=== PATIENT | female | born 1950 | race Caucasian/White ===

== ENCOUNTER → 2017-08-26 | Outpatient (CLI) | payer OTHER ==
[~2017-08-26] MED LIST: ASP81CT PO; ASP81TEC PO; ATOR80TA PO; CARV12.53 PO; CLOP75TA PO; DULO60CA6 PO; GLIP10TA13 PO; LIRA0.6P SQ; METF-380 PO; NIA500ERT PO; OMG1KC PO; UBID30CA13 PO
--- NOTE | 2017-08-26 12:24 | Diagnostic Imaging Report ---
PROCEDURE: US abdomen complete. TECHNIQUE: Multiple real-time grayscale images were obtained over the abdomen in various projections. INDICATION: Abdominal pain Units: The visualized portions of the pancreas appear markable. The liver is fairly homogeneous. It is the slightly enlarged measuring the 21.6 CM in craniocaudal extent dimension. There is hepatopedal flow the portal vein. There is some no gallstone or from progressive fluid. The there is slight wall thickening with ringdown artifact in the gallbladder fundus area suggestive of adenomyomatosis. Sonographic Hernadez sign is reportedly negative. The CBD is the 4 mm in caliber. The spleen is 10.7 CM in length. The abdominal aorta demonstrate the focal ectasia measuring up to 2.6 CM in caliber in its mid segment without a large aneurysm. The IVC visualized portions appear grossly unremarkable. The right kidney is 10.8 and the left kidney is also 10.8 CM in length. No hydronephrosis or focal lesion. No fluid collection or ascites in the abdomen seen. Impression: 1. No gallstones. 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 2. Hepatomegaly. Dictated by: Dictated on workstation # [id number]
== END ==
LOC: RAD 06:43
PROVIDERS: ATTEND Family Medicine
DX: R16.0 Hepatomegaly, not elsewhere classified (principal); D13.5 Benign neoplasm of extrahepatic bile ducts
CPT/HCPCS: 76700

== ENCOUNTER → 2017-08-29 | Outpatient (CLI) | payer OTHER ==
--- NOTE | 2017-08-29 15:57 | Diagnostic Imaging Report ---
EXAMINATION: Transabdominal and transvaginal pelvic ultrasound. INDICATION: Left upper quadrant pain. FINDINGS: The uterus is 6.8 x 4.4 x 3.1 cm. The endometrial stripe is 0.9 cm in caliber. The myometrium is slightly heterogenous with no discrete focal mass. The endometrial stripe is thickened at 0.9 cm. This could relate to endometrial hyperplasia, polyp or cancer. The ovaries are obscured by bowel gas and are probably atrophic. No definite adnexal mass or fluid collection is seen. IMPRESSION: There is a thickening of the endometrial stripe up to 0.9 cm. Differential considerations include endometrial hyperplasia, polyp or carcinoma. The findings were discussed with Ms. Ave Arora, the nurse practitioner working with Dr. Barnes at time of dictation, by phone. Dictated by: Dictated on workstation # [id number]
== END ==
LOC: RAD 14:52
PROVIDERS: ATTEND Family Medicine
DX: R93.8 Abnormal findings on diagnostic imaging of other specified body structures (principal); R10.12 Left upper quadrant pain
CPT/HCPCS: 76830; 76856

== ENCOUNTER 2017-09-12 14:30 | Outpatient (CLI) | payer OTHER ==
[~2017-09-12] VITALS: Ht 170.2 cm; Wt 78.5 kg
[2017-09-12] MEDS ORDERED: CLOP75TA28 PO (14:53)
[2017-09-12] MEDS ORDERED: LISI-556 PO (14:53)
[2017-09-12] MEDS ORDERED: ASPI-999 PO (14:53)
[2017-09-12] MEDS ORDERED: CARV12.53 PO (14:53)
[2017-09-12] MEDS ORDERED: METF500T4 PO ×2 (14:53)
[2017-09-12] MEDS ORDERED: ROSU40TA20 PO (14:53)
[2017-09-12] MEDS ORDERED: GLIP10TA13 PO (14:53)
[2017-09-12] MEDS ORDERED: DULA1.5P2 SQ (14:53)
[2017-09-12] MEDS ORDERED: DULO60CA58 PO (14:53)
== END 2017-09-12 14:54 ==
LOC: PREOP 14:30
PROVIDERS: ATTEND Surgery
DX: Z01.818 Encounter for other preprocedural examination (principal); Z86.010 Personal history of colon polyps; Z80.0 Family history of malignant neoplasm of digestive organs

== ENCOUNTER 2017-09-18 09:25 | Day surgery (SDC) | payer OTHER ==
[~2017-09-18] VITALS: Ht 170.2 cm; Wt 78.5 kg
[~2017-09-18 09:25] MED LIST changes: +ASPI-999 PO; +CLOP75TA28 PO; +DULA1.5P2 SQ; +DULO60CA58 PO; +LISI-556 PO; +METF500T4 PO; +ROSU40TA20 PO
[2017-09-18] MEDS ORDERED: NS IV 500 ML 500 ML IV PRN (09:37)
[2017-09-18] MEDS ORDERED: NS IV 500 ML 500 ML ONE (09:39)
[2017-09-18] MEDS ORDERED: LIDOCAINE JELLY 2% (XYLOCAINE) 5 ML TUBE MM PRN (09:45)
[2017-09-18] MEDS ORDERED: LIDOCAINE JELLY 2% (XYLOCAINE) 5 ML TUBE ONE (09:47)
[2017-09-18] MEDS ORDERED: fentaNYL INJECTION 100 MCG/2 ML AMP ONE ×2 (09:47)
[2017-09-18 09:48] VITALS: BP 128/71
[2017-09-18] MEDS ORDERED: MIDAZOLAM 2 MG/2 ML (VERSED) VIAL ONE ×4 (09:48)
--- NOTE | 2017-09-18 10:02 | Conscious Sedation/ASA ---
Conscious Sedation Pre-Proced Time Reviewed: 09:30 ASA Class: 2 Airway Mallampati Classification: ([place] appropriate class) I. II. III, IV Lungs Heart ASA score ASA 1: a normal healthy patient ASA 2: a patient with a mild systemic disease (mid diabetes, controlled hypertension, obesity ASA 3: a patient with a severe systemic disease that limits activity (angina , COPD, prior Myocardial infarction) ASA 4: a patient with an incapacitating disease that is a constant threat to life (CHF, renal failure) ASA 5: a moribund patient not expected to survive 24 hrs. (ruptured aneurysm) ASA 6: a declared brain patient whose organs are being harvested. For emergent operations, add the letter E after the classification Grade 2 Sedation Plan: Analgesia, Amnesia, Plan communicated to team members, Discussed options with patient/fam, Discussed risks with patient/fam Note The patient is an appropriate candidate to undergo the planned procedure, sedation, and anesthesia. The patient immediately re-assessed prior to indication. OLIVIA SORENSON MD Sep 18, 2017 10:02 am
[2017-09-18] MEDS: fentaNYL INJECTION 100 MCG/2 ML AMP IVP PRN ×4 (10:03→10:30)
--- NOTE | 2017-09-18 10:03 | Progress Note-Pre Operative ---
Pre-Operative Progress Note H&P Reviewed The H&P was reviewed, patient examined and no changes noted. Date Seen by Provider: Sep 18, 2017 Time Seen by Provider: 09:30 Date H&P Reviewed: Sep 18, 2017 Time H&P Reviewed: 09:30 Pre-Operative Diagnosis: family hx colon ca OLIVIA SORENSON MD Sep 18, 2017 10:03 am
[2017-09-18] MEDS: MIDAZOLAM 2 MG/2 ML (VERSED) VIAL IVP PRN ×4 (10:04→10:18)
--- NOTE | 2017-09-18 10:05 | Discharge Inst-Surgical ---
D/C Lap Instructions-YAS Follow Up 5 yrs Activity as tolerated High Fiber Diet 25g or more per day Avoid Alcohol, Caffeine, Spicy [place] and Acid foods. Drink 64 fluid oz or more of fluids per day. Symptoms to Report: Fever over 101 degree F, Nausea/Vomiting If any problems/questions: Contact your physician or go to Emergency Room OLIVIA SORENSON MD Sep 18, 2017 10:05 am
--- OUTSIDE RECORDS SUMMARY | 2017-09-18 10:13 | XMS REPORT | Continuity of Care Document ---
Author Author [facility] Organization [facility] Address Unknown Phone Unavailable Allergies Active Description Code Type Severity Reaction Onset Reported/Identified Relationship to Patient Clinical Status Yes No Allergy Information Available [id number] Drug Allergy Unknown N/A 02/14/2016 Medications Problems Date Dx Coded Attending Type Code Diagnosis Diagnosed By 02/14/2016 Ot 397.0 02/14/2016 Ot 401.9 02/14/2016 Ot 414.00 02/14/2016 Ot 424.0 02/14/2016 Ot 401.9 02/14/2016 Ot 414.00 02/14/2016 Ot 397.0 02/14/2016 Ot 414.00 02/14/2016 Ot 424.0 02/14/2016 Ot 428.0 02/14/2016 Ot 786.50 02/14/2016 Ot 793.2 02/14/2016 GERSON BARKER, PHYLLIS Morales Ot I65.23 02/21/2016 Ot 397.0 02/21/2016 Ot 401.9 02/21/2016 Ot 414.00 02/21/2016 Ot 424.0 02/21/2016 Ot 401.9 02/21/2016 Ot 414.00 02/21/2016 Ot 397.0 02/21/2016 Ot 414.00 02/21/2016 Ot 424.0 02/21/2016 Ot 428.0 02/21/2016 Ot 786.50 02/21/2016 Ot 793.2 02/22/2016 PRAVEEN VILLAVICENCIO Ot E11.9 02/22/2016 PRAVEEN VILLAVICENCIO Ot E78.2 02/22/2016 PRAVEEN VILLAVICENCIO Ot I10 02/22/2016 PRAVEEN VILLAVICENCIO Ot I25.10 02/23/2016 PRAVEEN VILLAVICENCIO Ot E11.9 02/23/2016 PRAVEEN VILLAVICENCIO Ot E78.2 02/23/2016 RENETTA VILLAVICENCIOTH K Ot I10 02/23/2016 BERNABE PA, PRAVEEN K Ot I25.10 02/27/2016 BERNABE PA, PRAVEEN K Ot E11.9 02/27/2016 BERNABE PA, PRAVEEN K Ot E78.2 02/27/2016 BERNABE PA, PRAVEEN K Ot I10 02/27/2016 BERNABE PA, PRAVEEN K Ot I25.10 02/28/2016 BERNABE PA, PRAVEEN K Ot E11.9 02/28/2016 BERNABE PA, PRAVEEN K Ot E78.2 02/28/2016 BERNABE PA, PRAVEEN K Ot I10 02/28/2016 BERNABE PA, PRAVEEN K Ot I25.10 02/29/2016 GERSON BARKER, PHYLLIS Morales Ot I65.23 03/04/2016 BRENABE ROLDAN, PRAVEEN K Ot E11.9 TYPE 2 DIABETES MELLITUS WITHOUT COMPLIC 03/04/2016 BERNABE PA, PRAVEEN K Ot E78.2 MIXED HYPERLIPIDEMIA 03/04/2016 BERNABE PA, PRAVEEN K Ot I10 ESSENTIAL (PRIMARY) HYPERTENSION 03/04/2016 BERNABE ROLDAN, PRAVEEN Dolores Ot I25.10 ATHSCL HEART DISEASE OF [place] CORONARY 03/07/2016 BERNABE ROLDAN, PRAVEEN K Ot E11.9 TYPE 2 DIABETES MELLITUS WITHOUT COMPLIC 03/07/2016 BERNABE ROLDAN, PRAVEEN K Ot E78.2 MIXED HYPERLIPIDEMIA 03/07/2016 BERNABE PA, PRAVEEN K Ot I10 ESSENTIAL (PRIMARY) HYPERTENSION 03/07/2016 BERNABE PA, PRAVEEN K Ot I25.10 ATHSCL HEART DISEASE OF [place] CORONARY 03/15/2016 BERNABE ROLDAN, PRAVEEN K Ot E11.9 TYPE 2 DIABETES MELLITUS WITHOUT COMPLIC 03/15/2016 BERNABE PA, PRAVEEN K Ot E78.2 MIXED HYPERLIPIDEMIA 03/15/2016 BERNABE PA, PRAVEEN K Ot I10 ESSENTIAL (PRIMARY) HYPERTENSION 03/15/2016 BERNABE ROLDAN, PRAVEEN K Ot I25.10 ATHSCL HEART DISEASE OF [place] CORONARY 08/06/2017 Ot 397.0 TRICUSPID VALVE DISEASE 08/06/2017 Ot 414.00 CORON ATHEROSCLER NOS TYPE VESSEL, NATIV 08/06/2017 Ot 424.0 MITRAL VALVE DISORDER 08/06/2017 Ot 428.0 CONGESTIVE HEART FAILURE NOS 08/06/2017 Ot 786.50 CHEST PAIN NOS 08/06/2017 Ot 793.2 NOSP (ABN) FINDINGS ON RADIOLOGICAL OT 08/06/2017 PRAVEEN VILLAVICENCIO Ot E11.9 TYPE 2 DIABETES MELLITUS WITHOUT COMPLIC 08/06/2017 PRAVEEN VILLAVICENCIO Ot E78.2 MIXED HYPERLIPIDEMIA 08/06/2017 PRAVEEN VILLAVICENCIO Ot I10 ESSENTIAL (PRIMARY) HYPERTENSION 08/06/2017 PRAVEEN VILLAVICENCIO Ot I25.10 ATHSCL HEART DISEASE OF [place] CORONARY 09/04/2017 UDAY SALAZAR MD Ot R10.12 LEFT UPPER QUADRANT PAIN 09/04/2017 UDAY SALAZAR MD Ot R93.8 ABNORMAL FINDINGS ON DIAGNOSTIC IMAGING 09/06/2017 UDAY SALAZAR MD Ot 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 Visit Date/Time Discharge Status Pt. Type Provider Facility Loc./Unit Complaint [id number] 09/11/2017 05:30:00 2016 23:59:59 CLS Outpatient OLIVIA SORENSON MD [facility] PREOP COLO [id number] 08/29/2017 14:52:00 2016 23:59:59 CLS Outpatient UDAY SALAZAR MD [facility] RAD ABDOMINAL PAIN LUQ R10.12 [id number] 08/26/2017 06:43:00 2016 23:59:59 CLS Outpatient UDAY SALAZAR MD [facility] RAD ABDOMINAL PAIN LEFT UPPER QUADRANT [id number] 08/08/2017 15:15:00 2016 23:59:59 CLS Preadmit MARTIN BARKER, UDAY R [facility] RAD LUQ ABD PAIN [id number] 02/27/2016 07:08:00 2015 23:59:59 CLS Outpatient PRAVEEN VILLAVICENCIO [facility] CARD [id number] 02/21/2016 14:51:00 2015 23:59:59 CLS Outpatient PRAVEEN VILLAVICENCIO [facility] CARD CAD,HTN,HLP, NIDDM [id number] 02/14/2016 13:02:00 2015 23:59:59 CLS Outpatient GERSON BARKER, PHYLLIS Morales [facility] RAD [id number] 09/18/2017 09:30:00 PEN Preadmit OLIVIA SORENSON MD [facility] ENDO FAM HX COLON CA, HX POLYPS [id number] 02/21/2016 14:51:00 Document Registration [id number] 02/25/2013 10:45:00 Document Registration [id number] 08/13/2011 07:02:00 Document Registration [id number] 08/10/2011 08:28:00 Document Registration
[2017-09-18] MEDS ORDERED: ONDANSETRON 4 MG/2 ML (SDV) Z0FRAN IV PRN (10:15)
[2017-09-18] MEDS ORDERED: HYDROcodone/APAP 5 MG/325 MG (LORTAB) TAB PO PRN (10:15)
[2017-09-18] MEDS ORDERED: morphine INJ 10 MG/ML 1ML (SYR OR VIAL) IV PRN (10:15)
[2017-09-18] MEDS ORDERED: ACETAMINOPHEN 325 MG TABLET/CAPLET (TYLENOL) PO PRN (10:15)
--- NOTE | 2017-09-18 10:58 | Progress Note-Post Operative ---
Post-Operative Progess Note Surgeon (s)/Switch Technician (s) Surgeon OLIVIA SORENSON MD Switch Technician: none Pre-Operative Diagnosis family hx colon ca Post-Operative Diagnosis chronic stage 2 ext and int hemorrhoids, moderate sigmoid diverticulosis, polyp tranverse colon(2mm), polyp ascending(3mm). Procedure & Operative Findings Date of Procedure 09/18/17 Procedure Performed/Findings Colonoscopy with bx. Anesthesia Type CS Estimated Blood Loss Estimated blood loss (mL): minimal Specimens/Packing Specimens Removed transverse and ascending colon polyp OLIVIA SORENSON MD Sep 18, 2017 10:58 am
[2017-09-18 11:00] VITALS: BP 132/76
[2017-09-18 11:30] VITALS: BP 122/61
[2017-09-18 12:10] VITALS: BP 122/61
--- NOTE | 2017-09-19 04:11 | OPERATIVE REPORT ---
DATE OF SERVICE: 09/18/2017 ATTENDING PHYSICIAN: Dr. Barnes. PREOPERATIVE DIAGNOSES: History of polyps, family history of colon cancer. POSTOPERATIVE DIAGNOSES: Chronic stage II external and internal hemorrhoids, moderate sigmoid diverticulosis, small polyp of the transverse colon and ascending colon. PROCEDURE: Colonoscopy with biopsy. SURGEON: Dr. Sorenson. ANESTHESIA: Conscious sedation. ESTIMATED BLOOD LOSS: Minimal. FINDINGS: Chronic stage II external and internal hemorrhoids, moderate sigmoid diverticulosis, small polyp of the transverse as well as ascending colon. The transverse colon polyp was approximately 2 mm in size and flat. The ascending colon polyp was approximately 3 mm in size and slightly more raised. DISPOSITION: The patient tolerated the procedure well. The patient is a 66-year-old female in need of a followup colonoscopy. Her last colonoscopy was approximately 8 years ago and on that one she did have polyps identified. She also does have a family history of colon cancer with her father having the disease around 36 years of age as well as her daughter having a disease around 34 years of age. She also has had some abdominal pain in the right upper quadrant region. An ultrasound did show gallbladder adenomyomatosis The patient was brought to the endoscopy suite, laid in the left lateral decubitus position. After adequate IV pain and sedative medications and conscious sedation anesthesia, a digital rectal examination was performed. Chronic stage II external and internal hemorrhoids were identified, which are not actively edematous or inflamed and no bleeding. Normal sphincter tone was felt and there were no palpable masses. The endoscope was then intubated to the anus and rectum and gently insufflated. The endoscope was then advanced to the valves of [place] of the rectum with no polyps or any neoplasms identified. We then proceeded through the sigmoid colon where a moderate sigmoid diverticulosis identified. There were no mucosal inflammatory change to indicate any acute diverticulitis. The endoscope was then advanced to the descending colon and into the transverse colon. At approximately the distal transverse colon, flat, hyperplastic appearing polyp was identified approximately 2 mm in size. This was biopsied and destroyed using forceps and electrocautery with visualization of good hemostasis. The endoscope was then advanced through the remainder of the transverse and ascending colon. At the ascending colon, a slightly larger and more raised polyp was identified approximately 3 mm in size. This was again biopsied and destroyed with forceps and cautery with visualization of good hemostasis. The endoscope was then advanced to the cecum, which appeared normal. The endoscope was then slowly withdrawn when taking a second look and suctioning of residual air with no additional findings. The patient tolerated the procedure well. We will recommend a high fiber diet with at least 30 grams of fiber per day as well as at least 64 fluid ounces of water daily to promote soft stools on a daily basis. Due to her history of recurrent colon polyps as well as strong family history of colon cancer, we will recommend continued close follow up with colonoscopy every 5 years. Job ID: [id number] DocumentID: [id number] Dictated Date: 09/18/2017 10:49:28 Automobile Drivers Date: 09/18/2017 16:19:41 Dictated By: OLIVIA SORENSON MD
== END 2017-09-18 12:10 | disposition home or self-care (01) ==
LOC: ENDO 09:25
PROVIDERS: ATTEND Surgery
DX: Z12.11 Encounter for screening for malignant neoplasm of colon (principal); D12.2 Benign neoplasm of ascending colon; D12.3 Benign neoplasm of transverse colon; K57.30 Diverticulosis of large intestine without perforation or abscess without bleeding; K64.1 Second degree hemorrhoids; Z86.010 Personal history of colon polyps; Z80.0 Family history of malignant neoplasm of digestive organs; E11.42 Type 2 diabetes mellitus with diabetic polyneuropathy; I25.10 Atherosclerotic heart disease of native coronary artery without angina pectoris; Z86.73 Personal history of transient ischemic attack (TIA), and cerebral infarction without residual deficits; Z79.84 Long term (current) use of oral hypoglycemic drugs; Z79.899 Other long term (current) drug therapy

== ENCOUNTER 2017-10-04 09:10 | Outpatient (CLI) | payer OTHER ==
[~2017-10-04] VITALS: Ht 170.2 cm; Wt 77.1 kg
[2017-10-04 09:24] VITALS: BP 100/65
[2017-10-04] MEDS ORDERED: SPIR25TA3 PO (09:32)
[2017-10-04 09:53] LABS: BASOPHILS % (AUTO) 0 % (0-10); EOSINOPHILS # (AUTO) 0.1 10^3/uL (0.0-0.3); EOSINOPHILS % (AUTO) 1 % (0-10); LYMPHOCYTES # (AUTO) 2.8 X 10^3 (1.0-4.0); LYMPHOCYTES % (AUTO) 28 % (12-44); MEAN CORPUSCULAR HEMOGLOBIN 31 PG (25-34); MEAN CORPUSCULAR HGB CONC 33 G/DL (32-36); MEAN CORPUSCULAR VOLUME 92 FL (80-99); MEAN PLATELET VOLUME 11.5 FL (7.4-10.4); MONOCYTES # (AUTO) 0.8 X 10^3 (0.0-1.0); MONOCYTES % (AUTO) 9 % (0-12); NEUTROPHILS # (AUTO) 6.1 X 10^3 (1.8-7.8); NEUTROPHILS % (AUTO) 62 % (42-75); PLATELET COUNT 175 10^3/uL (130-400); RED BLOOD COUNT 4.79 10^6/uL (4.35-5.85); RED CELL DISTRIBUTION WIDTH 13.4 % (10.0-14.5); WHITE BLOOD COUNT 9.9 10^3/uL (4.3-11.0)
== END 2017-10-04 10:03 | disposition home or self-care (01) ==
LOC: PREOP 09:10
PROVIDERS: ATTEND Obstetrics & Gynecology
DX: Z01.818 Encounter for other preprocedural examination (principal); R93.8 Abnormal findings on diagnostic imaging of other specified body structures
CPT/HCPCS: 36415; 85025; 86850; 86900; 86901; 87081

== ENCOUNTER 2017-10-11 06:09 | Day surgery (SDC) | payer OTHER ==
[~2017-10-11] VITALS: Ht 170.2 cm; Wt 77.1 kg
[~2017-10-11 06:09] MED LIST changes: +SPIR25TA3 PO
[2017-10-11 06:20] VITALS: BP 106/65
[2017-10-11] MEDS ORDERED: LACTATED RINGERS 1,000 ML IV PRN (06:28)
[2017-10-11] MEDS ORDERED: LIDOCAINE PF 2% 5 ML (XYLOCAINE) VIAL ONE (07:00)
[2017-10-11] MEDS ORDERED: proPOfol 200 MG/20 ML (DIPRIVAN) VIAL IV ONE (07:00)
[2017-10-11] MEDS ORDERED: SEVOFLURANE (ULTANE) 15 ML INHAL SOLN ONE (07:00)
[2017-10-11] MEDS ORDERED: MIDAZOLAM 2 MG/2 ML (VERSED) VIAL ONE (07:01)
[2017-10-11] MEDS ORDERED: fentaNYL INJECTION 100 MCG/2 ML AMP ONE (07:01)
[2017-10-11] MEDS ORDERED: BUPIVACAINE 0.25% 30 ML (SENSORCAINE) VIAL ONE (07:02)
[2017-10-11] MEDS ORDERED: D5 LR IV SOLUTION 1,000 ML IV SCH (07:05)
--- NOTE | 2017-10-11 07:05 | Progress Note-Pre Operative ---
Pre-Operative Progress Note H&P Reviewed The H&P was reviewed, patient examined and no changes noted. Date Seen by Provider: Oct 11, 2017 Time Seen by Provider: 07:00 Date H&P Reviewed: Oct 11, 2017 Time H&P Reviewed: 06:55 Pre-Operative Diagnosis: Thickened endometrium on US, Postmenopausal JOHN CRUZ DO Oct 11, 2017 7:05 am
[2017-10-11] MEDS ORDERED: ACET-789 PO (07:11)
[2017-10-11] MEDS ORDERED: IBUP-1773 PO (07:11)
--- NOTE | 2017-10-11 07:12 | Discharge Inst-Women's Service ---
Discharge Inst-Women's Serv Depart Medication/Instructions New, Converted or Re-Newed RX: RX on Chart Consults/Follow Up Additional Follow Up: Yes Orders/Referrals Dr. Cruz in 3 weeks. Activity Activity: Activity as Tolerated Driving Instructions: You May Drive (do not drive today) NO SMOKING: NO SMOKING Nothing Inside Vagina: No Douching, No [place], No Tampons Other Activity Wait to restart plavix until Saturday10/14/2017 Diet Discharge Diet: No Restrictions Symptoms to Report to : Bleeding Excessive, Pain Increased, Fever Over 101 Degrees F, Vaginal Bleeding Increase, Questions/Concerns For Any Problems or Questions: Contact Your Physician Skin/Wound Care Bathing Instructions: Shower (x 1 week) JOHN CRUZ DO Oct 11, 2017 07:12
[2017-10-11] MEDS ORDERED: APAP 300 MG/CODEINE 30 MG (TYLENOL #3) TAB PO PRN (07:15)
[2017-10-11] MEDS ORDERED: KETOROLAC 30 MG/ML VIAL IVP ONE (07:15)
[2017-10-11] MEDS ORDERED: ONDANSETRON 4 MG/2 ML (SDV) Z0FRAN IVP PRN ×2 (07:15→08:00)
[2017-10-11] MEDS ORDERED: morphine INJ 10 MG/ML 1ML (SYR OR VIAL) IVP PRN (08:00)
[2017-10-11] MEDS ORDERED: MEPERIDINE (DEMEROL) INJ 50 MG/ML IVP PRN (08:00)
[2017-10-11 08:35] VITALS: BP 127/68
--- NOTE | 2017-10-11 08:56 | OPERATIVE REPORT ---
DATE OF SERVICE: PREOPERATIVE DIAGNOSIS: A 66-year-old female who is postmenopausal with thickened endometrium. POSTOPERATIVE DIAGNOSIS: A 66-year-old female who is postmenopausal with thickened endometrium. PROCEDURE: D and C with hysteroscopy. SURGEON: Dr. John Cruz. ANESTHESIA: General endotracheal. EBL: Minimal. URINE OUTPUT: 30 mL clear drained at the beginning of the procedure. FLUIDS: 200 mL Lactated Ringer's solution. FINDINGS: An age appropriate atrophied appearing endometrial cavity with normal appearing cervix, age appropriate vaginal atrophy with a grade 2 rectocele and a grade 2 cystocele. SPECIMEN SENT: Endometrial curettings. INDICATION FOR PROCEDURE: This is a 66-year-old female as a consultation to me from Dr. Barnes for finding of thickened endometrium incidentally on CT followed by ultrasound. The patient did not have any episodes of postmenopausal bleeding; however, had concerns about this due to family history of gynecologic cancers. She wished to rule out the possibility of endometrial carcinoma due to the thickness on ultrasound, I told her that a followup would be appropriate on ultrasound; however, I could not give her a definitive answer, therefore she opted to proceed with endometrial sampling. Risk of in office versus operative endometrial sample collection was discussed with the patient in detail and she wished to proceed with hysteroscopy as well to hopefully identify any other intrauterine abnormalities. After all the patient's questions were answered including everything covered about risks, anesthesia, pre and postoperative expectations as well as holding her Plavix. The patient was scheduled at her next earliest convenience. The procedure reviewed in preoperative area and the patient was taken to the operating room after consent was obtained. Once in the operating room, general anesthesia was found to be adequate, placed in dorsal lithotomy position, prepped and draped in normal sterile fashion. She was first examined under anesthesia. The uterus is not enlarged, freely mobile. There are no adnexal masses or fullness appreciated on bimanual examination. The bladder was then drained using straight catheterization. Weighted speculum inserted into the patient's vagina. A right angle retractor was used to visualize the cervix. Cervix is grasped at 12 o'clock position using long Allis clamp. I placed paracervical block at 3 and 9 o'clock positions using 0.25% Marcaine. Care was taken to aspirate before injecting. A total of 10 mL was used at a total of 5 at each site. I then gently sound the uterine cavity depth, which was found to be 6 cm. I then gently dilated the cervix using Hegar dilators to a maximum dilatation of approximately 7 mm at which point, I advanced a TRUCLEAR hysteroscope using normal saline as my visual medium and able to visualize endometrial cavity, which appears to be free of any defect. There is a small amount of fluffy endometrial tissue on the anterior uterine wall that could be suspicious for an endometrial polyp. Otherwise, the cavity itself appears normal. I then removed the hysteroscope, clear the vaginal vault of excess normal saline and perform a curetting using a small endometrial curet. A scant amount of endometrial tissue is collected and sent as endometrial curettings, after which procedure was deemed complete. There is no active bleeding noted from any of my injection sites or from the cervix. All instruments removed from the patient's vagina. The patient tolerated the procedure well sent to recovery in stable condition. Lap and sponge counts correct at the end procedure. Instrument counts were correct as well. Job ID: [id number] DocumentID: [id number] Dictated Date: 10/11/2017 08:14:09 Sharepoint Designer Developer Date: 10/11/2017 08:55:37 Dictated By: JOHN CRUZ DO MTDKatlyn
[2017-10-11 09:05] VITALS: BP 126/66
[2017-10-11 09:35] VITALS: BP 126/66
[2017-10-11] MEDS ORDERED: IBUPROFEN 600 MG (MOTRIN) TAB PO PRN (13:00)
== END 2017-10-11 09:40 | disposition home or self-care (01) ==
LOC: SDC 06:09
PROVIDERS: ATTEND Obstetrics & Gynecology
DX: R93.8 Abnormal findings on diagnostic imaging of other specified body structures (principal); Z78.0 Asymptomatic menopausal state; N81.10 Cystocele, unspecified; N81.6 Rectocele; E11.9 Type 2 diabetes mellitus without complications; E78.5 Hyperlipidemia, unspecified; I10 Essential (primary) hypertension; I25.10 Atherosclerotic heart disease of native coronary artery without angina pectoris; G47.33 Obstructive sleep apnea (adult) (pediatric); F17.210 Nicotine dependence, cigarettes, uncomplicated; G57.93 Unspecified mononeuropathy of bilateral lower limbs; Z79.02 Long term (current) use of antithrombotics/antiplatelets; Z79.4 Long term (current) use of insulin; Z79.899 Other long term (current) drug therapy; Z86.73 Personal history of transient ischemic attack (TIA), and cerebral infarction without residual deficits
CPT/HCPCS: 82962; 94664

== ENCOUNTER → 2018-02-19 | Outpatient (CLI) | payer OTHER ==
[~2018-02-19] MED LIST changes: +ACET-789 PO; +CATHETER FLUSH 10 ML SYR IV PRN; +IBUP-1773 PO; +REGADENOSON 0.4 MG/5 ML SYR (LEXISCAN) IV ONE; -ROSU40TA20 PO; +ROSU40TA21 PO
--- NOTE | 2018-02-19 15:02 | STRESS TEST ---
DATE OF SERVICE: 02/19/2018 LEXISCAN MYOVIEW STRESS TEST REPORT REFERRING PHYSICIAN: Dr. Jimenes. Baseline heart rate is 86. Baseline blood pressure is 136/63. Baseline EKG is sinus rhythm with no ischemic changes. In summary, the patient was injected with 10.06 mCi of technetium-99 Myoview and the resting images were obtained. Then, the patient received 0.4 mg of Lexiscan followed by 29.7 mCi of technetium-99 Myoview. Throughout the test, there were no EKG changes. The resting and stress images were reviewed and compared in the short axis, horizontal long axis, and vertical long axis views. Review of the images showed breast attenuation with reversible ischemia involving the mid to apical anterior wall and mid to apical inferior wall. SSS is 8, SDS 8, TID value 1.02. On the gated images, the left ventricle appeared to be normal size with normal contractility. Calculated ejection fraction 63%. CONCLUSION: 1. The patient tolerated Lexiscan well. 2. Breast attenuation with reversible ischemia involving the mid to apical anterior wall, mid to apical inferior wall. 3. Normal left ventricular size with normal contractility. Calculated ejection fraction 63%. Job ID: [id number] DocumentID: [id number] Dictated Date: 02/19/2018 14:24:08 Street Light Lamp Cleaner Date: 02/19/2018 14:49:22 Dictated By: PHYLLIS NIETO MD
== END ==
LOC: CARD 07:43
PROVIDERS: ATTEND Internal Medicine Cardiovascular Disease
DX: I25.10 Atherosclerotic heart disease of native coronary artery without angina pectoris (principal); I10 Essential (primary) hypertension; E78.5 Hyperlipidemia, unspecified; E11.9 Type 2 diabetes mellitus without complications; Z72.0 Tobacco use
CPT/HCPCS: 78452; 93017

== ENCOUNTER 2018-03-05 06:49 | Day surgery (SDC) | payer OTHER ==
[2018-03-05] VITALS (10 sets, daily range): BP systolic 96–122; BP diastolic 60–77
[~2018-03-05] VITALS: Ht 170.2 cm; Wt 77.1 kg
[~2018-03-05 06:49] MED LIST changes: -CATHETER FLUSH 10 ML SYR IV PRN; -METF500T4 PO; +METF500T5 PO; -REGADENOSON 0.4 MG/5 ML SYR (LEXISCAN) IV ONE; -ROSU40TA21 PO; +ROSU40TA22 PO; -SPIR25TA3 PO; +SPIR25TA5 PO
[2018-03-05] MEDS ORDERED: HEParin (CATH LAB) 2,000 ML IV ONE (06:55)
[2018-03-05] MEDS ORDERED: NS IV 1000 ML 1,000 ML IV SCH ×2 (07:00→09:22)
[2018-03-05 07:20] LABS: HEMOGLOBIN 14.9 G/DL (11.5-16.0); MEAN PLATELET VOLUME 11.3 FL (7.4-10.4); RED BLOOD COUNT 4.86 10^6/uL (4.35-5.85); RED CELL DISTRIBUTION WIDTH 13.5 % (10.0-14.5); WHITE BLOOD COUNT 7.7 10^3/uL (4.3-11.0)
--- NOTE | 2018-03-05 07:30 | Cardiac Procedure Note-CS/ASA ---
Pre-Procedure Note Pre-Op Procedure Note H&P Reviewed The H&P was reviewed, patient examined and no changes noted. Date H&P Reviewed: Mar 05, 2018 Time H&P Reviewed: 07:30 Conscious Sedation Pre-Proced Time Reviewed: 07:30 ASA Class: 3 Airway Mallampati Classification: ([place] appropriate class) I. II. III, IV Lungs Heart ASA score ASA 1: a normal healthy patient ASA 2: a patient with a mild systemic disease (mid diabetes, controlled hypertension, obesity x ASA 3: a patient with a severe systemic disease that limits activity (angina , COPD, prior Myocardial infarction) ASA 4: a patient with an incapacitating disease that is a constant threat to life (CHF, renal failure) ASA 5: a moribund patient not expected to survive 24 hrs. (ruptured aneurysm) ASA 6: a declared brain patient whose organs are being harvested. For emergent operations, add the letter E after the classification Grade 3 Sedation Plan: Analgesia, Amnesia, Plan communicated to team members, Discussed options with patient/fam, Discussed risks with patient/fam Note The patient is an appropriate candidate to undergo the planned procedure, sedation, and anesthesia. The patient immediately re-assessed prior to indication. PHYLLIS NIETO MD Mar 05, 2018 07:30
[2018-03-05] MEDS ORDERED: fentaNYL INJECTION 100 MCG/2 ML AMP ONE (07:32)
[2018-03-05] MEDS ORDERED: LIDOCAINE 1% INJ 50 ML (XYLOCAINE) VIAL ONE (07:32)
[2018-03-05] MEDS ORDERED: MIDAZOLAM 5 MG/5 ML (VERSED) VIAL ONE (07:32)
[2018-03-05] MEDS ORDERED: CHOL200012 PO (07:33)
[2018-03-05] MEDS ORDERED: OMEG1CAP24 PO (07:33)
[2018-03-05 07:36] LABS: INR 1.1 (0.8-1.4); PROTHROMBIN TIME PATIENT 14.4 SEC (12.2-14.7)
[2018-03-05 07:38] LABS: ALANINE AMINOTRANSFERASE 29 U/L (0-55); ALBUMIN 4.2 GM/DL (3.2-4.5); ALKALINE PHOSPHATASE 88 U/L (40-136); BILIRUBIN,TOTAL 0.4 MG/DL (0.1-1.0); BUN/CREATININE RATIO 21; CALCIUM 9.5 MG/DL (8.5-10.1); CARBON DIOXIDE 23 MMOL/L (21-32); CHLORIDE 105 MMOL/L (98-107); CHOLESTEROL 132 MG/DL (< 200); CREATININE SERUM 0.77 MG/DL (0.60-1.30); GFR ESTIMATED > 60; GLUCOSE 194 MG/DL (70-105); HDL CHOLESTEROL 36 MG/DL (40-60); POTASSIUM 4.2 MMOL/L (3.6-5.0); SODIUM 139 MMOL/L (135-145); TOTAL PROTEIN 7.6 GM/DL (6.4-8.2); TRIGLYCERIDES 134 MG/DL (<150); VLDL CHOLESTEROL 27 MG/DL (5-40)
--- NOTE | 2018-03-05 08:07 | Diagnostic Imaging Report ---
INDICATION: Pre-heart catheterization. Time of exam: 7:13 AM Correlation is made with prior study of 06/12/2007. The heart size is normal. The pulmonary vascularity is unremarkable. The lungs are clear. No infiltrate, effusion or pneumothorax is detected. IMPRESSION: No acute cardiopulmonary process is detected. Dictated by: Dictated on workstation # [id number]
--- NOTE | 2018-03-05 09:25 | Discharge Inst-Post CATH ---
Discharge Inst-CATH Post Cardiac Cath D/C Inst Follow Up/Plan Appointment with Dr. Hoover's office next week Appointment with Dr. Nieto's office in 2-4 weeks Hold metformin for 48 hours CARDIAC CATH DISCHARGE INSTRUCTIONS *Hold Metformin for 48 hours post heart cath. ACTIVITY * Go Home directly and rest. * Limit activity of the leg (or wrist if it was used) for 7 days including aerobics, swimming, jogging, bicycling, etc. * Restrict stair-climbing for 7 days if possible, if not, climb up with your non -cath leg, then bring together on the same step. * Avoid lifting, pushing, pulling or excessive movement of the affected extremity for 7 days. * Customary sexual activity may be resumed after 2 days-use caution not to use a position that strains or causes pain to the affected extremity. * No driving for 24 hours. * NO SMOKING. * Avoid straining for bowel movements for 7 days. * Gentle walking on level ground is allowed. * Returning to work will depend on the type of procedure and the results. Your doctor will discuss this with you. CALL YOUR DOCTOR FOR ANY OF THE FOLLOWING: *If bleeding from the puncture site occurs- Apply gentle pressure to site with clean cloth and call your doctor or EMS. * If a knot or lump forms under the skin, increases in size, or causes pain. * If bruising appears to be worsening or moving further down your leg instead of disappearing. * Temperature above 101 F. CARE OF YOUR GROIN INCISION; * Bruising or purple discoloration of the skin near the puncture site is common. * You may shower only, no bathtub bathing for 5 days. Be careful to avoid slipping as your leg may feel stiff. * If a closure device was used on your femoral artery, please see the attached guide regarding care of the device and your leg. * REMOVE the dressing from your groin the next day after your procedure in the shower. CARE OF YOUR WRIST INCISION; * Bruising or purple discoloration of the skin near the puncture site is common. * You may shower. * DO NOT submerge wrist. * Remove dressing in 24 hours. PHYLLIS NIETO MD Mar 05, 2018 09:25
[2018-03-05] MEDS ORDERED: PATIENT MAY USE OWN MEDS, ALL PO SCH (09:30)
--- NOTE | 2018-03-05 09:32 | Cardiac Cath Report ---
Cardiac Cath Report Physician (s)/Regional Economic Liaison (s) Physician PHYLLIS NIETO MD Pre-Procedure Diagnosis Pre-Procedure Diagnosis: Coronary artery disease Post-Procedure Note Procedure Start Date: Mar 05, 2018 Name of Procedure: Left heart catheterization, left ventriculogram Abdominal aortogram with bilateral lower Extremities runoff Findings/Procedure Note PROCEDURE NOTE: After explaining the procedure to the patient, all pros and cons were explained , all questions were answered. The patient signed the consent and then she was placed on the cardiac catheterization laboratory. Groin was prepped SL fashion local anesthesia was used. I had significant difficulties accessing the right femoral artery, pulse was extremely weak, I tried on the left without success also then I went back to the right and I was able to get minimal flow through the needle, difficulty advancing a stork wire then I placed a sheath angiogram showed total occlusion at the right common iliac artery. I tried with a stork wire and Glidewire initially without success then I used command wire and was able to advance it to the thoracic aorta advanced over the wire a mini catheter and did the small injections through the mini catheter which showed a true lumen. At that point I try exchange over the command wire the mini catheter into a straight catheter without success subsequently I removed the wire and then tried again with a glide wire and I was successful in advancing a straight catheter to the abdominal aorta, did abdominal aortogram and the catheter was within the lumen no dissection was noted then I exchanged it over long wire into Krystina right catheter that was advanced to the left ventricular cavity and left ventricular gram was done pressure was measured, pullback LV to aorta was done. Patient is known to have occluded right coronary artery I did right coronary angiogram then exchanged over long J-wire into Krystina left catheter, left coronary angiogram was done then I exchanged it again into a pigtail catheter that was placed in the abdominal aorta and I did abdominal aortogram then I did abdominal aortogram with bilateral lower extremities runoff then the catheter was removed over a stork wire and sheath was removed and manual pressure applied FINDINGS: Hemodynamics LV 108/23 and diastolic pressure of 23 Aorta 107/62 mean of 80 ANATOMY: Left Main has mild disease nonobstructive disease Left Anterior Descending is heavily calcified proximally with 60-70 percent stenosis proximally, moderate disease distally Left Circumflex is moderate in size, the high up to his marginal/ramus intermedius branch has moderate disease, the proper circumflex artery has mild to moderate disease Right Coronory Artery is totally occluded proximally getting filled by collaterals from the left LV Gram was done in the right anterior oblique position, the left ventricle is normal in size with normal contractility estimated ejection fraction 60 percent Aorta evaluation done with abdominal aortogram and bilateral runoff, there is small aneurysmal dilatation infrarenally, the left renal artery appeared to have moderate to severe stenosis, the right common iliac artery is totally occluded with heavily calcified artery and minimal flow on the right lower extremity the left lower extremity has calcified artery with mild disease at the left common iliac artery and mild disease distally diffusely CONCLUSION: 1. Total occlusion of the right coronary artery, 60-70 percent calcified proximal LAD stenosis involving the diagonal and septal branches with moderate disease at the distal LAD 2. Moderate disease at the proximal high obtuse marginal/ramus intermedius branch with mild disease in the proper circumflex artery 3. Normal left ventricular size and systolic function, inferior wall is efrain normally estimated ejection fraction 60 percent 4. Moderate to severe stenosis at the mid left renal artery 5. 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 Regarding the peripheral tail disease patient has total occlusion of the right iliac artery that need to be intervened on, I discussed it with the and he requested to wait and discuss it with his , she will benefit from a sitting iliac stents and evaluating her lower extremity after establishment of better flow. Regarding the left renal artery need to be evaluated and possible angioplasty and stent Meanwhile we will continue maximizing medical therapy Anesthesia Type: Conscious Sedation Estimated blood loss (mL): 15 ml Contrast Amount: 125 ml Total Radiation Dose: 753 mGy Post-Procedure Diagnosis Post-operative diagnosis: Coronary artery disease Peripheral arterial disease Hypertension Hyperlipidemia Diabetes mellitus PHYLLIS NIETO MD Mar 05, 2018 09:32
== END 2018-03-05 13:00 | disposition home or self-care (01) ==
LOC: CATH 06:49 → SURG 09:47 → CATH 13:00
PROVIDERS: ATTEND Internal Medicine Cardiovascular Disease
DX: I25.10 Atherosclerotic heart disease of native coronary artery without angina pectoris (principal); I73.9 Peripheral vascular disease, unspecified; I10 Essential (primary) hypertension; E78.5 Hyperlipidemia, unspecified; E11.9 Type 2 diabetes mellitus without complications; Z86.73 Personal history of transient ischemic attack (TIA), and cerebral infarction without residual deficits; F17.210 Nicotine dependence, cigarettes, uncomplicated; I65.23 Occlusion and stenosis of bilateral carotid arteries
CPT/HCPCS: 36415; 71045; 75630; 80053; 80061; 85027; 85610; 85730; 87081; 93458

== ENCOUNTER → 2018-04-09 | Outpatient (CLI) | payer OTHER ==
[~2018-04-09] MED LIST changes: +CHOL200012 PO; +OMEG1CAP24 PO; +ROSU40TA21 PO; -ROSU40TA22 PO; +SPIR25TA3 PO; -SPIR25TA5 PO
--- NOTE | 2018-04-09 16:18 | Diagnostic Imaging Report ---
Indication: Status post CABG 2 weeks ago with increasing dizziness. Time of exam: 1:23 PM Correlation is made with prior study from 03/05/2018. Postop changes of median sternotomy and CABG are noted. Maybe some minimal pleural fluid in the right base. Mild basilar interstitial changes are noted. Mid and upper lung cowart are clear. No pneumothorax is seen. Impression: Status post CABG with mild basilar interstitial changes and small right pleural effusion. Dictated by: Dictated on workstation # [id number]
== END ==
LOC: RAD 12:51
PROVIDERS: ATTEND Thoracic Surgery (Cardiothoracic Vascular Surgery)
DX: J90 Pleural effusion, not elsewhere classified (principal); I25.810 Atherosclerosis of coronary artery bypass graft(s) without angina pectoris
CPT/HCPCS: 71046

== ENCOUNTER 2018-05-01 17:02 | Emergency (ER) | payer OTHER | END 2018-05-01 18:04 | disposition left against medical advice (07) | LOC: EDUNIT# 17:02 → ER 17:04 | DX: R42 Dizziness and giddiness (principal); W19.XXXA Unspecified fall, initial encounter; Y92.009 Unspecified place in unspecified non-institutional (private) residence as the place of occurrence of the external cause ==

== ENCOUNTER → 2018-06-24 | Outpatient (CLI) | payer MEDICARE, OTHER ==
[~2018-06-24] MED LIST changes: -ROSU40TA21 PO; +ROSU40TA22 PO; -SPIR25TA3 PO; +SPIR25TA5 PO
[2018-06-24 12:00] LABS: BASOPHILS % (AUTO) 0 % (0-10); EOSINOPHILS # (AUTO) 0.1 10^3/uL (0.0-0.3); EOSINOPHILS % (AUTO) 1 % (0-10); HEMATOCRIT 35 % (35-52); HEMOGLOBIN 10.3 G/DL (11.5-16.0); LYMPHOCYTES # (AUTO) 1.3 X 10^3 (1.0-4.0); LYMPHOCYTES % (AUTO) 20 % (12-44); MEAN CORPUSCULAR HEMOGLOBIN 27 PG (25-34); MEAN CORPUSCULAR HGB CONC 30 G/DL (32-36); MEAN CORPUSCULAR VOLUME 90 FL (80-99); MEAN PLATELET VOLUME 10.3 FL (7.4-10.4); MONOCYTES # (AUTO) 0.6 X 10^3 (0.0-1.0); MONOCYTES % (AUTO) 9 % (0-12); NEUTROPHILS # (AUTO) 4.5 X 10^3 (1.8-7.8); NEUTROPHILS % (AUTO) 70 % (42-75); PLATELET COUNT 195 10^3/uL (130-400); RED BLOOD COUNT 3.85 10^6/uL (4.35-5.85); WHITE BLOOD COUNT 6.5 10^3/uL (4.3-11.0)
== END ==
LOC: LAB 11:37
PROVIDERS: ATTEND Physician Assistant
DX: I25.10 Atherosclerotic heart disease of native coronary artery without angina pectoris (principal); I10 Essential (primary) hypertension; E78.5 Hyperlipidemia, unspecified; E11.9 Type 2 diabetes mellitus without complications
CPT/HCPCS: 36415; 85025

== ENCOUNTER → 2018-06-24 | Outpatient (CLI) | payer MEDICARE, OTHER ==
[2018-06-24 12:23] LABS: RED BLOOD COUNT 3.85 10^6/uL (4.35-5.85); RETICULOCYTE % 4.74 % (0.50-2.40)
[2018-06-24 12:34] LABS: BILIRUBIN,TOTAL 0.3 MG/DL (0.1-1.0); BUN/CREATININE RATIO 22; CARBON DIOXIDE 25 MMOL/L (21-32); CHLORIDE 101 MMOL/L (98-107); GFR ESTIMATED > 60; GLUCOSE 306 MG/DL (70-105); POTASSIUM 3.5 MMOL/L (3.6-5.0); SODIUM 138 MMOL/L (135-145)
[2018-06-24 12:35] LABS: ALANINE AMINOTRANSFERASE 32 U/L (0-55); ALBUMIN 4.2 GM/DL (3.2-4.5); ALKALINE PHOSPHATASE 113 U/L (40-136); TOTAL PROTEIN 7.3 GM/DL (6.4-8.2)
== END ==
LOC: LAB 11:32
PROVIDERS: ATTEND Internal Medicine Hematology & Oncology
DX: D50.0 Iron deficiency anemia secondary to blood loss (chronic) (principal)
CPT/HCPCS: 36415; 80053; 82728; 85045

== ENCOUNTER 2018-07-17 13:58 | Outpatient (RCR) | payer MEDICARE, OTHER ==
[~2018-07-17 13:58] MED LIST changes: +METF-397 PO; -METF500T5 PO
== END 2018-07-18 | disposition home or self-care (01) ==
LOC: ONC 13:58
PROVIDERS: ATTEND Internal Medicine Hematology & Oncology
DX: D64.9 Anemia, unspecified (principal); R42 Dizziness and giddiness; I25.10 Atherosclerotic heart disease of native coronary artery without angina pectoris; I10 Essential (primary) hypertension; E78.5 Hyperlipidemia, unspecified; E11.43 Type 2 diabetes mellitus with diabetic autonomic (poly)neuropathy; I73.9 Peripheral vascular disease, unspecified; F17.210 Nicotine dependence, cigarettes, uncomplicated; Z95.820 Peripheral vascular angioplasty status with implants and grafts; Z95.1 Presence of aortocoronary bypass graft; Z79.4 Long term (current) use of insulin; Z79.899 Other long term (current) drug therapy
CPT/HCPCS: 99213

== ENCOUNTER 2018-10-13 12:30 | Outpatient (RCR) | payer MEDICARE, OTHER ==
[2018-10-19] MEDS ORDERED: INSU100I32 SQ (11:33)
[2018-10-27] MEDS ORDERED: METF-399 PO (13:19)
[2018-10-27] MEDS ORDERED: INSU100I32 SQ (13:19)
[2018-10-27] MEDS ORDERED: PANT40TA3 PO (13:19)
[2018-10-27] MEDS ORDERED: ASPI-586 PO (13:19)
[2018-10-27] MEDS ORDERED: INSU100I14 SQ (13:21)
[2018-10-31] MEDS ORDERED: SUCR1TAB36 PO (13:25)
== END 2018-12-28 | disposition home or self-care (01) ==
LOC: CR 12:30
PROVIDERS: ATTEND Internal Medicine Cardiovascular Disease
DX: Z48.812 Encounter for surgical aftercare following surgery on the circulatory system (principal); Z95.1 Presence of aortocoronary bypass graft
CPT/HCPCS: 93798

== ENCOUNTER 2018-10-18 18:09 | Inpatient (IN) | payer MEDICARE, OTHER ==
[~2018-10-18] VITALS: Ht 170.2 cm; Wt 74.8 kg
[2018-10-18] MEDS ORDERED: NS IV 1000 ML 1,000 ML IV ONE ×2 (18:42→20:22)
[2018-10-18] MEDS ORDERED: NS IV 1000 ML 1,000 ML ONE ×2 (18:43→22:58)
--- OUTSIDE RECORDS SUMMARY | 2018-10-18 18:43 | XMS REPORT | Continuity of Care Document ---
Author Author [facility] Organization [facility] Address Unknown Phone Unavailable Allergies Active Description Code Type Severity Reaction Onset Reported/Identified Relationship to Patient Clinical Status Yes No Allergy Information Available [id number] Drug Allergy Unknown N/A 2015 Yes latex [id number] Drug Allergy Unknown HIVES 10/04/2017 Yes nickel [id number] Drug Allergy Unknown HIVES 10/04/2017 Medications There is no data. 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 10/17/1355 VIJAY ATKINS Ot I73.9 PERIPHERAL VASCULAR DISEASE, UNSPECIFIED 10/17/1355 VIJAY ATKINS Ot R42 DIZZINESS AND GIDDINESS 10/17/1355 VIJAY ATKINS Ot Z79.4 WIRE WORKER (CURRENT) USE OF INSULIN 10/17/1355 VIJAY ATKINS Ot Z79.899 OTHER NURSING HOME (CURRENT) DRUG THERAPY 10/17/1355 VIJAY ATKINS Ot Z95.1 PRESENCE OF AORTOCORONARY BYPASS GRAFT 10/17/1355 VIJAY ATKINS Ot Z95.820 PERIPHERAL VASCULAR ANGIOPLASTY STATUS W 02/14/2016 Ot 397.0 02/14/2016 Ot 401.9 02/14/2016 Ot 414.00 02/14/2016 Ot 424.0 02/14/2016 Ot 401.9 02/14/2016 Ot 414.00 02/14/2016 Ot 397.0 02/14/2016 Ot 414.00 02/14/2016 Ot 424.0 02/14/2016 Ot 428.0 02/14/2016 Ot 786.50 02/14/2016 Ot 793.2 02/14/2016 GERSON BARKER, PHYLLIS J Ot I65.23 02/21/2016 Ot 397.0 02/21/2016 Ot 401.9 02/21/2016 Ot 414.00 02/21/2016 Ot 424.0 02/21/2016 Ot 401.9 02/21/2016 Ot 414.00 02/21/2016 Ot 397.0 02/21/2016 Ot 414.00 02/21/2016 Ot 424.0 02/21/2016 Ot 428.0 02/21/2016 Ot 786.50 02/21/2016 Ot 793.2 02/22/2016 ESTHER-VANDANA PA, PRAVEEN K Ot E11.9 02/22/2016 SANTANA-VANDANA PA, PRAVEEN K Ot E78.2 02/22/2016 SANTANA-VANDANA PA, PRAVEEN K Ot I10 02/22/2016 SANTANA-VANDANA PA, PRAVEEN K Ot I25.10 02/23/2016 SANTANA-VANDANA PA, PRAVEEN K Ot E11.9 02/23/2016 SANTANA-VANDANA PA, PRAVEEN K Ot E78.2 02/23/2016 SANTANA-VANDANA PA, PRAVEEN K Ot I10 02/23/2016 SANTANA-VANDANA PA, PRAVEEN K Ot I25.10 02/27/2016 SANTANA-VANDANA PA, PRAVEEN K Ot E11.9 02/27/2016 SANTANA-VANDANA PA, PRAVEEN K Ot E78.2 02/27/2016 SANTANA-VANDANA PA, PRAVEEN K Ot I10 02/27/2016 SANTANA-VANDANA PA, PRAVEEN K Ot I25.10 02/28/2016 SANTANA-VANDANA PA, PRAVEEN K Ot E11.9 02/28/2016 SANTANA-VANDANA PA, PRAVEEN K Ot E78.2 02/28/2016 SANTANA-VANDANA PA, PRAVEEN K Ot I10 02/28/2016 SANTANA-VANDANA PA, PRAVEEN K Ot I25.10 02/29/2016 GERSON BARKER, PHYLLIS Morales Ot I65.23 03/04/2016 PRAVEEN VILLAVICENCIO Ot E11.9 TYPE 2 DIABETES MELLITUS WITHOUT COMPLIC 03/04/2016 PRAVEEN VILLAVICENCIO Ot E78.2 MIXED HYPERLIPIDEMIA 03/04/2016 PRAVEEN VILLAVICENCIO Ot I10 ESSENTIAL (PRIMARY) HYPERTENSION 03/04/2016 PRAVEEN VILLAVICENCIO Ot 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 03/07/2016 PRAVEEN VILLAVICENCIO Ot E11.9 TYPE 2 DIABETES MELLITUS WITHOUT COMPLIC 03/07/2016 PRAVEEN VILLAVICENCIO Ot E78.2 MIXED HYPERLIPIDEMIA 03/07/2016 PRAVEEN VILLAVICENCIO Ot I10 ESSENTIAL (PRIMARY) HYPERTENSION 03/07/2016 PRAVEEN VILLAVICENCIO Ot 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 03/15/2016 PRAVEEN VILLAVICENCIO Ot E11.9 TYPE 2 DIABETES MELLITUS WITHOUT COMPLIC 03/15/2016 PRAVEEN VILLAVICENCIO Ot E78.2 MIXED HYPERLIPIDEMIA 03/15/2016 PRAVEEN VILLAVICENCIO Ot I10 ESSENTIAL (PRIMARY) HYPERTENSION 03/15/2016 PRAVEEN VILLAVICENCIO Ot 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 08/06/2017 Ot 397.0 TRICUSPID VALVE DISEASE [...] VILLAVICENCIO Ot 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 09/04/2017 UDAY SALAZAR MD R Ot R10.12 LEFT UPPER QUADRANT PAIN 09/04/2017 UDAY SALAZAR MD R Ot R93.8 ABNORMAL FINDINGS ON DIAGNOSTIC IMAGING 09/06/2017 UDAY SALAZAR MD R Ot 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 09/06/2017 UDAY SALAZAR MD R Ot R16.0 HEPATOMEGALY, NOT ELSEWHERE CLASSIFIED 09/11/2017 UDAY SALAZAR MD R Ot R10.12 LEFT UPPER QUADRANT PAIN 09/11/2017 UDAY SALAZAR MD R Ot R93.8 ABNORMAL FINDINGS ON DIAGNOSTIC IMAGING 09/12/2017 OLIVIA SORENSON MD, Ot Z01.818 ENCOUNTER FOR OTHER PREPROCEDURAL EXAMIN 09/12/2017 OLIVIA SORENSON MD, Ot Z80.0 FAMILY HISTORY OF MALIGNANT NEOPLASM OF 09/12/2017 OLIVIA SORENSON MD, Ot Z86.010 PERSONAL HISTORY OF COLONIC POLYPS 09/12/2017 OLIVIA SORENSON MD, Ot Z01.818 ENCOUNTER FOR OTHER PREPROCEDURAL EXAMIN 09/12/2017 OLIVIA SORENSON MD, Ot Z80.0 FAMILY HISTORY OF MALIGNANT NEOPLASM OF 09/12/2017 OLIVIA SORENSON MD, Ot Z86.010 PERSONAL HISTORY OF COLONIC POLYPS 09/18/2017 OLIVIA SORENSON MD, Ot D12.2 BENIGN NEOPLASM OF ASCENDING COLON 09/18/2017 OLIVIA SORENSON MD, Ot D12.3 BENIGN NEOPLASM OF TRANSVERSE COLON 09/18/2017 OLIVIA SORENSON MD Ot E11.42 TYPE 2 DIABETES MELLITUS WITH DIABETIC P 09/18/2017 OLIVIA SORENSON MD, Ot 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 09/18/2017 OLIVIA SORENSON MD, Ot K57.30 DVRTCLOS OF LG INT W/O PERFORATION OR AB 09/18/2017 OLIVIA SORENSON MD, Ot K64.1 SECOND DEGREE HEMORRHOIDS 09/18/2017 OLIVIA SORENSON MD, Ot Z12.11 ENCOUNTER FOR SCREENING FOR MALIGNANT NE 09/18/2017 OLIVIA SORENSON MD, Ot Z79.84 NURSING HOME (CURRENT) USE OF ORAL HYPOGLYC 09/18/2017 OLIVIA SORENSON MD, Ot Z79.899 OTHER NURSING HOME (CURRENT) DRUG THERAPY 09/18/2017 OLIVIA SORENSON MD, Ot Z80.0 FAMILY HISTORY OF MALIGNANT NEOPLASM OF 09/18/2017 OLIVIA SORENSON MD, Ot Z86.010 PERSONAL HISTORY OF COLONIC POLYPS 09/18/2017 OLIVIA SORENSON MD, Ot Z86.73 PRSNL HX OF TIA (TIA), AND CEREB INFRC W 09/20/2017 OLIVIA SORENSON MD, Ot D12.2 BENIGN NEOPLASM OF ASCENDING COLON 09/20/2017 OLIVIA SORENSON MD, Ot D12.3 BENIGN NEOPLASM OF TRANSVERSE COLON 09/20/2017 OLIVIA SORENSON MD, Ot E11.42 TYPE 2 DIABETES MELLITUS WITH DIABETIC P 09/20/2017 OLIVIA SORENSON MD, Ot 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 09/20/2017 OLIVIA SORENSON MD, Ot K57.30 DVRTCLOS OF LG INT W/O PERFORATION OR AB 09/20/2017 OLIVIA SORENSON MD, Ot K64.1 SECOND DEGREE HEMORRHOIDS 09/20/2017 OLIVIA SORENSON MD, Ot Z12.11 ENCOUNTER FOR SCREENING FOR MALIGNANT NE 09/20/2017 OLIVIA SORENSON MD, Ot Z79.84 NURSING HOME (CURRENT) USE OF ORAL HYPOGLYC 09/20/2017 OLIVIA SORENSON MD, Ot Z79.899 OTHER WIRE WORKER (CURRENT) DRUG THERAPY 09/20/2017 OLIVIA SORENSON MD, Ot Z80.0 FAMILY HISTORY OF MALIGNANT NEOPLASM OF 09/20/2017 OLIVIA SORENSON MD, Ot Z86.010 PERSONAL HISTORY OF COLONIC POLYPS 09/20/2017 OLIVIA SORENSON MD, Ot Z86.73 PRSNL HX OF TIA (TIA), AND CEREB INFRC W 10/04/2017 JOHN CRUZ DO S Ot R93.8 ABNORMAL FINDINGS ON DIAGNOSTIC IMAGING 10/04/2017 JOHN CRUZ DO S Ot Z01.818 ENCOUNTER FOR OTHER PREPROCEDURAL EXAMIN 10/07/2017 JOHN CRUZ DO S Ot R93.8 ABNORMAL FINDINGS ON DIAGNOSTIC IMAGING 10/07/2017 JOHN CRUZ DO S Ot Z01.818 ENCOUNTER FOR OTHER PREPROCEDURAL EXAMIN 10/11/2017 UDAY SALAZAR MD Ot 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 10/11/2017 UDAY SALAZAR MD Ot R16.0 HEPATOMEGALY, NOT ELSEWHERE CLASSIFIED 10/11/2017 JOHN CRUZ DO Ot E11.9 TYPE 2 DIABETES MELLITUS WITHOUT COMPLIC 10/11/2017 JOHN CRUZ DO Ot E78.5 HYPERLIPIDEMIA, UNSPECIFIED 10/11/2017 JOHN CRUZ DO Ot F17.210 NICOTINE DEPENDENCE, CIGARETTES, UNCOMPL 10/11/2017 JOHN CRUZ DO Ot G47.33 OBSTRUCTIVE SLEEP APNEA (ADULT) (PEDIATR 10/11/2017 JOHN CRUZ DO Ot 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 10/11/2017 JOHN CRUZ DO S Ot I10 ESSENTIAL (PRIMARY) HYPERTENSION 10/11/2017 JOHN CRUZ DO Ot 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 10/11/2017 JOHN CRUZ DO Ot N81.10 CYSTOCELE, UNSPECIFIED 10/11/2017 JOHN CRUZ DO Ot N81.6 RECTOCELE 10/11/2017 JOHN CRUZ DO Ot R93.8 ABNORMAL FINDINGS ON DIAGNOSTIC IMAGING 10/11/2017 JOHN CRUZ DO Ot Z78.0 ASYMPTOMATIC MENOPAUSAL STATE 10/11/2017 JOHN CRUZ DO Ot Z79.02 NURSING HOME (CURRENT) USE OF ANTITHROMBOTI 10/11/2017 JOHN CRUZ DO Ot Z79.4 WIRE WORKER (CURRENT) USE OF INSULIN 10/11/2017 JOHN CRUZ DO Ot Z79.899 OTHER NURSING HOME (CURRENT) DRUG THERAPY 10/11/2017 JOHN CRUZ DO Ot Z86.73 PRSNL HX OF TIA (TIA), AND CEREB INFRC W 10/30/2017 JOHN CRUZ DO Ot E11.9 TYPE 2 DIABETES MELLITUS WITHOUT COMPLIC 10/30/2017 JOHN CRUZ DO Ot E78.5 HYPERLIPIDEMIA, UNSPECIFIED 10/30/2017 JOHN CRUZ DO Ot F17.210 NICOTINE DEPENDENCE, CIGARETTES, UNCOMPL 10/30/2017 JOHN CRUZ DO Ot G47.33 OBSTRUCTIVE SLEEP APNEA (ADULT) (PEDIATR 10/30/2017 JOHN CRUZ DO S Ot 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 10/30/2017 JOHN CRUZ DO S Ot I10 ESSENTIAL (PRIMARY) HYPERTENSION 10/30/2017 JOHN CRUZ DO S Ot 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 10/30/2017 NANCY RODRIGUEZ JOHN Carpenter Ot N81.10 CYSTOCELE, UNSPECIFIED 10/30/2017 NANCY RODRIGUEZ JOHN Pauline Ot N81.6 RECTOCELE 10/30/2017 NANCY RODRIGUEZ JOHN Carpenter Ot R93.8 ABNORMAL FINDINGS ON DIAGNOSTIC IMAGING 10/30/2017 NANCY RODRIGUEZ JOHN Carpenter Ot Z78.0 ASYMPTOMATIC MENOPAUSAL STATE 10/30/2017 NANCY RODRIGUEZ JOHN Carpenter Ot Z79.02 NURSING HOME (CURRENT) USE OF ANTITHROMBOTI 10/30/2017 NANCY RODRIGUEZ JOHN Pauline Ot Z79.4 WIRE WORKER (CURRENT) USE OF INSULIN 10/30/2017 NANCY RODRIGUEZ JOHN Carpenter Ot Z79.899 OTHER NURSING HOME (CURRENT) DRUG THERAPY 10/30/2017 NANCY RODRIGUEZ JOHN Carpenter Ot Z86.73 PRSNL HX OF TIA (TIA), AND CEREB INFRC W 02/13/2018 UDAY SALAZAR MD Ot 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 02/13/2018 UDAY SALAZAR MD Ot R16.0 HEPATOMEGALY, NOT ELSEWHERE CLASSIFIED 02/21/2018 PHYLLIS NIETO MD Ot E11.9 TYPE 2 DIABETES MELLITUS WITHOUT COMPLIC 02/21/2018 PHYLLIS NIETO MD Ot E78.5 HYPERLIPIDEMIA, UNSPECIFIED 02/21/2018 PHYLLIS NIETO MD Ot I10 ESSENTIAL (PRIMARY) HYPERTENSION 02/21/2018 PHYLLIS NIETO MD Ot 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 02/21/2018 PHYLLIS NIETO MD Ot Z72.0 TOBACCO USE 02/25/2018 PHYLLIS NIETO MD Ot E11.9 TYPE 2 DIABETES MELLITUS WITHOUT COMPLIC 02/25/2018 PHYLLIS NIETO MD Ot E78.5 HYPERLIPIDEMIA, UNSPECIFIED 02/25/2018 PHYLLIS NIETO MD Ot I10 ESSENTIAL (PRIMARY) HYPERTENSION 02/25/2018 PHYLLIS NIETO MD Ot 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 02/25/2018 PHYLLIS NIETO MD Ot Z72.0 TOBACCO USE 03/04/2018 PHYLLIS NIETO MD Ot E11.9 TYPE 2 DIABETES MELLITUS WITHOUT COMPLIC 03/04/2018 PHYLILS NIETO MD Ot E78.5 HYPERLIPIDEMIA, UNSPECIFIED 03/04/2018 PHYLLIS NIETO MD Ot I10 ESSENTIAL (PRIMARY) HYPERTENSION 03/04/2018 PHYLLIS NIETO MD Ot 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 03/04/2018 PHYLLIS NIETO MD Ot Z72.0 TOBACCO USE 03/05/2018 PHYLLIS NIETO MD Ot E11.9 TYPE 2 DIABETES MELLITUS WITHOUT COMPLIC 03/05/2018 PHYLLIS NIETO MD Ot E78.5 HYPERLIPIDEMIA, UNSPECIFIED 03/05/2018 PHYLLIS NIETO MD Ot F17.210 NICOTINE DEPENDENCE, CIGARETTES, UNCOMPL 03/05/2018 PHYLLIS NIETO MD Ot I10 ESSENTIAL (PRIMARY) HYPERTENSION 03/05/2018 PHYLLIS NIETO MD Ot 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 03/05/2018 PHYLLIS NIETO MD Ot I65.23 OCCLUSION AND STENOSIS OF BILATERAL PAINTER 03/05/2018 PHYLLIS NIETO MD Ot I73.9 PERIPHERAL VASCULAR DISEASE, UNSPECIFIED 03/05/2018 PHYLLIS NIETO MD Ot Z86.73 PRSNL HX OF TIA (TIA), AND CEREB INFRC W 03/06/2018 PHYLLIS NIETO MD Ot E11.9 TYPE 2 DIABETES MELLITUS WITHOUT COMPLIC 03/06/2018 PHYLLIS NIETO MD Ot E78.5 HYPERLIPIDEMIA, UNSPECIFIED 03/06/2018 PHYLLIS NIETO MD Ot F17.210 NICOTINE DEPENDENCE, CIGARETTES, UNCOMPL 03/06/2018 PHYLLIS NIETO MD Ot I10 ESSENTIAL (PRIMARY) HYPERTENSION 03/06/2018 PHYLLIS NIETO MD Ot 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 03/06/2018 PHYLLIS NIETO MD Ot I65.23 OCCLUSION AND STENOSIS OF BILATERAL PAINTER 03/06/2018 PHYLLIS NIETO MD Ot I73.9 PERIPHERAL VASCULAR DISEASE, UNSPECIFIED 03/06/2018 PHYLLIS NIETO MD Ot Z86.73 PRSNL HX OF TIA (TIA), AND CEREB INFRC W 04/10/2018 ALAN ROD MD Ot I25.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 04/10/2018 ALAN ROD MD Ot J90 PLEURAL EFFUSION, NOT ELSEWHERE CLASSIFI 04/21/2018 VIOLA BARKER, ALAN Obando I25.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 04/21/2018 VIOLA BARKER, ALAN Obando J90 PLEURAL EFFUSION, NOT ELSEWHERE CLASSIFI 05/01/2018 CRISTELA DO, MIKEY K Ot R42 DIZZINESS AND GIDDINESS 05/01/2018 CRISTELA DO, MIKEY K Ot W19.XXXA UNSPECIFIED FALL, INITIAL ENCOUNTER 05/01/2018 CRISTELA DO, MIKEY K Ot Y92.[address] IN [facility] NON[facility] (PRIVATE 05/05/2018 CRISTELA DO, MIKEY K Ot R42 DIZZINESS AND GIDDINESS 05/05/2018 CRISTELA DO, MIKEY K Ot W19.XXXA UNSPECIFIED FALL, INITIAL ENCOUNTER 05/05/2018 CRISTELA DO, MIKEY K Ot Y92.[address] IN [facility] (PRIVATE 05/13/2018 PHYLLIS NIETO MD Ot E78.5 HYPERLIPIDEMIA, UNSPECIFIED 05/13/2018 PHYLLIS NIETO MD Ot 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AL AND T 05/13/2018 PHYLLIS NIETO MD Ot I10 ESSENTIAL (PRIMARY) HYPERTENSION 05/13/2018 PHYLLIS NIETO MD Ot 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 05/13/2018 PHYLLIS NIETO MD Ot R07.9 CHEST PAIN, UNSPECIFIED 05/13/2018 PHYLLIS NIETO MD Ot Z72.0 TOBACCO USE 05/13/2018 PHYLLIS NITEO MD Ot E78.5 HYPERLIPIDEMIA, UNSPECIFIED 05/13/2018 PHYLLIS NIETO MD Ot 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AL AND T 05/13/2018 PHYLLIS NIETO MD Ot I10 ESSENTIAL (PRIMARY) HYPERTENSION 05/13/2018 PHYLLIS NIETO MD Ot 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 05/13/2018 PHYLLIS NIETO MD Ot R07.9 CHEST PAIN, UNSPECIFIED 05/13/2018 PHYLLIS NIETO MD Ot Z72.0 TOBACCO USE 05/16/2018 PHYLLIS NIETO MD Ot D64.9 ANEMIA, UNSPECIFIED 05/19/2018 PHYLLIS NIETO MD Ot D64.9 ANEMIA, UNSPECIFIED 05/21/2018 PHYLLIS NIETO MD Ot D64.9 ANEMIA, UNSPECIFIED 05/22/2018 PHYLLIS NIETO MD Ot E78.5 HYPERLIPIDEMIA, UNSPECIFIED 05/22/2018 PHYLLIS NIETO MD Ot 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AL AND T 05/22/2018 PHYLLIS NIETO MD Ot I10 ESSENTIAL (PRIMARY) HYPERTENSION 05/22/2018 PHYLLIS NIETO MD Ot 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 05/22/2018 PHYLLIS NIETO MD Ot R07.9 CHEST PAIN, UNSPECIFIED 05/22/2018 PHYLLIS NIETO MD Ot Z72.0 TOBACCO USE 05/28/2018 PHYLLIS NIETO MD Ot D64.9 ANEMIA, UNSPECIFIED 06/02/2018 WILBERTVIJAY PLASCENCIA Ot D64.9 ANEMIA, UNSPECIFIED 06/02/2018 VIJAY ATKINS N Ot 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 AUTONOMIC (PO 06/02/2018 VIJAY ATKINS Ot E78.5 HYPERLIPIDEMIA, UNSPECIFIED 06/02/2018 VIJAY ATKINS Ot F17.210 NICOTINE DEPENDENCE, CIGARETTES, UNCOMPL 06/02/2018 VIJAY ATKINS N Ot I10 ESSENTIAL (PRIMARY) HYPERTENSION 06/02/2018 VIJAY ATKINS Ot 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 06/02/2018 VIJAY ATKINS Ot I73.9 PERIPHERAL VASCULAR DISEASE, UNSPECIFIED 06/02/2018 VIJAY ATKINS N Ot R42 DIZZINESS AND GIDDINESS 06/02/2018 VIJAY ATKINS Ot Z79.4 WIRE WORKER (CURRENT) USE OF INSULIN 06/02/2018 VIJAY ATKINS Ot Z79.899 OTHER NURSING HOME (CURRENT) DRUG THERAPY 06/02/2018 VIJAY ATKINS N Ot Z95.1 PRESENCE OF AORTOCORONARY BYPASS GRAFT 06/02/2018 VIJAY ATKINS Ot Z95.820 PERIPHERAL VASCULAR ANGIOPLASTY STATUS W 06/09/2018 VIJAY ATKINS Ot D64.9 ANEMIA, UNSPECIFIED 06/09/2018 VIJAY ATKINS N Ot 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 AUTONOMIC (PO 06/09/2018 VIJAY ATKINS N Ot E78.5 HYPERLIPIDEMIA, UNSPECIFIED 06/09/2018 VIJAY ATKINS N Ot F17.210 NICOTINE DEPENDENCE, CIGARETTES, UNCOMPL 06/09/2018 VIJAY ATKINS N Ot I10 ESSENTIAL (PRIMARY) HYPERTENSION 06/09/2018 VIJAY ATKINS N Ot 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 06/09/2018 VIJAY ATKINS N Ot I73.9 PERIPHERAL VASCULAR DISEASE, UNSPECIFIED 06/09/2018 WILBERT VIJAY N Ot R42 DIZZINESS AND GIDDINESS 06/09/2018 WILBERTROHINISHREYA N Ot Z79.4 NURSING HOME (CURRENT) USE OF INSULIN 06/09/2018 WILBERT ROHINIAN N Ot Z79.899 OTHER NURSING HOME (CURRENT) DRUG THERAPY 06/09/2018 WILBERT, BOBAN N Ot Z95.1 PRESENCE OF AORTOCORONARY BYPASS GRAFT 06/09/2018 WILBERTVIJAY N Ot Z95.820 PERIPHERAL VASCULAR ANGIOPLASTY STATUS W 07/04/2018 Ot E11.9 TYPE 2 DIABETES MELLITUS WITHOUT COMPLIC 07/04/2018 Ot E78.5 HYPERLIPIDEMIA, UNSPECIFIED 07/04/2018 Ot I10 ESSENTIAL ( PRIMARY) HYPERTENSION 07/04/2018 Ot 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 07/17/2018 VIJAY ATKINS N Ot D64.9 ANEMIA, UNSPECIFIED 07/17/2018 WILBERTVIJAY PLASCENCIA N Ot 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 AUTONOMIC (PO 07/17/2018 VIJAY ATKINS N Ot E78.5 HYPERLIPIDEMIA, UNSPECIFIED 07/17/2018 VIJAY ATKINS N Ot F17.210 NICOTINE DEPENDENCE, CIGARETTES, UNCOMPL 07/17/2018 VIJAY ATKINS N Ot I10 ESSENTIAL (PRIMARY) HYPERTENSION 07/17/2018 VIJAY ATKINS N Ot 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 07/17/2018 VIJAY ATKINS N Ot I73.9 PERIPHERAL VASCULAR DISEASE, UNSPECIFIED 07/17/2018 WILBERTVIJAY N Ot R42 DIZZINESS AND GIDDINESS 07/17/2018 WILBERT BOBAN N Ot Z79.4 WIRE WORKER (CURRENT) USE OF INSULIN 07/17/2018 WILBERTROHINIAN N Ot Z79.899 OTHER WIRE WORKER (CURRENT) DRUG THERAPY 07/17/2018 WILBERT BOBAN N Ot Z95.1 PRESENCE OF AORTOCORONARY BYPASS GRAFT 07/17/2018 WILBERTROHINIAN N Ot Z95.820 PERIPHERAL VASCULAR ANGIOPLASTY STATUS W 07/18/2018 WILBERTROHINIAN N Ot D64.9 ANEMIA, UNSPECIFIED 07/18/2018 WILBERT, BOBAN N Ot 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 AUTONOMIC (PO 07/18/2018 WILBERT, BOBAN N Ot E78.5 HYPERLIPIDEMIA, UNSPECIFIED 07/18/2018 WILBERT, BOBAN N Ot F17.210 NICOTINE DEPENDENCE, CIGARETTES, UNCOMPL 07/18/2018 WILBERT, BOBAN N Ot I10 ESSENTIAL (PRIMARY) HYPERTENSION 07/18/2018 WILBERT, BOBAN N Ot 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 07/18/2018 WILBERT, BOBAN N Ot I73.9 PERIPHERAL VASCULAR DISEASE, UNSPECIFIED 07/18/2018 WILBERT, BOBAN N Ot R42 DIZZINESS AND GIDDINESS 07/18/2018 WILBERT, BOBAN N Ot Z79.4 NURSING HOME (CURRENT) USE OF INSULIN 07/18/2018 WILBERT, BOBAN N Ot Z79.899 OTHER NURSING HOME (CURRENT) DRUG THERAPY 07/18/2018 WILBERT, BOBAN N Ot Z95.1 PRESENCE OF AORTOCORONARY BYPASS GRAFT 07/18/2018 WILBERT, BOBAN N Ot Z95.820 PERIPHERAL VASCULAR ANGIOPLASTY STATUS W 07/18/2018 WILBERT, BOBAN N Ot D64.9 ANEMIA, UNSPECIFIED 07/18/2018 WILBERT, BOBAN N Ot 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 AUTONOMIC (PO 07/18/2018 WILBERT, BOBAN N Ot E78.5 HYPERLIPIDEMIA, UNSPECIFIED 07/18/2018 WILBERT, BOBAN N Ot F17.210 NICOTINE DEPENDENCE, CIGARETTES, UNCOMPL 07/18/2018 WILBERT, BOBAN N Ot I10 ESSENTIAL (PRIMARY) HYPERTENSION 07/18/2018 WILBERT, BOBAN N Ot 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 07/18/2018 WILBERT, BOBAN N Ot I73.9 PERIPHERAL VASCULAR DISEASE, UNSPECIFIED 07/18/2018 WILBERT, BOBAN N Ot R42 DIZZINESS AND GIDDINESS 07/18/2018 WILBERT, BOBAN N Ot Z79.4 NURSING HOME (CURRENT) USE OF INSULIN 07/18/2018 WILBERT, BOBAN N Ot Z79.899 OTHER WIRE WORKER (CURRENT) DRUG THERAPY 07/18/2018 VIJAY ATKINS Derrick Ot Z95.1 PRESENCE OF AORTOCORONARY BYPASS GRAFT 07/18/2018 VIJAY ATKINS Derrick Ot Z95.820 PERIPHERAL VASCULAR ANGIOPLASTY STATUS W 08/14/2018 Ot D50.0 IRON 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 08/14/2018 Ot E11.9 TYPE 2 DIABETES MELLITUS WITHOUT COMPLIC 08/14/2018 Ot E78.5 HYPERLIPIDEMIA, UNSPECIFIED 08/14/2018 Ot I10 ESSENTIAL ( PRIMARY) HYPERTENSION 08/14/2018 Ot 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 08/19/2018 VIJAY ATKINS Derrick Ot D64.9 ANEMIA, UNSPECIFIED 08/19/2018 VIJAY ATKINS Derrick Ot 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 AUTONOMIC (PO 08/19/2018 VIJAY ATKINS Derrick Ot E78.5 HYPERLIPIDEMIA, UNSPECIFIED 08/19/2018 VIJAY ATKINS Derrick Ot F17.210 NICOTINE DEPENDENCE, CIGARETTES, UNCOMPL 08/19/2018 VIJAY ATKINS Derrick Ot I10 ESSENTIAL (PRIMARY) HYPERTENSION 08/19/2018 VIJAY ATKINS Derrick Ot 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 08/19/2018 VIJAY ATKINS Derrick Ot I73.9 PERIPHERAL VASCULAR DISEASE, UNSPECIFIED 08/19/2018 VIJAY ATKINS Derrick Ot R42 DIZZINESS AND GIDDINESS 08/19/2018 VIJAY ATKINS Derrick Ot Z79.4 WIRE WORKER (CURRENT) USE OF INSULIN 08/19/2018 VIJAY ATKINS Derrick Ot Z79.899 OTHER NURSING HOME (CURRENT) DRUG THERAPY 08/19/2018 VIJAY ATKINS Derrick Ot Z95.1 PRESENCE OF AORTOCORONARY BYPASS GRAFT 08/19/2018 VIJAY ATKINS Derrick Ot Z95.820 PERIPHERAL VASCULAR ANGIOPLASTY STATUS W 08/20/2018 Ot D50.0 IRON 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 08/20/2018 Ot D50.0 IRON 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 08/20/2018 Ot E11.9 TYPE 2 DIABETES MELLITUS WITHOUT COMPLIC 08/20/2018 Ot E78.5 HYPERLIPIDEMIA, UNSPECIFIED 08/20/2018 Ot I10 ESSENTIAL ( PRIMARY) HYPERTENSION 08/20/2018 Ot 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 08/28/2018 Ot D50.0 IRON 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 09/29/2018 MARTIN BARKER, UDAY Brown Ot 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 09/29/2018 UDAY SALAZAR MD Ot R16.0 HEPATOMEGALY, NOT ELSEWHERE CLASSIFIED 09/29/2018 PHYLLIS NIETO MD Ot E11.9 TYPE 2 DIABETES MELLITUS WITHOUT COMPLIC 09/29/2018 PHYLLIS NIETO MD Ot E78.5 HYPERLIPIDEMIA, UNSPECIFIED 09/29/2018 PHYLLIS NIETO MD Ot I10 ESSENTIAL (PRIMARY) HYPERTENSION 09/29/2018 PHYLLIS NIETO MD Ot 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 09/29/2018 PHYLLIS NIETO MD Ot Z72.0 TOBACCO USE 09/29/2018 ALAN ROD MD, Ot I25.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 09/29/2018 ALAN ROD MD, Ot J90 PLEURAL EFFUSION, NOT ELSEWHERE CLASSIFI 09/29/2018 PHYLLIS NIETO MD, Ot E78.5 HYPERLIPIDEMIA, UNSPECIFIED 09/29/2018 PHYLLIS NIETO MD Ot 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AL AND T 09/29/2018 PHYLLIS NIETO MD Ot I10 ESSENTIAL (PRIMARY) HYPERTENSION 09/29/2018 PHYLLIS NIETO MD Ot 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 09/29/2018 PHYLLIS NIETO MD Ot R07.9 CHEST PAIN, UNSPECIFIED 09/29/2018 PHYLLIS NIETO MD Ot Z72.0 TOBACCO USE 09/29/2018 PHYLLIS NIETO MD Ot D64.9 ANEMIA, UNSPECIFIED 09/29/2018 Ot D50.0 IRON 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 09/29/2018 Ot E11.9 TYPE 2 DIABETES MELLITUS WITHOUT COMPLIC 09/29/2018 Ot E78.5 HYPERLIPIDEMIA, UNSPECIFIED 09/29/2018 Ot I10 ESSENTIAL ( PRIMARY) HYPERTENSION 09/29/2018 Ot 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 09/29/2018 VIJAY ATKINS Ot D64.9 ANEMIA, UNSPECIFIED 09/29/2018 VIJAY ATKINS Ot 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 AUTONOMIC (PO 09/29/2018 VIJAY ATKINS Ot E78.5 HYPERLIPIDEMIA, UNSPECIFIED 09/29/2018 VIJAY ATKINS Ot F17.210 NICOTINE DEPENDENCE, CIGARETTES, UNCOMPL 09/29/2018 VIJAY ATKINS Ot I10 ESSENTIAL (PRIMARY) HYPERTENSION 09/29/2018 VIJAY ATKINS Ot 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 Results Test Result Range Complete blood count (CBC) with automated white blood cell (WBC) differential - 10/04/17 09:35 Blood leukocytes automated count (number/volume) 9.9 10*3/uL 4.3-11.0 Blood erythrocytes automated count (number/volume) 4.79 10*6/uL 4.35-5.85 Venous blood hemoglobin measurement (mass/volume) 14.7 g/dL 11.5-16.0 Blood hematocrit (volume fraction) 44 % 35-52 Automated erythrocyte mean corpuscular volume 92 [foz_us] 80-99 Automated erythrocyte mean corpuscular hemoglobin (mass per erythrocyte) 31 pg 25-34 Automated erythrocyte mean corpuscular hemoglobin concentration measurement ( mass/volume) 33 g/dL 32-36 Automated erythrocyte distribution width ratio 13.4 % 10.0-14.5 Automated blood platelet count (count/volume) 175 10*3/uL 130-400 Automated blood platelet mean volume measurement 11.5 [foz_us] 7.4-10.4 Automated blood neutrophils/100 leukocytes 62 % 42-75 Automated blood lymphocytes/100 leukocytes 28 % 12-44 Blood monocytes/100 leukocytes 9 % 0-12 Automated blood eosinophils/100 leukocytes 1 % 0-10 Automated blood basophils/100 leukocytes 0 % 0-10 Blood neutrophils automated count (number/volume) 6.1 10*3 1.8-7.8 Blood lymphocytes automated count (number/volume) 2.8 10*3 1.0-4.0 Blood monocytes automated count (number/volume) 0.8 10*3 0.0-1.0 Automated eosinophil count 0.1 10*3/uL 0.0-0.3 Automated blood basophil count (count/volume) 0.0 10*3/uL 0.0-0.1 Blood type T Indirect antibody screen panel - 10/04/17 09:35 ABO+Rh group ABP NRG Blood group antibody screen NEGATIVE NRG Methicillin resistant Staphylococcus aureus (MRSA) screening culture - 09:35 Methicillin resistant Staphylococcus aureus (MRSA) screening culture NEG NRG Blood type T Indirect antibody screen panel - 10/11/17 06:26 ABO+Rh group ABP NRG Transfusion band number [id number] NRG Blood group antibody screen NEGATIVE NRG Capillary blood glucose measurement by glucometer (mass/volume) - 10/11/17 06: 39 Capillary blood glucose measurement by glucometer (mass/volume) 238 mg/dL 70-110 Automated blood complete blood count (hemogram) panel - 03/05/18 07:11 Blood leukocytes automated count (number/volume) 7.7 10*3/uL 4.3-11.0 Blood erythrocytes automated count (number/volume) 4.86 10*6/uL 4.35-5.85 Venous blood hemoglobin measurement (mass/volume) 14.9 g/dL 11.5-16.0 Blood hematocrit (volume fraction) 44 % 35-52 Automated erythrocyte mean corpuscular volume 91 [foz_us] 80-99 Automated erythrocyte mean corpuscular hemoglobin (mass per erythrocyte) 31 pg 25-34 Automated erythrocyte mean corpuscular hemoglobin concentration measurement ( mass/volume) 34 g/dL 32-36 Automated erythrocyte distribution width ratio 13.5 % 10.0-14.5 Automated blood platelet count (count/volume) 162 10*3/uL 130-400 Automated blood platelet mean volume measurement 11.3 [foz_us] 7.4-10.4 PT panel in platelet poor plasma by coagulation assay - 03/05/18 07:11 Prothrombin time (PT) in platelet poor plasma by coagulation assay 14.4 s 12.2-14.7 INR in platelet poor plasma or blood by coagulation assay 1.1 0.8-1.4 Activated partial thromboplastin time (aPTT) in platelet poor plasma bycoagulation assay - 03/05/18 07:11 Activated partial thromboplastin time (aPTT) in platelet poor plasma bycoagulation assay 30 s 24-35 Comprehensive metabolic panel - 03/05/18 07:11 Serum or plasma sodium measurement (moles/volume) 139 mmol/L 135-145 Serum or plasma potassium measurement (moles/volume) 4.2 mmol/L 3.6-5.0 Serum or plasma chloride measurement (moles/volume) 105 mmol/L 98-107 Carbon dioxide 23 mmol/L 21-32 Serum or plasma anion gap determination (moles/volume) 11 mmol/L 5-14 Serum or plasma urea nitrogen measurement (mass/volume) 16 mg/dL 7-18 Serum or plasma creatinine measurement (mass/volume) 0.77 mg/dL 0.60-1.30 Serum or plasma urea nitrogen/creatinine mass ratio 21 NRG Serum or plasma creatinine measurement with calculation of estimated glomerular filtration rate > NRG Serum or plasma glucose measurement (mass/volume) 194 mg/dL 70-105 Serum or plasma calcium measurement (mass/volume) 9.5 mg/dL 8.5-10.1 Serum or plasma total bilirubin measurement (mass/volume) 0.4 mg/dL 0.1-1.0 Serum or plasma alkaline phosphatase measurement (enzymatic activity/volume) 88 U/L 40-136 Serum or plasma aspartate aminotransferase measurement (enzymatic activity/ volume) 44 U/L 5-34 Serum or plasma alanine aminotransferase measurement (enzymatic activity/volume ) 29 U/L 0-55 Serum or plasma protein measurement (mass/volume) 7.6 g/dL 6.4-8.2 Serum or plasma albumin measurement (mass/volume) 4.2 g/dL 3.2-4.5 Lipid 1996 panel - 03/05/18 07:11 Serum or plasma triglyceride measurement (mass/volume) 134 mg/dL <150 Serum or plasma cholesterol measurement (mass/volume) 132 mg/dL < 200 Serum or plasma cholesterol in HDL measurement (mass/volume) 36 mg/ dL 40-60 Cholesterol in LDL [mass/volume] in serum or plasma by direct assay 70 mg/dL 1-129 Serum or plasma cholesterol in VLDL measurement (mass/volume) 27 mg/ dL 5-40 Methicillin resistant Staphylococcus aureus (MRSA) screening culture - 07:11 Methicillin resistant Staphylococcus aureus (MRSA) screening culture NEG NRG Complete blood count (CBC) with automated white blood cell (WBC) differential - 05/08/18 15:57 Blood leukocytes automated count (number/volume) 6.9 10*3/uL 4.3-11.0 Blood erythrocytes automated count (number/volume) 3.04 10*6/uL 4.35-5.85 Venous blood hemoglobin measurement (mass/volume) 7.8 g/dL 11.5-16.0 Blood hematocrit (volume fraction) 27 % 35-52 Automated erythrocyte mean corpuscular volume 87 [foz_us] 80-99 Automated erythrocyte mean corpuscular hemoglobin (mass per erythrocyte) 26 pg 25-34 Automated erythrocyte mean corpuscular hemoglobin concentration measurement ( mass/volume) 29 g/dL 32-36 Automated erythrocyte distribution width ratio 15.0 % 10.0-14.5 Automated blood platelet count (count/volume) 247 10*3/uL 130-400 Automated blood platelet mean volume measurement 9.9 [foz_us] 7.4-10.4 Automated blood neutrophils/100 leukocytes 59 % 42-75 Automated blood lymphocytes/100 leukocytes 29 % 12-44 Blood monocytes/100 leukocytes 10 % 0-12 Automated blood eosinophils/100 leukocytes 2 % 0-10 Automated blood basophils/100 leukocytes 0 % 0-10 Blood neutrophils automated count (number/volume) 4.1 10*3 1.8-7.8 Blood lymphocytes automated count (number/volume) 2.0 10*3 1.0-4.0 Blood monocytes automated count (number/volume) 0.7 10*3 0.0-1.0 Automated eosinophil count 0.1 10*3/uL 0.0-0.3 Automated blood basophil count (count/volume) 0.0 10*3/uL 0.0-0.1 Comprehensive metabolic panel - 05/08/18 15:57 Serum or plasma sodium measurement (moles/volume) 140 mmol/L 135-145 Serum or plasma potassium measurement (moles/volume) 3.8 mmol/L 3.6-5.0 Serum or plasma chloride measurement (moles/volume) 106 mmol/L 98-107 Carbon dioxide 22 mmol/L 21-32 Serum or plasma anion gap determination (moles/volume) 12 mmol/L 5-14 Serum or plasma urea nitrogen measurement (mass/volume) 15 mg/dL 7-18 Serum or plasma creatinine measurement (mass/volume) 0.71 mg/dL 0.60-1.30 Serum or plasma urea nitrogen/creatinine mass ratio 21 NRG Serum or plasma creatinine measurement with calculation of estimated glomerular filtration rate > NRG Serum or plasma glucose measurement (mass/volume) 123 mg/dL 70-105 Serum or plasma calcium measurement (mass/volume) 9.5 mg/dL 8.5-10.1 Serum or plasma total bilirubin measurement (mass/volume) 0.3 mg/dL 0.1-1.0 Serum or plasma alkaline phosphatase measurement (enzymatic activity/volume) 90 U/L 40-136 Serum or plasma aspartate aminotransferase measurement (enzymatic activity/ volume) 36 U/L 5-34 Serum or plasma alanine aminotransferase measurement (enzymatic activity/volume ) 29 U/L 0-55 Serum or plasma protein measurement (mass/volume) 7.3 g/dL 6.4-8.2 Serum or plasma albumin measurement (mass/volume) 4.1 g/dL 3.2-4.5 Complete blood count (CBC) with automated white blood cell (WBC) differential - 05/15/18 17:15 Blood leukocytes automated count (number/volume) 8.2 10*3/uL 4.3-11.0 Blood erythrocytes automated count (number/volume) 3.94 10*6/uL 4.35-5.85 Venous blood hemoglobin measurement (mass/volume) 10.2 g/dL 11.5-16.0 Blood hematocrit (volume fraction) 34 % 35-52 Automated erythrocyte mean corpuscular volume 86 [foz_us] 80-99 Automated erythrocyte mean corpuscular hemoglobin (mass per erythrocyte) 26 pg 25-34 Automated erythrocyte mean corpuscular hemoglobin concentration measurement ( mass/volume) 30 g/dL 32-36 Automated erythrocyte distribution width ratio 16.5 % 10.0-14.5 Automated blood platelet count (count/volume) 229 10*3/uL 130-400 Automated blood platelet mean volume measurement 10.1 [foz_us] 7.4-10.4 Automated blood neutrophils/100 leukocytes 58 % 42-75 Automated blood lymphocytes/100 leukocytes 31 % 12-44 Blood monocytes/100 leukocytes 9 % 0-12 Automated blood eosinophils/100 leukocytes 2 % 0-10 Automated blood basophils/100 leukocytes 0 % 0-10 Blood neutrophils automated count (number/volume) 4.7 10*3 1.8-7.8 Blood lymphocytes automated count (number/volume) 2.6 10*3 1.0-4.0 Blood monocytes automated count (number/volume) 0.8 10*3 0.0-1.0 Automated eosinophil count 0.1 10*3/uL 0.0-0.3 Automated blood basophil count (count/volume) 0.0 10*3/uL 0.0-0.1 Encounters ACCT No. Visit Date/Time Discharge Status Pt. Type Provider Facility Loc./Unit Complaint [id number] 10/06/2018 09:42:00 10/06/2018 23:59:59 CLS Outpatient PHYLLIS NIETO MD [facility] CR STATUS POST ACB [id number] 08/18/2018 00:58:00 08/18/2018 23:59:59 CLS Preadmit VIJAY ATKINS [facility] ONC [id number] 07/17/2018 13:58:00 07/18/2018 00:01:00 DIS Outpatient VIJAY ATKINS [facility] ONC [id number] 06/17/2018 14:41:00 07/17/2018 13:56:00 DIS Outpatient VIJAY ATKINS [facility] ONC [id number] 05/15/2018 17:05:00 05/15/2018 23:59:59 CLS Outpatient PHYLLIS NIETO MD [facility] LAB ANEMIA [id number] 05/08/2018 15:17:00 05/08/2018 23:59:59 CLS Outpatient PHYLLIS NIETO MD [facility] CARD CAD,CHEST PAIN,HTN, DIZZINESS [id number] 05/01/2018 17:04:00 05/01/2018 18:04:00 DIS Emergency MIKEY ARCHIBALD DO [facility] ER DIZZINESS;FALL AT HOME [id number] 04/09/2018 12:51:00 04/09/2018 23:59:59 CLS Outpatient ALAN ROD MD [facility] RAD I25.810 [id number] 03/05/2018 06:49:00 03/05/2018 13:00:00 DIS Outpatient PHYLLIS NIETO MD [facility] CATH ABN STRESS TEST,CAD,HTN [id number] 02/19/2018 07:43:00 02/19/2018 23:59:59 CLS Outpatient PHYLLIS NIETO MD [facility] CARD CAD [id number] 10/11/2017 06:09:00 10/11/2017 09:40:00 DIS Outpatient JOHN CRUZ DO [facility] SDC THICKENED ENDOMETRIUM [id number] 10/04/2017 09:10:00 10/04/2017 10:03:00 DIS Outpatient JOHN CRUZ DO [facility] PREOP THICKENED ENDOMETRIUM [id number] 09/18/2017 09:25:00 09/18/2017 12:10:00 DIS Outpatient OLIVIA SORENSON MD [facility] ENDO FAM HX COLON CA, HX POLYPS [id number] 09/12/2017 14:30:00 09/12/2017 14:54:00 DIS Outpatient OLIVIA SORENSON MD [facility] PREOP COLO [id number] 08/29/2017 14:52:00 08/29/2017 23:59:59 CLS Outpatient UDAY SALAZAR MD [facility] RAD ABDOMINAL PAIN LUQ R10.12 [id number] 08/26/2017 06:43:00 08/26/2017 23:59:59 CLS Outpatient UDAY SALAZAR MD [facility] RAD ABDOMINAL PAIN LEFT UPPER QUADRANT [id number] 08/08/2017 15:15:00 08/08/2017 23:59:59 CLS Preadmit UDAY SALAZAR MD [facility] RAD LUQ ABD PAIN [id number] 02/27/2016 07:08:00 02/27/2016 23:59:59 CLS Outpatient PRAVEEN VILLAVICENCIO [facility] CARD [id number] 02/21/2016 14:51:00 02/21/2016 23:59:59 CLS Outpatient BERNABE ROLDAN, PRAVEEN Bernal [facility] CARD CAD,HTN,HLP , NIDDM [id number] 02/14/2016 13:02:00 02/14/2016 23:59:59 CLS Outpatient GERSON BARKER, PHYLLIS Morales [facility] RAD [id number] 06/24/2018 11:37:00 Document Registration [id number] 06/24/2018 11:32:00 Document Registration [id number] 02/21/2016 14:51:00 Document Registration [id number] 02/25/2013 10:45:00 Document Registration [id number] 08/13/2011 07:02:00 Document Registration [id number] 08/10/2011 08:28:00 Document Registration
--- NOTE | 2018-10-18 18:48 | ED General ---
General Stated Complaint: POSS GI BLEED/PASSED OUT/WEAKNESS Source of Information: Patient, Family (DAUGHTER) History of Present Illness Date Seen by Provider: Oct 18, 2018 Time Seen by Provider: 18:45 Initial Comments PT ARRIVES VIA POV FROM HOME MULTIPLE COMPLAINTS PT HAS HISTORY OF ANEMIA AND HAS SUSPECTED CHRONIC GI BLEEDING, IS FOLLOWED BY DR. ATKINS AND HAS BEEN GETTING IRON INFUSIONS, B12 SHOTS, AND HAS HAD 2 TRANSFUSIONS IN THE LAST FEW MONTHS. STATES SHE LAST HAD AN IRON INFUSION AND B12 SHOT 2 DAYS AGO STATES SHE FEELS BETTER AFTER TRANSFUSIONS, BUT THEN SYMPTOMS GRADUALLY RETURN STATES SHE FEELS VERY TIRED, WORN OUT AND NO ENERGY AT ALL. BASICALLY LAYS IN BED OR ON COUCH ALL DAY PT HAD CABG IN MARCH, WITH BILATERAL LEG STENTS. REPORTEDLY 'HAD A HARD TIME GETTING HER HEART IN RHYTHM" AFTERWARD ANEMIA WAS NOTED POST OP HAS BEEN OFF ANTICOAGULANTS FOR 3 MONTHS DUE TO ANEMIA AND SUSPECTED GI BLEEDING. CURRENTLY IS STILL TAKING ASPIRIN. YESTERDAY, PT HAD SYNCOPAL EPISODE AND HIT HER HEAD, THEN SLEPT FOR 18-20 HOURS AFTERWARD--DID NOT SEEK CARE AT THAT TIME PT STATES SHE GETS DIZZY WHEN SHE STANDS UP AND FREQUENTLY SHE WILL START GO GET DIZZY, AND THEN SHE WILL LAY HER HEAD DOWN ON THE TABLE AND THEN SHE WILL FEEL BETTER AFTER AWHILE CAN ONLY WALK 3-4 STEPS WITHOUT GETTING SHORT OF BREATH, AND VERY DIZZY. HAS TO STOP AND LAY HER HEAD DOWN BEFORE SHE PASSES OUT. HAS TO STOP MULTIPLE TIMES WHILE GETTING DRESSED BECAUSE OF THESE SYMPTOMS WELL HAS PASSED OUT A FEW TIMES, BUT HAD NOT INJURED HERSELF UNTIL YESTERDAY. CHECKED BP PRIOR TO ARRIVAL AND WAS IN 60'S SYSTOLIC. STATES "MY BLOOD PRESSURE BOTTOMS OUT ANY TIME I GET UP" DENIES ANY CHANGES IN HER MEDICATIONS C/O SLIGHT HEADACHE TO RIGHT FOREHEAD AFTER HITTING HER HEAD YESTERDAY NO VISION CHANGES C/O NECK PAIN --HAS CHRONIC NECK PAIN AND IS NO DIFFERENT THAN NORMAL. NO CHEST PAIN NO NAUSEA/VOMITING NO ABDOMINAL PAIN NO SWEATS HAS HAD SOME BLACK/TARRY STOOLS, BUT HAS BEEN ON IRON PILLS AND IRON INFUSIONS. QUIT TAKING IRON PILLS 3 MONTHS AGO, AND STOOLS STARTING TO APPEAR MORE NORMAL LATELY.. HAS AN APPOINTMENT NEXT WEEK WITH DR. SORENSON--SUPPOSED TO DISCUSS GETTING EGD/ COLONOSCOPY OR OTHER OUTPATIENT TESTS. PCP: DR. SALAZAR HEMATOLOGY: DR. ATKINS HOGSHEAD HAND : DR NIETO CV SURGEON: DR. RDO. Allergies and Home Medications Allergies Coded Allergies: latex (Verified Allergy, Unknown, HIVES, 10/04/17) nickel (Verified Allergy, Unknown, HIVES, 10/04/17) Home Medications Carvedilol 12.5 Mg Tablet, 12.5 MG PO BID, (Reported) Cholecalciferol (Vitamin D3) 2,000 Unit Capsule, 2,000 UNIT PO DAILY, (Reported) Clopidogrel Bisulfate 75 Mg Tablet, 75 MG PO DAILY, (Reported) Dulaglutide 1.5 Mg/0.5 Ml Pen.injctr, 1.5 MG SQ WEEK, (Reported) Duloxetine HCl 60 Mg Capsule.dr, 60 MG PO DAILY, (Reported) Glipizide 10 Mg Tablet, 10 MG PO DAILY, (Reported) Lisinopril 5 Mg Tablet, 5 MG PO DAILY, (Reported) [place]-3 Fatty Acids/Fish Oil 1 Each Capsule.dr, 1 EACH PO DAILY, (Reported) Rosuvastatin Calcium 40 Mg Tablet, 40 MG PO DAILY, (Reported) Spironolactone 25 Mg Tablet, 25 MG PO BID, (Reported) Patient Home Medication List Home Medication List Reviewed: Yes Review of Systems Review of Systems Constitutional: see HPI, dizziness, malaise, weakness EENTM: no symptoms reported Respiratory: see HPI, dyspnea on exertion; No orthopnea Cardiovascular: see HPI; No chest pain, No edema; Hx of Intervention; No palpitations; syncope, vascular heart diseas Gastrointestinal: no symptoms reported; No abdominal pain, No constipation, No diarrhea, No nausea, No vomiting Genitourinary: no symptoms reported Musculoskeletal: see HPI, neck pain Skin: no symptoms reported Psychiatric/Neurological: See HPI, Headache; Denies Numbness, Denies Paresthesia, Denies Seizure, Denies Tingling, Denies Tremors Hematologic/Lymphatic: See HPI, Anemia Immunological/Allergic: no symptoms reported Past Ftyaigp-Javfyd-Axfshk Hx Patient Social History Alcohol Use: Occasionally Uses Recreational Drug Use: No Smoking Status: Current Everyday Smoker (1 PPD) Type Used: Cigarettes (1 PPD) Recent Foreign Travel: No Contact w/Someone Who Travel: No Recent Hopitalizations: No Immunizations Up To Date Tetanus Booster (TDap): Unknown Date of Pneumonia Vaccine: Jul 27, 2015 Date of Influenza Vaccine: Aug 27, 2017 Seasonal Allergies Seasonal Allergies: No Past Medical History Surgeries: Yes (CARDIAC CATHS; CABG AND BILATERAL LEG STENTS 03/2018; COLONOSCOPIES/POLYPECTOMIES--LAST ONE IN 2016. 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 Sexually Transmitted Disease: No HIV/AIDS: No Gastrointestinal: Yes Diverticulosis, Polyps Musculoskeletal: Yes (CHRONIC NECK PAIN ) Degenerate Disk Disease, Arthritis, Chronic Back Pain Endocrine: Yes Diabetes, Non-Insulin dep HEENT: No Loss of Vision: Bilateral Hearing Impairment: Denies Cancer: No Skin Did You Recieve Any Treatments: No Psychosocial: No Integumentary: No Blood Disorders: Yes (ANEMIA) Adverse Reaction/Blood Tranf: No (N/A) Physical Exam Vital Signs Vital Signs - First Documented 10/18/18 10/18/18 18:26 22:03 Temp 96.9 Pulse 108 Resp 20 B/P (MAP) 99/53 (68) Pulse Ox 95 O2 Delivery Nasal Cannula O2 Flow Rate 2.00 Capillary Refill : Height, Weight, BMI Height: 5'7.00" Weight: 170lbs. 1.0oz. 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 Norm as Tested Skin: Warm/Dry, Pallor Progress/Results/Core Measures Suspected Sepsis SIRS Temperature: Pulse: Respiratory Rate: Laboratory Tests 10/18/18 18:35: White Blood Count 9.3 10/19/18 05:21: White Blood Count 8.5 Blood Pressure / Mean: Laboratory Tests 10/18/18 18:35: Creatinine 1.33H, INR Comment 1.2, Platelet Count 216, Total Bilirubin 0.5 10/19/18 05:21: Creatinine 0.82, Platelet Count 187, Total Bilirubin 0.5 Results/Orders Lab Results Laboratory Tests Test 10/18/18 18:35 10/18/18 20:17 10/19/18 05:21 10/19/18 05:29 Range/Units White Blood Count 9.3 8.5 4.3-11.0 10^3/uL Red Blood Count 3.95 L 4.27 L 4.35-5.85 10^6/uL Hemoglobin 8.8 L 9.9 L 11.5-16.0 G/DL Hematocrit 30 L 33 L 35-52 % Mean Corpuscular Volume 76 L 77 L 80-99 FL Mean Corpuscular Hemoglobin 22 L 23 L 25-34 PG Mean Corpuscular Hemoglobin Concent 29 L 30 L 32-36 G/DL Red Cell Distribution Width 18.3 H 18.3 H 10.0-14.5 % Platelet Count 216 187 130-400 10^3/uL Mean Platelet Volume 11.1 H 11.5 H 7.4-10.4 FL Neutrophils (%) (Auto) 66 63 42-75 % Lymphocytes (%) (Auto) 23 27 12-44 % Monocytes (%) (Auto) 9 8 0-12 % Eosinophils (%) (Auto) 1 1 0-10 % Basophils (%) (Auto) 1 0 0-10 % Neutrophils # (Auto) 6.1 5.3 1.8-7.8 X 10^3 Lymphocytes # (Auto) 2.2 2.3 1.0-4.0 X 10^3 Monocytes # (Auto) 0.9 0.7 0.0-1.0 X 10^3 Eosinophils # (Auto) 0.1 0.1 0.0-0.3 10^3/uL Basophils # (Auto) 0.1 0.0 0.0-0.1 10^3/uL Prothrombin Time 15.5 H 12.2-14.7 SEC INR Comment 1.2 0.8-1.4 Activated Partial Thromboplast Time 35 24-35 SEC Sodium Level 139 138 135-145 MMOL/L Potassium Level 4.2 3.7 3.6-5.0 MMOL/L Chloride Level 102 106 98-107 MMOL/L Carbon Dioxide Level 20 L 20 L 21-32 MMOL/L Anion Gap 17 H 12 5-14 MMOL/L Blood Urea Nitrogen 16 14 7-18 MG/DL Creatinine 1.33 H 0.82 0.60-1.30 MG/DL Estimat Glomerular Filtration Rate 40 > 60 BUN/Creatinine Ratio 12 17 Glucose Level 367 H 178 H 70-105 MG/DL Calcium Level 9.7 9.2 8.5-10.1 MG/DL Corrected Calcium 9.7 9.5 8.5-10.1 MG/DL Magnesium Level 1.4 L 1.4 L 1.8-2.4 MG/DL Total Bilirubin 0.5 0.5 0.1-1.0 MG/DL Aspartate Amino Transf (AST/SGOT) 43 H 40 H 5-34 U/L Alanine Aminotransferase (ALT/SGPT) 27 25 0-55 U/L Alkaline Phosphatase 134 128 40-136 U/L Troponin I < 0.30 <0.30 NG/ML B-Type Natriuretic Peptide 99.0 <100.0 PG/ML Total Protein 7.8 7.3 6.4-8.2 GM/DL Albumin 4.0 3.6 3.2-4.5 GM/DL Lipase 144 H 8-78 U/L Urine Color YELLOW Urine Clarity CLEAR Urine pH 6 5-9 Urine Specific [place] 1.015 L 1.016-1.022 Urine Protein 3+ H NEGATIVE Urine Glucose (UA) 1+ H NEGATIVE Urine Ketones NEGATIVE NEGATIVE Urine Nitrite NEGATIVE NEGATIVE Urine Bilirubin NEGATIVE NEGATIVE Urine Urobilinogen 1 NORMAL MG/DL Urine Leukocyte Esterase 1+ H NEGATIVE Urine RBC (Auto) 2+ H NEGATIVE Urine RBC 0-2 /HPF Urine WBC 2-5 /HPF Urine Crystals NONE /LPF Urine Bacteria TRACE /HPF Urine Casts PRESENT /LPF Urine Hyaline Casts 10-25 H /LPF Urine Coarse Granular Casts 0-2 H /LPF Urine White Blood Cell Casts RARE H /LPF Urine Mucus SMALL H /LPF Urine Culture Indicated NO Neutrophils % (Manual) 77 % Lymphocytes % (Manual) 17 % Monocytes % (Manual) 3 % Band Neutrophils 3 % Hypochromasia MARKED Anisocytosis MARKED Microcytosis MODERATE Glucometer 187 H 70-110 MG/DL My Orders Orders - CRISTELA,MIKEY K DO Saline Lock/Iv-Start (10/18/18 18:42) Ekg Tracing (10/18/18 18:42) Monitor-Rhythm Ecg Trace Only (10/18/18 18:42) BNP (10/18/18 18:42) Cbc With Automated Diff (10/18/18 18:42) Comprehensive Metabolic Panel (10/18/18 18:42) Lipase (10/18/18 18:42) Magnesium (10/18/18 18:42) Protime With Inr (10/18/18 18:42) Partial Thromboplastin Time (10/18/18 18:42) Troponin I (10/18/18 18:42) Ua Culture If Indicated (10/18/18 18:42) Type And Screen (10/18/18 18:42) Ct Head/Cervical Spine Wo (10/18/18 18:42) Chest 1 View, Ap/Pa Only (10/18/18 18:42) Saline Lock/Iv-Start (10/18/18 18:42) Ns Iv 1000 Ml (Sodium Chloride 0.9%) (10/18/18 18:42) O2 (10/18/18 18:42) Ns Iv 1000 Ml (Sodium Chloride 0.9%) (10/18/18 18:43) Red Cells Leukocytes Reduced (10/18/18 19:05) Ct Abdomen/Pelvis Wo (10/18/18 19:23) Magnesium 1 Gm/100 Ml Ivpb (Magnesium Luo (10/18/18 20:30) Saline Lock/Iv-Start (10/18/18 20:22) Ns Iv 1000 Ml (Sodium Chloride 0.9%) (10/18/18 20:22) Insulin (Regular) Human (Humulin R (Per (10/18/18 20:30) Pantoprazole Injection (Protonix Injecti (10/18/18 20:45) Medications Given in ED Current Medications Medications Dose Ordered Sig/Giancarlo Route Start Time Stop Time Status Last Admin Dose Admin Insulin Human Regular 20 unit ONCE ONCE IV 10/18/18 20:30 10/18/18 20:32 DC 10/18/18 21:07 20 UNIT Sodium Chloride 1,000 ml @ 0 mls/hr Q0M ONCE IV 10/18/18 20:22 10/18/18 20:32 DC 10/18/18 21:04 0 MLS/HR Vital Signs/I&O 10/18/18 10/18/18 10/18/18 10/18/18 22:03 22:10 22:15 22:40 Temp 96.9 99.3 Pulse 93 97 94 Resp 18 20 B/P (MAP) 101/64 (76) 129/64 (85) Pulse Ox 98 95 O2 Delivery Room Air Room Air Room Air O2 Flow Rate 2.00 10/18/18 10/18/18 10/19/18 10/19/18 23:20 23:43 00:00 01:00 Temp 98.4 98.4 100.0 Pulse 100 91 105 110 Resp 20 18 20 B/P (MAP) 110/65 100/64 99/63 (75) Pulse Ox 91 92 94 O2 Delivery Room Air Room Air Room Air 10/19/18 10/19/18 10/19/18 10/19/18 01:25 01:44 02:00 02:04 Temp 99.5 99.8 99.6 99.8 Pulse 101 99 103 95 Resp 18 20 22 20 B/P (MAP) 111/67 115/74 103/62 (76) 121/70 Pulse Ox 94 93 93 94 O2 Delivery Room Air Room Air Room Air Room Air 10/19/18 10/19/18 04:00 04:31 Temp 99.1 99.6 Pulse 96 92 Resp 20 18 B/P (MAP) 118/70 (86) 135/66 Pulse Ox 90 92 O2 Delivery Room Air 10/19/18 00:00 Intake Total 1000 ml Balance 1000 ml Capillary Refill : Progress Note : Progress Note INITIAL BP 80'S SYSTOLIC, WITH DROP TO 60'S ON LAY TO SIT. NO FURTHER ORTHOSTATICS DONE PT IS VERY SYMPTOMATIC WITH DROP IN BP NO DETERIORATION IN PT'S CONDITION DURING ER STAY BP UP WITH FLUIDS. ECG Initial ECG Impression Date: Oct 18, 2018 Initial ECG Impression Time: 18:57 Initial ECG Rate: 97 Initial ECG Rhythm: Normal Sinus (WITH PVC) Diagnostic Imaging Comments CT HEAD/CERVICAL SPINE--NO ACUTE PROCESS, CHRONIC MICROVASCULAR CHANGES OF BRAIN , DEGENERATIVE CHANGES OF SPINE CT ABDOMEN/PELVIS--MILD SPLENOMEGALY, MILD DIFFUSE DIVERTICULAR DISEASE WITHOUT ACUTE DIVERTICULITIS, NO ACUTE PROCESS PER RADIOLOGIST REPORTS @ 2010 CXR--NO ACUTE PROCESS, CHRONIC BIBASILAR CHANGES, POSTOP CHANGES, PER RADIOLOGIST REPORT @ 2020 Reviewed: Reviewed by Me Departure Communication (Admissions) 2029--SPOKE WITH DR. GAFFNEY, H[facility]. ACCEPTS PT FOR ADMIT. ORDERS NOTED. Impression Primary Impression: SEVERE ANEMIA WITH HYPOTENSION AND SYNCOPE Additional Impressions: Closed head injury NIDDM-UNCONTROLLED Hypomagnesemia Dehydration Disposition: ADMITTED INPATIENT Condition: Stable Admissions Decision to Admit Reason: Admit from ER (General) Decision to Admit/Date: Oct 18, 2018 Time/Decision to Admit Time: 20:30 Departure-Patient Inst. Referrals: UDAY SALAZAR MD (PCP/Family) Primary Care Physician MIKEY ARCHIBALD DO Oct 18, 2018 18:48
[2018-10-18 18:51] LABS: BASOPHILS # (AUTO) 0.1 10^3/uL (0.0-0.1); BASOPHILS % (AUTO) 1 % (0-10); EOSINOPHILS # (AUTO) 0.1 10^3/uL (0.0-0.3); EOSINOPHILS % (AUTO) 1 % (0-10); HEMATOCRIT 30 % (35-52); HEMOGLOBIN 8.8 G/DL (11.5-16.0); LYMPHOCYTES # (AUTO) 2.2 X 10^3 (1.0-4.0); LYMPHOCYTES % (AUTO) 23 % (12-44); MEAN CORPUSCULAR HEMOGLOBIN 22 PG (25-34); MEAN CORPUSCULAR HGB CONC 29 G/DL (32-36); MEAN CORPUSCULAR VOLUME 76 FL (80-99); MEAN PLATELET VOLUME 11.1 FL (7.4-10.4); MONOCYTES # (AUTO) 0.9 X 10^3 (0.0-1.0); MONOCYTES % (AUTO) 9 % (0-12); NEUTROPHILS # (AUTO) 6.1 X 10^3 (1.8-7.8); NEUTROPHILS % (AUTO) 66 % (42-75); PLATELET COUNT 216 10^3/uL (130-400); RED BLOOD COUNT 3.95 10^6/uL (4.35-5.85); RED CELL DISTRIBUTION WIDTH 18.3 % (10.0-14.5); WHITE BLOOD COUNT 9.3 10^3/uL (4.3-11.0)
[2018-10-18 18:58] VITALS: BP_SYST 104; BP_SYST 65; BP_SYST 96; BP_DIAS 43; BP_DIAS 59; BP_DIAS 61
[2018-10-18 18:58] LABS: INR 1.2 (0.8-1.4); PROTHROMBIN TIME PATIENT 15.5 SEC (12.2-14.7)
[2018-10-18 19:07] LABS: ALANINE AMINOTRANSFERASE 27 U/L (0-55); ALKALINE PHOSPHATASE 134 U/L (40-136); BILIRUBIN,TOTAL 0.5 MG/DL (0.1-1.0); BUN/CREATININE RATIO 12; CALCIUM 9.7 MG/DL (8.5-10.1); CARBON DIOXIDE 20 MMOL/L (21-32); CHLORIDE 102 MMOL/L (98-107); CREATININE SERUM 1.33 MG/DL (0.60-1.30); GFR ESTIMATED 40; GLUCOSE 367 MG/DL (70-105); LIPASE 144 U/L (8-78); MAGNESIUM 1.4 MG/DL (1.8-2.4); POTASSIUM 4.2 MMOL/L (3.6-5.0); SODIUM 139 MMOL/L (135-145); TOTAL PROTEIN 7.8 GM/DL (6.4-8.2)
--- NOTE | 2018-10-18 20:08 | Diagnostic Imaging Report ---
INDICATION: Anemia CT abdomen and pelvis obtained without IV contrast. No previous study for comparison. The visualized portions of the lung bases are clear. There were no pleural fluid collections. There is no free intraperitoneal air. The liver shows diffuse mild enlargement with no focal lesion without contrast. Gallbladder appears unremarkable. Spleen is mildly enlarged measuring 13.7 cm. The adrenals and pancreas appear unremarkable. Kidneys appear unremarkable without contrast bilaterally. There is no retroperitoneal hematoma. There is no ascites or hemoperitoneum. Visualized bowel loops show no overt obstruction or focal bowel wall thickening. There is diffuse uncomplicated colonic diverticulosis. There is diffuse calcification of the aorta and iliac vessels. IMPRESSION: Mild hepatosplenomegaly. No focal mass lesion is seen. There is no free fluid or abscess. There is diffuse uncomplicated colonic diverticulosis. Dictated by: Dictated on workstation # [id number]
--- NOTE | 2018-10-18 20:08 | Diagnostic Imaging Report ---
INDICATION: Syncope and fall. CT BRAIN FINDINGS: Noncontrast brain CT was performed. FINDINGS: There are mild diffuse atrophic changes. There are no extra-axial fluid collections. No intracranial hemorrhage. No intracranial mass or mass effect. No midline shift. The ventricles are normal in size and position. There are mild chronic changes in the deep white matter. Calvarial windows are unremarkable. CT CERVICAL SPINE FINDINGS: Axial sinuses were obtained with sagittal and coronal reconstructions without contrast. There was no evidence of cervical spine fracture. Incidental atherosclerotic calcifications noted at the carotid bifurcations on both sides. There is diffuse facet degenerative change throughout the cervical spine at all levels. There is disc space narrowing at all levels. The most prominent is at C5-6 and C6-7. IMPRESSION: 1. CT brain demonstrates no acute intracranial abnormality. There is mild atrophic change and chronic change in the deep white matter. 2. The cervical spine demonstrates diffuse degenerative changes with no acute fracture or subluxation. Dictated by: Dictated on workstation # [id number]
--- NOTE | 2018-10-18 20:16 | Diagnostic Imaging Report ---
INDICATION: History of bypass. EXAMINATION: Frontal chest was obtained at 7:13 p.m. COMPARISON: 04/09/2018. FINDINGS: There is poststernotomy change and borderline cardiomegaly. There are chronic appearing increased basilar markings. There is no acute infiltrate, pneumothorax or pleural fluid. IMPRESSION: Postoperative changes with borderline heart size and mild chronic appearing increased basilar markings. No acute infiltrate, pleural fluid or pneumothorax. Dictated by: Dictated on workstation # [id number]
[2018-10-18 20:25] LABS: BILIRUBIN,URINE NEGATIVE (NEGATIVE); CLARITY,URINE CLEAR; COLOR,URINE YELLOW; GLUCOSE, URINE (UA) 1+ (NEGATIVE); KETONES,URINE NEGATIVE (NEGATIVE); LEUKOCYTE ESTERASE ,URINE 1+ (NEGATIVE); NITRITE,URINE NEGATIVE (NEGATIVE); PH,URINE 6 (5-9); PROTEIN,URINE 3+ (NEGATIVE); UROBILINOGEN,URINE 1 MG/DL (NORMAL)
[2018-10-18] MEDS ORDERED: MAGNESIUM 1 GM/100 ML IVPB 100 ML IV SCH (20:30)
[2018-10-18] MEDS ORDERED: inSUlin (REGULAR) HUMAN 1 UNIT/0.01 ML (CHARGE PER UNIT) IV ONE (20:30)
[2018-10-18 20:33] LABS: BACTERIA,URINE TRACE /HPF; RBC,URINE 0-2 /HPF
[2018-10-18 20:34] LABS: WHITE BLOOD CELL CASTS, URINE RARE /LPF
[2018-10-18] MEDS ORDERED: PANTOPRAZOLE 40 MG (PROTONIX) VIAL IV ONE (20:45)
--- OUTSIDE RECORDS SUMMARY | 2018-10-18 21:06 | XMS REPORT | Continuity of Care Document ---
Author Author [facility] Organization [facility] Address Unknown Phone Unavailable Allergies Active Description Code Type Severity Reaction Onset Reported/Identified Relationship to Patient Clinical Status Yes No Allergy Information Available [id number] Drug Allergy Unknown N/A 2015 Yes latex [id number] Drug Allergy Unknown HIVES 10/04/2017 Yes nickel [id number] Drug Allergy Unknown HIVES 10/04/2017 Medications There [...] ATKINS Ot I25.10 ATHSCL HEART DISEASE OF [place] CORONARY 10/17/1355 VIJAY ATKINS Ot I73.9 PERIPHERAL VASCULAR DISEASE, UNSPECIFIED 10/17/1355 VIJAY ATKINS Ot R42 DIZZINESS AND GIDDINESS 10/17/1355 VIJAY ATKINS Ot 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 10/17/1355 VIJAY ATKINS Ot Z79.899 OTHER [facility] (CURRENT) DRUG THERAPY 10/17/1355 VIJAY ATKINS Ot [...] PRAVEEN K Ot I10 02/23/2016 SANTANA-VANDANA PA, PARVEEN K Ot I25.10 02/27/2016 SANTANA-VANDANA PA, PRAVEEN [...] VILLAVICENCIO Ot I25.10 ATHSCL HEART DISEASE OF [place] CORONARY 03/07/2016 PRAVEEN VILLAVICENCIO Ot E11.9 TYPE 2 DIABETES MELLITUS WITHOUT COMPLIC 03/07/2016 PRAVEEN VILLAVICENCIO Ot E78.2 MIXED HYPERLIPIDEMIA 03/07/2016 PRAVEEN VILLAVICENCIO Ot I10 ESSENTIAL (PRIMARY) HYPERTENSION 03/07/2016 PRAVEEN VILLAVICENCIO Ot I25.10 ATHSCL HEART DISEASE OF [place] CORONARY 03/15/2016 PRAVEEN VILLAVICENCIO Ot E11.9 TYPE 2 DIABETES MELLITUS WITHOUT COMPLIC 03/15/2016 PRAVEEN VILLAVICENCIO Ot E78.2 MIXED HYPERLIPIDEMIA 03/15/2016 PRAVEEN VILLAVICENCIO Ot I10 ESSENTIAL (PRIMARY) HYPERTENSION 03/15/2016 PRAVEEN VILLAVICENCIO Ot I25.10 ATHSCL HEART DISEASE OF [place] CORONARY 08/06/2017 Ot 397.0 TRICUSPID VALVE DISEASE [...] VILLAVICENCIO Ot I25.10 ATHSCL HEART DISEASE OF [place] CORONARY 09/04/2017 UDAY SALAZAR MD R Ot [...] MD, Ot I25.10 ATHSCL HEART DISEASE OF [place] CORONARY 09/18/2017 OLIVIA SORENSON MD, Ot K57.30 DVRTCLOS OF LG INT W/O PERFORATION OR AB 09/18/2017 OLIVIA SORENSON MD, Ot K64.1 SECOND DEGREE HEMORRHOIDS 09/18/2017 OLIVIA SORENSON MD, Ot Z12.11 ENCOUNTER FOR SCREENING FOR MALIGNANT NE 09/18/2017 OLIVIA SORENSON MD, Ot Z79.84 [facility] (CURRENT) USE OF ORAL HYPOGLYC 09/18/2017 OLIVIA SORENSON MD, Ot Z79.899 OTHER [facility] (CURRENT) DRUG THERAPY 09/18/2017 OLIVIA SORENSON MD, [...] MD, Ot I25.10 ATHSCL HEART DISEASE OF [place] CORONARY 09/20/2017 OLIVIA SORENSON MD, Ot K57.30 DVRTCLOS OF LG INT W/O PERFORATION OR AB 09/20/2017 OLIVIA SORENSON MD, Ot K64.1 SECOND DEGREE HEMORRHOIDS 09/20/2017 OLIVIA SORENSON MD, Ot Z12.11 ENCOUNTER FOR SCREENING FOR MALIGNANT NE 09/20/2017 OLIVIA SORENSON MD, Ot Z79.84 [facility] (CURRENT) USE OF ORAL HYPOGLYC 09/20/2017 OLIVIA SORENSON MD, Ot Z79.899 OTHER [employer] (CURRENT) DRUG THERAPY 09/20/2017 OLIVIA SORENSON [...] DO Ot I25.10 ATHSCL HEART DISEASE OF [place] CORONARY 10/11/2017 JOHN CRUZ DO Ot N81.10 CYSTOCELE, UNSPECIFIED 10/11/2017 JOHN CRUZ DO Ot N81.6 RECTOCELE 10/11/2017 JOHN CRUZ DO Ot R93.8 ABNORMAL FINDINGS ON DIAGNOSTIC IMAGING 10/11/2017 JOHN CRUZ DO Ot Z78.0 ASYMPTOMATIC MENOPAUSAL STATE 10/11/2017 JOHN CRUZ DO Ot Z79.02 [facility] (CURRENT) USE OF ANTITHROMBOTI 10/11/2017 JOHN CRUZ DO Ot 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 10/11/2017 JOHN CRUZ DO Ot Z79.899 OTHER [facility] (CURRENT) DRUG THERAPY 10/11/2017 JOHN CRUZ DO [...] S Ot I25.10 ATHSCL HEART DISEASE OF [place] CORONARY 10/30/2017 NANCY RODRIGUEZ JOHN Carpenter Ot N81.10 CYSTOCELE, UNSPECIFIED 10/30/2017 NANCY RODRIGUEZ JOHN Pauline Ot N81.6 RECTOCELE 10/30/2017 NANCY RODRIGUEZ JOHN Carpenter Ot R93.8 ABNORMAL FINDINGS ON DIAGNOSTIC IMAGING 10/30/2017 NANCY RODRIGUEZ JOHN Carpenter Ot Z78.0 ASYMPTOMATIC MENOPAUSAL STATE 10/30/2017 NANCY RODRIGUEZ JOHN Carpenter Ot Z79.02 [facility] (CURRENT) USE OF ANTITHROMBOTI 10/30/2017 NANCY RODRIGUEZ JOHN Pauline Ot 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 10/30/2017 NANCY RODRIGUEZ JOHN Carpenter Ot Z79.899 OTHER [facility] (CURRENT) DRUG THERAPY 10/30/2017 NANCY RODRIGUEZ JOHN [...] MD Ot I25.10 ATHSCL HEART DISEASE OF [place] CORONARY 02/21/2018 PHYLLIS NIETO MD Ot Z72.0 TOBACCO USE 02/25/2018 PHYLLIS NIETO MD Ot E11.9 TYPE 2 DIABETES MELLITUS WITHOUT COMPLIC 02/25/2018 PHYLLIS NIETO MD Ot E78.5 HYPERLIPIDEMIA, UNSPECIFIED 02/25/2018 PHYLLIS NIETO MD Ot I10 ESSENTIAL (PRIMARY) HYPERTENSION 02/25/2018 PHYLLIS NIETO MD Ot I25.10 ATHSCL HEART DISEASE OF [place] CORONARY 02/25/2018 PHYLLIS NIETO MD Ot Z72.0 TOBACCO USE 03/04/2018 PHYLLIS NIETO MD Ot E11.9 TYPE 2 DIABETES MELLITUS WITHOUT COMPLIC 03/04/2018 PHYLLIS NIETO MD Ot E78.5 HYPERLIPIDEMIA, UNSPECIFIED 03/04/2018 PHYLLIS NIETO MD Ot I10 ESSENTIAL (PRIMARY) HYPERTENSION 03/04/2018 PHYLLIS NIETO MD Ot I25.10 ATHSCL HEART DISEASE OF [place] CORONARY 03/04/2018 PHYLLIS NIETO MD Ot Z72.0 TOBACCO USE 03/05/2018 PHYLLIS NIETO MD Ot E11.9 TYPE 2 DIABETES MELLITUS WITHOUT COMPLIC 03/05/2018 PHYLLIS NIETO MD Ot E78.5 HYPERLIPIDEMIA, UNSPECIFIED 03/05/2018 PHYLLIS NIETO MD Ot F17.210 NICOTINE DEPENDENCE, CIGARETTES, UNCOMPL 03/05/2018 PHYLLIS NIETO MD Ot I10 ESSENTIAL (PRIMARY) HYPERTENSION 03/05/2018 PHYLLIS NIETO MD Ot I25.10 ATHSCL HEART DISEASE OF [place] CORONARY 03/05/2018 PHYLLIS NIETO MD Ot I65.23 [...] MD Ot I25.10 ATHSCL HEART DISEASE OF [place] CORONARY 03/06/2018 PHYLLIS NIETO MD Ot I65.23 [...] MIKEY K Ot Y92.[address] IN [facility] NON-INSTITUT (PRIVATE 05/05/2018 CRISTELA DO, MIKEY K Ot R42 DIZZINESS AND GIDDINESS 05/05/2018 CRISTELA DO, MIKEY K Ot W19.XXXA UNSPECIFIED FALL, INITIAL ENCOUNTER 05/05/2018 CRISTELA DO, MIKEY K Ot Y92.[address] IN [facility] NON-INSTITUT (PRIVATE 05/13/2018 PHYLLIS NIETO MD Ot E78.5 HYPERLIPIDEMIA, UNSPECIFIED 05/13/2018 PHYLLIS NIETO MD Ot 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AL AND T 05/13/2018 PHYLLIS NIETO MD Ot I10 ESSENTIAL (PRIMARY) HYPERTENSION 05/13/2018 PHYLLIS NIETO MD Ot I25.10 ATHSCL HEART DISEASE OF [place] CORONARY 05/13/2018 PHYLLIS NIETO MD Ot R07.9 CHEST PAIN, UNSPECIFIED 05/13/2018 PHYLLIS NIETO MD Ot Z72.0 TOBACCO USE 05/13/2018 PHYLLIS NIETO MD Ot E78.5 HYPERLIPIDEMIA, UNSPECIFIED 05/13/2018 PHYLLIS NIETO MD Ot 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AL AND T 05/13/2018 PHYLLIS NIETO MD Ot I10 ESSENTIAL (PRIMARY) HYPERTENSION 05/13/2018 PHYLLIS NIETO MD Ot I25.10 ATHSCL HEART DISEASE OF [place] CORONARY 05/13/2018 PHYLLIS NIETO MD Ot R07.9 [...] MD Ot I25.10 ATHSCL HEART DISEASE OF [place] CORONARY 05/22/2018 PHYLLIS NIETO MD Ot R07.9 [...] ATKINS Ot I25.10 ATHSCL HEART DISEASE OF [place] CORONARY 06/02/2018 VIJAY ATKINS Ot I73.9 PERIPHERAL VASCULAR DISEASE, UNSPECIFIED 06/02/2018 VIJAY ATKINS N Ot R42 DIZZINESS AND GIDDINESS 06/02/2018 VIJAY ATKINS Ot 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 06/02/2018 VIJAY ATKINS Ot Z79.899 OTHER [facility] (CURRENT) DRUG THERAPY 06/02/2018 VIJAY ATKINS N [...] N Ot I25.10 ATHSCL HEART DISEASE OF [place] CORONARY 06/09/2018 VIJAY ATKINS N Ot I73.9 PERIPHERAL VASCULAR DISEASE, UNSPECIFIED 06/09/2018 WILBERT VIJAY N Ot R42 DIZZINESS AND GIDDINESS 06/09/2018 WILBERTROHINISHREYA N Ot Z79.4 [facility] (CURRENT) USE OF INSULIN 06/09/2018 WILBERT ROHINIAN N Ot Z79.899 OTHER [facility] (CURRENT) DRUG THERAPY 06/09/2018 WILBERT, BOBAN N Ot Z95.1 PRESENCE OF AORTOCORONARY BYPASS GRAFT 06/09/2018 WILBERTVIJAY N Ot Z95.820 PERIPHERAL VASCULAR ANGIOPLASTY STATUS W 07/04/2018 Ot E11.9 TYPE 2 DIABETES MELLITUS WITHOUT COMPLIC 07/04/2018 Ot E78.5 HYPERLIPIDEMIA, UNSPECIFIED 07/04/2018 Ot I10 ESSENTIAL ( PRIMARY) HYPERTENSION 07/04/2018 Ot I25.10 ATHSCL HEART DISEASE OF [place] CORONARY 07/17/2018 VIJAY ATKINS N Ot D64.9 ANEMIA, UNSPECIFIED 07/17/2018 WILBERTVIJAY PLASCENCIA N Ot 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 AUTONOMIC (PO 07/17/2018 VIJAY ATKINS N Ot E78.5 HYPERLIPIDEMIA, UNSPECIFIED 07/17/2018 VIJAY ATKINS N Ot F17.210 NICOTINE DEPENDENCE, CIGARETTES, UNCOMPL 07/17/2018 VIJAY ATKINS N Ot I10 ESSENTIAL (PRIMARY) HYPERTENSION 07/17/2018 VIJAY ATKINS N Ot I25.10 ATHSCL HEART DISEASE OF [place] CORONARY 07/17/2018 VIJAY ATKINS N Ot I73.9 PERIPHERAL VASCULAR DISEASE, UNSPECIFIED 07/17/2018 WILBERTVIJAY N Ot R42 DIZZINESS AND GIDDINESS 07/17/2018 WILBERT BOBAN N Ot 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 07/17/2018 WILBERTROHINIAN N Ot Z79.899 OTHER [employer] RO[employer] WORK[employer] (CURRENT) DRUG THERAPY 07/17/2018 WILBERT BOBAN [...] N Ot I25.10 ATHSCL HEART DISEASE OF [place] CORONARY 07/18/2018 WILBERT, BOBAN N Ot I73.9 PERIPHERAL VASCULAR DISEASE, UNSPECIFIED 07/18/2018 WILBERT, BOBAN N Ot R42 DIZZINESS AND GIDDINESS 07/18/2018 WILBERT, BOBAN N Ot Z79.4 [facility] (CURRENT) USE OF INSULIN 07/18/2018 WILBERT, BOBAN N Ot Z79.899 [facility] (CURRENT) DRUG THERAPY 07/18/2018 WILBERT, BOBAN N [...] N Ot I25.10 ATHSCL HEART DISEASE OF [place] CORONARY 07/18/2018 WILBERT, BOBAN N Ot I73.9 PERIPHERAL VASCULAR DISEASE, UNSPECIFIED 07/18/2018 WILBERT, BOBAN N Ot R42 DIZZINESS AND GIDDINESS 07/18/2018 WILBERT, BOBAN N Ot Z79.4 [facility] (CURRENT) USE OF INSULIN 07/18/2018 WILBERT, BOBAN N Ot Z79.899 OTHER [employer]KE RO[employer] WORK[employer] (CURRENT) DRUG THERAPY 07/18/2018 VIJAY ATKINS Derrick Ot Z95.1 PRESENCE OF AORTOCORONARY BYPASS GRAFT 07/18/2018 VIJAY ATKINS Derrick Ot Z95.820 PERIPHERAL VASCULAR ANGIOPLASTY STATUS W 08/14/2018 Ot D50.0 IRON 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 08/14/2018 Ot E11.9 TYPE 2 DIABETES MELLITUS WITHOUT COMPLIC 08/14/2018 Ot E78.5 HYPERLIPIDEMIA, UNSPECIFIED 08/14/2018 Ot I10 ESSENTIAL ( PRIMARY) HYPERTENSION 08/14/2018 Ot I25.10 ATHSCL HEART DISEASE OF [place] CORONARY 08/19/2018 VIJAY ATKINS Derrick Ot D64.9 ANEMIA, UNSPECIFIED 08/19/2018 VIJAY ATKINS Derrick Ot 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 AUTONOMIC (PO 08/19/2018 VIJAY ATKINS Derrick Ot E78.5 HYPERLIPIDEMIA, UNSPECIFIED 08/19/2018 VIJAY ATKINS Derrick Ot F17.210 NICOTINE DEPENDENCE, CIGARETTES, UNCOMPL 08/19/2018 VIJAY ATKINS Derrick Ot I10 ESSENTIAL (PRIMARY) HYPERTENSION 08/19/2018 VIJAY ATKINS Derrick Ot I25.10 ATHSCL HEART DISEASE OF [place] CORONARY 08/19/2018 VIJAY ATKINS Derrick Ot I73.9 PERIPHERAL VASCULAR DISEASE, UNSPECIFIED 08/19/2018 VIJAY ATKINS Derrick Ot R42 DIZZINESS AND GIDDINESS 08/19/2018 VIJAY ATKINS Derrick Ot 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 08/19/2018 VIJAY ATKINS Derrick Ot Z79.899 [facility] (CURRENT) DRUG THERAPY 08/19/2018 VIJAY ATKINS Derrick [...] 08/20/2018 Ot I25.10 ATHSCL HEART DISEASE OF [place] CORONARY 08/28/2018 Ot D50.0 IRON DEFICIENCY ANEMIA [...] MD Ot I25.10 ATHSCL HEART DISEASE OF [place] CORONARY 09/29/2018 PHYLLIS NIETO MD Ot Z72.0 [...] MD Ot I25.10 ATHSCL HEART DISEASE OF [place] CORONARY 09/29/2018 PHYLLIS NIETO MD Ot R07.9 CHEST PAIN, UNSPECIFIED 09/29/2018 PHYLLIS NIETO MD Ot Z72.0 TOBACCO USE 09/29/2018 PHYLLIS NIETO MD Ot D64.9 ANEMIA, UNSPECIFIED 09/29/2018 Ot D50.0 IRON 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 09/29/2018 Ot E11.9 TYPE 2 DIABETES MELLITUS WITHOUT COMPLIC 09/29/2018 Ot E78.5 HYPERLIPIDEMIA, UNSPECIFIED 09/29/2018 Ot I10 ESSENTIAL ( PRIMARY) HYPERTENSION 09/29/2018 Ot I25.10 ATHSCL HEART DISEASE OF [place] CORONARY 09/29/2018 VIJAY ATKINS Ot D64.9 ANEMIA, UNSPECIFIED 09/29/2018 VIJAY ATKINS Ot 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 AUTONOMIC (PO 09/29/2018 VIJAY ATKINS Ot E78.5 HYPERLIPIDEMIA, UNSPECIFIED 09/29/2018 VIJAY ATKINS Ot F17.210 NICOTINE DEPENDENCE, CIGARETTES, UNCOMPL 09/29/2018 VIJAY ATKINS Ot I10 ESSENTIAL (PRIMARY) HYPERTENSION 09/29/2018 VIJAY ATKINS Ot I25.10 ATHSCL HEART DISEASE OF [place] CORONARY 09/29/2018 VIJAY ATKINS Ot I73.9 PERIPHERAL VASCULAR DISEASE, UNSPECIFIED 09/29/2018 VIJAY ATKINS Ot R42 DIZZINESS AND GIDDINESS 09/29/2018 VIJAY ATKINS Ot 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 Type Provider Facility Loc./Unit Complaint [id number] 10/06/2018 09:42:00 10/06/2018 23:59:59 CLS Outpatient PHYLLIS NIETO MD [facility] CR STATUS POST ACB [id number] 08/18/2018 00:58:00 08/18/2018 23:59:59 CLS Preadmit VIJAY ATKINS [facility] ONC [id number] 07/17/2018 13:58:00 07/18/2018 00:01:00 DIS Outpatient VIJAY ATKINS [facility] ONC [id number] 06/17/2018 14:41:00 07/17/2018 13:56:00 DIS Outpatient VIJAY ATKINS [facility] ONC [id number] 05/15/2018 17:05:00 05/15/2018 23:59:59 CLS Outpatient PHYLLIS NIETO MD [facility] LAB ANEMIA [id number] 05/08/2018 15:17:00 05/08/2018 23:59:59 CLS Outpatient PHYLLIS NIETO MD [facility] CARD CAD,CHEST PAIN,HTN, DIZZINESS [id number] 05/01/2018 17:04:00 05/01/2018 18:04:00 DIS Emergency MIKEY ARCHIBALD DO [facility] ER DIZZINESS;FALL AT HOME [id number] 04/09/2018 12:51:00 04/09/2018 23:59:59 CLS Outpatient ALAN ROD MD [facility] RAD I25.810 [id number] 03/05/2018 06:49:00 03/05/2018 13:00:00 DIS Outpatient PHYLLIS NIETO MD [facility] CATH ABN STRESS TEST,CAD,HTN [id number] 02/19/2018 07:43:00 02/19/2018 23:59:59 CLS Outpatient PHYLLIS NIETO MD [facility] CARD CAD [id number] 10/11/2017 06:09:00 10/11/2017 09:40:00 DIS Outpatient JOHN CRUZ DO [facility] SDC THICKENED ENDOMETRIUM [id number] 10/04/2017 09:10:00 10/04/2017 10:03:00 DIS Outpatient JOHN RCUZ DO [facility] PREOP THICKENED ENDOMETRIUM [id number] 09/18/2017 09:25:00 09/18/2017 12:10:00 DIS Outpatient OLIVIA SORENSON MD [facility] ENDO FAM HX COLON CA, HX POLYPS [id number] 09/12/2017 14:30:00 09/12/2017 14:54:00 DIS Outpatient OLIVIA SORENSON MD [facility] PREOP COLO [id number] 08/29/2017 14:52:00 08/29/2017 23:59:59 CLS Outpatient UDAY SALAZAR MD [facility] RAD ABDOMINAL PAIN LUQ R10.12 [id number] 08/26/2017 06:43:00 08/26/2017 23:59:59 CLS Outpatient UDAY SALAZAR MD [facility] RAD ABDOMINAL PAIN LEFT UPPER QUADRANT [id number] 08/08/2017 15:15:00 08/08/2017 23:59:59 CLS Preadmit UDAY SALAZAR MD [facility] RAD LUQ ABD PAIN [id number] 02/27/2016 07:08:00 02/27/2016 23:59:59 CLS Outpatient PRAVEEN VILLAVICENCIO [facility] CARD [id number] 02/21/2016 14:51:00 02/21/2016 23:59:59 CLS Outpatient BERNABE ROLDAN, PRAVEEN Bernal [facility] CARD CAD,HTN,HLP , NIDDM [id number] 02/14/2016 13:02:00 02/14/2016 23:59:59 CLS Outpatient GERSON BARKER, PHYLLIS Morales [facility] RAD [id number] 06/24/2018 11:37:00 Document Registration [id number] 06/24/2018 11:32:00 Document Registration [id number] 02/21/2016 14:51:00 Document Registration [id number] 02/25/2013 10:45:00 Document Registration [id number] 08/13/2011 07:02:00 Document Registration [id number] 08/10/2011 08:28:00 Document Registration
[2018-10-18 22:15] VITALS: BP 129/64
[2018-10-18 23:20] VITALS: BP 110/65
[2018-10-18 23:43] VITALS: BP 100/64
[2018-10-19] VITALS (10 sets, daily range): BP systolic 99–135; BP diastolic 62–77
[2018-10-19] MEDS: NS IV 1000 ML 1,000 ML IV SCH ×2 (00:23→10:59)
[2018-10-19] MEDS: inSUlin ASPART (NovoLOG) 1 UNIT/0.01 ML (CHARGE PER UNIT) SC SCH ×2 (05:44→11:09)
[2018-10-19 05:52] LABS: BASOPHILS % (AUTO) 0 % (0-10); EOSINOPHILS # (AUTO) 0.1 10^3/uL (0.0-0.3); EOSINOPHILS % (AUTO) 1 % (0-10); HEMATOCRIT 33 % (35-52); HEMOGLOBIN 9.9 G/DL (11.5-16.0); LYMPHOCYTES # (AUTO) 2.3 X 10^3 (1.0-4.0); LYMPHOCYTES % (AUTO) 27 % (12-44); MEAN CORPUSCULAR HEMOGLOBIN 23 PG (25-34); MEAN CORPUSCULAR HGB CONC 30 G/DL (32-36); MEAN CORPUSCULAR VOLUME 77 FL (80-99); MEAN PLATELET VOLUME 11.5 FL (7.4-10.4); MONOCYTES # (AUTO) 0.7 X 10^3 (0.0-1.0); MONOCYTES % (AUTO) 8 % (0-12); NEUTROPHILS # (AUTO) 5.3 X 10^3 (1.8-7.8); NEUTROPHILS % (AUTO) 63 % (42-75); PLATELET COUNT 187 10^3/uL (130-400); RED BLOOD COUNT 4.27 10^6/uL (4.35-5.85); RED CELL DISTRIBUTION WIDTH 18.3 % (10.0-14.5); WHITE BLOOD COUNT 8.5 10^3/uL (4.3-11.0)
[2018-10-19 06:11] LABS: ALANINE AMINOTRANSFERASE 25 U/L (0-55); ALBUMIN 3.6 GM/DL (3.2-4.5); ALKALINE PHOSPHATASE 128 U/L (40-136); BILIRUBIN,TOTAL 0.5 MG/DL (0.1-1.0); BUN/CREATININE RATIO 17; CALCIUM 9.2 MG/DL (8.5-10.1); CARBON DIOXIDE 20 MMOL/L (21-32); CHLORIDE 106 MMOL/L (98-107); CREATININE SERUM 0.82 MG/DL (0.60-1.30); GFR ESTIMATED > 60; GLUCOSE 178 MG/DL (70-105); MAGNESIUM 1.4 MG/DL (1.8-2.4); POTASSIUM 3.7 MMOL/L (3.6-5.0); SODIUM 138 MMOL/L (135-145); TOTAL PROTEIN 7.3 GM/DL (6.4-8.2)
[2018-10-19 06:15] LABS: BAND NEUTROPHILS 3 %; LYMPHOCYTES % (MANUAL) 17 %; MONOCYTES % (MANUAL) 3 %; NEUTROPHILS % (MANUAL) 77 %
[2018-10-19 06:16] LABS: ANISOCYTOSIS MARKED; HYPOCHROMASIA MARKED; MICROCYTOSIS MODERATE
[2018-10-19] MEDS ORDERED: glipiZIDE XL 10 MG (GLUCOTROL XL) TAB PO SCH (06:30)
[2018-10-19] MEDS ORDERED: PANTOPRAZOLE 40 MG (PROTONIX) VIAL IV SCH (09:00)
[2018-10-19] MEDS ORDERED: FLUDROCORTISONE 0.1 MG (FLORINEF) TAB PO NR (09:14)
--- NOTE | 2018-10-19 11:15 | History & Physical-Hospitalist ---
History of Present Illness HPI/Chief Complaint The patient is a 67-year-old white female who the day before admission mall standing at the kitchen table became lightheaded and then passed out striking the left side of her for head. She reported no confusion and was likely only out for a matter of seconds according to her . There was no loss of bowel or bladder control. She noticed some pain and then reportedly slept for the next 18-20 hours. She's had 5 or 6 other syncopal episodes all while standing still over the past 6 months. Symptoms were aggravated after bypass surgery in March at which time she also went apparent bilateral iliac stent placement. Since that time she has had iron deficiency anemia felt to be due to GI bleed and is seen Dr. Bañuelos and has received IV iron last dose was last week in addition to B12 and is scheduled to see Dr. SORENSON on Saturday for endoscopy evaluation. She's had some intermittent melena denying bright red blood per rectum. Plavix was discontinued but she was still taking a baby aspirin daily. She has no reported known past history of peptic ulcer disease or GI bleeding. There is a family history for colon cancer in her father reportedly in his 30s. Her last colonoscopy was reportedly a year and a half ago revealing no evidence for neoplasia. She reports long-standing type II diabetes mellitus which is now insulin-requiring that dates back to her 30s or 40s she's not sure. She has multiple episodes of lightheadedness which are postural in etiology with associated fatigue to the point that she has been nearly housebound for at least the past month. Apparently other than recommendations increased salt in the distant continuation of hypertensive medication several months ago she has been on no other therapy for orthostatic hypotension which has been documented per her report on numerous occasions. As she reports no recent melena. She is adamant about discharge later today so as to make an appointment with Dr. Napier her cardiothoracic surgeon scheduled for tomorrow morning. Date Seen 10/19/18 Time Seen by a Provider: 07:30 Attending Physician Kirsten Cabral MD PCP Jas Barnes MD Referring Physician Date of Admission Oct 18, 2018 at 20:30 Home Medications & Allergies Home Medications Reviewed patient Home Medication Reconciliation performed by pharmacy medication reconciliations relay technician and/or nursing. Patients Allergies have been reviewed. Allergies Allergies Coded Allergies latex (Verified Allergy, Unknown, HIVES, 10/04/17) nickel (Verified Allergy, Unknown, HIVES, 10/04/17) Past Bncuorn-Jgcimj-Jxveyw Hx Past Med/Social Hx: Reviewed and Corrections made Patient Social History Alcohol Use: Occasionally Uses Recreational Drug Use: No Smoking Status: Current Everyday Smoker (1 PPD) Former Smoker, Quit: March 26, 2018 Type Used: Cigarettes (1 PPD) Physical Abuse Screen: No Sexual Abuse: No Recent Foreign Travel: No Contact w/other who traveled: No Recent Hopitalizations: No Recent Infectious Disease Expo: No Immunizations Up To Date Tetanus Booster (TDap): Unknown Date of Pneumonia Vaccine: Jul 27, 2015 Date of Influenza Vaccine: Aug 19, 2018 Seasonal Allergies Seasonal Allergies: No Past Medical History Surgeries: Cardiac, CABG Currently Using CPAP: No Currently Using BIPAP: No Cardiac: Coronary Artery Disease, Heart Attack, High Cholesterol, Hypertension Neurological: Neuropathy, Stroke : No Reproductive: Yes (THICKENED ENDOMETRIUM) Sexually Transmitted Disease: No HIV/AIDS: No Female Reproductive Disorders: Denies Menopausal Gastrointestinal: Diverticulosis, Polyps Musculoskeletal: Degenerate Disk Disease, Arthritis, Chronic Back Pain Endocrine: Diabetes, Non-Insulin dep Loss of Vision: Bilateral Hearing Impairment: Denies Cancer: Skin Did You Recieve Any Treatments: No History of Blood Disorders: Yes (ANEMIA) Adverse Reaction to Blood [place]: No (N/A) Review of Systems Constitutional: no symptoms reported Physical Exam Physical Exam Vital Signs Capillary Refill : Less Than 3 Seconds Height, Weight, BMI Height: 5'7.00" Weight: 165lbs. 0.0oz. 74.110146ei; 25.8 BMI Method:Stated General Appearance: No Apparent Distress Results Results/Procedures Labs Patient resulted labs reviewed. Assessment/Plan Admission Diagnosis See short stay summary Admission Status: Observation Assessment and Plan See short stay summary Clinical Quality Measures DVT/VTE Risk/Contraindication: Risk Factor Score Per Nursin RFS Level Per Nursing on Admit: 2=Moderate KIRSTEN CABRAL MD Oct 19, 2018 11:15
--- NOTE | 2018-10-19 11:25 | Short Stay Summary-Hospitalist ---
History of Present Illness HPI/Chief Complaint The patient is a 67-year-old white female who the day before admission mall standing at the kitchen table became lightheaded and then passed out striking the left side of her for head. She reported no confusion and was likely only out for a matter of seconds according to her . There was no loss of bowel or bladder control. She noticed some pain and then reportedly slept for the next 18-20 hours. She's had 5 or 6 other syncopal episodes all while standing still over the past 6 months. Symptoms were aggravated after bypass surgery in March at which time she also went apparent bilateral iliac stent placement. Since that time she has had iron deficiency anemia felt to be due to GI bleed and is seen Dr. Bañuelos and has received IV iron last dose was last week in addition to B12 and is scheduled to see Dr. SORENSON on Saturday for endoscopy evaluation. She's had some intermittent melena denying bright red blood per rectum. Plavix was discontinued but she was still taking a baby aspirin daily. She has no reported known past history of peptic ulcer disease or GI bleeding. There is a family history for colon cancer in her father reportedly in his 30s. Her last colonoscopy was reportedly a year and a half ago revealing no evidence for neoplasia. She reports long-standing type II diabetes mellitus which is now insulin-requiring that dates back to her 30s or 40s she's not sure. She has multiple episodes of lightheadedness which are postural in etiology with associated fatigue to the point that she has been nearly housebound for at least the past month. Apparently other than recommendations increased salt in the distant continuation of hypertensive medication several months ago she has been on no other therapy for orthostatic hypotension which has been documented per her report on numerous occasions. As she reports no recent melena. She is adamant about discharge later today so as to make an appointment with Dr. Napier her cardiothoracic surgeon scheduled for tomorrow morning. Date Seen 10/19/18 Time Seen by a Provider: 07:30 Attending Physician Ketan Cabral MD PCP Jas Barnes MD Referring Physician Date of Admission Oct 18, 2018 at 20:30 Home Medications & Allergies Home Medications Reviewed patient Home Medication Reconciliation performed by pharmacy medication reconciliations claims technician and/or nursing. Patients Allergies have been reviewed. Allergies Allergies Coded Allergies latex (Verified Allergy, Unknown, HIVES, 10/04/17) nickel (Verified Allergy, Unknown, HIVES, 10/04/17) Past Ggnyets-Pirwyg-Wrgzml Hx Past Med/Social Hx: Reviewed and Corrections made Patient Social History Alcohol Use: Occasionally Uses Recreational Drug Use: No Smoking Status: Current Everyday Smoker (1 PPD) Former Smoker, Quit: March 26, 2018 Type Used: Cigarettes (1 PPD) Physical Abuse Screen: No Sexual Abuse: No Recent Foreign Travel: No Contact w/other who traveled: No Recent Hopitalizations: No Recent Infectious Disease Expo: No Immunizations Up To Date Tetanus Booster (TDap): Unknown Date of Pneumonia Vaccine: Jul 27, 2015 Date of Influenza Vaccine: Aug 19, 2018 Seasonal Allergies Seasonal Allergies: No Past Medical History Surgeries: Cardiac, CABG Currently Using CPAP: No Currently Using BIPAP: No Cardiac: Coronary Artery Disease, Heart Attack, High Cholesterol, Hypertension Neurological: Neuropathy, Stroke : No Reproductive: Yes (THICKENED ENDOMETRIUM) Sexually Transmitted Disease: No HIV/AIDS: No Female Reproductive Disorders: Denies Menopausal Gastrointestinal: Diverticulosis, Polyps Musculoskeletal: Degenerate Disk Disease, Arthritis, Chronic Back Pain Endocrine: Diabetes, Non-Insulin dep Loss of Vision: Bilateral Hearing Impairment: Denies Cancer: Skin Did You Recieve Any Treatments: No History of Blood Disorders: Yes (ANEMIA) Adverse Reaction to Blood [place]: No (N/A) Review of Systems Constitutional: see HPI Cardiovascular: see HPI; No chest pain, No edema; Hx of Intervention; No palpitations; syncope, vascular heart diseas; No other Physical Exam Physical Exam Vital Signs Vital Signs - First Documented 10/18/18 10/18/18 18:26 22:03 Temp 96.9 Pulse 108 Resp 20 B/P (MAP) 99/53 (68) Pulse Ox 95 O2 Delivery Nasal Cannula O2 Flow Rate 2.00 Capillary Refill : Less Than 3 Seconds Height, Weight, BMI Height: 5'7.00" Weight: 165lbs. 0.0oz. [id number]; 25.8 BMI Method:Stated General Appearance: No Apparent Distress, WD/WN HEENT: PERRL/EOMI Neck: Full Range of Motion, Normal Inspection, Non Tender, Supple; No Carotid Bruit, No JVD, No Limited Range of Motion, No Lymphadenopathy (L), No Lymphadenopathy (R), No Tender Lateral, No Tender Midline, No Thyromegaly, No Other Respiratory: Chest Non Tender, Lungs Clear, Normal Breath Sounds, No Accessory Muscle Use, No Respiratory Distress Cardiovascular: Regular Rate, Rhythm, No Edema, No Gallop, No JVD, No Murmur Gastrointestinal: Normal Bowel Sounds, No Organomegaly, No Pulsatile Mass, Non Tender, Soft Extremity: Normal Capillary Refill, Normal Inspection, Normal Range of Motion, Non Tender, No Calf Tenderness, No Pedal Edema Neurologic/Psychiatric: Alert, Oriented x3 Results Results/Procedures Labs Laboratory Tests 10/18/18 18:35 10/19/18 05:21 Patient resulted labs reviewed. Short Stay Diagnosis Discharge Diagnosis-Short Stay Admission Diagnosis 1. Syncope secondary to orthostatic hypotension suspect autonomic neuropathy from long-standing diabetes type II. Florinef has been initiated and the patient will be discharged on 0.1 mg every morning daily. She did was advised to continue liberalize salt intake and to obtain thigh-high PLACIDO hose. Discussed the importance of not standing motionless and to be cautious around getting up especially after meals. Advised she avoid large meals as this is likely to aggravate orthostasis. Also discussed that measured compression garments may do better than [id number] thigh-high compression garments and this can be discussed with Dr. Barnes. 2. Likely GI bleed hold aspirin as it is been little over 6 months since her stent placement and bypass surgery follow-up with Dr. SORENSON on Saturday for endoscopy to follow. I advised that she talk with Dr. SORENSON about only undergoing upper endoscopy first its higher yield considering she had colonoscopy a year and a half ago that was reportedly unremarkable. I'm also concerned that putting her through prep for colonoscopy will ultimately lead to syncope especially and tell Florinef has a chance to become maximally effective for her which may take a week or 2. 3. Anemia likely due to number 2. 4. Coronary artery disease post bypass surgery in March clinically stable. 5. Type II diabetes mellitus patient reports blood sugars have not been under good control. She is still drinking a can of soda a day and having well more than a portion of ice cream nightly she was advised to cut back on both of these issues and increase her Tresiba from 20 to 30 units at at bedtime. She can further discuss this with her manager grant for which she also has an appointment in the next week or 2. Final Discharge Diagnosis See admission diagnosis Conclusion Plan The patient was started on IV fluids and received a dose of Florinef initially 0.2 mg. She is being discharged on 0.1 mg daily with instructions to wear PLACIDO hose. She had improvement in orthostatic blood pressures upon her discharge but again we also discussed the importance of not standing motionless for any length of time and being careful about not getting up quickly sitting on the edge of the bed or chair with legs down for a minute etc. The cortisol level was checked random a.m. although Shinglehouse's disease is favored to be less likely than autonomic neuropathy from long-standing likely poorly controlled diabetes. Clinical Quality Measures DVT/VTE Risk/Contraindication: Risk Factor Score Per Nursin RFS Level Per Nursing on Admit: 2=Moderate Copy Copies To 1: OLIVIA SORENSON MD Copies To 2: VIJAY ATKINS MARK D MD Oct 19, 2018 11:25
[2018-10-19] MEDS ORDERED: INSU100I32 SQ (11:33)
[2018-10-19] MEDS ORDERED: ROSUVASTATIN 20 MG (CRESTOR) TABLET PO SCH (21:00)
== END 2018-10-19 15:15 | disposition home or self-care (01) | DRG 74 ==
LOC: EDUNIT# 18:09 → ER 18:11 → 4TH 20:30
PROVIDERS: ADMIT Internal Medicine; ATTEND Internal Medicine
DX: E11.43 Type 2 diabetes mellitus with diabetic autonomic (poly)neuropathy (principal); I95.1 Orthostatic hypotension; D50.0 Iron deficiency anemia secondary to blood loss (chronic); K92.2 Gastrointestinal hemorrhage, unspecified; E86.0 Dehydration; E83.42 Hypomagnesemia; E11.65 Type 2 diabetes mellitus with hyperglycemia; I73.9 Peripheral vascular disease, unspecified; I25.10 Atherosclerotic heart disease of native coronary artery without angina pectoris; I10 Essential (primary) hypertension; E78.00 Pure hypercholesterolemia, unspecified; S09.8XXA Other specified injuries of head, initial encounter; W18.00XA Striking against unspecified object with subsequent fall, initial encounter; Y92.010 Kitchen of single-family (private) house as the place of occurrence of the external cause; I25.2 Old myocardial infarction; Z95.820 Peripheral vascular angioplasty status with implants and grafts; Z79.82 Long term (current) use of aspirin; Z79.4 Long term (current) use of insulin; Z87.891 Personal history of nicotine dependence; Z95.1 Presence of aortocoronary bypass graft; Z80.0 Family history of malignant neoplasm of digestive organs
CPT/HCPCS: 36415; 70450; 71045; 72125; 74176; 80053; 81000; 82274; 82533; 82962; 83690; 83735; 83880; 84484; 85007; 85025; 85027; 85610; 85730; 86850; 86900; 86901; 86920; 93005; 93041; 96361; 96365; 96375

== ENCOUNTER 2018-10-27 05:50 | Outpatient (CLI) | payer MEDICARE, OTHER ==
[~2018-10-27] VITALS: Ht 170.2 cm; Wt 74.8 kg
[~2018-10-27 05:50] MED LIST changes: +INSU100I32 SQ
[2018-10-27] MEDS ORDERED: ASPI-586 PO (13:19)
[2018-10-27] MEDS ORDERED: METF-399 PO (13:19)
[2018-10-27] MEDS ORDERED: PANT40TA3 PO (13:19)
[2018-10-27] MEDS ORDERED: INSU100I32 SQ (13:19)
[2018-10-27] MEDS ORDERED: INSU100I14 SQ (13:21)
== END 2018-10-27 13:34 | disposition home or self-care (01) ==
LOC: PREOP 05:50
PROVIDERS: ATTEND Surgery
DX: Z01.818 Encounter for other preprocedural examination (principal)

== ENCOUNTER 2018-10-31 11:24 | Day surgery (SDC) | payer MEDICARE, OTHER ==
[~2018-10-31] VITALS: Ht 170.2 cm; Wt 74.8 kg
[~2018-10-31 11:24] MED LIST changes: +ASPI-586 PO; +INSU100I14 SQ; +METF-399 PO; +PANT40TA3 PO
--- OUTSIDE RECORDS SUMMARY | 2018-10-31 11:29 | XMS REPORT | Continuity of Care Document ---
Author Author [facility] Organization [facility] Address Unknown Phone Unavailable Allergies Active Description Code Type Severity Reaction Onset Reported/Identified Relationship to Patient Clinical Status Yes No Allergy Information Available [id number] Drug Allergy Unknown N/A 2015 Yes latex [id number] Drug Allergy Unknown HIVES 10/04/2017 Yes nickel [id number] Drug Allergy Unknown HIVES 10/04/2017 Medications There [...] ATKINS Ot I25.10 ATHSCL HEART DISEASE OF [place] CORONARY 10/17/1355 VIJAY ATKINS Ot I73.9 PERIPHERAL VASCULAR DISEASE, UNSPECIFIED 10/17/1355 VIJAY ATKINS Ot R42 DIZZINESS AND GIDDINESS 10/17/1355 VIJAY ATKINS Ot Z79.4 CONTOUR STITCHER (CURRENT) USE OF INSULIN 10/17/1355 VIJAY ATKINS Ot Z79.899 OTHER USP (CURRENT) DRUG THERAPY 10/17/1355 VIJAY ATKINS Ot Z95.1 PRESENCE OF AORTOCORONARY BYPASS GRAFT 10/17/1355 VIJAY ATKINS Ot Z95.820 PERIPHERAL VASCULAR ANGIOPLASTY STATUS W 07/24/2008 Ot 250.00 07/24/2008 Ot 311 07/24/2008 Ot 327.23 07/24/2008 Ot 401.9 07/24/2008 Ot 414.00 07/24/2008 Ot V12.59 02/14/2016 Ot 397.0 02/14/2016 Ot 401.9 02/14/2016 [...] 02/21/2016 Ot 786.50 02/21/2016 Ot 793.2 02/22/2016 SANTANA-VANDANA PA, PRAVEEN K Ot E11.9 02/22/2016 SANTANA-VANDANA [...] SANTANA-VANDANA PA, PRAVEEN K Ot E11.9 02/28/2016 PRAVEEN VILLAVICENCIO Ot E78.2 02/28/2016 PRAVEEN VILLAVICENCIO Ot I10 02/28/2016 PRAVEEN VILLAVICENCIO Ot I25.10 02/29/2016 GERSON BARKER, PHYLLIS Morales Ot I65.23 03/04/2016 PRAVEEN VILLAVICENCIO Ot E11.9 TYPE 2 DIABETES MELLITUS WITHOUT COMPLIC 03/04/2016 PRAVEEN VILLAVICENCIO Ot E78.2 MIXED HYPERLIPIDEMIA 03/04/2016 PRAVEEN VILLAVICENCIO Ot I10 ESSENTIAL (PRIMARY) HYPERTENSION 03/04/2016 PRAVEEN VILLAVICENCIO Ot I25.10 ATHSCL HEART DISEASE OF [place] CORONARY 03/07/2016 PRAVEEN VILLAVICENCIO Ot E11.9 TYPE 2 DIABETES MELLITUS WITHOUT COMPLIC 03/07/2016 PRAVEEN VILLAVICENCIO Ot E78.2 MIXED HYPERLIPIDEMIA 03/07/2016 PRAVEEN VILLAVICENCIO Ot I10 ESSENTIAL (PRIMARY) HYPERTENSION 03/07/2016 PRAVEEN VILLAVICENCIO Ot I25.10 ATHSCL HEART DISEASE OF [place] CORONARY 03/15/2016 PRAVEEN VILLAVICENCIO Ot E11.9 TYPE 2 DIABETES MELLITUS WITHOUT COMPLIC 03/15/2016 PRAVEEN VILLAVICENCIO Ot E78.2 MIXED HYPERLIPIDEMIA 03/15/2016 PRAVEEN VILLAVICENCIO Ot I10 ESSENTIAL (PRIMARY) HYPERTENSION 03/15/2016 PRAVEEN VILLAVICENCIO Ot I25.10 ATHSCL HEART DISEASE OF [place] CORONARY 08/06/2017 Ot 397.0 TRICUSPID VALVE DISEASE [...] VILLAVICENCIO Ot I25.10 ATHSCL HEART DISEASE OF [place] CORONARY 09/04/2017 UDAY SALAZAR MD R Ot [...] HISTORY OF COLONIC POLYPS 09/18/2017 OLIVIA SORENSON MD Ot D12.2 BENIGN NEOPLASM OF ASCENDING COLON 09/18/2017 OLIVIA SORENSON MD, Ot D12.3 BENIGN NEOPLASM OF TRANSVERSE COLON 09/18/2017 OLIVIA SORENSON MD Ot E11.42 TYPE 2 DIABETES MELLITUS WITH DIABETIC P 09/18/2017 OLIVIA SORENSON MD, Ot I25.10 ATHSCL HEART DISEASE OF [place] CORONARY 09/18/2017 OLIVIA SORENSON MD, Ot K57.30 DVRTCLOS OF LG INT W/O PERFORATION OR AB 09/18/2017 OLIVIA SORENSON MD, Ot K64.1 SECOND DEGREE HEMORRHOIDS 09/18/2017 OLIVIA SORENSON MD, Ot Z12.11 ENCOUNTER FOR SCREENING FOR MALIGNANT NE 09/18/2017 OLIVIA SORENSON MD, Ot Z79.84 USP (CURRENT) USE OF ORAL HYPOGLYC 09/18/2017 OLIVIA SORENSON MD, Ot Z79.899 OTHER USP (CURRENT) DRUG THERAPY 09/18/2017 OLIVIA SORENSON MD, [...] MD, Ot I25.10 ATHSCL HEART DISEASE OF [place] CORONARY 09/20/2017 OLIVIA SORENSON MD, Ot K57.30 DVRTCLOS OF LG INT W/O PERFORATION OR AB 09/20/2017 OLIVIA SORENSON MD, Ot K64.1 SECOND DEGREE HEMORRHOIDS 09/20/2017 OLIVIA SORENSON MD, Ot Z12.11 ENCOUNTER FOR SCREENING FOR MALIGNANT NE 09/20/2017 OLIVIA SORENSON MD, Ot Z79.84 CONTOUR STITCHER (CURRENT) USE OF ORAL HYPOGLYC 09/20/2017 OLIVIA SORENSON MD, Ot Z79.899 OTHER USP (CURRENT) DRUG THERAPY 09/20/2017 OLIVIA SORENSON MD, Ot Z80.0 FAMILY HISTORY OF MALIGNANT NEOPLASM OF 09/20/2017 OLIVIA SORENSON MD, Ot Z86.010 PERSONAL HISTORY OF COLONIC POLYPS 09/20/2017 OLIVIA SORENSON MD, Ot Z86.73 PRSNL HX OF TIA (TIA), AND CEREB INFRC W 10/04/2017 JOHN CRUZ DO Ot R93.8 ABNORMAL FINDINGS ON DIAGNOSTIC IMAGING 10/04/2017 JOHN CRUZ DO Ot Z01.818 ENCOUNTER FOR OTHER PREPROCEDURAL EXAMIN 10/07/2017 JOHN CRUZ DO Ot R93.8 ABNORMAL FINDINGS ON DIAGNOSTIC IMAGING 10/07/2017 JOHN CRUZ DO Ot Z01.818 ENCOUNTER FOR OTHER PREPROCEDURAL EXAMIN 10/11/2017 MARTIN BARKER, UDAY Brown Ot D13.5 BENIGN [...] MONONEUROPATHY OF BILATERAL 10/11/2017 JOHN CRUZ DO Ot I10 ESSENTIAL (PRIMARY) HYPERTENSION 10/11/2017 JOHN CRUZ DO Ot I25.10 ATHSCL HEART DISEASE OF [place] CORONARY 10/11/2017 JOHN CRUZ DO Ot N81.10 CYSTOCELE, UNSPECIFIED 10/11/2017 JOHN CRUZ DO Ot N81.6 RECTOCELE 10/11/2017 JOHN CRUZ DO Ot R93.8 ABNORMAL FINDINGS ON DIAGNOSTIC IMAGING 10/11/2017 JOHN CRUZ DO Ot Z78.0 ASYMPTOMATIC MENOPAUSAL STATE 10/11/2017 JOHN CRUZ DO Ot Z79.02 USP (CURRENT) USE OF ANTITHROMBOTI 10/11/2017 JOHN CRUZ DO Ot Z79.4 CONTOUR STITCHER (CURRENT) USE OF INSULIN 10/11/2017 JOHN CRUZ DO Ot Z79.899 OTHER USP (CURRENT) DRUG THERAPY 10/11/2017 JOHN CRUZ DO [...] Ot 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 10/30/2017 NANCY RODRIGUEZ JOHN Pauline Ot I10 ESSENTIAL (PRIMARY) HYPERTENSION 10/30/2017 NANCY RODRIGUEZ JOHN Carpenter Ot I25.10 ATHSCL HEART DISEASE OF [place] CORONARY 10/30/2017 NANCY RODRIGUEZ JOHN Carpenter Ot N81.10 CYSTOCELE, UNSPECIFIED 10/30/2017 NANCY RODRIGUEZJOHN Ot N81.6 RECTOCELE 10/30/2017 NANCY RODRIGUEZ JOHN Carpenter Ot R93.8 ABNORMAL FINDINGS ON DIAGNOSTIC IMAGING 10/30/2017 NANCY RODRIGUEZ JOHN Carpenter Ot Z78.0 ASYMPTOMATIC MENOPAUSAL STATE 10/30/2017 NANCY RODRIGUEZ JOHN Carpenter Ot Z79.02 CONTOUR STITCHER (CURRENT) USE OF ANTITHROMBOTI 10/30/2017 NANCY RODRIGUEZJOHN Ot Z79.4 USP (CURRENT) USE OF INSULIN 10/30/2017 NANCY RODRIGUEZ JOHN Carpenter Ot Z79.899 OTHER CONTOUR STITCHER (CURRENT) DRUG THERAPY 10/30/2017 NANCY RODRIGUEZ JOHN Carpenter Ot Z86.73 PRSNL HX OF TIA (TIA), AND CEREB INFRC W 02/13/2018 MARTIN BARKER, UDAY Brown Ot 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 02/13/2018 UDAY SALAZAR MD Ot R16.0 HEPATOMEGALY, NOT ELSEWHERE CLASSIFIED 02/21/2018 PHYLLIS NIETO MD Ot E11.9 TYPE 2 DIABETES MELLITUS WITHOUT COMPLIC 02/21/2018 PHYLLIS NIETO MD Ot E78.5 HYPERLIPIDEMIA, UNSPECIFIED 02/21/2018 PHYLLIS NIETO MD Ot I10 ESSENTIAL (PRIMARY) HYPERTENSION 02/21/2018 PHYLLIS NIETO MD Ot I25.10 ATHSCL HEART DISEASE OF [place] CORONARY 02/21/2018 PHYLLIS NIETO MD Ot Z72.0 TOBACCO USE 02/25/2018 PHYLLIS NIETO MD Ot E11.9 TYPE 2 DIABETES MELLITUS WITHOUT COMPLIC 02/25/2018 PHYLLIS NIETO MD Ot E78.5 HYPERLIPIDEMIA, UNSPECIFIED 02/25/2018 PHYLLIS NIETO MD Ot I10 ESSENTIAL (PRIMARY) HYPERTENSION 02/25/2018 PHYLLIS NIETO MD Ot I25.10 ATHSCL HEART DISEASE OF [place] CORONARY 02/25/2018 PHYLLIS NIETO MD Ot Z72.0 TOBACCO USE 03/04/2018 PHYLLIS NIETO MD Ot E11.9 TYPE 2 DIABETES MELLITUS WITHOUT COMPLIC 03/04/2018 PHYLLIS NIETO MD Ot E78.5 HYPERLIPIDEMIA, UNSPECIFIED 03/04/2018 PHYLLIS NIETO MD Ot I10 ESSENTIAL (PRIMARY) HYPERTENSION 03/04/2018 PHYLLIS NIETO MD Ot I25.10 ATHSCL HEART DISEASE OF [place] CORONARY 03/04/2018 PHYLLIS NIETO MD Ot Z72.0 TOBACCO USE 03/05/2018 PHYLLIS NIETO MD Ot E11.9 TYPE 2 DIABETES MELLITUS WITHOUT COMPLIC 03/05/2018 PHYLLIS NIETO MD Ot E78.5 HYPERLIPIDEMIA, UNSPECIFIED 03/05/2018 PHYLLIS NIETO MD Ot F17.210 NICOTINE DEPENDENCE, CIGARETTES, UNCOMPL 03/05/2018 PHYLLIS NIETO MD Ot I10 ESSENTIAL (PRIMARY) HYPERTENSION 03/05/2018 PHYLLIS NIETO MD Ot I25.10 ATHSCL HEART DISEASE OF [place] CORONARY 03/05/2018 PHYLLIS NIETO MD Ot I65.23 [...] MD Ot I25.10 ATHSCL HEART DISEASE OF [place] CORONARY 03/06/2018 PHYLLIS NIETO MD Ot I65.23 OCCLUSION AND STENOSIS OF BILATERAL PAINTER 03/06/2018 PHYLLIS NIETO MD Ot I73.9 PERIPHERAL VASCULAR DISEASE, UNSPECIFIED 03/06/2018 PHYLLIS NIETO MD Ot Z86.73 PRSNL HX OF TIA (TIA), AND CEREB INFRC W 04/10/2018 VIOLA BARKER, AALN Ot I25.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 04/10/2018 ALAN ROD MD Ot J90 PLEURAL EFFUSION, NOT ELSEWHERE CLASSIFI 04/21/2018 ALAN ROD MD Ot I25.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 04/21/2018 ALAN ROD MD, Ot J90 PLEURAL EFFUSION, NOT ELSEWHERE CLASSIFI 05/01/2018 CRISTELA DO, MIKEY K Ot R42 DIZZINESS AND GIDDINESS 05/01/2018 CRISTELA DO, MIKEY K Ot W19.XXXA UNSPECIFIED FALL, INITIAL ENCOUNTER 05/01/2018 CRISTELA DO, MIKEY K Ot Y92.[address] IN [facility] NON[facility] (PRIVATE 05/05/2018 CRISTELA DO, MIKEY K Ot R42 DIZZINESS AND GIDDINESS 05/05/2018 CRISTELA DO, MIKEY K Ot W19.XXXA UNSPECIFIED FALL, INITIAL ENCOUNTER 05/05/2018 CRISTELA DO, MIKEY K Ot Y92.[address] IN [facility] NON[facility] (PRIVATE 05/13/2018 PHYLLIS NIETO MD Ot E78.5 HYPERLIPIDEMIA, UNSPECIFIED 05/13/2018 PHYLLIS NIETO MD Ot 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AL AND T 05/13/2018 PHYLLIS NIETO MD Ot I10 ESSENTIAL (PRIMARY) HYPERTENSION 05/13/2018 PHYLLIS NIETO MD Ot I25.10 ATHSCL HEART DISEASE OF [place] CORONARY 05/13/2018 PHYLLIS NIETO MD Ot R07.9 CHEST PAIN, UNSPECIFIED 05/13/2018 PHYLLIS NIETO MD Ot Z72.0 TOBACCO USE 05/13/2018 PHYLLIS NIETO MD Ot E78.5 HYPERLIPIDEMIA, UNSPECIFIED 05/13/2018 PHYLLIS NIETO MD Ot 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 AND T 05/13/2018 PHYLLIS NIETO MD Ot I10 ESSENTIAL (PRIMARY) HYPERTENSION 05/13/2018 PHYLLIS NIETO MD Ot I25.10 ATHSCL HEART DISEASE OF [place] CORONARY 05/13/2018 PHYLLIS NIETO MD Ot R07.9 CHEST PAIN, UNSPECIFIED 05/13/2018 PHYLLIS NIETO MD Ot Z72.0 TOBACCO USE 05/16/2018 PHYLLIS NIETO MD Ot D64.9 ANEMIA, UNSPECIFIED 05/19/2018 PHYLLIS NITEO MD Ot D64.9 ANEMIA, UNSPECIFIED 05/21/2018 PHYLLIS NIETO MD Ot D64.9 ANEMIA, UNSPECIFIED 05/22/2018 PHYLLIS NIETO MD Ot E78.5 HYPERLIPIDEMIA, UNSPECIFIED 05/22/2018 PHYLLIS NIETO MD Ot 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[place] AND T 05/22/2018 PHYLLIS NIETO MD Ot I10 ESSENTIAL (PRIMARY) HYPERTENSION 05/22/2018 PHYLLIS NIETO MD Ot I25.10 ATHSCL HEART DISEASE OF [place] CORONARY 05/22/2018 PHYLLIS NIETO MD Ot R07.9 CHEST PAIN, UNSPECIFIED 05/22/2018 PHYLLIS NIETO MD Ot Z72.0 TOBACCO USE 05/28/2018 PHYLLIS NIETO MD Ot D64.9 ANEMIA, UNSPECIFIED 06/02/2018 VIJAY ATKINS Ot D64.9 ANEMIA, UNSPECIFIED 06/02/2018 VIJAY ATKINS Ot 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 AUTONOMIC (PO 06/02/2018 VIJAY ATKINS Ot E78.5 HYPERLIPIDEMIA, UNSPECIFIED 06/02/2018 VIJAY ATKINS Ot F17.210 NICOTINE DEPENDENCE, CIGARETTES, UNCOMPL 06/02/2018 VIJAY ATKINS Ot I10 ESSENTIAL (PRIMARY) HYPERTENSION 06/02/2018 VIJAY ATKINS Ot I25.10 ATHSCL HEART DISEASE OF [place] CORONARY 06/02/2018 VIJAY ATKINS Ot I73.9 PERIPHERAL VASCULAR DISEASE, UNSPECIFIED 06/02/2018 VIJAY ATKINS Ot R42 DIZZINESS AND GIDDINESS 06/02/2018 VIJAY ATKINS Ot Z79.4 CONTOUR STITCHER (CURRENT) USE OF INSULIN 06/02/2018 VIJAY ATKINS Ot Z79.899 OTHER USP (CURRENT) DRUG THERAPY 06/02/2018 VIJAY ATKINS Ot Z95.1 PRESENCE OF AORTOCORONARY BYPASS GRAFT 06/02/2018 VIJAY ATKINS Ot Z95.820 PERIPHERAL VASCULAR ANGIOPLASTY STATUS W 06/09/2018 WILBERT, BOBAN N Ot D64.9 ANEMIA, UNSPECIFIED 06/09/2018 WILBERT, ROHINIAN N Ot 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 AUTONOMIC (PO 06/09/2018 WILBERT, ROHINIAN N Ot E78.5 HYPERLIPIDEMIA, UNSPECIFIED 06/09/2018 WILBERT, BOBAN N Ot F17.210 NICOTINE DEPENDENCE, CIGARETTES, UNCOMPL 06/09/2018 WILBERT, BOBAN N Ot I10 ESSENTIAL (PRIMARY) HYPERTENSION 06/09/2018 WILBERT, ROHINIAN N Ot I25.10 ATHSCL HEART DISEASE OF [place] CORONARY 06/09/2018 WILBERT BOBSHREYA N Ot I73.9 PERIPHERAL VASCULAR DISEASE, UNSPECIFIED 06/09/2018 WILBERTVIJAY N Ot R42 DIZZINESS AND GIDDINESS 06/09/2018 WILBERT BOBSHREYA N Ot Z79.4 USP (CURRENT) USE OF INSULIN 06/09/2018 VIJAY ATKINS N Ot Z79.899 OTHER CONTOUR STITCHER (CURRENT) DRUG THERAPY 06/09/2018 VIJAY ATKINS N Ot Z95.1 PRESENCE OF AORTOCORONARY BYPASS GRAFT 06/09/2018 VIJAY ATKINS N Ot Z95.820 PERIPHERAL VASCULAR ANGIOPLASTY STATUS W 07/04/2018 Ot E11.9 TYPE 2 DIABETES MELLITUS WITHOUT COMPLIC 07/04/2018 Ot E78.5 HYPERLIPIDEMIA, UNSPECIFIED 07/04/2018 Ot I10 ESSENTIAL ( PRIMARY) HYPERTENSION 07/04/2018 Ot I25.10 ATHSCL HEART DISEASE OF [place] CORONARY 07/17/2018 WILBERT VIJAY N Ot D64.9 ANEMIA, UNSPECIFIED 07/17/2018 WILBERT, VIJAY N Ot 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 AUTONOMIC (PO 07/17/2018 WILBERT, ROHINIAN N Ot E78.5 HYPERLIPIDEMIA, UNSPECIFIED 07/17/2018 WILBERT, ROHINIAN N Ot F17.210 NICOTINE DEPENDENCE, CIGARETTES, UNCOMPL 07/17/2018 WILBERT, BOBAN N Ot I10 ESSENTIAL (PRIMARY) HYPERTENSION 07/17/2018 WILBERT BOBAN N Ot I25.10 ATHSCL HEART DISEASE OF [place] CORONARY 07/17/2018 WILBERTVIJAY N Ot I73.9 PERIPHERAL VASCULAR DISEASE, UNSPECIFIED 07/17/2018 WILBERTVIJAY N Ot R42 DIZZINESS AND GIDDINESS 07/17/2018 VIJAY ATKINS N Ot Z79.4 CONTOUR STITCHER (CURRENT) USE OF INSULIN 07/17/2018 WILBERT, ROHINIAN N Ot Z79.899 OTHER USP (CURRENT) DRUG THERAPY 07/17/2018 WILBERT, BOBAN N Ot Z95.1 PRESENCE OF AORTOCORONARY BYPASS GRAFT 07/17/2018 WILBERT, BOBAN N Ot Z95.820 PERIPHERAL VASCULAR ANGIOPLASTY STATUS W 07/18/2018 WILBERT BOBAN N Ot D64.9 ANEMIA, UNSPECIFIED 07/18/2018 WILBERT, BOBAN N Ot 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 AUTONOMIC (PO 07/18/2018 WILBERT, BOBAN N Ot E78.5 HYPERLIPIDEMIA, UNSPECIFIED 07/18/2018 WILBERT, BOBAN N Ot F17.210 NICOTINE DEPENDENCE, CIGARETTES, UNCOMPL 07/18/2018 WILBERT, BOBAN N Ot I10 ESSENTIAL (PRIMARY) HYPERTENSION 07/18/2018 WILBERT, BOBAN N Ot I25.10 ATHSCL HEART DISEASE OF [place] CORONARY 07/18/2018 WILBERT, BOBAN N Ot I73.9 PERIPHERAL VASCULAR DISEASE, UNSPECIFIED 07/18/2018 WILBERT, BOBAN N Ot R42 DIZZINESS AND GIDDINESS 07/18/2018 WILBERT, BOBSHREYA N Ot Z79.4 CONTOUR STITCHER (CURRENT) USE OF INSULIN 07/18/2018 WILBERT, ROHINIAN N Ot Z79.899 OTHER CONTOUR STITCHER (CURRENT) DRUG THERAPY 07/18/2018 WILBERT, BOBAN N Ot Z95.1 PRESENCE OF AORTOCORONARY BYPASS GRAFT 07/18/2018 WILBERT, BOBSHREYA N Ot Z95.820 PERIPHERAL VASCULAR ANGIOPLASTY STATUS W 07/18/2018 WILBERT BOBAN N Ot D64.9 ANEMIA, UNSPECIFIED 07/18/2018 WILBERT, BOBAN N Ot 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 AUTONOMIC (PO 07/18/2018 WILBERT, BOBAN N Ot E78.5 HYPERLIPIDEMIA, UNSPECIFIED 07/18/2018 WILBERT, BOBAN N Ot F17.210 NICOTINE DEPENDENCE, CIGARETTES, UNCOMPL 07/18/2018 WILBERT, BOBAN N Ot I10 ESSENTIAL (PRIMARY) HYPERTENSION 07/18/2018 WILBERT, BOBAN N Ot I25.10 ATHSCL HEART DISEASE OF [place] CORONARY 07/18/2018 WILBERT, BOBAN N Ot I73.9 PERIPHERAL VASCULAR DISEASE, UNSPECIFIED 07/18/2018 WILBERT, BOBAN N Ot R42 DIZZINESS AND GIDDINESS 07/18/2018 VIJAY ATKINS N Ot Z79.4 CONTOUR STITCHER (CURRENT) USE OF INSULIN 07/18/2018 VIJAY ATKINS N Ot Z79.899 OTHER CONTOUR STITCHER (CURRENT) DRUG THERAPY 07/18/2018 VIJAY ATKINS N Ot Z95.1 PRESENCE OF AORTOCORONARY BYPASS GRAFT 07/18/2018 WILBERT ROHINISHREYA Derrick Ot Z95.820 PERIPHERAL VASCULAR ANGIOPLASTY STATUS W 08/14/2018 Ot D50.0 IRON 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 08/14/2018 Ot E11.9 TYPE 2 DIABETES MELLITUS WITHOUT COMPLIC 08/14/2018 Ot E78.5 HYPERLIPIDEMIA, UNSPECIFIED 08/14/2018 Ot I10 ESSENTIAL ( PRIMARY) HYPERTENSION 08/14/2018 Ot I25.10 ATHSCL HEART DISEASE OF [place] CORONARY 08/19/2018 VIJAY ATKINS Derrick Ot D64.9 ANEMIA, UNSPECIFIED 08/19/2018 WILBERT, ROHINISHREYA Derrick Ot 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 AUTONOMIC (PO 08/19/2018 VIJAY ATKINS Derrick Ot E78.5 HYPERLIPIDEMIA, UNSPECIFIED 08/19/2018 VIJAY ATKINS N Ot F17.210 NICOTINE DEPENDENCE, CIGARETTES, UNCOMPL 08/19/2018 VIJAY ATKINS N Ot I10 ESSENTIAL (PRIMARY) HYPERTENSION 08/19/2018 VIJAY ATKINS Derrick Ot I25.10 ATHSCL HEART DISEASE OF [place] CORONARY 08/19/2018 VIJAY ATKINS Derrick Ot I73.9 PERIPHERAL VASCULAR DISEASE, UNSPECIFIED 08/19/2018 WILBERTROHINISHREYA Derrick Ot R42 DIZZINESS AND GIDDINESS 08/19/2018 WILBERT VIJAY Derrick Ot Z79.4 CONTOUR STITCHER (CURRENT) USE OF INSULIN 08/19/2018 VIJAY ATKINS N Ot Z79.899 OTHER CONTOUR STITCHER (CURRENT) DRUG THERAPY 08/19/2018 WILBERT VIJAY N Ot Z95.1 PRESENCE OF AORTOCORONARY BYPASS GRAFT 08/19/2018 WILBERTROHINISHREYA N Ot Z95.820 PERIPHERAL VASCULAR ANGIOPLASTY STATUS W 08/20/2018 Ot D50.0 IRON 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 08/20/2018 Ot D50.0 IRON 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 08/20/2018 Ot E11.9 TYPE 2 DIABETES MELLITUS WITHOUT COMPLIC 08/20/2018 Ot E78.5 HYPERLIPIDEMIA, UNSPECIFIED 08/20/2018 Ot I10 ESSENTIAL ( PRIMARY) HYPERTENSION 08/20/2018 Ot I25.10 ATHSCL HEART DISEASE OF [place] CORONARY 08/28/2018 Ot D50.0 IRON 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 09/29/2018 UDAY SALAZAR MD Ot 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 09/29/2018 UDAY SALAZAR MD Ot R16.0 HEPATOMEGALY, NOT ELSEWHERE CLASSIFIED 09/29/2018 PHYLLIS NIETO MD Ot E11.9 TYPE 2 DIABETES MELLITUS WITHOUT COMPLIC 09/29/2018 PHYLLIS NIETO MD Ot E78.5 HYPERLIPIDEMIA, UNSPECIFIED 09/29/2018 PHYLLIS NIETO MD Ot I10 ESSENTIAL (PRIMARY) HYPERTENSION 09/29/2018 PHYLLIS NIETO MD Ot I25.10 ATHSCL HEART DISEASE OF [place] CORONARY 09/29/2018 PHYLLIS NIETO MD Ot Z72.0 TOBACCO USE 09/29/2018 ALAN ROD MD Ot I25.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 09/29/2018 ALAN ROD MD, Ot J90 PLEURAL EFFUSION, NOT ELSEWHERE CLASSIFI 09/29/2018 PHYLLIS NIETO MD Ot E78.5 HYPERLIPIDEMIA, UNSPECIFIED 09/29/2018 PHYLLIS NIETO MD Ot 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AL AND T 09/29/2018 PHYLLIS NIETO MD Ot I10 ESSENTIAL (PRIMARY) HYPERTENSION 09/29/2018 PHYLLIS NIETO MD Ot I25.10 ATHSCL HEART DISEASE OF [place] CORONARY 09/29/2018 PHYLLIS NIETO MD Ot R07.9 CHEST PAIN, UNSPECIFIED 09/29/2018 PHYLLIS NIETO MD Ot Z72.0 TOBACCO USE 09/29/2018 PHYLLIS NIETO MD Ot D64.9 ANEMIA, UNSPECIFIED 09/29/2018 Ot D50.0 IRON 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 09/29/2018 Ot E11.9 TYPE 2 DIABETES MELLITUS WITHOUT COMPLIC 09/29/2018 Ot E78.5 HYPERLIPIDEMIA, UNSPECIFIED 09/29/2018 Ot I10 ESSENTIAL ( PRIMARY) HYPERTENSION 09/29/2018 Ot I25.10 ATHSCL HEART DISEASE OF [place] CORONARY 09/29/2018 VIJAY ATKINS N Ot D64.9 ANEMIA, UNSPECIFIED 09/29/2018 VIJAY ATKINS N Ot 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 AUTONOMIC (PO 09/29/2018 VIJAY ATKINS N Ot E78.5 HYPERLIPIDEMIA, UNSPECIFIED 09/29/2018 VIJAY ATKINS N Ot F17.210 NICOTINE DEPENDENCE, CIGARETTES, UNCOMPL 09/29/2018 VIJAY ATKINS N Ot I10 ESSENTIAL (PRIMARY) HYPERTENSION 09/29/2018 VIJAY ATKINS N Ot I25.10 ATHSCL HEART DISEASE OF [place] CORONARY 09/29/2018 VIJAY ATKINS N Ot I73.9 PERIPHERAL VASCULAR DISEASE, UNSPECIFIED 09/29/2018 VIJAY ATKINS N Ot R42 DIZZINESS AND GIDDINESS 09/29/2018 VIJAY ATKINS N Ot Z79.4 USP (CURRENT) USE OF INSULIN 09/29/2018 VIJAY ATKINS N Ot Z79.899 OTHER CONTOUR STITCHER (CURRENT) DRUG THERAPY 09/29/2018 VIJAY ATKINS N Ot Z95.1 PRESENCE OF AORTOCORONARY BYPASS GRAFT 09/29/2018 VIJAY ATKINS N Ot Z95.820 PERIPHERAL VASCULAR ANGIOPLASTY STATUS W 10/19/2018 YEIMY BARKER, KIRSTEN Potts Ot D50.0 IRON 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 10/19/2018 YEIMY BARKER, KIRSTEN Potts Ot 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 AUTONOMIC (PO 10/19/2018 YEIMY BARKER, KIRSTEN Potts Ot E11.65 TYPE 2 DIABETES MELLITUS WITH HYPERGLYCE 10/19/2018 YEIMY BARKER, KIRSTEN Potts Ot E78.00 PURE HYPERCHOLESTEROLEMIA, UNSPECIFIED 10/19/2018 YEIMY BARKER, KIRSTEN Potts Ot E83.42 HYPOMAGNESEMIA 10/19/2018 KIRSTEN GAFFNEY MD Ot E86.0 DEHYDRATION 10/19/2018 KIRSTEN GAFFNEY MD Ot I10 ESSENTIAL (PRIMARY) HYPERTENSION 10/19/2018 YEIMY BARKER, KIRSTEN Potts Ot I25.10 ATHSCL HEART DISEASE OF [place] CORONARY 10/19/2018 KIRSTEN GAFFNEY MD Ot I25.2 OLD MYOCARDIAL INFARCTION 10/19/2018 YEIMY BARKER, KIRSTEN Potts Ot I73.9 PERIPHERAL VASCULAR DISEASE, UNSPECIFIED 10/19/2018 YEIMY BARKER, KIRSTEN Potts Ot I95.1 ORTHOSTATIC HYPOTENSION 10/19/2018 KIRSTEN GAFFNEY MD Ot K92.2 GASTROINTESTINAL HEMORRHAGE, UNSPECIFIED 10/19/2018 KIRSTEN GAFFNEY MD Ot S09.8XXA OTHER SPECIFIED INJURIES OF HEAD, INITIA 10/19/2018 KIRSTEN GAFFNEY MD Ot W18.00XA STRIKING AGAINST UNSP OBJECT W SUBSEQUEN 10/19/2018 KIRSTEN GAFFNEY MD Ot Y92.010 KITCHEN OF SINGLE-FAMILY (PRIVATE) HOUSE 10/19/2018 KIRSTEN GAFFNEY MD Ot Z79.4 CONTOUR STITCHER (CURRENT) USE OF INSULIN 10/19/2018 KIRSTEN GAFFNEY MD Ot Z79.82 USP (CURRENT) USE OF ASPIRIN 10/19/2018 KIRSTEN GAFFNEY MD Ot Z80.0 FAMILY HISTORY OF MALIGNANT NEOPLASM OF 10/19/2018 KIRSTEN GAFFNEY MD Ot Z87.891 PERSONAL HISTORY OF NICOTINE DEPENDENCE 10/19/2018 KIRSTEN GAFFNEY MD Ot Z95.1 PRESENCE OF AORTOCORONARY BYPASS GRAFT 10/19/2018 KIRSTEN GAFFNEY MD Ot Z95.820 PERIPHERAL VASCULAR ANGIOPLASTY STATUS W 10/27/2018 Ot V76.12 10/27/2018 Ot 787.02 10/27/2018 Ot 789.00 10/27/2018 Ot 250.00 10/27/2018 Ot 397.0 10/27/2018 Ot 401.9 10/27/2018 Ot 414.00 10/27/2018 Ot 424.0 10/27/2018 Ot 429.3 10/27/2018 Ot 433.10 10/27/2018 Ot V76.12 10/27/2018 Ot V76.12 OTH SCREEN MAMMO-MALIGN NEOPLASM OF [place] 10/27/2018 UDAY SALAZAR MD Ot 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 Results Test [...] ABO+Rh group ABP NRG Transfusion band number [id number] NRG Blood group antibody screen NEGATIVE NRG [...] resistant Staphylococcus aureus (MRSA) screening culture NEG [facility] Complete blood count (CBC) with automated white [...] blood basophil count (count/volume) 0.0 10*3/uL 0.0-0.1 Complete blood count (CBC) with automated white blood cell (WBC) differential - 10/18/18 18:35 Blood leukocytes automated count (number/volume) 9.3 10*3/uL 4.3-11.0 Blood erythrocytes automated count (number/volume) 3.95 10*6/uL 4.35-5.85 Venous blood hemoglobin measurement (mass/volume) 8.8 g/dL 11.5-16.0 Blood hematocrit (volume fraction) 30 % 35-52 Automated erythrocyte mean corpuscular volume 76 [foz_us] 80-99 Automated erythrocyte mean corpuscular hemoglobin (mass per erythrocyte) 22 pg 25-34 Automated erythrocyte mean corpuscular hemoglobin concentration measurement ( mass/volume) 29 g/dL 32-36 Automated erythrocyte distribution width ratio 18.3 % 10.0-14.5 Automated blood platelet count (count/volume) 216 10*3/uL 130-400 Automated blood platelet mean volume measurement 11.1 [foz_us] 7.4-10.4 Automated blood neutrophils/100 leukocytes 66 % 42-75 Automated blood lymphocytes/100 leukocytes 23 % 12-44 Blood monocytes/100 leukocytes 9 % 0-12 Automated blood eosinophils/100 leukocytes 1 % 0-10 Automated blood basophils/100 leukocytes 1 % 0-10 Blood neutrophils automated count (number/volume) 6.1 10*3 1.8-7.8 Blood lymphocytes automated count (number/volume) 2.2 10*3 1.0-4.0 Blood monocytes automated count (number/volume) 0.9 10*3 0.0-1.0 Automated eosinophil count 0.1 10*3/uL 0.0-0.3 Automated blood basophil count (count/volume) 0.1 10*3/uL 0.0-0.1 PT panel in platelet poor plasma by coagulation assay - 10/18/18 18:35 Prothrombin time (PT) in platelet poor plasma by coagulation assay 15.5 s 12.2-14.7 INR in platelet poor plasma or blood by coagulation assay 1.2 0.8-1.4 Activated partial thromboplastin time (aPTT) in platelet poor plasma bycoagulation assay - 10/18/18 18:35 Activated partial thromboplastin time (aPTT) in platelet poor plasma bycoagulation assay 35 s 24-35 Comprehensive metabolic panel - 10/18/18 18:35 Serum or plasma sodium measurement (moles/volume) 139 mmol/L 135-145 Serum or plasma potassium measurement (moles/volume) 4.2 mmol/L 3.6-5.0 Serum or plasma chloride measurement (moles/volume) 102 mmol/L 98-107 Carbon dioxide 20 mmol/L 21-32 Serum or plasma anion gap determination (moles/volume) 17 mmol/L 5-14 Serum or plasma urea nitrogen measurement (mass/volume) 16 mg/dL 7-18 Serum or plasma creatinine measurement (mass/volume) 1.33 mg/dL 0.60-1.30 Serum or plasma urea nitrogen/creatinine mass ratio 12 NRG Serum or plasma creatinine measurement with calculation of estimated glomerular filtration rate 40 NRG Serum or plasma glucose measurement (mass/volume) 367 mg/dL 70-105 Serum or plasma calcium measurement (mass/volume) 9.7 mg/dL 8.5-10.1 Serum or plasma total bilirubin measurement (mass/volume) 0.5 mg/dL 0.1-1.0 Serum or plasma alkaline phosphatase measurement (enzymatic activity/volume) 134 U/L 40-136 Serum or plasma aspartate aminotransferase measurement (enzymatic activity/ volume) 43 U/L 5-34 Serum or plasma alanine aminotransferase measurement (enzymatic activity/volume ) 27 U/L 0-55 Serum or plasma protein measurement (mass/volume) 7.8 g/dL 6.4-8.2 Serum or plasma albumin measurement (mass/volume) 4.0 g/dL 3.2-4.5 CALCIUM CORRECTED 9.7 mg/dL 8.5-10.1 Magnesium - 10/18/18 18:35 Magnesium 1.4 mg/dL 1.8-2.4 Serum or plasma troponin i.cardiac measurement (mass/volume) - 10/18/18 18:35 Serum or plasma troponin i.cardiac measurement (mass/volume) < ng/ mL <0.30 Lipase - 10/18/18 18:35 Lipase 144 U/L 8-78 Serum or plasma lithium measurement (moles/volume) - 10/18/18 18:35 BNP level 99.0 pg/mL <100.0 RED CELLS LEUKO REDUCED AS1 - 10/18/18 18:35 RED CELLS LEUKO REDUCED AS1 TRANSFUSED 10/18/18 [id number] [facility] Blood type T Indirect antibody screen panel - 10/18/18 18:35 ABO+Rh group ABP [facility] Transfusion band number [id number] [facility] Blood group antibody screen NEGATIVE [facility] Complete urinalysis with reflex to culture - 10/18/18 20:17 Urine color determination YELLOW NRG Urine clarity determination CLEAR NRG Urine pH measurement by test strip 6 5-9 Specific gravity of urine by test strip 1.015 1.016- 1.022 Urine protein assay by test strip, semi-quantitative 3+ NEGATIVE Urine glucose detection by automated test strip 1+ NEGATIVE Erythrocytes detection in urine sediment by light microscopy 2+ NEGATIVE Urine ketones detection by automated test strip NEGATIVE NEGATIVE Urine nitrite detection by test strip NEGATIVE NEGATIVE Urine total bilirubin detection by test strip NEGATIVE NEGATIVE Urine urobilinogen measurement by automated test strip (mass/volume) 1 mg/dL NORMAL Urine leukocyte esterase detection by dipstick 1+ NEGATIVE Automated urine sediment erythrocyte count by microscopy (number/high power field) [HPF] NRG Automated urine sediment leukocyte count by microscopy (number/high power field ) [HPF] NRG Bacteria detection in urine sediment by light microscopy TRACE NRG Crystals detection in urine sediment by light microscopy NONE NRG Casts detection in urine sediment by light microscopy PRESENT NRG Mucus detection in urine sediment by light microscopy SMALL NRG Complete urinalysis with reflex to culture NO NRG Hyaline casts detection in urine sediment by light microscopy 10-25 NRG WBC casts detection in urine sediment by light microscopy RARE NRG Coarse granular casts detection in urine sediment by light microscopy 0-2 NRG Blood CBC with ordered manual differential panel - 10/19/18 05:21 Blood leukocytes automated count (number/volume) 8.5 10*3/uL 4.3-11.0 Blood erythrocytes automated count (number/volume) 4.27 10*6/uL 4.35-5.85 Venous blood hemoglobin measurement (mass/volume) 9.9 g/dL 11.5-16.0 Blood hematocrit (volume fraction) 33 % 35-52 Automated erythrocyte mean corpuscular volume 77 [foz_us] 80-99 Automated erythrocyte mean corpuscular hemoglobin (mass per erythrocyte) 23 pg 25-34 Automated erythrocyte mean corpuscular hemoglobin concentration measurement ( mass/volume) 30 g/dL 32-36 Automated erythrocyte distribution width ratio 18.3 % 10.0-14.5 Automated blood platelet count (count/volume) 187 10*3/uL 130-400 Automated blood platelet mean volume measurement 11.5 [foz_us] 7.4-10.4 Automated blood neutrophils/100 leukocytes 63 % 42-75 Automated blood lymphocytes/100 leukocytes 27 % 12-44 Blood monocytes/100 leukocytes 3 % NRG Automated blood eosinophils/100 leukocytes 1 % 0-10 Automated blood basophils/100 leukocytes 0 % 0-10 Blood neutrophils automated count (number/volume) 5.3 10*3 1.8-7.8 Blood lymphocytes automated count (number/volume) 2.3 10*3 1.0-4.0 Blood monocytes automated count (number/volume) 0.7 10*3 0.0-1.0 Automated eosinophil count 0.1 10*3/uL 0.0-0.3 Automated blood basophil count (count/volume) 0.0 10*3/uL 0.0-0.1 Manual blood segmented neutrophils/100 leukocytes 77 % NRG Blood band neutrophils/100 leukocytes 3 % NRG Manual blood lymphocytes/100 leukocytes 17 % NRG Blood anisocytosis detection by light microscopy MARKED NRG Blood hypochromia detection by light microscopy MARKED NRG Blood microcytes detection by light microscopy MODERATE NRG Comprehensive metabolic panel - 10/19/18 05:21 Serum or plasma sodium measurement (moles/volume) 138 mmol/L 135-145 Serum or plasma potassium measurement (moles/volume) 3.7 mmol/L 3.6-5.0 Serum or plasma chloride measurement (moles/volume) 106 mmol/L 98-107 Carbon dioxide 20 mmol/L 21-32 Serum or plasma anion gap determination (moles/volume) 12 mmol/L 5-14 Serum or plasma urea nitrogen measurement (mass/volume) 14 mg/dL 7-18 Serum or plasma creatinine measurement (mass/volume) 0.82 mg/dL 0.60-1.30 Serum or plasma urea nitrogen/creatinine mass ratio 17 NRG Serum or plasma creatinine measurement with calculation of estimated glomerular filtration rate > NRG Serum or plasma glucose measurement (mass/volume) 178 mg/dL 70-105 Serum or plasma calcium measurement (mass/volume) 9.2 mg/dL 8.5-10.1 Serum or plasma total bilirubin measurement (mass/volume) 0.5 mg/dL 0.1-1.0 Serum or plasma alkaline phosphatase measurement (enzymatic activity/volume) 128 U/L 40-136 Serum or plasma aspartate aminotransferase measurement (enzymatic activity/ volume) 40 U/L 5-34 Serum or plasma alanine aminotransferase measurement (enzymatic activity/volume ) 25 U/L 0-55 Serum or plasma protein measurement (mass/volume) 7.3 g/dL 6.4-8.2 Serum or plasma albumin measurement (mass/volume) 3.6 g/dL 3.2-4.5 CALCIUM CORRECTED 9.5 mg/dL 8.5-10.1 Magnesium - 10/19/18 05:21 Magnesium 1.4 mg/dL 1.8-2.4 Morning cortisol measurement - 10/19/18 05:21 Cortisol AM 12.9 % 3.7-19.4 Capillary blood glucose measurement by glucometer (mass/volume) - 10/19/18 05: 29 Capillary blood glucose measurement by glucometer (mass/volume) 187 mg/dL 70-110 Stool occult blood screen - 10/19/18 07:30 Stool gastrointestinal hemoglobin detection POSITIVE NEGATIVE Capillary blood glucose measurement by glucometer (mass/volume) - 10/19/18 11: 04 Capillary blood glucose measurement by glucometer (mass/volume) 212 mg/dL 70-110 Encounters ACCT No. Visit Date/Time Discharge Status Pt. Type Provider Facility Loc./Unit Complaint [id number] 10/27/2018 05:50:00 10/27/2018 13:34:00 DIS Outpatient OLIVIA SORENSON MD [facility] PREOP EGD [id number] 10/23/2018 14:52:00 10/23/2018 23:59:59 CLS Outpatient VIJAY ATKINS [facility] ONC [id number] 10/18/2018 20:30:00 10/19/2018 15:15:00 DIS Outpatient YEIMY BARKER, KIRSTEN Potts [facility] 4TH SEVERE ANEMIA HYPOTENSION ,HPOMAGNESSEMA,DEHYDRATIO [id number] 10/13/2018 12:30:00 10/13/2018 23:59:59 CLS Outpatient PHYLLIS NIETO MD [facility] CR STATUS POST ACB [id number] 07/17/2018 13:58:00 07/18/2018 00:01:00 DIS Outpatient VIJAY ATKINS [facility] ONC [id number] 06/17/2018 14:41:00 07/17/2018 13:56:00 DIS Outpatient VIJAY ATKINS [facility] ONC [id number] 05/15/2018 17:05:00 05/15/2018 23:59:59 CLS Outpatient PHYLLIS NIETO MD [facility] LAB ANEMIA [id number] 05/08/2018 15:17:00 05/08/2018 23:59:59 CLS Outpatient PHYLLIS NIETO MD [facility] CARD CAD,CHEST PAIN,HTN, DIZZINESS [id number] 05/01/2018 17:04:00 05/01/2018 18:04:00 DIS Emergency MIKEY ARCHIBALD DO [facility] ER DIZZINESS;FALL AT HOME [id number] 04/09/2018 12:51:00 04/09/2018 23:59:59 CLS Outpatient ALAN ROD MD [facility] RAD [id number] 03/05/2018 06:49:00 03/05/2018 13:00:00 DIS Outpatient PHYLLIS NIETO MD [facility] CATH ABN STRESS TEST,CAD,HTN [id number] 02/19/2018 07:43:00 02/19/2018 23:59:59 CLS Outpatient PHYLLIS NIETO MD [facility] CARD CAD [id number] 10/11/2017 06:09:00 10/11/2017 09:40:00 DIS Outpatient JOHN CRUZ DO [facility] SDC THICKENED ENDOMETRIUM [id number] 10/04/2017 09:10:00 10/04/2017 10:03:00 DIS Outpatient JOHN CRUZ DO [facility] PREOP THICKENED ENDOMETRIUM [id number] 09/18/2017 09:25:00 09/18/2017 12:10:00 DIS Outpatient OLIVIA SORENSON MD [facility] ENDO FAM HX COLON CA, HX POLYPS [id number] 09/12/2017 14:30:00 09/12/2017 14:54:00 DIS Outpatient OLIVIA SORENSON MD [facility] PREOP COLO [id number] 08/29/2017 14:52:00 08/29/2017 23:59:59 CLS Outpatient UDAY SALAZAR MD [facility] RAD ABDOMINAL PAIN LUQ R10.12 [id number] 08/26/2017 06:43:00 08/26/2017 23:59:59 CLS Outpatient UDAY SALAZAR MD [facility] RAD ABDOMINAL PAIN LEFT UPPER QUADRANT [id number] 08/08/2017 15:15:00 08/08/2017 23:59:59 CLS Preadmit MARTIN BARKER, UDAY Brown [facility] RAD LUQ ABD PAIN [id number] 02/27/2016 07:08:00 02/27/2016 23:59:59 CLS Outpatient PRAVEEN VILLAVICENCIO [facility] CARD [id number] 02/21/2016 14:51:00 02/21/2016 23:59:59 CLS Outpatient PRAVEEN VILLAVICENCIO [facility] CARD CAD,HTN,HLP , NIDDM [id number] 02/14/2016 13:02:00 02/14/2016 23:59:59 CLS Outpatient GERSON BARKER, PHYLLIS Morales [facility] RAD [id number] 10/31/2018 12:45:00 PEN Preadmit OLIVIA SORENSON MD [facility] ENDO ANEMIA [id number] 10/27/2018 13:19:00 Document Registration [id number] 06/24/2018 11:37:00 Document Registration [id number] 06/24/2018 11:32:00 Document Registration [id number] 02/21/2016 14:51:00 Document Registration [id number] 02/25/2013 10:45:00 Document Registration [id number] 08/13/2011 07:02:00 Document Registration [id number] 08/10/2011 08:28:00 Document Registration [id number] 07/13/2010 09:21:00 Document Registration [id number] 07/11/2009 10:05:00 Document Registration [id number] 10/27/2008 14:58:00 Document Registration [id number] 07/23/2008 19:29:00 Document Registration [id number] 06/16/2007 16:49:00 Document Registration [id number] 05/01/2006 09:14:00 Document Registration
[2018-10-31] MEDS ORDERED: NS IV 500 ML 500 ML IV PRN (11:31)
[2018-10-31] MEDS ORDERED: MIDAZOLAM 2 MG/2 ML (VERSED) VIAL IVP ONE (11:45)
[2018-10-31] MEDS ORDERED: HURRICAINE EXT TUBE (BENZOCAINE) XX PRN (11:45)
[2018-10-31] MEDS ORDERED: fentaNYL INJECTION 100 MCG/2 ML AMP IVP ONE (11:45)
[2018-10-31] MEDS ORDERED: NS IV 500 ML 500 ML ONE (11:45)
[2018-10-31] MEDS ORDERED: LIDOCAINE JELLY 2% 6 ML SYRINGE MM PRN (11:45)
[2018-10-31 12:00] VITALS: BP 114/76
--- NOTE | 2018-10-31 12:14 | Conscious Sedation/ASA ---
Conscious Sedation Pre-Proced Time 12:00 ASA Score 2 For ASA 3 and 4: Consider anesthesia and medical clearance. Also, for patients with a history of failed moderate sedation consider anesthesia. Airway Lungs Heart ASA score ASA 1: a normal healthy patient ASA 2: a patient with a mild systemic disease (mid diabetes, controlled hypertension, obesity ASA 3: a patient with a severe systemic disease that limits activity (angina , COPD, prior Myocardial infarction) ASA 4: a patient with an incapacitating disease that is a constant threat to life (CHF, renal failure) ASA 5: a moribund patient not expected to survive 24 hrs. (ruptured aneurysm) ASA 6: a declared brain patient whose organs are being harvested. For emergent operations, add the letter E after the classification Mallampati Classification Grade 2 Sedation Plan Analgesia, Amnesia, Plan communicated to team members, Discussed options with patient/fam, Discussed risks with patient/fam The patient is an appropriate candidate to undergo the planned procedure, sedation, and anesthesia. The patient immediately re-assessed prior to indication. OLIVIA SORENSON MD Oct 31, 2018 12:14
--- NOTE | 2018-10-31 12:14 | Progress Note-Pre Operative ---
Pre-Operative Progress Note H&P Reviewed The H&P was reviewed, patient examined and no changes noted. Date Seen by Provider: Oct 31, 2018 Time Seen by Provider: 12:00 Date H&P Reviewed: Oct 31, 2018 Time H&P Reviewed: 12:00 Pre-Operative Diagnosis: anemia OLIVIA SORENSON MD Oct 31, 2018 12:14
[2018-10-31] MEDS ORDERED: morphine INJ 10 MG/ML 1ML (SYR OR VIAL) IV PRN (12:15)
[2018-10-31] MEDS ORDERED: ACETAMINOPHEN 325 MG TABLET PO PRN (12:15)
[2018-10-31] MEDS ORDERED: ONDANSETRON 4 MG/2 ML (SDV) Z0FRAN IV PRN (12:15)
[2018-10-31] MEDS ORDERED: HYDROcodone/APAP 5 MG/325 MG (LORTAB) TAB PO PRN (12:15)
[2018-10-31] MEDS ORDERED: MIDAZOLAM 2 MG/2 ML (VERSED) VIAL ONE ×3 (12:22)
[2018-10-31] MEDS ORDERED: fentaNYL INJECTION 100 MCG/2 ML AMP ONE (12:22)
[2018-10-31] MEDS ORDERED: HURRICAINE EXT TUBE (BENZOCAINE) ONE (12:22)
[2018-10-31] MEDS ORDERED: LIDOCAINE JELLY 2% 6 ML SYRINGE ONE (12:23)
--- NOTE | 2018-10-31 13:24 | Progress Note-Post Operative ---
Post-Operative Progess Note Surgeon (s)/Sausage Grinder (s) Surgeon OLIVIA SORENSON MD Sausage Grinder: none Pre-Operative Diagnosis anemia Post-Operative Diagnosis reflux esophagitis(stage 2-3), moderate gastritis, no active bleed. Procedure & Operative Findings Date of Procedure 10/31/18 Procedure Performed/Findings EGD with bx. Anesthesia Type CS Estimated Blood Loss Estimated blood loss (mL): minimal Specimens/Packing Specimens Removed GE jxn, antrum. OLIVIA SORENSON MD Oct 31, 2018 13:24
[2018-10-31 13:25] VITALS: BP 103/66
[2018-10-31] MEDS ORDERED: SUCR1TAB36 PO (13:25)
--- NOTE | 2018-10-31 13:26 | Discharge Inst-Surgical ---
D/C Lap Instructions-KIDO New, Converted, or Re-Newed RX: RX on Chart Follow Up PRN Activity as tolerated No smoking High Fiber Diet 25g or more per day Avoid Alcohol, Caffeine, Spicy [place] and Acid foods. Drink 64 fluid oz or more of fluids per day. Symptoms to Report: Fever over 101 degree F, Nausea/Vomiting If any problems/questions: Contact your physician or go to Emergency Room OLIVIA SORENSON MD Oct 31, 2018 13:26
[2018-10-31 13:55] VITALS: BP 120/76
[2018-10-31 14:15] VITALS: BP 120/76
--- NOTE | 2018-10-31 21:08 | OPERATIVE REPORT ---
DATE OF SERVICE: 10/31/2018 ATTENDING PRIMARY CARE PHYSICIAN: Dr. Jas Barnes. PREOPERATIVE DIAGNOSES: Anemia, history of gastroesophageal reflux disease. POSTOPERATIVE DIAGNOSES: Reflux esophagitis between stage II and III, small to moderate size hiatal hernia, 2.5 cm in size. Moderate to severity gastritis with a slightly pronounced rugal folds, which may indicate a hypergastrinemia. No formal ulcerations or active bleeding. PROCEDURE: EGD with biopsy. SURGEON: Olivia Sorenson M.D. ANESTHESIA: Conscious sedation. ESTIMATED BLOOD LOSS: Minimal. FINDINGS: Reflux esophagitis between stage II and III, moderate size hiatal hernia approximately 2.5 cm in size. Moderate severity gastritis, which was diffuse with increased rugal folds which may indicate some level of the hypergastrinemia. Pylorus and duodenum appeared normal with no distal obstructions. DISPOSITION: The patient tolerated the procedure well. INDICATIONS: The patient is a 68-year-old female known to us. She was seen in 2017 for screening colonoscopy and history of polyps as well as a strong family history of colon cancer with her father being diagnosed as well as her daughter. She was found to have chronic stage II external and internal hemorrhoids as well as a moderate sigmoid diverticulosis, small polyp of the transverse and ascending colon; however, benign tubular adenomas. She was referred to us for ongoing anemia. In January 2018 she underwent a 3-vessel cardiac bypass and then underwent bilateral stents to the lower extremities. She has had issues with weakness, fatigue, shortness of breath and was found to be anemic and was given two units of packed red blood cells as well as iron infusions. Despite this, she was again anemic with hemoglobin of 8. She does not report any hematemesis, no coffee ground emesis. She also does not report any red blood per rectum nor any dark tarry stools. DESCRIPTION OF PROCEDURE: The patient was brought to the endoscopy suite, laid in left lateral decubitus position. After adequate IV pain and sedating medications and conscious sedation anesthesia, the mouthpiece was applied. Endoscope was placed in the mouth, visualizing the pharynx and hypopharyngeal region. Vocal cords, epiglottis, vallecula identified and appeared to be normal. The endoscope was then gently intubated at the esophageal opening and esophagus insufflated. The endoscope was then advanced to the first, second and third portion of the esophagus at the level of the GE junction, a reflux esophagitis between stage II and III identified. There were no ulcers or strictures or bleeding identified in this region. A biopsy was taken using forceps with visualization of good hemostasis. The endoscope was then easily advanced in the stomach and endoscope retroflexed, visualizing a small to moderate size hiatal hernia approximately 2.5 cm in size. There was a moderate diffuse gastritis with increased rugal folds throughout the fundus and body of the stomach, which may indicate some level of hypergastrinemia; however, there were no ulcerations identified. A biopsy was taken of the stomach antrum to rule out H. pylori with visualization of good hemostasis. The endoscope was then advanced to the pylorus into the first and second portion of duodenum, which appeared normal. No distal obstructions. The endoscope was then slowly withdrawn while taking a second look and suctioning of residual air with no additional findings. The patient tolerated the procedure well. We will recommend continued medical management with cessation of smoking, as well as caffeinated beverages and to take in small and more frequent meals and avoidance of eating at night. She also needs to avoid spicy, greasy and acidic foods. She is currently on Protonix. However, we will add Carafate 1 gram q.i.d. for the next 2 weeks then on a p.r.n. basis. If this is ineffective, trial of Dexilant would be next. Job ID: [id number] DocumentID: [id number] Dictated Date: 10/31/2018 13:14:52 Cabinet Installer Date: 10/31/2018 21:07:28 Dictated By: OLIVIA SORENSON MD
== END 2018-10-31 14:15 | disposition home or self-care (01) ==
LOC: ENDO 11:24
PROVIDERS: ATTEND Surgery
DX: K21.0 Gastro-esophageal reflux disease with esophagitis (principal); K44.9 Diaphragmatic hernia without obstruction or gangrene; K29.70 Gastritis, unspecified, without bleeding; D64.9 Anemia, unspecified; E11.9 Type 2 diabetes mellitus without complications; I25.10 Atherosclerotic heart disease of native coronary artery without angina pectoris; E78.00 Pure hypercholesterolemia, unspecified; F41.9 Anxiety disorder, unspecified; F32.9 Major depressive disorder, single episode, unspecified; Z80.0 Family history of malignant neoplasm of digestive organs; Z86.010 Personal history of colon polyps; Z95.1 Presence of aortocoronary bypass graft; Z79.82 Long term (current) use of aspirin; Z79.4 Long term (current) use of insulin; Z79.899 Other long term (current) drug therapy; Z87.891 Personal history of nicotine dependence
CPT/HCPCS: 82962

== ENCOUNTER 2019-02-12 13:07 | Outpatient (RCR) | payer MEDICARE, OTHER ==
[2019-01-12 13:07] LABS: ABSOLUTE RETIC # 104 10e9/L (24-90); BASOPHILS % (AUTO) 1 % (0-10); EOSINOPHILS # (AUTO) 0.1 10^3/uL (0.0-0.3); EOSINOPHILS % (AUTO) 2 % (0-10); HEMATOCRIT 29 % (35-52); HEMOGLOBIN 8.5 G/DL (11.5-16.0); LYMPHOCYTES # (AUTO) 1.5 X 10^3 (1.0-4.0); LYMPHOCYTES % (AUTO) 22 % (12-44); MEAN CORPUSCULAR HEMOGLOBIN 25 PG (25-34); MEAN CORPUSCULAR HGB CONC 30 G/DL (32-36); MEAN CORPUSCULAR VOLUME 85 FL (80-99); MEAN PLATELET VOLUME 10.7 FL (7.4-10.4); MONOCYTES # (AUTO) 0.5 X 10^3 (0.0-1.0); MONOCYTES % (AUTO) 8 % (0-12); NEUTROPHILS # (AUTO) 4.5 X 10^3 (1.8-7.8); NEUTROPHILS % (AUTO) 68 % (42-75); PLATELET COUNT 204 10^3/uL (130-400); RETICULOCYTE % 3.08 % (0.50-2.40); WHITE BLOOD COUNT 6.6 10^3/uL (4.3-11.0)
[2019-01-12 13:30] LABS: ALBUMIN 3.8 GM/DL (3.2-4.5); BILIRUBIN,TOTAL 0.4 MG/DL (0.1-1.0); CALCIUM 9.8 MG/DL (8.5-10.1); CREATININE SERUM 1.01 MG/DL (0.60-1.30); POTASSIUM 3.9 MMOL/L (3.6-5.0); TOTAL PROTEIN 7.8 GM/DL (6.4-8.2)
[~2019-02-12 13:07] MED LIST changes: +FERRIC CARBOXYMALTOSE (CANCER) 750 MG in NS (IVPB) CANCER CENTER 250 ML IV SCH; +SUCR1TAB36 PO
[2019-02-12 13:23] LABS: BASOPHILS % (AUTO) 0 % (0-10); EOSINOPHILS # (AUTO) 0.1 10^3/uL (0.0-0.3); EOSINOPHILS % (AUTO) 2 % (0-10); HEMATOCRIT 37 % (35-52); HEMOGLOBIN 11.7 G/DL (11.5-16.0); LYMPHOCYTES # (AUTO) 1.4 X 10^3 (1.0-4.0); LYMPHOCYTES % (AUTO) 22 % (12-44); MEAN CORPUSCULAR HEMOGLOBIN 29 PG (25-34); MEAN CORPUSCULAR HGB CONC 31 G/DL (32-36); MEAN CORPUSCULAR VOLUME 92 FL (80-99); MEAN PLATELET VOLUME 11.5 FL (7.4-10.4); MONOCYTES # (AUTO) 0.6 X 10^3 (0.0-1.0); MONOCYTES % (AUTO) 10 % (0-12); NEUTROPHILS # (AUTO) 4.1 X 10^3 (1.8-7.8); NEUTROPHILS % (AUTO) 66 % (42-75); PLATELET COUNT 167 10^3/uL (130-400); RED CELL DISTRIBUTION WIDTH 20.5 % (10.0-14.5); WHITE BLOOD COUNT 6.3 10^3/uL (4.3-11.0)
== END 2019-02-18 | disposition home or self-care (01) ==
LOC: ONC 13:07
PROVIDERS: ATTEND Internal Medicine Hematology & Oncology
DX: D64.9 Anemia, unspecified (principal); R42 Dizziness and giddiness; I25.10 Atherosclerotic heart disease of native coronary artery without angina pectoris; I10 Essential (primary) hypertension; E78.5 Hyperlipidemia, unspecified; E11.43 Type 2 diabetes mellitus with diabetic autonomic (poly)neuropathy; I73.9 Peripheral vascular disease, unspecified; F17.210 Nicotine dependence, cigarettes, uncomplicated; Z95.820 Peripheral vascular angioplasty status with implants and grafts; Z95.1 Presence of aortocoronary bypass graft; Z79.4 Long term (current) use of insulin; Z79.899 Other long term (current) drug therapy
CPT/HCPCS: 36415; 80053; 82728; 82941; 85025; 85045; 96365

== ENCOUNTER → 2019-02-18 | Outpatient (CLI) | payer MEDICARE, OTHER ==
[~2019-02-18] MED LIST changes: -FERRIC CARBOXYMALTOSE (CANCER) 750 MG in NS (IVPB) CANCER CENTER 250 ML IV SCH
== END ==
LOC: CARD 08:42
PROVIDERS: ATTEND Physician Assistant
DX: R07.9 Chest pain, unspecified (principal); I25.10 Atherosclerotic heart disease of native coronary artery without angina pectoris; I10 Essential (primary) hypertension; E78.5 Hyperlipidemia, unspecified; I07.1 Rheumatic tricuspid insufficiency
CPT/HCPCS: 93306

== ENCOUNTER → 2019-02-25 | Outpatient (CLI) | payer MEDICARE, OTHER ==
[~2019-02-25] VITALS: Ht 170.2 cm; Wt 79.8 kg
[~2019-02-25] MED LIST changes: +CATHETER FLUSH 10 ML SYR IV PRN; +FERR-84 PO; +FOLI1TAB24 PO; +LIRA0.6P3 SQ; +MULT-351 PO; +REGADENOSON 0.4 MG/5 ML SYR (LEXISCAN) IV ONE
[2019-02-25 08:51] VITALS: BP 121/70
[2019-02-25 08:56] VITALS: BP 122/76
[2019-02-25 08:57] VITALS: BP 98/60
--- NOTE | 2019-02-25 11:50 | STRESS TEST ---
DATE OF SERVICE: 02/25/2019 LEXISCAN MYOVIEW STRESS TEST REPORT REFERRING PHYSICIAN: Dr. Barnes. INDICATIONS: Chest pain. Baseline heart rate is 86. Baseline blood pressure is 121/70. Baseline EKG is sinus rhythm with no ischemic changes. In summary, the patient was injected with 10.4 mCi of technetium-99 Myoview and the resting images were obtained. Then, the patient received 0.4 mg of Lexiscan followed by 30.4 mCi of technetium-99 Myoview. Throughout the test, there were no EKG changes. The resting and stress images were reviewed and compared in the short axis, horizontal long axis and vertical long axis views. Review of the images showed breast attenuation affecting the quality of the images with mild reversible ischemia involving the mid to apical anterior wall and anterolateral wall and inferolateral wall. SSS is 8. SDS is 8. TID value is 1.1. On the gated images, the left ventricle appeared to be normal size with normal contractility. Calculated ejection fraction is 67%. CONCLUSION: 1. The patient tolerated the Lexiscan well. 2. Breast attenuation affecting the quality of the images with reversible ischemia involving the basal to mid anterior wall, anterolateral wall and inferolateral wall. 3. Normal left ventricular size with normal contractility. Calculated ejection fraction is 67%. Job ID: [id number] DocumentID: [id number] Dictated Date: 02/25/2019 11:21:46 Hotel Assistant General Manager Date: 02/25/2019 11:49:42 Dictated By: PHYLLIS NIETO MD
== END ==
LOC: CARD 07:00
PROVIDERS: ATTEND Physician Assistant
DX: R07.9 Chest pain, unspecified (principal); I25.10 Atherosclerotic heart disease of native coronary artery without angina pectoris; I10 Essential (primary) hypertension; E78.5 Hyperlipidemia, unspecified
CPT/HCPCS: 78452; 93017

== ENCOUNTER 2019-02-27 06:51 | Day surgery (SDC) | payer MEDICARE, OTHER ==
[2019-02-27] VITALS (12 sets, daily range): BP systolic 88–135; BP diastolic 55–82
[~2019-02-27] VITALS: Ht 170.2 cm; Wt 79.8 kg
[~2019-02-27 06:51] MED LIST changes: -CATHETER FLUSH 10 ML SYR IV PRN; -FERR-84 PO; -FOLI1TAB24 PO; -LIRA0.6P3 SQ; -MULT-351 PO; -REGADENOSON 0.4 MG/5 ML SYR (LEXISCAN) IV ONE
[2019-02-27] MEDS ORDERED: NS IV 1000 ML 3,000 ML ONE (07:07)
[2019-02-27] MEDS ORDERED: HEParin 1000 UNIT/ML (10ML VIAL) FOR BOLUS ONE (07:07)
[2019-02-27] MEDS ORDERED: LIDOCAINE 1% INJ 20 ML 20 ML VIAL ONE (07:07)
[2019-02-27] MEDS ORDERED: NS IV 1000 ML 1,000 ML IV SCH ×2 (07:15→09:19)
[2019-02-27 07:34] LABS: HEMOGLOBIN 12.8 G/DL (11.5-16.0); MEAN PLATELET VOLUME 11.3 FL (7.4-10.4); RED CELL DISTRIBUTION WIDTH 19.2 % (10.0-14.5)
[2019-02-27 07:35] LABS: CLARITY,URINE CLEAR; COLOR,URINE YELLOW; GLUCOSE, URINE (UA) NEGATIVE (NEGATIVE); KETONES,URINE 1+ (NEGATIVE); LEUKOCYTE ESTERASE ,URINE 2+ (NEGATIVE); NITRITE,URINE NEGATIVE (NEGATIVE); PH,URINE 6 (5-9); PROTEIN,URINE 4+ (NEGATIVE); UROBILINOGEN,URINE 1 MG/DL (NORMAL)
--- NOTE | 2019-02-27 07:43 | Diagnostic Imaging Report ---
INDICATION: Coronary artery disease. Portable chest 7:29 AM FINDINGS: There are postop changes from CABG surgery. Heart size and pulmonary vascularity are normal. Lungs are clear. There are no effusions or pneumothoraces. IMPRESSION: No acute abnormalities in the chest. Dictated by: Dictated on workstation # [id number]
[2019-02-27] MEDS ORDERED: FERR-84 PO (07:44)
[2019-02-27] MEDS ORDERED: FOLI1TAB24 PO (07:44)
[2019-02-27] MEDS ORDERED: MULT-351 PO (07:44)
[2019-02-27] MEDS ORDERED: LIRA0.6P3 SQ (07:44)
[2019-02-27 07:51] LABS: BACTERIA,URINE MODERATE /HPF; BILIRUBIN,URINE 1+ (NEGATIVE); RBC,URINE 0-2 /HPF; WBC,URINE 25-50 /HPF
[2019-02-27] MEDS ORDERED: MIDAZOLAM 5 MG/5 ML (VERSED) VIAL ONE (07:58)
[2019-02-27] MEDS ORDERED: fentaNYL INJECTION 100 MCG/2 ML AMP ONE (07:59)
[2019-02-27 08:01] LABS: ALBUMIN 4.2 GM/DL (3.2-4.5); CALCIUM 10.5 MG/DL (8.5-10.1); CREATININE SERUM 1.31 MG/DL (0.60-1.30); POTASSIUM 3.6 MMOL/L (3.6-5.0); TOTAL PROTEIN 8.9 GM/DL (6.4-8.2)
[2019-02-27 08:25] LABS: BILIRUBIN,TOTAL 0.4 MG/DL (0.1-1.0)
--- NOTE | 2019-02-27 08:32 | Cardiac Procedure Note-CS/ASA ---
Pre-Procedure Note Pre-Op Procedure Note H&P Reviewed The H&P was reviewed, patient examined and no changes noted. Date H&P Reviewed: Feb 27, 2019 Time H&P Reviewed: 08:32 Conscious Sedation Pre-Proced Time 08:32 ASA Score 3 For ASA 3 and 4: Consider anesthesia and medical clearance. Also, for patients with a history of failed moderate sedation consider anesthesia. Airway Lungs Heart ASA score ASA 1: a normal healthy patient ASA 2: a patient with a mild systemic disease (mid diabetes, controlled hypertension, obesity x ASA 3: a patient with a severe systemic disease that limits activity (angina , COPD, prior Myocardial infarction) ASA 4: a patient with an incapacitating disease that is a constant threat to life (CHF, renal failure) ASA 5: a moribund patient not expected to survive 24 hrs. (ruptured aneurysm) ASA 6: a declared brain- patient whose organs are being harvested. For emergent operations, add the letter E after the classification Mallampati Classification Grade 3 Sedation Plan Analgesia, Amnesia, Plan communicated to team members, Discussed options with patient/fam, Discussed risks with patient/fam The patient is an appropriate candidate to undergo the planned procedure, sedation, and anesthesia. The patient immediately re-assessed prior to indication. PHYLLIS NIETO MD Feb 27, 2019 08:32
[2019-02-27 08:43] LABS: INR 1.1 (0.8-1.4); PROTHROMBIN TIME PATIENT 14.9 SEC (12.2-14.7)
--- NOTE | 2019-02-27 09:23 | Discharge Inst-Post CATH ---
Discharge Inst-CATH/EP Post Cardiac Cath/EP D/C Inst Follow Up/Plan Hold Metformin for [address] Rodriguez's office in 2-4 weeks CARDIAC CATH DISCHARGE INSTRUCTIONS *Hold Metformin for 48 hours post heart cath. ACTIVITY * Go Home directly and rest. * Limit activity of the leg (or wrist if it was used) for 7 days including aerobics, swimming, jogging, bicycling, etc. * Restrict stair-climbing for 7 days if possible, if not, climb up with your non -cath leg, then bring together on the same step. * Avoid lifting, pushing, pulling or excessive movement of the affected extremity for 7 days. * Customary sexual activity may be resumed after 2 days-use caution not to use a position that strains or causes pain to the affected extremity. * No driving for 24 hours. * NO SMOKING. * Avoid straining for bowel movements for 7 days. * Gentle walking on level ground is allowed. * Returning to work will depend on the type of procedure and the results. Your doctor will discuss this with you. CALL YOUR DOCTOR FOR ANY OF THE FOLLOWING: *If bleeding from the puncture site occurs- Apply gentle pressure to site with clean cloth and call your doctor or EMS. * If a knot or lump forms under the skin, increases in size, or causes pain. * If bruising appears to be worsening or moving further down your leg instead of disappearing. * Temperature above 101 F. CARE OF YOUR GROIN INCISION; * Bruising or purple discoloration of the skin near the puncture site is common. * You may shower only, no bathtub bathing for 5 days. Be careful to avoid slipping as your leg may feel stiff. * If a closure device was used on your femoral artery, please see the attached guide regarding care of the device and your leg. * Leave the dressing on, until removed by office staff. CARE OF YOUR WRIST INCISION; * Bruising or purple discoloration of the skin near the puncture site is common. * You may shower. * DO NOT submerge wrist. * Leave dressing on, until removed by office staff.. PHYLLIS RODRIGUEZ MD Feb 27, 2019 09:23
--- NOTE | 2019-02-27 09:29 | Cardiac Cath Report ---
Cardiac Cath Report Physician (s)/Escrow Processor (s) Physician PHYLLIS NIETO MD Pre-Procedure Diagnosis Pre-Procedure Diagnosis: Coronary artery disease Post-Procedure Note Procedure Start Date: Feb 27, 2019 Name of Procedure: Left heart catheterization Vein graft angiogram COLLINS angiogram Aortic arch angiogram Findings/Procedure Note PROCEDURE NOTE: 68 years old lady with history of coronary artery disease, had CABG done in February 2018, had abnormal stress test, scheduled for cardiac catheterization possible PTCA After explaining the procedure to the patient, all pros and cons were explained , all questions were answered. The patient signed the consent and then she was placed on the cardiac catheterization laboratory. Groin was prepped SL fashion local anesthesia was used. Sheath placed in the Right femoral artery. Krystina right and left catheter were used to access the coronary system.Vein Graft evaluated. COLLINS evaluated. Pigtail was used to access the left ventricular cavity. Left ventriculogram was not done to limit the contrast exposure Aortic arch angiogram was done At the end of the procedure the sheath was removed. Closure device was used FINDINGS: Hemodynamics LV 106/7, end-diastolic pressure of 7 Aorta 114/59 mean of 82 ANATOMY: Left Main has moderate disease distally nonobstructive disease Left Anterior Descending as moderate severe disease at the midportion, COLLINS to the LAD is patent Left Circumflex is nondominant artery with moderate disease of the obtuse marginal branch, the vein graft to the obtuse marginal branch is occluded Right Coronory Artery is dominant artery, occluded proximally and occluded vein graft to the right coronary artery, the distal right PDA and PLV are getting collaterals from the left system COLLINS to LAD is patent with small vessel disease distally Vein Graft evaluation showed 2 occluded vein graft presumably to the obtuse marginal and right coronary artery LV Gram was not done, pressure was measured Aorta evaluation done with aortic arch angiogram which showed mild hypertensive changes, no dissection or aneurysm, tortuous innominate artery, nonobstructive disease, the left subclavian artery has mild disease, the left carotid artery has mild disease CONCLUSION: 1. Occluded [place] and vein graft to the right coronary artery that is a dominant artery, the right coronary artery is getting collaterals from the left system 2. Occluded vein graft to the obtuse marginal branch, there is mild to moderate disease in the mid obtuse marginal branch, medical therapy is recommended 3. Patent COLLINS to LAD was small vessel disease distally 4. Hypertensive changes in the aortic arch. No dissection or aneurysm DISCUSSION AND RECOMMENDATION: continue to maximize medical therapy. No intervention is recommended at this point Anesthesia Type: Conscious Sedation Estimated blood loss (mL): 15 ml Contrast Amount: 52 ml Total Radiation Dose: 573 mGy Post-Procedure Diagnosis Post-operative diagnosis: Coronary artery disease Peripheral arterial disease Hypertension Hyperlipidemia PHYLLIS NIETO MD Feb 27, 2019 09:28
[2019-02-27] MEDS ORDERED: PATIENT MAY USE OWN MEDS, ALL PO SCH (09:30)
--- OUTSIDE RECORDS SUMMARY | 2019-02-27 11:25 | XMS REPORT | Continuity of Care Document ---
Author Organization Unknown Address Unknown Allergies Active Description Code Type Severity Reaction Onset Reported/Identified Relationship to Patient Clinical Status Yes No Allergy Information Available [id number] Drug Allergy Unknown N/A 2015 Yes latex [id number] Drug Allergy Unknown HIVES 10/04/2017 Yes nickel [id number] Drug Allergy Unknown HIVES 10/04/2017 Medications There is no data. Problems Date Dx Coded Attending Type Code Diagnosis Diagnosed By 10/17/1332 VIJAY ATKINS Ot D64.9 ANEMIA, UNSPECIFIED 10/17/1332 VIJAY ATKINS Ot 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 AUTONOMIC (PO 10/17/1332 VIJAY ATKINS Ot E78.5 HYPERLIPIDEMIA, UNSPECIFIED 10/17/1332 VIJAY ATKINS Ot F17.210 NICOTINE DEPENDENCE, CIGARETTES, UNCOMPL 10/17/1332 VIJAY ATKINS Ot I10 ESSENTIAL (PRIMARY) HYPERTENSION 10/17/1332 VIJAY ATKINS Ot I25.10 ATHSCL HEART DISEASE OF [place] CORONARY 10/17/1332 VIJAY ATKINS Ot I73.9 PERIPHERAL VASCULAR DISEASE, UNSPECIFIED 10/17/1332 VIJAY ATKINS Ot R42 DIZZINESS AND GIDDINESS 10/17/1332 VIJAY ATKINS Ot Z79.4 CORRECTIVE THERAPIST (CURRENT) USE OF INSULIN 10/17/1332 VIJAY ATKINS Ot Z79.899 OTHER USP (CURRENT) DRUG THERAPY 10/17/1332 VIJAY ATKINS Ot Z95.1 PRESENCE OF AORTOCORONARY BYPASS GRAFT 10/17/1332 VIJAY ATKINS Ot Z95.820 PERIPHERAL VASCULAR ANGIOPLASTY STATUS W 10/17/1355 VIJAY ATKINS Ot D64.9 ANEMIA, UNSPECIFIED 10/17/1355 VIJAY ATKINS Ot 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 AUTONOMIC (PO 10/17/1355 VIJAY ATKINS Ot E78.5 HYPERLIPIDEMIA, UNSPECIFIED 10/17/1355 VIJAY ATKINS Derrick Ot F17.210 NICOTINE DEPENDENCE, CIGARETTES, UNCOMPL 10/17/1355 VIJAY ATKINS Derrick Ot I10 ESSENTIAL (PRIMARY) HYPERTENSION 10/17/1355 VIJAY ATKINS Derrick Ot I25.10 ATHSCL HEART DISEASE OF [place] CORONARY 10/17/1355 VIJAY ATKINS Derrick Ot I73.9 PERIPHERAL VASCULAR DISEASE, UNSPECIFIED 10/17/1355 VIJAY ATKINS Derrick Ot R42 DIZZINESS AND GIDDINESS 10/17/1355 VIJAY ATKINS Derrick Ot Z79.4 CORRECTIVE THERAPIST (CURRENT) USE OF INSULIN 10/17/1355 VIJAY ATKINS Derrick Ot Z79.899 OTHER USP (CURRENT) DRUG THERAPY 10/17/1355 VIJAY ATKINS Derrick Ot Z95.1 PRESENCE OF AORTOCORONARY BYPASS GRAFT 10/17/1355 VIJAY ATKINS Derrick Ot Z95.820 PERIPHERAL VASCULAR [...] 02/14/2016 Ot 786.50 02/14/2016 Ot 793.2 02/14/2016 PHYLLIS NIETO MD Ot I65.23 02/21/2016 Ot 397.0 02/21/2016 Ot 401.9 02/21/2016 Ot 414.00 02/21/2016 Ot 424.0 02/21/2016 Ot 401.9 02/21/2016 Ot 414.00 02/21/2016 Ot 397.0 02/21/2016 Ot 414.00 02/21/2016 Ot 424.0 02/21/2016 Ot 428.0 02/21/2016 Ot 786.50 02/21/2016 Ot 793.2 02/22/2016 SANTANAVANDANA PA, PRAVEEN K Ot E11.9 02/22/2016 SANTANA-VANDANA PA, PRAVEEN K Ot E78.2 02/22/2016 SANTANA-VANDANA PA, PRAVEEN K Ot I10 02/22/2016 SANTANA-VANDANA PA, PRAVEEN K Ot I25.10 02/23/2016 [facility] Ot E11.9 02/23/2016 [facility] K Ot E78.2 02/23/2016 [facility] K Ot I10 02/23/2016 [facility] K Ot I25.10 02/27/2016 [facility] K Ot E11.9 02/27/2016 [facility] K Ot E78.2 02/27/2016 [facility] K Ot I10 02/27/2016 SANTANA-VANDANA PA, PRAVEEN K Ot I25.10 02/28/2016 SANTANA-VANDANA PA, PRAVEEN K Ot E11.9 02/28/2016 [facility] K Ot E78.2 02/28/2016 [facility], PRAVEEN K Ot I10 02/28/2016 SANTANA-VANDANA PA, PRAVEEN K Ot I25.10 02/29/2016 GERSON BARKER, PHYLLIS Morales Ot I65.23 03/04/2016 SANTANABLANKA PA, PRAVEEN K Ot E11.9 TYPE 2 DIABETES MELLITUS WITHOUT COMPLIC 03/04/2016 BERNABE PA, PRAVEEN K Ot E78.2 MIXED HYPERLIPIDEMIA 03/04/2016 SANTANABLANKA PA, PRAVEEN K Ot I10 ESSENTIAL (PRIMARY) HYPERTENSION 03/04/2016 BERNABE PA, PRAVEEN K Ot I25.10 ATHSCL HEART DISEASE OF [place] CORONARY 03/07/2016 BERNABE PA, PRAVEEN K Ot E11.9 TYPE 2 DIABETES MELLITUS WITHOUT COMPLIC 03/07/2016 BERNABE PA, PRAVEEN K Ot E78.2 MIXED HYPERLIPIDEMIA 03/07/2016 BERNABE PA, PRAVEEN K Ot I10 ESSENTIAL (PRIMARY) HYPERTENSION 03/07/2016 PRAVEEN VILLAVICENCIO Ot I25.10 ATHSCL HEART DISEASE OF [place] CORONARY 03/15/2016 PRAVEEN VILLAVICENCIO Ot E11.9 TYPE 2 DIABETES MELLITUS WITHOUT COMPLIC 03/15/2016 PRAVEEN VILLAVICENCIO Ot E78.2 MIXED HYPERLIPIDEMIA 03/15/2016 PRAVEEN VILLAVICENCIO Ot I10 ESSENTIAL (PRIMARY) HYPERTENSION 03/15/2016 PRAVEEN VILLAVICENCIO Ot I25.10 ATHSCL HEART DISEASE OF [place] CORONARY 08/06/2017 Ot 397.0 TRICUSPID VALVE DISEASE [...] VILLAVICENCIO Ot I25.10 ATHSCL HEART DISEASE OF [place] CORONARY 09/04/2017 UDAY SALAZAR MD R Ot [...] FINDINGS ON DIAGNOSTIC IMAGING 09/12/2017 OLIVIA SORENSON MD Ot Z01.818 ENCOUNTER FOR OTHER PREPROCEDURAL EXAMIN 09/12/2017 OLIVIA SORENSON MD Ot Z80.0 FAMILY HISTORY OF MALIGNANT [...] NEOPLASM OF TRANSVERSE COLON 09/18/2017 OLIVIA SORENSON MD, Ot E11.42 TYPE 2 DIABETES MELLITUS WITH DIABETIC P 09/18/2017 OLIVIA SORENSON MD, Ot I25.10 ATHSCL HEART DISEASE OF [place] CORONARY 09/18/2017 OLIVIA SORENSON MD, Ot K57.30 DVRTCLOS OF LG INT W/O PERFORATION OR AB 09/18/2017 OLIVIA SORENSON MD, Ot K64.1 SECOND DEGREE HEMORRHOIDS 09/18/2017 OLIVIA SORENSON MD, Ot Z12.11 ENCOUNTER FOR SCREENING FOR MALIGNANT NE 09/18/2017 OLIVIA SORENSON MD, Ot Z79.84 USP (CURRENT) USE OF ORAL HYPOGLYC 09/18/2017 OLIVIA SORENSON MD, Ot Z79.899 OTHER CORRECTIVE THERAPIST (CURRENT) DRUG THERAPY 09/18/2017 OLIVIA SORENSON MD, [...] MD, Ot I25.10 ATHSCL HEART DISEASE OF [place] CORONARY 09/20/2017 OLIVIA SORENSON MD, Ot K57.30 DVRTCLOS OF LG INT W/O PERFORATION OR AB 09/20/2017 OLIVIA SORENSON MD, Ot K64.1 SECOND DEGREE HEMORRHOIDS 09/20/2017 OLIVIA SORENSON MD, Ot Z12.11 ENCOUNTER FOR SCREENING FOR MALIGNANT NE 09/20/2017 OLIVIA SORENOSN MD, Ot Z79.84 USP (CURRENT) USE OF ORAL HYPOGLYC 09/20/2017 OLIVIA SORENSON MD, Ot Z79.899 OTHER CORRECTIVE THERAPIST (CURRENT) DRUG THERAPY 09/20/2017 OLIVIA SORENSON MD, Ot Z80.0 FAMILY HISTORY OF MALIGNANT NEOPLASM OF 09/20/2017 OLIVIA SORENSON MD, Ot Z86.010 PERSONAL HISTORY OF COLONIC POLYPS 09/20/2017 OLIVIA SORENSON MD, Ot Z86.73 PRSNL HX OF TIA (TIA), AND CEREB INFRC W 10/04/2017 JOHN CRUZ DO Ot R93.8 ABNORMAL FINDINGS ON DIAGNOSTIC IMAGING 10/04/2017 JOHN CRUZ DO, Ot Z01.818 ENCOUNTER FOR OTHER PREPROCEDURAL EXAMIN 10/07/2017 JOHN CRUZ DO, Ot R93.8 ABNORMAL FINDINGS ON DIAGNOSTIC IMAGING 10/07/2017 JOHN CRUZ DO, Ot Z01.818 ENCOUNTER FOR OTHER PREPROCEDURAL EXAMIN [...] SLEEP APNEA (ADULT) (PEDIATR 10/11/2017 JOHN CRUZ DO, Ot 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 10/11/2017 JOHN CRUZ DO Ot I10 ESSENTIAL (PRIMARY) HYPERTENSION 10/11/2017 JOHN CRUZ DO, Ot I25.10 ATHSCL HEART DISEASE OF [place] CORONARY 10/11/2017 JOHN CRUZ DO Ot N81.10 CYSTOCELE, UNSPECIFIED 10/11/2017 NANCY JOHN RODRIGUEZ Ot N81.6 RECTOCELE 10/11/2017 NANCY JOHN RODRIGUEZ Ot R93.8 ABNORMAL FINDINGS ON DIAGNOSTIC IMAGING 10/11/2017 NANCY RODRIGUEZJOHN Ot Z78.0 ASYMPTOMATIC MENOPAUSAL STATE 10/11/2017 NANCY JOHN RODRIGEUZ Ot Z79.02 CORRECTIVE THERAPIST (CURRENT) USE OF ANTITHROMBOTI 10/11/2017 ENZOJOHN GUEVARA DO Ot Z79.4 USP (CURRENT) USE OF INSULIN 10/11/2017 NANCY JOHN RODRIGUEZ Ot Z79.899 OTHER USP (CURRENT) DRUG THERAPY 10/11/2017 JOHN CRUZ DO Ot Z86.73 PRSNL HX OF TIA (TIA), AND CEREB INFRC W 10/30/2017 ENZOISMAEL JOHN RODRIGUEZ Ot E11.9 TYPE 2 DIABETES MELLITUS WITHOUT COMPLIC 10/30/2017 ENZOJOHN GUEVARA DO Ot E78.5 HYPERLIPIDEMIA, UNSPECIFIED 10/30/2017 ENZOJOHN GUEVARA DO Ot F17.210 NICOTINE DEPENDENCE, CIGARETTES, UNCOMPL 10/30/2017 NANCY JOHN RODRIGUEZ Ot G47.33 OBSTRUCTIVE SLEEP APNEA (ADULT) (PEDIATR 10/30/2017 ENZOISMAEL JOHN RODRIGUEZ S Ot 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 10/30/2017 JOHN CRUZ DO Ot I10 ESSENTIAL (PRIMARY) HYPERTENSION 10/30/2017 ENZOISMAEL JOHN RODRIGUEZ Ot I25.10 ATHSCL HEART DISEASE OF [place] CORONARY 10/30/2017 ENZOISMAEL JOHN RODRIGUEZ Ot N81.10 CYSTOCELE, UNSPECIFIED 10/30/2017 ENZOJOHN GUEVARA DO Ot N81.6 RECTOCELE 10/30/2017 ENZOISMAEL JOHN RODRIGUEZ Ot R93.8 ABNORMAL FINDINGS ON DIAGNOSTIC IMAGING 10/30/2017 NANCY JOHN RODRIGUEZ Ot Z78.0 ASYMPTOMATIC MENOPAUSAL STATE 10/30/2017 JOHN CRUZ DO Ot Z79.02 CORRECTIVE THERAPIST (CURRENT) USE OF ANTITHROMBOTI 10/30/2017 JOHN CRUZ DO Ot Z79.4 USP (CURRENT) USE OF INSULIN 10/30/2017 JOHN CRUZ DO Ot Z79.899 OTHER CORRECTIVE THERAPIST (CURRENT) DRUG THERAPY 10/30/2017 FENECH DO, JOHN S Ot Z86.73 PRSNL HX OF TIA (TIA), [...] MD Ot I25.10 ATHSCL HEART DISEASE OF [place] CORONARY 02/21/2018 PHYLLIS NIETO MD Ot Z72.0 TOBACCO USE 02/25/2018 PHYLLIS NIETO MD Ot E11.9 TYPE 2 DIABETES MELLITUS WITHOUT COMPLIC 02/25/2018 PHYLLIS NIETO MD Ot E78.5 HYPERLIPIDEMIA, UNSPECIFIED 02/25/2018 PHYLLIS NIETO MD Ot I10 ESSENTIAL (PRIMARY) HYPERTENSION 02/25/2018 PHYLLIS NIETO MD Ot I25.10 ATHSCL HEART DISEASE OF [place] CORONARY 02/25/2018 PHYLLIS NIETO MD Ot Z72.0 TOBACCO USE 03/04/2018 PHYLLIS NIETO MD Ot E11.9 TYPE 2 DIABETES MELLITUS WITHOUT COMPLIC 03/04/2018 PHYLLIS NIETO MD Ot E78.5 HYPERLIPIDEMIA, UNSPECIFIED 03/04/2018 PHYLLIS NIETO MD Ot I10 ESSENTIAL (PRIMARY) HYPERTENSION 03/04/2018 PHYLLIS NIETO MD Ot I25.10 ATHSCL HEART DISEASE OF [place] CORONARY 03/04/2018 PHYLLIS NIETO MD Ot Z72.0 TOBACCO USE 03/05/2018 PHYLLIS NIETO MD Ot E11.9 TYPE 2 DIABETES MELLITUS WITHOUT COMPLIC 03/05/2018 PHYLLIS NIETO MD Ot E78.5 HYPERLIPIDEMIA, UNSPECIFIED 03/05/2018 PHYLLIS NIETO MD Ot F17.210 NICOTINE DEPENDENCE, CIGARETTES, UNCOMPL 03/05/2018 PHYLLIS NIETO MD Ot I10 ESSENTIAL (PRIMARY) HYPERTENSION 03/05/2018 PHYLLIS NIETO MD Ot I25.10 ATHSCL HEART DISEASE OF [place] CORONARY 03/05/2018 PHYLLIS NIETO MD Ot I65.23 [...] MD Ot I25.10 ATHSCL HEART DISEASE OF [place] CORONARY 03/06/2018 PHYLLIS NIETO MD Ot I65.23 [...] CABG W/O ANGINA PECTO 04/21/2018 ALAN ROD MD Ot J90 PLEURAL EFFUSION, NOT ELSEWHERE CLASSIFI 05/01/2018 CRISTELA DO MIKEY K Ot R42 DIZZINESS AND GIDDINESS 05/01/2018 CRISTELA DO MIKEY K Ot W19.XXXA UNSPECIFIED FALL, INITIAL ENCOUNTER 05/01/2018 AILYN ARCHIBALD DOA K Ot Y92.[address] IN [facility] NON-[facility]IT[facility] (PRIVATE 05/05/2018 CRISTELA DOAILYNA K Ot R42 DIZZINESS AND GIDDINESS 05/05/2018 CRISTELA AILYN RODRIGUEZA K Ot W19.XXXA UNSPECIFIED FALL, INITIAL ENCOUNTER 05/05/2018 MIKEY ARCHIBALD DO K Ot Y92.[address] IN [facility] NON-INSTIT[facility] (PRIVATE 05/13/2018 PHYLLIS NIETO MD Ot E78.5 HYPERLIPIDEMIA, UNSPECIFIED 05/13/2018 PHYLLIS NIETO MD Ot 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AL AND T 05/13/2018 PHYLLIS NIETO MD Ot I10 ESSENTIAL (PRIMARY) HYPERTENSION 05/13/2018 PHYLLIS NIETO MD Ot I25.10 ATHSCL HEART DISEASE OF [place] CORONARY 05/13/2018 PHYLLIS NIETO MD Ot R07.9 CHEST PAIN, UNSPECIFIED 05/13/2018 PHYLLIS NIETO MD Ot Z72.0 TOBACCO USE 05/13/2018 PHYLLIS NIETO MD Ot E78.5 HYPERLIPIDEMIA, UNSPECIFIED 05/13/2018 PHYLLIS NIETO MD Ot 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AL AND T 05/13/2018 PHYLLIS NIETO MD Ot I10 ESSENTIAL (PRIMARY) HYPERTENSION 05/13/2018 PHYLLIS NIETO MD Ot I25.10 ATHSCL HEART DISEASE OF [place] CORONARY 05/13/2018 PHYLLIS NIETO MD Ot R07.9 [...] MD Ot I25.10 ATHSCL HEART DISEASE OF [place] CORONARY 05/22/2018 PHYLLIS NIETO MD Ot R07.9 CHEST PAIN, UNSPECIFIED 05/22/2018 PHYLLIS NIETO MD Ot Z72.0 TOBACCO USE 05/28/2018 PHYLLIS NIETO MD Ot D64.9 ANEMIA, UNSPECIFIED 06/02/2018 WILBERT, BOBAN N Ot D64.9 ANEMIA, UNSPECIFIED 06/02/2018 WILBERT, ROHINIAN N Ot 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 AUTONOMIC (PO 06/02/2018 WILBERT, ROHINIAN N Ot E78.5 HYPERLIPIDEMIA, UNSPECIFIED 06/02/2018 WILBERT, BOBAN N Ot F17.210 NICOTINE DEPENDENCE, CIGARETTES, UNCOMPL 06/02/2018 WILBERT, BOBAN N Ot I10 ESSENTIAL (PRIMARY) HYPERTENSION 06/02/2018 WILBERTROHINIAN N Ot I25.10 ATHSCL HEART DISEASE OF [place] CORONARY 06/02/2018 WILBERT BOBSHREYA N Ot I73.9 PERIPHERAL VASCULAR DISEASE, UNSPECIFIED 06/02/2018 WILBERTVIJAY N Ot R42 DIZZINESS AND GIDDINESS 06/02/2018 VIJAY ATKINS N Ot Z79.4 USP (CURRENT) USE OF INSULIN 06/02/2018 VIJAY ATKINS N Ot Z79.899 OTHER USP (CURRENT) DRUG THERAPY 06/02/2018 VIJAY ATKINS N Ot Z95.1 PRESENCE OF AORTOCORONARY BYPASS GRAFT 06/02/2018 VIJAY ATKINS N Ot Z95.820 PERIPHERAL VASCULAR ANGIOPLASTY STATUS W 06/09/2018 WILBERT VIJAY N Ot D64.9 ANEMIA, UNSPECIFIED 06/09/2018 WILBERT, BOBAN N Ot 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 AUTONOMIC (PO 06/09/2018 WILBERT, VIJAY N Ot E78.5 HYPERLIPIDEMIA, UNSPECIFIED 06/09/2018 WILBERT VIJAY N Ot F17.210 NICOTINE DEPENDENCE, CIGARETTES, UNCOMPL 06/09/2018 WILBERTVIJAY N Ot I10 ESSENTIAL (PRIMARY) HYPERTENSION 06/09/2018 WILBERTVIJAY N Ot I25.10 ATHSCL HEART DISEASE OF [place] CORONARY 06/09/2018 WILBERTVIJAY N Ot I73.9 PERIPHERAL VASCULAR DISEASE, UNSPECIFIED 06/09/2018 VIJAY ATKINS N Ot R42 DIZZINESS AND GIDDINESS 06/09/2018 WILBERTVIJAY N Ot Z79.4 USP (CURRENT) USE OF INSULIN 06/09/2018 VIJAY ATKINS N Ot Z79.899 OTHER CORRECTIVE THERAPIST (CURRENT) DRUG THERAPY 06/09/2018 VIJAY ATKINS N Ot Z95.1 PRESENCE OF AORTOCORONARY BYPASS GRAFT 06/09/2018 VIJAY ATKINS N Ot Z95.820 PERIPHERAL VASCULAR ANGIOPLASTY STATUS W 07/04/2018 Ot E11.9 TYPE 2 DIABETES MELLITUS WITHOUT COMPLIC 07/04/2018 Ot E78.5 HYPERLIPIDEMIA, UNSPECIFIED 07/04/2018 Ot I10 ESSENTIAL ( PRIMARY) HYPERTENSION 07/04/2018 Ot I25.10 ATHSCL HEART DISEASE OF [place] CORONARY 07/17/2018 WILBERTVIJAY PLASCENCIA N Ot D64.9 ANEMIA, UNSPECIFIED 07/17/2018 WILBERT, BOBSHREYA N Ot 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 AUTONOMIC (PO 07/17/2018 WILBERTVIJAY N Ot E78.5 HYPERLIPIDEMIA, UNSPECIFIED 07/17/2018 WILBERT, BOBAN N Ot F17.210 NICOTINE DEPENDENCE, CIGARETTES, UNCOMPL 07/17/2018 WILBERT, BOBAN N Ot I10 ESSENTIAL (PRIMARY) HYPERTENSION 07/17/2018 WILBERTROHINISHREYA N Ot I25.10 ATHSCL HEART DISEASE OF [place] CORONARY 07/17/2018 WILBERTVIJAY N Ot I73.9 PERIPHERAL VASCULAR DISEASE, UNSPECIFIED 07/17/2018 WILBERTVIJAY N Ot R42 DIZZINESS AND GIDDINESS 07/17/2018 WILBERT VIJAY N Ot Z79.4 USP (CURRENT) USE OF INSULIN 07/17/2018 WILBERT VIJAY N Ot Z79.899 OTHER CORRECTIVE THERAPIST (CURRENT) DRUG THERAPY 07/17/2018 WILBERT VIJAY N Ot Z95.1 PRESENCE OF AORTOCORONARY BYPASS GRAFT 07/17/2018 WILBERT VIJAY N Ot Z95.820 PERIPHERAL VASCULAR ANGIOPLASTY STATUS W 07/18/2018 WILBERT VIJAY N Ot D64.9 ANEMIA, UNSPECIFIED 07/18/2018 WILBERT VIJAY N Ot 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 AUTONOMIC (PO 07/18/2018 WILBERTVIJAY N Ot E78.5 HYPERLIPIDEMIA, UNSPECIFIED 07/18/2018 WILBERT BOBAN N Ot F17.210 NICOTINE DEPENDENCE, CIGARETTES, UNCOMPL 07/18/2018 WILBERT, BOBAN N Ot I10 ESSENTIAL (PRIMARY) HYPERTENSION 07/18/2018 WILBERT, VIJAY N Ot I25.10 ATHSCL HEART DISEASE OF [place] CORONARY 07/18/2018 WILBERTVIJAY N Ot I73.9 PERIPHERAL VASCULAR DISEASE, UNSPECIFIED 07/18/2018 VIJAY ATKINS N Ot R42 DIZZINESS AND GIDDINESS 07/18/2018 VIJAY ATKINS N Ot Z79.4 USP (CURRENT) USE OF INSULIN 07/18/2018 VIJAY ATKINS N Ot Z79.899 OTHER CORRECTIVE THERAPIST (CURRENT) DRUG THERAPY 07/18/2018 VIJAY ATKINS N Ot Z95.1 PRESENCE OF AORTOCORONARY BYPASS GRAFT 07/18/2018 VIJAY ATKINS N Ot Z95.820 PERIPHERAL VASCULAR ANGIOPLASTY STATUS W 07/18/2018 VIJAY ATKINS N Ot D64.9 ANEMIA, UNSPECIFIED 07/18/2018 WLIBERTVIJAY PLASCENCIA N Ot 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 AUTONOMIC (PO 07/18/2018 WILBERT VIJAY N Ot E78.5 HYPERLIPIDEMIA, UNSPECIFIED 07/18/2018 VIJAY ATKINS N Ot F17.210 NICOTINE DEPENDENCE, CIGARETTES, UNCOMPL 07/18/2018 WILBERT BOBSHREYA N Ot I10 ESSENTIAL (PRIMARY) HYPERTENSION 07/18/2018 WILBERT VIJAY N Ot I25.10 ATHSCL HEART DISEASE OF [place] CORONARY 07/18/2018 VIJAY ATKINS N Ot I73.9 PERIPHERAL VASCULAR DISEASE, UNSPECIFIED 07/18/2018 VIJAY ATKINS N Ot R42 DIZZINESS AND GIDDINESS 07/18/2018 WILBERT VIJAY N Ot Z79.4 USP (CURRENT) USE OF INSULIN 07/18/2018 VIJAY ATKINS N Ot Z79.899 OTHER CORRECTIVE THERAPIST (CURRENT) DRUG THERAPY 07/18/2018 VIJAY ATKINS N Ot Z95.1 PRESENCE OF AORTOCORONARY BYPASS GRAFT 07/18/2018 WILBERT VIJAY N Ot Z95.820 PERIPHERAL VASCULAR ANGIOPLASTY STATUS W 08/14/2018 Ot D50.0 IRON 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 08/14/2018 Ot E11.9 TYPE 2 DIABETES MELLITUS WITHOUT COMPLIC 08/14/2018 Ot E78.5 HYPERLIPIDEMIA, UNSPECIFIED 08/14/2018 Ot I10 ESSENTIAL ( PRIMARY) HYPERTENSION 08/14/2018 Ot I25.10 ATHSCL HEART DISEASE OF [place] CORONARY 08/19/2018 WILBERT VIJAY N Ot D64.9 ANEMIA, UNSPECIFIED 08/19/2018 WILBERT ROHINISHREYA N Ot 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 AUTONOMIC (PO 08/19/2018 VIJAY ATKINS Ot E78.5 HYPERLIPIDEMIA, UNSPECIFIED 08/19/2018 VIJAY ATKINS Ot F17.210 NICOTINE DEPENDENCE, CIGARETTES, UNCOMPL 08/19/2018 VIJAY ATKINS Ot I10 ESSENTIAL (PRIMARY) HYPERTENSION 08/19/2018 VIJAY ATKINS Ot I25.10 ATHSCL HEART DISEASE OF [place] CORONARY 08/19/2018 VIJAY ATKINS Ot I73.9 PERIPHERAL VASCULAR DISEASE, UNSPECIFIED 08/19/2018 VIJAY ATKINS Ot R42 DIZZINESS AND GIDDINESS 08/19/2018 VIJAY ATKINS Ot Z79.4 CORRECTIVE THERAPIST (CURRENT) USE OF INSULIN 08/19/2018 VIJAY ATKINS Ot Z79.899 OTHER CORRECTIVE THERAPIST (CURRENT) DRUG THERAPY 08/19/2018 VIJAY ATKINS Ot Z95.1 PRESENCE OF AORTOCORONARY BYPASS GRAFT 08/19/2018 VIJAY ATKINS Ot Z95.820 PERIPHERAL VASCULAR ANGIOPLASTY STATUS W 08/20/2018 Ot D50.0 IRON 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 08/20/2018 Ot D50.0 IRON 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 08/20/2018 Ot E11.9 TYPE 2 DIABETES MELLITUS WITHOUT COMPLIC 08/20/2018 Ot E78.5 HYPERLIPIDEMIA, UNSPECIFIED 08/20/2018 Ot I10 ESSENTIAL ( PRIMARY) HYPERTENSION 08/20/2018 Ot I25.10 ATHSCL HEART DISEASE OF [place] CORONARY 08/28/2018 Ot D50.0 IRON DEFICIENCY ANEMIA [...] MD Ot I25.10 ATHSCL HEART DISEASE OF [place] CORONARY 09/29/2018 PHYLLIS NIETO MD Ot Z72.0 TOBACCO USE 09/29/2018 ALAN ROD MD Ot I25.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 09/29/2018 VIOLA BARKER, ALAN Ot J90 PLEURAL EFFUSION, NOT ELSEWHERE CLASSIFI 09/29/2018 PHYLLIS NIETO MD Ot E78.5 HYPERLIPIDEMIA, UNSPECIFIED 09/29/2018 PHYLLIS NIETO MD Ot 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AL AND T 09/29/2018 PHYLLIS NIETO MD Ot I10 ESSENTIAL (PRIMARY) HYPERTENSION 09/29/2018 PHYLLIS NIETO MD Ot I25.10 ATHSCL HEART DISEASE OF [place] CORONARY 09/29/2018 PHYLLIS NIETO MD Ot R07.9 CHEST PAIN, UNSPECIFIED 09/29/2018 PHYLLIS NIETO MD Ot Z72.0 TOBACCO USE 09/29/2018 PHYLLIS NIETO MD Ot D64.9 ANEMIA, UNSPECIFIED 09/29/2018 Ot D50.0 IRON 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 09/29/2018 Ot E11.9 TYPE 2 DIABETES MELLITUS WITHOUT COMPLIC 09/29/2018 Ot E78.5 HYPERLIPIDEMIA, UNSPECIFIED 09/29/2018 Ot I10 ESSENTIAL ( PRIMARY) HYPERTENSION 09/29/2018 Ot I25.10 ATHSCL HEART DISEASE OF [place] CORONARY 09/29/2018 VIJAY ATKINS Ot D64.9 ANEMIA, UNSPECIFIED 09/29/2018 VIJAY ATKINS Ot 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 AUTONOMIC (PO 09/29/2018 VIJAY ATKINS Ot E78.5 HYPERLIPIDEMIA, UNSPECIFIED 09/29/2018 IVJAY ATKINS Ot F17.210 NICOTINE DEPENDENCE, CIGARETTES, UNCOMPL 09/29/2018 VIJAY ATKINS Ot I10 ESSENTIAL (PRIMARY) HYPERTENSION 09/29/2018 VIJAY ATKINS Ot I25.10 ATHSCL HEART DISEASE OF [place] CORONARY 09/29/2018 VIJAY ATKINS Ot I73.9 PERIPHERAL VASCULAR DISEASE, UNSPECIFIED 09/29/2018 VIJAY ATKINS Ot R42 DIZZINESS AND GIDDINESS 09/29/2018 VIJAY ATKINS Ot Z79.4 CORRECTIVE THERAPIST (CURRENT) USE OF INSULIN 09/29/2018 VIJAY ATKINS Ot Z79.899 OTHER USP (CURRENT) DRUG THERAPY 09/29/2018 WILBERT, BOBAN N Ot Z95.1 PRESENCE OF AORTOCORONARY BYPASS GRAFT 09/29/2018 VIJAY ATKINS N Ot Z95.820 PERIPHERAL VASCULAR ANGIOPLASTY STATUS W 10/19/2018 KIRSTEN GAFFNEY MD Ot D50.0 IRON 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 10/19/2018 KIRSTEN GAFFNEY MD Ot 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 AUTONOMIC (PO 10/19/2018 KIRSTEN GAFFNEY MD Ot E11.65 TYPE 2 DIABETES MELLITUS WITH HYPERGLYCE 10/19/2018 KIRSTEN GAFFNEY MD Ot E78.00 PURE HYPERCHOLESTEROLEMIA, UNSPECIFIED 10/19/2018 KIRSTEN GAFFNEY MD Ot E83.42 HYPOMAGNESEMIA 10/19/2018 KIRSTEN GAFFNEY MD Ot E86.0 DEHYDRATION 10/19/2018 KIRSTEN GAFFNEY MD Ot I10 ESSENTIAL (PRIMARY) HYPERTENSION 10/19/2018 KIRSTEN GAFFNEY MD Ot I25.10 ATHSCL HEART DISEASE OF [place] CORONARY 10/19/2018 KIRSTEN GAFFNEY MD Ot I25.2 OLD MYOCARDIAL INFARCTION 10/19/2018 KIRSTEN GAFFNEY MD Ot I73.9 PERIPHERAL VASCULAR DISEASE, UNSPECIFIED 10/19/2018 KIRSTEN GAFFNEY MD Ot I95.1 ORTHOSTATIC HYPOTENSION 10/19/2018 KIRSTEN GAFFNEY MD Ot K92.2 GASTROINTESTINAL HEMORRHAGE, UNSPECIFIED 10/19/2018 KIRSTEN GAFFNEY MD Ot S09.8XXA OTHER SPECIFIED INJURIES OF HEAD, INITIA 10/19/2018 KIRSTEN GAFFNEY MD Ot W18.00XA STRIKING AGAINST UNSP OBJECT W SUBSEQUEN 10/19/2018 KIRSTEN GAFFNEY MD Ot Y92.010 KITCHEN OF SINGLE-FAMILY (PRIVATE) HOUSE 10/19/2018 KIRSTEN GAFFNEY MD Ot Z79.4 USP (CURRENT) USE OF INSULIN 10/19/2018 KIRSTEN GAFFNEY [...] NEOPLASM OF [place] 10/27/2018 UDAY SALAZAR MD R Ot 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 10/27/2018 UDAY SALAZAR MD R Ot R16.0 HEPATOMEGALY, NOT ELSEWHERE CLASSIFIED 10/27/2018 Ot D50.0 IRON 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 10/27/2018 OLIVIA SORENSON MD, Ot Z01.818 ENCOUNTER FOR OTHER PREPROCEDURAL EXAMIN 10/28/2018 OLIVIA SORENSON MD, Ot Z01.818 ENCOUNTER FOR OTHER PREPROCEDURAL EXAMIN 10/31/2018 OLIVIA SORENSON MD, Ot D64.9 ANEMIA, UNSPECIFIED 10/31/2018 OLIVIA SORENSON MD Ot E11.9 TYPE 2 DIABETES MELLITUS WITHOUT COMPLIC 10/31/2018 OLIVIA SORENSON MD, Ot E78.00 PURE HYPERCHOLESTEROLEMIA, UNSPECIFIED 10/31/2018 OLIVIA SORENSON MD, Ot F32.9 MAJOR DEPRESSIVE DISORDER, SINGLE EPISOD 10/31/2018 OLIVIA SORENSON MD, Ot F41.9 ANXIETY DISORDER, UNSPECIFIED 10/31/2018 OLIVIA SORENSON MD, Ot I25.10 ATHSCL HEART DISEASE OF [place] CORONARY 10/31/2018 OLIVIA SORENSON MD, Ot K21.0 GASTRO-ESOPHAGEAL REFLUX DISEASE WITH ES 10/31/2018 OLIVIA SORENSON MD, Ot K29.70 GASTRITIS, UNSPECIFIED, WITHOUT BLEEDING 10/31/2018 OLIVIA SORENSON MD, Ot K44.9 DIAPHRAGMATIC HERNIA WITHOUT OBSTRUCTION 10/31/2018 OLIVIA SORENSON MD, Ot Z79.4 CORRECTIVE THERAPIST (CURRENT) USE OF INSULIN 10/31/2018 OLIVIA SORENSON MD, Ot Z79.82 USP (CURRENT) USE OF ASPIRIN 10/31/2018 OLIVIA SORENSON MD, Ot Z79.899 OTHER CORRECTIVE THERAPIST (CURRENT) DRUG THERAPY 10/31/2018 OLIVIA SORENSON MD, Ot Z80.0 FAMILY HISTORY OF MALIGNANT NEOPLASM OF 10/31/2018 OLIVIA SORENSON MD, Ot Z86.010 PERSONAL HISTORY OF COLONIC POLYPS 10/31/2018 OLIVIA SORENSON MD, Ot Z87.891 PERSONAL HISTORY OF NICOTINE DEPENDENCE 10/31/2018 OLIVIA SORENSON MD, Ot Z95.1 PRESENCE OF AORTOCORONARY BYPASS GRAFT 10/31/2018 VIJAY ATKINS Ot D64.9 ANEMIA, UNSPECIFIED 10/31/2018 VIJAY ATKINS Ot 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 AUTONOMIC (PO 10/31/2018 VIJAY ATKINS Ot E78.5 HYPERLIPIDEMIA, UNSPECIFIED 10/31/2018 VIJAY ATKINS Ot F17.210 NICOTINE DEPENDENCE, CIGARETTES, UNCOMPL 10/31/2018 VIJAY ATKINS Ot I10 ESSENTIAL (PRIMARY) HYPERTENSION 10/31/2018 VIJAY ATKINS Ot I25.10 ATHSCL HEART DISEASE OF [place] CORONARY 10/31/2018 VIJAY ATKINS Ot I73.9 PERIPHERAL VASCULAR DISEASE, UNSPECIFIED 10/31/2018 VIJAY ATKINS Ot R42 DIZZINESS AND GIDDINESS 10/31/2018 VIJAY ATKINS Ot Z79.4 CORRECTIVE THERAPIST (CURRENT) USE OF INSULIN 10/31/2018 VIJAY ATKINS Ot Z79.899 OTHER CORRECTIVE THERAPIST (CURRENT) DRUG THERAPY 10/31/2018 VIJAY ATKINS Ot Z95.1 PRESENCE OF AORTOCORONARY BYPASS GRAFT 10/31/2018 VIJAY ATKINS Ot Z95.820 PERIPHERAL VASCULAR ANGIOPLASTY STATUS W 11/04/2018 OLIVIA SORENSON MD, Ot D64.9 ANEMIA, UNSPECIFIED 11/04/2018 OLIVIA SORENSON MD, Ot E11.9 TYPE 2 DIABETES MELLITUS WITHOUT COMPLIC 11/04/2018 OLIVIA SORENSON MD, Ot E78.00 PURE HYPERCHOLESTEROLEMIA, UNSPECIFIED 11/04/2018 OLIVIA SORENSON MD, Ot F32.9 MAJOR DEPRESSIVE DISORDER, SINGLE EPISOD 11/04/2018 OLIVIA SORENSON MD, Ot F41.9 ANXIETY DISORDER, UNSPECIFIED 11/04/2018 OLIVIA SORENSON MD, Ot I25.10 ATHSCL HEART DISEASE OF [place] CORONARY 11/04/2018 OLIVIA SORENSON MD, Ot K21.0 GASTRO-ESOPHAGEAL REFLUX DISEASE WITH ES 11/04/2018 OLIVIA SORENSON MD, Ot K29.70 GASTRITIS, UNSPECIFIED, WITHOUT BLEEDING 11/04/2018 OLIVIA SORENSON MD, Ot K44.9 DIAPHRAGMATIC HERNIA WITHOUT OBSTRUCTION 11/04/2018 OLIVIA SORENSON MD, Ot Z79.4 CORRECTIVE THERAPIST (CURRENT) USE OF INSULIN 11/04/2018 OLIVIA SORENSON MD, Ot Z79.82 USP (CURRENT) USE OF ASPIRIN 11/04/2018 OLIVIA SORENSON MD, Ot Z79.899 OTHER CORRECTIVE THERAPIST (CURRENT) DRUG THERAPY 11/04/2018 OLIVIA SORENSON MD, Ot Z80.0 FAMILY HISTORY OF MALIGNANT NEOPLASM OF 11/04/2018 OLIVIA SORENSON MD, Ot Z86.010 PERSONAL HISTORY OF COLONIC POLYPS 11/04/2018 OLIVIA SORENSON MD, Ot Z87.891 PERSONAL HISTORY OF NICOTINE DEPENDENCE 11/04/2018 OLIVIA SORENSON MD, Ot Z95.1 PRESENCE OF AORTOCORONARY BYPASS GRAFT 11/04/2018 OLIVIA SORENSON MD, Ot D64.9 ANEMIA, UNSPECIFIED 11/04/2018 OLIVIA SORENSON MD Ot E11.9 TYPE 2 DIABETES MELLITUS WITHOUT COMPLIC 11/04/2018 OLIVIA SORENSON MD Ot E78.00 PURE HYPERCHOLESTEROLEMIA, UNSPECIFIED 11/04/2018 OLIVIA SORENSON MD Ot F32.9 MAJOR DEPRESSIVE DISORDER, SINGLE EPISOD 11/04/2018 OLIVIA SORENSON MD, Ot F41.9 ANXIETY DISORDER, UNSPECIFIED 11/04/2018 OLIVIA SORENSON MD, Ot I25.10 ATHSCL HEART DISEASE OF [place] CORONARY 11/04/2018 OLIVIA SORENSON MD, Ot K21.0 GASTRO-ESOPHAGEAL REFLUX DISEASE WITH ES 11/04/2018 OLIVIA SORENSON MD, Ot K29.70 GASTRITIS, UNSPECIFIED, WITHOUT BLEEDING 11/04/2018 OLIVIA SORENSON MD, Ot K44.9 DIAPHRAGMATIC HERNIA WITHOUT OBSTRUCTION 11/04/2018 OLIVIA SORENSON MD, Ot Z79.4 USP (CURRENT) USE OF INSULIN 11/04/2018 KIDO MD, TAKAAKI Ot Z79.82 USP (CURRENT) USE OF ASPIRIN 11/04/2018 OLIVIA SORENSON MD Ot Z79.899 OTHER CORRECTIVE THERAPIST (CURRENT) DRUG THERAPY 11/04/2018 OLIVIA SORENSON MD, Ot Z80.0 FAMILY HISTORY OF MALIGNANT NEOPLASM OF 11/04/2018 OLIVIA SORENSON MD, Ot Z86.010 PERSONAL HISTORY OF COLONIC POLYPS 11/04/2018 OLIVIA SORENSON MD, Ot Z87.891 PERSONAL HISTORY OF NICOTINE DEPENDENCE 11/04/2018 OLIVIA SORENSON MD Ot Z95.1 PRESENCE OF AORTOCORONARY BYPASS GRAFT 11/05/2018 OLIVIA SORENSON MD, Ot D64.9 ANEMIA, UNSPECIFIED 11/05/2018 OLIVIA SORENSON MD Ot E11.9 TYPE 2 DIABETES MELLITUS WITHOUT COMPLIC 11/05/2018 OLIVIA SORENSON MD Ot E78.00 PURE HYPERCHOLESTEROLEMIA, UNSPECIFIED 11/05/2018 OLIVIA SORENSON MD Ot F32.9 MAJOR DEPRESSIVE DISORDER, SINGLE EPISOD 11/05/2018 OLIVIA SORENSON MD, Ot F41.9 ANXIETY DISORDER, UNSPECIFIED 11/05/2018 OLIVIA SORENSON MD, Ot I25.10 ATHSCL HEART DISEASE OF [place] CORONARY 11/05/2018 OLIVIA SORENSON MD Ot K21.0 GASTRO-ESOPHAGEAL REFLUX DISEASE WITH ES 11/05/2018 OLIVIA SORENSON MD Ot K29.70 GASTRITIS, UNSPECIFIED, WITHOUT BLEEDING 11/05/2018 OLIVIA SORENSON MD Ot K44.9 DIAPHRAGMATIC HERNIA WITHOUT OBSTRUCTION 11/05/2018 OLIVIA SORENSON MD, Ot Z79.4 USP (CURRENT) USE OF INSULIN 11/05/2018 OLIVIA SORENSON MD, Ot Z79.82 USP (CURRENT) USE OF ASPIRIN 11/05/2018 OLIVIA SORENSON MD, Ot Z79.899 OTHER CORRECTIVE THERAPIST (CURRENT) DRUG THERAPY 11/05/2018 OLIVIA SORENSON MD, Ot Z80.0 FAMILY HISTORY OF MALIGNANT NEOPLASM OF 11/05/2018 OLIVIA SORENSON MD, Ot Z86.010 PERSONAL HISTORY OF COLONIC POLYPS 11/05/2018 OLIVIA SORENSON MD, Ot Z87.891 PERSONAL HISTORY OF NICOTINE DEPENDENCE 11/05/2018 OLIVIA SORENSON MD Ot Z95.1 PRESENCE OF AORTOCORONARY BYPASS GRAFT 11/12/2018 PRAVEEN VILLAVICENCIO Ot E11.9 TYPE 2 DIABETES MELLITUS WITHOUT COMPLIC 11/12/2018 PRAVEEN VILLAVICENCIO Ot E78.2 MIXED HYPERLIPIDEMIA 11/12/2018 PRAVEEN VILLAVICENCIO Ot I10 ESSENTIAL (PRIMARY) HYPERTENSION 11/12/2018 PRAVEEN VILLAVICENCIO Ot I25.10 ATHSCL HEART DISEASE OF [place] CORONARY 11/12/2018 MARTIN BARKER, UDAY R Ot R10.12 LEFT UPPER QUADRANT PAIN 11/12/2018 MARTIN BARKER, UDAY R Ot R93.8 ABNORMAL FINDINGS ON DIAGNOSTIC IMAGING 11/12/2018 Ot 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4 CORRECTIVE THERAPIST (CURRENT) USE OF INSULIN 11/12/2018 VIJAY ATKINS Ot Z79.899 OTHER USP (CURRENT) DRUG THERAPY 11/12/2018 VIJAY ATKINS Ot Z95.1 PRESENCE OF AORTOCORONARY BYPASS GRAFT 11/12/2018 VIJAY ATKINS Ot Z95.820 PERIPHERAL VASCULAR ANGIOPLASTY STATUS W 11/12/2018 PHYLLIS NIETO MD Ot Z48.812 ENCNTR FOR SURGICAL AFTCR FOLLOWING SURG 11/12/2018 PHYLLIS NIETO MD Ot Z95.1 PRESENCE OF AORTOCORONARY BYPASS GRAFT 11/12/2018 VIJAY ATKINS Ot D64.9 ANEMIA, UNSPECIFIED 11/12/2018 WILBERTROHINIAN N Ot 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 AUTONOMIC (PO 11/12/2018 WILBERTROHINIAN N Ot E78.5 HYPERLIPIDEMIA, UNSPECIFIED 11/12/2018 WILBERT, BOBAN N Ot F17.210 NICOTINE DEPENDENCE, CIGARETTES, UNCOMPL 11/12/2018 WILBERT, BOBAN N Ot I10 ESSENTIAL (PRIMARY) HYPERTENSION 11/12/2018 WILBERTROHINIAN N Ot I25.10 ATHSCL HEART DISEASE OF [place] CORONARY 11/12/2018 WILBERT BOBSHREYA N Ot I73.9 PERIPHERAL VASCULAR DISEASE, UNSPECIFIED 11/12/2018 WILBERT BOBAN N Ot R42 DIZZINESS AND GIDDINESS 11/12/2018 WILBERTVIJAY N Ot Z79.4 USP (CURRENT) USE OF INSULIN 11/12/2018 WILBERT, BOBAN N Ot Z79.899 OTHER CORRECTIVE THERAPIST (CURRENT) DRUG THERAPY 11/12/2018 WILBERT, BOBAN N Ot Z95.1 PRESENCE OF AORTOCORONARY BYPASS GRAFT 11/12/2018 VIJAY ATKINS N Ot Z95.820 PERIPHERAL VASCULAR ANGIOPLASTY STATUS W 11/20/2018 WILBERTVIJAY N Ot D64.9 ANEMIA, UNSPECIFIED 11/20/2018 WILBERT, BOBAN N Ot 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 AUTONOMIC (PO 11/20/2018 WILBERT VIJAY N Ot E78.5 HYPERLIPIDEMIA, UNSPECIFIED 11/20/2018 WILBERTROHINIAN N Ot F17.210 NICOTINE DEPENDENCE, CIGARETTES, UNCOMPL 11/20/2018 WILBERTVIJAY N Ot I10 ESSENTIAL (PRIMARY) HYPERTENSION 11/20/2018 WILBERTVIJAY N Ot I25.10 ATHSCL HEART DISEASE OF [place] CORONARY 11/20/2018 WILBERTVIJAY N Ot I73.9 PERIPHERAL VASCULAR DISEASE, UNSPECIFIED 11/20/2018 WILBERTVIJAY N Ot R42 DIZZINESS AND GIDDINESS 11/20/2018 WILBERTVIJAY N Ot Z79.4 CORRECTIVE THERAPIST (CURRENT) USE OF INSULIN 11/20/2018 WILBERTVIJAY N Ot Z79.899 OTHER CORRECTIVE THERAPIST (CURRENT) DRUG THERAPY 11/20/2018 WILBERTVIJAY N Ot Z95.1 PRESENCE OF AORTOCORONARY BYPASS GRAFT 11/20/2018 VIJAY ATKINS Ot Z95.820 PERIPHERAL VASCULAR ANGIOPLASTY STATUS W 12/28/2018 GERSON BARKER, PHYLLIS Morales Ot Z48.812 ENCNTR FOR SURGICAL AFTCR FOLLOWING SURG 12/28/2018 PHYLLIS NIETO MD Ot Z95.1 PRESENCE OF AORTOCORONARY BYPASS GRAFT 12/29/2018 PHYLLIS NIETO MD Ot Z48.812 ENCNTR FOR SURGICAL AFTCR FOLLOWING SURG 12/29/2018 PHYLLIS NIETO MD Ot Z95.1 PRESENCE OF AORTOCORONARY BYPASS GRAFT 02/06/2019 VIJAY ATKINS Ot D64.9 ANEMIA, UNSPECIFIED 02/06/2019 VIJAY ATKINS N Ot 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 AUTONOMIC (PO 02/06/2019 VIJAY ATKINS Ot E78.5 HYPERLIPIDEMIA, UNSPECIFIED 02/06/2019 VIJAY ATKINS N Ot F17.210 NICOTINE DEPENDENCE, CIGARETTES, UNCOMPL 02/06/2019 VIJAY ATKINS N Ot I10 ESSENTIAL (PRIMARY) HYPERTENSION 02/06/2019 VIJAY ATKINS N Ot I25.10 ATHSCL HEART DISEASE OF [place] CORONARY 02/06/2019 VIJAY ATKINS Ot I73.9 PERIPHERAL VASCULAR DISEASE, UNSPECIFIED 02/06/2019 VIJAY ATKINS Ot R42 DIZZINESS AND GIDDINESS 02/06/2019 VIJAY ATKINS Ot Z79.4 USP (CURRENT) USE OF INSULIN 02/06/2019 VIJAY ATKINS Ot Z79.899 OTHER CORRECTIVE THERAPIST (CURRENT) DRUG THERAPY 02/06/2019 VIJAY ATKINS Ot Z95.1 PRESENCE OF AORTOCORONARY BYPASS GRAFT 02/06/2019 VIJAY ATKINS Ot Z95.820 PERIPHERAL VASCULAR ANGIOPLASTY STATUS W 02/18/2019 VIJAY ATKINS Ot D64.9 ANEMIA, UNSPECIFIED 02/18/2019 VIJAY ATKINS N Ot 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 AUTONOMIC (PO 02/18/2019 VIJAY ATKINS N Ot E78.5 HYPERLIPIDEMIA, UNSPECIFIED 02/18/2019 VIJAY ATKINS N Ot F17.210 NICOTINE DEPENDENCE, CIGARETTES, UNCOMPL 02/18/2019 VIJAY ATKINS N Ot I10 ESSENTIAL (PRIMARY) HYPERTENSION 02/18/2019 VIJAY ATKINS N Ot I25.10 ATHSCL HEART DISEASE OF [place] CORONARY 02/18/2019 VIJAY ATKINS Ot I73.9 PERIPHERAL VASCULAR DISEASE, UNSPECIFIED 02/18/2019 VIJAY ATKINS Ot R42 DIZZINESS AND GIDDINESS 02/18/2019 VIJAY ATKINS Ot Z79.4 USP (CURRENT) USE OF INSULIN 02/18/2019 VIJAY ATKINS Ot Z79.899 OTHER USP (CURRENT) DRUG THERAPY 02/18/2019 VIJAY ATKINS Ot Z95.1 PRESENCE OF AORTOCORONARY BYPASS GRAFT 02/18/2019 VIJAY ATKINS Ot Z95.820 PERIPHERAL VASCULAR ANGIOPLASTY STATUS W 02/19/2019 PRAVEEN VILLAVICENCIO Ot E78.5 HYPERLIPIDEMIA, UNSPECIFIED 02/19/2019 PRAVEEN VILLAVICENCIO Ot I07.1 RHEUMATIC TRICUSPID INSUFFICIENCY 02/19/2019 PRAVEEN VILLAVICENCIO Ot I10 ESSENTIAL (PRIMARY) HYPERTENSION 02/19/2019 PRAVEEN VILLAVICENCIO Ot I25.10 ATHSCL HEART DISEASE OF [place] CORONARY 02/19/2019 PRAVEEN VILLAVICENCIO Ot R07.9 CHEST PAIN, UNSPECIFIED 02/19/2019 VIJAY ATKINS Ot D64.9 ANEMIA, UNSPECIFIED 02/19/2019 VIJAY ATKINS Ot 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 AUTONOMIC (PO 02/19/2019 VIJAY ATKINS Ot E78.5 HYPERLIPIDEMIA, UNSPECIFIED 02/19/2019 VIJAY ATKINS Ot F17.210 NICOTINE DEPENDENCE, CIGARETTES, UNCOMPL 02/19/2019 VIJAY ATKINS Ot I10 ESSENTIAL (PRIMARY) HYPERTENSION 02/19/2019 VIJAY ATKINS Ot I25.10 ATHSCL HEART DISEASE OF [place] CORONARY 02/19/2019 VIJAY ATKINS Ot I73.9 PERIPHERAL VASCULAR DISEASE, UNSPECIFIED 02/19/2019 VIJAY ATKINS Ot R42 DIZZINESS AND GIDDINESS 02/19/2019 VIJAY ATKINS Ot Z79.4 CORRECTIVE THERAPIST (CURRENT) USE OF INSULIN 02/19/2019 VIJAY ATKINS Ot Z79.899 OTHER USP (CURRENT) DRUG THERAPY 02/19/2019 VIJAY ATKINS Ot Z95.1 PRESENCE OF AORTOCORONARY BYPASS GRAFT 02/19/2019 VIJAY ATKINS Ot Z95.820 PERIPHERAL VASCULAR ANGIOPLASTY STATUS W 02/24/2019 PRAVEEN VILLAVICENCIO Ot E78.5 HYPERLIPIDEMIA, UNSPECIFIED 02/24/2019 PRAVEEN VILLAVICENCIO Ot I07.1 RHEUMATIC TRICUSPID INSUFFICIENCY 02/24/2019 PRAVEEN VILLAVICENCIO Ot I10 ESSENTIAL (PRIMARY) HYPERTENSION 02/24/2019 PRAVEEN VILLAVICENCIO Ot I25.10 ATHSCL HEART DISEASE OF [place] CORONARY 02/24/2019 PRAVEEN VILLAVICENCIO Ot R07.9 CHEST PAIN, UNSPECIFIED 02/26/2019 PRAVEEN VILLAVICENCIO Ot E78.5 HYPERLIPIDEMIA, UNSPECIFIED 02/26/2019 PRAVEEN VILLAVICENCIO Ot I10 ESSENTIAL (PRIMARY) HYPERTENSION 02/26/2019 PRAVEEN VILLAVICENCIO Ot I25.10 ATHSCL HEART DISEASE OF [place] CORONARY 02/26/2019 PRAVEEN VILLAVICENCIO Ot R07.9 CHEST PAIN, UNSPECIFIED Procedures There is no data. Results Test [...] ABO+Rh group ABP NRG Transfusion band number [id number] NRG Blood group antibody screen NEGATIVE NRG [...] RED CELLS LEUKO REDUCED AS1 TRANSFUSED 10/18/18 2314 NRG Blood type T Indirect antibody screen panel - 10/18/18 18:35 ABO+Rh group ABP NRG Transfusion band number [id number] NRG Blood group antibody screen NEGATIVE NRG Complete urinalysis with reflex to culture - [...] CBC with ordered manual differential panel - 12/02/18 05:21 Blood leukocytes automated count (number/volume) 8.5 [...] measurement by glucometer (mass/volume) 212 mg/dL 70-110 Capillary blood glucose measurement by glucometer (mass/volume) - 10/31/18 12: 16 Capillary blood glucose measurement by glucometer (mass/volume) 185 mg/dL 70-110 Complete urinalysis with reflex to culture - 02/27/19 07:20 Urine color determination YELLOW NRG Urine clarity determination CLEAR NRG Urine pH measurement by test strip 6 5-9 Specific gravity of urine by test strip 1.020 1.016- 1.022 Urine protein assay by test strip, semi-quantitative 4+ NEGATIVE Urine glucose detection by automated test strip NEGATIVE NEGATIVE Erythrocytes detection in urine sediment by light microscopy 2+ NEGATIVE Urine ketones detection by automated test strip 1+ NEGATIVE Urine nitrite detection by test strip NEGATIVE NEGATIVE Urine total bilirubin detection by test strip 1+ NEGATIVE Urine urobilinogen measurement by automated test strip (mass/volume) 1 mg/dL NORMAL Urine leukocyte esterase detection by dipstick 2+ NEGATIVE Automated urine sediment erythrocyte count by microscopy (number/high power field) [HPF] NRG Automated urine sediment leukocyte count by microscopy (number/high power field ) [HPF] NRG Bacteria detection in urine sediment by light microscopy MODERATE NRG Squamous epithelial cells detection in urine sediment by light microscopy 5-10 NRG Crystals detection in urine sediment by light microscopy NONE NRG Casts detection in urine sediment by light microscopy PRESENT NRG Mucus detection in urine sediment by light microscopy MODERATE NRG Complete urinalysis with reflex to culture YES NRG Granular casts detection in urine sediment by light microscopy 5-10 NRG Automated blood complete blood count (hemogram) panel - 02/27/19 07:28 Blood leukocytes automated count (number/volume) 8.0 10*3/uL 4.3-11.0 Blood erythrocytes automated count (number/volume) 4.56 10*6/uL 4.35-5.85 Venous blood hemoglobin measurement (mass/volume) 12.8 g/dL 11.5-16.0 Blood hematocrit (volume fraction) 41 % 35-52 Automated erythrocyte mean corpuscular volume 89 [foz_us] 80-99 Automated erythrocyte mean corpuscular hemoglobin (mass per erythrocyte) 28 pg 25-34 Automated erythrocyte mean corpuscular hemoglobin concentration measurement ( mass/volume) 31 g/dL 32-36 Automated erythrocyte distribution width ratio 19.2 % 10.0-14.5 Automated blood platelet count (count/volume) 179 10*3/uL 130-400 Automated blood platelet mean volume measurement 11.3 [foz_us] 7.4-10.4 Comprehensive metabolic panel - 02/27/19 07:28 Serum or plasma sodium measurement (moles/volume) 139 mmol/L 135-145 Serum or plasma potassium measurement (moles/volume) 3.6 mmol/L 3.6-5.0 Serum or plasma chloride measurement (moles/volume) 100 mmol/L 98-107 Carbon dioxide 21 mmol/L 21-32 Serum or plasma anion gap determination (moles/volume) 18 mmol/L 5-14 Serum or plasma urea nitrogen measurement (mass/volume) 22 mg/dL 7-18 Serum or plasma creatinine measurement (mass/volume) 1.31 mg/dL 0.60-1.30 Serum or plasma urea nitrogen/creatinine mass ratio 17 NRG Serum or plasma creatinine measurement with calculation of estimated glomerular filtration rate 40 NRG Serum or plasma glucose measurement (mass/volume) 255 mg/dL 70-105 Serum or plasma calcium measurement (mass/volume) 10.5 mg/dL 8.5-10.1 Serum or plasma alkaline phosphatase measurement (enzymatic activity/volume) 154 U/L 40-136 Serum or plasma aspartate aminotransferase measurement (enzymatic activity/ volume) 63 U/L 5-34 Serum or plasma alanine aminotransferase measurement (enzymatic activity/volume ) 54 U/L 0-55 Serum or plasma protein measurement (mass/volume) 8.9 g/dL 6.4-8.2 Serum or plasma albumin measurement (mass/volume) 4.2 g/dL 3.2-4.5 CALCIUM CORRECTED 10.3 mg/dL 8.5-10.1 Lipid 1996 panel - 02/27/19 07:28 Serum or plasma triglyceride measurement (mass/volume) 177 mg/dL <150 Serum or plasma cholesterol measurement (mass/volume) 129 mg/dL < 200 Serum or plasma cholesterol in HDL measurement (mass/volume) 39 mg/ dL 40-60 Cholesterol in LDL [mass/volume] in serum or plasma by direct assay 69 mg/dL 1-129 Serum or plasma cholesterol in VLDL measurement (mass/volume) 35 mg/ dL 5-40 Encounters ACCT No. Visit Date/Time Discharge Status Pt. Type Provider Facility Loc./Unit Complaint [id number] 02/19/2019 00:16:00 02/19/2019 23:59:59 CLS Preadmit VIJAY ATKINS [facility] ONC [id number] 02/18/2019 08:42:00 02/18/2019 23:59:59 CLS Outpatient PRAVEEN VILLAVICENCIO [facility] CARD HTN,CAD, CHEST PAIN [id number] 02/12/2019 13:07:00 02/18/2019 00:01:00 DIS Outpatient VIJAY ATKINS [facility] ONC [id number] 12/29/2018 09:00:00 12/29/2018 23:59:59 CLS Preadmit PHYLLIS NIETO MD [facility] CR STATUS POST ACB [id number] 10/13/2018 12:30:00 12/28/2018 00:01:00 DIS Outpatient PHYLLIS NIETO MD [facility] CR STATUS POST ACB [id number] 10/23/2018 14:52:00 11/20/2018 13:33:00 DIS Outpatient VIJAY ATKINS [facility] ONC [id number] 10/31/2018 11:24:00 10/31/2018 14:15:00 DIS Outpatient OLIVIA SORENSON MD [facility] ENDO ANEMIA [id number] 10/27/2018 05:50:00 10/27/2018 13:34:00 DIS Outpatient OLIVIA SORENSON MD [facility] PREOP EGD [id number] 10/18/2018 20:30:00 10/19/2018 15:15:00 DIS Inpatient YEIMY BARKER, KIRSTEN Potts [facility] 4TH SEVERE ANEMIA HYPOTENSION ,HPOMAGNESSEMA,DEHYDRATIO [id number] 07/17/2018 13:58:00 07/18/2018 00:01:00 DIS Outpatient VIJAY ATKINS [facility] ONC [id number] 06/17/2018 14:41:00 07/17/2018 13:56:00 DIS Outpatient VIJAY ATKINS [facility] ONC [id number] 05/15/2018 17:05:00 05/15/2018 23:59:59 CLS Outpatient PHYLLIS NIETO MD [facility] LAB ANEMIA [id number] 05/08/2018 15:17:00 05/08/2018 23:59:59 CLS Outpatient PHYLLIS NIETO MD [facility] CARD CAD,CHEST PAIN,HTN, DIZZINESS [id number] 05/01/2018 17:04:00 05/01/2018 18:04:00 DIS Emergency MIKEY ARCHIBALD DO [facility] ER DIZZINESS;FALL AT HOME [id number] 04/09/2018 12:51:00 04/09/2018 23:59:59 CLS Outpatient ALAN ROD MD [facility] RAD I25.810 [id number] 03/05/2018 06:49:00 03/05/2018 13:00:00 DIS Outpatient PHYLLIS NIETO MD [facility] CATH ABN STRESS TEST,CAD,HTN [id number] 02/19/2018 07:43:00 02/19/2018 23:59:59 CLS Outpatient PHYLLIS NIETO MD [facility] CARD CAD [id number] 10/11/2017 06:09:00 10/11/2017 09:40:00 DIS Outpatient JOHN CRUZ DO [facility] SDC THICKENED ENDOMETRIUM [id number] 10/04/2017 09:10:00 10/04/2017 10:03:00 DIS Outpatient JOHN CRUZ DO [facility] PREOP THICKENED ENDOMETRIUM [id number] 09/18/2017 09:25:00 09/18/2017 12:10:00 DIS Outpatient OLIVIA SORENSON MD [facility] ENDO FAM HX COLON CA, HX POLYPS [id number] 09/12/2017 14:30:00 09/12/2017 14:54:00 DIS Outpatient OLIVIA SORENSON MD [facility] PREOP COLO [id number] 08/29/2017 14:52:00 08/29/2017 23:59:59 CLS Outpatient UDAY SALAZAR MD [facility] RAD ABDOMINAL PAIN LUQ R10.12 [id number] 08/26/2017 06:43:00 08/26/2017 23:59:59 CLS Outpatient UDAY SALAZAR MD [facility] RAD ABDOMINAL PAIN LEFT UPPER QUADRANT [id number] 08/08/2017 15:15:00 08/08/2017 23:59:59 CLS Preadmit MARTIN BARKER, UDAY Brown [facility] RAD LUQ ABD PAIN [id number] 02/27/2016 07:08:00 02/27/2016 23:59:59 CLS Outpatient PRAVEEN VILLAVICENCIO [facility] CARD [id number] 02/21/2016 14:51:00 02/21/2016 23:59:59 CLS Outpatient PRAVEEN VILLAVICENCIO [facility] CARD CAD,HTN,HLP , NIDDM [id number] 02/14/2016 13:02:00 02/14/2016 23:59:59 CLS Outpatient PHYLLIS NIETO MD [facility] RAD [id number] 02/27/2019 06:51:00 ACT Outpatient PHYLLIS NIETO MD [facility] CATH ABN STRESS [id number] 02/25/2019 07:00:00 ACT Outpatient PRAVEEN VILLAVICENCIO [facility] CARD CHEST PAIN,HTN,CAD [id number] 10/27/2018 13:19:00 Document Registration [id number] 06/24/2018 11:37:00 Document Registration [id number] 06/24/2018 11:32:00 Document Registration [id number] 02/21/2016 14:51:00 Document Registration [id number] 02/25/2013 10:45:00 Document Registration [id number] 08/13/2011 07:02:00 Document Registration [id number] 08/10/2011 08:28:00 Document Registration [id number] 07/13/2010 09:21:00 Document Registration [id number] 07/11/2009 10:05:00 Document Registration [id number] 10/27/2008 14:58:00 Document Registration [id number] 07/23/2008 19:29:00 Document Registration [id number] 06/16/2007 16:49:00 Document Registration [id number] 05/01/2006 09:14:00 Document Registration
== END 2019-02-27 14:00 | disposition home or self-care (01) ==
LOC: CATH 06:51 → SDC 09:38 → CATH 14:00
PROVIDERS: ATTEND Internal Medicine Cardiovascular Disease
DX: I25.10 Atherosclerotic heart disease of native coronary artery without angina pectoris (principal); I25.810 Atherosclerosis of coronary artery bypass graft(s) without angina pectoris; I10 Essential (primary) hypertension; E78.5 Hyperlipidemia, unspecified; E11.51 Type 2 diabetes mellitus with diabetic peripheral angiopathy without gangrene; I70.1 Atherosclerosis of renal artery; I65.23 Occlusion and stenosis of bilateral carotid arteries; I34.0 Nonrheumatic mitral (valve) insufficiency; R82.90 Unspecified abnormal findings in urine; D50.9 Iron deficiency anemia, unspecified; Z87.891 Personal history of nicotine dependence; Z95.1 Presence of aortocoronary bypass graft; Z95.820 Peripheral vascular angioplasty status with implants and grafts; Z79.4 Long term (current) use of insulin; Z79.899 Other long term (current) drug therapy
CPT/HCPCS: 36221; 36415; 71045; 80053; 80061; 81000; 85027; 85610; 85730; 87081; 87088; 93459

== ENCOUNTER → 2019-04-17 | Outpatient (CLI) | payer MEDICARE, OTHER ==
[~2019-04-17] MED LIST changes: +FERR-84 PO; +FOLI1TAB24 PO; +LIRA0.6P3 SQ; +MULT-351 PO
--- NOTE | 2019-04-17 15:20 | Diagnostic Imaging Report ---
PROCEDURE: CT abdomen with and without contrast. TECHNIQUE: Multiple contiguous axial CT images of the abdomen were obtained prior to and after intravenous administration of iodinated contrast. Auto Exposure Controls were utilized during the CT exam to meet ALARA standards for radiation dose reduction. INDICATION: Left-sided abdominal pain. COMPARISON: Comparison is made with prior CT from 10/18/2018. FINDINGS: Liver and spleen remain enlarged. There is a low density in the anterior aspect of the spleen measuring 17 mm. This was present on prior study. Gallbladder is unremarkable. No biliary ductal dilatation is seen. The pancreas is unremarkable. No adrenal mass is detected. Kidneys contain small cortical low densities, suggestive of cysts. Aorta and iliac vessels are heavily calcified but not aneurysmal. No central retroperitoneal or mesenteric lymphadenopathy is seen. The visualized bowel loops are normal caliber. There is no ascites. No hemoretroperitoneum is seen. IMPRESSION: Hepatosplenomegaly. No other significant abnormality is detected. Dictated by: Dictated on workstation # [id number]
== END ==
LOC: RAD 14:01
PROVIDERS: ATTEND Internal Medicine Hematology & Oncology
DX: K29.70 Gastritis, unspecified, without bleeding (principal); K92.2 Gastrointestinal hemorrhage, unspecified; R16.2 Hepatomegaly with splenomegaly, not elsewhere classified
CPT/HCPCS: 74170

== ENCOUNTER 2019-04-28 05:57 | Outpatient (CLI) | payer MEDICARE, OTHER ==
[~2019-04-28] VITALS: Ht 170.2 cm; Wt 78.0 kg
== END 2019-04-28 11:15 | disposition home or self-care (01) ==
LOC: PREOP 05:57
PROVIDERS: ATTEND Surgery
DX: Z01.818 Encounter for other preprocedural examination (principal)

== ENCOUNTER 2019-04-29 11:13 | Day surgery (SDC) | payer MEDICARE, OTHER ==
[~2019-04-29] VITALS: Ht 170.2 cm; Wt 78.0 kg
[2019-04-29] MEDS ORDERED: NS IV 500 ML 500 ML ONE (11:15)
--- OUTSIDE RECORDS SUMMARY | 2019-04-29 11:20 | XMS REPORT | Continuity of Care Document ---
Author Organization Unknown Address Unknown Allergies Active Description Code Type Severity Reaction Onset Reported/Identified Relationship to Patient Clinical Status Yes No Allergy Information Available [id number] Drug Allergy Unknown N/A 02/14/2016 Yes latex [id number] Drug Allergy Unknown HIVES 10/04/2017 Yes nickel [id number] Drug Allergy Unknown HIVES 10/04/2017 Medications There [...] ATKINS Ot I25.10 ATHSCL HEART DISEASE OF [place] CORONARY 10/17/1332 VIJAY ATKINS Ot I73.9 PERIPHERAL VASCULAR DISEASE, UNSPECIFIED 10/17/1332 VIJAY ATKINS Ot R42 DIZZINESS AND GIDDINESS 10/17/1332 VIJAY ATKINS Ot 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 10/17/1332 VIJAY ATKINS Ot Z79.899 OTHER ASSISTED (CURRENT) DRUG THERAPY 10/17/1332 VIJAY ATKINS Ot [...] Derrick Ot I25.10 ATHSCL HEART DISEASE OF [place] CORONARY 10/17/1355 VIJAY ATKINS Derrick Ot I73.9 PERIPHERAL VASCULAR DISEASE, UNSPECIFIED 10/17/1355 VIJAY ATKINS Derrick Ot R42 DIZZINESS AND GIDDINESS 10/17/1355 VIJAY ATKINS Derrick Ot 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 10/17/1355 VIJAY ATKINS Derrick Ot 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 10/17/1355 VIJAY ATKINS Derrick [...] SANTANA-VANDANA PA, PRAVEEN K Ot I25.10 02/23/2016 [facility] K Ot E11.9 02/23/2016 [facility], [facility] K Ot E78.2 02/23/2016 [facility], PRAVEEN K Ot I10 02/23/2016 [facility], PRAVEEN K Ot I25.10 02/27/2016 [facility], PRAVEEN K Ot E11.9 02/27/2016 [facility], PRAVEEN K Ot E78.2 02/27/2016 [facility], PRAVEEN K Ot I10 02/27/2016 SANTANA-VANDANA PA, PRAVEEN K Ot I25.10 02/28/2016 SANTANA-VANDANA PA, PRAVEEN K Ot E11.9 02/28/2016 [facility], PRAVEEN K Ot E78.2 02/28/2016 [facility], PRAVEEN K Ot I10 02/28/2016 SANTANA-VANDANA PA, PRAVEEN K Ot I25.10 02/29/2016 GERSON BARKER, PHYLLIS Morales Ot I65.23 03/04/2016 SANTANABLANKA PA, PRAVEEN K Ot E11.9 TYPE 2 DIABETES MELLITUS WITHOUT COMPLIC 03/04/2016 BERNABE PA, PRAVEEN K Ot E78.2 MIXED HYPERLIPIDEMIA 03/04/2016 SANTANABLANKA PA, PRAVEEN K Ot I10 ESSENTIAL (PRIMARY) HYPERTENSION 03/04/2016 BERNABE PA, PRAVEEN K Ot I25.10 ATHSCL HEART DISEASE OF [place] CORONARY 03/07/2016 BERNABE PA, PRAVEEN K Ot E11.9 TYPE 2 DIABETES MELLITUS WITHOUT COMPLIC 03/07/2016 BERNABE PA, PRAVEEN K Ot E78.2 MIXED HYPERLIPIDEMIA 03/07/2016 BERNABE PA, PRAVEEN K Ot I10 ESSENTIAL (PRIMARY) HYPERTENSION 03/07/2016 PRAVEEN VILLAVICENCIO Ot I25.10 ATHSCL HEART DISEASE OF [place] CORONARY 03/15/2016 PRAVEEN VILLAVICENCIO Ot E11.9 TYPE 2 DIABETES MELLITUS WITHOUT COMPLIC 03/15/2016 PRAVEEN VILLAVICENCIO Ot E78.2 MIXED HYPERLIPIDEMIA 03/15/2016 PRAVEEN VILLAVICENCIO Ot I10 ESSENTIAL (PRIMARY) HYPERTENSION 03/15/2016 PRAVEEN VILLAVICENCIO Ot I25.10 ATHSCL HEART DISEASE OF [place] CORONARY 08/06/2017 Ot 397.0 TRICUSPID VALVE DISEASE [...] VILLAVICENCIO Ot I25.10 ATHSCL HEART DISEASE OF [place] CORONARY 09/04/2017 UDAY SALAZAR MD R Ot [...] MD, Ot I25.10 ATHSCL HEART DISEASE OF [place] CORONARY 09/18/2017 OLIVIA SORENSON MD, Ot K57.30 DVRTCLOS OF LG INT W/O PERFORATION OR AB 09/18/2017 OLIVIA SORENSON MD, Ot K64.1 SECOND DEGREE HEMORRHOIDS 09/18/2017 OLIVIA SORENSON MD, Ot Z12.11 ENCOUNTER FOR SCREENING FOR MALIGNANT NE 09/18/2017 OLIVIA SORENSON MD, Ot Z79.84 DIESEL TRAILER MECHANIC (CURRENT) USE OF ORAL HYPOGLYC 09/18/2017 OLIVIA SORENSON MD, Ot 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 09/18/2017 OLIVIA SORENSON MD, [...] MD, Ot I25.10 ATHSCL HEART DISEASE OF [place] CORONARY 09/20/2017 OLIVIA SORENSON MD, Ot K57.30 DVRTCLOS OF LG INT W/O PERFORATION OR AB 09/20/2017 OLIVIA SORENSON MD, Ot K64.1 SECOND DEGREE HEMORRHOIDS 09/20/2017 OLIVIA SORENSON MD, Ot Z12.11 ENCOUNTER FOR SCREENING FOR MALIGNANT NE 09/20/2017 OLIVIA SORENSON MD, Ot Z79.84 DIESEL TRAILER MECHANIC (CURRENT) USE OF ORAL HYPOGLYC 09/20/2017 OLIVIA SORENSON MD, Ot Z79.899 OTHER ASSISTED (CURRENT) DRUG THERAPY 09/20/2017 OLIVIA SORENSON MD, [...] DO, Ot I25.10 ATHSCL HEART DISEASE OF [place] CORONARY 10/11/2017 JOHN CRUZ DO Ot N81.10 CYSTOCELE, UNSPECIFIED 10/11/2017 NANCY JOHN RODRIGUEZ Ot N81.6 RECTOCELE 10/11/2017 NANCY JOHN RODRIGUEZ Ot R93.8 ABNORMAL FINDINGS ON DIAGNOSTIC IMAGING 10/11/2017 NANCY RODRIGUEZJOHN Ot Z78.0 ASYMPTOMATIC MENOPAUSAL STATE 10/11/2017 NANCY JOHN RODRIGUEZ Ot Z79.02 DIESEL TRAILER MECHANIC (CURRENT) USE OF ANTITHROMBOTI 10/11/2017 ENZOJOHN GUEVARA DO Ot 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 10/11/2017 NANCY JOHN RODRIGUEZ Ot Z79.899 OTHER ASSISTED (CURRENT) DRUG THERAPY 10/11/2017 JOHN CRUZ DO [...] RODRIGUEZ Ot I25.10 ATHSCL HEART DISEASE OF [place] CORONARY 10/30/2017 ENZOISMAEL JOHN RODRIGUEZ Ot N81.10 CYSTOCELE, UNSPECIFIED 10/30/2017 ENZOJOHN GUEVARA DO Ot N81.6 RECTOCELE 10/30/2017 ENZOISMAEL JOHN RODRIGUEZ Ot R93.8 ABNORMAL FINDINGS ON DIAGNOSTIC IMAGING 10/30/2017 NANCY JOHN RODRIGUEZ Ot Z78.0 ASYMPTOMATIC MENOPAUSAL STATE 10/30/2017 JOHN CRUZ DO Ot Z79.02 DIESEL TRAILER MECHANIC (CURRENT) USE OF ANTITHROMBOTI 10/30/2017 JOHN CRUZ DO Ot 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 10/30/2017 JOHN CRUZ DO Ot Z79.899 OTHER ASSISTED (CURRENT) DRUG THERAPY 10/30/2017 FENECH DO, JOHN [...] MD Ot I25.10 ATHSCL HEART DISEASE OF [place] CORONARY 02/21/2018 PHYLLIS NIETO MD Ot Z72.0 TOBACCO USE 02/25/2018 PHYLLIS NIETO MD Ot E11.9 TYPE 2 DIABETES MELLITUS WITHOUT COMPLIC 02/25/2018 PHYLLIS NIETO MD Ot E78.5 HYPERLIPIDEMIA, UNSPECIFIED 02/25/2018 PHYLLIS NIETO MD Ot I10 ESSENTIAL (PRIMARY) HYPERTENSION 02/25/2018 PHYLLIS NIETO MD Ot I25.10 ATHSCL HEART DISEASE OF [place] CORONARY 02/25/2018 PHYLLIS NIETO MD Ot Z72.0 TOBACCO USE 03/04/2018 PHYLLIS NIETO MD Ot E11.9 TYPE 2 DIABETES MELLITUS WITHOUT COMPLIC 03/04/2018 PHYLLIS NIETO MD Ot E78.5 HYPERLIPIDEMIA, UNSPECIFIED 03/04/2018 PHYLLIS NIETO MD Ot I10 ESSENTIAL (PRIMARY) HYPERTENSION 03/04/2018 PHYLLIS NIETO MD Ot I25.10 ATHSCL HEART DISEASE OF [place] CORONARY 03/04/2018 PHYLLIS NIETO MD Ot Z72.0 TOBACCO USE 03/05/2018 PHYLLIS NIETO MD Ot E11.9 TYPE 2 DIABETES MELLITUS WITHOUT COMPLIC 03/05/2018 PHYLLIS NIETO MD Ot E78.5 HYPERLIPIDEMIA, UNSPECIFIED 03/05/2018 PHYLLIS NIETO MD Ot F17.210 NICOTINE DEPENDENCE, CIGARETTES, UNCOMPL 03/05/2018 PHYLLIS NIETO MD Ot I10 ESSENTIAL (PRIMARY) HYPERTENSION 03/05/2018 PHYLLIS NIETO MD Ot I25.10 ATHSCL HEART DISEASE OF [place] CORONARY 03/05/2018 PHYLLIS NIETO MD Ot I65.23 [...] MD Ot I25.10 ATHSCL HEART DISEASE OF [place] CORONARY 03/06/2018 PHYLLIS NIETO MD Ot I65.23 [...] DO K Ot Y92.[address] [facility] NON-INSTITUT (PRIVATE 05/13/2018 PHYLLIS NIETO MD Ot E78.5 HYPERLIPIDEMIA, UNSPECIFIED 05/13/2018 PHYLLIS NIETO MD Ot 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AL AND T 05/13/2018 PHYLLIS NIETO MD Ot I10 ESSENTIAL (PRIMARY) HYPERTENSION 05/13/2018 PHYLLIS NIETO MD Ot I25.10 ATHSCL HEART DISEASE OF [place] CORONARY 05/13/2018 PHYLLIS NIETO MD Ot R07.9 CHEST PAIN, UNSPECIFIED 05/13/2018 PHYLLIS NIETO MD Ot Z72.0 TOBACCO USE 05/13/2018 PHYLLIS NIETO MD Ot E78.5 HYPERLIPIDEMIA, UNSPECIFIED 05/13/2018 PHYLLIS NIETO MD Ot 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AL AND T 05/13/2018 PHYLLIS NIETO MD Ot I10 ESSENTIAL (PRIMARY) HYPERTENSION 05/13/2018 HPYLLIS NIETO MD Ot I25.10 ATHSCL HEART DISEASE OF [place] CORONARY 05/13/2018 PHYLLIS NIETO MD Ot R07.9 [...] MD Ot I25.10 ATHSCL HEART DISEASE OF [place] CORONARY 05/22/2018 PHYLLIS NIETO MD Ot R07.9 [...] N Ot I25.10 ATHSCL HEART DISEASE OF [place] CORONARY 06/02/2018 WILBERT BOBSHREYA N Ot I73.9 PERIPHERAL VASCULAR DISEASE, UNSPECIFIED 06/02/2018 WILBERTVIJAY N Ot R42 DIZZINESS AND GIDDINESS 06/02/2018 VIJAY ATKINS N Ot Z79.4 ASSISTED (CURRENT) USE OF INSULIN 06/02/2018 VIJAY ATKINS N Ot 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 06/02/2018 VIJAY ATKINS N [...] N Ot I25.10 ATHSCL HEART DISEASE OF [place] CORONARY 06/09/2018 WILBERTVIJAY N Ot I73.9 PERIPHERAL VASCULAR DISEASE, UNSPECIFIED 06/09/2018 VIJAY ATKINS N Ot R42 DIZZINESS AND GIDDINESS 06/09/2018 WILBERTVIJAY N Ot Z79.4 ASSISTED (CURRENT) USE OF INSULIN 06/09/2018 VIJAY ATKINS N Ot 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 06/09/2018 VIJAY ATKINS N Ot Z95.1 PRESENCE OF AORTOCORONARY BYPASS GRAFT 06/09/2018 VIJAY ATKINS N Ot Z95.820 PERIPHERAL VASCULAR ANGIOPLASTY STATUS W 07/04/2018 Ot E11.9 TYPE 2 DIABETES MELLITUS WITHOUT COMPLIC 07/04/2018 Ot E78.5 HYPERLIPIDEMIA, UNSPECIFIED 07/04/2018 Ot I10 ESSENTIAL (PRIMARY) HYPERTENSION 07/04/2018 Ot I25.10 ATHSCL HEART DISEASE OF [place] CORONARY 07/17/2018 WILBERTVIJAY PLASCENCIA N Ot D64.9 ANEMIA, UNSPECIFIED 07/17/2018 WILBERT, BOBSHREYA N Ot 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 AUTONOMIC (PO 07/17/2018 WILBERTVIJAY N Ot E78.5 HYPERLIPIDEMIA, UNSPECIFIED 07/17/2018 WILBERT, BOBAN N Ot F17.210 NICOTINE DEPENDENCE, CIGARETTES, UNCOMPL 07/17/2018 WILBERT, BOBAN N Ot I10 ESSENTIAL (PRIMARY) HYPERTENSION 07/17/2018 WILBERTROHINISHREYA N Ot I25.10 ATHSCL HEART DISEASE OF [place] CORONARY 07/17/2018 WILBERTVIJAY N Ot I73.9 PERIPHERAL VASCULAR DISEASE, UNSPECIFIED 07/17/2018 WILBERTVIJAY N Ot R42 DIZZINESS AND GIDDINESS 07/17/2018 WILBERT VIJAY N Ot 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 07/17/2018 WILBERT VIJAY N Ot 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 07/17/2018 WILBERT VIJAY N [...] N Ot I10 ESSENTIAL (PRIMARY) HYPERTENSION 07/18/2018 WLIBERT, VIJAY N Ot I25.10 ATHSCL HEART DISEASE OF [place] CORONARY 07/18/2018 WILBERTVIJAY N Ot I73.9 PERIPHERAL VASCULAR DISEASE, UNSPECIFIED 07/18/2018 VIJAY ATKINS N Ot R42 DIZZINESS AND GIDDINESS 07/18/2018 VIJAY ATKINS N Ot 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 07/18/2018 VIJAY ATKINS N Ot Z79.899 OTHER ASSISTED (CURRENT) DRUG THERAPY 07/18/2018 VIJAY ATKINS N Ot Z95.1 PRESENCE OF AORTOCORONARY BYPASS GRAFT 07/18/2018 VIJAY ATKINS N Ot Z95.820 PERIPHERAL VASCULAR ANGIOPLASTY STATUS W 07/18/2018 VIJAY ATKINS N Ot D64.9 ANEMIA, UNSPECIFIED 07/18/2018 WILBERTVIJAY PLASCENCIA N Ot 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 AUTONOMIC (PO 07/18/2018 WILBERT VIJAY N Ot E78.5 HYPERLIPIDEMIA, UNSPECIFIED 07/18/2018 VIJAY ATKINS N Ot F17.210 NICOTINE DEPENDENCE, CIGARETTES, UNCOMPL 07/18/2018 WILBERT BOBSHREYA N Ot I10 ESSENTIAL (PRIMARY) HYPERTENSION 07/18/2018 WILBERT VIJAY N Ot I25.10 ATHSCL HEART DISEASE OF [place] CORONARY 07/18/2018 VIJAY ATKINS N Ot I73.9 PERIPHERAL VASCULAR DISEASE, UNSPECIFIED 07/18/2018 VIJAY ATKINS N Ot R42 DIZZINESS AND GIDDINESS 07/18/2018 WILBERT VIJAY N Ot 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 07/18/2018 VIJAY ATKINS N Ot Z79.899 OTHER ASSISTED (CURRENT) DRUG THERAPY 07/18/2018 VIJAY ATKINS N Ot Z95.1 PRESENCE OF AORTOCORONARY BYPASS GRAFT 07/18/2018 WILBERT VIJAY N Ot Z95.820 PERIPHERAL VASCULAR ANGIOPLASTY STATUS W 08/14/2018 Ot D50.0 IRON 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 08/14/2018 Ot E11.9 TYPE 2 DIABETES MELLITUS WITHOUT COMPLIC 08/14/2018 Ot E78.5 HYPERLIPIDEMIA, UNSPECIFIED 08/14/2018 Ot I10 ESSENTIAL (PRIMARY) HYPERTENSION 08/14/2018 Ot I25.10 ATHSCL HEART DISEASE OF [place] CORONARY 08/19/2018 WILBERT VIJAY N Ot D64.9 ANEMIA, UNSPECIFIED 08/19/2018 WILBERT ROHINISHREYA N Ot 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 AUTONOMIC (PO 08/19/2018 VIJAY ATKINS Ot E78.5 HYPERLIPIDEMIA, UNSPECIFIED 08/19/2018 VIJAY ATKINS Ot F17.210 NICOTINE DEPENDENCE, CIGARETTES, UNCOMPL 08/19/2018 VIJAY ATKINS Ot I10 ESSENTIAL (PRIMARY) HYPERTENSION 08/19/2018 VIJAY ATKINS Ot I25.10 ATHSCL HEART DISEASE OF [place] CORONARY 08/19/2018 VIJAY ATKINS Ot I73.9 PERIPHERAL VASCULAR DISEASE, UNSPECIFIED 08/19/2018 VIJAY ATKINS Ot R42 DIZZINESS AND GIDDINESS 08/19/2018 VIJAY ATKINS Ot Z79.4 ASSISTED (CURRENT) USE OF INSULIN 08/19/2018 VIJAY ATKINS Ot Z79.899 OTHER ASSISTED (CURRENT) DRUG THERAPY 08/19/2018 VIJAY ATKINS Ot Z95.1 PRESENCE OF AORTOCORONARY BYPASS GRAFT 08/19/2018 VIJAY ATKINS Ot Z95.820 PERIPHERAL VASCULAR ANGIOPLASTY STATUS W 08/20/2018 Ot D50.0 IRON 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 08/20/2018 Ot D50.0 IRON 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 08/20/2018 Ot E11.9 TYPE 2 DIABETES MELLITUS WITHOUT COMPLIC 08/20/2018 Ot E78.5 HYPERLIPIDEMIA, UNSPECIFIED 08/20/2018 Ot I10 ESSENTIAL (PRIMARY) HYPERTENSION 08/20/2018 Ot I25.10 ATHSCL HEART DISEASE OF [place] CORONARY 08/28/2018 Ot D50.0 IRON DEFICIENCY ANEMIA [...] MD Ot I25.10 ATHSCL HEART DISEASE OF [place] CORONARY 09/29/2018 PHYLLIS NIETO MD Ot Z72.0 [...] MD Ot I25.10 ATHSCL HEART DISEASE OF [place] CORONARY 09/29/2018 PHYLLIS NIETO MD Ot R07.9 CHEST PAIN, UNSPECIFIED 09/29/2018 PHYLLIS NIETO MD Ot Z72.0 TOBACCO USE 09/29/2018 PHYLLIS NIETO MD Ot D64.9 ANEMIA, UNSPECIFIED 09/29/2018 Ot D50.0 IRON 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 09/29/2018 Ot E11.9 TYPE 2 DIABETES MELLITUS WITHOUT COMPLIC 09/29/2018 Ot E78.5 HYPERLIPIDEMIA, UNSPECIFIED 09/29/2018 Ot I10 ESSENTIAL (PRIMARY) HYPERTENSION 09/29/2018 Ot I25.10 ATHSCL HEART DISEASE OF [place] CORONARY 09/29/2018 VIJAY ATKINS Ot D64.9 ANEMIA, UNSPECIFIED 09/29/2018 VIJAY ATKINS Ot 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 AUTONOMIC (PO 09/29/2018 VIJAY ATKINS Ot E78.5 HYPERLIPIDEMIA, UNSPECIFIED 09/29/2018 VIJAY ATKINS Ot F17.210 NICOTINE DEPENDENCE, CIGARETTES, UNCOMPL 09/29/2018 VIJAY ATKINS Ot I10 ESSENTIAL (PRIMARY) HYPERTENSION 09/29/2018 VIJAY ATKINS Ot I25.10 ATHSCL HEART DISEASE OF [place] CORONARY 09/29/2018 VIJAY ATKINS Ot I73.9 PERIPHERAL VASCULAR DISEASE, UNSPECIFIED 09/29/2018 VIJAY ATKINS Ot R42 DIZZINESS AND GIDDINESS 09/29/2018 VIJAY ATKINS Ot Z79.4 ASSISTED (CURRENT) USE OF INSULIN 09/29/2018 VIJAY ATKINS Ot 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 09/29/2018 WILBERT, BOBAN N [...] MD Ot I25.10 ATHSCL HEART DISEASE OF [place] CORONARY 10/19/2018 KIRSTEN GAFFNEY MD Ot I25.2 [...] HOUSE 10/19/2018 KIRSTEN GAFFNEY MD Ot Z79.4 ASSISTED (CURRENT) USE OF INSULIN 10/19/2018 KIRSTEN GAFFNEY MD Ot Z79.82 DIESEL TRAILER MECHANIC (CURRENT) USE OF ASPIRIN 10/19/2018 KIRSTEN GAFFNEY [...] Ot V76.12 10/27/2018 Ot V76.12 OTH SCREEN MAMMO- MALIGN NEOPLASM OF [place] 10/27/2018 UDAY SALAZAR MD [...] MD, Ot I25.10 ATHSCL HEART DISEASE OF [place] CORONARY 10/31/2018 OLIVIA SORENSON MD, Ot K21.0 GASTRO-ESOPHAGEAL REFLUX DISEASE WITH ES 10/31/2018 OLIVIA SORENSON MD, Ot K29.70 GASTRITIS, UNSPECIFIED, WITHOUT BLEEDING 10/31/2018 OLIVIA SORENSON MD, Ot K44.9 DIAPHRAGMATIC HERNIA WITHOUT OBSTRUCTION 10/31/2018 OLIVIA SORENSON MD, Ot Z79.4 ASSISTED (CURRENT) USE OF INSULIN 10/31/2018 OLIVIA SORENSON MD, Ot Z79.82 ASSISTED (CURRENT) USE OF ASPIRIN 10/31/2018 OLIVIA SORENSON MD, Ot 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 10/31/2018 OLIVIA SORENSON MD, [...] Ot I10 ESSENTIAL (PRIMARY) HYPERTENSION 10/31/2018 VIJAY AKTINS Ot I25.10 ATHSCL HEART DISEASE OF [place] CORONARY 10/31/2018 VIJAY ATKINS Ot I73.9 PERIPHERAL VASCULAR DISEASE, UNSPECIFIED 10/31/2018 VIJAY ATKINS Ot R42 DIZZINESS AND GIDDINESS 10/31/2018 VIJAY ATKINS Ot Z79.4 ASSISTED (CURRENT) USE OF INSULIN 10/31/2018 VIJAY ATKINS Ot 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 10/31/2018 VIJAY ATKINS Ot [...] MD, Ot I25.10 ATHSCL HEART DISEASE OF [place] CORONARY 11/04/2018 OLIVIA SORENSON MD, Ot K21.0 GASTRO-ESOPHAGEAL REFLUX DISEASE WITH ES 11/04/2018 OLIVIA SORENSON MD, Ot K29.70 GASTRITIS, UNSPECIFIED, WITHOUT BLEEDING 11/04/2018 OLIVIA SORENSON MD, Ot K44.9 DIAPHRAGMATIC HERNIA WITHOUT OBSTRUCTION 11/04/2018 OLIVIA SORENSON MD, Ot 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 11/04/2018 OLIVIA SORENSON MD, Ot Z79.82 ASSISTED (CURRENT) USE OF ASPIRIN 11/04/2018 OLIVIA SORENSON MD, Ot 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 11/04/2018 OLIVIA SORENSON MD, [...] MD, Ot I25.10 ATHSCL HEART DISEASE OF [place] CORONARY 11/04/2018 OLIVIA SORENSON MD, Ot K21.0 GASTRO-ESOPHAGEAL REFLUX DISEASE WITH ES 11/04/2018 OLIVIA SORENSON MD, Ot K29.70 GASTRITIS, UNSPECIFIED, WITHOUT BLEEDING 11/04/2018 OLIVIA SORENSON MD, Ot K44.9 DIAPHRAGMATIC HERNIA WITHOUT OBSTRUCTION 11/04/2018 OLIVIA SORENSON MD, Ot 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 11/04/2018 KIDO MD, TAKAAKI Ot Z79.82 DIESEL TRAILER MECHANIC (CURRENT) USE OF ASPIRIN 11/04/2018 OLIVIA SORENSON MD Ot Z79.899 OTHER ASSISTED (CURRENT) DRUG THERAPY 11/04/2018 OLIVIA SORENSON MD, [...] MD, Ot I25.10 ATHSCL HEART DISEASE OF [place] CORONARY 11/05/2018 OLIVIA SORENSON MD Ot K21.0 GASTRO-ESOPHAGEAL REFLUX DISEASE WITH ES 11/05/2018 OLIVIA SORENSON MD Ot K29.70 GASTRITIS, UNSPECIFIED, WITHOUT BLEEDING 11/05/2018 OLIVIA SORENSON MD Ot K44.9 DIAPHRAGMATIC HERNIA WITHOUT OBSTRUCTION 11/05/2018 OLIVIA SORENSON MD, Ot 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 11/05/2018 OLIVIA SORENSON MD, Ot Z79.82 ASSISTED (CURRENT) USE OF ASPIRIN 11/05/2018 OLIVIA SORENSON MD, Ot 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 11/05/2018 OLIVIA SORENSON MD, [...] VILLAVICENCIO Ot I25.10 ATHSCL HEART DISEASE OF [place] CORONARY 11/12/2018 MARTIN BARKER, UDAY R Ot [...] ATKINS Ot I25.10 ATHSCL HEART DISEASE OF [place] CORONARY 11/12/2018 VIJAY ATKINS Ot I73.9 PERIPHERAL VASCULAR DISEASE, UNSPECIFIED 11/12/2018 VIJAY ATKINS Ot R42 DIZZINESS AND GIDDINESS 11/12/2018 VIJAY ATKINS Ot Z79.4 ASSISTED (CURRENT) USE OF INSULIN 11/12/2018 VIJAY ATKINS Ot 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 11/12/2018 VIJAY ATKINS Ot [...] N Ot I25.10 ATHSCL HEART DISEASE OF [place] CORONARY 11/12/2018 WILBERT BOBSRHEYA N Ot I73.9 PERIPHERAL VASCULAR DISEASE, UNSPECIFIED 11/12/2018 WILBERT BOBAN N Ot R42 DIZZINESS AND GIDDINESS 11/12/2018 WILBERTVIJAY N Ot Z79.4 ASSISTED (CURRENT) USE OF INSULIN 11/12/2018 WILBERT, BOBAN N Ot Z79.899 OTHER ASSISTED (CURRENT) DRUG THERAPY 11/12/2018 WILBERT, BOBAN N [...] N Ot I25.10 ATHSCL HEART DISEASE OF [place] CORONARY 11/20/2018 WILBERTVIJAY N Ot I73.9 PERIPHERAL VASCULAR DISEASE, UNSPECIFIED 11/20/2018 WILBERTVIJAY N Ot R42 DIZZINESS AND GIDDINESS 11/20/2018 WILBERTVIJAY N Ot 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 11/20/2018 WILBERTVIJAY N Ot Z79.899 OTHER ASSISTED (CURRENT) DRUG THERAPY 11/20/2018 WILBERTVIJAY N Ot [...] N Ot I25.10 ATHSCL HEART DISEASE OF [place] CORONARY 02/06/2019 VIJAY ATKINS Ot I73.9 PERIPHERAL VASCULAR DISEASE, UNSPECIFIED 02/06/2019 VIJAY ATKINS Ot R42 DIZZINESS AND GIDDINESS 02/06/2019 VIJAY ATKINS Ot 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 02/06/2019 VIJAY ATKINS Ot 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 02/06/2019 VIJAY ATKINS Ot [...] N Ot I25.10 ATHSCL HEART DISEASE OF [place] CORONARY 02/18/2019 VIJAY ATKINS Ot I73.9 PERIPHERAL VASCULAR DISEASE, UNSPECIFIED 02/18/2019 VIJAY ATKINS Ot R42 DIZZINESS AND GIDDINESS 02/18/2019 VIJAY ATKINS Ot Z79.4 ASSISTED (CURRENT) USE OF INSULIN 02/18/2019 VIJAY ATKINS Ot 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 02/18/2019 VIJAY ATKINS Ot Z95.1 PRESENCE OF AORTOCORONARY BYPASS GRAFT 02/18/2019 VIJAY ATKINS Ot Z95.820 PERIPHERAL VASCULAR ANGIOPLASTY STATUS W 02/19/2019 PRAVEEN VILLAVICENCIO Ot E78.5 HYPERLIPIDEMIA, UNSPECIFIED 02/19/2019 PRAVEEN VILLAVICENCIO Ot I07.1 RHEUMATIC TRICUSPID INSUFFICIENCY 02/19/2019 PRAVEEN VILLAVICENCIO Ot I10 ESSENTIAL (PRIMARY) HYPERTENSION 02/19/2019 PRAVEEN VILLAVICENCIO Ot I25.10 ATHSCL HEART DISEASE OF [place] CORONARY 02/19/2019 PRAVEEN VILLAVICENCIO Ot R07.9 CHEST PAIN, UNSPECIFIED 02/19/2019 VIJAY ATKINS Ot D64.9 ANEMIA, UNSPECIFIED 02/19/2019 VIJAY ATKINS Ot 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 AUTONOMIC (PO 02/19/2019 VIJAY ATKINS Ot E78.5 HYPERLIPIDEMIA, UNSPECIFIED 02/19/2019 VIJAY ATKINS Ot F17.210 NICOTINE DEPENDENCE, CIGARETTES, UNCOMPL 02/19/2019 VIJAY ATKINS Ot I10 ESSENTIAL (PRIMARY) HYPERTENSION 02/19/2019 VIJAY ATKINS Ot I25.10 ATHSCL HEART DISEASE OF [place] CORONARY 02/19/2019 VIJAY ATKINS Ot I73.9 PERIPHERAL VASCULAR DISEASE, UNSPECIFIED 02/19/2019 VIJAY ATKINS Ot R42 DIZZINESS AND GIDDINESS 02/19/2019 VIJAY ATKINS Ot Z79.4 ASSISTED (CURRENT) USE OF INSULIN 02/19/2019 VIJAY ATKINS Ot 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 02/19/2019 VIJAY ATKINS Ot Z95.1 PRESENCE OF AORTOCORONARY BYPASS GRAFT 02/19/2019 VIJAY ATKINS Derrick Ot Z95.820 PERIPHERAL VASCULAR ANGIOPLASTY STATUS W 02/24/2019 PRAVEEN VILLAVICENCIO Ot E78.5 HYPERLIPIDEMIA, UNSPECIFIED 02/24/2019 PRAVEEN VILLAVICENCIO Ot I07.1 RHEUMATIC TRICUSPID INSUFFICIENCY 02/24/2019 PRAVEEN VILLAVICENCIO Ot I10 ESSENTIAL (PRIMARY) HYPERTENSION 02/24/2019 PRAVEEN VILLAVICENCIO Ot I25.10 ATHSCL HEART DISEASE OF [place] CORONARY 02/24/2019 PRAVEEN VILLAVICENCIO Ot R07.9 CHEST PAIN, UNSPECIFIED 02/26/2019 PRAVEEN VILLAVICENCIO Ot E78.5 HYPERLIPIDEMIA, UNSPECIFIED 02/26/2019 PRAVEEN VILLAVICENCIO Ot I10 ESSENTIAL (PRIMARY) HYPERTENSION 02/26/2019 PRAVEEN VILLAVICENCIO Ot I25.10 ATHSCL HEART DISEASE OF [place] CORONARY 02/26/2019 PRAVEEN VILLAVICENCIO Ot R07.9 CHEST PAIN, UNSPECIFIED 02/27/2019 PHYLLIS NIETO MD Ot D50.9 IRON DEFICIENCY ANEMIA, UNSPECIFIED 02/27/2019 PHYLLIS NIETO MD Ot E11.51 TYPE 2 DIABETES W DIABETIC PERIPHERAL AN 02/27/2019 PHYLLIS NIETO MD Ot E78.5 HYPERLIPIDEMIA, UNSPECIFIED 02/27/2019 PHYLLIS NIETO MD Ot I10 ESSENTIAL (PRIMARY) HYPERTENSION 02/27/2019 PHYLLIS NIETO MD Ot I25.10 ATHSCL HEART DISEASE OF [place] CORONARY 02/27/2019 PHYLLIS NIETO MD Ot I25.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 02/27/2019 PHYLLIS NIETO MD Ot 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 MITRAL (VALVE) INSUFFICIENC 02/27/2019 PHYLLIS NIETO MD Ot I65.23 OCCLUSION AND STENOSIS OF BILATERAL PAINTER 02/27/2019 PHYLLIS NIETO MD Ot I70.1 ATHEROSCLEROSIS OF RENAL ARTERY 02/27/2019 PHYLLIS NIETO MD Ot R82.90 UNSPECIFIED ABNORMAL FINDINGS IN URINE 02/27/2019 PHYLLIS NIETO MD Ot Z79.4 ASSISTED (CURRENT) USE OF INSULIN 02/27/2019 PHYLLIS NIETO MD Ot 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 02/27/2019 PHYLLIS NIETO MD, Ot Z87.891 PERSONAL HISTORY OF NICOTINE DEPENDENCE 02/27/2019 PHYLLIS NIETO MD Ot Z95.1 PRESENCE OF AORTOCORONARY BYPASS GRAFT 02/27/2019 PHYLLIS NIETO MD Ot Z95.820 PERIPHERAL VASCULAR ANGIOPLASTY STATUS W 03/03/2019 PHYLLIS NIETO MD Ot D50.9 IRON DEFICIENCY ANEMIA, UNSPECIFIED 03/03/2019 PHYLLIS NIETO MD Ot E11.51 TYPE 2 DIABETES W DIABETIC PERIPHERAL AN 03/03/2019 PHYLLIS NIETO MD Ot E78.5 HYPERLIPIDEMIA, UNSPECIFIED 03/03/2019 PHYLLIS NIETO MD Ot I10 ESSENTIAL (PRIMARY) HYPERTENSION 03/03/2019 PHYLLIS NIETO MD Ot I25.10 ATHSCL HEART DISEASE OF [place] CORONARY 03/03/2019 PHYLLIS NIETO MD Ot I25.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 03/03/2019 PHYLLIS NIETO MD Ot 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 MITRAL (VALVE) INSUFFICIENC 03/03/2019 PHYLLIS NIETO MD Ot I65.23 OCCLUSION AND STENOSIS OF BILATERAL PAINTER 03/03/2019 PHYLLIS NIETO MD Ot I70.1 ATHEROSCLEROSIS OF RENAL ARTERY 03/03/2019 PHYLLIS NIETO MD Ot R82.90 UNSPECIFIED ABNORMAL FINDINGS IN URINE 03/03/2019 PHYLLIS NIETO MD Ot 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 03/03/2019 PHYLLIS NIETO MD, Ot 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 03/03/2019 PHYLLIS NIETO MD Ot Z87.891 PERSONAL HISTORY OF NICOTINE DEPENDENCE 03/03/2019 PHYLLIS NIETO MD Ot Z95.1 PRESENCE OF AORTOCORONARY BYPASS GRAFT 03/03/2019 PHYLLIS NIETO MD Ot Z95.820 PERIPHERAL VASCULAR ANGIOPLASTY STATUS W 03/10/2019 VIJAY ATKINS Ot D64.9 ANEMIA, UNSPECIFIED 03/10/2019 VIJAY ATKINS Ot 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 AUTONOMIC (PO 03/10/2019 WILBERT VIJAY Meza Ot E78.5 HYPERLIPIDEMIA, UNSPECIFIED 03/10/2019 WILBERTVIJAY Ot F17.210 NICOTINE DEPENDENCE, CIGARETTES, UNCOMPL 03/10/2019 WILBERTVIJAY Ot I10 ESSENTIAL (PRIMARY) HYPERTENSION 03/10/2019 WILBERTVIJAY Ot I25.10 ATHSCL HEART DISEASE OF [place] CORONARY 03/10/2019 VIJAY ATKINS Ot I73.9 PERIPHERAL VASCULAR DISEASE, UNSPECIFIED 03/10/2019 WILBERTVIJAY Ot R42 DIZZINESS AND GIDDINESS 03/10/2019 VIJAY ATKINS Ot 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 03/10/2019 VIJAY ATKINS Ot Z79.899 OTHER ASSISTED (CURRENT) DRUG THERAPY 03/10/2019 VIJAY ATKINS Ot Z95.1 PRESENCE OF AORTOCORONARY BYPASS GRAFT 03/10/2019 VIJAY ATKINS Ot Z95.820 PERIPHERAL VASCULAR ANGIOPLASTY STATUS W 03/16/2019 PRAVEEN VILLAVICENCIO Ot E78.5 HYPERLIPIDEMIA, UNSPECIFIED 03/16/2019 PRAVEEN VILLAVICENCIO Ot I07.1 RHEUMATIC TRICUSPID INSUFFICIENCY 03/16/2019 PRAVEEN VILLAVICENCIO Ot I10 ESSENTIAL (PRIMARY) HYPERTENSION 03/16/2019 PRAVEEN VILLAVICENCIO Ot I25.10 ATHSCL HEART DISEASE OF [place] CORONARY 03/16/2019 PARVEEN VILLAVICENCIO Ot R07.9 CHEST PAIN, UNSPECIFIED 03/17/2019 PRAVEEN VILLAVICENCIO Ot E78.5 HYPERLIPIDEMIA, UNSPECIFIED 03/17/2019 PRAVEEN VILLAVICENCIO Ot I10 ESSENTIAL (PRIMARY) HYPERTENSION 03/17/2019 PRAVEEN VILLAVICENCIO Ot I25.10 ATHSCL HEART DISEASE OF [place] CORONARY 03/17/2019 PRAVEEN VILLAVICENCIO Ot R07.9 CHEST PAIN, UNSPECIFIED 04/09/2019 VIJAY ATKINS Ot D64.9 ANEMIA, UNSPECIFIED 04/09/2019 VIJAY ATKINS Ot 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 AUTONOMIC (PO 04/09/2019 VIJAY ATKINS Ot E78.5 HYPERLIPIDEMIA, UNSPECIFIED 04/09/2019 VIJAY ATKINS Derrick Ot F17.210 NICOTINE DEPENDENCE, CIGARETTES, UNCOMPL 04/09/2019 VIJAY ATKINS Derrick Ot I10 ESSENTIAL (PRIMARY) HYPERTENSION 04/09/2019 VIJAY ATKINS Derrick Ot I25.10 ATHSCL HEART DISEASE OF [place] CORONARY 04/09/2019 VIJAY ATKINS Derrick Ot I73.9 PERIPHERAL VASCULAR DISEASE, UNSPECIFIED 04/09/2019 VIJAY ATKINS Derrick Ot R42 DIZZINESS AND GIDDINESS 04/09/2019 VIJAY ATKINS Derrick Ot 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 Results Test [...] Automated erythrocyte mean corpuscular hemoglobin concentration measurement (mass/volume) 33 g/dL 32-36 Automated erythrocyte distribution width ratio 13.4 % 10.0- 14.5 Automated blood platelet count (count/volume) 175 10*3/uL [...] Blood monocytes automated count (number/volume) 0.8 10*3 0.0- 1.0 Automated eosinophil count 0.1 10*3/uL 0.0-0.3 Automated blood basophil count (count/volume) 0.0 10*3/uL 0.0-0.1 Blood type T Indirect antibody screen panel - 10/04/17 09:35 ABO+Rh group ABP NRG Blood group antibody screen NEGATIVE NRG Methicillin resistant Staphylococcus aureus (MRSA) screening culture - 10/04/17 09:35 Methicillin resistant Staphylococcus aureus (MRSA) screening culture NEG NRG Blood type T Indirect antibody screen panel - 10/11/17 06:26 ABO+Rh group ABP NRG Transfusion band number [id number] NRG Blood group antibody screen NEGATIVE NRG Capillary blood glucose measurement by glucometer (mass/volume) - 10/11/17 06:39 Capillary blood glucose measurement by glucometer (mass/volume) [...] Automated erythrocyte mean corpuscular hemoglobin concentration measurement (mass/volume) 34 g/dL 32-36 Automated erythrocyte distribution width ratio 13.5 % 10.0- 14.5 Automated blood platelet count (count/volume) 162 10*3/uL [...] Serum or plasma aspartate aminotransferase measurement (enzymatic activity/volume) 44 U/L 5-34 Serum or plasma alanine aminotransferase measurement (enzymatic activity/volume) 29 U/L 0-55 Serum or plasma protein measurement (mass/volume) 7.6 g/dL 6.4-8.2 Serum or plasma albumin measurement (mass/volume) 4.2 g/dL 3.2-4.5 Lipid 1996 panel - 03/05/18 07:11 Serum or plasma triglyceride measurement (mass/volume) 134 mg/dL <150 Serum or plasma cholesterol measurement (mass/volume) 132 mg/dL < 200 Serum or plasma cholesterol in HDL measurement (mass/volume) 36 mg/dL 40-60 Cholesterol in LDL [mass/volume] in serum or plasma by direct assay 70 mg/dL 1-129 Serum or plasma cholesterol in VLDL measurement (mass/volume) 27 mg/dL 5-40 Methicillin resistant Staphylococcus aureus (MRSA) screening culture - 03/05/18 07:11 Methicillin resistant Staphylococcus aureus (MRSA) screening [...] Automated erythrocyte mean corpuscular hemoglobin concentration measurement (mass/volume) 29 g/dL 32-36 Automated erythrocyte distribution width ratio 15.0 % 10.0- 14.5 Automated blood platelet count (count/volume) 247 10*3/uL [...] Blood monocytes automated count (number/volume) 0.7 10*3 0.0- 1.0 Automated eosinophil count 0.1 10*3/uL 0.0-0.3 Automated [...] Serum or plasma aspartate aminotransferase measurement (enzymatic activity/volume) 36 U/L 5-34 Serum or plasma alanine aminotransferase measurement (enzymatic activity/volume) 29 U/L 0-55 Serum or plasma protein [...] Automated erythrocyte mean corpuscular hemoglobin concentration measurement (mass/volume) 30 g/dL 32-36 Automated erythrocyte distribution width ratio 16.5 % 10.0- 14.5 Automated blood platelet count (count/volume) 229 10*3/uL [...] Blood monocytes automated count (number/volume) 0.8 10*3 0.0- 1.0 Automated eosinophil count 0.1 10*3/uL 0.0-0.3 Automated [...] Automated erythrocyte mean corpuscular hemoglobin concentration measurement (mass/volume) 29 g/dL 32-36 Automated erythrocyte distribution width ratio 18.3 % 10.0- 14.5 Automated blood platelet count (count/volume) 216 10*3/uL [...] Blood monocytes automated count (number/volume) 0.9 10*3 0.0- 1.0 Automated eosinophil count 0.1 10*3/uL 0.0-0.3 Automated [...] Serum or plasma aspartate aminotransferase measurement (enzymatic activity/volume) 43 U/L 5-34 Serum or plasma alanine aminotransferase measurement (enzymatic activity/volume) 27 U/L 0-55 Serum or plasma protein measurement (mass/volume) 7.8 g/dL 6.4-8.2 Serum or plasma albumin measurement (mass/volume) 4.0 g/dL 3.2-4.5 CALCIUM CORRECTED 9.7 mg/dL 8.5-10.1 Magnesium - 10/18/18 18:35 Magnesium 1.4 mg/dL 1.8-2.4 Serum or plasma troponin i.cardiac measurement (mass/volume) - 10/18/18 18:35 Serum or plasma troponin i.cardiac measurement (mass/volume) < ng/mL <0.30 Lipase - 10/18/18 18:35 Lipase 144 U/L 8-78 Serum or plasma lithium measurement (moles/volume) - 10/18/18 18:35 BNP level 99.0 pg/mL <100.0 RED CELLS LEUKO REDUCED AS1 - 10/18/18 18:35 RED CELLS LEUKO REDUCED AS1 TRANSFUSED 10/18/18 2314 NRG Blood type T Indirect antibody screen panel - 10/18/18 18:35 ABO+Rh group ABP NRG Transfusion band number [id number] NRG Blood group antibody screen NEGATIVE NRG Complete urinalysis with reflex to culture - 10/18/18 20:17 Urine color determination YELLOW NRG Urine clarity determination CLEAR NRG Urine pH measurement by test strip 6 5-9 Specific gravity of urine by test strip 1.015 1.016-1.022 Urine protein assay by test strip, semi-quantitative [...] sediment leukocyte count by microscopy (number/high power field) [HPF] NRG Bacteria detection in urine sediment [...] Automated erythrocyte mean corpuscular hemoglobin concentration measurement (mass/volume) 30 g/dL 32-36 Automated erythrocyte distribution width ratio 18.3 % 10.0- 14.5 Automated blood platelet count (count/volume) 187 10*3/uL [...] Blood monocytes automated count (number/volume) 0.7 10*3 0.0- 1.0 Automated eosinophil count 0.1 10*3/uL 0.0-0.3 Automated [...] Serum or plasma aspartate aminotransferase measurement (enzymatic activity/volume) 40 U/L 5-34 Serum or plasma alanine aminotransferase measurement (enzymatic activity/volume) 25 U/L 0-55 Serum or plasma protein measurement (mass/volume) 7.3 g/dL 6.4-8.2 Serum or plasma albumin measurement (mass/volume) 3.6 g/dL 3.2-4.5 CALCIUM CORRECTED 9.5 mg/dL 8.5-10.1 Magnesium - 10/19/18 05:21 Magnesium 1.4 mg/dL 1.8-2.4 Morning cortisol measurement - 10/19/18 05:21 Cortisol AM 12.9 % 3.7-19.4 Capillary blood glucose measurement by glucometer (mass/volume) - 10/19/18 05:29 Capillary blood glucose measurement by glucometer (mass/volume) 187 mg/dL 70-110 Stool occult blood screen - 10/19/18 07:30 Stool gastrointestinal hemoglobin detection POSITIVE NEGATIVE Capillary blood glucose measurement by glucometer (mass/volume) - 10/19/18 11:04 Capillary blood glucose measurement by glucometer (mass/volume) 212 mg/dL 70-110 Capillary blood glucose measurement by glucometer (mass/volume) - 10/31/18 12:16 Capillary blood glucose measurement by glucometer (mass/volume) 185 mg/dL 70-110 Complete urinalysis with reflex to culture - 02/27/19 07:20 Urine color determination YELLOW NRG Urine clarity determination CLEAR NRG Urine pH measurement by test strip 6 5-9 Specific gravity of urine by test strip 1.020 1.016-1.022 Urine protein assay by test strip, semi-quantitative [...] sediment leukocyte count by microscopy (number/high power field) [HPF] NRG Bacteria detection in urine sediment [...] urine sediment by light microscopy 5-10 NRG Bacterial urine culture - 02/27/19 07:20 Bacterial urine culture NG NRG Automated blood complete blood count (hemogram) [...] Automated erythrocyte mean corpuscular hemoglobin concentration measurement (mass/volume) 31 g/dL 32-36 Automated erythrocyte distribution width ratio 19.2 % 10.0- 14.5 Automated blood platelet count (count/volume) 179 10*3/uL [...] (mass/volume) 10.5 mg/dL 8.5-10.1 Serum or plasma total bilirubin measurement (mass/volume) 0.4 mg/dL 0.1-1.0 Serum or plasma alkaline phosphatase measurement (enzymatic activity/volume) 154 U/L 40-136 Serum or plasma aspartate aminotransferase measurement (enzymatic activity/volume) 63 U/L 5-34 Serum or plasma alanine aminotransferase measurement (enzymatic activity/volume) 54 U/L 0-55 Serum or plasma protein measurement (mass/volume) 8.9 g/dL 6.4-8.2 Serum or plasma albumin measurement (mass/volume) 4.2 g/dL 3.2-4.5 CALCIUM CORRECTED 10.3 mg/dL 8.5-10.1 Lipid 1996 panel - 02/27/19 07:28 Serum or plasma triglyceride measurement (mass/volume) 177 mg/dL <150 Serum or plasma cholesterol measurement (mass/volume) 129 mg/dL < 200 Serum or plasma cholesterol in HDL measurement (mass/volume) 39 mg/dL 40-60 Cholesterol in LDL [mass/volume] in serum or plasma by direct assay 69 mg/dL 1-129 Serum or plasma cholesterol in VLDL measurement (mass/volume) 35 mg/dL 5-40 PT panel in platelet poor plasma by coagulation assay - 02/27/19 07:28 Prothrombin time (PT) in platelet poor plasma by coagulation assay 14.9 s 12.2-14.7 INR in platelet poor plasma or blood by coagulation assay 1.1 0.8-1.4 Activated partial thromboplastin time (aPTT) in platelet poor plasma bycoagulation assay - 02/27/19 07:28 Activated partial thromboplastin time (aPTT) in platelet poor plasma bycoagulation assay 35 s 24-35 Methicillin resistant Staphylococcus aureus (MRSA) screening culture - 02/27/19 07:28 Methicillin resistant Staphylococcus aureus (MRSA) screening culture NEG NRG Encounters ACCT No. Visit Date/Time Discharge Status Pt. Type Provider Facility Loc./Unit Complaint [id number] 04/23/2019 14:25:00 04/23/2019 23:59:59 CLS Outpatient VIJAY ATKINS [facility] ONC [id number] 04/17/2019 14:01:00 04/17/2019 23:59:59 CLS Outpatient VIJAY ATKINS [facility] RAD ELEVATED GASTRIN LEVEL,GASTRITIS,GI BLEED [id number] 02/27/2019 06:51:00 02/27/2019 14:00:00 DIS Outpatient PHYLLIS NIETO MD [facility] CATH ABN STRESS [id number] 02/25/2019 07:00:00 02/25/2019 23:59:59 CLS Outpatient PRAVEEN VILLAVICENCIO [facility] CARD CHEST PAIN,HTN,CAD [id number] 02/18/2019 08:42:00 02/18/2019 23:59:59 CLS Outpatient PRAVEEN VILLAVICENCIO [facility] CARD HTN,CAD,CHEST PAIN [id number] 02/12/2019 13:07:00 02/18/2019 00:01:00 DIS Outpatient VIJAY ATKINS [facility] ONC [id number] 12/29/2018 09:00:00 12/29/2018 23:59:59 CLS Preadmit PHYLLIS NIETO MD [facility] CR STATUS POST ACB [id number] 10/13/2018 12:30:00 12/28/2018 00:01:00 DIS Outpatient PHYLLIS NIETO MD [facility] CR STATUS POST ACB [id number] 10/23/2018 14:52:00 11/20/2018 13:33:00 DIS Outpatient VIJAY ATKINS [facility] ONC [id number] 10/31/2018 11:24:00 10/31/2018 14:15:00 DIS Outpatient OLIVIA SORENSON MD [facility] ENDO ANEMIA [id number] 10/27/2018 05:50:00 10/27/2018 13:34:00 DIS Outpatient OLIVIA SORENSON MD [facility] PREOP EGD [id number] 10/18/2018 20:30:00 10/19/2018 15:15:00 DIS Inpatient YEIMY BARKER, KRISTEN Potts [facility] 4TH SEVERE ANEMIA HYPOTENSION,HPOMAGNESSEMA,DEHYDRATIO [id number] 07/17/2018 13:58:00 07/18/2018 00:01:00 DIS Outpatient VIJAY ATKINS [facility] ONC [id number] 06/17/2018 14:41:00 07/17/2018 13:56:00 DIS Outpatient VIJAY ATKINS [facility] ONC [id number] 05/15/2018 17:05:00 05/15/2018 23:59:59 CLS Outpatient PHYLLIS NIETO MD [facility] LAB ANEMIA [id number] 05/08/2018 15:17:00 05/08/2018 23:59:59 CLS Outpatient PHYLLIS NIETO MD [facility] CARD CAD,CHEST PAIN,HTN,DIZZINESS [id number] 05/01/2018 17:04:00 05/01/2018 18:04:00 DIS Emergency CRISTELA DO, MIKEY K [facility] ER DIZZINESS;FALL AT HOME [id number] 04/09/2018 12:51:00 04/09/2018 23:59:59 CLS Outpatient ALAN ROD MD [facility] RAD I25.810 [id number] 03/05/2018 06:49:00 03/05/2018 13:00:00 DIS Outpatient PHYLLIS NIETO MD [facility] CATH ABN STRESS TEST,CAD,HTN [id number] 02/19/2018 07:43:00 02/19/2018 23:59:59 CLS Outpatient PHYLLIS NIETO MD [facility] CARD CAD [id number] 10/11/2017 06:09:00 10/11/2017 09:40:00 DIS Outpatient NANCY JOHN RODRIGUEZ [facility] SDC THICKENED ENDOMETRIUM [id number] 10/04/2017 09:10:00 10/04/2017 10:03:00 DIS Outpatient JOHN CRUZ DO [facility] PREOP THICKENED ENDOMETRIUM [id number] 09/18/2017 09:25:00 09/18/2017 12:10:00 DIS Outpatient OLIVIA SORENSON MD [facility] ENDO FAM HX COLON CA, HX POLYPS [id number] 09/12/2017 14:30:00 09/12/2017 14:54:00 DIS Outpatient OLIVIA SORENSON MD [facility] PREOP COLO [id number] 08/29/2017 14:52:00 08/29/2017 23:59:59 CLS Outpatient UDAY SALAZAR MD [facility] RAD ABDOMINAL PAIN LUQ R10.12 [id number] 08/26/2017 06:43:00 08/26/2017 23:59:59 CLS Outpatient UDAY SALAZAR MD [facility] RAD ABDOMINAL PAIN LEFT UPPER QUADRANT [id number] 08/08/2017 15:15:00 08/08/2017 23:59:59 CLS Preadmit UDAY SALAZAR MD [facility] RAD LUQ ABD PAIN [id number] 02/27/2016 07:08:00 02/27/2016 23:59:59 CLS Outpatient PRAVEEN VILLAVICENCIO [facility] CARD [id number] 02/21/2016 14:51:00 02/21/2016 23:59:59 CLS Outpatient PRAVEEN VILLAVICENCIO [facility] CARD CAD,HTN,HLP, NIDDM [id number] 02/14/2016 13:02:00 02/14/2016 23:59:59 CLS Outpatient GERSON BARKER, PHYLLIS Morales [facility] RAD [id number] 04/29/2019 11:00:00 PEN Preadmit OLIVIA SORENSON MD [facility] ENDO ANEMIA/INCREASED GASTRIC LEVELS [id number] 04/28/2019 05:57:00 ACT Outpatient OLIVIA SORENSON MD [facility] PREOP EGD [id number] 10/27/2018 13:19:00 Document Registration [id number] 06/24/2018 11:37:00 Document Registration [id number] 06/24/2018 11:32:00 Document Registration [id number] 02/21/2016 14:51:00 Document Registration [id number] 02/25/2013 10:45:00 Document Registration [id number] 08/13/2011 07:02:00 Document Registration [id number] 08/10/2011 08:28:00 Document Registration [id number] 07/13/2010 09:21:00 Document Registration [id number] 07/11/2009 10:05:00 Document Registration [id number] 10/27/2008 14:58:00 Document Registration [id number] 07/23/2008 19:29:00 Document Registration [id number] 06/16/2007 16:49:00 Document Registration [id number] 05/01/2006 09:14:00 Document Registration
[2019-04-29 11:35] VITALS: BP 115/87
[2019-04-29] MEDS ORDERED: fentaNYL INJECTION 100 MCG/2 ML AMP ONE (11:35)
[2019-04-29] MEDS ORDERED: MIDAZOLAM 2 MG/2 ML (VERSED) VIAL ONE ×5 (11:35→11:57)
[2019-04-29] MEDS ORDERED: LIDOCAINE JELLY 2% 6 ML SYRINGE ONE (11:35)
[2019-04-29] MEDS ORDERED: HURRICAINE EXT TUBE (BENZOCAINE) ONE (11:36)
[2019-04-29] MEDS ORDERED: NS IV 500 ML 500 ML IV PRN (11:47)
[2019-04-29] MEDS ORDERED: proPOfol 200 MG/20 ML (DIPRIVAN) VIAL IV ONE (11:57)
--- NOTE | 2019-04-29 11:58 | Conscious Sedation/ASA ---
Conscious Sedation Pre-Proced Time 11:30 ASA Score 3 For ASA 3 and 4: Consider anesthesia and medical clearance. Also, for patients with a history of failed moderate sedation consider anesthesia. Airway Lungs Heart ASA score ASA 1: a normal healthy patient ASA 2: a patient with a mild systemic disease (mid diabetes, controlled hypertension, obesity ASA 3: a patient with a severe systemic disease that limits activity (angina, COPD, prior Myocardial infarction) ASA 4: a patient with an incapacitating disease that is a constant threat to life (CHF, renal failure) ASA 5: a moribund patient not expected to survive 24 hrs. (ruptured aneurysm) ASA 6: a declared brain- patient whose organs are being harvested. For emergent operations, add the letter E after the classification Mallampati Classification Grade 2 Sedation Plan Analgesia, Amnesia, Plan communicated to team members, Discussed options with patient/fam, Discussed risks with patient/fam The patient is an appropriate candidate to undergo the planned procedure, sedation, and anesthesia. The patient immediately re-assessed prior to indication. OLIVIA SORENSON MD Apr 29, 2019 11:58
--- NOTE | 2019-04-29 11:59 | Progress Note-Pre Operative ---
Pre-Operative Progress Note H&P Reviewed The H&P was reviewed, patient examined and no changes noted. Date Seen by Provider: Apr 29, 2019 Time Seen by Provider: 11:30 Date H&P Reviewed: Apr 29, 2019 Time H&P Reviewed: 11:30 Pre-Operative Diagnosis: anemia, hx severe gastritis. OLIVIA SORENSON MD Apr 29, 2019 11:59
[2019-04-29] MEDS ORDERED: ONDANSETRON 4 MG/2 ML (SDV) Z0FRAN IVP PRN (12:00)
[2019-04-29] MEDS ORDERED: HYDROcodone/APAP 5 MG/325 MG (LORTAB) TAB PO PRN (12:00)
[2019-04-29] MEDS ORDERED: HURRICAINE EXT TUBE (BENZOCAINE) XX PRN (12:00)
[2019-04-29] MEDS ORDERED: MIDAZOLAM 2 MG/2 ML (VERSED) VIAL IVP ONE (12:00)
[2019-04-29] MEDS ORDERED: ACETAMINOPHEN 325 MG TABLET PO PRN (12:00)
[2019-04-29] MEDS ORDERED: fentaNYL INJECTION 100 MCG/2 ML AMP IVP ONE (12:00)
[2019-04-29] MEDS ORDERED: LIDOCAINE JELLY 2% 6 ML SYRINGE MM PRN (12:00)
[2019-04-29] MEDS ORDERED: morphine INJ 10 MG/ML 1ML (SYR OR VIAL) IVP PRN ×2 (12:00)
--- NOTE | 2019-04-29 12:01 | Discharge Inst-Surgical ---
D/C Lap Instructions-YAS Follow Up Appt in 6 weeks Activity as tolerated High Fiber Diet 25g or more per day Avoid Alcohol, Caffeine, Spicy [place] and Acid foods. Drink 64 fluid oz or more of fluids per day. Symptoms to Report: Fever over 101 degree F, Nausea/Vomiting If any problems/questions: Contact your physician or go to Emergency Room OLIVIA SORENSON MD Apr 29, 2019 12:01
[2019-04-29] MEDS ORDERED: PROPOFOL INJECTION 50 ML IV ONE (12:05)
--- NOTE | 2019-04-29 12:41 | Progress Note-Post Operative ---
Post-Operative Progess Note Surgeon (s)/Neurodiagnostic Tech (s) Surgeon OLIVIA SORENSON MD Neurodiagnostic Tech: none Pre-Operative Diagnosis anemia, hx severe gastritis. Post-Operative Diagnosis reflux esophagitis(stage 2), small HH(2cm), prominent fundal gastric folds, mod-severe gastritis, duodenal lesion. Procedure & Operative Findings Date of Procedure 04/29/19 Procedure Performed/Findings EGD with bx. Anesthesia Type MAC Estimated Blood Loss Estimated blood loss (mL): minimal Specimens/Packing Specimens Removed duodenal lesion, antrum, ge jxn OLIVIA SORENSON MD Apr 29, 2019 12:41
[2019-04-29 12:45] VITALS: BP 96/59
[2019-04-29 13:15] VITALS: BP_SYST 110; BP_SYST 96; BP_DIAS 59; BP_DIAS 72
--- NOTE | 2019-04-29 20:06 | OPERATIVE REPORT ---
DATE OF SERVICE: 04/29/2019 ATTENDING PHYSICIAN: Dr. Barnes. PREOPERATIVE DIAGNOSES: Anemia, hypergastrinemia, history of gastritis and peptic ulcer disease. POSTOPERATIVE DIAGNOSES: Reflux esophagitis stage II, small hiatal hernia 2 cm in size, prominent rugal folds of the stomach, antrum and body were identified. There was also moderate to severe gastritis of the antrum. There was some superficial erosions; however, no formal ulcerations. This inflammation also did continue through the pylorus into the duodenum. There was a lesion identified in the first part of the duodenum; however, this may have been a prominent fold; however, this was biopsied. PROCEDURE: EGD with biopsy. SURGEON: Karen Gomes MD ANESTHESIA: Monitored anesthesia care. ESTIMATED BLOOD LOSS: Minimal. FINDINGS: Same as postoperative. DISPOSITION: The patient tolerated the procedure well. INDICATIONS: The patient is a 68-year-old female known to us. We had initially seen in 08/2017 for a screening colonoscopy for history of polyps as well as a family history of colon cancer. She was found to have moderate sigmoid diverticulosis as well as small polyp of the transverse colon and ascending colon, which were both benign tubular adenomas. In 01/2018, she underwent a coronary artery bypass grafting as well as a lower extremity arterial stent placement. Since that time, she has been having issues with anemia requiring blood and iron transfusions. She did undergo an EGD with biopsies and found to have a reflux esophagitis, small hiatal hernia as well as moderate severity gastritis with diffuse increased rugal folds. Biopsies were negative for H. pylori as well as negative for Medina's esophagus. She again has had some issues with anemia as well as increased heartburn and belching. She states that she did have recent work laboratory work done which did show an elevated gastrin. She does not report any hematemesis, no coffee ground emesis. DESCRIPTION OF PROCEDURE: The patient was brought to the endoscopy suite, laid in the left lateral decubitus position with head slightly elevated. After adequate IV pain and sedating medications and monitored anesthesia care, the mouthpiece was applied. The endoscope was then placed in the mouth, visualizing the pharynx and hypopharyngeal region. Vocal cords, epiglottis and vallecula identified and appeared to be normal. The endoscope was then gently intubated at the esophageal opening and esophagus insufflated. The endoscope was then advanced to the first, second and third portions of the esophagus at the level of the GE junction, a reflux esophagitis, stage II identified. There were no ulcers or strictures identified in this region. A biopsy was taken of the GE junction with forceps with visualization of good hemostasis. The endoscope was then advanced in the stomach and endoscope retroflexed, visualizing a small hiatal hernia approximately 2 cm in size. There were again increased rugal folds identified at the fundus and body of the stomach. There was also moderate to severe gastritis of the antrum with some superficial erosions; however, no formal ulcerations. Biopsy was taken of the antrum to rule out H. pylori with forceps with visualization of good hemostasis. The endoscope was then advanced to the pylorus into the first and second portion of the duodenum. The inflammation also did extend through these regions as well. At the first part of the duodenum a submucosal lesion was identified, which was biopsied. This lesion was approximately 6 to 8 mm in size. Biopsies were taken with visualization of good hemostasis. The endoscope was then slowly withdrawn while taking a second look and suctioning residual air with no additional findings. The patient tolerated the procedure well. We will await the biopsy results. We will further investigate the levels of her gastrin levels and if indicated the next step would be to do pentagastrin stimulation test to see if she has continued elevated gastrin. If this is the case she will need further evaluation for possible Sameer-Murrell syndrome and a gastrinoma. If this were the case, we would then refer her to gastroenterology for an endoscopic ultrasound as well as a high resolution CT scan as well as possible octreotide scan for identification and possible further evaluation for surgery. Job ID: [id number] DocumentID: [id number] Dictated Date: 04/29/2019 12:48:44 Grey Inspector Date: 04/29/2019 20:06:25 Dictated By: MD BESSIE CHAUDHARI
== END 2019-04-29 13:35 | disposition home or self-care (01) ==
LOC: ENDO 11:13
PROVIDERS: ATTEND Surgery
DX: K21.0 Gastro-esophageal reflux disease with esophagitis (principal); K44.9 Diaphragmatic hernia without obstruction or gangrene; K29.70 Gastritis, unspecified, without bleeding; K25.9 Gastric ulcer, unspecified as acute or chronic, without hemorrhage or perforation; K31.89 Other diseases of stomach and duodenum; Z86.010 Personal history of colon polyps; Z95.5 Presence of coronary angioplasty implant and graft; Z95.1 Presence of aortocoronary bypass graft; E11.40 Type 2 diabetes mellitus with diabetic neuropathy, unspecified; I25.10 Atherosclerotic heart disease of native coronary artery without angina pectoris; E78.00 Pure hypercholesterolemia, unspecified; F41.9 Anxiety disorder, unspecified; F32.9 Major depressive disorder, single episode, unspecified; Z79.4 Long term (current) use of insulin; Z79.899 Other long term (current) drug therapy; Z87.891 Personal history of nicotine dependence; Z91.040 Latex allergy status; Z80.0 Family history of malignant neoplasm of digestive organs; Z80.3 Family history of malignant neoplasm of breast; Z80.41 Family history of malignant neoplasm of ovary; Z80.49 Family history of malignant neoplasm of other genital organs; Z87.11 Personal history of peptic ulcer disease

== ENCOUNTER 2019-05-12 10:22 | Outpatient (RCR) | payer MEDICARE, OTHER ==
[2019-03-09 14:56] LABS: BASOPHILS % (AUTO) 0 % (0-10); EOSINOPHILS # (AUTO) 0.1 10^3/uL (0.0-0.3); EOSINOPHILS % (AUTO) 2 % (0-10); HEMATOCRIT 39 % (35-52); HEMOGLOBIN 11.9 G/DL (11.5-16.0); LYMPHOCYTES # (AUTO) 1.6 X 10^3 (1.0-4.0); LYMPHOCYTES % (AUTO) 23 % (12-44); MEAN CORPUSCULAR HEMOGLOBIN 27 PG (25-34); MEAN CORPUSCULAR HGB CONC 30 G/DL (32-36); MEAN CORPUSCULAR VOLUME 89 FL (80-99); MEAN PLATELET VOLUME 11.5 FL (7.4-10.4); MONOCYTES # (AUTO) 0.6 X 10^3 (0.0-1.0); MONOCYTES % (AUTO) 8 % (0-12); NEUTROPHILS # (AUTO) 4.7 X 10^3 (1.8-7.8); NEUTROPHILS % (AUTO) 67 % (42-75); PLATELET COUNT 187 10^3/uL (130-400); RED CELL DISTRIBUTION WIDTH 18.4 % (10.0-14.5)
[2019-04-06 12:27] LABS: BASOPHILS % (AUTO) 0 % (0-10); EOSINOPHILS # (AUTO) 0.1 10^3/uL (0.0-0.3); EOSINOPHILS % (AUTO) 2 % (0-10); HEMATOCRIT 32 % (35-52); HEMOGLOBIN 9.8 G/DL (11.5-16.0); LYMPHOCYTES # (AUTO) 1.4 X 10^3 (1.0-4.0); LYMPHOCYTES % (AUTO) 23 % (12-44); MEAN CORPUSCULAR HEMOGLOBIN 26 PG (25-34); MEAN CORPUSCULAR HGB CONC 31 G/DL (32-36); MEAN CORPUSCULAR VOLUME 84 FL (80-99); MEAN PLATELET VOLUME 11.5 FL (7.4-10.4); MONOCYTES # (AUTO) 0.5 X 10^3 (0.0-1.0); MONOCYTES % (AUTO) 8 % (0-12); NEUTROPHILS # (AUTO) 4.1 X 10^3 (1.8-7.8); NEUTROPHILS % (AUTO) 67 % (42-75); PLATELET COUNT 162 10^3/uL (130-400); RED CELL DISTRIBUTION WIDTH 17.3 % (10.0-14.5); WHITE BLOOD COUNT 6.2 10^3/uL (4.3-11.0)
[2019-04-06 12:57] LABS: ALBUMIN 3.7 GM/DL (3.2-4.5); BILIRUBIN,TOTAL 0.3 MG/DL (0.1-1.0); CALCIUM 9.8 MG/DL (8.5-10.1); CREATININE SERUM 1.01 MG/DL (0.60-1.30); POTASSIUM 3.5 MMOL/L (3.6-5.0); TOTAL PROTEIN 7.7 GM/DL (6.4-8.2)
[~2019-05-12 10:22] MED LIST changes: +FERRIC CARBOXYMALTOSE (CANCER) 750 MG in NS (IVPB) CANCER CENTER 250 ML IV SCH
[2019-05-12 10:33] LABS: BASOPHILS % (AUTO) 0 % (0-10); EOSINOPHILS # (AUTO) 0.2 10^3/uL (0.0-0.3); EOSINOPHILS % (AUTO) 2 % (0-10); HEMATOCRIT 39 % (35-52); HEMOGLOBIN 11.9 G/DL (11.5-16.0); LYMPHOCYTES # (AUTO) 1.8 X 10^3 (1.0-4.0); LYMPHOCYTES % (AUTO) 24 % (12-44); MEAN CORPUSCULAR HEMOGLOBIN 28 PG (25-34); MEAN CORPUSCULAR HGB CONC 31 G/DL (32-36); MEAN CORPUSCULAR VOLUME 91 FL (80-99); MEAN PLATELET VOLUME 11.4 FL (7.4-10.4); MONOCYTES # (AUTO) 0.7 X 10^3 (0.0-1.0); MONOCYTES % (AUTO) 9 % (0-12); NEUTROPHILS # (AUTO) 4.8 X 10^3 (1.8-7.8); NEUTROPHILS % (AUTO) 65 % (42-75); PLATELET COUNT 158 10^3/uL (130-400); RED CELL DISTRIBUTION WIDTH 21.5 % (10.0-14.5); WHITE BLOOD COUNT 7.5 10^3/uL (4.3-11.0)
[2019-05-12 10:56] LABS: ALANINE AMINOTRANSFERASE 46 U/L (0-55); ALBUMIN 3.9 GM/DL (3.2-4.5); ALKALINE PHOSPHATASE 143 U/L (40-136); BILIRUBIN,TOTAL 0.4 MG/DL (0.1-1.0); BUN/CREATININE RATIO 21; CALCIUM 9.9 MG/DL (8.5-10.1); CARBON DIOXIDE 23 MMOL/L (21-32); CHLORIDE 102 MMOL/L (98-107); CREATININE SERUM 0.87 MG/DL (0.60-1.30); GFR ESTIMATED > 60; GLUCOSE 181 MG/DL (70-105); POTASSIUM 3.5 MMOL/L (3.6-5.0); SODIUM 140 MMOL/L (135-145); TOTAL PROTEIN 8.3 GM/DL (6.4-8.2)
[2019-05-22] MEDS ORDERED: SUCR1TAB PO (12:25)
== END 2019-06-07 | disposition home or self-care (01) ==
LOC: ONC 10:22
PROVIDERS: ATTEND Internal Medicine Hematology & Oncology
DX: D64.9 Anemia, unspecified (principal); R42 Dizziness and giddiness; I25.10 Atherosclerotic heart disease of native coronary artery without angina pectoris; I10 Essential (primary) hypertension; E78.5 Hyperlipidemia, unspecified; E11.43 Type 2 diabetes mellitus with diabetic autonomic (poly)neuropathy; I73.9 Peripheral vascular disease, unspecified; F17.210 Nicotine dependence, cigarettes, uncomplicated; Z95.820 Peripheral vascular angioplasty status with implants and grafts; Z95.1 Presence of aortocoronary bypass graft; Z79.4 Long term (current) use of insulin; Z79.899 Other long term (current) drug therapy
CPT/HCPCS: 36415; 80053; 82728; 85025; 96365; 99213

== ENCOUNTER → 2019-05-15 | Outpatient (CLI) | payer MEDICARE, OTHER ==
[~2019-05-15] MED LIST changes: -FERRIC CARBOXYMALTOSE (CANCER) 750 MG in NS (IVPB) CANCER CENTER 250 ML IV SCH
--- NOTE | 2019-05-15 12:32 | Diagnostic Imaging Report ---
PROCEDURE: US Gallbladder. TECHNIQUE: Multiple real-time grayscale images were obtained over the right upper quadrant in various projections. INDICATION: Right upper quadrant pain, nausea, and vomiting. FINDINGS: Hepatomegaly. There is no obvious intrahepatic biliary ductal dilatation. Common bile duct is not well-seen. There is no gallbladder wall thickening. There does appear to be some adenomyomatosis. There is no cholelithiasis. The pancreas is obscured by bowel gas. Right kidney is unremarkable apart from a 1.7 cm cyst. No ascites. IMPRESSION: Sonographic findings suggestive of adenomyomatosis of the gallbladder. Small right renal cyst. Hepatomegaly. Dictated by: Dictated on workstation # [id number]
== END ==
LOC: RAD 08:29
PROVIDERS: ATTEND Surgery
DX: N28.1 Cyst of kidney, acquired (principal); R16.0 Hepatomegaly, not elsewhere classified
CPT/HCPCS: 76705

== ENCOUNTER → 2019-05-15 | Outpatient (CLI) | payer MEDICARE, OTHER ==
[2019-05-15 09:16] LABS: ALANINE AMINOTRANSFERASE 52 U/L (0-55); ALBUMIN 3.9 GM/DL (3.2-4.5); ALKALINE PHOSPHATASE 158 U/L (40-136); BILIRUBIN,TOTAL 0.3 MG/DL (0.1-1.0); BUN/CREATININE RATIO 25; CALCIUM 10.1 MG/DL (8.5-10.1); CARBON DIOXIDE 23 MMOL/L (21-32); CHLORIDE 102 MMOL/L (98-107); CHOLESTEROL 130 MG/DL (< 200); CREATININE SERUM 0.83 MG/DL (0.60-1.30); GFR ESTIMATED > 60; GLUCOSE 158 MG/DL (70-105); HDL CHOLESTEROL 35 MG/DL (40-60); POTASSIUM 3.8 MMOL/L (3.6-5.0); SODIUM 137 MMOL/L (135-145); TOTAL PROTEIN 8.2 GM/DL (6.4-8.2); TRIGLYCERIDES 173 MG/DL (<150); VLDL CHOLESTEROL 35 MG/DL (5-40)
== END ==
LOC: LAB 08:37
PROVIDERS: ATTEND Nurse Practitioner Family
DX: E11.9 Type 2 diabetes mellitus without complications (principal)
CPT/HCPCS: 36415; 80053; 80061; 82043

== ENCOUNTER 2019-05-22 12:10 | Outpatient (CLI) | payer MEDICARE, OTHER ==
[~2019-05-22] VITALS: Ht 170.2 cm; Wt 78.0 kg
[2019-05-22 12:20] VITALS: BP 83/48
[2019-05-22] MEDS ORDERED: SUCR1TAB PO (12:25)
== END 2019-05-22 12:35 | disposition home or self-care (01) ==
LOC: PREOP 12:10
PROVIDERS: ATTEND Surgery
DX: Z01.818 Encounter for other preprocedural examination (principal)
CPT/HCPCS: 87081

== ENCOUNTER 2019-06-08 05:52 | Outpatient (CLI) | payer MEDICARE, OTHER ==
[~2019-06-08] VITALS: Ht 170.2 cm; Wt 78.0 kg
[~2019-06-08 05:52] MED LIST changes: +SUCR1TAB PO
== END 2019-06-08 15:41 | disposition home or self-care (01) ==
LOC: PREOP 05:52
PROVIDERS: ATTEND Surgery
DX: Z01.818 Encounter for other preprocedural examination (principal)

== ENCOUNTER 2019-06-12 13:10 | Day surgery (SDC) | payer MEDICARE, OTHER ==
[~2019-06-12] VITALS: Ht 170.2 cm; Wt 78.0 kg
[~2019-06-12 13:10] MED LIST changes: -DULO60CA58 PO; +DULO60CA59 PO; -ROSU40TA22 PO; +ROSU40TA23 PO
--- OUTSIDE RECORDS SUMMARY | 2019-06-12 13:18 | XMS REPORT | Continuity of Care Document ---
Author Organization Unknown Address Unknown Allergies Active Description Code Type Severity Reaction Onset Reported/Identified Relationship to Patient Clinical Status Yes No Allergy Information Available [id number] Drug Allergy Unknown N/A 02/14/2016 Yes latex [id number] Drug Allergy Unknown HIVES 06/08/2019 Yes nickel [id number] Drug Allergy Unknown HIVES 06/08/2019 Medications There is no data. Problems Date [...] ATKINS Ot I25.10 ATHSCL HEART DISEASE OF [place] CORONARY 10/17/1332 VIJAY ATKINS Ot I73.9 PERIPHERAL VASCULAR DISEASE, UNSPECIFIED 10/17/1332 VIJAY ATKINS Ot R42 DIZZINESS AND GIDDINESS 10/17/1332 VIJAY ATKINS Ot Z79.4 FIELD INVESTIGATOR (CURRENT) USE OF INSULIN 10/17/1332 VIJAY ATKINS Ot Z79.899 OTHER FDC (CURRENT) DRUG THERAPY 10/17/1332 VIJAY ATKINS Ot [...] Derrick Ot I25.10 ATHSCL HEART DISEASE OF [place] CORONARY 10/17/1355 VIJAY ATKINS Derrick Ot I73.9 PERIPHERAL VASCULAR DISEASE, UNSPECIFIED 10/17/1355 VIJAY ATKINS Derrick Ot R42 DIZZINESS AND GIDDINESS 10/17/1355 VIJAY ATKINS Derrick Ot Z79.4 FIELD INVESTIGATOR (CURRENT) USE OF INSULIN 10/17/1355 VIJAY ATKINS Derrick Ot Z79.899 OTHER FIELD INVESTIGATOR (CURRENT) DRUG THERAPY 10/17/1355 VIJAY ATKINS Derrick [...] SANTANA-VANDANA PA, PRAVEEN K Ot I25.10 [facility] Ot E11.9 02/23[facility]2016 [facility] K Ot E78.2 02/23/2016 [facility] K Ot I10 02/23/2016 [facility] K Ot I25.10 02/27/2016 [facility] K Ot E11.9 02/27/2016 [facility] K Ot E78.2 02/27/2016 [facility] K Ot I10 02/27/2016 SANTANA-VANDANA PA, PRAVEEN K Ot I25.10 02/28/2016 SANTANA-VANDANA PA, PRAVEEN K Ot E11.9 02/28/2016 [facility] K Ot E78.2 02/28/2016 [facility] K Ot I10 02/28/2016 SANTANA-VANDANA PA, PRAVEEN K Ot I25.10 02/29/2016 GERSON BARKER, PHYLLIS Morales Ot I65.23 03/04/2016 SANTANABLANKA PA, PRAVEEN K Ot E11.9 TYPE 2 DIABETES MELLITUS WITHOUT COMPLIC 03/04/2016 BERNABE PA, PRAVEEN K Ot E78.2 MIXED HYPERLIPIDEMIA 03/04/2016 SANTANABLANKA PA, PRAVEEN K Ot I10 ESSENTIAL (PRIMARY) HYPERTENSION 03/04/2016 BERNABE PA, PRAVEEN K Ot I25.10 ATHSCL HEART DISEASE OF [place] CORONARY 03/07/2016 BERNABE PA, PRAVEEN K Ot E11.9 TYPE 2 DIABETES MELLITUS WITHOUT COMPLIC 03/07/2016 BERNABE PA, PRAVEEN K Ot E78.2 MIXED HYPERLIPIDEMIA 03/07/2016 BERNABE PA, PRAVEEN K Ot I10 ESSENTIAL (PRIMARY) HYPERTENSION 03/07/2016 PRAVEEN VILLAVICENCIO Ot I25.10 ATHSCL HEART DISEASE OF [place] CORONARY 03/15/2016 PRAVEEN VILLAVICENCIO Ot E11.9 TYPE 2 DIABETES MELLITUS WITHOUT COMPLIC 03/15/2016 PRAVEEN VILLAVICENCIO Ot E78.2 MIXED HYPERLIPIDEMIA 03/15/2016 PRAVEEN VILLAVICENCIO Ot I10 ESSENTIAL (PRIMARY) HYPERTENSION 03/15/2016 PRAVEEN VILLAVICENCIO Ot I25.10 ATHSCL HEART DISEASE OF [place] CORONARY 08/06/2017 Ot 397.0 TRICUSPID VALVE DISEASE [...] VILLAVICENCIO Ot I25.10 ATHSCL HEART DISEASE OF [place] CORONARY 09/04/2017 UDAY SALAZAR MD R Ot [...] MD, Ot I25.10 ATHSCL HEART DISEASE OF [place] CORONARY 09/18/2017 OLIVIA SORENSON MD, Ot K57.30 DVRTCLOS OF LG INT W/O PERFORATION OR AB 09/18/2017 OLIVIA SORENSON MD, Ot K64.1 SECOND DEGREE HEMORRHOIDS 09/18/2017 OLIVIA SORENSON MD, Ot Z12.11 ENCOUNTER FOR SCREENING FOR MALIGNANT NE 09/18/2017 OLIVIA SORENSON MD, Ot Z79.84 FIELD INVESTIGATOR (CURRENT) USE OF ORAL HYPOGLYC 09/18/2017 OLIVIA SORENSON MD, Ot Z79.899 OTHER FIELD INVESTIGATOR (CURRENT) DRUG THERAPY 09/18/2017 OLIVIA SORENSON MD, [...] MD, Ot I25.10 ATHSCL HEART DISEASE OF [place] CORONARY 09/20/2017 OLIVIA SORENSON MD, Ot K57.30 DVRTCLOS OF LG INT W/O PERFORATION OR AB 09/20/2017 OLIVIA SORENSON MD, Ot K64.1 SECOND DEGREE HEMORRHOIDS 09/20/2017 OLIVIA SORENSON MD, Ot Z12.11 ENCOUNTER FOR SCREENING FOR MALIGNANT NE 09/20/2017 OLIVIA SORENSON MD, Ot Z79.84 FIELD INVESTIGATOR (CURRENT) USE OF ORAL HYPOGLYC 09/20/2017 OLIVIA SORENSON MD, Ot Z79.899 OTHER FDC (CURRENT) DRUG THERAPY 09/20/2017 OLIVIA SORENSON MD, [...] DO, Ot I25.10 ATHSCL HEART DISEASE OF [place] CORONARY 10/11/2017 JOHN CRUZ DO Ot N81.10 CYSTOCELE, UNSPECIFIED 10/11/2017 NANCY JOHN RODRIGUEZ Ot N81.6 RECTOCELE 10/11/2017 NANCY JOHN RODRIGUEZ Ot R93.8 ABNORMAL FINDINGS ON DIAGNOSTIC IMAGING 10/11/2017 NANCY RODRIGUEZJOHN Ot Z78.0 ASYMPTOMATIC MENOPAUSAL STATE 10/11/2017 NANCY JOHN RODRIGUEZ Ot Z79.02 FIELD INVESTIGATOR (CURRENT) USE OF ANTITHROMBOTI 10/11/2017 ENZOJOHN GUEVARA DO Ot Z79.4 FIELD INVESTIGATOR (CURRENT) USE OF INSULIN 10/11/2017 NANCY JOHN RODRIGUEZ Ot Z79.899 OTHER FDC (CURRENT) DRUG THERAPY 10/11/2017 JOHN CRUZ DO [...] RODRIGUEZ Ot I25.10 ATHSCL HEART DISEASE OF [place] CORONARY 10/30/2017 ENZOISMAEL JOHN RODRIGUEZ Ot N81.10 CYSTOCELE, UNSPECIFIED 10/30/2017 ENZOJOHN GUEVARA DO Ot N81.6 RECTOCELE 10/30/2017 ENZOISMAEL JOHN RODRIGUEZ Ot R93.8 ABNORMAL FINDINGS ON DIAGNOSTIC IMAGING 10/30/2017 NANCY JOHN RODRIGUEZ Ot Z78.0 ASYMPTOMATIC MENOPAUSAL STATE 10/30/2017 JOHN CRUZ DO Ot Z79.02 FIELD INVESTIGATOR (CURRENT) USE OF ANTITHROMBOTI 10/30/2017 JOHN CRUZ DO Ot Z79.4 FIELD INVESTIGATOR (CURRENT) USE OF INSULIN 10/30/2017 JOHN CRUZ DO Ot Z79.899 OTHER FDC (CURRENT) DRUG THERAPY 10/30/2017 FENECH DO, JOHN [...] MD Ot I25.10 ATHSCL HEART DISEASE OF [place] CORONARY 02/21/2018 PHYLLIS NIETO MD Ot Z72.0 TOBACCO USE 02/25/2018 PHYLLIS NIETO MD Ot E11.9 TYPE 2 DIABETES MELLITUS WITHOUT COMPLIC 02/25/2018 PHYLLIS NIETO MD Ot E78.5 HYPERLIPIDEMIA, UNSPECIFIED 02/25/2018 PHYLLIS NIETO MD Ot I10 ESSENTIAL (PRIMARY) HYPERTENSION 02/25/2018 PHYLLIS NIETO MD Ot I25.10 ATHSCL HEART DISEASE OF [place] CORONARY 02/25/2018 PHYLLIS NIETO MD Ot Z72.0 TOBACCO USE 03/04/2018 PHYLLIS NIETO MD Ot E11.9 TYPE 2 DIABETES MELLITUS WITHOUT COMPLIC 03/04/2018 PHYLLIS NIETO MD Ot E78.5 HYPERLIPIDEMIA, UNSPECIFIED 03/04/2018 PHYLLIS NIETO MD Ot I10 ESSENTIAL (PRIMARY) HYPERTENSION 03/04/2018 PHYLLIS NIETO MD Ot I25.10 ATHSCL HEART DISEASE OF [place] CORONARY 03/04/2018 PHYLLIS NIETO MD Ot Z72.0 TOBACCO USE 03/05/2018 PHYLLIS NIETO MD Ot E11.9 TYPE 2 DIABETES MELLITUS WITHOUT COMPLIC 03/05/2018 PHYLLIS NIETO MD Ot E78.5 HYPERLIPIDEMIA, UNSPECIFIED 03/05/2018 PHYLLIS NIETO MD Ot F17.210 NICOTINE DEPENDENCE, CIGARETTES, UNCOMPL 03/05/2018 PHYLLIS NIETO MD Ot I10 ESSENTIAL (PRIMARY) HYPERTENSION 03/05/2018 PHYLLIS NIETO MD Ot I25.10 ATHSCL HEART DISEASE OF [place] CORONARY 03/05/2018 PHYLLIS NIETO MD Ot I65.23 [...] MD Ot I25.10 ATHSCL HEART DISEASE OF [place] CORONARY 03/06/2018 PHYLLIS NIETO MD Ot I65.23 [...] DO K Ot Y92.[address] IN [facility] NON-INSTITUT (PRIVATE 05/13/2018 PHYLLIS NIETO MD Ot E78.5 HYPERLIPIDEMIA, UNSPECIFIED 05/13/2018 PHYLLIS NIETO MD Ot 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AL AND T 05/13/2018 PHYLLIS NIETO MD Ot I10 ESSENTIAL (PRIMARY) HYPERTENSION 05/13/2018 PHYLLIS NIETO MD Ot I25.10 ATHSCL HEART DISEASE OF [place] CORONARY 05/13/2018 PHYLLIS NIETO MD Ot R07.9 CHEST PAIN, UNSPECIFIED 05/13/2018 PHYLLIS NIETO MD Ot Z72.0 TOBACCO USE 05/13/2018 PHYLLIS NIETO MD Ot E78.5 HYPERLIPIDEMIA, UNSPECIFIED 05/13/2018 PHYLLIS NIETO MD Ot 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[place]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 05/13/2018 PHYLLIS NIETO MD Ot I10 ESSENTIAL (PRIMARY) HYPERTENSION 05/13/2018 PHYLLIS NIETO MD Ot I25.10 ATHSCL HEART DISEASE OF [place] CORONARY 05/13/2018 PHYLLIS NIETO MD Ot R07.9 [...] MD Ot I25.10 ATHSCL HEART DISEASE OF [place] CORONARY 05/22/2018 PHYLLIS NIETO MD Ot R07.9 [...] N Ot I25.10 ATHSCL HEART DISEASE OF [place] CORONARY 06/02/2018 WILBERT BOBSHREYA N Ot I73.9 PERIPHERAL VASCULAR DISEASE, UNSPECIFIED 06/02/2018 WILBERTVIJAY N Ot R42 DIZZINESS AND GIDDINESS 06/02/2018 VIJAY ATKINS N Ot Z79.4 FDC (CURRENT) USE OF INSULIN 06/02/2018 VIJAY ATKINS N Ot Z79.899 OTHER FIELD INVESTIGATOR (CURRENT) DRUG THERAPY 06/02/2018 VIJAY ATKINS N [...] N Ot I25.10 ATHSCL HEART DISEASE OF [place] CORONARY 06/09/2018 WILBERTVIJAY N Ot I73.9 PERIPHERAL VASCULAR DISEASE, UNSPECIFIED 06/09/2018 VIJAY ATKINS N Ot R42 DIZZINESS AND GIDDINESS 06/09/2018 WILBERTVIJAY N Ot Z79.4 FDC (CURRENT) USE OF INSULIN 06/09/2018 VIJAY ATKINS N Ot Z79.899 OTHER FIELD INVESTIGATOR (CURRENT) DRUG THERAPY 06/09/2018 VIJAY ATKINS N Ot Z95.1 PRESENCE OF AORTOCORONARY BYPASS GRAFT 06/09/2018 VIJAY ATKINS N Ot Z95.820 PERIPHERAL VASCULAR ANGIOPLASTY STATUS W 07/04/2018 Ot E11.9 TYPE 2 DIABETES MELLITUS WITHOUT COMPLIC 07/04/2018 Ot E78.5 HYPERLIPIDEMIA, UNSPECIFIED 07/04/2018 Ot I10 ESSENTIAL (PRIMARY) HYPERTENSION 07/04/2018 Ot I25.10 ATHSCL HEART DISEASE OF [place] CORONARY 07/17/2018 WILBERTVIJAY PLASCENCIA N Ot D64.9 ANEMIA, UNSPECIFIED 07/17/2018 WILBERT, BOBSHREYA N Ot 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 AUTONOMIC (PO 07/17/2018 WILBERTVIJAY N Ot E78.5 HYPERLIPIDEMIA, UNSPECIFIED 07/17/2018 WILBERT, BOBAN N Ot F17.210 NICOTINE DEPENDENCE, CIGARETTES, UNCOMPL 07/17/2018 WILBERT, BOBAN N Ot I10 ESSENTIAL (PRIMARY) HYPERTENSION 07/17/2018 WILBERTROHINISHREYA N Ot I25.10 ATHSCL HEART DISEASE OF [place] CORONARY 07/17/2018 WILBERTVIJAY N Ot I73.9 PERIPHERAL VASCULAR DISEASE, UNSPECIFIED 07/17/2018 WILBERTVIJAY N Ot R42 DIZZINESS AND GIDDINESS 07/17/2018 WILBERT VIJAY N Ot Z79.4 FIELD INVESTIGATOR (CURRENT) USE OF INSULIN 07/17/2018 WILBERT VIJAY N Ot Z79.899 OTHER FIELD INVESTIGATOR (CURRENT) DRUG THERAPY 07/17/2018 WILBERT VIJAY N [...] N Ot I25.10 ATHSCL HEART DISEASE OF [place] CORONARY 07/18/2018 WILBERTVIJAY N Ot I73.9 PERIPHERAL VASCULAR DISEASE, UNSPECIFIED 07/18/2018 VIJAY ATKINS N Ot R42 DIZZINESS AND GIDDINESS 07/18/2018 VIJAY ATKINS N Ot Z79.4 FIELD INVESTIGATOR (CURRENT) USE OF INSULIN 07/18/2018 VIJAY ATKINS N Ot Z79.899 OTHER FDC (CURRENT) DRUG THERAPY 07/18/2018 VIJAY ATKINS N [...] N Ot I25.10 ATHSCL HEART DISEASE OF [place] CORONARY 07/18/2018 VIJAY ATKINS N Ot I73.9 PERIPHERAL VASCULAR DISEASE, UNSPECIFIED 07/18/2018 VIJAY ATKINS N Ot R42 DIZZINESS AND GIDDINESS 07/18/2018 WILBERT VIJAY N Ot Z79.4 FIELD INVESTIGATOR (CURRENT) USE OF INSULIN 07/18/2018 VIJAY ATKINS N Ot Z79.899 OTHER FDC (CURRENT) DRUG THERAPY 07/18/2018 VIJAY ATKINS N Ot Z95.1 PRESENCE OF AORTOCORONARY BYPASS GRAFT 07/18/2018 WILBERT VIJAY N Ot Z95.820 PERIPHERAL VASCULAR ANGIOPLASTY STATUS W 08/14/2018 Ot D50.0 IRON 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 08/14/2018 Ot E11.9 TYPE 2 DIABETES MELLITUS WITHOUT COMPLIC 08/14/2018 Ot E78.5 HYPERLIPIDEMIA, UNSPECIFIED 08/14/2018 Ot I10 ESSENTIAL (PRIMARY) HYPERTENSION 08/14/2018 Ot I25.10 ATHSCL HEART DISEASE OF [place] CORONARY 08/19/2018 WILBERT VIJAY N Ot D64.9 ANEMIA, UNSPECIFIED 08/19/2018 WILBERT ROHINISHREYA N Ot 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 AUTONOMIC (PO 08/19/2018 VIJAY ATKINS Ot E78.5 HYPERLIPIDEMIA, UNSPECIFIED 08/19/2018 VIJAY ATKINS Ot F17.210 NICOTINE DEPENDENCE, CIGARETTES, UNCOMPL 08/19/2018 VIJAY ATKINS Ot I10 ESSENTIAL (PRIMARY) HYPERTENSION 08/19/2018 VIJAY ATKINS Ot I25.10 ATHSCL HEART DISEASE OF [place] CORONARY 08/19/2018 VIJAY ATKINS Ot I73.9 PERIPHERAL VASCULAR DISEASE, UNSPECIFIED 08/19/2018 VIJAY ATKINS Ot R42 DIZZINESS AND GIDDINESS 08/19/2018 VIJAY ATKINS Ot Z79.4 FDC (CURRENT) USE OF INSULIN 08/19/2018 VIJAY ATKINS Ot Z79.899 OTHER FDC (CURRENT) DRUG THERAPY 08/19/2018 VIJAY ATKINS Ot [...] 08/20/2018 Ot I25.10 ATHSCL HEART DISEASE OF [place] CORONARY 08/28/2018 Ot D50.0 IRON DEFICIENCY ANEMIA [...] MD Ot I25.10 ATHSCL HEART DISEASE OF [place] CORONARY 09/29/2018 PHYLLIS NIETO MD Ot Z72.0 TOBACCO USE 09/29/2018 ALAN ROD MD Ot I25.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 09/29/2018 VIOLA BARKER, ALAN Ot J90 PLEURAL EFFUSION, NOT ELSEWHERE CLASSIFI 09/29/2018 PHYLLIS NIETO MD Ot E78.5 HYPERLIPIDEMIA, UNSPECIFIED 09/29/2018 PHYLLIS NIETO MD Ot 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AL AND T 09/29/2018 PHYLLIS NIETO MD Ot I10 ESSENTIAL (PRIMARY) HYPERTENSION 09/29/2018 PHYLILS NIETO MD Ot I25.10 ATHSCL HEART DISEASE OF [place] CORONARY 09/29/2018 PHYLLIS NIETO MD Ot R07.9 CHEST PAIN, UNSPECIFIED 09/29/2018 PHYLLIS NIETO MD Ot Z72.0 TOBACCO USE 09/29/2018 PHYLLIS NIETO MD Ot D64.9 ANEMIA, UNSPECIFIED 09/29/2018 Ot D50.0 IRON 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 09/29/2018 Ot E11.9 TYPE 2 DIABETES MELLITUS WITHOUT COMPLIC 09/29/2018 Ot E78.5 HYPERLIPIDEMIA, UNSPECIFIED 09/29/2018 Ot I10 ESSENTIAL (PRIMARY) HYPERTENSION 09/29/2018 Ot I25.10 ATHSCL HEART DISEASE OF [place] CORONARY 09/29/2018 VIJAY ATKINS Ot D64.9 ANEMIA, UNSPECIFIED 09/29/2018 VIJAY ATKINS Ot 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 AUTONOMIC (PO 09/29/2018 VIJAY ATKINS Ot E78.5 HYPERLIPIDEMIA, UNSPECIFIED 09/29/2018 VIJAY ATKINS Ot F17.210 NICOTINE DEPENDENCE, CIGARETTES, UNCOMPL 09/29/2018 VIJAY ATKINS Ot I10 ESSENTIAL (PRIMARY) HYPERTENSION 09/29/2018 VIJAY ATKINS Ot I25.10 ATHSCL HEART DISEASE OF [place] CORONARY 09/29/2018 VIJAY ATKINS Ot I73.9 PERIPHERAL VASCULAR DISEASE, UNSPECIFIED 09/29/2018 VIJAY ATKINS Ot R42 DIZZINESS AND GIDDINESS 09/29/2018 VIJAY ATKINS Ot Z79.4 FDC (CURRENT) USE OF INSULIN 09/29/2018 VIJAY ATKINS Ot Z79.899 OTHER FIELD INVESTIGATOR (CURRENT) DRUG THERAPY 09/29/2018 WILBERT, BOBAN N [...] MD Ot I25.10 ATHSCL HEART DISEASE OF [place] CORONARY 10/19/2018 KIRSTEN GAFFNEY MD Ot I25.2 [...] HOUSE 10/19/2018 KIRSTEN GAFFNEY MD Ot Z79.4 FDC (CURRENT) USE OF INSULIN 10/19/2018 KIRSTEN GAFFNEY MD Ot Z79.82 FIELD INVESTIGATOR (CURRENT) USE OF ASPIRIN 10/19/2018 KIRSTEN GAFFNEY [...] MD, Ot I25.10 ATHSCL HEART DISEASE OF [place] CORONARY 10/31/2018 OLIVIA SORENSON MD, Ot K21.0 GASTRO-ESOPHAGEAL REFLUX DISEASE WITH ES 10/31/2018 OLIVIA SORENSON MD, Ot K29.70 GASTRITIS, UNSPECIFIED, WITHOUT BLEEDING 10/31/2018 OLIVIA SORENSON MD, Ot K44.9 DIAPHRAGMATIC HERNIA WITHOUT OBSTRUCTION 10/31/2018 OLIVIA SORENSON MD, Ot Z79.4 FDC (CURRENT) USE OF INSULIN 10/31/2018 OLIVIA SORENSON MD, Ot Z79.82 FDC (CURRENT) USE OF ASPIRIN 10/31/2018 OLIVIA SORENSON MD, Ot Z79.899 OTHER FIELD INVESTIGATOR (CURRENT) DRUG THERAPY 10/31/2018 OLIVIA SORENSON MD, [...] ATKINS Ot I25.10 ATHSCL HEART DISEASE OF [place] CORONARY 10/31/2018 VIJAY ATKINS Ot I73.9 PERIPHERAL VASCULAR DISEASE, UNSPECIFIED 10/31/2018 VIJAY ATKINS Ot R42 DIZZINESS AND GIDDINESS 10/31/2018 VIJAY ATKINS Ot Z79.4 FDC (CURRENT) USE OF INSULIN 10/31/2018 VIJAY ATKINS Ot Z79.899 OTHER FIELD INVESTIGATOR (CURRENT) DRUG THERAPY 10/31/2018 VIJAY ATKINS Ot [...] MD, Ot I25.10 ATHSCL HEART DISEASE OF [place] CORONARY 11/04/2018 OLIVIA SORENSON MD, Ot K21.0 GASTRO-ESOPHAGEAL REFLUX DISEASE WITH ES 11/04/2018 OLIVIA SORENSON MD, Ot K29.70 GASTRITIS, UNSPECIFIED, WITHOUT BLEEDING 11/04/2018 OLIVIA SORENSON MD, Ot K44.9 DIAPHRAGMATIC HERNIA WITHOUT OBSTRUCTION 11/04/2018 OLIVIA SORENSON MD, Ot Z79.4 FIELD INVESTIGATOR (CURRENT) USE OF INSULIN 11/04/2018 OLIVIA SORENSON MD, Ot Z79.82 FDC (CURRENT) USE OF ASPIRIN 11/04/2018 OLIVIA SORENSON MD, Ot Z79.899 OTHER FIELD INVESTIGATOR (CURRENT) DRUG THERAPY 11/04/2018 OLIVIA SORENSON MD, [...] MD, Ot I25.10 ATHSCL HEART DISEASE OF [place] CORONARY 11/04/2018 OLIVIA SORENSON MD, Ot K21.0 GASTRO-ESOPHAGEAL REFLUX DISEASE WITH ES 11/04/2018 OLIVIA SORENSON MD, Ot K29.70 GASTRITIS, UNSPECIFIED, WITHOUT BLEEDING 11/04/2018 OLIVIA SORENSON MD, Ot K44.9 DIAPHRAGMATIC HERNIA WITHOUT OBSTRUCTION 11/04/2018 OLIVIA SORENSON MD, Ot Z79.4 FIELD INVESTIGATOR (CURRENT) USE OF INSULIN 11/04/2018 KIDO MD, TAKAAKI Ot Z79.82 FIELD INVESTIGATOR (CURRENT) USE OF ASPIRIN 11/04/2018 OLIVIA SORENSON MD Ot Z79.899 OTHER FDC (CURRENT) DRUG THERAPY 11/04/2018 OLIVIA SORENSON MD, [...] MD, Ot I25.10 ATHSCL HEART DISEASE OF [place] CORONARY 11/05/2018 OLIVIA SORENSON MD Ot K21.0 GASTRO-ESOPHAGEAL REFLUX DISEASE WITH ES 11/05/2018 OLIVIA SORENSON MD Ot K29.70 GASTRITIS, UNSPECIFIED, WITHOUT BLEEDING 11/05/2018 OLIVIA SORENSON MD Ot K44.9 DIAPHRAGMATIC HERNIA WITHOUT OBSTRUCTION 11/05/2018 OLIVIA SORENSON MD, Ot Z79.4 FIELD INVESTIGATOR (CURRENT) USE OF INSULIN 11/05/2018 OLIVIA SORENSON MD, Ot Z79.82 FDC (CURRENT) USE OF ASPIRIN 11/05/2018 OLIVIA SORENSON MD, Ot Z79.899 OTHER FIELD INVESTIGATOR (CURRENT) DRUG THERAPY 11/05/2018 OLIVIA SORENSON MD, [...] VILLAVICENCIO Ot I25.10 ATHSCL HEART DISEASE OF [place] CORONARY 11/12/2018 MARTIN BARKER, UDAY R Ot [...] ATKINS Ot I25.10 ATHSCL HEART DISEASE OF [place] CORONARY 11/12/2018 VIJAY ATKINS Ot I73.9 PERIPHERAL VASCULAR DISEASE, UNSPECIFIED 11/12/2018 VIJAY ATKINS Ot R42 DIZZINESS AND GIDDINESS 11/12/2018 VIJAY ATKINS Ot Z79.4 FDC (CURRENT) USE OF INSULIN 11/12/2018 VIJAY ATKINS Ot Z79.899 OTHER FIELD INVESTIGATOR (CURRENT) DRUG THERAPY 11/12/2018 VIJAY ATKINS Ot [...] N Ot I25.10 ATHSCL HEART DISEASE OF [place] CORONARY 11/12/2018 WILBERT BOBSHREYA N Ot I73.9 PERIPHERAL VASCULAR DISEASE, UNSPECIFIED 11/12/2018 WILBERT BOBAN N Ot R42 DIZZINESS AND GIDDINESS 11/12/2018 WILBERTVIJAY N Ot Z79.4 FDC (CURRENT) USE OF INSULIN 11/12/2018 WILBERT, BOBAN N Ot Z79.899 OTHER FDC (CURRENT) DRUG THERAPY 11/12/2018 WILBERT, BOBAN N [...] N Ot I25.10 ATHSCL HEART DISEASE OF [place] CORONARY 11/20/2018 WILBERTVIJAY N Ot I73.9 PERIPHERAL VASCULAR DISEASE, UNSPECIFIED 11/20/2018 WILBERTVIJAY N Ot R42 DIZZINESS AND GIDDINESS 11/20/2018 WILBERTVIJAY N Ot Z79.4 FIELD INVESTIGATOR (CURRENT) USE OF INSULIN 11/20/2018 WILBERTVIJAY N Ot Z79.899 OTHER FDC (CURRENT) DRUG THERAPY 11/20/2018 WILBERTVIJAY N Ot [...] N Ot I25.10 ATHSCL HEART DISEASE OF [place] CORONARY 02/06/2019 VIJAY ATKINS Ot I73.9 PERIPHERAL VASCULAR DISEASE, UNSPECIFIED 02/06/2019 VIJAY ATKINS Ot R42 DIZZINESS AND GIDDINESS 02/06/2019 VIJAY ATKINS Ot Z79.4 FIELD INVESTIGATOR (CURRENT) USE OF INSULIN 02/06/2019 VIJAY ATKINS Ot Z79.899 OTHER FIELD INVESTIGATOR (CURRENT) DRUG THERAPY 02/06/2019 VIJAY ATKINS Ot [...] N Ot I25.10 ATHSCL HEART DISEASE OF [place] CORONARY 02/18/2019 VIJAY ATKINS Ot I73.9 PERIPHERAL VASCULAR DISEASE, UNSPECIFIED 02/18/2019 VIJAY ATKINS Ot R42 DIZZINESS AND GIDDINESS 02/18/2019 VIJAY ATKINS Ot Z79.4 FDC (CURRENT) USE OF INSULIN 02/18/2019 VIJAY ATKINS Ot Z79.899 OTHER FIELD INVESTIGATOR (CURRENT) DRUG THERAPY 02/18/2019 VIJAY ATKINS Ot Z95.1 PRESENCE OF AORTOCORONARY BYPASS GRAFT 02/18/2019 VIJAY ATKINS Ot Z95.820 PERIPHERAL VASCULAR ANGIOPLASTY STATUS W 02/19/2019 PRAVEEN VILLAVICENCIO Ot E78.5 HYPERLIPIDEMIA, UNSPECIFIED 02/19/2019 PRAVEEN VILLAVICENCIO Ot I07.1 RHEUMATIC TRICUSPID INSUFFICIENCY 02/19/2019 PRAVEEN VILLAVICENCIO Ot I10 ESSENTIAL (PRIMARY) HYPERTENSION 02/19/2019 PRAVEEN VILLAVICENCIO Ot I25.10 ATHSCL HEART DISEASE OF [place] CORONARY 02/19/2019 PRAVEEN VILLAVICENCIO Ot R07.9 CHEST PAIN, UNSPECIFIED 02/19/2019 VIJAY ATKINS Ot D64.9 ANEMIA, UNSPECIFIED 02/19/2019 VIJAY ATKINS Ot 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 AUTONOMIC (PO 02/19/2019 VIJAY ATKINS Ot E78.5 HYPERLIPIDEMIA, UNSPECIFIED 02/19/2019 VIJAY ATKINS Ot F17.210 NICOTINE DEPENDENCE, CIGARETTES, UNCOMPL 02/19/2019 VIJAY ATKINS Ot I10 ESSENTIAL (PRIMARY) HYPERTENSION 02/19/2019 VIJAY ATKINS Ot I25.10 ATHSCL HEART DISEASE OF [place] CORONARY 02/19/2019 VIJAY ATKINS Ot I73.9 PERIPHERAL VASCULAR DISEASE, UNSPECIFIED 02/19/2019 VIJAY ATKINS Ot R42 DIZZINESS AND GIDDINESS 02/19/2019 VIJAY ATKINS Ot Z79.4 FDC (CURRENT) USE OF INSULIN 02/19/2019 VIJAY ATKINS Ot Z79.899 OTHER FIELD INVESTIGATOR (CURRENT) DRUG THERAPY 02/19/2019 VIJAY ATKINS Ot Z95.1 PRESENCE OF AORTOCORONARY BYPASS GRAFT 02/19/2019 VIJAY ATKINS Derrick Ot Z95.820 PERIPHERAL VASCULAR ANGIOPLASTY STATUS W 02/24/2019 PRAVEEN VILLAVICENCIO Ot E78.5 HYPERLIPIDEMIA, UNSPECIFIED 02/24/2019 PRAVEEN VILLAVICENCIO Ot I07.1 RHEUMATIC TRICUSPID INSUFFICIENCY 02/24/2019 PRAVEEN VILLAVICENCIO Ot I10 ESSENTIAL (PRIMARY) HYPERTENSION 02/24/2019 PRAVEEN VILLAVICENCIO Ot I25.10 ATHSCL HEART DISEASE OF [place] CORONARY 02/24/2019 PRAVEEN VILLAVICENCIO Ot R07.9 CHEST PAIN, UNSPECIFIED 02/26/2019 PRAVEEN VILLAVICENCIO Ot E78.5 HYPERLIPIDEMIA, UNSPECIFIED 02/26/2019 PRAVEEN VILLAVICENCIO Ot I10 ESSENTIAL (PRIMARY) HYPERTENSION 02/26/2019 PRAVEEN VILLAVICENCIO Ot I25.10 ATHSCL HEART DISEASE OF [place] CORONARY 02/26/2019 PRAVEEN VILLAVICENCIO Ot R07.9 CHEST PAIN, UNSPECIFIED 02/27/2019 PHYLLIS NIETO MD Ot D50.9 IRON DEFICIENCY ANEMIA, UNSPECIFIED 02/27/2019 PHYLLIS NIETO MD Ot E11.51 TYPE 2 DIABETES W DIABETIC PERIPHERAL AN 02/27/2019 PHYLLIS NIETO MD Ot E78.5 HYPERLIPIDEMIA, UNSPECIFIED 02/27/2019 PHYLLIS NIETO MD Ot I10 ESSENTIAL (PRIMARY) HYPERTENSION 02/27/2019 PHYLLIS NIETO MD Ot I25.10 ATHSCL HEART DISEASE OF [place] CORONARY 02/27/2019 PHYLLIS NIETO MD Ot I25.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 02/27/2019 PHYLLIS NIETO MD Ot 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 MITRAL (VALVE) INSUFFICIENC 02/27/2019 PHYLLIS NIETO MD Ot I65.23 OCCLUSION AND STENOSIS OF BILATERAL PAINTER 02/27/2019 PHYLLIS NIETO MD Ot I70.1 ATHEROSCLEROSIS OF RENAL ARTERY 02/27/2019 PHYLLIS NIETO MD Ot R82.90 UNSPECIFIED ABNORMAL FINDINGS IN URINE 02/27/2019 PHYLLIS NIETO MD Ot Z79.4 FDC (CURRENT) USE OF INSULIN 02/27/2019 PHYLLIS NIETO MD Ot Z79.899 OTHER FIELD INVESTIGATOR (CURRENT) DRUG THERAPY 02/27/2019 PHYLLIS NIETO MD, [...] MD Ot I25.10 ATHSCL HEART DISEASE OF [place] CORONARY 03/03/2019 PHYLLIS NIETO MD Ot I25.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 03/03/2019 PHYLLIS NIETO MD Ot 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 MITRAL (VALVE) INSUFFICIENC 03/03/2019 PHYLLIS NIETO MD Ot I65.23 OCCLUSION AND STENOSIS OF BILATERAL PA[place] 03/03/2019 PHYLLIS NIETO MD Ot I70.1 ATHEROSCLEROSIS OF RENAL ARTERY 03/03/2019 PHYLLIS NIETO MD Ot R82.90 UNSPECIFIED ABNORMAL FINDINGS IN URINE 03/03/2019 PHYLLIS NIETO MD Ot Z79.4 FIELD INVESTIGATOR (CURRENT) USE OF INSULIN 03/03/2019 PHYLLIS NIETO MD, Ot Z79.899 OTHER FIELD INVESTIGATOR (CURRENT) DRUG THERAPY 03/03/2019 PHYLLIS NIETO MD [...] WILBERTVIJAY Ot I25.10 ATHSCL HEART DISEASE OF [place] CORONARY 03/10/2019 VIJAY ATKINS Ot I73.9 PERIPHERAL VASCULAR DISEASE, UNSPECIFIED 03/10/2019 WILBERTVIJAY Ot R42 DIZZINESS AND GIDDINESS 03/10/2019 VIJAY ATKINS Ot Z79.4 FIELD INVESTIGATOR (CURRENT) USE OF INSULIN 03/10/2019 VIJAY ATKINS Ot Z79.899 OTHER FDC (CURRENT) DRUG THERAPY 03/10/2019 VIJAY ATKINS Ot Z95.1 PRESENCE OF AORTOCORONARY BYPASS GRAFT 03/10/2019 VIJAY ATKNIS Ot Z95.820 PERIPHERAL VASCULAR ANGIOPLASTY STATUS W 03/16/2019 PRAVEEN VILLAVICENCIO Ot E78.5 HYPERLIPIDEMIA, UNSPECIFIED 03/16/2019 PRAVEEN VILLAVICENCIO Ot I07.1 RHEUMATIC TRICUSPID INSUFFICIENCY 03/16/2019 PRAVEEN VILLAVICENCIO Ot I10 ESSENTIAL (PRIMARY) HYPERTENSION 03/16/2019 PRAVEEN VILLAVICENCIO Ot I25.10 ATHSCL HEART DISEASE OF [place] CORONARY 03/16/2019 PRAVEEN VILLAVICENCIO Ot R07.9 CHEST PAIN, UNSPECIFIED 03/17/2019 PRAVEEN VILLAVICENCIO Ot E78.5 HYPERLIPIDEMIA, UNSPECIFIED 03/17/2019 PRAVEEN VILLAVICENCIO Ot I10 ESSENTIAL (PRIMARY) HYPERTENSION 03/17/2019 PRAVEEN VILLAVICENCIO Ot I25.10 ATHSCL HEART DISEASE OF [place] CORONARY 03/17/2019 PRAVEEN VILLAVICENCIO Ot R07.9 CHEST PAIN, UNSPECIFIED 04/09/2019 VIJAY ATKINS Ot D64.9 ANEMIA, UNSPECIFIED 04/09/2019 VIJAY ATKINS Ot 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 AUTONOMIC (PO 04/09/2019 VIJAY ATKINS Derrick Ot E78.5 HYPERLIPIDEMIA, UNSPECIFIED 04/09/2019 VIJAY ATKINS Derrick Ot F17.210 NICOTINE DEPENDENCE, CIGARETTES, UNCOMPL 04/09/2019 WILBERT ROHINISHREYA Derrick Ot I10 ESSENTIAL (PRIMARY) HYPERTENSION 04/09/2019 VIJAY ATKINS Derrick Ot I25.10 ATHSCL HEART DISEASE OF [place] CORONARY 04/09/2019 VIJAY ATKINS Derrick Ot I73.9 PERIPHERAL VASCULAR DISEASE, UNSPECIFIED 04/09/2019 WILBERT ROHINISHREYA Derrick Ot R42 DIZZINESS AND GIDDINESS 04/09/2019 VIJAY ATKINS Derrick Ot Z79.4 FIELD INVESTIGATOR (CURRENT) USE OF INSULIN 04/09/2019 WILBERT VIJAY Meza Ot Z79.899 OTHER FDC (CURRENT) DRUG THERAPY 04/09/2019 WILBERT VIJAY Meza Ot Z95.1 PRESENCE OF AORTOCORONARY BYPASS GRAFT 04/09/2019 WILBERT ROHINISHREYA Derrick Ot Z95.820 PERIPHERAL VASCULAR ANGIOPLASTY STATUS W 04/19/2019 VIJAY ATKINS Derrick Ot K29.70 GASTRITIS, UNSPECIFIED, WITHOUT BLEEDING 04/19/2019 VIJAY ATKINS Derrick Ot K92.2 GASTROINTESTINAL HEMORRHAGE, UNSPECIFIED 04/19/2019 VIJAY ATKINS Derrick Ot R16.2 HEPATOMEGALY WITH SPLENOMEGALY, NOT ELSE 04/29/2019 OLIVIA SORENSON MD Ot E11.40 TYPE 2 DIABETES MELLITUS WITH DIABETIC N 04/29/2019 OLIVIA SORENSON MD, Ot E78.00 PURE HYPERCHOLESTEROLEMIA, UNSPECIFIED 04/29/2019 OLIVIA SORENSON MD Ot F32.9 MAJOR DEPRESSIVE DISORDER, SINGLE EPISOD 04/29/2019 OLIVIA SORENSON MD, Ot F41.9 ANXIETY DISORDER, UNSPECIFIED 04/29/2019 OLIVIA SORENSON MD Ot I25.10 ATHSCL HEART DISEASE OF [place] CORONARY 04/29/2019 OLIVIA SORENSON MD Ot K21.0 GASTRO-ESOPHAGEAL REFLUX DISEASE WITH ES 04/29/2019 OLIVIA SORENSON MD Ot K25.9 GASTRIC ULCER, UNSP ACUTE OR CHRONIC, 04/29/2019 OLIVIA SORENSON MD, Ot K29.70 GASTRITIS, UNSPECIFIED, WITHOUT BLEEDING 04/29/2019 OLIVIA SORENSON MD, Ot K31.89 OTHER DISEASES OF STOMACH AND DUODENUM 04/29/2019 OLIVIA SORENSON MD, Ot K44.9 DIAPHRAGMATIC HERNIA WITHOUT OBSTRUCTION 04/29/2019 OLIVIA SORENSON MD, Ot Z79.4 FDC (CURRENT) USE OF INSULIN 04/29/2019 OLIVIA SORENSON MD, Ot Z79.899 OTHER FDC (CURRENT) DRUG THERAPY 04/29/2019 OLIVIA SORENSON MD, Ot Z80.0 FAMILY HISTORY OF MALIGNANT NEOPLASM OF 04/29/2019 OLIVIA SORENSON MD, Ot Z80.3 FAMILY HISTORY OF MALIGNANT NEOPLASM OF 04/29/2019 OLIVIA SORENSON MD, Ot Z80.41 FAMILY HISTORY OF MALIGNANT NEOPLASM OF 04/29/2019 OLIVIA SORENSON MD, Ot Z80.49 FAMILY HISTORY OF MALIGNANT NEOPLASM OF 04/29/2019 OLIVIA SORENSON MD, Ot Z86.010 PERSONAL HISTORY OF COLONIC POLYPS 04/29/2019 OLIVIA SORENSON MD, Ot Z87.11 PERSONAL HISTORY OF PEPTIC ULCER DISEASE 04/29/2019 OLIVIA SORENSON MD, Ot Z87.891 PERSONAL HISTORY OF NICOTINE DEPENDENCE 04/29/2019 OLIVIA SORENSON MD, Ot Z91.040 LATEX ALLERGY STATUS 04/29/2019 OLIVIA SORENSON MD, Ot Z95.1 PRESENCE OF AORTOCORONARY BYPASS GRAFT 04/29/2019 OLIVIA SORENSON MD, Ot Z95.5 PRESENCE OF CORONARY ANGIOPLASTY IMPLANT 04/29/2019 OLIVIA SORENSON MD, Ot Z01.818 ENCOUNTER FOR OTHER PREPROCEDURAL EXAMIN 05/06/2019 OLIVIA SORENSON MD Ot E11.40 TYPE 2 DIABETES MELLITUS WITH DIABETIC N 05/06/2019 OLIVIA SORENSON MD Ot E78.00 PURE HYPERCHOLESTEROLEMIA, UNSPECIFIED 05/06/2019 OLIVIA SORENSON MD, Ot F32.9 MAJOR DEPRESSIVE DISORDER, SINGLE EPISOD 05/06/2019 OLIVIA SORENSON MD, Ot F41.9 ANXIETY DISORDER, UNSPECIFIED 05/06/2019 OLIVIA SORENSON MD, Ot I25.10 ATHSCL HEART DISEASE OF [place] CORONARY 05/06/2019 OLIVIA SORENSON MD Ot K21.0 GASTRO-ESOPHAGEAL REFLUX DISEASE WITH ES 05/06/2019 OLIVIA SORENSON MD, Ot K25.9 GASTRIC ULCER, UNSP ACUTE OR CHRONIC, 05/06/2019 OLIVIA SORENSON MD, Ot K29.70 GASTRITIS, UNSPECIFIED, WITHOUT BLEEDING 05/06/2019 OLIVIA SORENSON MD, Ot K31.89 OTHER DISEASES OF STOMACH AND DUODENUM 05/06/2019 OLIVIA SORENSON MD, Ot K44.9 DIAPHRAGMATIC HERNIA WITHOUT OBSTRUCTION 05/06/2019 OLIVIA SORENSON MD, Ot Z79.4 FDC (CURRENT) USE OF INSULIN 05/06/2019 OLIVIA SORENSON MD, Ot Z79.899 OTHER FDC (CURRENT) DRUG THERAPY 05/06/2019 OLIVIA SORENSON MD, Ot Z80.0 FAMILY HISTORY OF MALIGNANT NEOPLASM OF 05/06/2019 OLIVIA SORENSON MD, Ot Z80.3 FAMILY HISTORY OF MALIGNANT NEOPLASM OF 05/06/2019 OLIVIA SORENSON MD, Ot Z80.41 FAMILY HISTORY OF MALIGNANT NEOPLASM OF 05/06/2019 OLIVIA SORENSON MD, Ot Z80.49 FAMILY HISTORY OF MALIGNANT NEOPLASM OF 05/06/2019 OLIVIA SORENSON MD, Ot Z86.010 PERSONAL HISTORY OF COLONIC POLYPS 05/06/2019 OLIVIA SORENSON MD, Ot Z87.11 PERSONAL HISTORY OF PEPTIC ULCER DISEASE 05/06/2019 OLIVIA SORENSON MD, Ot Z87.891 PERSONAL HISTORY OF NICOTINE DEPENDENCE 05/06/2019 OLIVIA SORENSON MD, Ot Z91.040 LATEX ALLERGY STATUS 05/06/2019 OLIVIA SORENSON MD, Ot Z95.1 PRESENCE OF AORTOCORONARY BYPASS GRAFT 05/06/2019 OLIVIA SORENSON MD Ot Z95.5 PRESENCE OF CORONARY ANGIOPLASTY IMPLANT 05/07/2019 VIJAY ATKINS Ot K29.70 GASTRITIS, UNSPECIFIED, WITHOUT BLEEDING 05/07/2019 VIJAY ATKINS Ot K92.2 GASTROINTESTINAL HEMORRHAGE, UNSPECIFIED 05/07/2019 VIJAY ATKINS Ot R16.2 HEPATOMEGALY WITH SPLENOMEGALY, NOT ELSE 05/16/2019 OLIVIA SORENSON MD, Ot N28.1 CYST OF KIDNEY, ACQUIRED 05/16/2019 OLIVIA SORENSON MD Ot R16.0 HEPATOMEGALY, NOT ELSEWHERE CLASSIFIED 05/19/2019 GUADALUPE KELLER COOK HELPER PRESERVES Ot E11.9 TYPE 2 DIABETES MELLITUS WITHOUT COMPLIC 05/21/2019 GUADALUPE KELLER COOK HELPER PRESERVES Ot E11.9 TYPE 2 DIABETES MELLITUS WITHOUT COMPLIC 05/22/2019 YAS BARKER, OLIVIA Ot N28.1 CYST OF KIDNEY, ACQUIRED 05/22/2019 YAS BARKER, OLIVIA Ot R16.0 HEPATOMEGALY, NOT ELSEWHERE CLASSIFIED 05/26/2019 WILBERTVIJAY Ot K29.70 GASTRITIS, UNSPECIFIED, WITHOUT BLEEDING 05/26/2019 WILBERTVIJAY Ot K92.2 GASTROINTESTINAL HEMORRHAGE, UNSPECIFIED 05/26/2019 WILBERTVIJAY Ot R16.2 HEPATOMEGALY WITH SPLENOMEGALY, NOT ELSE 06/05/2019 GUADALUPE KELLER COOK HELPER PRESERVES Ot E11.9 TYPE 2 DIABETES MELLITUS WITHOUT COMPLIC 06/07/2019 VIJAY ATKINS Ot D64.9 ANEMIA, UNSPECIFIED 06/07/2019 VIJAY ATKINS N Ot 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 AUTONOMIC (PO 06/07/2019 VIJAY ATKINS Ot E78.5 HYPERLIPIDEMIA, UNSPECIFIED 06/07/2019 VIJAY ATKINS N Ot F17.210 NICOTINE DEPENDENCE, CIGARETTES, UNCOMPL 06/07/2019 VIJAY ATKINS N Ot I10 ESSENTIAL (PRIMARY) HYPERTENSION 06/07/2019 VIJAY ATKINS N Ot I25.10 ATHSCL HEART DISEASE OF [place] CORONARY 06/07/2019 VIJAY ATKINS Ot I73.9 PERIPHERAL VASCULAR DISEASE, UNSPECIFIED 06/07/2019 VIJAY ATKINS N Ot R42 DIZZINESS AND GIDDINESS 06/07/2019 VIJAY ATKINS N Ot Z79.4 FIELD INVESTIGATOR (CURRENT) USE OF INSULIN 06/07/2019 VIJAY ATKINS Ot Z79.899 OTHER FIELD INVESTIGATOR (CURRENT) DRUG THERAPY 06/07/2019 VIJAY ATKINS N Ot Z95.1 PRESENCE OF AORTOCORONARY BYPASS GRAFT 06/07/2019 VIJAY ATKINS N Ot Z95.820 PERIPHERAL VASCULAR ANGIOPLASTY STATUS W 06/08/2019 PHYLLIS NIETO MD Ot Z48.812 ENCNTR FOR SURGICAL AFTCR FOLLOWING SURG 06/08/2019 PHYLLIS NIETO MD Ot Z95.1 PRESENCE OF AORTOCORONARY BYPASS GRAFT 06/08/2019 VIJAY ATKINS N Ot D64.9 ANEMIA, UNSPECIFIED 06/08/2019 VIJAY ATKINS N Ot 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 AUTONOMIC (PO 06/08/2019 WILBERT, VIJAY N Ot E78.5 HYPERLIPIDEMIA, UNSPECIFIED 06/08/2019 WILBERTVIJAY N Ot F17.210 NICOTINE DEPENDENCE, CIGARETTES, UNCOMPL 06/08/2019 WILBERTVIJAY N Ot I10 ESSENTIAL (PRIMARY) HYPERTENSION 06/08/2019 VIJAY ATKINS N Ot I25.10 ATHSCL HEART DISEASE OF [place] CORONARY 06/08/2019 WILBERTVIJAY PLASCENCIA Ot I73.9 PERIPHERAL VASCULAR DISEASE, UNSPECIFIED 06/08/2019 WILBERTVIJAY N Ot R42 DIZZINESS AND GIDDINESS 06/08/2019 VIJAY ATKINS N Ot Z79.4 FDC (CURRENT) USE OF INSULIN 06/08/2019 VIJAY ATKINS N Ot Z79.899 OTHER FDC (CURRENT) DRUG THERAPY 06/08/2019 VIJAY ATKINS N Ot Z95.1 PRESENCE OF AORTOCORONARY BYPASS GRAFT 06/08/2019 VIJAY ATKINS N Ot Z95.820 PERIPHERAL VASCULAR ANGIOPLASTY STATUS W 06/08/2019 YAS BARKER, OLIVIA Ot Z01.818 ENCOUNTER FOR OTHER PREPROCEDURAL EXAMIN 06/08/2019 VIJAY ATKINS Ot D64.9 ANEMIA, UNSPECIFIED 06/08/2019 WILBERTVIJAY PLASCENCIA N Ot 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 AUTONOMIC (PO 06/08/2019 WILBERTVIJAY PLASCENCIA N Ot E78.5 HYPERLIPIDEMIA, UNSPECIFIED 06/08/2019 WILBERTVIJAY PLASCENCIA N Ot F17.210 NICOTINE DEPENDENCE, CIGARETTES, UNCOMPL 06/08/2019 VIJAY ATKINS N Ot I10 ESSENTIAL (PRIMARY) HYPERTENSION 06/08/2019 VIJAY ATKINS N Ot I25.10 ATHSCL HEART DISEASE OF [place] CORONARY 06/08/2019 VIJAY ATKINS N Ot I73.9 PERIPHERAL VASCULAR DISEASE, UNSPECIFIED 06/08/2019 VIJAY ATKINS N Ot R42 DIZZINESS AND GIDDINESS 06/08/2019 VIJAY ATKINS N Ot Z79.4 FDC (CURRENT) USE OF INSULIN 06/08/2019 VIJAY ATKINS N Ot Z79.899 OTHER FDC (CURRENT) DRUG THERAPY 06/08/2019 VIJAY ATKINS N Ot Z95.1 PRESENCE OF AORTOCORONARY BYPASS GRAFT 06/08/2019 WILBERTVIJAY PLASCENCIA Derrick Ot Z95.820 PERIPHERAL VASCULAR ANGIOPLASTY STATUS W 06/09/2019 OLIVIA SORENSON MD Ot Z01.818 ENCOUNTER FOR [...] ABO+Rh group ABP NRG Transfusion band number [id number] NR Blood group antibody screen NEGATIVE NR Capillary blood glucose measurement by glucometer (mass/volume) [...] RED CELLS LEUKO REDUCED AS1 TRANSFUSED 10/18/18 3633 [facility] Blood type T Indirect antibody screen panel - 10/18/18 18:35 ABO+Rh group ABP NR Transfusion band number [id number] [facility] Blood group antibody screen NEGATIVE NRG Complete [...] - 02/27/19 07:20 Bacterial urine culture NG NR Automated blood complete blood count (hemogram) panel [...] Staphylococcus aureus (MRSA) screening culture NEG NRG Capillary blood glucose measurement by glucometer (mass/volume) - 04/29/19 11:37 Capillary blood glucose measurement by glucometer (mass/volume) 118 mg/dL 70-110 Comprehensive metabolic panel - 05/15/19 08:49 Serum or plasma sodium measurement (moles/volume) 137 mmol/L 135-145 Serum or plasma potassium measurement (moles/volume) 3.8 mmol/L 3.6-5.0 Serum or plasma chloride measurement (moles/volume) 102 mmol/L 98-107 Carbon dioxide 23 mmol/L 21-32 Serum or plasma anion gap determination (moles/volume) 12 mmol/L 5-14 Serum or plasma urea nitrogen measurement (mass/volume) 21 mg/dL 7-18 Serum or plasma creatinine measurement (mass/volume) 0.83 mg/dL 0.60-1.30 Serum or plasma urea nitrogen/creatinine mass ratio 25 NRG Serum or plasma creatinine measurement with calculation of estimated glomerular filtration rate > NRG Serum or plasma glucose measurement (mass/volume) 158 mg/dL 70-105 Serum or plasma calcium measurement (mass/volume) 10.1 mg/dL 8.5-10.1 Serum or plasma total bilirubin measurement (mass/volume) 0.3 mg/dL 0.1-1.0 Serum or plasma alkaline phosphatase measurement (enzymatic activity/volume) 158 U/L 40-136 Serum or plasma aspartate aminotransferase measurement (enzymatic activity/volume) 71 U/L 5-34 Serum or plasma alanine aminotransferase measurement (enzymatic activity/volume) 52 U/L 0-55 Serum or plasma protein measurement (mass/volume) 8.2 g/dL 6.4-8.2 Serum or plasma albumin measurement (mass/volume) 3.9 g/dL 3.2-4.5 CALCIUM CORRECTED 10.2 mg/dL 8.5-10.1 Lipid 1996 panel - 05/15/19 08:49 Serum or plasma triglyceride measurement (mass/volume) 173 mg/dL <150 Serum or plasma cholesterol measurement (mass/volume) 130 mg/dL < 200 Serum or plasma cholesterol in HDL measurement (mass/volume) 35 mg/dL 40-60 Cholesterol in LDL [mass/volume] in serum or plasma by direct assay 70 mg/dL 1-129 Serum or plasma cholesterol in VLDL measurement (mass/volume) 35 mg/dL 5-40 Urine microalbumin measurement by test strip (mass/volume) - 05/15/19 08:50 MICROALBUMIN/CREATININE RATIO 36.7 mg/g{Cre} 0.0-30.0 Urine creatinine measurement (mass/volume) 82 % NRG Albumin/creatinine ratio panel in random urine for detection of microalbuminuria 30.1 % 0.0-20.0 Methicillin resistant Staphylococcus aureus (MRSA) screening culture - 05/22/19 12:28 Methicillin resistant Staphylococcus aureus (MRSA) screening culture NEG NRG Complete blood count (CBC) with automated white blood cell (WBC) differential - 06/09/19 13:49 Blood leukocytes automated count (number/volume) 6.9 10*3/uL 4.3-11.0 Blood erythrocytes automated count (number/volume) 4.00 10*6/uL 4.35-5.85 Venous blood hemoglobin measurement (mass/volume) 10.5 g/dL 11.5-16.0 Blood hematocrit (volume fraction) 35 % 35-52 Automated erythrocyte mean corpuscular volume 88 [foz_us] 80-99 Automated erythrocyte mean corpuscular hemoglobin (mass per erythrocyte) 26 pg 25-34 Automated erythrocyte mean corpuscular hemoglobin concentration measurement (mass/volume) 30 g/dL 32-36 Automated erythrocyte distribution width ratio 18.9 % 10.0- 14.5 Automated blood platelet count (count/volume) 203 10*3/uL 130-400 Automated blood platelet mean volume measurement 11.4 [foz_us] 7.4-10.4 Automated blood neutrophils/100 leukocytes 66 % 42-75 Automated blood lymphocytes/100 leukocytes 23 % 12-44 Blood monocytes/100 leukocytes 8 % 0-12 Automated blood eosinophils/100 leukocytes 2 % 0-10 Automated blood basophils/100 leukocytes 0 % 0-10 Blood neutrophils automated count (number/volume) 4.5 10*3 1.8-7.8 Blood lymphocytes automated count (number/volume) 1.6 10*3 1.0-4.0 Blood monocytes automated count (number/volume) 0.6 10*3 0.0- 1.0 Automated eosinophil count 0.2 10*3/uL 0.0-0.3 Automated blood basophil count (count/volume) 0.0 10*3/uL 0.0-0.1 Serum or plasma ferritin measurement (mass/volume) - 06/09/19 13:49 Serum or plasma ferritin measurement (mass/volume) 25.9 % 20.0-177.0 Encounters ACCT No. Visit Date/Time Discharge Status Pt. Type Provider Facility Loc./Unit Complaint [id number] 06/08/2019 05:52:00 06/08/2019 15:41:00 DIS Outpatient OLIVIA SORENSON MD [facility] PREOP COLONOSCOPY [id number] 05/12/2019 10:22:00 06/07/2019 00:01:00 DIS Outpatient VIJAY ATKINS [facility] ONC [id number] 05/28/2019 09:15:00 05/28/2019 23:59:59 CLS Preadmit OLIVIA SORENSON MD [facility] SDC SYMPTOMATIC ADENOMYOMATOSIS OF THE GALLBLADDER [id number] 05/22/2019 12:10:00 05/22/2019 12:35:00 DIS Outpatient OLIVIA SORENSON MD [facility] PREOP SYMPTOMATIC ADENOMYOMATOSIS OF THE GALLBLADDER [id number] 05/15/2019 08:37:00 05/15/2019 23:59:59 CLS Outpatient SHAYYVELASQUEZ GUADALUPE Phong WYLIE [facility] LAB DIABETS [id number] 05/15/2019 08:29:00 05/15/2019 23:59:59 CLS Outpatient OLIVIA SORENSON MD [facility] RAD RUQ PAIN,N/V [id number] 05/12/2019 16:52:00 05/12/2019 23:59:59 CLS Preadmit OLIVIA SORENSON MD [facility] CARD RUQ PAIN,N/V [id number] 04/29/2019 11:13:00 04/29/2019 13:35:00 DIS Outpatient OLIVIA SORESNON MD [facility] ENDO ANEMIA/INCREASED GASTRIC LEVELS [id number] 04/28/2019 05:57:00 04/28/2019 11:15:00 DIS Outpatient OLIVIA SORENSON MD [facility] PREOP EGD [id number] 04/17/2019 14:01:00 04/17/2019 23:59:59 CLS Outpatient VIJAY ATKINS [facility] RAD ELEVATED GASTRIN LEVEL,GASTRITIS,GI BLEED [id number] 02/27/2019 06:51:00 02/27/2019 14:00:00 DIS Outpatient PHYLLIS NIETO MD [facility] CATH ABN STRESS [id number] 02/25/2019 07:00:00 02/25/2019 23:59:59 CLS Outpatient PRAVEEN VILLAVICENCIO [facility] CARD CHEST PAIN,HTN,CAD [id number] 02/18/2019 08:42:00 02/18/2019 23:59:59 CLS Outpatient PRAVEEN VILLAVICENCIO [facility] CARD HTN,CAD,CHEST PAIN [id number] 02/12/2019 13:07:00 02/18/2019 00:01:00 DIS Outpatient VIJAY ATKINS [facility] ONC [id number] 12/29/2018 09:00:00 12/29/2018 23:59:59 CLS Preadmit PHYLLIS NIEOT MD [facility] CR STATUS POST ACB [id number] 10/13/2018 12:30:00 12/28/2018 00:01:00 DIS Outpatient PHYLLIS NIETO MD [facility] CR STATUS POST ACB [id number] 10/23/2018 14:52:00 11/20/2018 13:33:00 DIS Outpatient VIJYA ATKINS [facility] ONC [id number] 10/31/2018 11:24:00 10/31/2018 14:15:00 DIS Outpatient OLIVIA SORENSON MD [facility] ENDO ANEMIA [id number] 10/27/2018 05:50:00 10/27/2018 13:34:00 DIS Outpatient OLIVIA SORENSON MD [facility] PREOP EGD [id number] 10/18/2018 20:30:00 10/19/2018 15:15:00 DIS Inpatient YEIMY BARKER, KIRSTEN Potts [facility] 4TH SEVERE ANEMIA HYPOTENSION,HPOMAGNESSEMA,DEHYDRATIO [id number] 07/17/2018 13:58:00 07/18/2018 00:01:00 DIS Outpatient VIJAY ATKINS [facility] ONC [id number] 06/17/2018 14:41:00 07/17/2018 13:56:00 DIS Outpatient VIJAY ATKINS [facility] ONC [id number] 05/15/2018 17:05:00 05/15/2018 23:59:59 CLS Outpatient PHYLLIS NIETO MD [facility] LAB ANEMIA [id number] 05/08/2018 15:17:00 05/08/2018 23:59:59 CLS Outpatient PHYLLIS NIETO MD [facility] CARD CAD,CHEST PAIN,HTN,DIZZINESS [id number] 05/01/2018 17:04:00 05/01/2018 18:04:00 DIS Emergency MIKEY ARCHIBALD DO [facility] ER DIZZINESS;FALL AT HOME [id number] 04/09/2018 12:51:00 04/09/2018 23:59:59 CLS Outpatient ALAN ROD MD [facility] RAD I25.810 [id number] 03/05/2018 06:49:00 03/05/2018 13:00:00 DIS Outpatient PHYLLIS NIETO MD [facility] CATH ABN STRESS TEST,CAD,HTN [id number] 02/19/2018 07:43:00 02/19/2018 23:59:59 CLS Outpatient PHYLLIS NIEOT MD [facility] CARD CAD [id number] 10/11/2017 06:09:00 10/11/2017 09:40:00 DIS Outpatient JOHN CRUZ DO [facility] SDC THICKENED ENDOMETRIUM [id number] 10/04/2017 09:10:00 10/04/2017 10:03:00 DIS Outpatient JOHN CRUZ DO [facility] PREOP THICKENED ENDOMETRIUM [id number] 09/18/2017 09:25:00 09/18/2017 12:10:00 DIS Outpatient OLIVIA SORENSON MD [facility] ENDO FAM HX COLON CA, HX POLYPS [id number] 09/12/2017 14:30:00 09/12/2017 14:54:00 DIS Outpatient OLIVIA SORENSON MD [facility] PREOP COLO [id number] 08/29/2017 14:52:00 08/29/2017 23:59:59 CLS Outpatient UDAY SALAZAR MD [facility] RAD ABDOMINAL PAIN LUQ R10.12 [id number] 08/26/2017 06:43:00 08/26/2017 23:59:59 CLS Outpatient UDAY SALAZAR MD [facility] RAD ABDOMINAL PAIN LEFT UPPER QUADRANT [id number] 08/08/2017 15:15:00 08/08/2017 23:59:59 CLS Preadmit MARTIN BARKER, UDAY Brown [facility] RAD LUQ ABD PAIN [id number] 02/27/2016 07:08:00 02/27/2016 23:59:59 CLS Outpatient SANTANA-PRAVEEN MAGDALENO [facility] CARD [id number] 02/21/2016 14:51:00 02/21/2016 23:59:59 CLS Outpatient SANTANA-PRAVEEN MAGDALENO [facility] CARD CAD,HTN,HLP, NIDDM [id number] 02/14/2016 13:02:00 02/14/2016 23:59:59 CLS Outpatient GERSON BARKER, PHYLLIS Morales [facility] RAD [id number] 06/12/2019 14:15:00 PEN Preadmit OLIVIA SORENSON MD [facility] ENDO ANEMIA [id number] 06/09/2019 13:44:00 ACT Outpatient VIJAY ATKINS N [facility] ONC [id number] 10/27/2018 13:19:00 Document Registration [id number] 06/24/2018 11:37:00 Document Registration [id number] 06/24/2018 11:32:00 Document Registration [id number] 02/21/2016 14:51:00 Document Registration [id number] 02/25/2013 10:45:00 Document Registration [id number] 08/13/2011 07:02:00 Document Registration [id number] 08/10/2011 08:28:00 Document Registration [id number] 07/13/2010 09:21:00 Document Registration [id number] 07/11/2009 10:05:00 Document Registration [id number] 10/27/2008 14:58:00 Document Registration [id number] 07/23/2008 19:29:00 Document Registration [id number] 06/16/2007 16:49:00 Document Registration [id number] 05/01/2006 09:14:00 Document Registration
[2019-06-12 13:25] VITALS: BP 82/57
[2019-06-12] MEDS ORDERED: NS IV 500 ML 500 ML IV PRN (13:31)
[2019-06-12] MEDS ORDERED: NS IV 500 ML 500 ML ONE (13:39)
--- NOTE | 2019-06-12 13:43 | Conscious Sedation/ASA ---
Conscious Sedation Pre-Proced Time 13:00 ASA Score 2 For ASA 3 and 4: Consider anesthesia and medical clearance. Also, for patients with a history of failed moderate sedation consider anesthesia. Airway Lungs Heart ASA score ASA 1: a normal healthy patient ASA 2: a patient with a mild systemic disease (mid diabetes, controlled hypertension, obesity ASA 3: a patient with a severe systemic disease that limits activity (angina, COPD, prior Myocardial infarction) ASA 4: a patient with an incapacitating disease that is a constant threat to life (CHF, renal failure) ASA 5: a moribund patient not expected to survive 24 hrs. (ruptured aneurysm) ASA 6: a declared brain- patient whose organs are being harvested. For emergent operations, add the letter E after the classification Mallampati Classification Grade 2 Sedation Plan Analgesia, Amnesia, Plan communicated to team members, Discussed options with patient/fam, Discussed risks with patient/fam The patient is an appropriate candidate to undergo the planned procedure, sedation, and anesthesia. The patient immediately re-assessed prior to indication. OLIVIA SORENSON MD Jun 12, 2019 13:43
--- NOTE | 2019-06-12 13:44 | Progress Note-Pre Operative ---
Pre-Operative Progress Note H&P Reviewed The H&P was reviewed, patient examined and no changes noted. Date Seen by Provider: Jun 12, 2019 Time Seen by Provider: 13:00 Date H&P Reviewed: Jun 12, 2019 Time H&P Reviewed: 13:00 Pre-Operative Diagnosis: persistent anemia OLIVIA SORENSON MD Jun 12, 2019 13:43
[2019-06-12] MEDS ORDERED: MIDAZOLAM 2 MG/2 ML (VERSED) VIAL IVP ONE (13:45)
[2019-06-12] MEDS ORDERED: HYDROcodone/APAP 5 MG/325 MG (LORTAB) TAB PO PRN (13:45)
[2019-06-12] MEDS ORDERED: morphine INJ 10 MG/ML 1ML (SYR OR VIAL) IVP PRN ×2 (13:45)
[2019-06-12] MEDS ORDERED: fentaNYL INJECTION 100 MCG/2 ML AMP IVP ONE (13:45)
[2019-06-12] MEDS ORDERED: LIDOCAINE JELLY 2% 6 ML SYRINGE MM PRN (13:45)
[2019-06-12] MEDS ORDERED: ONDANSETRON 4 MG/2 ML (SDV) Z0FRAN IVP PRN (13:45)
[2019-06-12] MEDS ORDERED: ACETAMINOPHEN 325 MG TABLET PO PRN (13:45)
--- NOTE | 2019-06-12 13:48 | Discharge Inst-Surgical ---
D/C Lap Instructions-YAS Follow Up Activity as tolerated High Fiber Diet 25g or more per day Avoid Alcohol, Caffeine, Spicy [place] and Acid foods. Drink 64 fluid oz or more of fluids per day. Symptoms to Report: Fever over 101 degree F, Nausea/Vomiting If any problems/questions: Contact your physician or go to Emergency Room OLIVIA SORENSON MD Jun 12, 2019 13:48
[2019-06-12] MEDS ORDERED: fentaNYL INJECTION 100 MCG/2 ML AMP ONE ×2 (13:56)
[2019-06-12] MEDS ORDERED: MIDAZOLAM 2 MG/2 ML (VERSED) VIAL ONE ×4 (13:56→13:57)
[2019-06-12] MEDS ORDERED: LIDOCAINE JELLY 2% 6 ML SYRINGE ONE (13:56)
[2019-06-12 15:00] VITALS: BP 110/65
[2019-06-12 15:30] VITALS: BP 109/55
[2019-06-12 15:45] VITALS: BP 109/55
--- NOTE | 2019-06-12 16:07 | Progress Note-Post Operative ---
Post-Operative Progess Note Surgeon (s)/Billing Control Clerk (s) Surgeon OLIVIA SORENSON MD Billing Control Clerk: none Pre-Operative Diagnosis persistent anemia Post-Operative Diagnosis mild chronic stage 2 ext and int hemorrhoids, moderate sigmoid diverticulosis, polyp transevers colon(2mm), 2 polyps ascending colon(4mm). Procedure & Operative Findings Date of Procedure 06/12/19 Procedure Performed/Findings colonoscopy with bx and submucosal injection. Anesthesia Type cs Estimated Blood Loss Estimated blood loss (mL): minimal Specimens/Packing Specimens Removed transverse colon, ascending colon x2 OLIVIA SORENSON MD Jun 12, 2019 16:07
--- NOTE | 2019-06-13 00:22 | OPERATIVE REPORT ---
DATE OF SERVICE: 06/12/2019 PREOPERATIVE DIAGNOSIS: Persistent anemia. POSTOPERATIVE DIAGNOSES: Chronic stage II external and internal hemorrhoids, moderate sigmoid diverticulosis, small polyp of the transverse colon, 2 mm in size. Two sessile polyps of the ascending colon approximately 3 to 4 mm in size. PROCEDURE: Colonoscopy with biopsy and submucosal injection. SURGEON: Olivia Sorenson MD ANESTHESIA: Conscious sedation. ESTIMATED BLOOD LOSS: Minimal. FINDINGS: Same as postoperative diagnosis. DISPOSITION: The patient tolerated the procedure well. INDICATIONS: The patient is a 68-year-old female known to us. She has had a long-standing history of iron deficiency anemia with no known source of blood loss. She has undergone EGD in the past and she did have increased rugal folds; however, she did not have any ulcerations or any active bleeding sources. She also did have a colonoscopy a few years ago where diverticulosis identified. She does not report any red blood per rectum nor any dark tarry stools. She continues to be anemic, which is symptomatic. We will proceed with a colonoscopy; however, she is also scheduled for capsule endoscopy. DESCRIPTION OF PROCEDURE: The patient was brought to the endoscopy suite, laid in left lateral decubitus position. After adequate IV pain and sedating medications and conscious sedation anesthesia, a digital rectal examination was performed. Chronic stage II external and internal hemorrhoids were identified, which were not actively edematous nor inflamed and no bleeding. Normal sphincter tone was felt and there were no palpable masses. The endoscope was then intubated to the anus and rectum gently insufflated. The endoscope was then advanced to the valves of [place]tt of the rectal with no polyps or neoplasms identified. There was a slight poor prep due to most likely constipation and oral iron supplementation. There was a moderate severity diverticulosis; however, no signs of diverticulitis as well as no acute or chronic forms of bleeding. A small polyp of the transverse colon was identified, which was biopsied and destroyed using forceps. The endoscope was then advanced to the remainder of the transverse colon to the ascending colon where 2 polyps, which were sessile; however, small approximately 3 to 4 mm in size identified. These were both biopsied and destroyed using forceps and electrocautery. The endoscope was then advanced to the cecum, which appeared normal. The endoscope was then slowly withdrawn while taking a second look and suctioning residual air with no additional findings. The patient tolerated the procedure well. We will await the biopsy results; however, we also did do a submucosal injection of the area of the right side of the colon, if there is any potential malignancy is identified. It is hard to decide if this is the cause of iron deficiency anemia. We will recommend that she continue a capsule endoscopy. Job ID: [id number] DocumentID: [id number] Dictated Date: 06/12/2019 15:16:28 Marketing Mgr Date: 06/13/2019 00:21:29 Dictated By: OLIVIA SORENSON MD MTDD
== END 2019-06-12 15:50 | disposition home or self-care (01) ==
LOC: ENDO 13:10
PROVIDERS: ATTEND Surgery
DX: D12.2 Benign neoplasm of ascending colon (principal); D12.3 Benign neoplasm of transverse colon; K64.8 Other hemorrhoids; K64.1 Second degree hemorrhoids; D50.9 Iron deficiency anemia, unspecified; K21.9 Gastro-esophageal reflux disease without esophagitis; E11.9 Type 2 diabetes mellitus without complications; I25.810 Atherosclerosis of coronary artery bypass graft(s) without angina pectoris; L23.0 Allergic contact dermatitis due to metals; F32.9 Major depressive disorder, single episode, unspecified; F41.9 Anxiety disorder, unspecified; E78.00 Pure hypercholesterolemia, unspecified; Z79.84 Long term (current) use of oral hypoglycemic drugs; Z79.899 Other long term (current) drug therapy; Z87.891 Personal history of nicotine dependence; Z91.040 Latex allergy status; Z95.1 Presence of aortocoronary bypass graft; Z86.73 Personal history of transient ischemic attack (TIA), and cerebral infarction without residual deficits; Z80.3 Family history of malignant neoplasm of breast; Z80.0 Family history of malignant neoplasm of digestive organs; Z80.49 Family history of malignant neoplasm of other genital organs; Z80.41 Family history of malignant neoplasm of ovary; Z82.3 Family history of stroke
CPT/HCPCS: 82962; 88305; 88313

== ENCOUNTER → 2019-08-19 | Outpatient (CLI) | payer MEDICARE, OTHER ==
[2019-08-19 10:20] LABS: BASOPHILS % (AUTO) 0 % (0-10); EOSINOPHILS # (AUTO) 0.2 10^3/uL (0.0-0.3); EOSINOPHILS % (AUTO) 2 % (0-10); HEMATOCRIT 35 % (35-52); HEMOGLOBIN 10.7 G/DL (11.5-16.0); LYMPHOCYTES # (AUTO) 1.8 X 10^3 (1.0-4.0); LYMPHOCYTES % (AUTO) 26 % (12-44); MEAN CORPUSCULAR HEMOGLOBIN 26 PG (25-34); MEAN CORPUSCULAR HGB CONC 31 G/DL (32-36); MEAN CORPUSCULAR VOLUME 85 FL (80-99); MEAN PLATELET VOLUME 10.4 FL (7.4-10.4); MONOCYTES # (AUTO) 0.6 X 10^3 (0.0-1.0); MONOCYTES % (AUTO) 8 % (0-12); NEUTROPHILS # (AUTO) 4.3 X 10^3 (1.8-7.8); NEUTROPHILS % (AUTO) 63 % (42-75); PLATELET COUNT 166 10^3/uL (130-400); RED CELL DISTRIBUTION WIDTH 18.7 % (10.0-14.5); WHITE BLOOD COUNT 6.8 10^3/uL (4.3-11.0)
[2019-08-19 10:49] LABS: ALANINE AMINOTRANSFERASE 36 U/L (0-55); ALBUMIN 3.7 GM/DL (3.2-4.5); ALKALINE PHOSPHATASE 118 U/L (40-136); BILIRUBIN,DIRECT 0.2 MG/DL (0.0-0.3); BILIRUBIN,INDIRECT 0.1 MG/DL; BILIRUBIN,TOTAL 0.3 MG/DL (0.1-1.0); BUN/CREATININE RATIO 20; CALCIUM 9.7 MG/DL (8.5-10.1); CARBON DIOXIDE 27 MMOL/L (21-32); CHLORIDE 104 MMOL/L (98-107); CREATININE SERUM 0.75 MG/DL (0.60-1.30); GFR ESTIMATED > 60; GLUCOSE 104 MG/DL (70-105); POTASSIUM 3.7 MMOL/L (3.6-5.0); SODIUM 138 MMOL/L (135-145); TOTAL PROTEIN 7.9 GM/DL (6.4-8.2)
[2019-08-19 11:11] LABS: ERYTHROCYTE SEDIMENTATION RATE 63 MM/HR (0-30)
== END ==
LOC: LAB 09:40
PROVIDERS: ATTEND Family Medicine
DX: R23.1 Pallor (principal)
CPT/HCPCS: 36415; 80053; 80076; 82248; 82607; 85025; 85652; 86141; 86431

== ENCOUNTER 2019-08-27 13:37 | Outpatient (RCR) | payer MEDICARE, OTHER ==
[2019-06-09 13:54] LABS: BASOPHILS % (AUTO) 0 % (0-10); EOSINOPHILS # (AUTO) 0.2 10^3/uL (0.0-0.3); EOSINOPHILS % (AUTO) 2 % (0-10); HEMATOCRIT 35 % (35-52); HEMOGLOBIN 10.5 G/DL (11.5-16.0); LYMPHOCYTES # (AUTO) 1.6 X 10^3 (1.0-4.0); LYMPHOCYTES % (AUTO) 23 % (12-44); MEAN CORPUSCULAR HEMOGLOBIN 26 PG (25-34); MEAN CORPUSCULAR HGB CONC 30 G/DL (32-36); MEAN CORPUSCULAR VOLUME 88 FL (80-99); MEAN PLATELET VOLUME 11.4 FL (7.4-10.4); MONOCYTES # (AUTO) 0.6 X 10^3 (0.0-1.0); MONOCYTES % (AUTO) 8 % (0-12); NEUTROPHILS # (AUTO) 4.5 X 10^3 (1.8-7.8); NEUTROPHILS % (AUTO) 66 % (42-75); PLATELET COUNT 203 10^3/uL (130-400); RED CELL DISTRIBUTION WIDTH 18.9 % (10.0-14.5); WHITE BLOOD COUNT 6.9 10^3/uL (4.3-11.0)
[2019-07-07 13:47] LABS: BASOPHILS % (AUTO) 1 % (0-10); EOSINOPHILS # (AUTO) 0.1 10^3/uL (0.0-0.3); EOSINOPHILS % (AUTO) 2 % (0-10); HEMATOCRIT 38 % (35-52); HEMOGLOBIN 11.5 G/DL (11.5-16.0); LYMPHOCYTES # (AUTO) 1.4 X 10^3 (1.0-4.0); LYMPHOCYTES % (AUTO) 22 % (12-44); MEAN CORPUSCULAR HEMOGLOBIN 28 PG (25-34); MEAN CORPUSCULAR HGB CONC 31 G/DL (32-36); MEAN CORPUSCULAR VOLUME 93 FL (80-99); MEAN PLATELET VOLUME 11.1 FL (7.4-10.4); MONOCYTES # (AUTO) 0.5 X 10^3 (0.0-1.0); MONOCYTES % (AUTO) 9 % (0-12); NEUTROPHILS # (AUTO) 4.2 X 10^3 (1.8-7.8); NEUTROPHILS % (AUTO) 67 % (42-75); PLATELET COUNT 163 10^3/uL (130-400); RED CELL DISTRIBUTION WIDTH 23.2 % (10.0-14.5); WHITE BLOOD COUNT 6.2 10^3/uL (4.3-11.0)
[2019-07-07 14:14] LABS: ALANINE AMINOTRANSFERASE 46 U/L (0-55); ALBUMIN 3.8 GM/DL (3.2-4.5); ALKALINE PHOSPHATASE 166 U/L (40-136); BILIRUBIN,TOTAL 0.3 MG/DL (0.1-1.0); BUN/CREATININE RATIO 23; CALCIUM 9.6 MG/DL (8.5-10.1); CARBON DIOXIDE 22 MMOL/L (21-32); CHLORIDE 104 MMOL/L (98-107); CREATININE SERUM 0.87 MG/DL (0.60-1.30); GFR ESTIMATED > 60; GLUCOSE 215 MG/DL (70-105); SODIUM 138 MMOL/L (135-145); TOTAL PROTEIN 8.2 GM/DL (6.4-8.2)
[2019-07-17 10:21] LABS: BASOPHILS % (AUTO) 0 % (0-10); EOSINOPHILS # (AUTO) 0.2 10^3/uL (0.0-0.3); EOSINOPHILS % (AUTO) 2 % (0-10); HEMATOCRIT 36 % (35-52); HEMOGLOBIN 11.1 G/DL (11.5-16.0); LYMPHOCYTES % (AUTO) 22 % (12-44); MEAN CORPUSCULAR HEMOGLOBIN 28 PG (25-34); MEAN CORPUSCULAR HGB CONC 31 G/DL (32-36); MEAN CORPUSCULAR VOLUME 91 FL (80-99); MONOCYTES # (AUTO) 0.7 X 10^3 (0.0-1.0); MONOCYTES % (AUTO) 7 % (0-12); NEUTROPHILS # (AUTO) 6.2 X 10^3 (1.8-7.8); NEUTROPHILS % (AUTO) 68 % (42-75); PLATELET COUNT 181 10^3/uL (130-400); RED CELL DISTRIBUTION WIDTH 20.8 % (10.0-14.5)
[2019-07-17 10:43] LABS: ALANINE AMINOTRANSFERASE 54 U/L (0-55); ALBUMIN 3.7 GM/DL (3.2-4.5); ALKALINE PHOSPHATASE 135 U/L (40-136); BILIRUBIN,TOTAL 0.3 MG/DL (0.1-1.0); BUN/CREATININE RATIO 10; CALCIUM 9.8 MG/DL (8.5-10.1); CARBON DIOXIDE 21 MMOL/L (21-32); CHLORIDE 104 MMOL/L (98-107); CREATININE SERUM 0.87 MG/DL (0.60-1.30); GFR ESTIMATED > 60; GLUCOSE 176 MG/DL (70-105); POTASSIUM 3.2 MMOL/L (3.6-5.0); SODIUM 141 MMOL/L (135-145); TOTAL PROTEIN 7.8 GM/DL (6.4-8.2)
[~2019-08-27 13:37] MED LIST changes: +FERRIC CARBOXYMALTOSE (CANCER) 750 MG in NS (IVPB) CANCER CENTER 250 ML IV SCH
[2019-08-27 13:54] LABS: BASOPHILS % (AUTO) 0 % (0-10); EOSINOPHILS # (AUTO) 0.1 10^3/uL (0.0-0.3); EOSINOPHILS % (AUTO) 2 % (0-10); HEMATOCRIT 33 % (35-52); LYMPHOCYTES # (AUTO) 1.7 X 10^3 (1.0-4.0); LYMPHOCYTES % (AUTO) 27 % (12-44); MEAN CORPUSCULAR HEMOGLOBIN 25 PG (25-34); MEAN CORPUSCULAR HGB CONC 31 G/DL (32-36); MEAN CORPUSCULAR VOLUME 83 FL (80-99); MEAN PLATELET VOLUME 11.5 FL (7.4-10.4); MONOCYTES # (AUTO) 0.5 X 10^3 (0.0-1.0); MONOCYTES % (AUTO) 8 % (0-12); NEUTROPHILS # (AUTO) 4.1 X 10^3 (1.8-7.8); NEUTROPHILS % (AUTO) 63 % (42-75); PLATELET COUNT 182 10^3/uL (130-400); RED CELL DISTRIBUTION WIDTH 18.8 % (10.0-14.5); WHITE BLOOD COUNT 6.4 10^3/uL (4.3-11.0)
[2019-08-27 14:31] LABS: ALANINE AMINOTRANSFERASE 39 U/L (0-55); ALBUMIN 3.7 GM/DL (3.2-4.5); ALKALINE PHOSPHATASE 119 U/L (40-136); BILIRUBIN,TOTAL 0.3 MG/DL (0.1-1.0); BUN/CREATININE RATIO 23; CALCIUM 9.5 MG/DL (8.5-10.1); CARBON DIOXIDE 24 MMOL/L (21-32); CHLORIDE 106 MMOL/L (98-107); CREATININE SERUM 0.77 MG/DL (0.60-1.30); GFR ESTIMATED > 60; GLUCOSE 143 MG/DL (70-105); POTASSIUM 3.7 MMOL/L (3.6-5.0); SODIUM 141 MMOL/L (135-145); TOTAL PROTEIN 7.8 GM/DL (6.4-8.2)
== END 2019-09-07 | disposition home or self-care (01) ==
LOC: ONC 13:37
PROVIDERS: ATTEND Internal Medicine Hematology & Oncology
DX: D64.9 Anemia, unspecified (principal); R42 Dizziness and giddiness; I25.10 Atherosclerotic heart disease of native coronary artery without angina pectoris; I10 Essential (primary) hypertension; E78.5 Hyperlipidemia, unspecified; E11.43 Type 2 diabetes mellitus with diabetic autonomic (poly)neuropathy; I73.9 Peripheral vascular disease, unspecified; F17.210 Nicotine dependence, cigarettes, uncomplicated; Z95.820 Peripheral vascular angioplasty status with implants and grafts; Z95.1 Presence of aortocoronary bypass graft; Z79.4 Long term (current) use of insulin; Z79.899 Other long term (current) drug therapy
CPT/HCPCS: 36415; 80053; 82728; 85025; 96365; 99213

== ENCOUNTER → 2019-10-14 | Outpatient (CLI) | payer MEDICARE, OTHER ==
[~2019-10-14] MED LIST changes: -FERRIC CARBOXYMALTOSE (CANCER) 750 MG in NS (IVPB) CANCER CENTER 250 ML IV SCH
== END ==
LOC: LAB 15:27
PROVIDERS: ATTEND Internal Medicine Rheumatology
DX: M05.741 Rheumatoid arthritis with rheumatoid factor of right hand without organ or systems involvement (principal)
CPT/HCPCS: 36415; 86160

== ENCOUNTER → 2019-11-12 | Outpatient (CLI) | payer MEDICARE, OTHER ==
--- NOTE | 2019-11-13 11:04 | Diagnostic Imaging Report ---
INDICATION: Routine screening. Comparison is made with prior mammogram from 07/17/2011 and 07/13/2010. 2-D and 3-D bilateral screening mammography was performed with CAD. Scattered fibroglandular densities are identified bilaterally. Benign calcifications are noted bilaterally. Nodular densities in the left breast appear stable. No dominant mass or malignant appearing microcalcifications are seen. Axillae are unremarkable. IMPRESSION: BI-RADS Category 2 No mammographic features suspicious for malignancy are identified. ACR BI-RADS Category 2: Benign findings. Result letter will be mailed to the patient. Note: At least 10% of breast cancer is not imaged by mammography. Dictated by: Dictated on workstation # [id number]
== END ==
LOC: RAD 14:56
PROVIDERS: ATTEND Nurse Practitioner Adult Health
DX: Z12.31 Encounter for screening mammogram for malignant neoplasm of breast (principal)
CPT/HCPCS: 77067

== ENCOUNTER → 2019-12-09 | Outpatient (RCR) | payer MEDICARE, OTHER ==
[2019-10-08 13:09] LABS: BASOPHILS % (AUTO) 0 % (0-10); EOSINOPHILS # (AUTO) 0.1 10^3/uL (0.0-0.3); EOSINOPHILS % (AUTO) 2 % (0-10); HEMATOCRIT 39 % (35-52); HEMOGLOBIN 11.9 G/DL (11.5-16.0); LYMPHOCYTES # (AUTO) 1.3 X 10^3 (1.0-4.0); LYMPHOCYTES % (AUTO) 23 % (12-44); MEAN CORPUSCULAR HEMOGLOBIN 28 PG (25-34); MEAN CORPUSCULAR HGB CONC 31 G/DL (32-36); MEAN CORPUSCULAR VOLUME 90 FL (80-99); MEAN PLATELET VOLUME 11.6 FL (7.4-10.4); MONOCYTES # (AUTO) 0.5 X 10^3 (0.0-1.0); MONOCYTES % (AUTO) 9 % (0-12); NEUTROPHILS # (AUTO) 3.9 X 10^3 (1.8-7.8); NEUTROPHILS % (AUTO) 67 % (42-75); PLATELET COUNT 159 10^3/uL (130-400); RED CELL DISTRIBUTION WIDTH 24.4 % (10.0-14.5); WHITE BLOOD COUNT 5.8 10^3/uL (4.3-11.0)
[2019-10-08 13:33] LABS: ALBUMIN 4.1 GM/DL (3.2-4.5); BILIRUBIN,TOTAL 0.4 MG/DL (0.1-1.0); CALCIUM 9.7 MG/DL (8.5-10.1); CREATININE SERUM 1.03 MG/DL (0.60-1.30); POTASSIUM 3.4 MMOL/L (3.6-5.0); TOTAL PROTEIN 8.3 GM/DL (6.4-8.2)
[2019-11-04 15:27] LABS: BASOPHILS % (AUTO) 0 % (0-10); EOSINOPHILS # (AUTO) 0.1 10^3/uL (0.0-0.3); EOSINOPHILS % (AUTO) 1 % (0-10); HEMATOCRIT 37 % (35-52); HEMOGLOBIN 11.4 G/DL (11.5-16.0); LYMPHOCYTES # (AUTO) 1.2 X 10^3 (1.0-4.0); LYMPHOCYTES % (AUTO) 16 % (12-44); MEAN CORPUSCULAR HEMOGLOBIN 27 PG (25-34); MEAN CORPUSCULAR HGB CONC 31 G/DL (32-36); MEAN CORPUSCULAR VOLUME 87 FL (80-99); MEAN PLATELET VOLUME 10.8 FL (7.4-10.4); MONOCYTES # (AUTO) 0.3 X 10^3 (0.0-1.0); MONOCYTES % (AUTO) 4 % (0-12); NEUTROPHILS # (AUTO) 5.9 X 10^3 (1.8-7.8); NEUTROPHILS % (AUTO) 79 % (42-75); PLATELET COUNT 156 10^3/uL (130-400); WHITE BLOOD COUNT 7.4 10^3/uL (4.3-11.0)
[2019-11-04 15:41] LABS: BILIRUBIN,TOTAL 0.3 MG/DL (0.1-1.0); CALCIUM 10.2 MG/DL (8.5-10.1); CREATININE SERUM 1.13 MG/DL (0.60-1.30); POTASSIUM 3.7 MMOL/L (3.6-5.0); TOTAL PROTEIN 7.7 GM/DL (6.4-8.2)
[~2019-12-09] MED LIST changes: +FERRIC CARBOXYMALTOSE (CANCER) 750 MG in NS (IVPB) CANCER CENTER 250 ML IV SCH; +FLU QUADRIvalent (5+ YOA) 2019-2020 (Cancer Ctr) 0.5 ML IM ONE
[2019-12-09 15:35] LABS: BASOPHILS % (AUTO) 1 % (0-10); EOSINOPHILS # (AUTO) 0.1 10^3/uL (0.0-0.3); EOSINOPHILS % (AUTO) 2 % (0-10); HEMATOCRIT 41 % (35-52); HEMOGLOBIN 12.7 G/DL (11.5-16.0); LYMPHOCYTES # (AUTO) 1.4 X 10^3 (1.0-4.0); LYMPHOCYTES % (AUTO) 23 % (12-44); MEAN CORPUSCULAR HEMOGLOBIN 30 PG (25-34); MEAN CORPUSCULAR HGB CONC 31 G/DL (32-36); MEAN CORPUSCULAR VOLUME 96 FL (80-99); MONOCYTES # (AUTO) 0.3 X 10^3 (0.0-1.0); MONOCYTES % (AUTO) 6 % (0-12); NEUTROPHILS # (AUTO) 4.1 X 10^3 (1.8-7.8); NEUTROPHILS % (AUTO) 69 % (42-75); PLATELET COUNT 184 10^3/uL (130-400); RED CELL DISTRIBUTION WIDTH 22.2 % (10.0-14.5)
== END | disposition home or self-care (01) ==
LOC: ONC 09-10 13:45
PROVIDERS: ATTEND Internal Medicine Hematology & Oncology
DX: D50.0 Iron deficiency anemia secondary to blood loss (chronic) (principal); I25.10 Atherosclerotic heart disease of native coronary artery without angina pectoris; I10 Essential (primary) hypertension; E78.5 Hyperlipidemia, unspecified; Z79.899 Other long term (current) drug therapy; Z23 Encounter for immunization
CPT/HCPCS: 36415; 80053; 82728; 85025; 90471; 96365; 99213

== ENCOUNTER → 2020-03-02 | Outpatient (CLI) | payer MEDICARE, OTHER ==
[~2020-03-02] MED LIST changes: -FERRIC CARBOXYMALTOSE (CANCER) 750 MG in NS (IVPB) CANCER CENTER 250 ML IV SCH; -FLU QUADRIvalent (5+ YOA) 2019-2020 (Cancer Ctr) 0.5 ML IM ONE
[2020-03-02 13:11] LABS: ALBUMIN 3.7 GM/DL (3.2-4.5); BILIRUBIN,DIRECT 0.2 MG/DL (0.0-0.3); BILIRUBIN,INDIRECT 0.1 MG/DL; BILIRUBIN,TOTAL 0.3 MG/DL (0.1-1.0); CREATININE SERUM 0.93 MG/DL (0.60-1.30); TOTAL PROTEIN 7.6 GM/DL (6.4-8.2)
== END ==
LOC: ONC 12:39
PROVIDERS: ATTEND Internal Medicine Rheumatology
DX: Z01.89 Encounter for other specified special examinations (principal)
CPT/HCPCS: 36415; 80076; 82565; 85652; 86141

== ENCOUNTER 2020-03-30 14:37 | Outpatient (RCR) | payer MEDICARE, OTHER ==
[2020-01-27 15:47] LABS: BASOPHILS % (AUTO) 0 % (0-10); EOSINOPHILS # (AUTO) 0.1 10^3/uL (0.0-0.3); EOSINOPHILS % (AUTO) 2 % (0-10); HEMATOCRIT 36 % (35-52); HEMOGLOBIN 10.7 G/DL (11.5-16.0); LYMPHOCYTES # (AUTO) 1.2 X 10^3 (1.0-4.0); LYMPHOCYTES % (AUTO) 22 % (12-44); MEAN CORPUSCULAR HEMOGLOBIN 29 PG (25-34); MEAN CORPUSCULAR HGB CONC 30 G/DL (32-36); MEAN CORPUSCULAR VOLUME 96 FL (80-99); MEAN PLATELET VOLUME 11.2 FL (7.4-10.4); MONOCYTES # (AUTO) 0.4 X 10^3 (0.0-1.0); MONOCYTES % (AUTO) 8 % (0-12); NEUTROPHILS # (AUTO) 3.7 X 10^3 (1.8-7.8); NEUTROPHILS % (AUTO) 68 % (42-75); PLATELET COUNT 142 10^3/uL (130-400); RED CELL DISTRIBUTION WIDTH 23.8 % (10.0-14.5); WHITE BLOOD COUNT 5.5 10^3/uL (4.3-11.0)
[2020-01-27 16:05] LABS: BILIRUBIN,TOTAL 0.4 MG/DL (0.1-1.0); CALCIUM 9.3 MG/DL (8.5-10.1); CREATININE SERUM 0.96 MG/DL (0.60-1.30); POTASSIUM 3.7 MMOL/L (3.6-5.0)
[2020-03-02 11:32] LABS: BASOPHILS % (AUTO) 0 % (0-10); EOSINOPHILS # (AUTO) 0.1 10^3/uL (0.0-0.3); EOSINOPHILS % (AUTO) 3 % (0-10); HEMATOCRIT 32 % (35-52); HEMOGLOBIN 9.6 G/DL (11.5-16.0); LYMPHOCYTES # (AUTO) 1.2 X 10^3 (1.0-4.0); LYMPHOCYTES % (AUTO) 29 % (12-44); MEAN CORPUSCULAR HEMOGLOBIN 26 PG (25-34); MEAN CORPUSCULAR HGB CONC 30 G/DL (32-36); MEAN CORPUSCULAR VOLUME 86 FL (80-99); MEAN PLATELET VOLUME 10.7 FL (7.4-10.4); MONOCYTES # (AUTO) 0.4 X 10^3 (0.0-1.0); MONOCYTES % (AUTO) 11 % (0-12); NEUTROPHILS # (AUTO) 2.4 X 10^3 (1.8-7.8); NEUTROPHILS % (AUTO) 58 % (42-75); PLATELET COUNT 122 10^3/uL (130-400); RED CELL DISTRIBUTION WIDTH 20.1 % (10.0-14.5); WHITE BLOOD COUNT 4.2 10^3/uL (4.3-11.0)
[~2020-03-30 14:37] MED LIST changes: +FERRIC CARBOXYMALTOSE (CANCER) 750 MG in NS (IVPB) CANCER CENTER 250 ML IV SCH
[2020-03-30 14:52] LABS: BASOPHILS % (AUTO) 0 % (0-10); EOSINOPHILS # (AUTO) 0.2 10^3/uL (0.0-0.3); EOSINOPHILS % (AUTO) 3 % (0-10); HEMATOCRIT 39 % (35-52); HEMOGLOBIN 11.8 G/DL (11.5-16.0); LYMPHOCYTES # (AUTO) 1.2 X 10^3 (1.0-4.0); LYMPHOCYTES % (AUTO) 22 % (12-44); MEAN CORPUSCULAR HEMOGLOBIN 27 PG (25-34); MEAN CORPUSCULAR HGB CONC 30 G/DL (32-36); MEAN CORPUSCULAR VOLUME 91 FL (80-99); MONOCYTES # (AUTO) 0.5 X 10^3 (0.0-1.0); MONOCYTES % (AUTO) 8 % (0-12); NEUTROPHILS # (AUTO) 3.6 X 10^3 (1.8-7.8); NEUTROPHILS % (AUTO) 66 % (42-75); PLATELET COUNT 131 10^3/uL (130-400); RED CELL DISTRIBUTION WIDTH 24.3 % (10.0-14.5); WHITE BLOOD COUNT 5.5 10^3/uL (4.3-11.0)
== END 2020-04-05 | disposition home or self-care (01) ==
LOC: ONC 14:37
PROVIDERS: ATTEND Internal Medicine Hematology & Oncology
DX: D50.0 Iron deficiency anemia secondary to blood loss (chronic) (principal); I25.10 Atherosclerotic heart disease of native coronary artery without angina pectoris; I10 Essential (primary) hypertension; E78.5 Hyperlipidemia, unspecified; Z79.899 Other long term (current) drug therapy
CPT/HCPCS: 36415; 80053; 82728; 85025; 96365; 99213

== ENCOUNTER → 2020-06-09 | Outpatient (CLI) | payer MEDICARE, OTHER ==
[~2020-06-09] MED LIST changes: -FERRIC CARBOXYMALTOSE (CANCER) 750 MG in NS (IVPB) CANCER CENTER 250 ML IV SCH
== END ==
LOC: LABNPT 06:32
PROVIDERS: ATTEND Internal Medicine Gastroenterology
DX: Z20.828 Contact with and (suspected) exposure to other viral communicable diseases (principal)
CPT/HCPCS: 87635

== ENCOUNTER 2020-07-22 13:01 | Outpatient (RCR) | payer MEDICARE, OTHER ==
[2020-05-04 11:21] LABS: BASOPHILS % (AUTO) 0 % (0-10); EOSINOPHILS # (AUTO) 0.1 10^3/uL (0.0-0.3); EOSINOPHILS % (AUTO) 2 % (0-10); HEMATOCRIT 30 % (35-52); LYMPHOCYTES # (AUTO) 1.5 X 10^3 (1.0-4.0); LYMPHOCYTES % (AUTO) 26 % (12-44); MEAN CORPUSCULAR HEMOGLOBIN 25 PG (25-34); MEAN CORPUSCULAR HGB CONC 30 G/DL (32-36); MEAN CORPUSCULAR VOLUME 84 FL (80-99); MEAN PLATELET VOLUME 10.9 FL (7.4-10.4); MONOCYTES # (AUTO) 0.6 X 10^3 (0.0-1.0); MONOCYTES % (AUTO) 10 % (0-12); NEUTROPHILS # (AUTO) 3.5 X 10^3 (1.8-7.8); NEUTROPHILS % (AUTO) 62 % (42-75); PLATELET COUNT 146 10^3/uL (130-400); WHITE BLOOD COUNT 5.8 10^3/uL (4.3-11.0)
[2020-05-04 11:40] LABS: ALBUMIN 3.9 GM/DL (3.2-4.5); BILIRUBIN,TOTAL 0.3 MG/DL (0.1-1.0); CALCIUM 9.2 MG/DL (8.5-10.1); CREATININE SERUM 0.97 MG/DL (0.60-1.30); TOTAL PROTEIN 7.8 GM/DL (6.4-8.2)
[2020-06-09 15:57] LABS: BASOPHILS % (AUTO) 0 % (0-10); EOSINOPHILS # (AUTO) 0.2 10^3/uL (0.0-0.3); EOSINOPHILS % (AUTO) 3 % (0-10); HEMATOCRIT 32 % (35-52); HEMOGLOBIN 9.5 G/DL (11.5-16.0); LYMPHOCYTES # (AUTO) 1.4 X 10^3 (1.0-4.0); LYMPHOCYTES % (AUTO) 30 % (12-44); MEAN CORPUSCULAR HEMOGLOBIN 27 PG (25-34); MEAN CORPUSCULAR HGB CONC 30 G/DL (32-36); MEAN CORPUSCULAR VOLUME 91 FL (80-99); MEAN PLATELET VOLUME 10.8 FL (7.4-10.4); MONOCYTES # (AUTO) 0.6 X 10^3 (0.0-1.0); MONOCYTES % (AUTO) 12 % (0-12); NEUTROPHILS # (AUTO) 2.5 X 10^3 (1.8-7.8); NEUTROPHILS % (AUTO) 54 % (42-75); PLATELET COUNT 139 10^3/uL (130-400); WHITE BLOOD COUNT 4.7 10^3/uL (4.3-11.0)
[2020-07-07 14:51] LABS: BASOPHILS % (AUTO) 0 % (0-10); EOSINOPHILS # (AUTO) 0.1 10^3/uL (0.0-0.3); EOSINOPHILS % (AUTO) 2 % (0-10); HEMATOCRIT 26 % (35-52); HEMOGLOBIN 7.5 G/DL (11.5-16.0); LYMPHOCYTES # (AUTO) 1.2 X 10^3 (1.0-4.0); LYMPHOCYTES % (AUTO) 19 % (12-44); MEAN CORPUSCULAR HEMOGLOBIN 23 PG (25-34); MEAN CORPUSCULAR HGB CONC 29 G/DL (32-36); MEAN CORPUSCULAR VOLUME 78 FL (80-99); MEAN PLATELET VOLUME 10.2 FL (7.4-10.4); MONOCYTES # (AUTO) 0.6 X 10^3 (0.0-1.0); MONOCYTES % (AUTO) 10 % (0-12); NEUTROPHILS % (AUTO) 68 % (42-75); PLATELET COUNT 140 10^3/uL (130-400); WHITE BLOOD COUNT 5.9 10^3/uL (4.3-11.0)
[~2020-07-22 13:01] MED LIST changes: +FERRIC CARBOXYMALTOSE (CANCER) 750 MG in NS (IVPB) CANCER CENTER 250 ML IV SCH
[2020-08-04 11:18] LABS: BASOPHILS % (AUTO) 0 % (0-10); EOSINOPHILS # (AUTO) 0.2 10^3/uL (0.0-0.3); EOSINOPHILS % (AUTO) 3 % (0-10); HEMATOCRIT 36 % (35-52); HEMOGLOBIN 10.4 G/DL (11.5-16.0); LYMPHOCYTES # (AUTO) 1.8 X 10^3 (1.0-4.0); LYMPHOCYTES % (AUTO) 30 % (12-44); MEAN CORPUSCULAR HEMOGLOBIN 26 PG (25-34); MEAN CORPUSCULAR HGB CONC 29 G/DL (32-36); MEAN CORPUSCULAR VOLUME 88 FL (80-99); MEAN PLATELET VOLUME 10.7 FL (7.4-10.4); MONOCYTES # (AUTO) 0.5 X 10^3 (0.0-1.0); MONOCYTES % (AUTO) 9 % (0-12); NEUTROPHILS # (AUTO) 3.4 X 10^3 (1.8-7.8); NEUTROPHILS % (AUTO) 58 % (42-75); PLATELET COUNT 152 10^3/uL (130-400)
[2020-08-04 11:42] LABS: ALBUMIN 3.9 GM/DL (3.2-4.5); BILIRUBIN,TOTAL 0.3 MG/DL (0.1-1.0); CALCIUM 8.7 MG/DL (8.5-10.1); CREATININE SERUM 1.04 MG/DL (0.60-1.30); POTASSIUM 3.9 MMOL/L (3.6-5.0); TOTAL PROTEIN 7.6 GM/DL (6.4-8.2)
== END 2020-08-02 | disposition home or self-care (01) ==
LOC: ONC 13:01
PROVIDERS: ATTEND Internal Medicine Hematology & Oncology
DX: D50.0 Iron deficiency anemia secondary to blood loss (chronic) (principal); I25.10 Atherosclerotic heart disease of native coronary artery without angina pectoris; I10 Essential (primary) hypertension; E78.5 Hyperlipidemia, unspecified; Z79.899 Other long term (current) drug therapy
CPT/HCPCS: 80053; 82728; 85025; G0463; 96365; 99213

== ENCOUNTER → 2020-11-02 | Outpatient (RCR) | payer MEDICARE, OTHER ==
[2020-08-04 11:18] LABS: BASOPHILS % (AUTO) 0 % (0-10); EOSINOPHILS # (AUTO) 0.2 10^3/uL (0.0-0.3); EOSINOPHILS % (AUTO) 3 % (0-10); HEMATOCRIT 36 % (35-52); HEMOGLOBIN 10.4 G/DL (11.5-16.0); LYMPHOCYTES # (AUTO) 1.8 X 10^3 (1.0-4.0); LYMPHOCYTES % (AUTO) 30 % (12-44); MEAN CORPUSCULAR HEMOGLOBIN 26 PG (25-34); MEAN CORPUSCULAR HGB CONC 29 G/DL (32-36); MEAN CORPUSCULAR VOLUME 88 FL (80-99); MEAN PLATELET VOLUME 10.7 FL (7.4-10.4); MONOCYTES # (AUTO) 0.5 X 10^3 (0.0-1.0); MONOCYTES % (AUTO) 9 % (0-12); NEUTROPHILS # (AUTO) 3.4 X 10^3 (1.8-7.8); NEUTROPHILS % (AUTO) 58 % (42-75); PLATELET COUNT 152 10^3/uL (130-400)
[2020-08-04 11:42] LABS: ALBUMIN 3.9 GM/DL (3.2-4.5); BILIRUBIN,TOTAL 0.3 MG/DL (0.1-1.0); CALCIUM 8.7 MG/DL (8.5-10.1); CREATININE SERUM 1.04 MG/DL (0.60-1.30); POTASSIUM 3.9 MMOL/L (3.6-5.0); TOTAL PROTEIN 7.6 GM/DL (6.4-8.2)
[2020-09-05 15:27] LABS: BASOPHILS % (AUTO) 0 % (0-10); HEMOGLOBIN 7.7 g/dL (11.5-16.0); LYMPHOCYTES # (AUTO) 1.7 10^3/uL (1.0-4.0); MEAN CORPUSCULAR HEMOGLOBIN 22 pg (25-34)
[2020-09-05 15:29] LABS: EOSINOPHILS # (AUTO) 0.2 10^3/uL (0.0-0.3); EOSINOPHILS % (AUTO) 3 % (0-10); HEMATOCRIT 27 % (35-52); LYMPHOCYTES % (AUTO) 24 % (12-44); MEAN CORPUSCULAR HGB CONC 29 g/dL (32-36); MEAN CORPUSCULAR VOLUME 78 fL (80-99); MEAN PLATELET VOLUME 10.5 fL (9.0-12.2); MONOCYTES # (AUTO) 0.5 10^3/uL (0.0-1.0); MONOCYTES % (AUTO) 7 % (0-12); NEUTROPHILS # (AUTO) 4.5 10^3/uL (1.8-7.8); NEUTROPHILS % (AUTO) 65 % (42-75); PLATELET COUNT 135 10^3/uL (130-400); WHITE BLOOD COUNT 6.9 10^3/uL (4.3-11.0)
[2020-10-03 15:57] LABS: BASOPHILS % (AUTO) 1 % (0-10); EOSINOPHILS # (AUTO) 0.3 10^3/uL (0.0-0.3); EOSINOPHILS % (AUTO) 5 % (0-10); HEMATOCRIT 37 % (35-52); HEMOGLOBIN 10.5 g/dL (11.5-16.0); LYMPHOCYTES # (AUTO) 1.5 10^3/uL (1.0-4.0); LYMPHOCYTES % (AUTO) 26 % (12-44); MEAN CORPUSCULAR HEMOGLOBIN 26 pg (25-34); MEAN CORPUSCULAR HGB CONC 29 g/dL (32-36); MEAN CORPUSCULAR VOLUME 91 fL (80-99); MEAN PLATELET VOLUME 10.5 fL (9.0-12.2); MONOCYTES # (AUTO) 0.5 10^3/uL (0.0-1.0); MONOCYTES % (AUTO) 9 % (0-12); NEUTROPHILS # (AUTO) 3.3 10^3/uL (1.8-7.8); NEUTROPHILS % (AUTO) 59 % (42-75); PLATELET COUNT 112 10^3/uL (130-400); WHITE BLOOD COUNT 5.6 10^3/uL (4.3-11.0)
[~2020-11-02] MED LIST changes: -PANT40TA3 PO; +PANT40TA52 PO
[2020-11-02 15:19] LABS: BASOPHILS % (AUTO) 1 % (0-10); MEAN CORPUSCULAR HEMOGLOBIN 22 pg (25-34); MEAN CORPUSCULAR HGB CONC 28 g/dL (32-36); MEAN CORPUSCULAR VOLUME 79 fL (80-99); NEUTROPHILS % (AUTO) 64 % (42-75)
[2020-11-02 15:21] LABS: EOSINOPHILS # (AUTO) 0.1 10^3/uL (0.0-0.3); EOSINOPHILS % (AUTO) 2 % (0-10); HEMATOCRIT 28 % (35-52); HEMOGLOBIN 7.7 g/dL (11.5-16.0); LYMPHOCYTES # (AUTO) 1.1 10^3/uL (1.0-4.0); LYMPHOCYTES % (AUTO) 24 % (12-44); MONOCYTES # (AUTO) 0.4 10^3/uL (0.0-1.0); MONOCYTES % (AUTO) 8 % (0-12); NEUTROPHILS # (AUTO) 2.9 10^3/uL (1.8-7.8); PLATELET COUNT 94 10^3/uL (130-400); WHITE BLOOD COUNT 4.5 10^3/uL (4.3-11.0)
[2020-11-02 15:35] LABS: SMEAR SCAN COMMENT YES
[2020-11-02 15:47] LABS: POTASSIUM 3.5 MMOL/L (3.6-5.0)
[2020-11-02 15:48] LABS: CALCIUM 8.9 MG/DL (8.5-10.1)
[2020-11-02 15:49] LABS: TOTAL PROTEIN 7.6 GM/DL (6.4-8.2)
[2020-11-02 15:51] LABS: BILIRUBIN,TOTAL 0.5 MG/DL (0.1-1.0)
[2020-11-02 15:53] LABS: CREATININE SERUM 1.03 MG/DL (0.60-1.30)
== END | disposition home or self-care (01) ==
LOC: ONC 08-04 11:09
PROVIDERS: ATTEND Internal Medicine Hematology & Oncology
DX: D50.0 Iron deficiency anemia secondary to blood loss (chronic) (principal); I25.10 Atherosclerotic heart disease of native coronary artery without angina pectoris; I10 Essential (primary) hypertension; E78.5 Hyperlipidemia, unspecified; I73.9 Peripheral vascular disease, unspecified; M06.9 Rheumatoid arthritis, unspecified; R16.2 Hepatomegaly with splenomegaly, not elsewhere classified; Z79.899 Other long term (current) drug therapy; Z95.1 Presence of aortocoronary bypass graft
CPT/HCPCS: 80053; 82728; 85025; G0463; 96365; 99213

== ENCOUNTER 2020-11-14 11:54 | Outpatient (RCR) | payer MEDICARE, OTHER | END 2020-11-28 16:53 | disposition home or self-care (01) | LOC: ONC 11:54 | PROVIDERS: ATTEND Internal Medicine Hematology & Oncology | DX: Z51.11 Encounter for antineoplastic chemotherapy (principal); D50.0 Iron deficiency anemia secondary to blood loss (chronic); I10 Essential (primary) hypertension; I25.10 Atherosclerotic heart disease of native coronary artery without angina pectoris; I73.9 Peripheral vascular disease, unspecified; M06.9 Rheumatoid arthritis, unspecified; E78.5 Hyperlipidemia, unspecified; Z79.899 Other long term (current) drug therapy; Z95.1 Presence of aortocoronary bypass graft | CPT/HCPCS: 96365 ==

== ENCOUNTER 2021-02-13 10:31 | Outpatient (RCR) | payer MEDICARE, OTHER ==
[2020-12-12 12:42] LABS: BASOPHILS % (AUTO) 0 % (0-10); EOSINOPHILS # (AUTO) 0.1 10^3/uL (0.0-0.3); EOSINOPHILS % (AUTO) 2 % (0-10); HEMATOCRIT 35 % (35-52); HEMOGLOBIN 10.5 g/dL (11.5-16.0); LYMPHOCYTES # (AUTO) 1.3 10^3/uL (1.0-4.0); LYMPHOCYTES % (AUTO) 25 % (12-44); MEAN CORPUSCULAR HEMOGLOBIN 26 pg (25-34); MEAN CORPUSCULAR HGB CONC 30 g/dL (32-36); MEAN CORPUSCULAR VOLUME 87 fL (80-99); MONOCYTES # (AUTO) 0.6 10^3/uL (0.0-1.0); MONOCYTES % (AUTO) 13 % (0-12); NEUTROPHILS # (AUTO) 2.9 10^3/uL (1.8-7.8); NEUTROPHILS % (AUTO) 59 % (42-75); WHITE BLOOD COUNT 4.9 10^3/uL (4.3-11.0)
[2020-12-12 12:43] LABS: PLATELET COUNT 88 10^3/uL (130-400)
[2021-01-02 14:47] LABS: BASOPHILS % (AUTO) 1 % (0-10); EOSINOPHILS # (AUTO) 0.1 10^3/uL (0.0-0.3); EOSINOPHILS % (AUTO) 2 % (0-10); HEMATOCRIT 33 % (35-52); HEMOGLOBIN 9.9 g/dL (11.5-16.0); LYMPHOCYTES # (AUTO) 1.9 X 10^3 (1.0-4.0); LYMPHOCYTES % (AUTO) 29 % (12-44); MEAN CORPUSCULAR HEMOGLOBIN 25 pg (25-34); MEAN CORPUSCULAR HGB CONC 30 g/dL (32-36); MEAN CORPUSCULAR VOLUME 83 fL (80-99); MONOCYTES # (AUTO) 0.6 X 10^3 (0.0-1.0); MONOCYTES % (AUTO) 10 % (0-12); NEUTROPHILS # (AUTO) 3.8 X 10^3 (1.8-7.8); NEUTROPHILS % (AUTO) 59 % (42-75); PLATELET COUNT 98 10^3/uL (130-400); WHITE BLOOD COUNT 6.5 10^3/uL (4.3-11.0)
[2021-02-06 14:13] LABS: BASOPHILS % (AUTO) 1 % (0-10); EOSINOPHILS # (AUTO) 0.2 10^3/uL (0.0-0.3); EOSINOPHILS % (AUTO) 4 % (0-10); HEMATOCRIT 37 % (35-52); LYMPHOCYTES # (AUTO) 1.4 X 10^3 (1.0-4.0); LYMPHOCYTES % (AUTO) 36 % (12-44); MEAN CORPUSCULAR HEMOGLOBIN 28 pg (25-34); MEAN CORPUSCULAR HGB CONC 30 g/dL (32-36); MEAN CORPUSCULAR VOLUME 92 fL (80-99); MEAN PLATELET VOLUME 10.3 fL (9.0-12.2); MONOCYTES # (AUTO) 0.4 X 10^3 (0.0-1.0); MONOCYTES % (AUTO) 10 % (0-12); NEUTROPHILS % (AUTO) 50 % (42-75); PLATELET COUNT 117 10^3/uL (130-400)
[2021-02-06 14:28] LABS: ALBUMIN 3.6 GM/DL (3.2-4.5); BILIRUBIN,TOTAL 0.3 MG/DL (0.1-1.0); CALCIUM 9.1 MG/DL (8.5-10.1); CREATININE SERUM 1.2 MG/DL (0.60-1.30); POTASSIUM 3.8 MMOL/L (3.6-5.0); TOTAL PROTEIN 7.4 GM/DL (6.4-8.2)
[~2021-02-13 10:31] MED LIST changes: -CATHETER FLUSH 10 ML SYR IV PRN; +FERRIC CARBOXYMALTOSE (CANCER) 750 MG in NS (IVPB) CANCER CENTER 250 ML IV SCH; -HOLD METFORMIN - RECEIVED CONTRAST 20 ML VIAL IV SCH; -IOHEXOL 350 MG/ML 100 ML (OMNIPAQUE 350) VIAL IV ONE; -NS 100 ML (IVPB) BAG IV ONE
[2021-02-13] MEDS ORDERED: NS IV 1000 ML (CANCER CTR) 1,000 ML ONE (10:46)
== END 2021-03-12 | disposition home or self-care (01) ==
LOC: ONC 10:31
PROVIDERS: ATTEND Internal Medicine Hematology & Oncology
DX: D50.0 Iron deficiency anemia secondary to blood loss (chronic) (principal); I10 Essential (primary) hypertension; I25.10 Atherosclerotic heart disease of native coronary artery without angina pectoris; I73.9 Peripheral vascular disease, unspecified; M06.9 Rheumatoid arthritis, unspecified; E78.5 Hyperlipidemia, unspecified; Z79.899 Other long term (current) drug therapy; Z95.1 Presence of aortocoronary bypass graft
CPT/HCPCS: 80053; 82728; 85025; 96360; 96361; 96365; 99213

== ENCOUNTER → 2021-02-13 | Outpatient (CLI) | payer MEDICARE, OTHER ==
[~2021-02-13] MED LIST changes: +CATHETER FLUSH 10 ML SYR IV PRN; -FERRIC CARBOXYMALTOSE (CANCER) 750 MG in NS (IVPB) CANCER CENTER 250 ML IV SCH; -FOLI1TAB24 PO; +FOLI1TAB33 PO; +HOLD METFORMIN - RECEIVED CONTRAST 20 ML VIAL IV SCH; +IOHEXOL 350 MG/ML 100 ML (OMNIPAQUE 350) VIAL IV ONE; -LISI-556 PO; +LISI-729 PO; +NS 100 ML (IVPB) BAG IV ONE
--- NOTE | 2021-02-13 14:34 | Diagnostic Imaging Report ---
PROCEDURE: CT abdomen and pelvis with and without contrast. TECHNIQUE: Precontrast acquisitions were acquired through the abdomen and pelvis. Multiple contiguous axial images were obtained through the abdomen and pelvis after the administration of intravenous contrast. Auto Exposure Controls were utilized during the CT exam to meet ALARA standards for radiation dose reduction. INDICATION: Elevated liver enzymes. The previous CT abdomen/pelvis exam of 04/17/2019 noted hepatosplenomegaly but failed to show any sign of an acute abnormality. The gallbladder ultrasound exam performed on 05/15/2019 did suggest adenomyomatosis of the gallbladder. On this study there is now a 1.7 cm ringlike density within the gallbladder fossa. This may be related to a collapsed gallbladder with thickening of the wall. There does seem to be some fluid present in the gallbladder fossa and the possibility that there is an element of acute cholecystitis should be considered. Ultrasound would be recommended for further study. The hepatosplenomegaly seen previously is again evident and no different. There is still no focal mass involving the liver. However in the interval since the previous study mild distortion of the mesenteric fat in the right paracolic gutter has developed. This finding is nonspecific but does raise a question of mild edema/inflammation. The pancreas, the adrenals, the kidneys, the aorta and inferior vena cava and the portal vein show no sign of an acute abnormality. Stomach is not well-distended and consequently difficult to assess. There is no pelvic mass or free fluid collection evident. The appendix was visualized and is not abnormally thickened. The urinary bladder and uterus are grossly unremarkable. The bone windows show no sign of a fracture or of a destructive lesion. The compression deformity of L1 seen previously is again evident and unchanged. IMPRESSION: 1. In the interval since the prior study a ringlike density has developed in the region of the gallbladder fossa. There also appears to be some fluid in this area. The possibility that these findings are related to acute cholecystitis should be considered. Ultrasound would be recommended for further study. 2. There is mild distortion of the mesenteric fat in the region of the right paracolic gutter. This finding is nonspecific but may be related to mild edema/inflammation. There is no mass or abscess evident. 3. There is no acute abnormality of the abdomen or pelvis noted otherwise. 4. The hepatosplenomegaly seen previously is again evident and not significantly changed. Dictated by: Dictated on workstation # [id number]
== END ==
LOC: RAD 12:01
PROVIDERS: ATTEND Nurse Practitioner Adult Health
DX: R74.01 Elevation of levels of liver transaminase levels (principal); R16.2 Hepatomegaly with splenomegaly, not elsewhere classified
CPT/HCPCS: 74178

== ENCOUNTER 2021-02-14 19:19 | Emergency (ER) | payer MEDICARE, OTHER ==
[~2021-02-14 19:19] MED LIST changes: -FERRIC CARBOXYMALTOSE (CANCER) 750 MG in NS (IVPB) CANCER CENTER 250 ML IV SCH
== END 2021-02-14 20:25 | disposition left against medical advice (07) ==
LOC: EDUNIT# 19:19 → ER 19:21
DX: R52 Pain, unspecified (principal); R11.10 Vomiting, unspecified

== ENCOUNTER → 2021-06-14 | Outpatient (CLI) | payer MEDICARE, OTHER | LOC: CARD 15:15 | PROVIDERS: ATTEND Nurse Practitioner Adult Health | DX: R00.8 Other abnormalities of heart beat (principal) | CPT/HCPCS: 93005 ==

== ENCOUNTER 2021-06-16 13:29 | Outpatient (RCR) | payer MEDICARE, OTHER ==
[2021-03-23 14:25] LABS: BASOPHILS % (AUTO) 1 % (0-10); EOSINOPHILS # (AUTO) 0.1 10^3/uL (0.0-0.3); EOSINOPHILS % (AUTO) 2 % (0-10); HEMATOCRIT 26 % (35-52); HEMOGLOBIN 7.6 g/dL (11.5-16.0); LYMPHOCYTES # (AUTO) 1.2 10^3/uL (1.0-4.0); LYMPHOCYTES % (AUTO) 20 % (12-44); MEAN CORPUSCULAR HEMOGLOBIN 24 pg (25-34); MEAN CORPUSCULAR HGB CONC 29 g/dL (32-36); MEAN CORPUSCULAR VOLUME 84 fL (80-99); MEAN PLATELET VOLUME 10.1 fL (9.0-12.2); MONOCYTES # (AUTO) 0.5 10^3/uL (0.0-1.0); MONOCYTES % (AUTO) 8 % (0-12); NEUTROPHILS # (AUTO) 4.2 10^3/uL (1.8-7.8); NEUTROPHILS % (AUTO) 69 % (42-75); PLATELET COUNT 120 10^3/uL (130-400); WHITE BLOOD COUNT 6.1 10^3/uL (4.3-11.0)
[2021-05-01 15:36] LABS: BASOPHILS % (AUTO) 1 % (0-10); EOSINOPHILS # (AUTO) 0.1 10^3/uL (0.0-0.3); EOSINOPHILS % (AUTO) 2 % (0-10); HEMATOCRIT 29 % (35-52); HEMOGLOBIN 8.3 g/dL (11.5-16.0); LYMPHOCYTES # (AUTO) 1.6 10^3/uL (1.0-4.0); LYMPHOCYTES % (AUTO) 24 % (12-44); MEAN CORPUSCULAR HEMOGLOBIN 25 pg (25-34); MEAN CORPUSCULAR HGB CONC 29 g/dL (32-36); MEAN CORPUSCULAR VOLUME 87 fL (80-99); MEAN PLATELET VOLUME 11.4 fL (9.0-12.2); MONOCYTES # (AUTO) 0.6 10^3/uL (0.0-1.0); MONOCYTES % (AUTO) 9 % (0-12); NEUTROPHILS # (AUTO) 4.1 10^3/uL (1.8-7.8); NEUTROPHILS % (AUTO) 64 % (42-75); PLATELET COUNT 160 10^3/uL (130-400); WHITE BLOOD COUNT 6.4 10^3/uL (4.3-11.0)
[2021-05-01 16:02] LABS: ALBUMIN 3.8 GM/DL (3.2-4.5); BILIRUBIN,TOTAL 0.4 MG/DL (0.1-1.0); CALCIUM 9.3 MG/DL (8.5-10.1); CREATININE SERUM 1.24 MG/DL (0.60-1.30); POTASSIUM 4.1 MMOL/L (3.6-5.0); TOTAL PROTEIN 7.5 GM/DL (6.4-8.2)
[2021-06-13 15:53] LABS: BASOPHILS % (AUTO) 1 % (0-10); EOSINOPHILS # (AUTO) 0.2 10^3/uL (0.0-0.3); EOSINOPHILS % (AUTO) 3 % (0-10); HEMATOCRIT 27 % (35-52); HEMOGLOBIN 7.5 g/dL (11.5-16.0); LYMPHOCYTES # (AUTO) 1.4 10^3/uL (1.0-4.0); LYMPHOCYTES % (AUTO) 28 % (12-44); MEAN CORPUSCULAR HEMOGLOBIN 24 pg (25-34); MEAN CORPUSCULAR HGB CONC 28 g/dL (32-36); MEAN CORPUSCULAR VOLUME 86 fL (80-99); MONOCYTES # (AUTO) 0.5 10^3/uL (0.0-1.0); MONOCYTES % (AUTO) 9 % (0-12); NEUTROPHILS % (AUTO) 58 % (42-75); PLATELET COUNT 149 10^3/uL (130-400); WHITE BLOOD COUNT 5.1 10^3/uL (4.3-11.0)
[2021-06-13 15:58] LABS: ALBUMIN 3.9 GM/DL (3.2-4.5); POTASSIUM 3.9 MMOL/L (3.6-5.0)
[2021-06-13 15:59] LABS: CALCIUM 8.8 MG/DL (8.5-10.1)
[2021-06-13 16:00] LABS: TOTAL PROTEIN 7.6 GM/DL (6.4-8.2)
[2021-06-13 16:02] LABS: BILIRUBIN,TOTAL 0.3 MG/DL (0.1-1.0)
[~2021-06-16 13:29] MED LIST changes: +FERRIC CARBOXYMALTOSE (CANCER) 750 MG in NS (IVPB) CANCER CENTER 250 ML IV SCH
== END 2021-06-21 | disposition home or self-care (01) ==
LOC: ONC 13:29
PROVIDERS: ATTEND Internal Medicine Hematology & Oncology
DX: D50.0 Iron deficiency anemia secondary to blood loss (chronic) (principal); I10 Essential (primary) hypertension; I25.10 Atherosclerotic heart disease of native coronary artery without angina pectoris; I73.9 Peripheral vascular disease, unspecified; M06.9 Rheumatoid arthritis, unspecified; E78.5 Hyperlipidemia, unspecified; Z79.899 Other long term (current) drug therapy; Z95.1 Presence of aortocoronary bypass graft; R16.2 Hepatomegaly with splenomegaly, not elsewhere classified; Z86.010 Personal history of colon polyps; K74.60 Unspecified cirrhosis of liver; D69.6 Thrombocytopenia, unspecified; K76.6 Portal hypertension; K31.89 Other diseases of stomach and duodenum; Q27.33 Arteriovenous malformation of digestive system vessel; Z79.4 Long term (current) use of insulin; Z87.891 Personal history of nicotine dependence
CPT/HCPCS: 80053; 82728; 85025; 96365; 99212; 99213

== ENCOUNTER → 2021-09-08 | Outpatient (CLI) | payer MEDICARE, OTHER ==
[~2021-09-08] MED LIST changes: -FERRIC CARBOXYMALTOSE (CANCER) 750 MG in NS (IVPB) CANCER CENTER 250 ML IV SCH
--- NOTE | 2021-09-08 12:21 | Diagnostic Imaging Report ---
Indication: Routine screening. Comparison is made with prior mammogram 11/12/2019 and 07/17/2011. 2-D and 3-D bilateral screening mammography was performed with CAD. Both breasts are heterogeneously dense, limiting the sensitivity of mammography. Previously noted nodular densities in the outer left breast are stable. There are benign calcifications bilaterally. No new mass or malignant-appearing microcalcifications are seen. Axillae are unremarkable. IMPRESSION: BI-RADS Category 2 No mammographic features suspicious for malignancy are identified. ACR BI-RADS Category 2: Benign findings. Result letter will be mailed to the patient. Note: At least 10% of breast cancer is not imaged by mammography. Dictated by: Dictated on workstation # [id number]
== END ==
LOC: RAD 11:30
PROVIDERS: ATTEND Nurse Practitioner Adult Health
DX: Z12.31 Encounter for screening mammogram for malignant neoplasm of breast (principal)
CPT/HCPCS: 77063; 77067

== ENCOUNTER 2021-09-19 14:47 | Outpatient (RCR) | payer MEDICARE, OTHER ==
[2021-07-11 14:38] LABS: BASOPHILS % (AUTO) 1 % (0-10); EOSINOPHILS # (AUTO) 0.1 10^3/uL (0.0-0.3); EOSINOPHILS % (AUTO) 3 % (0-10); HEMATOCRIT 30 % (35-52); HEMOGLOBIN 8.8 g/dL (11.5-16.0); LYMPHOCYTES # (AUTO) 1.1 X 10^3 (1.0-4.0); LYMPHOCYTES % (AUTO) 25 % (12-44); MEAN CORPUSCULAR HEMOGLOBIN 27 pg (25-34); MEAN CORPUSCULAR HGB CONC 29 g/dL (32-36); MEAN CORPUSCULAR VOLUME 91 fL (80-99); MEAN PLATELET VOLUME 9.6 fL (9.0-12.2); MONOCYTES # (AUTO) 0.4 X 10^3 (0.0-1.0); MONOCYTES % (AUTO) 9 % (0-12); NEUTROPHILS # (AUTO) 2.8 X 10^3 (1.8-7.8); NEUTROPHILS % (AUTO) 62 % (42-75); PLATELET COUNT 142 10^3/uL (130-400); WHITE BLOOD COUNT 4.6 10^3/uL (4.3-11.0)
[2021-08-08 14:41] LABS: BASOPHILS % (AUTO) 1 % (0-10); EOSINOPHILS # (AUTO) 0.2 10^3/uL (0.0-0.3); EOSINOPHILS % (AUTO) 3 % (0-10); HEMATOCRIT 22 % (35-52); LYMPHOCYTES # (AUTO) 1.5 10^3/uL (1.0-4.0); LYMPHOCYTES % (AUTO) 28 % (12-44); MEAN CORPUSCULAR HEMOGLOBIN 22 pg (25-34); MEAN CORPUSCULAR HGB CONC 27 g/dL (32-36); MEAN CORPUSCULAR VOLUME 80 fL (80-99); MEAN PLATELET VOLUME 9.9 fL (9.0-12.2); MONOCYTES # (AUTO) 0.6 10^3/uL (0.0-1.0); MONOCYTES % (AUTO) 11 % (0-12); NEUTROPHILS % (AUTO) 57 % (42-75); PLATELET COUNT 134 10^3/uL (130-400); WHITE BLOOD COUNT 5.2 10^3/uL (4.3-11.0)
[2021-08-08 14:43] LABS: HEMOGLOBIN 6.1 g/dL (11.5-16.0)
[2021-08-17 13:41] LABS: EOSINOPHILS # (AUTO) 0.1 10^3/uL (0.0-0.3); EOSINOPHILS % (AUTO) 2 % (0-10); HEMOGLOBIN 8.7 g/dL (11.5-16.0)
[2021-08-17 13:43] LABS: BASOPHILS % (AUTO) 0 % (0-10); HEMATOCRIT 31 % (35-52); LYMPHOCYTES # (AUTO) 1.3 10^3/uL (1.0-4.0); LYMPHOCYTES % (AUTO) 29 % (12-44); MEAN CORPUSCULAR HEMOGLOBIN 25 pg (25-34); MEAN CORPUSCULAR HGB CONC 28 g/dL (32-36); MEAN CORPUSCULAR VOLUME 88 fL (80-99); MEAN PLATELET VOLUME 9.8 fL (9.0-12.2); MONOCYTES # (AUTO) 0.3 10^3/uL (0.0-1.0); MONOCYTES % (AUTO) 6 % (0-12); NEUTROPHILS # (AUTO) 2.6 10^3/uL (1.8-7.8); NEUTROPHILS % (AUTO) 62 % (42-75); PLATELET COUNT 123 10^3/uL (130-400); WHITE BLOOD COUNT 4.3 10^3/uL (4.3-11.0)
[2021-09-05 15:47] LABS: BASOPHILS % (AUTO) 0 % (0-10); EOSINOPHILS # (AUTO) 0.1 10^3/uL (0.0-0.3); EOSINOPHILS % (AUTO) 3 % (0-10); HEMATOCRIT 32 % (35-52); HEMOGLOBIN 9.1 g/dL (11.5-16.0); LYMPHOCYTES # (AUTO) 1.2 X 10^3 (1.0-4.0); LYMPHOCYTES % (AUTO) 27 % (12-44); MEAN CORPUSCULAR HEMOGLOBIN 26 pg (25-34); MEAN CORPUSCULAR HGB CONC 29 g/dL (32-36); MEAN CORPUSCULAR VOLUME 92 fL (80-99); MEAN PLATELET VOLUME 9.9 fL (9.0-12.2); MONOCYTES # (AUTO) 0.4 X 10^3 (0.0-1.0); MONOCYTES % (AUTO) 10 % (0-12); NEUTROPHILS # (AUTO) 2.7 X 10^3 (1.8-7.8); NEUTROPHILS % (AUTO) 61 % (42-75); PLATELET COUNT 143 10^3/uL (130-400); WHITE BLOOD COUNT 4.5 10^3/uL (4.3-11.0)
[2021-09-05 16:18] LABS: ALBUMIN 3.9 GM/DL (3.2-4.5); BILIRUBIN,TOTAL 0.4 MG/DL (0.1-1.0); CALCIUM 9.6 MG/DL (8.5-10.1); CREATININE SERUM 1.13 MG/DL (0.60-1.30); TOTAL PROTEIN 7.6 GM/DL (6.4-8.2)
[~2021-09-19 14:47] MED LIST changes: +FERRIC CARBOXYMALTOSE (CANCER) 750 MG in NS (IVPB) CANCER CENTER 250 ML IV SCH; +NS (IVPB) CANCER CENTER 250 ML ONE
== END 2021-09-21 | disposition home or self-care (01) ==
LOC: ONC 14:47
PROVIDERS: ATTEND Internal Medicine Hematology & Oncology
DX: D50.0 Iron deficiency anemia secondary to blood loss (chronic) (principal); D69.6 Thrombocytopenia, unspecified; I10 Essential (primary) hypertension; I25.10 Atherosclerotic heart disease of native coronary artery without angina pectoris; I73.9 Peripheral vascular disease, unspecified; E78.5 Hyperlipidemia, unspecified; E11.9 Type 2 diabetes mellitus without complications; M06.9 Rheumatoid arthritis, unspecified; Z79.899 Other long term (current) drug therapy; Z95.1 Presence of aortocoronary bypass graft; Z98.890 Other specified postprocedural states; Z79.01 Long term (current) use of anticoagulants; Z72.0 Tobacco use
CPT/HCPCS: 36415; 36430; 80053; 82728; 85025; 86850; 86900; 86901; 86920; 96365; 99213

== ENCOUNTER 2021-11-14 15:03 | Outpatient (RCR) | payer MEDICARE, OTHER ==
[2021-10-03 14:55] LABS: BASOPHILS % (AUTO) 1 % (0-10); EOSINOPHILS # (AUTO) 0.1 10^3/uL (0.0-0.3); EOSINOPHILS % (AUTO) 3 % (0-10); HEMATOCRIT 34 % (35-52); HEMOGLOBIN 9.9 g/dL (11.5-16.0); LYMPHOCYTES # (AUTO) 1.1 10^3/uL (1.0-4.0); LYMPHOCYTES % (AUTO) 25 % (12-44); MEAN CORPUSCULAR HEMOGLOBIN 28 pg (25-34); MEAN CORPUSCULAR HGB CONC 29 g/dL (32-36); MEAN CORPUSCULAR VOLUME 98 fL (80-99); MEAN PLATELET VOLUME 9.6 fL (9.0-12.2); MONOCYTES # (AUTO) 0.4 10^3/uL (0.0-1.0); MONOCYTES % (AUTO) 10 % (0-12); NEUTROPHILS # (AUTO) 2.7 10^3/uL (1.8-7.8); NEUTROPHILS % (AUTO) 61 % (42-75); PLATELET COUNT 132 10^3/uL (130-400); WHITE BLOOD COUNT 4.4 10^3/uL (4.3-11.0)
[2021-10-31 15:32] LABS: BASOPHILS % (AUTO) 1 % (0-10); EOSINOPHILS # (AUTO) 0.2 10^3/uL (0.0-0.3); EOSINOPHILS % (AUTO) 3 % (0-10); HEMATOCRIT 23 % (35-52); LYMPHOCYTES # (AUTO) 1.4 X 10^3 (1.0-4.0); LYMPHOCYTES % (AUTO) 24 % (12-44); MEAN CORPUSCULAR HEMOGLOBIN 23 pg (25-34); MEAN CORPUSCULAR HGB CONC 28 g/dL (32-36); MEAN CORPUSCULAR VOLUME 82 fL (80-99); MONOCYTES # (AUTO) 0.6 X 10^3 (0.0-1.0); MONOCYTES % (AUTO) 10 % (0-12); NEUTROPHILS # (AUTO) 3.6 X 10^3 (1.8-7.8); NEUTROPHILS % (AUTO) 62 % (42-75); PLATELET COUNT 134 10^3/uL (130-400); WHITE BLOOD COUNT 5.8 10^3/uL (4.3-11.0)
[2021-10-31 15:41] LABS: HEMOGLOBIN 6.4 g/dL (11.5-16.0)
[~2021-11-14 15:03] MED LIST changes: -LISI-729 PO; +LISI5TAB20 PO
== END 2021-11-17 | disposition home or self-care (01) ==
LOC: ONC 15:03
PROVIDERS: ATTEND Internal Medicine Hematology & Oncology
DX: D50.0 Iron deficiency anemia secondary to blood loss (chronic) (principal); D69.6 Thrombocytopenia, unspecified; I10 Essential (primary) hypertension; I25.10 Atherosclerotic heart disease of native coronary artery without angina pectoris; I73.9 Peripheral vascular disease, unspecified; E78.5 Hyperlipidemia, unspecified; E11.9 Type 2 diabetes mellitus without complications; M06.9 Rheumatoid arthritis, unspecified; Z79.899 Other long term (current) drug therapy; Z95.1 Presence of aortocoronary bypass graft; Z98.890 Other specified postprocedural states; Z79.01 Long term (current) use of anticoagulants; Z72.0 Tobacco use
CPT/HCPCS: 36430; 82728; 85025; 86850; 86900; 86901; 86920; 96365

== ENCOUNTER 2021-11-28 11:50 | Outpatient (RCR) | payer MEDICARE, OTHER ==
[~2021-11-28 11:50] MED LIST changes: -FERRIC CARBOXYMALTOSE (CANCER) 750 MG in NS (IVPB) CANCER CENTER 250 ML IV SCH; -NS (IVPB) CANCER CENTER 250 ML ONE
[2021-11-28 12:06] LABS: BASOPHILS % (AUTO) 1 % (0-10); MEAN CORPUSCULAR VOLUME 95 fL (80-99)
[2021-11-28 12:08] LABS: EOSINOPHILS # (AUTO) 0.1 10^3/uL (0.0-0.3); EOSINOPHILS % (AUTO) 3 % (0-10); HEMATOCRIT 33 % (35-52); HEMOGLOBIN 9.2 g/dL (11.5-16.0); LYMPHOCYTES % (AUTO) 24 % (12-44); MEAN CORPUSCULAR HEMOGLOBIN 26 pg (25-34); MEAN CORPUSCULAR HGB CONC 28 g/dL (32-36); MONOCYTES # (AUTO) 0.5 10^3/uL (0.0-1.0); MONOCYTES % (AUTO) 11 % (0-12); NEUTROPHILS # (AUTO) 2.6 10^3/uL (1.8-7.8); NEUTROPHILS % (AUTO) 61 % (42-75); PLATELET COUNT 130 10^3/uL (130-400); WHITE BLOOD COUNT 4.3 10^3/uL (4.3-11.0)
[2021-11-28 12:28] LABS: ALBUMIN 3.8 GM/DL (3.2-4.5); BILIRUBIN,TOTAL 0.4 MG/DL (0.1-1.0); CALCIUM 8.7 MG/DL (8.5-10.1); CREATININE SERUM 1.05 MG/DL (0.60-1.30); TOTAL PROTEIN 7.2 GM/DL (6.4-8.2)
== END 2021-12-18 | disposition home or self-care (01) ==
LOC: ONC 11:50
PROVIDERS: ATTEND Internal Medicine Hematology & Oncology
DX: K90.89 Other intestinal malabsorption (principal); I10 Essential (primary) hypertension; I25.10 Atherosclerotic heart disease of native coronary artery without angina pectoris; I73.9 Peripheral vascular disease, unspecified; E78.5 Hyperlipidemia, unspecified; E11.9 Type 2 diabetes mellitus without complications; Z79.899 Other long term (current) drug therapy; Z95.1 Presence of aortocoronary bypass graft; Z98.890 Other specified postprocedural states; Z79.01 Long term (current) use of anticoagulants; Z72.0 Tobacco use
CPT/HCPCS: 80053; 82728; 85025

== ENCOUNTER 2022-03-04 16:58 | Emergency (ER) | payer MEDICARE, OTHER ==
[~2022-03-04] VITALS: Ht 170 cm; Wt 86.0 kg
[2022-03-04 18:22] LABS: ALBUMIN 3.5 GM/DL (3.2-4.5); BASOPHILS % (AUTO) 0 % (0-10); EOSINOPHILS # (AUTO) 0.1 10^3/uL (0.0-0.3); EOSINOPHILS % (AUTO) 3 % (0-10); HEMATOCRIT 28 % (35-52); HEMOGLOBIN 7.8 g/dL (11.5-16.0); LYMPHOCYTES # (AUTO) 0.9 10^3/uL (1.0-4.0); LYMPHOCYTES % (AUTO) 20 % (12-44); MEAN CORPUSCULAR HEMOGLOBIN 29 pg (25-34); MEAN CORPUSCULAR HGB CONC 28 g/dL (32-36); MEAN CORPUSCULAR VOLUME 105 fL (80-99); MEAN PLATELET VOLUME 10.7 fL (9.0-12.2); MONOCYTES # (AUTO) 0.4 10^3/uL (0.0-1.0); MONOCYTES % (AUTO) 10 % (0-12); NEUTROPHILS # (AUTO) 2.7 10^3/uL (1.8-7.8); NEUTROPHILS % (AUTO) 66 % (42-75); PLATELET COUNT 138 10^3/uL (130-400); WHITE BLOOD COUNT 4.2 10^3/uL (4.3-11.0)
[2022-03-04 18:23] LABS: POTASSIUM 4.5 MMOL/L (3.6-5.0)
[2022-03-04 18:24] LABS: CALCIUM 8.4 MG/DL (8.5-10.1)
[2022-03-04 18:25] LABS: TOTAL PROTEIN 6.5 GM/DL (6.4-8.2)
[2022-03-04 18:27] LABS: BILIRUBIN,TOTAL 0.4 MG/DL (0.1-1.0)
[2022-03-04 18:28] LABS: CREATININE SERUM 1.04 MG/DL (0.60-1.30)
--- NOTE | 2022-03-04 18:40 | ED General ---
General Chief Complaint: General Problems/Pain Stated Complaint: BILAT HIP PAIN/BILAT LOWER EXTR SWELLING Nursing Triage Note: PT TO RM 10 PER W/C PT CO OF BILATERAL SWOLLEN EXT, PAIN IN LEGS AND HIPS, WT GAIN. STARTED ABOUT 9 DAYS AGO. RATES PAIN 06/27 (BHUMI VÁSQUEZ) History of Present Illness Date Seen by Provider: Mar 04, 2022 Time Seen by Provider: 17:15 Initial Comments 71-year-old female reports increased swelling in her abdomen and lower legs for the last 9 days. She has a history of cirrhosis (non-alcoholic) and diabetes, on multiple medications for DM. She requires blood and/or iron transfusions every 4-6 weeks for anemia, followed by Dr. Holden with appt tomorrow. No final diagnosis has been made for cause of her anemia. Had CABG 4 years ago and chronic weakness. History of ostearthritis, currently causing increased hip pain. No falls or other trauma. Patient sees multiple specialist in [place] for GI, rheumatology, endocrinology, cardiology, and dermatology. She has a PCP at [facility] but she does not see him regularly. Daughter is SERVICE ORDER TAKER and in town visiting, more concerned with her symptoms. Timing/Duration: Getting Worse Severity: Moderate Associated Systoms: No Chest Pain, No Cough, No Loss of Appetite; Malaise; No Nausea/Vomiting; Weakness (chronic) (BHUMI VÁSQUEZ) Allergies and Home Medications Allergies Coded Allergies: latex (Verified Allergy, Unknown, HIVES, 06/08/19) nickel (Verified Allergy, Unknown, HIVES, 06/08/19) Patient Home Medication List Home Medication List Reviewed: Yes (BHUMI VÁSQUEZ) Cholecalciferol (Vitamin D3) (D3-2000) 2,000 Unit Capsule, 2,000 UNIT PO DAILY, (Reported) Entered as Reported by: KAYLEIGH MCCOY on 03/05/18 0733 Duloxetine HCl (Duloxetine HCl) 60 Mg Capsule., 60 MG PO DAILY, (Reported) Entered as Reported by: MARTINEZ CASTANON on 09/12/17 1453 Folic Acid (Folic Acid) 1 Mg Tablet, 1 MG PO DAILY, (Reported) Entered as Reported by: KAYLEIGH MCCOY on 02/27/19 0744 Insulin Aspart (Novolog Flexpen) 300 Units/3 Ml Solution, 14 UNITS SQ TIDAC, (Reported) Entered as Reported by: MARTINEZ CASTANON on 10/27/18 1321 Insulin Degludec (Tresiba Flextouch U-100) 100 Unit/1 Ml Insuln.pen, 40 UNITS SQ HS, (Reported) Entered as Reported by: MARTINEZ CASTANON on 10/27/18 1319 Liraglutide (Victoza 3-Tejas) 0.6 Mg/0.1 Ml Pen.injctr, 1.2 MG SQ DAILY, (Reported) Entered as Reported by: KAYLEIGH MCCOY on 02/27/19 0744 Metformin HCl (Metformin HCl) 1,000 Mg Tablet, 1,000 MG PO BID, (Reported) Entered as Reported by: MARTINEZ CASTANON on 10/27/18 1319 Multivitamin (Daily Vitamin Formula) 1 Each Tablet, 1 EACH PO DAILY, (Reported) Entered as Reported by: KAYLEIGH MCCOY on 02/27/19 0744 [place]-3 Fatty Acids/Fish Oil ([place] 3 Fish Oil Softgel) 1 Each Capsule.dr, 1 EACH PO DAILY, (Reported) Entered as Reported by: KAYLEIGH MCCOY on 03/05/18 0733 Pantoprazole Sodium (Pantoprazole Sodium) 40 Mg Tablet.dr, 40 MG PO DAILY, (Reported) Entered as Reported by: MARTINEZ CASTANON on 10/27/18 1319 Rosuvastatin Calcium (Rosuvastatin Calcium) 40 Mg Tablet, 40 MG PO DAILY, (Reported) Entered as Reported by: MARTINEZ CASTANON on 09/12/17 1453 Sucralfate (Sucralfate) 1 Gm Tablet, 2 GM PO BID, (Reported) Entered as Reported by: MARTINEZ CASTANON on 05/22/19 1225 Tramadol HCl (Tramadol HCl) 50 Mg Tablet, 50 MG PO Q6H PRN for PAIN Prescribed by: BHUMI VÁSQUEZ on 03/04/222051 Review of Systems Review of Systems Constitutional: no symptoms reported, see HPI Gastrointestinal: see HPI; No abdominal pain, No jaundice, No nausea, No vomiting; other (lower abd distention) Musculoskeletal: see HPI, joint pain (bilat hips) (BHUMI VÁSQUEZ) All Other Systems Reviewed Negative Unless Noted: Yes (BHUMI VÁSQUEZ) Past Zfqmzam-Uznjkw-Gerqqa Hx Immunizations Up To Date Tetanus Booster (TDap): Unknown (BHUMI VÁSQUEZ) Seasonal Allergies Seasonal Allergies: No (BHUMI VÁSQUEZ) Past Medical History Surgeries: Yes (bladder tuck, EYE LIFT, stent in lower legs) Cardiac, CABG Respiratory: Yes Sleep Apnea Currently Using CPAP: No Currently Using BIPAP: No Cardiac: Yes ("SILENT ME" ; PVD WITH BILATERAL LEG STENTS; CAROTID DISEASE) Coronary Artery Disease, Heart Attack, High Cholesterol, Hypertension, Peripheral Vascular Neurological: Yes (2001-stroke) Neuropathy, Stroke Reproductive Disorders: Yes (THICKENED ENDOMETRIUM) Female Reproductive Disorders: Denies 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: 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 Sexually Transmitted Disease: No HIV/AIDS: No Genitourinary: No Gastrointestinal: Yes Gastroesophageal Reflux, Diverticulosis, Polyps Musculoskeletal: Yes (CHRONIC NECK PAIN ) Degenerate Disk Disease, Arthritis, Chronic Back Pain Endocrine: Yes Diabetes, Non-Insulin dep HEENT: No Loss of Vision: Bilateral Hearing Impairment: Denies Cancer: No Skin Did You Recieve Any Treatments: No What Type of Treatment Did You: Surgical Intervention Psychosocial: No Integumentary: No Blood Disorders: Yes (ANEMIA) Adverse Reaction/Blood Tranf: No (N/A) (BHUMI VÁSQUEZ) Family Medical History Reviewed Nursing Family Hx (BHUMI VÁSQUEZ) Physical Exam Vital Signs Vital Signs - First Documented 03/04/22 03/04/22 17:15 19:00 Temp 36.4 Pulse 88 Resp 18 B/P (MAP) 116/54 (74) Pulse Ox 99 O2 Delivery Room Air (CRISTELA,MIKEY K DO) Vital Signs Capillary Refill : Less Than 3 Seconds (BHUMI VÁSQUEZ) Height, Weight, BMI Height: 5'7.00" Weight: 172lbs. 0.0oz. [id number]; 29.00 BMI Method:Stated General Appearance: No Apparent Distress, WD/WN HEENT: PERRL/EOMI, TMs Normal, Normal ENT Inspection, Pharynx Normal Neck: Full Range of Motion, Normal Inspection, Non Tender, Supple Respiratory: Chest Non Tender, Lungs Clear, Normal Breath Sounds Cardiovascular: Regular Rate, Rhythm, No Murmur, Normal Peripheral Pulses Gastrointestinal: Normal Bowel Sounds, Non Tender, Soft, Distended; No Guarding, No Rebound, No Tenderness Extremity: Normal Capillary Refill, Normal Range of Motion, No Calf Tenderness; No Calf Tenderness; Pedal Edema (2+) Neurologic/Psychiatric: Alert, Oriented x3, No Motor/Sensory Deficits, Normal Mood/Affect Skin: Normal Color, Warm/Dry (THALIA,BHUMI VP [employer]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[employer]) Progress/Results/Core Measures Suspected Sepsis SIRS Temperature: Pulse: 88 Respiratory Rate: 18 Laboratory Tests 03/04/22 17:35: White Blood Count 4.2L Blood Pressure 116 /54 Mean: 74 Laboratory Tests 03/04/22 17:35: Creatinine 1.04, INR Comment 1.1, Platelet Count 138, Total Bilirubin 0.4 (BHUMI VÁSQUEZ 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) Results/Orders Lab Results Laboratory Tests Test 03/04/22 17:35 03/04/22 18:34 03/04/22 19:02 03/04/22 20:29 Range/Units White Blood Count 4.2 L 4.3-11.0 10^3/uL Red Blood Count 2.67 L 3.80-5.11 10^6/uL Hemoglobin 7.8 L 11.5-16.0 g/dL Hematocrit 28 L 35-52 % Mean Corpuscular Volume 105 H 80-99 fL Mean Corpuscular Hemoglobin 29 25-34 pg Mean Corpuscular Hemoglobin Concent 28 L 32-36 g/dL Red Cell Distribution Width 29.5 H 10.0-14.5 % Platelet Count 138 130-400 10^3/uL Mean Platelet Volume 10.7 9.0-12.2 fL Immature Granulocyte % (Auto) 1 % Neutrophils (%) (Auto) 66 42-75 % Lymphocytes (%) (Auto) 20 12-44 % Monocytes (%) (Auto) 10 0-12 % Eosinophils (%) (Auto) 3 0-10 % Basophils (%) (Auto) 0 0-10 % Neutrophils # (Auto) 2.7 1.8-7.8 10^3/uL Lymphocytes # (Auto) 0.9 L 1.0-4.0 10^3/uL Monocytes # (Auto) 0.4 0.0-1.0 10^3/uL Eosinophils # (Auto) 0.1 0.0-0.3 10^3/uL Basophils # (Auto) 0.0 0.0-0.1 10^3/uL Immature Granulocyte # (Auto) 0.0 0.0-0.1 10^3/uL Prothrombin Time 14.9 H 12.2-14.7 SEC INR Comment 1.1 0.8-1.4 Activated Partial Thromboplast Time 33 24-35 SEC Sodium Level 143 135-145 MMOL/L Potassium Level 4.5 3.6-5.0 MMOL/L Chloride Level 111 H 98-107 MMOL/L Carbon Dioxide Level 19 L 21-32 MMOL/L Anion Gap 13 5-14 MMOL/L Blood Urea Nitrogen 14 7-18 MG/DL Creatinine 1.04 0.60-1.30 MG/DL Estimat Glomerular Filtration Rate 57 BUN/Creatinine Ratio 13 Glucose Level 52 *L 70-105 MG/DL Calcium Level 8.4 L 8.5-10.1 MG/DL Corrected Calcium 8.8 8.5-10.1 MG/DL Total Bilirubin 0.4 0.1-1.0 MG/DL Aspartate Amino Transf (AST/SGOT) 51 H 5-34 U/L Alanine Aminotransferase (ALT/SGPT) 18 0-55 U/L Alkaline Phosphatase 109 40-136 U/L B-Type Natriuretic Peptide 210.6 H <100.0 PG/ML Total Protein 6.5 6.4-8.2 GM/DL Albumin 3.5 3.2-4.5 GM/DL Amylase Level 54 25-125 U/L Lipase 134 H 8-78 U/L Glucometer 69 L 121 H 70-110 MG/DL Urine Color YELLOW Urine Clarity CLEAR Urine pH 5.0 5-9 Urine Specific [place] >=1.030 1.016-1.022 Urine Protein 1+ H NEGATIVE Urine Glucose (UA) NEGATIVE NEGATIVE Urine Ketones TRACE H NEGATIVE Urine Nitrite NEGATIVE NEGATIVE Urine Bilirubin NEGATIVE NEGATIVE Urine Urobilinogen 0.2 < = 1.0 MG/DL Urine Leukocyte Esterase TRACE H NEGATIVE Urine RBC (Auto) NEGATIVE NEGATIVE Urine RBC 0-2 /HPF Urine WBC 2-5 /HPF Urine Squamous Epithelial Cells 2-5 /HPF Urine Crystals NONE /LPF Urine Bacteria FEW H /HPF Urine Casts PRESENT /LPF Urine Hyaline Casts 0-2 H /LPF Urine Mucus SMALL H /LPF Urine Culture Indicated YES (MIKEY ARCHIBALD DO) Vital Signs/I&O 03/04/22 03/04/22 03/04/22 17:15 19:00 21:25 Temp 36.4 36.4 Pulse 88 86 Resp 18 16 B/P (MAP) 116/54 (74) 124/78 Pulse Ox 99 99 O2 Delivery Room Air Room Air (CRISTELAMIKEY Dolores RODRIGUEZ) Vital Signs/I&O Capillary Refill : Less Than 3 Seconds (BHUMI VÁSQUEZ) Blood Pressure Mean: 74 Progress Note : Time: 17:15 Progress Note Patient seen and evaluated, will obtain labs and re-evaluate. Patient reports her b/p is chronically hypotensive. She ate BALLOON DIPPER and is drinking a regular Dr. Pepper 1800 Per lab, glucose 52. Provided rashid crackers. Recheck Accucheck, 69. Regular diet tray ordered. 1844 Will give Lasix 40mg IV for edema. Tramadol 50 mg for hip pain. Will obtain CT abdomen and pelvis. 1934 accucheck 121. Patient reports improvement in her hip pain, she is able to ambulate with less discomfort. 2034 CT results and labs reviewed with patient and daughter. Discussed options for admission here, transfer to [facility] where her specialists are or outpatient management. The patient does not desire inpatient management, she has an appointment with her brick loader tomorrow. She usually does not retry her a transfusion until hgb is below 7. She will call her GI specialist regarding the abdominal swelling and cirrhosis. Daughter is agreeable with this treatment plan. Discharge instructions and return precautions reviewed with her. (BHUMI VÁSQUEZ) Diagnostic Imaging Diagonstic Imaging: CT Plain Films/CT/US/NM/MRI: abdomen, pelvis Comments NAME: AIDA PAEZ [facility] REC#: [id number] PT STATUS: REG ER : 1950 PHYSICIAN: BHUMI VÁQSUEZ ADMIT DATE: 03/04/22/ER Draft Date of Exam:03/04/22 CT ABDOMEN/PELVIS WO EXAMINATION: CT abdomen and pelvis without contrast. TECHNIQUE: Multiple contiguous axial images were obtained through the abdomen and pelvis without the use of intravenous contrast. All CT scans use one or more of the following dose optimizing techniques: automated exposure control, MA and/or KvP adjustment based on patient size and exam type or iterative reconstruction. HISTORY: Abdominal swelling, cirrhosis. COMPARISON: 02/13/2021. FINDINGS: Limited views of the lower thorax show mild edema and a tiny right effusion. Coronary arteries are calcified. Liver is cirrhotic. No focal liver lesion is seen. There is no biliary ductal dilation. High attenuating foci associated with the fundus of the gallbladder may represent stones or adenomyosis. Pancreas is normal. Spleen is enlarged. Adrenal glands are normal. There are tiny cysts in the kidneys. No suspicious renal lesions. There is no hydronephrosis. Urinary bladder is normal. Bowel is normal in caliber without obstruction or inflammation. No free fluid or air. No abdominal or pelvic lymphadenopathy. Aorta is normal in caliber without aneurysm. There are no suspicious osseus lesions. There is unchanged mild L1 compression fracture. IMPRESSION: 1. Mild edema and tiny right pleural effusion. 2. Cirrhotic liver and splenomegaly. Dictated on workstation # [id number] Dict: 03/04/221921 Trans: 03/04/221927 PJE [id number] Interpreted by: BRENDON ROSS MD Electronically signed by: Reviewed: Reviewed by Me (BHUMI VÁSQUEZ) Departure Impression Primary Impression: Edema Qualified Codes: R60.9 - Edema, unspecified Additional Impression: Anemia Qualified Codes: D64.9 - Anemia, unspecified Disposition: 01 HOME, SELF-CARE Condition: Stable Departure-Patient Inst. Decision time for Depature: 20:35 (BHUMI VÁSQUEZ) [facility]: [facility] [place] (PCP) Primary Care Physician CHRIS AMBROCIO (Family) Primary Care Physician Patient Instructions: Dependent Edema (DC), Normocytic Normochromic Anemia (DC) Add. Discharge Instructions: Keep your scheduled appointments with Dr. Bañuelos for tomorrow for lab check. Elevate your lower extremities to assist with the swelling, you may also try support hose. Follow up with Dr. Yin. Use the tramadol 1 tablet every 6-8 hours as needed for pain. Return to the emergency department for new, urgent healthcare needs. Eat foods high in potassium. All discharge instructions reviewed with patient and/or family. Voiced understanding. Scripts Tramadol HCl (Tramadol HCl) 50 Mg Tablet 50 MG PO Q6H PRN for PAIN, #20 TAB 0 Refills Prov: BHUMI VÁSQUEZ 03/04/22 ATTENDING PHYSICIAN NOTE: I WAS PHYSICALLY PRESENT ER PHYSICIAN, BUT I WAS NOT INVOLVED IN ANY DECISION MAKING OR ANY CARE OF THIS PATIENT. (MIKEY ARCHIBALD DO) Copy Copies To 1: VIJAY ATKINS AMY ARNP Mar 04, 2022 18:40 MIKEY ARCHIBALD DO Mar 05, 2022 02:08
[2022-03-04] MEDS ORDERED: FUROSEMIDE 40 MG/4 ML INJ (LASIX) IVP STA (18:50)
[2022-03-04 19:08] LABS: BILIRUBIN,URINE NEGATIVE (NEGATIVE); CLARITY,URINE CLEAR; COLOR,URINE YELLOW; GLUCOSE, URINE (UA) NEGATIVE (NEGATIVE); KETONES,URINE TRACE (NEGATIVE); LEUKOCYTE ESTERASE ,URINE TRACE (NEGATIVE); NITRITE,URINE NEGATIVE (NEGATIVE); PROTEIN,URINE 1+ (NEGATIVE)
[2022-03-04 19:13] LABS: INR 1.1 (0.8-1.4); PROTHROMBIN TIME PATIENT 14.9 SEC (12.2-14.7)
[2022-03-04 19:20] LABS: BACTERIA,URINE FEW /HPF; HYALINE CASTS, URINE 0-2 /LPF; RBC,URINE 0-2 /HPF
--- NOTE | 2022-03-04 19:29 | Diagnostic Imaging Report ---
EXAMINATION: CT abdomen and pelvis without contrast. TECHNIQUE: Multiple contiguous axial images were obtained through the abdomen and pelvis without the use of intravenous contrast. All CT scans use one or more of the following dose optimizing techniques: automated exposure control, MA and/or KvP adjustment based on patient size and exam type or iterative reconstruction. HISTORY: Abdominal swelling, cirrhosis. COMPARISON: 02/13/2021. FINDINGS: Limited views of the lower thorax show mild edema and a tiny right effusion. Coronary arteries are calcified. Liver is cirrhotic. No focal liver lesion is seen. There is no biliary ductal dilation. High attenuating foci associated with the fundus of the gallbladder may represent stones or adenomyosis. Pancreas is normal. Spleen is enlarged. Adrenal glands are normal. There are tiny cysts in the kidneys. No suspicious renal lesions. There is no hydronephrosis. Urinary bladder is normal. Bowel is normal in caliber without obstruction or inflammation. No free fluid or air. No abdominal or pelvic lymphadenopathy. Aorta is normal in caliber without aneurysm. There are no suspicious osseus lesions. There is unchanged mild L1 compression fracture. IMPRESSION: 1. Mild edema and tiny right pleural effusion. 2. Cirrhotic liver and splenomegaly. Dictated by: Dictated on workstation # [id number]
[2022-03-04] MEDS ORDERED: TRM50T PO (20:51)
[2022-03-04 21:25] VITALS: BP 124/78
== END 2022-03-04 21:25 | disposition home or self-care (01) ==
LOC: EDUNIT# 16:58 → ER 17:01
DX: R60.9 Edema, unspecified (principal); D64.9 Anemia, unspecified; E11.9 Type 2 diabetes mellitus without complications; Z91.040 Latex allergy status; Z79.84 Long term (current) use of oral hypoglycemic drugs
CPT/HCPCS: 36415; 74176; 80053; 81000; 82150; 82947; 83690; 83880; 85025; 85610; 85730; 87088

== ENCOUNTER → 2022-03-23 | Outpatient (CLI) | payer MEDICARE, OTHER ==
[~2022-03-23] MED LIST changes: +TRM50T PO
== END ==
LOC: CARD 13:04
PROVIDERS: ATTEND Physician Assistant
DX: I11.9 Hypertensive heart disease without heart failure (principal); I08.0 Rheumatic disorders of both mitral and aortic valves; I25.10 Atherosclerotic heart disease of native coronary artery without angina pectoris
CPT/HCPCS: 93306

== ENCOUNTER 2022-06-07 05:41 | Outpatient (CLI) | payer MEDICARE, OTHER ==
[~2022-06-07] VITALS: Ht 170.2 cm; Wt 83.9 kg
[2022-06-12] MEDS ORDERED: SEMA0.25 SQ (15:21)
[2022-06-12] MEDS ORDERED: HYDR200T46 PO (15:21)
[2022-06-12] MEDS ORDERED: VITA-259 PO (15:41)
[2022-06-12] MEDS ORDERED: SPIR25TA5 PO (15:41)
== END 2022-06-12 15:55 ==
LOC: PREOP 05:41
PROVIDERS: ATTEND Surgery
DX: Z01.818 Encounter for other preprocedural examination (principal); D50.9 Iron deficiency anemia, unspecified; N28.9 Disorder of kidney and ureter, unspecified

== ENCOUNTER 2022-06-14 07:56 | Day surgery (SDC) | payer MEDICARE, OTHER ==
[~2022-06-14] VITALS: Ht 170.2 cm; Wt 83.9 kg
[2022-06-14] VITALS (8 sets, daily range): BP systolic 94–123; BP diastolic 49–60
[~2022-06-14 07:56] MED LIST changes: +HYDR200T46 PO; +SEMA0.25 SQ; +VITA-259 PO
--- NOTE | 2022-06-14 08:10 | Progress Note-Pre Operative ---
Pre-Operative Progress Note H&P Reviewed The H&P was reviewed, patient examined and no changes noted. Date Seen by Provider: Jun 14, 2022 Time Seen by Provider: 08:09 Date H&P Reviewed: Jun 14, 2022 Time H&P Reviewed: 08:09 Pre-Operative Diagnosis: iron def anemia, poor venous insufficiency WILL SHOOK DO Jun 14, 2022 08:10
[2022-06-14] MEDS ORDERED: ceFAZolin 2 GM IV Premixed 50 ML IV ONE (08:15)
[2022-06-14] MEDS: LACTATED RINGERS 1,000 ML IV PRN ×2 (08:40→08:41)
[2022-06-14] MEDS ORDERED: PROPOFOL INJECTION 50 ML IV ONE (08:43)
[2022-06-14] MEDS ORDERED: MIDAZOLAM 2 MG/2 ML (VERSED) VIAL ONE (08:43)
[2022-06-14] MEDS ORDERED: 0.9% SODIUM CHLORIDE PF INJ 20 ML VIAL ONE (08:44)
[2022-06-14] MEDS ORDERED: LIDOCAINE/EPI 2% 1:200,00 (XYLOCAINE) 20 ML VIAL ONE (08:45)
[2022-06-14] MEDS ORDERED: HEParin (CENTRAL IV FLUSH) 500 UNIT/5 ML SYR ONE (08:45)
--- NOTE | 2022-06-14 11:06 | Discharge Inst-Simple/Standard ---
Discharge Inst-Standard Patient Instructions/Follow Up Plan of Care/Instructions/FU: 2 weeks ySlvester Activity as Tolerated: No Discharge Diet: Regular Diet Other Inst to Patient Follow up Appt: Make appointment for 2 week. Instructions: No lifting greater than 10 pounds. No strenuous activity. May shower in 24 hours, no tub bath or soaking. Use incentive spirometer at home as directed. No Smoking Skin/Wound Care: You have special glue over your incision that will fall off on it's own. Ice pack on 15 min and off 30 min and repeat first 48 hours. This reduces swelling and discomfort. Symptoms to Report: Appetite Changes, Extremity Discoloration, Numbness/Tingling, Swelling Increased, Bleeding Excessive, Eyesight Changes, Pain Increased, Urine Color Change, Constipation(Persistent), Fever over 101 degree F, Pain/Pressure in chest, Urinating Difficulty, Cough Up/Vomit Blood, Heart Beat Irreg/Pounding, Pain/Pressure in jaw, Vaginal Bleeding Increase, Cramps in feet or legs, Lightheadedness, Pain/Pressure in shoulder, Diarrhea(Persistent), Memory Changes Suddenly, Questions/Concerns, Weight gain consecutive days, Dizziness/Fainting, Nausea/Vomiting, Shortness of Breath, Weight gain over 2 pounds If questions or concerns contact your physician Or seek help at emergency department. WILL SHOOK DO Jun 14, 2022 11:06
--- NOTE | 2022-06-14 11:08 | Progress Note-Post Operative ---
Post-Operative Progess Note Surgeon (s)/Public Policy Manager (s) Surgeon WILL SHOOK DO Public Policy Manager: na Pre-Operative Diagnosis iron def anemia, poor venous insufficiency Post-Operative Diagnosis same Procedure & Operative Findings Date of Procedure 06/14/22 Procedure Performed/Findings PROCEDURE: Right internal jugular port placement using ultrasound guidance. COMPLICATIONS: None. INDICATIONS: The patient is a 71 year old female with poor venous access and iron deficiency anemia. Patient understands the risks and benefits of port placement and wished to proceed with the procedure. Consent was signed on the chart. PROCEDURE: The patient was taken to the operating suite, was prepped and draped in the sterile fashion. A surgical pause was performed. Ultrasound was used to locate the internal jugular vein. Once located anesthetic was infiltrated above it. Using micro-access kit, the right internal vein was accessed. Dark nonpulsatile blood was withdrawn. The wire was inserted. Fluoroscopy assured proper placement. The needle was removed. The micro-access dilator was advanced over the wire and the wire was removed. The regular wire was inserted and fluoroscopy assured proper placement. The wire was then secured. Local anesthetic was used to anesthetize from the neck for tunneling down to the right chest and for pocket creation. A 15 blade scalpel was used to make an incision over the right chest. Cautery was used to dissect down to the pectoral fascia. A pocket was created with blunt dissection. The dilator sheath was then advanced over the wire under fluoroscopy and the dilator and wire were removed. The Groshong catheter was inserted through the sheath and the sheath was then removed. The Groshong wire was removed. The catheter was then tunneled to the right chest pocket. Fluoroscopy was used to cut to length and this was then attached to the port which was then placed within the pocket. The port was then accessed without difficulty. It was then flushed with saline and then heparin. The subcutaneous tissues were then reapproximated using 3-0 Vicryl. The areas were then washed and dried. Skin Affix was placed over incision. The insertion point of the neck Skin Affix was placed over the incision. The patient tolerated the procedure well without complication and was taken to recovery room in stable condition. Chest x-ray is pending. Anesthesia Type per carpenter wooden tank erecting Estimated Blood Loss Estimated blood loss (mL): minimal Specimens/Packing Specimens Removed WILL Morillo DO Jun 14, 2022 11:07
[2022-06-14] MEDS ORDERED: morphine INJ 10 MG/ML 1ML (SYR OR VIAL) IVP ONE (11:15)
[2022-06-14] MEDS ORDERED: MEPERIDINE (DEMEROL) INJ 50 MG/ML IVP ONE (11:15)
[2022-06-14] MEDS ORDERED: ONDANSETRON 4 MG/2 ML (SDV) Z0FRAN IVP PRN (11:15)
--- NOTE | 2022-06-14 11:26 | Diagnostic Imaging Report ---
INDICATION: Chest wall port placement. AP view of the chest is obtained with comparison made study of 02/27/2019 Heart size and pulmonary vascularity within normal limits. There has been placement of right anterior chest wall port with catheter tip projecting over the junction of brachiocephalic veins. No pneumothorax is identified. Surgical findings in the mediastinum are stable. IMPRESSION: No evidence of pneumothorax or other immediate complication post right anterior chest wall port placement. Dictated by: Dictated on workstation # [id number]
--- NOTE | 2022-06-14 12:18 | Diagnostic Imaging Report ---
INDICATION: Port placement. COMPARISON: None Total fluoroscopy time: 14 seconds Total number of fluoroscopic images saved: 1 FINDINGS: Single intraoperative image intensifier view of the upper chest was obtained during Port-A-Cath placement. Image provided shows right internal jugular approach with central tip in the SVC. Evaluation for pneumothorax is suboptimal given fluoroscopic modality. Please note, interpreting radiologist was not present during the procedure. IMPRESSION: 1. Fluoroscopic guidance provided during Port-A-Cath placement as above. Dictated by: Dictated on workstation # [id number]
--- NOTE | 2022-06-14 15:36 | Anesthesia-General Post-Op ---
MAC Patient Condition Mental Status/LOC: Same as Preop Cardiovascular: Satisfactory Nausea/Vomiting: Absent Respiratory: Satisfactory Pain: Controlled Complications: Absent Post Op Complications Complications None Follow Up Care/Instructions Patient Instructions None needed. Anesthesiology Discharge Order Discharge Order Patient is doing well, no complaints, stable vital signs, no apparent adverse anesthesia problems. No complications reported per nursing. MILDRED JACKSON CRNA Jun 14, 2022 15:36
== END 2022-06-14 12:20 ==
LOC: SDC 07:56
PROVIDERS: ATTEND Surgery
DX: D50.9 Iron deficiency anemia, unspecified (principal); I87.2 Venous insufficiency (chronic) (peripheral); E66.9 Obesity, unspecified; Z68.29 Body mass index [BMI] 29.0-29.9, adult; Z87.891 Personal history of nicotine dependence
CPT/HCPCS: 36561; 71045; 76000; 82947; 87081; C1788

== ENCOUNTER 2022-07-25 22:40 | Emergency (ER) | payer MEDICARE, OTHER ==
[2022-07-25 23:39] LABS: BASOPHILS % (AUTO) 0 % (0-10); EOSINOPHILS # (AUTO) 0.1 10^3/uL (0.0-0.3)
--- NOTE | 2022-07-25 23:40 | ED Lower Extremity ---
General Chief Complaint: Trauma-Non Activation Stated Complaint: FALL Source: patient, EMS, old records Exam Limitations: no limitations (MARION FERNANDEZ APRN) History of Present Illness Date Seen by Provider: Jul 25, 2022 Time Seen by Provider: 22:42 Initial Comments This is a 71-year-old female who presented to the ER via [facility] for complaints of left hip pain after she fell at home. Patient states that she was moving laundry at home when she fell on her carpeted floor. She had immediate pain in her left hip. She was laying on her right side when EMS arrived. She denies hitting her head, no loss of consciousness. She denies neck pain. She has no tenderness or pain in her upper extremities, torso, or abdomen. States that she does have severe rheumatoid arthritis, "heart problems" and "liver problems". She recently had radiofrequency ablation in her lower back for chronic back pain, but states she has not noticed any improvement of symptoms. No other injuries reported. (MARION FERNANDEZ APRN) Allergies and Home Medications Allergies Coded Allergies: latex (Verified Allergy, Unknown, HIVES, 06/08/19) nickel (Verified Allergy, Unknown, HIVES, 06/08/19) Patient Home Medication List Home Medication List Reviewed: Yes (MARION FERNANDEZ APRN) Cholecalciferol (Vitamin D3) (D3-2000) 2,000 Unit Capsule, 2,000 UNIT PO DAILY, (Reported) Entered as Reported by: KAYLEIGH MCCOY on 03/05/18 0733 Duloxetine HCl (Duloxetine HCl) 60 Mg Capsule.dr, 90 MG PO DAILY, (Reported) Entered as Reported by: MARTINEZ CASTANON on 09/12/17 1453 Folic Acid (Folic Acid) 1 Mg Tablet, 1 MG PO DAILY, (Reported) Entered as Reported by: KAYLEIGH MCCOY on 02/27/19 0744 Hydroxychloroquine Sulfate (Hydroxychloroquine Sulfate) 200 Mg Tablet, 200 MG PO DAILY, (Reported) Entered as Reported by: PAT CASTILLO on 06/12/22 1521 Insulin Aspart (Novolog Flexpen) 100 Unit/Ml (3 Ml) Solution, 25 UNITS SQ TIDAC, (Reported) Entered as Reported by: MARTINEZ CASTANON on 10/27/18 1321 Insulin Degludec (Tresiba Flextouch U-100) 100 Unit/Ml (3 Ml) Insuln.pen, 44 UNITS SQ HS, (Reported) Entered as Reported by: MARTINEZ CASTANON on 10/27/18 1319 Metformin HCl (Metformin HCl) 1,000 Mg Tablet, 1,000 MG PO BID, (Reported) Entered as Reported by: MARTINEZ CASTANON on 10/27/18 1319 Multivitamin (Daily Vitamin Formula) 1 Each Tablet, 1 EACH PO DAILY, (Reported) Entered as Reported by: KAYLEIGH MCCOY on 02/27/19 0744 Belt-3 Fatty Acids/Fish Oil (Belt 3 Fish Oil Softgel) 1 Each Capsule.dr, 1 EACH PO DAILY, (Reported) Entered as Reported by: KAYLEIGH MCCOY on 03/05/18 0733 Pantoprazole Sodium (Pantoprazole Sodium) 40 Mg Tablet.dr, 40 MG PO DAILY, (Reported) Entered as Reported by: MARTINEZ CASTANON on 10/27/18 1319 Rosuvastatin Calcium (Rosuvastatin Calcium) 40 Mg Tablet, 40 MG PO HS, (Reported) Entered as Reported by: MARTINEZ CASTANON on 09/12/17 1453 Semaglutide (Ozempic) Unknown Strength Pen.injctr, Unknown Dose SQ, (Reported) Entered as Reported by: PAT CASTILLO on 06/12/22 1521 Spironolactone (Spironolactone) 25 Mg Tablet, 25 MG PO DAILY, (Reported) Entered as Reported by: PAT CASTILLO on 06/12/22 1541 Sucralfate (Sucralfate) 1 Gm Tablet, 2 GM PO BID, (Reported) Entered as Reported by: MARTINEZ CASTANON on 05/22/19 1225 Tramadol HCl (Tramadol HCl) 50 Mg Tablet, 50 MG PO Q6H PRN for PAIN Prescribed by: BHUMI VÁSQUEZ on 03/04/22 205 Vitamin E (Dl,Tocopheryl Acet) (Vitamin E) 180 Mg (400 Unit) Capsule, 800 MG PO BID, (Reported) Entered as Reported by: PAT CASTILLO on 06/12/22 1541 Review of Systems Constitutional: no symptoms reported EENTM: no symptoms reported Respiratory: no symptoms reported Cardiovascular: no symptoms reported Gastrointestinal: no symptoms reported Genitourinary: no symptoms reported Musculoskeletal: see HPI Skin: no symptoms reported Psychiatric/Neurological: No Symptoms Reported (MARION FERNANDEZ APRN) Past Yzznmnt-Vxtuxw-Ibigwk Hx Immunizations Up To Date Tetanus Booster (TDap): Unknown First/Initial COVID19 Vaccinat: 12/2020 Second COVID19 Vaccination Joe: 01/2021 Third COVID19 Vaccination Date: 09/2021 & 04/2022 (MARION FERNANDEZ APRN) Seasonal Allergies Seasonal Allergies: No (MARION FERNANDEZ APRN) Past Medical History Surgeries: Yes (bladder tuck, EYE LIFT, stent in UPPER LEGS BILATERAL) Cardiac, CABG Respiratory: Yes Sleep Apnea Currently Using CPAP: No Currently Using BIPAP: No Cardiac: Yes (PVD WITH BILATERAL LEG STENTS; CAROTID DISEASE) Coronary Artery Disease, High Cholesterol, Hypotension, Peripheral Vascular Neurological: Yes (2001-stroke) Neuropathy, Stroke Reproductive Disorders: Yes (THICKENED ENDOMETRIUM) Female Reproductive Disorders: 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 0.0oz. [id number]; 28.96 BMI Method:Stated General Appearance: WD/WN, no apparent distress HEENT: PERRL/EOMI, normal ENT inspection, pharynx normal Neck: non-tender, full range of motion, supple, normal inspection Cardiovascular: normal peripheral pulses, regular rate, rhythm, no gallop Respiratory: lungs clear, normal breath sounds, no respiratory distress, no accessory muscle use Gastrointestinal: normal bowel sounds, non tender, soft Hips: right hip non-tender, right hip normal inspection, right hip normal range of motion; left hip pain, left hip soft tissue tenderness, left hip swelling Legs: left leg pain, left leg soft tissue tenderness Knees: bilateral knee non-tender, bilateral knee normal inspection, bilateral knee bone tenderness Ankles: bilateral ankle non-tender, bilateral ankle normal inspection, bilateral ankle normal range of motion, bilateral ankle no evidence of injury Feet: bilateral foot non-tender, bilateral foot normal inspection, bilateral foot normal range of motion, bilateral foot no evidence of injury Neurologic/Tendon: normal sensation, normal motor functions, responds to pain Neurologic/Psychiatric: no motor/sensory deficits, alert, normal mood/affect, oriented x 3 Skin: normal color, warm/dry (MARION FERNANDEZ APRN) Progress/Results/Core Measures Results/Orders Lab Results Laboratory Tests Test 07/25/22 23:10 Range/Units White Blood Count 4.7 4.3-11.0 10^3/uL Red Blood Count 2.78 L 3.80-5.11 10^6/uL Hemoglobin 7.9 L 11.5-16.0 g/dL Hematocrit 27 L 35-52 % Mean Corpuscular Volume 97 80-99 fL Mean Corpuscular Hemoglobin 28 25-34 pg Mean Corpuscular Hemoglobin Concent 29 L 32-36 g/dL Red Cell Distribution Width 20.9 H 10.0-14.5 % Platelet Count 119 L 130-400 10^3/uL Mean Platelet Volume 10.2 9.0-12.2 fL Immature Granulocyte % (Auto) 1 % Neutrophils (%) (Auto) 75 42-75 % Lymphocytes (%) (Auto) 14 12-44 % Monocytes (%) (Auto) 9 0-12 % Eosinophils (%) (Auto) 2 0-10 % Basophils (%) (Auto) 0 0-10 % Neutrophils # (Auto) 3.5 1.8-7.8 10^3/uL Lymphocytes # (Auto) 0.7 L 1.0-4.0 10^3/uL Monocytes # (Auto) 0.4 0.0-1.0 10^3/uL Eosinophils # (Auto) 0.1 0.0-0.3 10^3/uL Basophils # (Auto) 0.0 0.0-0.1 10^3/uL Immature Granulocyte # (Auto) 0.0 0.0-0.1 10^3/uL Percent Immature Platelet Fraction 2.8 0.0-7.6 % Sodium Level 142 135-145 MMOL/L Potassium Level 4.0 3.6-5.0 MMOL/L Chloride Level 107 98-107 MMOL/L Carbon Dioxide Level 24 21-32 MMOL/L Anion Gap 11 5-14 MMOL/L Blood Urea Nitrogen 20 H 7-18 MG/DL Creatinine 0.88 0.60-1.30 MG/DL Estimat Glomerular Filtration Rate 70 BUN/Creatinine Ratio 23 Glucose Level 147 H 70-105 MG/DL Calcium Level 8.6 8.5-10.1 MG/DL Corrected Calcium 8.8 8.5-10.1 MG/DL Total Bilirubin 0.3 0.1-1.0 MG/DL Aspartate Amino Transf (AST/SGOT) 33 5-34 U/L Alanine Aminotransferase (ALT/SGPT) 24 0-55 U/L Alkaline Phosphatase 129 40-136 U/L Total Protein 6.6 6.4-8.2 GM/DL Albumin 3.7 3.2-4.5 GM/DL (JEAN NEVAREZ MD) My Orders Orders - JEAN NEVAREZ MD O2 (07/26/22 01:30) (JEAN NEVAREZ MD) Medications Given in ED Current Medications Medications Dose Ordered Sig/Giancarlo Route Start Time Stop Time Status Last Admin Dose Admin Fentanyl Citrate 50 mcg ONCE ONCE IVP 07/25/22 23:45 07/25/22 23:46 DC 07/25/22 23:48 50 MCG Hydromorphone HCl 1 mg ONCE ONCE IV 07/26/22 01:15 07/26/22 01:16 DC 07/26/22 01:11 1 MG (JEAN NEVAREZ MD) Vital Signs/I&O 07/25/22 07/26/22 07/26/22 22:42 01:31 01:53 Temp 35.8 35.8 Pulse 85 83 Resp 18 16 B/P (MAP) 120/64 (82) 143/74 Pulse Ox 93 99 O2 Delivery Room Air Nasal Cannula Nasal Cannula O2 Flow Rate 2.00 2.00 (JEAN NEVAREZ MD) Progress Progress Note : Progress Note Patient examined and in no acute distress. Vital signs are stable. Port access per EMS prior to arrival, was given fentanyl 100 mcg in route. States that she is comfortable at this time and she has not moved. If she is moved and she has 10/10 pain in her left hip. Orders placed for basic labs and imaging of her left hip and pelvis. Basic labs reviewed, her hemoglobin is about her baseline at 7.9. She has no other noted injuries other than her left hip at this time. Imaging reviewed and looks like she has a intertrochanteric fracture of her left hip, pending radiology review. Neurovascular is intact distal to injury. Patient has significant co-morbidities and extensive cardiac history. States all of her specialist are at [place]. Based on patient extensive medical history and traumatic injury, I recommend she be transferred for higher level of care. Discussed findings with patient and spouse. Patient consented to transfer. Prior to committing to transfer, I discussed with Dr. Lomax Orthopedist software validation technician, he personally does not perform the surgery needed for this type of fracture, therefore to admission to [facility] may cause surgical delay. Additionally medical clearance may be difficult for surgery as all of her cardiac care has been provided at [facility]. Based on these factors it is my medical judgment that transfer is necessary. Plan of care was discussed with Dr. Baldo pruett, ER attending is in agreement with transfer, he also reviewed x-ray images and agrees with intertrochanteric fracture of left hip. Discussed case with Dr. Hurley, ER physician at [facility]. Accepted transfer at 0029. Updated patient and family. (MARION FERNANDEZ APRN) Diagnostic Imaging Diagonstic Imaging: Xray Plain Films/CT/US/NM/MRI: pelvis, hip Comments 1. Concern for left intertrochanteric fracture, no obvious pelvic fracture. Pending radiology review. Reviewed imaging with Dr. Nevarez, ER attending. Reviewed: Reviewed by Me (MARION FERNANDEZ APRN) Departure Communication (Admissions) Time/Spoke to Consulting Phy: 00:42 Dr. Lomax (MARION FERNANDEZ APRN) Impression Primary Impression: Intertrochanteric fracture of left hip Additional Impression: Fall on same level Disposition: 02 XFER SHT-TRM HOSP Condition: Stable Transfer Transfer Reason: Exceeds level of care Time Spoke to Accepting Phy: 01:02 Transfer [facility] Time: 01:02 Transfer Facility: [facility] Method of Transfer: EMS (MARION FERNANDEZ APRN) Departure-Patient Inst. Referrals: [facility] [place] (PCP/Family) Primary Care Physician ATTENDING PHYSICIAN NOTE: I was physically present as attending physician in the emergency department during the care of this patient. I reviewed x-ray imaging with the marion Fernandez NP. Demineralization makes interpretation of x-rays difficult. This does appear to be a displaced intertrochanteric hip fracture. Patient expressed a preference to be transferred to [facility] where her cardiac care has been given. Transfer is medically necessary as the current orthopedist on-call does not perform the needed surgery to treat this fracture. Cardiac history with extensive work-up and care at [facility] makes [facility] the most appropriate choice for transfer for best continuity of care and medical clearance prior to surgery. I reviewed plan of care with Marion Fernandez and agree. I did not physically examine this patient or interview her in person. (JEAN NEVAREZ MD) MARION FERNANDEZ APRN Jul 25, 2022 23:40 JEAN NEVAREZ MD Jul 26, 2022 05:58
[2022-07-25 23:41] LABS: EOSINOPHILS % (AUTO) 2 % (0-10); HEMATOCRIT 27 % (35-52); HEMOGLOBIN 7.9 g/dL (11.5-16.0); LYMPHOCYTES # (AUTO) 0.7 10^3/uL (1.0-4.0); LYMPHOCYTES % (AUTO) 14 % (12-44); MEAN CORPUSCULAR HEMOGLOBIN 28 pg (25-34); MEAN CORPUSCULAR HGB CONC 29 g/dL (32-36); MEAN CORPUSCULAR VOLUME 97 fL (80-99); MEAN PLATELET VOLUME 10.2 fL (9.0-12.2); MONOCYTES # (AUTO) 0.4 10^3/uL (0.0-1.0); MONOCYTES % (AUTO) 9 % (0-12); NEUTROPHILS # (AUTO) 3.5 10^3/uL (1.8-7.8); NEUTROPHILS % (AUTO) 75 % (42-75); PLATELET COUNT 119 10^3/uL (130-400); WHITE BLOOD COUNT 4.7 10^3/uL (4.3-11.0)
[2022-07-25 23:42] LABS: ALBUMIN 3.7 GM/DL (3.2-4.5)
[2022-07-25 23:43] LABS: CALCIUM 8.6 MG/DL (8.5-10.1)
[2022-07-25 23:44] LABS: TOTAL PROTEIN 6.6 GM/DL (6.4-8.2)
[2022-07-25] MEDS ORDERED: fentaNYL INJ 100 MCG/2 ML AMP IVP ONE (23:45)
[2022-07-25 23:46] LABS: BILIRUBIN,TOTAL 0.3 MG/DL (0.1-1.0)
[2022-07-25 23:48] LABS: CREATININE SERUM 0.88 MG/DL (0.60-1.30)
[2022-07-26] MEDS ORDERED: HYDROmorphone 2 MG/ML VIAL (DILAUDID) IV ONE (01:15)
[2022-07-26 01:53] VITALS: BP 143/74
--- NOTE | 2022-07-26 08:15 | Diagnostic Imaging Report ---
Pelvis and left hip 1131h. INDICATION: Fell hip pain Single AP view the pelvis and AP lateral views left hip were obtained. There is a displaced intertrochanteric fracture of the left femur. The distal fracture fragment is displaced superiorly and overrides the proximal fracture fragment by approximately 4 cm. The main fracture fragments also lie nearly 90 degrees to each other. No other fracture or acute bony abnormality is appreciated. There is moderate degenerative disease of the hip and sacroiliac joints. The soft tissues are unremarkable. IMPRESSION: 1.. There is a displaced intertrochanteric fracture of the left femur. 2. If further evaluation of the extent of the injury to the femur is desired, then CT would be recommended. Dictated by: Dictated on workstation # [id number]
== END 2022-07-26 01:53 | disposition short-term general hospital (02) ==
LOC: EDUNIT# 22:40 → ER 22:41
DX: S72.142A Displaced intertrochanteric fracture of left femur, initial encounter for closed fracture (principal); M25.561 Pain in right knee; M25.562 Pain in left knee; Z91.040 Latex allergy status; W18.30XA Fall on same level, unspecified, initial encounter; Y92.009 Unspecified place in unspecified non-institutional (private) residence as the place of occurrence of the external cause; Y93.E2 Activity, laundry
CPT/HCPCS: 36415; 51702; 80053; 85025

== ENCOUNTER 2022-07-30 09:49 | Inpatient (IN) | payer MEDICARE, OTHER ==
[~2022-07-30] VITALS: Ht 170.2 cm; Wt 97.1 kg
--- NOTE | 2022-07-30 10:36 | PM&R Post Admission Assessment ---
PM&R Date of Visit: Jul 30, 2022 Time of Visit: 19:00 History of Present Illness CC: Debility following left hip fracture with slow recovery and severe acute on chronic pain HPI: This is a 71yoWF clinic patient of [facility] who has a h/o DM, CVA and chronic and debilitating pain managed by pain management specialty who presents from [facility] s/p left hip fracture repair. Pain continues to be an issue and realistic expectations were provided considering her chronic pain is managed by the pain campaign management specialist and we do not have that specialty here at [facility]. Leg spasms seem to be the issue. Bowels and bladder are functioning well. is at the bedside. CC: S/P Left Hip Fracture Repair HPI: Patient is a 71 y/o F with history of Arthritis, IDDM, and Stroke presents to inpatient rehab floor after obtaining a left hip fracture on 07/26/22 after falling at home. Prior to her surgical repair on 07/26/22, patient received 1 unit of PRBCs due to her history of chronic iron deficiency anemia. She then received 2 more PRBCs after her surgery on 07/28/22. She was [facility] from [place] for rehab and monitoring of her recovery. Her pain is controlled with [place] 7.5mg, Baclofen, and Gabapentin. Today, patient seems to be alert and moving around in her wheelchair. She states she still has some pain in her left lower extremity. PMH: CAD High Cholesterol PVD Stroke GERD Diverticulosis Arthritis IDDM Chronic Iron Deficiency Anemia Rheumatoid Arthritis PSH: Cardiac: CABG x3 Allergies: ciprofloxacin, lates, niacin, nickel Home Meds: Cholecalciferol (Vitamin D3) (D3-2000), 2,000 UNIT PO DAILY, (Reported) Duloxetine HCl (Duloxetine HCl), 90 MG PO DAILY, (Reported) Folic Acid (Folic Acid), 1 MG PO DAILY, (Reported) Hydroxychloroquine Sulfate (Hydroxychloroquine Sulfate), 200 MG PO DAILY, (Reported) Insulin Aspart (Novolog Flexpen), 25 UNITS SQ TIDAC, (Reported) Insulin Degludec (Tresiba Flextouch U-100), 44 UNITS SQ HS, (Reported) Metformin HCl (Metformin HCl), 1,000 MG PO BID, (Reported) Multivitamin (Daily Vitamin Formula), 1 EACH PO DAILY, (Reported) [place]-3 Fatty Acids/Fish Oil ([place] 3 Fish Oil Softgel), 1 EACH PO DAILY, (Reported) Pantoprazole Sodium (Pantoprazole Sodium), 40 MG PO DAILY, (Reported) Rosuvastatin Calcium (Rosuvastatin Calcium), 40 MG PO HS, (Reported) Spironolactone (Spironolactone), 25 MG PO DAILY, (Reported) Sucralfate (Sucralfate), 2 GM PO BID, (Reported) Vitamin E (Dl,Tocopheryl Acet) (Vitamin E), 800 MG PO BID, (Reported) Scheduled PRN Tramadol HCl (Tramadol HCl), 50 MG PO Q6H PRN for PAIN Miscellaneous Medications Semaglutide (Ozempic), Unknown Dose SQ, (Reported) Social History: Former smoker, quit 4.5 years ago Denies EtOH or illicit drug use. Family History: none ROS: denies fever, chills, chest pain, or shortness of breath States she has "muscle spasms" in the left leg with movement. States she has pain throughout the left lower extremity Physical Exam: Heart: Regular Rate, Rhythm, no M/R/Gs no peripheral edema Lungs: CTAB, no accessory muscle use Extremities: Left lower extremity bandaged without drainage, no erythema, some swelling present over the left hip and femur Labs/Imaging: none Assessment: S/P surgical repair of Left Hip Fracture Chronic Iron Deficiency Anemia IDDM History of Arthritis History of RA Plan: Continue to monitor patient labs and Hbg Transfuse if necessary given patient history of chronic anemia PT OT Pain control MICHAELA LGUO Jul 30, 2022 14:18 <Created by MICHAELA LUGO > Past Kyotese-Jjwutj-Unzncv Hx Past Med/Social Hx: Reviewed Nursing Past Med/Soc Hx, Reviewed and Corrections made Patient Social History Marrital Status: Employed/Student: retired Alcohol Use: Occasionally Uses Smoking Status: Former Smoker Former Smoker, Quit: March 26, 2018 Type Used: Cigarettes 2nd Hand Smoke Exposure: No Recent Hopitalizations: No Immunizations Up To Date Tetanus Booster (TDap): Unknown Date of Pneumonia Vaccine: Jul 27, 2015 Date of Influenza Vaccine: Aug 19, 2018 Seasonal Allergies Seasonal Allergies: No Past Medical History Surgeries: Cardiac, CABG Currently Using CPAP: No Currently Using BIPAP: No Cardiac: Coronary Artery Disease, High Cholesterol, Hypotension, Peripheral Vascular Neurological: Neuropathy, Stroke Reproductive: Yes (THICKENED ENDOMETRIUM) Sexually Transmitted Disease: No HIV/AIDS: No Female Reproductive Disorders: Denies Menopausal Gastrointestinal: Gastroesophageal Reflux, Gastrointestinal Bleed, Diverticulosis, Polyps Musculoskeletal: Degenerate Disk Disease, Arthritis, Chronic Back Pain Endocrine: Diabetes, Insulin dep HEENT: Cataract Loss of Vision: Bilateral Hearing Impairment: Denies Cancer: Skin Did You Recieve Any Treatments: No What Type of Treatment Did You: Surgical Intervention Skin/Integumentary: Recent Skin Changes History of Blood Disorders: Yes (ANEMIA) Adverse Reaction to Blood [place]: No (N/A) PM&R Allergy/Meds/Data Review Allergies Coded Allergies: ciprofloxacin (Verified Allergy, Unknown, Rash, 07/30/22) latex (Verified Allergy, Unknown, HIVES, 07/30/22) niacin (Verified Allergy, Unknown, Rash, 07/30/22) nickel (Verified Allergy, Unknown, HIVES, 07/30/22) Home Medications Scheduled Baclofen (Baclofen), 5 MG PO TID, (Reported) Cetirizine HCl (Cetirizine HCl), 10 MG PO DAILY, (Reported) Cholecalciferol (Vitamin D3) (Vitamin D3), 25 MCG PO DAILY, (Reported) Duloxetine HCl (Duloxetine HCl), 60 MG PO HS, (Reported) Duloxetine HCl (Duloxetine HCl), 30 MG PO HS, (Reported) Folic Acid (Folic Acid), 1 MG PO DAILY, (Reported) Gabapentin (Gabapentin), 100 MG PO TID, (Reported) Hydroxychloroquine Sulfate (Hydroxychloroquine Sulfate), 200 MG PO DAILY, (Reported) Insulin Glargine,Hum.rec.anlog (Lantus), 20 UNIT SQ HS, (Reported) Insulin Lispro (Humalog Kwikpen), 5 UNIT SQ AC, (Reported) Metformin HCl (Metformin HCl), 1,000 MG PO BID, (Reported) Multivitamin with Minerals (One Daily Plus Minerals), 1 EACH PO DAILY, (Reported) [place]-3/Dha/Epa/Fish Oil (Fish Oil 1,200 mg Softgel), 1,200 MG PO BID, ( Reported) Pantoprazole Sodium (Pantoprazole Sodium), 40 MG PO BID, (Reported) Rosuvastatin Calcium (Rosuvastatin Calcium), 40 MG PO HS, (Reported) Semaglutide (Ozempic), 0.5 MG SQ MON, (Reported) Sucralfate (Sucralfate), 2 GM PO BID, (Reported) Scheduled PRN Hydrocodone/Acetaminophen (Hydrocodone-Acetamin 10-325 mg), 1 EACH PO Q6H PRN for PAIN-MODERATE (5-7), (Reported) Discontinued Medications Cholecalciferol (Vitamin D3) (D3-2000), 2,000 UNIT PO DAILY, (Reported) Discontinued Reason: Prescription changed Insulin Aspart (Novolog Flexpen), 24-25 UNITS SQ AC, (Reported) Discontinued Reason: No Longer Taking Insulin Degludec (Tresiba Flextouch U-100), 44 UNITS SQ HS, (Reported) Discontinued Reason: No Longer Taking Multivitamin (Daily Vitamin Formula), 1 EACH PO DAILY, (Reported) Discontinued Reason: Prescription changed [place]-3 Fatty Acids/Fish Oil ([place] 3 Fish Oil Softgel), 1 EACH PO DAILY, (Reported) Discontinued Reason: Prescription changed Spironolactone (Spironolactone), 25 MG PO DAILY, (Reported) Discontinued Reason: No Longer Taking Vitamin E (Dl,Tocopheryl Acet) (Vitamin E), 360 MG PO BID, (Reported) Discontinued Reason: No Longer Taking Current Medications Current Medications Reviewed Review of Systems Constitutional: see HPI, dizziness, malaise, weakness EENTM: no symptoms reported Respiratory: no symptoms reported Cardiovascular: no symptoms reported Gastrointestinal: no symptoms reported Genitourinary: no symptoms reported Musculoskeletal: back pain, joint pain, joint swelling, muscle pain, muscle stiffness, muscle cramps, muscle twitching, muscle weakness Skin: no symptoms reported Psychiatric/Neurological: Anxiety, Weakness All Other Systems Reviewed Negative Unless Noted: Yes Physical Exam Physical Exam Vital Signs Capillary Refill : Height, Weight, BMI Height: 5'7.00" Weight: 172lbs. 0.0oz. [id number]; 28.96 BMI Method:Stated General Appearance: No Apparent Distress, WD/WN, Chronically ill Eyes: Bilateral Eye Normal Inspection, Bilateral Eye PERRL HEENT: PERRL/EOMI, Normal ENT Inspection, Pharynx Normal Neck: Full Range of Motion, Normal Inspection, Non Tender, Supple, Carotid Bruit Respiratory: Chest Non Tender, Lungs Clear, Normal Breath Sounds, No Accessory Muscle Use, No Respiratory Distress Cardiovascular: Regular Rate, Rhythm, No Edema, No Gallop, No JVD, No Murmur, Normal Peripheral Pulses Gastrointestinal: Normal Bowel Sounds, No Organomegaly, No Pulsatile Mass, Non Tender, Soft Back: Normal Inspection, No CVA Tenderness, No Vertebral Tenderness Extremity: Normal Capillary Refill, Normal Inspection, Normal Range of Motion (except left leg), Non Tender, No Calf Tenderness, No Pedal Edema Neurologic/Psychiatric: Alert, Oriented x3, No Motor/Sensory Deficits, Normal Mood/Affect, Abnormal Gait, Motor Weakness (left leg) Skin: Normal Color, Warm/Dry Lymphatic: No Adenopathy PM&R Medical Assessment & Plan REHAB/MEDICAL ASSESSMENT AND PLAN: REHAB IMPAIRMENT GROUP: Left hip fracture ETIOLOGIC DIAGNOSIS: Left hip fracture The comorbidities that impact the patients function and/or functional outcome by: advanced age, chronic pain managed by pain campaign management specialist, anemia REHAB PLAN: The patient is being admitted to our comprehensive inpatient rehabilitation [facility] and can tolerate the intensity of service consisting of at least: 180 minutes of therapy a day, 5 out of 7 days a week Rehab treatment will consist of: PT OT will focus on regaining function in order to return back to independent living with use of AD and focus on fall risk prevention The patient/family has a good understanding of our discharge process and will benefit from an interdisciplinary inpatient rehabilitation program. The patient has potential to make improvement and is in need of at least two of the following multidisciplinary therapies including but not limited to physical, occupational, speech, and prosthetics and orthotics. Additionally the patient will need services from respiratory, nutritional services, wound care, psychology, etc. (Customize this to each patient). Given the patients complex condition and risk of further medical complications, rehabilitation services cannot be safely or effectively provided at a lower level of care such as a group home facility. BARRIERS TO DISCHARGE: Fall risk and severe pain acute on chronic ESTIMATED LOS: 10 days DISPOSITION: Home with spouse RELEVANT CHANGES SINCE PREADMISSION SCREENING: I have compared the patients medical and functional status at the time of the preadmission screening and there are: no changes PROGNOSIS: Good REHABILITATION GOALS: 1. PT OT will focus on regaining function in order to return back to independent living with use of AD and focus on fall risk prevention All the above goals were reviewed with the patient and he/she is in agreement. By signing this document, I acknowledge that I have personally performed a full physical examination on this patient within 24 hours of admission to this inpatient rehabilitation facility and have determined the patient to be able to tolerate the above course of treatment at an intensive level for a reasonable period of time. I will be completing a detailed individualized Plan of Care for this patient by day #4 of the patients stay based upon the Preadmission Screen, the Post-Admission Evaluation, and the therapy evaluations. Admission Dx/Comorbidities: (1) Intertrochanteric fracture of left hip Status: Acute ICD Codes: S72.142A - Displaced intertrochanteric fracture of left femur, initial encounter for closed fracture (2) Iron deficiency anemia ICD Codes: D50.9 - Iron deficiency anemia, unspecified Assessment/Plan Assessment and Plan Assess & Plan/Chief Complaint Assessment: s/p left hip fracture repair Acute on chronic severe pain managed as outpatient by pain campaign management specialist CVA hx RA DM HTN CAD previous CABG GIB hx Post op anemia s/p 3 units of blood Plan: PT OT Pain control BM regimen Fall risk EDY IVEY DO Jul 30, 2022 10:36
[2022-07-30] MEDS ORDERED: diphenhydrAMINE 25 MG TAB (BENADRYL) PO PRN (10:45)
[2022-07-30] MEDS ORDERED: CALCIUM CARBONATE 500 MG (TUMS) TAB.CHEW PO PRN (10:45)
[2022-07-30] MEDS ORDERED: LOPERAMIDE 2 MG (IMODIUM) TABLET PO PRN (10:45)
[2022-07-30] MEDS ORDERED: BISACODYL 10 MG SUPP (DULCOLAX) PR PRN (10:45)
[2022-07-30] MEDS ORDERED: ONDANSETRON 4 MG (ZOFRAN) ORAL DISSOLVE TAB PO PRN (10:45)
[2022-07-30] MEDS ORDERED: LACTULOSE SYRUP 10GM/15ML (ENULOSE) 30ML UDC PO PRN (10:45)
[2022-07-30] MEDS ORDERED: FLEET ENEMA ADULT 1 EA BTL PR PRN (10:45)
[2022-07-30] MEDS ORDERED: guaiFENesin/CODEINE (ROBITUSSIN AC) 10ML UDC PO PRN (10:45)
[2022-07-30] MEDS ORDERED: DOCUSATE SODIUM 100 MG (COLACE) CAP PO PRN (10:45)
[2022-07-30] MEDS ORDERED: ACETAMINOPHEN 325 MG TABLET PO PRN (10:45)
[2022-07-30] MEDS ORDERED: CHOL100048 PO (13:04)
[2022-07-30] MEDS ORDERED: MULT-422 PO (13:04)
[2022-07-30] MEDS ORDERED: DULO30CA49 PO (13:05)
[2022-07-30] MEDS ORDERED: OMEG12002 PO (13:07)
[2022-07-30] MEDS ORDERED: INSU100I23 SQ (13:58)
[2022-07-30] MEDS ORDERED: INSU100V6 SQ (13:58)
[2022-07-30] MEDS ORDERED: GABA-486 PO (13:58)
[2022-07-30] MEDS ORDERED: BACL5TAB PO (13:58)
[2022-07-30] MEDS ORDERED: HYDR-3820 PO (13:58)
[2022-07-30] MEDS ORDERED: CETI10TA17 PO (13:58)
--- NOTE | 2022-07-30 14:15 | Physical Therapy Evaluation ---
PT Evaluation-General Medical Diagnosis Admission Date 07/30/22 Medical Diagnosis: Left Hip fracture Onset Date: Jul 25, 2022 Therapy Diagnosis Therapy Diagnosis: Gait deficit, strength deficit Height/Weight Height (Feet): 5 Height (Inches): 7.00 Weight (Pounds): 172 Weight (Ounces): 0.0 Precautions Precautions/Isolations: Fall Prevention, Standard Precautions Weight Bear Status Right Lower Extremity: Right Full Weight Bearing Left Lower Extremity: Left Weight Bearing/Tolerated Referral Physician: Elaine Reason for Referral: Evaluation/Treatment Medical History Reviewed History: Yes Social History Home: Single Level Current Living Status: Spouse Entry Into Home: Ramp Prior Prior Level of Function SCALE: Activities may be completed with or without assistive devices. 0-Evegqxkxzr-cawxtop completes the activity by him/herself with no assistance from a helper. 5-Set-up or Clean-up Assistance-helper sets up or cleans up; patient completes activity. [place] assists only prior to or following the activity. 4-Supervision or Touching Assistance-helper provides verbal cues and/or touching/steadying and/or contact guard assistance as patient completes activity. Assistance may be provided throughout the activity or intermittently. 3-Partial/Moderate Assistance-helper does LESS THAN HALF the effort. [place] lifts, holds or supports trunk or limbs, but provides less than half the effort. 2-Substantial/Maximal Assistance-helper does MORE THAN HALF the effort. [place] lifts or holds trunk or limbs and provides more than half the effort. 7-Kjimtbfyn-yltsrx does ALL the effort. Patient does none of the effort to complete the activity. Or, the assistance of 2 or more helpers is required for the patient to complete the activity. If activity was not attempted, code reason: 7-Patient Refused. 9-Not Applicable-not attempted and the patient did not perform the activity before the current illness, exacerbation or injury. 10-Not Attempted due to Environmental Limitations-(lack of equipment, weather restraints, etc.). 88-Not Attempted due to Medical Conditions or Safety Concerns. Bed Mobility: 6 Transfers (B,C,W/C): 6 Gait: 6 Wheelchair Mobility: 6 Indoor Mobility (Ambulation): Independent Stairs: Not Applicalbe Prior Devices Use: Manual wheelchair, Walker PT Evaluation-Current Subjective Patient presents to this ARU with driving in their personal vehicle. Rates pain at 10/10 and reports she hasn't had pain since about 10 this morning she thinks, but isn't for sure. Objective Patient Orientation: Person, Place, Time, Situation ROM/Strength ROM Lower Extremities Left LE limited all planes due to pain and patient guarding. Right LE WFLs all planes Strength Lower Extremities Right LE 3+/5 all planes; Left LE 3-/5 all planes Integumentary/Posture Bladder Incontinence: Yes Sensory Vision: Functional Hearing: Functional Sensation Right Lower Extremit: Impaired Sensation Left Lower Extremity: Impaired Sensation Lower Extremities Patient reports decreased sensation to light touch in S1, S2 dermatomes. 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 Demonstrates significa nt difficulty putting weight on Left LE and stepping with right LE. Wheelchair Training Does the Pt Use a Wheelchair?: Yes Distance: 50 Wheel 50 ft with 2 turns (QC): 3 Wheel 150 ft (QC): 88 Type of Wheelchair: Manual Stairs #of Steps: 0 1 Step (curb) (QC): 88 4 Steps (QC): 88 12 Steps (QC): 88 Balance Sitting Static: Fair Sitting Dynamic: Poor Standing Static: Poor Standing Dynamic: Poor Picking up an Object (QC): 88 Assessment/Needs Patient demonstrates significant limitations, mostly due to pain. She is unable to generate enough force to lift her left LE out of the vehicle without using UEs. She yells in pain when PT attempts to assist her. Patient ambulates 3 feet with FWW, with max A x 2 and w/c behind her. Patient treatment performed as co-treat with OT from 1355 to 1515 to efficiently treat the patient and to promote both disciplines to provide the greatest benefit for the patient. OT focused on UE strength/ROM, function and bathing while PT focused on LE and core strengthening, gait, w/c management and transfers. Patient propelled w/c 200 feet x 2 with short rest break, with SBA and verbal cues for safety, proper directional guidance of the w/c and using UEs to turn specific directions. Patient requires max A for all transfers and bed mobility. Patient in bed post treatment with all needs met, nursing notified, call light in hand, and in the room. Rehab Potential: Guarded PT Nursing Home Goals Nursing Home Goals PT Screenplay Writer Goals Time Frame: Aug 24, 2022 Roll Left & Right (QC): 4 Sit to Lying (QC): 4 Lying-Sitting on Side/Bed(QC): 4 Sit to Stand (QC): 4 Chair/Off-tl-Ripnt Xfer(QC): 4 Toilet Transfer (QC): 4 Car Transfer (QC): 4 Does the Patient Walk: Yes Walk 10 feet (QC): 4 Walk 50ft with 2 Turns (QC): 4 Walk 150 ft (QC): 3 Walking 10ft on Uneven Surface: 4 1 Step (curb) (QC): 3 4 Steps (QC): 3 12 Steps (QC): 3 Picking up an Object (QC): 4 Does the Pt use WC or Scooter?: Yes Wheel 50 feet with 2 turns (QC: 6 Type: Manual Wheel 150 feet: 6 PT Plan Problem List Problem List: Activity Tolerance, Functional Strength, Safety, Balance, Gait, Transfer, Bed Mobility, ROM Treatment/Plan Treatment Plan: Continue Plan of Care Treatment Plan: Bed Mobility, Education, Functional Activity Singh, Functional Strength, Group Therapy, Gait, Safety, Therapeutic Exercise, Transfers Treatment Duration: Sep 14, 2022 Frequency: At least 5 of 7 days/Wk (IRF) Estimated Hrs Per Day: 1.5 hours per day Patient and/or Family Agrees t: Yes Safety Risks/Education Patient Education: Gait Training, Transfer Techniques, Reviewed Precautions, W/C Management, Safety Issues Teaching Recipient: Patient, Family Teaching Methods: Demonstration, Discussion Response to Teaching: Verbalize Understanding, Return Demonstration Time/GCodes Time In: 1345 Time Out: 1515 Total Billed Treatment Time: 90 Total Billed Treatment Visit, EVM (10) FA (60), W/C (20) Co-Treat with OT from 1355 to 1515 BRENDON RUBY PT Jul 30, 2022 14:15
--- NOTE | 2022-07-30 14:18 | Progress Note ---
PARISHMICHAELA 07/30/22 1418: Progress Note CC: S/P Left Hip Fracture Repair HPI: Patient is a 71 y/o F with history of Arthritis, IDDM, and Stroke presents to inpatient rehab floor after obtaining a left hip fracture on 07/26/22 after falling at home. Prior to her surgical repair on 07/26/22, patient received 1 unit of PRBCs due to her history of chronic iron deficiency anemia. She then received 2 more PRBCs after her surgery on 07/28/22. [facility] her recovery. Her pain is controlled with [place] 7.5mg, Baclofen, and Gabapentin. Today, patient seems to be alert and moving around in her wheelchair. She states she still has some pain in her left lower extremity. PMH: CAD High Cholesterol PVD Stroke GERD Diverticulosis Arthritis IDDM Chronic Iron Deficiency Anemia Rheumatoid Arthritis PSH: Cardiac: CABG x3 Allergies: ciprofloxacin, lates, niacin, nickel Home Meds: Cholecalciferol (Vitamin D3) (D3-2000), 2,000 UNIT PO DAILY, (Reported) Duloxetine HCl (Duloxetine HCl), 90 MG PO DAILY, (Reported) Folic Acid (Folic Acid), 1 MG PO DAILY, (Reported) Hydroxychloroquine Sulfate (Hydroxychloroquine Sulfate), 200 MG PO DAILY, (Reported) Insulin Aspart (Novolog Flexpen), 25 UNITS SQ TIDAC, (Reported) Insulin Degludec (Tresiba Flextouch U-100), 44 UNITS SQ HS, (Reported) Metformin HCl (Metformin HCl), 1,000 MG PO BID, (Reported) Multivitamin (Daily Vitamin Formula), 1 EACH PO DAILY, (Reported) [place]-3 Fatty Acids/Fish Oil ([place] 3 Fish Oil Softgel), 1 EACH PO DAILY, (Reported) Pantoprazole Sodium (Pantoprazole Sodium), 40 MG PO DAILY, (Reported) Rosuvastatin Calcium (Rosuvastatin Calcium), 40 MG PO HS, (Reported) Spironolactone (Spironolactone), 25 MG PO DAILY, (Reported) Sucralfate (Sucralfate), 2 GM PO BID, (Reported) Vitamin E (Dl,Tocopheryl Acet) (Vitamin E), 800 MG PO BID, (Reported) Scheduled PRN Tramadol HCl (Tramadol HCl), 50 MG PO Q6H PRN for PAIN Miscellaneous Medications Semaglutide (Ozempic), Unknown Dose SQ, (Reported) Social History: Former smoker, quit 4.5 years ago Denies EtOH or illicit drug use. Family History: none ROS: denies fever, chills, chest pain, or shortness of breath States she has "muscle spasms" in the left leg with movement. States she has pain throughout the left lower extremity Physical Exam: Heart: Regular Rate, Rhythm, no M/R/Gs no peripheral edema Lungs: CTAB, no accessory muscle use Extremities: Left lower extremity bandaged without drainage, no erythema, some swelling present over the left hip and femur Labs/Imaging: none Assessment: S/P surgical repair of Left Hip Fracture Chronic Iron Deficiency Anemia IDDM History of Arthritis History of RA Plan: Continue to monitor patient labs and Hbg Transfuse if necessary given patient history of chronic anemia PT OT Pain control ADORE IVEY DO 07/31/22 0603: Supervisory-Addendum Brief Verification & Attestation Participated in pt care: history, MDM, physical Personally performed: exam, history, MDM, supervision of care Care discussed with: Medical Student Procedures: n/a Results interpretation: Verified all documentation Verification and Attestation of Medical Student E/M Service A medical student performed and documented this service in my presence. I reviewed and verified all information documented by the medical student and made modifications to such information, when appropriate. I personally performed the physical exam and medical decision making. Adore Ivey Jul 31, 2022,06:03 MICHAELA LUGO Jul 30, 2022 14:18 ADORE IVEY DO Jul 31, 2022 06:03
--- NOTE | 2022-07-30 15:14 | Occupational Therapy Eval ---
OT Evaluation-General/PLF Medical Diagnosis Admission Date Jul 30, 2022 at 13:35 Medical Diagnosis: Left Hip fracture Onset Date: Jul 25, 2022 Therapy Diagnosis Therapy Diagnosis: reduced adl status Height/Weight Height (Feet): 5 Height (Inches): 7.00 Weight (Pounds): 172 Weight (Ounces): 0.0 Precautions Precautions/Isolations: Fall Prevention, Standard Precautions Comments Pt may shower, keep incision dry Weight Bear Status Weight Bearing Restriction: Weight Bearing/Tolerated Location Restriction: L LE Referral Physician: Elaine Referral Reason: Evaluation/Treatment Medical History Pertinent Medical History: CABG, CAD, CVA, DM, Neuropathy Current History Pt presented to [facility] 07/[facility]/22 post fall resulting in L intertrochanteric fx. She is now s/p IM nailing. Pt lives with spouse in a single story home with a ramp entrance. She reports indep with adls, but with difficulty. Her spouse completes all iadls. Pt only able to walk short distances with a walker, otherwise her spouse pushes her around in the w/c. 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 Reviewed History: Yes Social History Home: Single Level Current Living Status: Spouse Entry Into Home: Ramp ADL-Prior Level of Function SCALE: Activities may be completed with or without assistive devices. 0-Reexpvczgf-naaacde completes the activity by him/herself with no assistance from a helper. 5-Set-up or Clean-up Assistance-helper sets up or cleans up; patient completes activity. [place] assists only prior to or following the activity. 4-Supervision or Touching Assistance-helper provides verbal cues and/or touchi ng/steadying and/or contact guard assistance as patient completes activity. Assistance may be provided throughout the activity or intermittently. 3-Partial/Moderate Assistance-helper does LESS THAN HALF the effort. [place] lifts, holds or supports trunk or limbs, but provides less than half the effort. 2-Substantial/Maximal Assistance-helper does MORE THAN HALF the effort. [place] lifts or holds trunk or limbs and provides more than half the effort. 8-Saskyjcxk-bqdddn does ALL the effort. Patient does none of the effort to complete the activity. Or, the assistance of 2 or more helpers is required for the patient to complete the activity. If activity was not attempted, code reason: 7-Patient Refused. 9-Not Applicable-not attempted and the patient did not perform the activity before the current illness, exacerbation or injury. 10-Not Attempted due to Environmental Limitations-(lack of equipment, weather restraints, etc.). 88-Not Attempted due to Medical Conditions or Safety Concerns. Self Care: Independent Functional Cognition: Needed Some Help DME/Equipment: Bath Chair (recently gave her shower chair to a family member, will need to purchase a new one. ), Shower, Tub/Shower, Toilet/[address] Self: Yes OT Current Status Subjective Pt screaming out in pain with very light touch. RN aware. Co-treat with PT ([id number]) secondary to fatigue, poor pain tolerance, high fall risk, poor mobility, impaired balance, anxiety, and need of 2 skilled clinicians to progress indep and safety with adls and functional mobility. Appearance Pt left supine in bed, all needs within reach and spouse in room at therapy departure. Mental Status/Objective Patient Orientation: Person, Place, Situation Current Glasses/Contacts: Yes Hearing Aids: No Dentures/Partials: No Hand Dominance: Right Upper Extremity ROM Pt verbalizes that she cannot raise both of her arms up at the same time or she will "pass out." All joints WFL Upper Extremity Strength 3+/5 grossly ADL-Treatment Eating (QC): 4 Oral Hygiene (QC): 4 Shower/Bathe Self (QC): 1 Upper Body Dressing (QC): 7 Lower Body Dressing (QC): 1 On/Off Footwear (QC): 1 Toileting Hygiene (QC): 1 Pt declines shower due to fatigue from traveling. She was agreeable to sponge bath seated at sink. Post set up, she was able to wash upper body and upper thighs without assist. Due to pain, assist needed to wash from knees down to feet. Max a x2 to stand. Once standing, mod a x1 to maintain balance as 2nd person washed buttocks. Limited weight bearing through LLE notable with all standing tasks. Dependent to don LB clothing as pt required use of BUE's to lift feet off the floor as OT threaded foot into clothing. Again, assist x2 to stand. Pt unable to remove hand from walker to assist with clothing management, thus dependent to pull clothing up to waist. Pt declines donning UB clothing at this time, requests a new gown. She often screams in pain throughout all adls. Cues for relaxation/deep breathing. Pt propelled w/c throughout unit, several cues for propulsion, brake management, and set up prior to transfers. Pt often asks therapist to complete tasks for her before even attempting. When asked to stand, pt replies, "well arn't you guys going to lift me up." Education OT Patient Education: Correct positioning, Disease process, Energy conserva tion, Modified ADL techniques, Progress toward Goal/Update tx plan, Purpose of tx/functional activities, Reviewed precautions, Rehab process, Safety issues, Transfer techniques, W/C management Teaching Recipient: Patient Teaching Methods: Demonstration, Discussion Response to Teaching: Verbalize Understanding, Reinforcement Needed OT Short Term Goals Short Term Goals Time Frame: Aug 13, 2022 Eatin Oral hygiene: 5 Toileting hygiene: 2 Shower/bathe self: 3 Upper body dressin Lower body dressin Putting on/taking off footwear: 2 OT Lath Tier Goals Skilled Nursing Goals Time Frame: Aug 24, 2022 Eating (QC): 6 Oral Hygiene (QC): 6 Toileting Hygiene (QC): 4 Shower/Bathe Self (QC): 5 Upper Body Dressing (QC): 5 Lower Body Dressing (QC): 4 On/Off Footwear (QC): 4 Additional Goals: 1-Demonstrate ADL Tasks, 2-Verbalize Understanding, 3- ImproveStrength/Singh 1=Demonstrate adherence to instructed precautions during ADL tasks. 2=Patient will verbalize/demonstrate understanding of assistive devices/modifications for ADL. 3=Patient will improve strength/tolerance for activity to enable patient to perform ADL's. OT Education/Plan Problem List/Assessment Assessment: Decreased Activ Tolerance, Decreased Safety Aware, Decreased UE Strength, Dependent Transfers, Impaired Bed Mobility, Impaired Cognition, Impaired Funct Balance, Impaired Self-Care Skills Discharge Recommendations Plan/Recommendations: Continue POC Therapy Discharge Recommendati: Post Acute OT Equpiment Recommendations-D/C: Display Decorator, Hip Kit, Sock Aide Treatment Plan/Plan of Care Treatment,Training & Education: Yes Patient would benefit from OT for education, treatment and training to promote independence in ADL's, mobility, safety and/or upper extremity function for ADL's. Plan of Care: ADL Retraining, Caregiver Training, Cognitive Retraining, Concurrent Therapy, Functional Mobility, Group Exercise/Act as Ind, UE Funct Exercise/Act, W/C Management Training Treatment Duration: Aug 24, 2022 Frequency: At least 5 of 7 days/Wk (IRF) Estimated Hrs Per Day: 1.5 hours per day (75-90 min/day) Agreement: Yes Rehab Potential: Guarded Time/GCodes Start Time: 13:35 Stop Time: 15:15 Total Time Billed (hr/min): 90 Billed Treatment Time 1 visit EVH (10 min) ADL x3 (50 min) FA x2 (30 min) OT eval: [id number] PT eval: [id number] Co-treat: [id number] Jennifer Hand OT Jul 30, 2022 15:14
[2022-07-30 15:24] VITALS: BP 136/69
[2022-07-30] MEDS ORDERED: PATIENT MAY USE OWN MED,SINGLE MED PO SCH (15:30)
[2022-07-30] MEDS ORDERED: NON-FORMULARY MEDICATION 1 EA EA (Insulin Lispro (Humalog Kwikpen) 5 UNIT) SQ SCH (17:00)
[2022-07-30] MEDS: inSUlin ASPART (NovoLOG) 1 UNIT/0.01 ML (CHARGE PER UNIT) SQ SCH (17:38)
[2022-07-30] MEDS: metFORMIN 500 MG (GLUCOPHAGE) TAB PO SCH (17:38)
[2022-07-30 20:29] VITALS: BP 135/71
[2022-07-30] MEDS ORDERED: NON-FORMULARY MEDICATION 1 EA EA (Insulin Glargine,Hum.rec.anlog (Lantus) 20 UNIT) SQ SCH (21:00)
[2022-07-30] MEDS ORDERED: NON-FORMULARY MEDICATION 1 EA EA (Duloxetine HCl 60 MG) PO SCH (21:00)
[2022-07-30] MEDS ORDERED: NON-FORMULARY MEDICATION 1 EA EA (Rosuvastatin Calcium 40 MG) PO SCH (21:00)
[2022-07-30] MEDS ORDERED: DULoxetine 30 MG (CYMBALTA) CAP PO SCH (21:00)
[2022-07-30] MEDS ORDERED: NON-FORMULARY MEDICATION 1 EA EA (Omega-3/Dha/Epa/Fish Oil (Fish Oil 1,200 mg Softgel) 1,2 PO SCH (21:00)
[2022-07-30] MEDS ORDERED: BACLOFEN 5 MG PO SCH (21:00)
[2022-07-30] MEDS ORDERED: NON-FORMULARY MEDICATION 1 EA EA (Metformin HCl 1,000 MG) PO SCH (21:00)
[2022-07-30] MEDS: morphine ER 15 MG (MS CONTIN) TAB PO SCH (21:12)
[2022-07-30] MEDS: BACLOFEN 10 MG (LIORESAL) TAB PO SCH (21:12)
[2022-07-30] MEDS: DULoxetine 30 MG (CYMBALTA) CAP PO SCH (21:12)
[2022-07-30] MEDS: PANTOPRAZOLE 40 MG (PROTONIX) TAB PO SCH (21:12)
[2022-07-30] MEDS: ROSUVASTATIN 20 MG (CRESTOR) TABLET PO SCH (21:12)
[2022-07-30] MEDS: GABAPENTIN 100 MG (NEURONTIN) CAP PO SCH (21:13)
[2022-07-30] MEDS: OMEGA 3 (FISH OIL) 1000 MG CAP PO SCH (21:13)
[2022-07-30] MEDS: SUCRALFATE 1 GM (CARAFATE) TAB PO SCH (21:13)
[2022-07-30] MEDS: DOCUSATE SODIUM 100 MG (COLACE) CAP PO SCH (21:44)
[2022-07-30] MEDS: polyethylene glycoL POWDER 17 GM (MIRALAX) PACK PO SCH (21:45)
[2022-07-30] MEDS: SENNA W/DOCUSATE (SENOKOT S) TABLET PO SCH (21:45)
[2022-07-31 06:02] LABS: MEAN PLATELET VOLUME 10.1 fL (9.0-12.2); MONOCYTES # (AUTO) 0.7 10^3/uL (0.0-1.0)
[2022-07-31 06:11] LABS: BASOPHILS % (AUTO) 0 % (0-10); EOSINOPHILS # (AUTO) 0.2 10^3/uL (0.0-0.3); EOSINOPHILS % (AUTO) 3 % (0-10); HEMATOCRIT 29 % (35-52); HEMOGLOBIN 9.1 g/dL (11.5-16.0); LYMPHOCYTES # (AUTO) 1.1 10^3/uL (1.0-4.0); LYMPHOCYTES % (AUTO) 19 % (12-44); MEAN CORPUSCULAR HEMOGLOBIN 29 pg (25-34); MEAN CORPUSCULAR HGB CONC 32 g/dL (32-36); MEAN CORPUSCULAR VOLUME 90 fL (80-99); MONOCYTES % (AUTO) 12 % (0-12); NEUTROPHILS # (AUTO) 3.7 10^3/uL (1.8-7.8); NEUTROPHILS % (AUTO) 66 % (42-75); PLATELET COUNT 119 10^3/uL (130-400); WHITE BLOOD COUNT 5.7 10^3/uL (4.3-11.0)
--- NOTE | 2022-07-31 06:23 | PM&R Progress Note ---
Subjective HPI/CC On Admission Date Seen by Provider: Jul 31, 2022 Time Seen by Provider: 08:30 Subjective/Events-last exam 07/31/2022: Patient doing fairly well Pain is an issue and I had started the long acting MSO4 which seems to have helped No falls Took shower No other issues Review of Systems General: Fatigue, Malaise Musculoskeletal: leg pain Objective Exam Vital Signs Vital Signs Date Time Temp Pulse Resp B/P (MAP) Pulse Ox O2 Delivery O2 Flow Rate FiO2 07/31/22 21:55 Room Air 07/31/22 20:52 36.2 91 20 111/68 (82) 93 Capillary Refill : General Appearance: No Apparent Distress, WD/WN, Chronically ill HEENT: PERRL/EOMI, Normal ENT Inspection, Pharynx Normal Neck: Full Range of Motion, Normal Inspection, Non Tender, Supple, Carotid Bruit Respiratory: Chest Non Tender, Lungs Clear, Normal Breath Sounds, No Accessory Muscle Use, No Respiratory Distress Cardiovascular: Regular Rate, Rhythm, No Edema, No Gallop, No JVD, No Murmur, Normal Peripheral Pulses Gastrointestinal: Normal Bowel Sounds, No Organomegaly, No Pulsatile Mass, Non Tender, Soft Back: Normal Inspection, No CVA Tenderness, No Vertebral Tenderness Extremity: Normal Capillary Refill, Normal Inspection, Normal Range of Motion (except left leg), Non Tender, No Calf Tenderness, No Pedal Edema Neurologic/Psychiatric: Alert, Oriented x3, No Motor/Sensory Deficits, Normal Mood/Affect, Abnormal Gait, Motor Weakness (left leg) Skin: Normal Color, Warm/Dry Lymphatic: No Adenopathy Results/Procedures Lab Laboratory Tests 07/31/22 05:55 Patient resulted labs reviewed. FIM Transfers Therapy Code Descriptions/Definitions Functional [place] Measure: 0=Not Assessed/NA 4=Minimal Assistance 1=Total Assistance 5=Supervision or Setup 2=Maximal Assistance 6=Modified [place] 3=Moderate Assistance 7=Complete IndependenceSCALE: Activities may be completed with or without assistive devices. 3-Gehaqvvgbv-iewfpfc completes the activity by him/herself with no assistance from a helper. 5-Set-up or Clean-up Assistance-helper sets up or cleans up; patient completes activity. [place] assists only prior to or following the activity. 4-Supervision or Touching Assistance-helper provides verbal cues and/or touching/steadying and/or contact guard assistance as patient completes activit y. Assistance may be provided throughout the activity or intermittently. 3-Partial/Moderate Assistance-helper does LESS THAN HALF the effort. [place] lifts, holds or supports trunk or limbs, but provides less than half the effort. 2-Substantial/Maximal Assistance-helper does MORE THAN HALF the effort. [place] lifts or holds trunk or limbs and provides more than half the effort. 4-Zpomxcpek-hovfru does ALL the effort. Patient does none of the effort to complete the activity. Or, the assistance of 2 or more helpers is required for the patient to complete the activity. If activity was not attempted, code reason: 7-Patient Refused. 9-Not Applicable-not attempted and the patient did not perform the activity before the current illness, exacerbation or injury. 10-Not Attempted due to Environmental Limitations-(lack of equipment, weather restraints, etc.). 88-Not Attempted due to Medical Conditions or Safety Concerns. Roll Left to Right (QC): 2 Sit to Lying (QC): 2 Sit to Stand (QC): 2 Chair/Wpt-na-Nhmhl Xfer(QC): 2 Car Transfer (QC): 2 Gait Training Does the Patient Walk?: Yes Walk 10 feet (QC): 88 Walk 50 ft with 2 Turns(QC): 88 Walk 150 ft (QC): 88 Walking 10ft/uneven surface-QC: 88 Gait Assistive Device: FWW Wheelchair Training Does the Pt Use a Wheelchair?: Yes Distance: 50 Wheel 50 ft with 2 turns (QC): 3 Wheel 150 ft (QC): 88 Type of Wheelchair: Manual Stair Training #of Steps: 0 1 Step (curb) (QC): 88 4 Steps (QC): 88 12 Steps (QC): 88 Balance Picking up an Object (QC): 88 ADL-Treatment Eating (QC): 4 Oral Hygiene (QC): 4 Shower/Bathe Self (QC): 1 Upper Body Dressing (QC): 7 Lower Body Dressing (QC): 1 On/Off Footwear (QC): 1 Toileting Hygiene (QC): 1 Assessment/Plan Assessment and Plan Assess & Plan/Chief Complaint Assessment: s/p left hip fracture repair Acute on chronic severe pain managed as outpatient by pain medical management specialist CVA hx RA DM HTN CAD previous CABG GIB hx Post op anemia s/p 3 units of blood Iron deficiency Acute hypokalemia Plan: PT OT Pain control BM regimen Fall risk 07/31/2022: Replace potassium Supportive care (1) Intertrochanteric fracture of left hip Status: Acute (2) Iron deficiency anemia EDY IVEY DO Jul 31, 2022 06:23
--- NOTE | 2022-07-31 06:24 | Individualized Plan of Care ---
Individualized Plan of Care Rehab Nursing IPOC Order Admission Date Jul 30, 2022 at 13:35 Current Orders Orders Admission Order(Inpt,Obs,Sdc) (07/30/22 10:34) Vital Signs: Per Unit Policy ( 08,16,00 (07/30/22 10:34) Kaushik Christian , (07/30/22 10:34) Sequential Compression Device (07/30/22 10:34) House Carpenter-Inpt Rehab Con (07/30/22 10:34) Rehab Nursing Orders-Ipoc (07/30/22 10:34) Physical Therapy Rehab Orders (07/30/22 10:34) Occupational Therapy Rehab Ord (07/30/22 10:34) Speech Therapy Rehab Orders (07/30/22 10:34) Cbc With Automated Diff (07/31/22 06:00) Comprehensive Metabolic Panel (07/31/22 06:00) Precautions (Aru) (07/30/22 10:34) Weekly Weight WEEK (07/30/22 10:34) Rehab-Intensity Of Therapy (07/30/22 10:34) Initiate Admission Nursing Pro .admission (07/30/22 10:34) Alprazolam Tablet (Xanax Tablet) (07/30/22 10:45) Calcium Carbonate Chew Tablet (Antacid C (07/30/22 10:45) Diphenhydramine Tablet (Benadryl Tablet) (07/30/22 10:45) Docusate Sodium Capsule (Colace Capsule) (07/30/22 21:00) Docusate Sodium Capsule (Colace Capsule) (07/30/22 10:45) Bisacodyl Suppository (Dulcolax Supposit (07/30/22 10:45) Lactulose Oral Solution (Enulose Oral So (07/30/22 10:45) Na Phos/Na Biphos Enema (Fleet Enema Edison (07/30/22 10:45) Guaifenesin/Codeine Syrup (Robitussin Ac (07/30/22 10:45) Loperamide Tablet (Imodium Tablet) (07/30/22 10:45) Melatonin Tablet (Melatonin Tablet) (07/30/22 10:45) Polyethylene Glycol Powder Pkt (Miralax (07/30/22 21:00) Ondansetron Oral Dissolve Tab (Zofran (07/30/22 10:45) Senna S Tablet (Senokot S Tablet) (07/30/22 21:00) Acetaminophen Tablet/Caplet (Tylenol T (07/30/22 10:45) Initiate Admission Nursing Pro .admission (07/30/22 10:34) Follow-Up Appointment (07/30/22 13:28) Admission Arrival Bed Request (07/30/22 13:46) Cetirizine (Non-Formulary) (Zyrtec (Non- (07/31/22 09:00) Duloxetine Capsule (Cymbalta Capsule) (07/30/22 21:00) Folic Acid Tablet (Folic Acid Tablet) (07/31/22 09:00) Gabapentin Capsule/Tablet (Neurontin Cap (07/30/22 21:00) Hydrocodone/Apap 10/325 Tablet (Lortab 1 (07/30/22 15:30) Hydroxychloroquine Sulfate (Plaquenil) (07/31/22 07:00) Pantoprazole Tablet (Protonix Tablet) (07/30/22 21:00) Sucralfate Tablet (Carafate Tablet) (07/30/22 21:00) (Nf) Baclofen (07/30/22 21:00) (Nf) Cholecalciferol (Vitamin D3) (Vitam (07/31/22 09:00) (Nf) Duloxetine Hcl (07/30/22 21:00) (Nf) Insulin Glargine,Hum.Rec.Anlog (Elias (07/30/22 21:00) (Nf) Insulin Lispro (Humalog Kwikpen) (07/30/22 17:00) (Nf) Metformin Hcl (07/30/22 21:00) (Nf) Multivitamin With Minerals (One Rajwinder (07/31/22 09:00) (Nf) [place]-3/Dha/Epa/Fish Oil (Fish Oil (07/30/22 21:00) (Nf) Rosuvastatin Calcium (07/30/22 21:00) Patient May Use Own Med,Single (Patient (07/30/22 15:30) Cho 60g/M 1snack (16-2000 Maximino) (07/30/22 Lunch) Nursing Communication (Order) (07/30/22 16:17) Loratadine Tablet (Claritin Tablet) (07/31/22 09:00) Duloxetine Capsule (Cymbalta Capsule) (07/30/22 21:00) Hydrocodone/Apap 10/325 Tablet (Lortab 1 (07/30/22 15:57) Therapeutic Multivitamin Tab (Vitamins, (07/31/22 07:00) Baclofen Tablet (Lioresal Tablet) (07/30/22 21:00) Rosuvastatin Tablet (Crestor Tablet) (07/30/22 21:00) Cholecalciferol Capsule/Tablet (Vitamin (07/31/22 09:00) [place] 3 Capsule (Fish Oil Capsule) (07/30/22 21:00) Metformin Tablet (Glucophage Tablet) (07/30/22 18:00) Insulin Determir (Per Unit) (Levemir (Pe (07/30/22 21:00) Insulin Aspart (Novolog) (Novolog (Charg (07/30/22 17:30) Morphine Er Tablet (Ms Contin Tablet) (07/30/22 21:00) Iron Test (Fe) (07/31/22 06:23) Vitamin B 12 (07/31/22 06:23) Vte Contraindication (07/31/22 06:26) Potassium Chloride (Tablet) (Klor Con Ta (07/31/22 08:00) Patient Visit (07/31/22 ) Speech Sound Lang Comp (07/31/22 ) Treat. Speech/Lang/Voice (07/31/22 ) Patient Visit (07/31/22 ) Exercise Therap, Ea 15 Min (07/31/22 ) Wheelchair Mgmt/Propulsn 15min (07/31/22 ) Gait Training, Ea 15 Min (07/31/22 ) Rehab Nursing Orders: Ongoing Assess. of Cognitive Status, Ongoing Assess. of Function Status, Bladder Management, Bladder Scan, Bladder Training, Bowel Management, Bowel Training, Disease Management & Educaiton, DVT Prophylaxis, Fall Prevention, Fluid/Electrolyte/Nutrition Mgmt, Infection Prevention, Medication Management & Education, Management of Risks & Complications, Management of Skin Intergrity, Nutrition Management, Pain Management, Patient/Family Support, Safety Management, Weight Bearing Precaution, Wound Management Intensity of Therapy to be met Patient to be seen: Min.3h per day/5 of 7d PT IPOC Problem List: Activity Tolerance, Functional Strength, Safety, Balance, Gait, Transfer, Bed Mobility, ROM Treatment Plan: Continue Plan of Care Bed Mobility, Education, Functional Activity Singh, Functional Strength, Group Therapy, Gait, Safety, Therapeutic Exercise, Transfers Treatment Duration: Sep 14, 2022 Frequency: At least 5 of 7 days/Wk (IRF) Estimated Hrs Per Day: 1.5 hours per day OT IPOC Problems: Decreased Activ Tolerance, Decreased Safety Aware, Decreased UE Strength, Dependent Transfers, Impaired Bed Mobility, Impaired Cognition, Impaired Funct Balance, Impaired Self-Care Skills OT Treatment, Training and Edu: Yes Plan of Care: ADL Retraining, Caregiver Training, Cognitive Retraining, Concurrent Therapy, Functional Mobility, Group Exercise/Act as Ind, UE Funct Exercise/Act, W/C Management Training Treatment Duration: Aug 24, 2022 Frequency: At least 5 of 7 days/Wk (IRF) Estimated Hrs Per Day: 1.5 hours per day (75-90 min/day) ST IPOC Speech Therapy Treatment Plan: Discontinue ST Treatment Duration: Jul 31, 2022 Frequency: Modified Program (IRF) Estimated Hrs Per Day: Other House Carpenter/Case Mgmt House Carpenter/Case Managemen: Discharge Planning Dietitian/Psychiatric Social Worker Supervisor Dietitian/Psychiatric Social Worker Supervisor to monitor nutritional status and make changes and/or recommendations as needed and work with speech pathology on dietary upgrades as the occur. Physician IPOC Medical Issues being managed closely and that require the 24 hour availability of a physician: Recent hip fracture with h/o 3 units of blood transfusion and h/o GIB will require close monitoring of hgb and any evidence of decompensation Medical Issues: Bowel/Bladder Function, DVT Prophylaxis, Falls Precautions, Fluid/Electrolyte/Nutrition Balance, Infection Protection, Pain Management, Weight Bearing Precautions, Wound Care Brief Synthesis of Preadmission Screen, Post-Admission Evaluation, and Therapy Evaluations: PT OT will focus on regaining function with use of AD like wheelchair and improve ROM left leg and decrease fall risks and help regain independence Medical Prognosis: Good Anticipated Length of Stay: 7 days EDY IVEY DO Jul 31, 2022 06:24
[2022-07-31 06:26] LABS: ALBUMIN 3.2 GM/DL (3.2-4.5)
[2022-07-31 06:27] LABS: CALCIUM 8.6 MG/DL (8.5-10.1)
[2022-07-31 06:28] LABS: TOTAL PROTEIN 6.1 GM/DL (6.4-8.2)
[2022-07-31 06:30] LABS: BILIRUBIN,TOTAL 1.1 MG/DL (0.1-1.0)
[2022-07-31 06:32] LABS: CREATININE SERUM 0.77 MG/DL (0.60-1.30)
[2022-07-31] MEDS: HYDROXYCHLOROQUINE 200 MG (PLAQUENIL) TAB PO SCH (07:05)
[2022-07-31] MEDS: MULTIVIT W/MINERALS TAB (THERAGRAN M) PO SCH (07:05)
[2022-07-31] MEDS: inSUlin ASPART (NovoLOG) 1 UNIT/0.01 ML (CHARGE PER UNIT) SQ SCH ×3 (07:06→17:47)
[2022-07-31 07:38] VITALS: BP 114/70
[2022-07-31] MEDS: morphine ER 15 MG (MS CONTIN) TAB PO SCH ×2 (08:18→21:56)
[2022-07-31] MEDS: metFORMIN 500 MG (GLUCOPHAGE) TAB PO SCH ×2 (08:18→17:47)
[2022-07-31] MEDS: GABAPENTIN 100 MG (NEURONTIN) CAP PO SCH ×3 (08:18→21:56)
[2022-07-31] MEDS: VITAMIN D3 25 MCG (1,000 UNITS) TABLET PO SCH (08:19)
[2022-07-31] MEDS: KCL 10 MEQ TAB (MICRO K) PO SCH ×3 (08:19→17:47)
[2022-07-31] MEDS: FOLIC ACID 1 MG TAB PO SCH (08:19)
[2022-07-31] MEDS: LORATADINE (CLARITIN) 10 MG TAB PO SCH (08:19)
[2022-07-31] MEDS: PANTOPRAZOLE 40 MG (PROTONIX) TAB PO SCH ×2 (08:19→21:56)
[2022-07-31] MEDS: BACLOFEN 10 MG (LIORESAL) TAB PO SCH ×3 (08:20→21:56)
[2022-07-31] MEDS: OMEGA 3 (FISH OIL) 1000 MG CAP PO SCH ×2 (08:20→21:55)
[2022-07-31] MEDS: DOCUSATE SODIUM 100 MG (COLACE) CAP PO SCH ×2 (08:20→21:00)
[2022-07-31] MEDS: SUCRALFATE 1 GM (CARAFATE) TAB PO SCH ×2 (08:20→21:56)
[2022-07-31] MEDS ORDERED: [UNRECOGNIZED DRUG - OTHER] PO SCH (09:00)
[2022-07-31] MEDS ORDERED: NON-FORMULARY MEDICATION 1 EA EA (Cholecalciferol (Vitamin D3) (Vitamin D3) 25 MCG) PO SCH (09:00)
[2022-07-31] MEDS ORDERED: CETIRIZINE HCL (ZYRTEC) 10 MG TAB PO SCH (09:00)
--- NOTE | 2022-07-31 09:12 | Occupational Ther Daily Note ---
OT Current Status-Daily Note Subjective Pt was in bed upon arrival. She agreed to skilled OT and stated she would like to take a shower. She c/o of pain throughout entire session with screams and moans. She is slightly aggressive throughout treatment, getting upset with therapist's cues. Appearance Pt was left in w/c with all needs within reach. Mental Status/Objective Patient Orientation: Person, Confused, Place, Situation Attachments: IV (Port) ADL-Treatment Therapy Code Descriptions/Definitions Functional [place] Measure: 0=Not Assessed/NA 4=Minimal Assistance 1=Total Assistance 5=Supervision or Setup 2=Maximal Assistance 6=Modified [place] 3=Moderate Assistance 7=Complete IndependenceSCALE: Activities may be completed with or without assistive devices. 2-Kuqjrhgpth-oxauudu completes the activity by him/herself with no assistance from a helper. 5-Set-up or Clean-up Assistance-helper sets up or cleans up; patient completes activity. Tanana assists only prior to or following the activity. 4-Supervision or Touching Assistance-helper provides verbal cues and/or touching/steadying and/or contact guard assistance as patient completes activity. Assistance may be provided throughout the activity or intermittently. 3-Partial/Moderate Assistance-helper does LESS THAN HALF the effort. Tanana lifts, holds or supports trunk or limbs, but provides less than half the effort. 2-Substantial/Maximal Assistance-helper does MORE THAN HALF the effort. Tanana lifts or holds trunk or limbs and provides more than half the effort. 9-Oixnwkuuu-wkunde does ALL the effort. Patient does none of the effort to complete the activity. Or, the assistance of 2 or more helpers is required for the patient to complete the activity. If activity was not attempted, code reason: 7-Patient Refused. 9-Not Applicable-not attempted and the patient did not perform the activity before the current illness, exacerbation or injury. 10-Not Attempted due to Environmental Limitations-(lack of equipment, weather restraints, etc.). 88-Not Attempted due to Medical Conditions or Safety Concerns. Shower/Bathe Self (QC): 3 Upper Body Dressing (QC): 5 Lower Body Dressing (QC): 1 On/Off Footwear: 1 Toileting Hygiene (QC): 1 Toilet Transfer (QC): 1 Pt completed sit to stand transfers with max assist x2. Several cues for upright posture as she remains in flexed trunk position during standing. Step by step cues on where to place feet and hands during transfers. Shower performed 100% in sitting with min assist for buttocks. OT issued and instructed pt on long handled sponge, post education, pt able to wash lower body without physical assist. Pt unable to dry lower legs/feet. Dependent for lower body dressing due to fatigue, time constraints and lack of ROM. At this time, pt unable to use cleaner and preparer as she requires both UE's to lift foot off of floor. Dependent for clothing management as pt requires max assist x2. Education OT Patient Education: Correct positioning, Energy conservation, Modified ADL techniques, Progress toward Goal/Update tx plan, Purpose of tx/functional activities, Reviewed precautions, Rehab process, Safety issues, Transfer techniques, Use of adapted equipment, W/C management Teaching Recipient: Patient Teaching Methods: Demonstration, Discussion Response to Teaching: Verbalize Understanding, Return Demonstration, Reinforcement Needed OT Short Term Goals Short Term Goals Time Frame: Aug 13, 2022 Eatin Oral hygiene: 5 Toileting hygiene: 2 Shower/bathe self: 3 Upper body dressin Lower body dressin Putting on/taking off footwear: 2 OT Care Home Goals Lithograph Press Operator Tinware Goals Time Frame: Aug 24, 2022 Eating (QC): 6 Oral Hygiene (QC): 6 Toileting Hygiene (QC): 4 Shower/Bathe Self (QC): 5 Upper Body Dressing (QC): 5 Lower Body Dressing (QC): 4 On/Off Footwear (QC): 4 Additional Goals: 1-Demonstrate ADL Tasks, 2-Verbalize Understanding, 3- ImproveStrength/Singh 1=Demonstrate adherence to instructed precautions during ADL tasks. 2=Patient will verbalize/demonstrate understanding of assistive devices/modifications for ADL. 3=Patient will improve strength/tolerance for activity to enable patient to perform ADL's. OT Education/Plan Problem List/Assessment Assessment: Decreased Activ Tolerance, Decreased Safety Aware, Decreased UE Strength, Dependent Transfers, Edema, Impaired Bed Mobility, Impaired Cognition, Impaired Coordination, Impaired Funct Balance, Impaired I ADL's, Impaired Self- Care Skills, Restricted Funct UE ROM Discharge Recommendations Plan/Recommendations: Continue POC Therapy Discharge Recommendati: Assisted Living, Bath Aide Equpiment Recommendations-D/C: Toilet Riser with Rails, Sock Aide Treatment Plan/Plan of Care Treatment,Training & Education: Yes Patient would benefit from OT for education, treatment and training to promote independence in ADL's, mobility, safety and/or upper extremity function for ADL's. Plan of Care: ADL Retraining, Caregiver Training, Cognitive Retraining, Concurrent Therapy, Functional Mobility, Group Exercise/Act as Ind, UE Funct Exercise/Act, W/C Management Training Treatment Duration: Aug 24, 2022 Frequency: At least 5 of 7 days/Wk (IRF) Estimated Hrs Per Day: 1.5 hours per day (75-90 min/day) Agreement: Yes Rehab Potential: Guarded Time/GCodes Start Time: 07:45 Stop Time: 09:00 Total Time Billed (hr/min): 75 Billed Treatment Time 1 visit ADL x5 Jennifer Hand OT Jul 31, 2022 09:12
[2022-07-31] MEDS: polyethylene glycoL POWDER 17 GM (MIRALAX) PACK PO SCH ×2 (09:21→21:00)
[2022-07-31] MEDS: SENNA W/DOCUSATE (SENOKOT S) TABLET PO SCH ×2 (09:21→21:00)
--- NOTE | 2022-07-31 09:52 | Physical Therapy Daily Note ---
PT Daily Note-Current Subjective Pt sitting in [facility] visiting w/SW upon arrival. Pt agrees to PT but reports 5/10 pain with rest & 10/10 pain with movement. Pain medicine given shortly before tx. Pain Numeric Pain Scale: 10-Worst Possible Pain Location: Left Location Body Site: Hip Pain Description: Stabbing, Sharp Comment: 5/10 with rest & 10/10 with movement Mental Status Patient Orientation: Person, Place, Situation Transfers SCALE: Activities may be completed with or without assistive devices. 4-Xbakvchjgg-pnmbfsb completes the activity by him/herself with no assistance from a helper. 5-Set-up or Clean-up Assistance-helper sets up or cleans up; patient completes activity. Shelby assists only prior to or following the activity. 4-Supervision or Touching Assistance-helper provides verbal cues and/or touching/steadying and/or contact guard assistance as patient completes activity. Assistance may be provided throughout the activity or intermittently. 3-Partial/Moderate Assistance-helper does LESS THAN HALF the effort. Shelby lifts, holds or supports trunk or limbs, but provides less than half the effort. 2-Substantial/Maximal Assistance-helper does MORE THAN HALF the effort. Shelby lifts or holds trunk or limbs and provides more than half the effort. 5-Rdeygmptn-jwfhxl does ALL the effort. Patient does none of the effort to complete the activity. Or, the assistance of 2 or more helpers is required for the patient to complete the activity. If activity was not attempted, code reason: 7-Patient Refused. 9-Not Applicable-not attempted and the patient did not perform the activity before the current illness, exacerbation or injury. 10-Not Attempted due to Environmental Limitations-(lack of equipment, weather restraints, etc.). 88-Not Attempted due to Medical Conditions or Safety Concerns. Roll Left & Right (QC): 1 Sit to Lying (QC): 1 Sit to Stand (QC): 1 Weight Bearing Right Lower Extremity: Right Full Weight Bearing Left Lower Extremity: Left Weight Bearing/Tolerated Gait Training Does the Patient Walk?: Yes Distance: 3' x2 Gait Persons Needed: 2 Gait Assistive Device: FWW Mod A with walking and VC for sequencing for encouragement. Pt can only tolerate very short distance walking. Wheelchair Training Does the Pt Use a Wheelchair?: Yes Wheel 50 ft with 2 turns (QC): 5 Wheel 150 ft (QC): 5 Type of Wheelchair: Manual Exercises Seated Therapy Exercises: Ankle pumps, Long arc quads, Hip flexion Seated Reps: 10 Treatments [id number]: Pt completes Seated EX in [facility] until ST arrives for tx. All needs met. [id number]: Pt finishes phone call with Dr amezcua for missed appts. Pt declines need for BR. Pt propels [facility] in hallway before taking RB. Pt completes 3 sit to stands and amb. 2 times of 3-4' each time. Pt returns to [facility] between each stand and amb. Pt propels [facility] back to room and asks to return to bed. Pt TF from [facility] to EOB then Supine with Max A x2. Pt resting with all needs met, call light in hand. Assessment Current Status: Poor Progress Pt continues to need encouragement to push self as pt and Sp self limit. VC for sequencing and safety. PT Sergeant At Arms Goals Sergeant At Arms Goals PT Sergeant At Arms Goals Time Frame: Aug 24, 2022 Roll Left & Right (QC): 4 Sit to Lying (QC): 4 Lying-Sitting on Side/Bed(QC): 4 Sit to Stand (QC): 4 Chair/Eyp-hd-Exban Xfer(QC): 4 Toilet Transfer (QC): 4 Car Transfer (QC): 4 Does the Patient Walk: Yes Walk 10 feet (QC): 4 Walk 50ft with 2 Turns (QC): 4 Walk 150 ft (QC): 3 Walking 10ft on Uneven Surface: 4 1 Step (curb) (QC): 3 4 Steps (QC): 3 12 Steps (QC): 3 Picking up an Object (QC): 4 Does the Pt use WC or Scooter?: Yes Wheel 50 feet with 2 turns (QC: 6 Type: Manual Wheel 150 feet: 6 PT Plan Problem List Problem List: Activity Tolerance, Functional Strength, Safety, Gait, Transfer Treatment/Plan Treatment Plan: Continue Plan of Care Treatment Plan: Bed Mobility, Education, Functional Activity Singh, Functional Strength, Group Therapy, Gait, Safety, Therapeutic Exercise, Transfers Treatment Duration: Sep 14, 2022 Frequency: At least 5 of 7 days/Wk (IRF) Estimated Hrs Per Day: 1.5 hours per day Patient and/or Family Agrees t: Yes Safety Risks/Education Patient Education: Gait Training, Transfer Techniques, Correct Positioning, Safety Issues Teaching Recipient: Patient Teaching Methods: Discussion Response to Teaching: Verbalize Understanding Time/GCodes Time In: 915 Time Out: 945 Total Billed Treatment Time: 30 Total Billed Treatment [id number]: 1, EX x2 (30m) [id number]: 1, WCH (20m) & GT x2 (25m) JHONNY VERNON TEST ENGINEERING MANAGER Jul 31, 2022 09:52
--- NOTE | 2022-07-31 12:27 | ST Cognitive Linguistic Eval ---
Speech Evaluation-General Medical Diagnosis Left Hip Fracture Onset Date: Jul 25, 2022 Therapy Diagnosis Therapy Diagnosis: Intact Neurocognitive Skills Precautions Precautions: Fall, Pressure Ulcer, Hip Precautions/Isolations: Fall Prevention, Standard Precautions, Pressure Ulcer Referral Referring Physician: Dr. Henry Reason for Referral: Evaluation/Treatment Medical History Pertinent Medical History: CABG, CAD, CVA, DM, Neuropathy Current History The patient is a 71 year-old female with a past medical history of arthritis, diabetes, and stroke presented to the inpatient rehabilitation floor after obtaining a left hip fracture on 07/26/22 after falling at home. Reviewed History: Yes Social History Current Living Status: Spouse Speech PLF-Current Status Prior Level of Function The patient denied prior challenges with her speech, language, or cognition. The patient reports baseline status. As the clinician is familiar with the patient, the clinician informally observes baseline behaviors throughout informal conversation. Subjective The patient was seated upright in her wheelchair awake and alert upon entrance to her room by the clinician. The patient greeted the clinician appropriately and was agreeable to participation in the cognitive linguistic assessment. Language Eval: Auditory Comprehends Simple Yes/No Ques: Functional Indent/Objects Multiple Noel: Functional Ident/Pics in Multiple Noel: Functional Follows 1-Step Commands: Functional Follows General Conversations: Functional Language Eval: Verbal Language Completes Spontaneous Greeting: Functional Produces Auto, Serial Info: Functional Imitates Simple Words/Phrases: Functional Word Finding: Functional Requests Basic Needs: Functional States Basic Personal Info: Functional Language Evaluation: Writing Writes to Simple Dictation: Functional Cognitive Patient Orientation The patient was independently oriented to self, location, month, day of the week, date and year. Objective Cognitive Domain Attention: Mild Memory: Mild Problem Solving: Mild Visuospatial Skills: WNL Composite Severity Rating: WNL Clock Drawing Severity Rating: WNL The patient's minimal to mild deficits in problem solving and memory appear secondary to the patient's baseline impulsive behavior. Objective Formal/Standardized Tests [facility] Mental Status Exam (UMS) Results The patient demonstrated a result of +29/30 on the SLUMS correlating to cognit agnieszka linguistic skills within normal limits. The patient does require frequent redirection throughout the assessment for completion of tasks. Oral Motor/Speech Production The patient does not display dysarthria or apraxia of speech. The patient is 100% intelligible in known and unknown contexts. Impression The patient displays cognitive linguistic skills within normal limits. The patient does require frequent redirection throughout the assessment for completion of tasks secondary to baseline impulsive behaviors. Speech Patient Assess Expression of Ideas/Wants: Expression (4) Understanding Verbal Content: Understands (4) Brief Interview-Mental Status: Yes Repetition of Three Words: Three (3) Temporal Orientation: Year: Correct (3) Temporal Orientation: Month: Accurate within 5 days(2) Temporal Orientation: Day: Correct (1) Recall : Wear to say "Sock": Yes, no cue required (2) Recall : Color: Yes, no cue required (2) Recall : Bed: Yes,after cueing (1) Memory/Recall Ability: Current season, That he or she is in a hsp/hsp unit Speech-Plan Treatment Plan Speech Therapy Treatment Plan: Discontinue ST Treatment Duration: Jul 31, 2022 Frequency: 1 time per week Estimated Hrs Per Day: .5 hour per day Rehab Potential: Guarded Safety Risks/Education Teaching Recipient: Patient Teaching Methods: Discussion Response to Teaching: Verbalize Understanding Education Topics Provided: Results of SLUMS, Recommendations, Plan of Care Time Speech Therapy Time In: 09:45 Speech Therapy Time Out: 10:15 Total Billed Time: 30 Billed Treatment Time 1, EDENILSON PERALTA [facility] ST Jul 31, 2022 12:27
[2022-07-31 20:52] VITALS: BP 111/68
[2022-07-31] MEDS: DULoxetine 30 MG (CYMBALTA) CAP PO SCH (21:55)
[2022-07-31] MEDS: ROSUVASTATIN 20 MG (CRESTOR) TABLET PO SCH (21:56)
[2022-07-31] MEDS: ALPRAZolam 0.25 MG (XANAX) TAB PO PRN (22:17)
[2022-08-01] MEDS: HYDROXYCHLOROQUINE 200 MG (PLAQUENIL) TAB PO SCH (06:41)
[2022-08-01] MEDS: inSUlin ASPART (NovoLOG) 1 UNIT/0.01 ML (CHARGE PER UNIT) SQ SCH ×3 (06:41→17:27)
[2022-08-01] MEDS: MULTIVIT W/MINERALS TAB (THERAGRAN M) PO SCH (06:41)
[2022-08-01 07:20] VITALS: BP 123/63
[2022-08-01] MEDS: LORATADINE (CLARITIN) 10 MG TAB PO SCH (07:50)
[2022-08-01] MEDS: GABAPENTIN 100 MG (NEURONTIN) CAP PO SCH ×3 (07:50→20:26)
[2022-08-01] MEDS: KCL 10 MEQ TAB (MICRO K) PO SCH ×3 (07:50→17:27)
[2022-08-01] MEDS: OMEGA 3 (FISH OIL) 1000 MG CAP PO SCH ×2 (07:50→20:27)
[2022-08-01] MEDS: PANTOPRAZOLE 40 MG (PROTONIX) TAB PO SCH ×2 (07:50→20:26)
[2022-08-01] MEDS: FOLIC ACID 1 MG TAB PO SCH (07:50)
[2022-08-01] MEDS: VITAMIN D3 25 MCG (1,000 UNITS) TABLET PO SCH (07:50)
[2022-08-01] MEDS: morphine ER 15 MG (MS CONTIN) TAB PO SCH ×2 (07:51→20:26)
[2022-08-01] MEDS: BACLOFEN 10 MG (LIORESAL) TAB PO SCH ×3 (07:51→20:28)
[2022-08-01] MEDS: SUCRALFATE 1 GM (CARAFATE) TAB PO SCH ×2 (07:51→20:29)
[2022-08-01] MEDS: metFORMIN 500 MG (GLUCOPHAGE) TAB PO SCH ×2 (07:51→17:27)
--- NOTE | 2022-08-01 08:46 | Occupational Ther Daily Note ---
OT Current Status-Daily Note Subjective Pt in bed upon arrival and agreeable to therapy. Appearance Pt left sitting in w/c with all needs within reach. Mental Status/Objective Patient Orientation: Person, Confused Attachments: IV ADL-Treatment Therapy Code Descriptions/Definitions Functional [place] Measure: 0=Not Assessed/NA 4=Minimal Assistance 1=Total Assistance 5=Supervision or Setup 2=Maximal Assistance 6=Modified [place] 3=Moderate Assistance 7=Complete IndependenceSCALE: Activities may be completed with or without assistive devices. 9-Nrclcokuri-sliatqe completes the activity by him/herself with no assistance from a helper. 5-Set-up or Clean-up Assistance-helper sets up or cleans up; patient completes activity. Shelby assists only prior to or following the activity. 4-Supervision or Touching Assistance-helper provides verbal cues and/or touching/steadying and/or contact guard assistance as patient completes activity. Assistance may be provided throughout the activity or intermittently. 3-Partial/Moderate Assistance-helper does LESS THAN HALF the effort. Shelby lifts, holds or supports trunk or limbs, but provides less than half the effort. 2-Substantial/Maximal Assistance-helper does MORE THAN HALF the effort. Shelby lifts or holds trunk or limbs and provides more than half the effort. 0-Rynuimhxd-ggpuqr does ALL the effort. Patient does none of the effort to complete the activity. Or, the assistance of 2 or more helpers is required for the patient to complete the activity. If activity was not attempted, code reason: 7-Patient Refused. 9-Not Applicable-not attempted and the patient did not perform the activity before the current illness, exacerbation or injury. 10-Not Attempted due to Environmental Limitations-(lack of equipment, weather restraints, etc.). 88-Not Attempted due to Medical Conditions or Safety Concerns. Oral Hygiene (QC): 6 Upper Body Dressing (QC): 5 Lower Body Dressing (QC): 3 On/Off Footwear: 3 Sit <> stand transfers: mod/max assist x2. Step by step cues needed for 100% of transfers, poor carrying over with cues. Very poor short term memory, as she requires consistent reminders about what to do next. Clothing donned seated in w/c. Pt educated on AE for lower body dressing, needed max cues for follow through post instruction. When given significant time and cues, she was able to thread bilateral feet into pants with business writer. Clothing management required max assist, but anticipate less assist with looser fitting clothing. Min-mod cues given for sock aide for proper technique, with fair follow through post instruction. Pt stated she has used a sock aide in the past. Due to pain, pt exhibits a lot of effort to lift L foot off of floor for dressing tasks. Grooming completed 100% seated at sink with independence. Other Treatment Sit<>stand transfer at bed rail x2 with mod-max assist x2. Focus to improve posture, weight-bearing, endurance, strength, and balance all needed for functional performance in ADLs. Pt shifted weight side to side and requires verbal cues to increase weight bearing through Left LE. Poor standing tolerance and poor eccentric control when lowering. Max cues for safety/management with all w/c mobility. Poor object avoidance as pt bumps into same object multiple times until cued. Education OT Patient Education: Correct positioning, Energy conservation, Modified ADL techniques, Progress toward Goal/Update tx plan, Purpose of tx/functional activi ties, Reviewed precautions, Rehab process, Safety issues, Transfer techniques, Use of adapted equipment, W/C management Teaching Recipient: Patient Teaching Methods: Demonstration, Discussion Response to Teaching: Reinforcement Needed OT Short Term Goals Short Term Goals Time Frame: Aug 13, 2022 Eatin Oral hygiene: 5 Toileting hygiene: 2 Shower/bathe self: 3 Upper body dressin Lower body dressin Putting on/taking off footwear: 2 OT Shelter Goals Service Loss Control Consultant Goals Time Frame: Aug 24, 2022 Eating (QC): 6 Oral Hygiene (QC): 6 Toileting Hygiene (QC): 4 Shower/Bathe Self (QC): 5 Upper Body Dressing (QC): 5 Lower Body Dressing (QC): 4 On/Off Footwear (QC): 4 Additional Goals: 1-Demonstrate ADL Tasks, 2-Verbalize Understanding, 3- ImproveStrength/Singh 1=Demonstrate adherence to instructed precautions during ADL tasks. 2=Patient will verbalize/demonstrate understanding of assistive devices/modifications for ADL. 3=Patient will improve strength/tolerance for activity to enable patient to perform ADL's. OT Education/Plan Problem List/Assessment Assessment: Decreased Activ Tolerance, Decreased Safety Aware, Decreased UE Strength, Dependent Transfers, Edema, Impaired Bed Mobility, Impaired Cognition, Impaired Coordination, Impaired Funct Balance, Impaired I ADL's, Impaired Self- Care Skills, Restricted Funct UE ROM Discharge Recommendations Plan/Recommendations: Continue POC Equpiment Recommendations-D/C: Professor Of Poultry Science, Hip Kit, Sock Aide, Long Shoe Horn Treatment Plan/Plan of Care Treatment,Training & Education: Yes Patient would benefit from OT for education, treatment and training to promote independence in ADL's, mobility, safety and/or upper extremity function for ADL's. Plan of Care: ADL Retraining, Caregiver Training, Cognitive Retraining, Concurrent Therapy, Functional Mobility, Group Exercise/Act as Ind, UE Funct Exercise/Act, W/C Management Training Treatment Duration: Aug 24, 2022 Frequency: At least 5 of 7 days/Wk (IRF) Estimated Hrs Per Day: 1.5 hours per day (75-90 min/day) Agreement: Yes Rehab Potential: Guarded Time/GCodes Start Time: 07:30 Stop Time: 08:45 Total Time Billed (hr/min): 75 Billed Treatment Time 1 visit ADL x4 (60 min) FA (15 min) Jennifer Hand OT Aug 01, 2022 08:46
[2022-08-01] MEDS: polyethylene glycoL POWDER 17 GM (MIRALAX) PACK PO SCH ×2 (09:22→20:34)
[2022-08-01] MEDS: DOCUSATE SODIUM 100 MG (COLACE) CAP PO SCH ×2 (09:22→20:26)
[2022-08-01] MEDS: SENNA W/DOCUSATE (SENOKOT S) TABLET PO SCH ×2 (09:23→20:26)
--- NOTE | 2022-08-01 10:23 | Physical Therapy Daily Note ---
PT Daily Note-Current Subjective Pt sitting in [facility] in room upon arrival. Sp arrives shortly after beginning tx. Pt reluctantly agrees to PT stating, "I though I was done until after lunch. I have already had therapy." Pain Numeric Pain Scale: 10-Worst Possible Pain Location: Left Location Body Site: Hip Pain Description: Stabbing, Sharp Comment: Pt reports 12/10 pain but cannot have pain med yet. Yells w/any movement. Mental Status Patient Orientation: Person, Place, Situation Transfers SCALE: Activities may be completed with or without assistive devices. 8-Njnpltkmii-eshrscm completes the activity by him/herself with no assistance from a helper. 5-Set-up or Clean-up Assistance-helper sets up or cleans up; patient completes activity. [place] assists only prior to or following the activity. 4-Supervision or Touching Assistance-helper provides verbal cues and/or touching/steadying and/or contact guard assistance as patient completes activity. Assistance may be provided throughout the activity or intermittently. 3-Partial/Moderate Assistance-helper does LESS THAN HALF the effort. [place] lifts, holds or supports trunk or limbs, but provides less than half the effort. 2-Substantial/Maximal Assistance-helper does MORE THAN HALF the effort. [place] lifts or holds trunk or limbs and provides more than half the effort. 0-Ebbyzvsaz-yyriov does ALL the effort. Patient does none of the effort to complete the activity. Or, the assistance of 2 or more helpers is required for the patient to complete the activity. If activity was not attempted, code reason: 7-Patient Refused. 9-Not Applicable-not attempted and the patient did not perform the activity before the current illness, exacerbation or injury. 10-Not Attempted due to Environmental Limitations-(lack of equipment, weather restraints, etc.). 88-Not Attempted due to Medical Conditions or Safety Concerns. Sit to Lying (QC): 2 Sit to Stand (QC): 2 Weight Bearing Right Lower Extremity: Right Full Weight Bearing Left Lower Extremity: Left Weight Bearing/Tolerated Gait Training Does the Patient Walk?: Yes Distance: 3', 5' Gait Persons Needed: 2 Gait Assistive Device: FWW [facility] follows when walking. Min-Mod A with walking. Wheelchair Training Does the Pt Use a Wheelchair?: Yes Type of Wheelchair: Manual Assessment Current Status: Poor Progress Pt reports increased pain and tightness after walking. Pt continues to yell/scream w/any movement. Heavy dose of VC needed for sequencing as well as encouragement for advancing LE during walking. 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 Time Frame: Aug 24, 2022 Roll Left & Right (QC): 4 Sit to Lying (QC): 4 Lying-Sitting on Side/Bed(QC): 4 Sit to Stand (QC): 4 Chair/Amv-iz-Gdlzv Xfer(QC): 4 Toilet Transfer (QC): 4 Car Transfer (QC): 4 Does the Patient Walk: Yes Walk 10 feet (QC): 4 Walk 50ft with 2 Turns (QC): 4 Walk 150 ft (QC): 3 Walking 10ft on Uneven Surface: 4 1 Step (curb) (QC): 3 4 Steps (QC): 3 12 Steps (QC): 3 Picking up an Object (QC): 4 Does the Pt use WC or Scooter?: Yes Wheel 50 feet with 2 turns (QC: 6 Type: Manual Wheel 150 feet: 6 PT Plan Problem List Problem List: Activity Tolerance, Functional Strength, Safety, Gait, Transfer Treatment/Plan Treatment Plan: Continue Plan of Care Treatment Plan: Bed Mobility, Education, Functional Activity Singh, Functional Strength, Group Therapy, Gait, Safety, Therapeutic Exercise, Transfers Treatment Duration: Sep 14, 2022 Frequency: At least 5 of 7 days/Wk (IRF) Estimated Hrs Per Day: 1.5 hours per day Patient and/or Family Agrees t: Yes Safety Risks/Education Patient Education: Gait Training, Transfer Techniques, Correct Positioning, Safety Issues Teaching Recipient: Patient Teaching Methods: Discussion Response to Teaching: Reinforcement Needed Time/GCodes Time In: 900 Time Out: 1010 Total Billed Treatment Time: 70 Total Billed Treatment 1, WCH x2 (30m), FA (10m) & GT x2 (30m) JHONNY VERNON BARREL CAP SETTER Aug 01, 2022 10:22
--- NOTE | 2022-08-01 11:49 | PM&R Progress Note ---
Subjective HPI/CC On Admission Date Seen by Provider: Aug 01, 2022 Time Seen by Provider: 10:00 Subjective/Events-last exam 08/02/2022: No major issues except chronic pain issues along with acute pain issues No falls Increasing mobility with wheelchair Catastrophic injury for person who struggles with chronic pain 07/31/2022: Patient doing fairly well Pain is an issue and I had started the long acting MSO4 which seems to have helped No falls Took shower No other issues Review of Systems General: Fatigue, Malaise Musculoskeletal: leg pain, foot pain Objective Exam Vital Signs Vital Signs Date Time Temp Pulse Resp B/P (MAP) Pulse Ox O2 Delivery O2 Flow Rate FiO2 08/01/22 20:20 Room Air 08/01/22 19:40 35.6 100 20 133/52 (79) 90 Capillary Refill : General Appearance: No Apparent Distress, WD/WN, Chronically ill HEENT: PERRL/EOMI, Normal ENT Inspection, Pharynx Normal Neck: Full Range of Motion, Normal Inspection, Non Tender, Supple, Carotid Bruit Respiratory: Chest Non Tender, Lungs Clear, Normal Breath Sounds, No Accessory Muscle Use, No Respiratory Distress Cardiovascular: Regular Rate, Rhythm, No Edema, No Gallop, No JVD, No Murmur, Normal Peripheral Pulses Gastrointestinal: Normal Bowel Sounds, No Organomegaly, No Pulsatile Mass, Non Tender, Soft Back: Normal Inspection, No CVA Tenderness, No Vertebral Tenderness Extremity: Normal Capillary Refill, Normal Inspection, Normal Range of Motion (except left leg), Non Tender, No Calf Tenderness, No Pedal Edema Neurologic/Psychiatric: Alert, Oriented x3, No Motor/Sensory Deficits, Normal Mood/Affect, Abnormal Gait, Motor Weakness (left leg) Skin: Normal Color, Warm/Dry Lymphatic: No Adenopathy Results/Procedures Lab Patient resulted labs reviewed. FIM Transfers Therapy Code Descriptions/Definitions Functional [place] Measure: 0=Not Assessed/NA 4=Minimal Assistance 1=Total Assistance 5=Supervision or Setup 2=Maximal Assistance 6=Modified [place] 3=Moderate Assistance 7=Complete IndependenceSCALE: Activities may be completed with or without assistive devices. 9-Jdzgsyojja-kxxghly completes the activity by him/herself with no assistance from a helper. 5-Set-up or Clean-up Assistance-helper sets up or cleans up; patient completes activity. [place] assists only prior to or following the activity. 4-Supervision or Touching Assistance-helper provides verbal cues and/or touching/steadying and/or contact guard assistance as patient completes activity. Assistance may be provided throughout the activity or intermittently. 3-Partial/Moderate Assistance-helper does LESS THAN HALF the effort. [place] lifts, holds or supports trunk or limbs, but provides less than half the effort. 2-Substantial/Maximal Assistance-helper does MORE THAN HALF the effort. [place] lifts or holds trunk or limbs and provides more than half the effort. 7-Zdlcmtcib-ecvfkw does ALL the effort. Patient does none of the effort to complete the activity. Or, the assistance of 2 or more helpers is required for the patient to complete the activity. If activity was not attempted, code reason: 7-Patient Refused. 9-Not Applicable-not attempted and the patient did not perform the activity before the current illness, exacerbation or injury. 10-Not Attempted due to Environmental Limitations-(lack of equipment, weather restraints, etc.). 88-Not Attempted due to Medical Conditions or Safety Concerns. Roll Left to Right (QC): 1 Sit to Lying (QC): 2 Sit to Stand (QC): 2 Chair/Xyw-ly-Geqri Xfer(QC): 2 Car Transfer (QC): 2 Gait Training Does the Patient Walk?: Yes Distance: 3', 5' Walk 10 feet (QC): 88 Walk 50 ft with 2 Turns(QC): 88 Walk 150 ft (QC): 88 Walking 10ft/uneven surface-QC: 88 Gait Persons Needed: 2 Gait Assistive Device: FWW Wheelchair Training Does the Pt Use a Wheelchair?: Yes Distance: 50 Wheel 50 ft with 2 turns (QC): 5 Wheel 150 ft (QC): 5 Type of Wheelchair: Manual Stair Training #of Steps: 0 1 Step (curb) (QC): 88 4 Steps (QC): 88 12 Steps (QC): 88 Balance Picking up an Object (QC): 88 ADL-Treatment Eating (QC): 4 Oral Hygiene (QC): 6 Shower/Bathe Self (QC): 3 Upper Body Dressing (QC): 5 Lower Body Dressing (QC): 3 On/Off Footwear (QC): 3 Toileting Hygiene (QC): 1 Toilet Transfer (QC): 1 Assessment/Plan Assessment and Plan Assess & Plan/Chief Complaint Assessment: s/p left hip fracture repair Acute on chronic severe pain managed as outpatient by pain director utilization management CVA hx RA DM HTN CAD previous CABG GIB hx Post op anemia s/p 3 units of blood Iron deficiency Acute hypokalemia Plan: PT OT Pain control BM regimen Fall risk 07/31/2022: Replace potassium Supportive care 08/02/2022: Increase pain med doses (1) Intertrochanteric fracture of left hip Status: Acute (2) Iron deficiency anemia EDY IVEY DO Aug 01, 2022 11:49
--- NOTE | 2022-08-01 13:29 | Physical Therapy Daily Note ---
PT Daily Note-Current Subjective Pt laying Supine in bed upon arrival. Sp present but leaves shortly after tx begins. Pt is very drowsy and reports continued L hip pain. Pain Numeric Pain Scale: 8 Location: Left Location Body Site: Hip Pain Description: Stabbing, Sharp Mental Status Patient Orientation: Person, Place, Situation Transfers SCALE: Activities may be completed with or without assistive devices. 1-Jdappunbyf-lteacvo completes the activity by him/herself with no assistance from a helper. 5-Set-up or Clean-up Assistance-helper sets up or cleans up; patient completes activity. [place] assists only prior to or following the activity. 4-Supervision or Touching Assistance-helper provides verbal cues and/or touching/steadying and/or contact guard assistance as patient completes activity. Assistance may be provided throughout the activity or intermittently. 3-Partial/Moderate Assistance-helper does LESS THAN HALF the effort. [place] lifts, holds or supports trunk or limbs, but provides less than half the effort. 2-Substantial/Maximal Assistance-helper does MORE THAN HALF the effort. [place] lifts or holds trunk or limbs and provides more than half the effort. 3-Phhzsuvcm-tdhloy does ALL the effort. Patient does none of the effort to complete the activity. Or, the assistance of 2 or more helpers is required for the patient to complete the activity. If activity was not attempted, code reason: 7-Patient Refused. 9-Not Applicable-not attempted and the patient did not perform the activity before the current illness, exacerbation or injury. 10-Not Attempted due to Environmental Limitations-(lack of equipment, weather restraints, etc.). 88-Not Attempted due to Medical Conditions or Safety Concerns. Weight Bearing Right Lower Extremity: Right Full Weight Bearing Left Lower Extremity: Left Weight Bearing/Tolerated Exercises Supine Ex: Ankle pumps, Quad Set, Glut sets, Heel Slides, Hip abd/add Supine Reps: 10 Treatments Pt completes Supine Ex, resting as needed. Pt resting at end of tx with all needs met, call light in hand. Assessment Current Status: Fair Progress PT is very drowsy and needs to be awoken several times during tx. PT Medical Staff Assistant Goals Medical Staff Assistant Goals PT Medical Staff Assistant Goals Time Frame: Aug 24, 2022 Roll Left & Right (QC): 4 Sit to Lying (QC): 4 Lying-Sitting on Side/Bed(QC): 4 Sit to Stand (QC): 4 Chair/Pby-sm-Iesil Xfer(QC): 4 Toilet Transfer (QC): 4 Car Transfer (QC): 4 Does the Patient Walk: Yes Walk 10 feet (QC): 4 Walk 50ft with 2 Turns (QC): 4 Walk 150 ft (QC): 3 Walking 10ft on Uneven Surface: 4 1 Step (curb) (QC): 3 4 Steps (QC): 3 12 Steps (QC): 3 Picking up an Object (QC): 4 Does the Pt use WC or Scooter?: Yes Wheel 50 feet with 2 turns (QC: 6 Type: Manual Wheel 150 feet: 6 PT Plan Problem List Problem List: Activity Tolerance, Functional Strength Treatment/Plan Treatment Plan: Continue Plan of Care Treatment Plan: Bed Mobility, Education, Functional Activity Singh, Functional Strength, Group Therapy, Gait, Safety, Therapeutic Exercise, Transfers Treatment Duration: Sep 14, 2022 Frequency: At least 5 of 7 days/Wk (IRF) Estimated Hrs Per Day: 1.5 hours per day Patient and/or Family Agrees t: Yes Safety Risks/Education Patient Education: Correct Positioning Teaching Recipient: Patient Teaching Methods: Discussion Response to Teaching: Verbalize Understanding Time/GCodes Time In: 1300 Time Out: 1330 Total Billed Treatment Time: 30 Total Billed Treatment 1, EX x2 (30m) JHONNY VERNON PTA Aug 01, 2022 13:29
[2022-08-01 19:40] VITALS: BP 133/52
[2022-08-01] MEDS: DULoxetine 30 MG (CYMBALTA) CAP PO SCH (20:29)
[2022-08-01] MEDS: ROSUVASTATIN 20 MG (CRESTOR) TABLET PO SCH (20:29)
[2022-08-02] MEDS: HYDROXYCHLOROQUINE 200 MG (PLAQUENIL) TAB PO SCH (06:56)
[2022-08-02] MEDS: inSUlin ASPART (NovoLOG) 1 UNIT/0.01 ML (CHARGE PER UNIT) SQ SCH ×3 (06:56→17:56)
[2022-08-02] MEDS: MULTIVIT W/MINERALS TAB (THERAGRAN M) PO SCH (06:56)
[2022-08-02 08:00] VITALS: BP 118/60
--- NOTE | 2022-08-02 10:28 | Physical Therapy Daily Note ---
PT Daily Note-Current Subjective Patient sitting EOB pre tx, agrees to PT, has 10/10 pain in left hip. Will be co-treating with OT due to poor patient mobility, strength,endurance, severe debility and pain with activity, coordinate UE and LE during activity, safety and reduce risk of falls. Appearance Patient in recliner post tx with nurse call, phone, tray, all needs met. Mental Status Patient Orientation: Person, Place, Situation Transfers SCALE: Activities may be completed with or without assistive devices. 4-Hccsblafho-lwexhdb completes the activity by him/herself with no assistance from a helper. 5-Set-up or Clean-up Assistance-helper sets up or cleans up; patient completes activity. [place] assists only prior to or following the activity. 4-Supervision or Touching Assistance-helper provides verbal cues and/or touching/steadying and/or contact guard assistance as patient completes activity. Assistance may be provided throughout the activity or intermittently. 3-Partial/Moderate Assistance-helper does LESS THAN HALF the effort. [place] lifts, holds or supports trunk or limbs, but provides less than half the effort. 2-Substantial/Maximal Assistance-helper does MORE THAN HALF the effort. [place] lifts or holds trunk or limbs and provides more than half the effort. 7-Mdrfdywsh-lkknrx does ALL the effort. Patient does none of the effort to complete the activity. Or, the assistance of 2 or more helpers is required for the patient to complete the activity. If activity was not attempted, code reason: 7-Patient Refused. 9-Not Applicable-not attempted and the patient did not perform the activity before the current illness, exacerbation or injury. 10-Not Attempted due to Environmental Limitations-(lack of equipment, weather restraints, etc.). 88-Not Attempted due to Medical Conditions or Safety Concerns. Sit to Stand (QC): 1 Chair/Ajx-th-Mjycy Xfer(QC): 3 (mod assist) Assist of 2 for sit to stand especially from lower surfaces. Patient transferred to from bed and taken to her shower, transferred to shower bench. Patient showered, attempted to ambulate to her recliner but couldn't, tra nsferred to and then to recliner. Weight Bearing Right Lower Extremity: Right Full Weight Bearing Left Lower Extremity: Left Weight Bearing/Tolerated Treatments PT performed transfers, standing and positioning during bathing and dressing. OT performed bathing, dressing, UE positioning and safety during activity. Assessment Current Status: Poor Progress Patient has made little progress in a week since her surgery. Patient cannot tolerate to bear weight on her left leg and yells out in pain disproportionately with just touching of her left leg or even the right leg. Patient tenses up with any attempted or anticipated movement. She hyperventilated during therapy but calmed down with therapist direction. PT Half-Way Goals Group Manager Goals PT Half-Way Goals Time Frame: Aug 24, 2022 Roll Left & Right (QC): 4 Sit to Lying (QC): 4 Lying-Sitting on Side/Bed(QC): 4 Sit to Stand (QC): 4 Chair/Uqn-ms-Wwhiq Xfer(QC): 4 Toilet Transfer (QC): 4 Car Transfer (QC): 4 Does the Patient Walk: Yes Walk 10 feet (QC): 4 Walk 50ft with 2 Turns (QC): 4 Walk 150 ft (QC): 3 Walking 10ft on Uneven Surface: 4 1 Step (curb) (QC): 3 4 Steps (QC): 3 12 Steps (QC): 3 Picking up an Object (QC): 4 Does the Pt use WC or Scooter?: Yes Wheel 50 feet with 2 turns (QC: 6 Type: Manual Wheel 150 feet: 6 PT Plan Problem List Problem List: Activity Tolerance, Functional Strength, Safety, Balance, Gait, Transfer, Bed Mobility, ROM Treatment/Plan Treatment Plan: Continue Plan of Care Treatment Plan: Bed Mobility, Education, Functional Activity Singh, Functional Strength, Group Therapy, Gait, Safety, Therapeutic Exercise, Transfers Treatment Duration: Sep 14, 2022 Frequency: At least 5 of 7 days/Wk (IRF) Estimated Hrs Per Day: 1.5 hours per day Patient and/or Family Agrees t: Yes Safety Risks/Education Patient Education: Transfer Techniques, Reviewed Precautions, Correct Pos itioning, Safety Issues Teaching Recipient: Patient Teaching Methods: Demonstration, Discussion Response to Teaching: Reinforcement Needed Time/GCodes Time In: 0915 Time Out: 1030 Total Billed Treatment Time: 75 Total Billed Treatment 1 visit FA 75' MIRALAURA LOOMIS PT Aug 02, 2022 10:28
--- NOTE | 2022-08-02 10:43 | PM&R Progress Note ---
Subjective HPI/CC On Admission Date Seen by Provider: Aug 02, 2022 Time Seen by Provider: 10:00 Subjective/Events-last exam 08/02/2022: No major changes Pain is a limitation Increased pain meds Chronic pain requiring usp pain management will preclude good pain control due to tolerance 08/01/2022: No major issues except chronic pain issues along with acute pain issues No falls Increasing mobility with wheelchair Catastrophic injury for person who struggles with chronic pain 07/31/2022: Patient doing fairly well Pain is an issue and I had started the long acting MSO4 which seems to have helped No falls Took shower No other issues Review of Systems Musculoskeletal: leg pain Objective Exam Vital Signs Vital Signs Date Time Temp Pulse Resp B/P (MAP) Pulse Ox O2 Delivery O2 Flow Rate FiO2 08/02/22 21:00 36.5 90 20 130/74 (92) 91 Room Air Capillary Refill : General Appearance: No Apparent Distress, WD/WN, Chronically ill HEENT: PERRL/EOMI, Normal ENT Inspection, Pharynx Normal Neck: Full Range of Motion, Normal Inspection, Non Tender, Supple, Carotid Bruit Respiratory: Chest Non Tender, Lungs Clear, Normal Breath Sounds, No Accessory Muscle Use, No Respiratory Distress Cardiovascular: Regular Rate, Rhythm, No Edema, No Gallop, No JVD, No Murmur, Normal Peripheral Pulses Gastrointestinal: Normal Bowel Sounds, No Organomegaly, No Pulsatile Mass, Non Tender, Soft Back: Normal Inspection, No CVA Tenderness, No Vertebral Tenderness Extremity: Normal Capillary Refill, Normal Inspection, Normal Range of Motion (except left leg), Non Tender, No Calf Tenderness, No Pedal Edema Neurologic/Psychiatric: Alert, Oriented x3, No Motor/Sensory Deficits, Normal Mood/Affect, Abnormal Gait, Motor Weakness (left leg) Skin: Normal Color, Warm/Dry Lymphatic: No Adenopathy Results/Procedures Lab Patient resulted labs reviewed. FIM Transfers Therapy Code Descriptions/Definitions Functional [place] Measure: 0=Not Assessed/NA 4=Minimal Assistance 1=Total Assistance 5=Supervision or Setup 2=Maximal Assistance 6=Modified [place] 3=Moderate Assistance 7=Complete IndependenceSCALE: Activities may be completed with or without assistive devices. 4-Mvusnxbzqb-bkvdkxo completes the activity by him/herself with no assistance from a helper. 5-Set-up or Clean-up Assistance-helper sets up or cleans up; patient completes activity. [place] assists only prior to or following the activity. 4-Supervision or Touching Assistance-helper provides verbal cues and/or touc ledy/steadying and/or contact guard assistance as patient completes activity. Assistance may be provided throughout the activity or intermittently. 3-Partial/Moderate Assistance-helper does LESS THAN HALF the effort. [place] lifts, holds or supports trunk or limbs, but provides less than half the effort. 2-Substantial/Maximal Assistance-helper does MORE THAN HALF the effort. [place] lifts or holds trunk or limbs and provides more than half the effort. 8-Vokvijeaf-tiyygq does ALL the effort. Patient does none of the effort to complete the activity. Or, the assistance of 2 or more helpers is required for the patient to complete the activity. If activity was not attempted, code reason: 7-Patient Refused. 9-Not Applicable-not attempted and the patient did not perform the activity before the current illness, exacerbation or injury. 10-Not Attempted due to Environmental Limitations-(lack of equipment, weather restraints, etc.). 88-Not Attempted due to Medical Conditions or Safety Concerns. Roll Left to Right (QC): 1 Sit to Lying (QC): 2 Sit to Stand (QC): 1 Chair/Wvd-rf-Irsgb Xfer(QC): 3 (mod assist) Car Transfer (QC): 2 Gait Training Does the Patient Walk?: Yes Distance: 3', 5' Walk 10 feet (QC): 88 Walk 50 ft with 2 Turns(QC): 88 Walk 150 ft (QC): 88 Walking 10ft/uneven surface-QC: 88 Gait Persons Needed: 2 Gait Assistive Device: FWW Wheelchair Training Does the Pt Use a Wheelchair?: Yes Distance: 50 Wheel 50 ft with 2 turns (QC): 5 Wheel 150 ft (QC): 5 Type of Wheelchair: Manual Stair Training #of Steps: 0 1 Step (curb) (QC): 88 4 Steps (QC): 88 12 Steps (QC): 88 Balance Picking up an Object (QC): 88 ADL-Treatment Eating (QC): 4 Oral Hygiene (QC): 6 Shower/Bathe Self (QC): 3 Upper Body Dressing (QC): 5 Lower Body Dressing (QC): 3 On/Off Footwear (QC): 3 Toileting Hygiene (QC): 1 Toilet Transfer (QC): 1 Assessment/Plan Assessment and Plan Assess & Plan/Chief Complaint Assessment: s/p left hip fracture repair Acute on chronic severe pain managed as outpatient 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
[2022-08-02] MEDS: SUCRALFATE 1 GM (CARAFATE) TAB PO SCH ×2 (11:27→20:30)
[2022-08-02] MEDS: VITAMIN D3 25 MCG (1,000 UNITS) TABLET PO SCH (11:27)
[2022-08-02] MEDS: DOCUSATE SODIUM 100 MG (COLACE) CAP PO SCH ×2 (11:27→20:30)
[2022-08-02] MEDS: FOLIC ACID 1 MG TAB PO SCH (11:27)
[2022-08-02] MEDS: OMEGA 3 (FISH OIL) 1000 MG CAP PO SCH ×2 (11:28→20:31)
[2022-08-02] MEDS: morphine ER 15 MG (MS CONTIN) TAB PO SCH ×2 (11:28→20:32)
[2022-08-02] MEDS: PANTOPRAZOLE 40 MG (PROTONIX) TAB PO SCH ×2 (11:28→20:30)
[2022-08-02] MEDS: metFORMIN 500 MG (GLUCOPHAGE) TAB PO SCH ×2 (11:28→17:56)
[2022-08-02] MEDS: LORATADINE (CLARITIN) 10 MG TAB PO SCH (11:29)
--- NOTE | 2022-08-02 11:54 | Occupational Ther Daily Note ---
OT Current Status-Daily Note Subjective Pt was seated in recliner upon arrival. She reports wanting to shower. Therapist notes a significant decrease in cognition during today's session. Appearance Pt left seated in recliner with present. All needs were within reach. Mental Status/Objective Patient Orientation: Person, Confused ADL-Treatment Therapy Code Descriptions/Definitions Functional [place] Measure: 0=Not Assessed/NA 4=Minimal Assistance 1=Total Assistance 5=Supervision or Setup 2=Maximal Assistance 6=Modified [place] 3=Moderate Assistance 7=Complete IndependenceSCALE: Activities may be completed with or without assistive devices. 5-Vxjqqjirpn-obbkhkf completes the activity by him/herself with no assistance from a helper. 5-Set-up or Clean-up Assistance-helper sets up or cleans up; patient completes activity. [place] assists only prior to or following the activity. 4-Supervision or Touching Assistance-helper provides verbal cues and/or touching/steadying and/or contact guard assistance as patient completes activity. Assistance may be provided throughout the activity or intermittently. 3-Partial/Moderate Assistance-helper does LESS THAN HALF the effort. [place] lifts, holds or supports trunk or limbs, but provides less than half the effort. 2-Substantial/Maximal Assistance-helper does MORE THAN HALF the effort. [place] lifts or holds trunk or limbs and provides more than half the effort. 5-Reaglzfjg-elgddl does ALL the effort. Patient does none of the effort to complete the activity. Or, the assistance of 2 or more helpers is required for the patient to complete the activity. If activity was not attempted, code reason: 7-Patient Refused. 9-Not Applicable-not attempted and the patient did not perform the activity before the current illness, exacerbation or injury. 10-Not Attempted due to Environmental Limitations-(lack of equipment, weather restraints, etc.). 88-Not Attempted due to Medical Conditions or Safety Concerns. Shower/Bathe Self (QC): 3 Upper Body Dressing (QC): 5 Lower Body Dressing (QC): 1 On/Off Footwear: 1 Co-treat with PT secondary to fall risk, weakness, balance deficits, pain, and cognition. Pt showed a significant decline in cognition and sequencing for all tasks during today's session. Pt completed sit to stand transfers with max assist x2. Several cues for upright posture as she remains in flexed trunk position during standing. Step by step cues on where to place feet and hands during transfers. Shower performed 100% in sitting with min assist for buttocks. Pt showed an increase in safety concerns during shower and transfers as she would fling herself back and almost loosing balance while seated, and attempting to stand during shower. Max verbal cues were given for sequencing of tasks during shower. Pt unable to dry lower legs/feet. Attempted to use christmas bell ringer to don underwear, but ultimately dependent for lower body dressing due to fatigue, pain, and lack of ROM. Dependent for clothing management as pt requires max assist x2. Education OT Patient Education: Correct positioning, Energy conservation, Modified ADL techniques, Progress toward Goal/Update tx plan, Purpose of tx/functional activities, Reviewed precautions, Rehab process, Safety issues, Transfer techniques, Use of adapted equipment, W/C management Teaching Recipient: Patient Teaching Methods: Demonstration, Discussion Response to Teaching: Reinforcement Needed OT Short Term Goals Short Term Goals Time Frame: Aug 13, 2022 Eatin Oral hygiene: 5 Toileting hygiene: 2 Shower/bathe self: 3 Upper body dressin Lower body dressin Putting on/taking off footwear: 2 OT Instructional Services Librarian Goals Instructional Services Librarian Goals Time Frame: Aug 24, 2022 Eating (QC): 6 Oral Hygiene (QC): 6 Toileting Hygiene (QC): 4 Shower/Bathe Self (QC): 5 Upper Body Dressing (QC): 5 Lower Body Dressing (QC): 4 On/Off Footwear (QC): 4 Additional Goals: 1-Demonstrate ADL Tasks, 2-Verbalize Understanding, 3- ImproveStrength/Singh 1=Demonstrate adherence to instructed precautions during ADL tasks. 2=Patient will verbalize/demonstrate understanding of assistive devices/modifications for ADL. 3=Patient will improve strength/tolerance for activity to enable patient to perform ADL's. OT Education/Plan Problem List/Assessment Assessment: Decreased Activ Tolerance, Decreased Safety Aware, Decreased UE Strength, Dependent Transfers, Edema, Impaired Bed Mobility, Impaired Cognition, Impaired Coordination, Impaired Funct Balance, Impaired I ADL's, Impaired Self- Care Skills, Restricted Funct UE ROM Discharge Recommendations Plan/Recommendations: Continue POC Treatment Plan/Plan of Care Treatment,Training & Education: Yes Patient would benefit from OT for education, treatment and training to promote independence in ADL's, mobility, safety and/or upper extremity function for ADL's. Plan of Care: ADL Retraining, Caregiver Training, Cognitive Retraining, Concurrent Therapy, Functional Mobility, Group Exercise/Act as Ind, UE Funct Exercise/Act, W/C Management Training Treatment Duration: Aug 24, 2022 Frequency: At least 5 of 7 days/Wk (IRF) Estimated Hrs Per Day: 1.5 hours per day (75-90 min/day) Agreement: Yes Rehab Potential: Guarded Time/GCodes Start Time: 09:00 Stop Time: 10:35 Total Time Billed (hr/min): 95 Billed Treatment Time 1 visit ADL x6 (95 minutes) Co-treat ([id number]) Jennifer Hand OT Aug 02, 2022 11:54
[2022-08-02] MEDS: BACLOFEN 10 MG (LIORESAL) TAB PO SCH ×3 (13:00→20:31)
[2022-08-02] MEDS: GABAPENTIN 100 MG (NEURONTIN) CAP PO SCH ×3 (13:00→20:31)
[2022-08-02] MEDS: KCL 10 MEQ TAB (MICRO K) PO SCH ×3 (13:19→17:57)
[2022-08-02] MEDS: polyethylene glycoL POWDER 17 GM (MIRALAX) PACK PO SCH ×2 (13:25→21:00)
[2022-08-02] MEDS: SENNA W/DOCUSATE (SENOKOT S) TABLET PO SCH ×2 (13:26→21:00)
--- NOTE | 2022-08-02 16:10 | Physical Therapy Daily Note ---
PT Daily Note-Current Subjective Patient sitting in chair upon PT arrival, agreeable to treatment. Rates pain in left hip at 5/10 at rest and 10/10 with activity. Mental Status Patient Orientation: Person Transfers SCALE: Activities may be completed with or without assistive devices. 1-Staucgvwwt-swzrhsa completes the activity by him/herself with no assistance from a helper. 5-Set-up or Clean-up Assistance-helper sets up or cleans up; patient completes activity. [place] assists only prior to or following the activity. 4-Supervision or Touching Assistance-helper provides verbal cues and/or touching/steadying and/or contact guard assistance as patient completes activity. Assistance may be provided throughout the activity or intermittently. 3-Partial/Moderate Assistance-helper does LESS THAN HALF the effort. [place] lifts, holds or supports trunk or limbs, but provides less than half the effort. 2-Substantial/Maximal Assistance-helper does MORE THAN HALF the effort. [place] lifts or holds trunk or limbs and provides more than half the effort. 2-Smhaunpyx-jbyfgx does ALL the effort. Patient does none of the effort to complete the activity. Or, the assistance of 2 or more helpers is required for the patient to complete the activity. If activity was not attempted, code reason: 7-Patient Refused. 9-Not Applicable-not attempted and the patient did not perform the activity before the current illness, exacerbation or injury. 10-Not Attempted due to Environmental Limitations-(lack of equipment, weather restraints, etc.). 88-Not Attempted due to Medical Conditions or Safety Concerns. Weight Bearing Right Lower Extremity: Right Full Weight Bearing Left Lower Extremity: Left Weight Bearing/Tolerated Exercises Supine Ex: Quad Set, Glut sets Supine Reps: 20 Seated Therapy Exercises: Ankle pumps, Long arc quads, Hamstring Curls Seated Reps: 20 Assessment Current Status: Poor Progress Patient tolerated treatment fair, however continues to demonstrate significant strength deficit in left LE, apprehension to movement and jumps/yells with any palpation of the left LE. Patient performs LE therapeutic exercise as listed above. Left LE appears swollen and shiny, Legs elevated and nurse notified. Patient in chair post treatment with all needs met, nursing notified, call light in hand. PT Longterm Goals Longterm Goals PT Screw Supervisor Goals Time Frame: Aug 24, 2022 Roll Left & Right (QC): 4 Sit to Lying (QC): 4 Lying-Sitting on Side/Bed(QC): 4 Sit to Stand (QC): 4 Chair/Yxt-un-Cynql Xfer(QC): 4 Toilet Transfer (QC): 4 Car Transfer (QC): 4 Does the Patient Walk: Yes Walk 10 feet (QC): 4 Walk 50ft with 2 Turns (QC): 4 Walk 150 ft (QC): 3 Walking 10ft on Uneven Surface: 4 1 Step (curb) (QC): 3 4 Steps (QC): 3 12 Steps (QC): 3 Picking up an Object (QC): 4 Does the Pt use WC or Scooter?: Yes Wheel 50 feet with 2 turns (QC: 6 Type: Manual Wheel 150 feet: 6 PT Plan Treatment/Plan Treatment Plan: Continue Plan of Care Treatment Plan: Bed Mobility, Education, Functional Activity Singh, Functional Strength, Group Therapy, Gait, Safety, Therapeutic Exercise, Transfers Treatment Duration: Sep 14, 2022 Frequency: At least 5 of 7 days/Wk (IRF) Estimated Hrs Per Day: 1.5 hours per day Patient and/or Family Agrees t: Yes Time/GCodes Time In: 1554 Time Out: 1409 Total Billed Treatment Time: 15 Total Billed Treatment Visit, Ex BRENDON RUBY PT Aug 02, 2022 16:10
[2022-08-02] MEDS: ALPRAZolam 0.25 MG (XANAX) TAB PO PRN (20:30)
[2022-08-02] MEDS: ROSUVASTATIN 20 MG (CRESTOR) TABLET PO SCH (20:31)
[2022-08-02] MEDS: DULoxetine 30 MG (CYMBALTA) CAP PO SCH (20:32)
[2022-08-02 21:00] VITALS: BP 130/74
[2022-08-03] MEDS: MULTIVIT W/MINERALS TAB (THERAGRAN M) PO SCH (06:39)
[2022-08-03] MEDS: inSUlin ASPART (NovoLOG) 1 UNIT/0.01 ML (CHARGE PER UNIT) SQ SCH ×3 (06:39→17:13)
[2022-08-03] MEDS: HYDROXYCHLOROQUINE 200 MG (PLAQUENIL) TAB PO SCH (06:39)
[2022-08-03] MEDS: morphine ER 15 MG (MS CONTIN) TAB PO SCH ×2 (07:58→21:27)
[2022-08-03] MEDS: FOLIC ACID 1 MG TAB PO SCH (07:58)
[2022-08-03] MEDS: SUCRALFATE 1 GM (CARAFATE) TAB PO SCH ×2 (07:58→21:25)
[2022-08-03] MEDS: VITAMIN D3 25 MCG (1,000 UNITS) TABLET PO SCH (07:58)
[2022-08-03] MEDS: OMEGA 3 (FISH OIL) 1000 MG CAP PO SCH ×2 (07:58→21:25)
[2022-08-03] MEDS: BACLOFEN 10 MG (LIORESAL) TAB PO SCH ×3 (07:59→21:25)
[2022-08-03] MEDS: PANTOPRAZOLE 40 MG (PROTONIX) TAB PO SCH ×2 (07:59→21:26)
[2022-08-03] MEDS: KCL 10 MEQ TAB (MICRO K) PO SCH ×3 (07:59→17:13)
[2022-08-03] MEDS: LORATADINE (CLARITIN) 10 MG TAB PO SCH (07:59)
[2022-08-03] MEDS: SENNA W/DOCUSATE (SENOKOT S) TABLET PO SCH ×2 (07:59→21:25)
[2022-08-03] MEDS: metFORMIN 500 MG (GLUCOPHAGE) TAB PO SCH ×2 (07:59→17:13)
[2022-08-03] MEDS: GABAPENTIN 100 MG (NEURONTIN) CAP PO SCH ×3 (07:59→21:26)
[2022-08-03] MEDS: DOCUSATE SODIUM 100 MG (COLACE) CAP PO SCH ×2 (07:59→21:25)
[2022-08-03] MEDS: polyethylene glycoL POWDER 17 GM (MIRALAX) PACK PO SCH ×2 (08:00→21:25)
[2022-08-03 08:01] VITALS: BP 150/68
--- NOTE | 2022-08-03 08:22 | Occupational Ther Daily Note ---
OT Current Status-Daily Note Subjective Pt was up with nursing upon arrival, as she had just finished toileting. Co- treat completed with pt secondary to fall risk, increased support, cognition, weakness, decreased coordination and balance. Appearance Pt left up in w/c and was encouraged to move around her room/commons area in w/c to increase more independence. present. All needs within reach. Mental Status/Objective Patient Orientation: Person, Confused Attachments: IV Acute change in mental status: 1 Inattention: 1 Disorganized thinkin Altered level of consciousness: 2 ADL-Treatment Therapy Code Descriptions/Definitions Functional [place] Measure: 0=Not Assessed/NA 4=Minimal Assistance 1=Total Assistance 5=Supervision or Setup 2=Maximal Assistance 6=Modified [place] 3=Moderate Assistance 7=Complete IndependenceSCALE: Activities may be completed with or without assistive devices. 2-Zoyzjuetdy-lbfkpml completes the activity by him/herself with no assistance from a helper. 5-Set-up or Clean-up Assistance-helper sets up or cleans up; patient completes activity. [place] assists only prior to or following the activity. 4-Supervision or Touching Assistance-helper provides verbal cues and/or touching/steadying and/or contact guard assistance as patient completes activity. Assistance may be provided throughout the activity or intermittently. 3-Partial/Moderate Assistance-helper does LESS THAN HALF the effort. [place] lifts, holds or supports trunk or limbs, but provides less than half the effort. 2-Substantial/Maximal Assistance-helper does MORE THAN HALF the effort. [place] lifts or holds trunk or limbs and provides more than half the effort. 2-Jrmidkzfc-toghxo does ALL the effort. Patient does none of the effort to complete the activity. Or, the assistance of 2 or more helpers is required for the patient to complete the activity. If activity was not attempted, code reason: 7-Patient Refused. 9-Not Applicable-not attempted and the patient did not perform the activity before the current illness, exacerbation or injury. 10-Not Attempted due to Environmental Limitations-(lack of equipment, weather restraints, etc.). 88-Not Attempted due to Medical Conditions or Safety Concerns. Eating (QC): 6 Upper Body Dressing (QC): 5 Lower Body Dressing (QC): 3 (Mod assist) On/Off Footwear: 3 Sit<>stand transfers mod assist 1-2. Pt is still having increased pain with movement and requires max cues with little to no follow through for proper technique of taking steps. She requires max increased instruction (2-3 times directly after initial instruction) for sitting back in chair rather than sitting at the edge of chair, for increased safety and decrease chance for fall/slip risk. Pt is non-compliant with cues for safety, although stating she understands. Pt required reeducation and demonstration on use of AE (cleaning associate and sock aide) for dressing. Pt required mod-max cues for lower body dressing and mod assist. She shows increased confusion and cues for sequencing and following through with directions. Other Treatment Multiple sit<>stand transfers in between parallel bars to improve strength, end urance, and balance for ~2-3 minutes at a time. Weight shifting on both legs were attempted, but needed mod-max cues for continuing task/redirection. Pt is resistant to weight bearing through L LE. Education OT Patient Education: Correct positioning, Energy conservation, Exercise program, Modified ADL techniques, Progress toward Goal/Update tx plan, Purpose of tx/functional activities, Rehab process, Safety issues, Transfer techniques, Use of adapted equipment, W/C management Teaching Recipient: Patient Teaching Methods: Demonstration, Discussion Response to Teaching: Verbalize Understanding (Verbalizes understanding without follow through), Unable to Return Demonstration, Reinforcement Needed OT Short Term Goals Short Term Goals Time Frame: Aug 13, 2022 Eatin Oral hygiene: 5 Toileting hygiene: 2 Shower/bathe self: 3 Upper body dressin Lower body dressin Putting on/taking off footwear: 2 OT Residential Goals Residential Goals Time Frame: Aug 24, 2022 Acute change in mental status: 1 Inattention: 2 Disorganized thinkin Altered level of consciousness: 0 Eating (QC): 6 Oral Hygiene (QC): 6 Toileting Hygiene (QC): 4 Shower/Bathe Self (QC): 5 Upper Body Dressing (QC): 5 Lower Body Dressing (QC): 4 On/Off Footwear (QC): 4 Additional Goals: 1-Demonstrate ADL Tasks, 2-Verbalize Understanding, 3- ImproveStrength/Singh 1=Demonstrate adherence to instructed precautions during ADL tasks. 2=Patient will verbalize/demonstrate understanding of assistive devices/modifications for ADL. 3=Patient will improve strength/tolerance for activity to enable patient to perform ADL's. OT Education/Plan Problem List/Assessment Assessment: Decreased Activ Tolerance, Decreased Safety Aware, Decreased UE Strength, Impaired Bed Mobility, Impaired Cognition, Impaired Coordination, Impaired Funct Balance, Impaired I ADL's, Impaired Self-Care Skills, Restricted Funct UE ROM Discharge Recommendations Plan/Recommendations: Continue POC Treatment Plan/Plan of Care Treatment,Training & Education: Yes Patient would benefit from OT for education, treatment and training to promote independence in ADL's, mobility, safety and/or upper extremity function for ADL's. Plan of Care: ADL Retraining, Caregiver Training, Cognitive Retraining, Concurrent Therapy, Functional Mobility, Group Exercise/Act as Ind, UE Funct Exercise/Act, W/C Management Training Treatment Duration: Aug 24, 2022 Frequency: At least 5 of 7 days/Wk (IRF) Estimated Hrs Per Day: 1.5 hours per day (75-90 min/day) Agreement: Yes Rehab Potential: Guarded Time/GCodes Start Time: 07:45 Stop Time: 09:00 Total Time Billed (hr/min): 75 Billed Treatment Time 1 visit ADL x3 (50 minutes) FA x2 (25 minutes) Co-treat ([id number]) Jennifer Hand OT Aug 03, 2022 08:22
--- NOTE | 2022-08-03 08:58 | Physical Therapy Daily Note ---
PT Daily Note-Current Subjective Patient in recliner pre tx, agrees to PT, has 5/10 pain at rest and 10/10 pain with movement. Will be co-treating with OT due to poor patient mobility, strength, endurance, severe pain with activity, coordinate UE and LE with activity, safety and reduce risk of falls. Pain Section J - Health Conditions 1. Rarely or not at all 2. Occasionally 3. Frequently 4. Almost constantly 8. Unable to answer Pain Effect on Sleep: 3 Pain Interference with Therapy: 4 Pain Interference w/Day-to-Day: 4 Appearance Patient in WC post tx with nurse call, phone, tray, all needs met. Mental Status Patient Orientation: Person, Place, Situation Transfers SCALE: Activities may be completed with or without assistive devices. 6-Fgrjxowndl-rfdfgkg completes the activity by him/herself with no assistance from a helper. 5-Set-up or Clean-up Assistance-helper sets up or cleans up; patient completes activity. [place] assists only prior to or following the activity. 4-Supervision or Touching Assistance-helper provides verbal cues and/or touching/steadying and/or contact guard assistance as patient completes activity. Assistance may be provided throughout the activity or intermittently. 3-Partial/Moderate Assistance-helper does LESS THAN HALF the effort. [place] lifts, holds or supports trunk or limbs, but provides less than half the effort. 2-Substantial/Maximal Assistance-helper does MORE THAN HALF the effort. [place] lifts or holds trunk or limbs and provides more than half the effort. 2-Msqwbmzou-yjgoie does ALL the effort. Patient does none of the effort to complete the activity. Or, the assistance of 2 or more helpers is required for the patient to complete the activity. If activity was not attempted, code reason: 7-Patient Refused. 9-Not Applicable-not attempted and the patient did not perform the activity before the current illness, exacerbation or injury. 10-Not Attempted due to Environmental Limitations-(lack of equipment, weather restraints, etc.). 88-Not Attempted due to Medical Conditions or Safety Concerns. Sit to Stand (QC): 2 Chair/Kyv-zz-Npkkj Xfer(QC): 2 Max assist to stand, patient then pulls up her pants which OT had partially put on, transfers to . Patient performs transfer very slowly, takes at least 5 min and she will not listen to cues to make it easier for her. When she sits she sits on the edge of the WC, she has been doing this constantly and will not listen to cues to sit back further. Weight Bearing Right Lower Extremity: Right Full Weight Bearing Left Lower Extremity: Left Weight Bearing/Tolerated Gait Training Distance: 3' Gait Assistive Device: Parallel Bars max assist, patient will not bear weight on left leg Exercises weight shifting in parallel bars to encourage weight bearing on left leg Treatments PT performed standing, weight shifting, transfers, OT performed dressing, UE positioning and safety during activity Assessment Current Status: Poor Progress no progress with functional mobility PT Communications Coordinator Goals Communications Coordinator Goals PT Half-Way Goals Time Frame: Aug 24, 2022 Roll Left & Right (QC): 4 Sit to Lying (QC): 4 Lying-Sitting on Side/Bed(QC): 4 Sit to Stand (QC): 4 Chair/Jdf-eq-Dwnjt Xfer(QC): 4 Toilet Transfer (QC): 4 Car Transfer (QC): 4 Does the Patient Walk: Yes Walk 10 feet (QC): 4 Walk 50ft with 2 Turns (QC): 4 Walk 150 ft (QC): 3 Walking 10ft on Uneven Surface: 4 1 Step (curb) (QC): 3 4 Steps (QC): 3 12 Steps (QC): 3 Picking up an Object (QC): 4 Does the Pt use WC or Scooter?: Yes Wheel 50 feet with 2 turns (QC: 6 Type: Manual Wheel 150 feet: 6 PT Plan Problem List Problem List: Activity Tolerance, Functional Strength, Safety, Balance, Gait, Transfer, Bed Mobility, ROM Treatment/Plan Treatment Plan: Continue Plan of Care Treatment Plan: Bed Mobility, Education, Functional Activity Singh, Functional Strength, Group Therapy, Gait, Safety, Therapeutic Exercise, Transfers Treatment Duration: Sep 14, 2022 Frequency: At least 5 of 7 days/Wk (IRF) Estimated Hrs Per Day: 1.5 hours per day Patient and/or Family Agrees t: Yes Safety Risks/Education Patient Education: Gait Training, Transfer Techniques, Reviewed Precautions, Correct Positioning, Safety Issues Teaching Recipient: Patient Teaching Methods: Demonstration, Discussion Response to Teaching: Reinforcement Needed Time/GCodes Time In: 0800 Time Out: 0900 Total Billed Treatment Time: 60 Total Billed Treatment 1 visit FA 60' co-treated for 60' LAURA RAE PT Aug 03, 2022 08:58
--- NOTE | 2022-08-03 11:59 | Diagnostic Imaging Report ---
CLINICAL HISTORY: Left hip pain. Recent surgical fixation of the proximal left femur. COMPARISON: 07/25/2022. TECHNIQUE: Two views of the left hip. FINDINGS: Interval open reduction and internal fixation of the proximal left femur is visualized. There is anatomic alignment. No evidence of hardware failure. No new fractures are identified in the proximal left femur. No fractures are seen in the included pelvis. IMPRESSION: 1. Expected postsurgical changes of open reduction and internal fixation of the proximal left femur. No new fractures or malalignment. Dictated by: Dictated on workstation # [id number]
[2022-08-03] MEDS ORDERED: BISACODYL 10 MG SUPP (DULCOLAX) PR NR (12:00)
--- NOTE | 2022-08-03 12:10 | ST Cognitive Linguistic Eval ---
Speech Evaluation-General Medical Diagnosis Left Hip Fracture Onset Date: Jul 25, 2022 Therapy Diagnosis Therapy Diagnosis: Impaired, Declined Cognitive Skills Precautions Precautions: Fall, Pressure Ulcer, Hip Precautions/Isolations: Fall Prevention, Standard Precautions, Pressure Ulcer Referral Referring Physician: Dr. Henry Reason for Referral: Evaluation/Treatment Medical History Pertinent Medical History: CABG, CAD, CVA, DM, Neuropathy Current History The patient is a 71 year-old female with a past medical history of arthritis, diabetes, and stroke presented to the inpatient rehabilitation floor after obtaining a left hip fracture on 07/26/22 after falling at home. Reviewed History: Yes Social History Current Living Status: Spouse Speech PLF-Current Status Prior Level of Function On this date, the patient's was present and confirms the patient may have displayed "a little" difficulty with memory prior to admission, however, the patient's cognitive skills have greatly declined throughout her hospitalization. Subjective The patient was seated upright in her wheelchair, awake upon entrance to her room by the clinician. The patient's is present, who participates throughout the evaluation. The patient was agreeable to cognitive re-assessment. Per patient's (and patient), the patient has demonstrated a cognitive decline over the past couple of days. Per RN, the patient's pain medication may be the cause of her fluctuating cognition. The patient remains drowsy throughout the evaluation, frequently returning to sleep. Per patient's , the patient "fell asleep while wheeling her wheelchair earlier." Language Eval: Auditory Comprehends Simple Yes/No Ques: Functional Indent/Objects Multiple Noel: Functional Follows 1-Step Commands: Functional Follows General Conversations: Moderate (With repetition.) Language Eval: Verbal Language Completes Spontaneous Greeting: Functional Produces Auto, Serial Info: Functional Imitates Simple Words/Phrases: Functional Word Finding: Moderate Requests Basic Needs: Functional States Basic Personal Info: Functional Language Evaluation: Writing Writes to Simple Dictation: Functional Cognitive Patient Orientation The patient is oriented to self, location, month (following self-correction), year, and day of the week. Throughout the session, the patient does change her answer of day of the week to Saturday for a second time prior to self- correcting. Objective Cognitive Domain Attention: Moderate Memory: Moderate Executive Functions: Moderate Composite Severity Rating: Moderate Objective Impression The patient displays a declined in the cognitive skills this clinician documented and experienced three days prior. The patient displayed a result of +29/30 on the SLUMS three days ago, on this date the patient was unable to complete the SLUMS due to decreased attention and increased fatigue. The [facility] ician will provide cognitive treatment and monitoring throughout the patient's stay at this time. The RN was notified of the changes experienced by this clinician. Speech Patient Assess Expression of Ideas/Wants: Expression (4) Understanding Verbal Content: Understands (4) Brief Interview-Mental Status: Yes Repetition of Three Words: Three (3) Temporal Orientation: Year: Correct (3) Temporal Orientation: Month: Accurate within 5 days(2) Temporal Orientation: Day: Correct (1) Recall : Wear to say "Sock": Yes, no cue required (2) Recall : Color: Yes, no cue required (2) Recall : Bed: Yes,after cueing (1) Memory/Recall Ability: Current season, That he or she is in a hsp/hsp unit Speech Short Term Goals Short Term Goals Short Term Goals 1. The patient will demonstrate 75% accuracy with memory exercises with mild clinician verbal prompting. Time Frame-STG: One Week. Speech Senior Care Goals Auto Design Checker Goals The patient will demonstrate improved cognitive linguistic skills for safe discharge to the least restrictive environment. Time Frame: Ten Days. Speech-Plan Treatment Plan Speech Therapy Treatment Plan: Continue Plan of Care Treatment Duration: Jul 31, 2022 Frequency: Modified Program (IRF) Estimated Hrs Per Day: .5 hour per day Rehab Potential: Guarded Safety Risks/Education Teaching Recipient: Patient, Significant Other Teaching Methods: Discussion Response to Teaching: Verbalize Understanding Education Topics Provided: Results, Recommendations, Plan of Care Time Speech Therapy Time In: 10:00 Speech Therapy Time Out: 10:30 Total Billed Time: 30 Billed Treatment Time 1, EDENILSON PERALTA ELIZABETH ST Aug 03, 2022 12:09
--- NOTE | 2022-08-03 12:32 | PM&R Progress Note ---
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 will preclude good pain control due to tolerance 08/01/2022: No major issues except chronic pain issues along with acute pain issues No falls Increasing mobility with wheelchair Catastrophic injury for person who struggles with chronic pain 07/31/2022: Patient doing fairly well Pain is an issue and I had started the long acting MSO4 which seems to have helped No falls Took shower No other issues Review of Systems Musculoskeletal: leg pain Objective Exam Vital Signs Vital Signs Date Time Temp Pulse Resp B/P (MAP) Pulse Ox O2 Delivery O2 Flow Rate FiO2 08/03/22 21:25 95 Nasal Cannula 2.00 08/03/22 20:19 35.9 91 24 118/73 (88) Capillary Refill : General Appearance: No Apparent Distress, WD/WN, Chronically ill HEENT: PERRL/EOMI, Normal ENT Inspection, Pharynx Normal Neck: Full Range of Motion, Normal Inspection, Non Tender, Supple, Carotid Bruit Respiratory: Chest Non Tender, Lungs Clear, Normal Breath Sounds, No Accessory Muscle Use, No Respiratory Distress Cardiovascular: Regular Rate, Rhythm, No Edema, No Gallop, No JVD, No Murmur, Normal Peripheral Pulses Gastrointestinal: Normal Bowel Sounds, No Organomegaly, No Pulsatile Mass, Non Tender, Soft Back: Normal Inspection, No CVA Tenderness, No Vertebral Tenderness Extremity: Normal Capillary Refill, Normal Inspection, Normal Range of Motion (except left leg), Non Tender, No Calf Tenderness, No Pedal Edema Neurologic/Psychiatric: Alert, Oriented x3, No Motor/Sensory Deficits, Normal Mood/Affect, Abnormal Gait, Motor Weakness (left leg) Skin: Normal Color, Warm/Dry Lymphatic: No Adenopathy Results/Procedures Lab Patient resulted labs reviewed. FIM Transfers Therapy Code Descriptions/Definitions Functional [place] Measure: 0=Not Assessed/NA 4=Minimal Assistance 1=Total Assistance 5=Supervision or Setup 2=Maximal Assistance 6=Modified [place] 3=Moderate Assistance 7=Complete IndependenceSCALE: Activities may be completed with or without assistive devices. 0-Owviavwbch-wndrrbm completes the activity by him/herself with no assistance from a helper. 5-Set-up or Clean-up Assistance-helper sets up or cleans up; patient completes activity. [place] assists only prior to or following the activity. 4-Supervision or Touching Assistance-helper provides verbal cues and/or touching/steadying and/or contact guard assistance as patient completes activ ity. Assistance may be provided throughout the activity or intermittently. 3-Partial/Moderate Assistance-helper does LESS THAN HALF the effort. [place] lifts, holds or supports trunk or limbs, but provides less than half the effort. 2-Substantial/Maximal Assistance-helper does MORE THAN HALF the effort. [place] lifts or holds trunk or limbs and provides more than half the effort. 2-Vyhnwbvlr-igcizx does ALL the effort. Patient does none of the effort to complete the activity. Or, the assistance of 2 or more helpers is required for the patient to complete the activity. If activity was not attempted, code reason: 7-Patient Refused. 9-Not Applicable-not attempted and the patient did not perform the activity before the current illness, exacerbation or injury. 10-Not Attempted due to Environmental Limitations-(lack of equipment, weather restraints, etc.). 88-Not Attempted due to Medical Conditions or Safety Concerns. Roll Left to Right (QC): 1 Sit to Lying (QC): 2 Sit to Stand (QC): 2 Chair/Zku-pf-Pakmg Xfer(QC): 2 Car Transfer (QC): 2 Gait Training Does the Patient Walk?: Yes Distance: 3' Walk 10 feet (QC): 88 Walk 50 ft with 2 Turns(QC): 88 Walk 150 ft (QC): 88 Walking 10ft/uneven surface-QC: 88 Gait Persons Needed: 2 Gait Assistive Device: Parallel Bars Wheelchair Training Does the Pt Use a Wheelchair?: Yes Distance: 50 Wheel 50 ft with 2 turns (QC): 5 Wheel 150 ft (QC): 5 Type of Wheelchair: Manual Stair Training #of Steps: 0 1 Step (curb) (QC): 88 4 Steps (QC): 88 12 Steps (QC): 88 Balance Picking up an Object (QC): 88 ADL-Treatment Eating (QC): 6 Oral Hygiene (QC): 6 Shower/Bathe Self (QC): 3 Upper Body Dressing (QC): 5 Lower Body Dressing (QC): 3 (Mod assist) On/Off Footwear (QC): 3 Toileting Hygiene (QC): 1 Toilet Transfer (QC): 1 Assessment/Plan Assessment and Plan Assess & Plan/Chief Complaint Assessment: s/p left hip fracture repair Acute on chronic severe pain managed as outpatient by pain management consulting CVA hx RA DM HTN CAD previous CABG GIB hx Post op anemia s/p 3 units of blood Iron deficiency Acute hypokalemia Plan: PT OT Pain control BM regimen Fall risk 07/31/2022: Replace potassium Supportive care 08/01/2022: Increase pain med doses 08/02/2022: Monitor pain 08/03/2022: Decrease MSO4 due to resp drive decrease SSE for narcotic bowel (1) Intertrochanteric fracture of left hip Status: Acute (2) Iron deficiency anemia EDY IVEY DO Aug 03, 2022 12:31
--- NOTE | 2022-08-03 12:38 | Physical Therapy Daily Note ---
PT Daily Note-Current Subjective Patient in WC pre tx, agrees to PT, has 6/10 pain in left hip. Patient would like to get back into bed. Pain Section J - Health Conditions 1. Rarely or not at all 2. Occasionally 3. Frequently 4. Almost constantly 8. Unable to answer Pain Effect on Sleep: 3 Pain Interference with Therapy: 4 Pain Interference w/Day-to-Day: 4 Appearance Patient in bed post tx with nurse call, phone, tray, radiology entering room to do xray. Mental Status Patient Orientation: Person, Place, Situation Transfers SCALE: Activities may be completed with or without assistive devices. 2-Wuwpizprla-ohnesbn completes the activity by him/herself with no assistance from a helper. 5-Set-up or Clean-up Assistance-helper sets up or cleans up; patient completes activity. [place] assists only prior to or following the activity. 4-Supervision or Touching Assistance-helper provides verbal cues and/or touching/steadying and/or contact guard assistance as patient completes activity. Assistance may be provided throughout the activity or intermittently. 3-Partial/Moderate Assistance-helper does LESS THAN HALF the effort. [place] lifts, holds or supports trunk or limbs, but provides less than half the effort. 2-Substantial/Maximal Assistance-helper does MORE THAN HALF the effort. [place] lifts or holds trunk or limbs and provides more than half the effort. 9-Opufcwvkn-dlukfq does ALL the effort. Patient does none of the effort to complete the activity. Or, the assistance of 2 or more helpers is required for the patient to complete the activity. If activity was not attempted, code reason: 7-Patient Refused. 9-Not Applicable-not attempted and the patient did not perform the activity before the current illness, exacerbation or injury. 10-Not Attempted due to Environmental Limitations-(lack of equipment, weather restraints, etc.). 88-Not Attempted due to Medical Conditions or Safety Concerns. Roll Left & Right (QC): 2 Sit to Lying (QC): 1 Sit to Stand (QC): 2 Chair/Phe-zn-Doinl Xfer(QC): 3 Patient stands from with max assist, turns using walker with mod assist, very slow transfer (takes over 5 min), sits with cues for hand placement and positioning, lays down with assist of 2 and is cued for positioning to scoot ov er. Weight Bearing Right Lower Extremity: Right Full Weight Bearing Left Lower Extremity: Left Weight Bearing/Tolerated Treatments bed mobility and transfers Assessment Current Status: Poor Progress, Fair Progress no change in mobility PT Senior Living Goals Winch Operator Goals PT Senior Living Goals Time Frame: Aug 24, 2022 Roll Left & Right (QC): 4 Sit to Lying (QC): 4 Lying-Sitting on Side/Bed(QC): 4 Sit to Stand (QC): 4 Chair/Yiy-dl-Awpjb Xfer(QC): 4 Toilet Transfer (QC): 4 Car Transfer (QC): 4 Does the Patient Walk: Yes Walk 10 feet (QC): 4 Walk 50ft with 2 Turns (QC): 4 Walk 150 ft (QC): 3 Walking 10ft on Uneven Surface: 4 1 Step (curb) (QC): 3 4 Steps (QC): 3 12 Steps (QC): 3 Picking up an Object (QC): 4 Does the Pt use WC or Scooter?: Yes Wheel 50 feet with 2 turns (QC: 6 Type: Manual Wheel 150 feet: 6 PT Plan Problem List Problem List: Activity Tolerance, Functional Strength, Safety, Balance, Gait, Transfer, Bed Mobility, ROM Treatment/Plan Treatment Plan: Continue Plan of Care Treatment Plan: Bed Mobility, Education, Functional Activity Singh, Functional Strength, Group Therapy, Gait, Safety, Therapeutic Exercise, Transfers Treatment Duration: Sep 14, 2022 Frequency: At least 5 of 7 days/Wk (IRF) Estimated Hrs Per Day: 1.5 hours per day Patient and/or Family Agrees t: Yes Safety Risks/Education Patient Education: Transfer Techniques, Correct Positioning, Safety Issues Teaching Recipient: Patient Teaching Methods: Demonstration, Discussion Response to Teaching: Reinforcement Needed Time/GCodes Time In: 1130 Time Out: 1145 Total Billed Treatment Time: 15 Total Billed Treatment 1 visit FA LAURA MARROQUIN PT Aug 03, 2022 12:38
[2022-08-03 20:19] VITALS: BP 118/73
[2022-08-03] MEDS: ALPRAZolam 0.25 MG (XANAX) TAB PO PRN (21:25)
[2022-08-03] MEDS: DULoxetine 30 MG (CYMBALTA) CAP PO SCH (21:25)
[2022-08-03] MEDS: ROSUVASTATIN 20 MG (CRESTOR) TABLET PO SCH (21:26)
[2022-08-04] MEDS: MELATONIN 3 MG TABLET PO PRN (00:58)
[2022-08-04] MEDS: inSUlin ASPART (NovoLOG) 1 UNIT/0.01 ML (CHARGE PER UNIT) SQ SCH ×3 (06:54→17:02)
[2022-08-04] MEDS: MULTIVIT W/MINERALS TAB (THERAGRAN M) PO SCH (06:54)
[2022-08-04] MEDS: HYDROXYCHLOROQUINE 200 MG (PLAQUENIL) TAB PO SCH (06:55)
--- NOTE | 2022-08-04 07:12 | PM&R Progress Note ---
Subjective HPI/CC On Admission Date Seen by Provider: Aug 04, 2022 Time Seen by Provider: 11:00 Subjective/Events-last exam 08/04/2022: Improved status BM++ Pain actually improved O2 maintained 08/03/2022: Pain remains 08/27 Left hip was concerning therapy so obtained xray and no misalignment noted I told patient and that it will be unrealistic to attain pain control due to h/o chronic pain with nerve ablations and severe pain each and every day Respiratory drive diminished due to increased MSO4 so will decrease back to 15mg PO BID from 20mg No BM so increased laxatives and added SSE 08/02/2022: No major changes Pain is a limitation Increased pain meds Chronic pain requiring mcc pain management will preclude good pain control due to tolerance 08/01/2022: No major issues except chronic pain issues along with acute pain issues No falls Increasing mobility with wheelchair Catastrophic injury for person who struggles with chronic pain 07/31/2022: Patient doing fairly well Pain is an issue and I had started the long acting MSO4 which seems to have helped No falls Took shower No other issues Review of Systems General: Fatigue Gastrointestinal: Constipation Musculoskeletal: leg pain Objective Exam Vital Signs Vital Signs Date Time Temp Pulse Resp B/P (MAP) Pulse Ox O2 Delivery O2 Flow Rate FiO2 08/04/22 07:29 36.2 94 20 100/63 (75) 99 Nasal Cannula 2.00 Capillary Refill : General Appearance: No Apparent Distress, WD/WN, Chronically ill HEENT: PERRL/EOMI, Normal ENT Inspection, Pharynx Normal Neck: Full Range of Motion, Normal Inspection, Non Tender, Supple, Carotid Bruit Respiratory: Chest Non Tender, Lungs Clear, Normal Breath Sounds, No Accessory Muscle Use, No Respiratory Distress Cardiovascular: Regular Rate, Rhythm, No Edema, No Gallop, No JVD, No Murmur, Normal Peripheral Pulses Gastrointestinal: Normal Bowel Sounds, No Organomegaly, No Pulsatile Mass, Non Tender, Soft Back: Normal Inspection, No CVA Tenderness, No Vertebral Tenderness Extremity: Normal Capillary Refill, Normal Inspection, Normal Range of Motion (except left leg), Non Tender, No Calf Tenderness, No Pedal Edema Neurologic/Psychiatric: Alert, Oriented x3, No Motor/Sensory Deficits, Normal Mood/Affect, Abnormal Gait, Motor Weakness (left leg) Skin: Normal Color, Warm/Dry Lymphatic: No Adenopathy Results/Procedures Lab Patient resulted labs reviewed. FIM Transfers Therapy Code Descriptions/Definitions Functional [place] Measure: 0=Not Assessed/NA 4=Minimal Assistance 1=Total Assistance 5=Supervision or Setup 2=Maximal Assistance 6=Modified [place] 3=Moderate Assistance 7=Complete IndependenceSCALE: Activities may be completed with or without assistive devices. 0-Rhgbwkkree-jttnrfh completes the activity by him/herself with no assistance from a helper. 5-Set-up or Clean-up Assistance-helper sets up or cleans up; patient completes activity. [place] assists only prior to or following the activity. 4-Supervision or Touching Assistance-helper provides verbal cues and/or touching/steadying and/or contact guard assistance as patient completes activity. Assistance may be provided throughout the activity or intermittently. 3-Partial/Moderate Assistance-helper does LESS THAN HALF the effort. [place] lifts, holds or supports trunk or limbs, but provides less than half the effort. 2-Substantial/Maximal Assistance-helper does MORE THAN HALF the effort. [place] lifts or holds trunk or limbs and provides more than half the effort. 8-Pfeochsim-otiobo does ALL the effort. Patient does none of the effort to complete the activity. Or, the assistance of 2 or more helpers is required for the patient to complete the activity. If activity was not attempted, code reason: 7-Patient Refused. 9-Not Applicable-not attempted and the patient did not perform the activity before the current illness, exacerbation or injury. 10-Not Attempted due to Environmental Limitations-(lack of equipment, weather restraints, etc.). 88-Not Attempted due to Medical Conditions or Safety Concerns. Roll Left to Right (QC): 2 Sit to Lying (QC): 1 Sit to Stand (QC): 2 Chair/Nol-jy-Cwdwy Xfer(QC): 3 Car Transfer (QC): 2 Gait Training Does the Patient Walk?: Yes Distance: 3' Walk 10 feet (QC): 88 Walk 50 ft with 2 Turns(QC): 88 Walk 150 ft (QC): 88 Walking 10ft/uneven surface-QC: 88 Gait Persons Needed: 2 Gait Assistive Device: Parallel Bars Wheelchair Training Does the Pt Use a Wheelchair?: Yes Distance: 50 Wheel 50 ft with 2 turns (QC): 5 Wheel 150 ft (QC): 5 Type of Wheelchair: Manual Stair Training #of Steps: 0 1 Step (curb) (QC): 88 4 Steps (QC): 88 12 Steps (QC): 88 Balance Picking up an Object (QC): 88 ADL-Treatment Eating (QC): 6 Oral Hygiene (QC): 6 Shower/Bathe Self (QC): 3 Upper Body Dressing (QC): 5 Lower Body Dressing (QC): 3 (Mod assist) On/Off Footwear (QC): 3 Toileting Hygiene (QC): 1 Toilet Transfer (QC): 1 Assessment/Plan Assessment and Plan Assess & Plan/Chief Complaint Assessment: s/p left hip fracture repair Acute on chronic severe pain 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
[2022-08-04 07:29] VITALS: BP 100/63
[2022-08-04] MEDS: GABAPENTIN 100 MG (NEURONTIN) CAP PO SCH ×3 (08:01→21:16)
[2022-08-04] MEDS: BACLOFEN 10 MG (LIORESAL) TAB PO SCH ×3 (08:01→21:17)
[2022-08-04] MEDS: LORATADINE (CLARITIN) 10 MG TAB PO SCH (08:01)
[2022-08-04] MEDS: SUCRALFATE 1 GM (CARAFATE) TAB PO SCH ×2 (08:01→21:16)
[2022-08-04] MEDS: PANTOPRAZOLE 40 MG (PROTONIX) TAB PO SCH ×2 (08:01→21:17)
[2022-08-04] MEDS: FOLIC ACID 1 MG TAB PO SCH (08:01)
[2022-08-04] MEDS: KCL 10 MEQ TAB (MICRO K) PO SCH ×3 (08:01→17:02)
[2022-08-04] MEDS: OMEGA 3 (FISH OIL) 1000 MG CAP PO SCH ×2 (08:01→21:17)
[2022-08-04] MEDS: metFORMIN 500 MG (GLUCOPHAGE) TAB PO SCH ×2 (08:02→17:02)
[2022-08-04] MEDS: morphine ER 15 MG (MS CONTIN) TAB PO SCH ×2 (08:02→21:16)
[2022-08-04] MEDS: VITAMIN D3 25 MCG (1,000 UNITS) TABLET PO SCH (08:02)
[2022-08-04] MEDS: SENNA W/DOCUSATE (SENOKOT S) TABLET PO SCH ×2 (09:50→21:15)
[2022-08-04] MEDS: polyethylene glycoL POWDER 17 GM (MIRALAX) PACK PO SCH ×2 (09:50→21:15)
[2022-08-04] MEDS: DOCUSATE SODIUM 100 MG (COLACE) CAP PO SCH ×2 (09:50→21:17)
--- NOTE | 2022-08-04 12:14 | Physical Therapy Daily Note ---
PT Daily Note-Current Subjective Pt sitting in recliner with B LE elevated. Company present. Pt agrees to PT for EX for increased strengthening to improve mobility. Pain Section J - Health Conditions 1. Rarely or not at all 2. Occasionally 3. Frequently 4. Almost constantly 8. Unable to answer Pain Effect on Sleep: 3 Pain Interference with Therapy: 4 Pain Interference w/Day-to-Day: 4 Mental Status Patient Orientation: Person, Place, Situation Transfers SCALE: Activities may be completed with or without assistive devices. 8-Itqjsqvnps-lcayxuk completes the activity by him/herself with no assistance from a helper. 5-Set-up or Clean-up Assistance-helper sets up or cleans up; patient completes activity. [place] assists only prior to or following the activity. 4-Supervision or Touching Assistance-helper provides verbal cues and/or touching/steadying and/or contact guard assistance as patient completes activity. Assistance may be provided throughout the activity or intermittently. 3-Partial/Moderate Assistance-helper does LESS THAN HALF the effort. [place] lifts, holds or supports trunk or limbs, but provides less than half the effort. 2-Substantial/Maximal Assistance-helper does MORE THAN HALF the effort. [place] lifts or holds trunk or limbs and provides more than half the effort. 4-Jbxjqakob-xtefwz does ALL the effort. Patient does none of the effort to complete the activity. Or, the assistance of 2 or more helpers is required for the patient to complete the activity. If activity was not attempted, code reason: 7-Patient Refused. 9-Not Applicable-not attempted and the patient did not perform the activity before the current illness, exacerbation or injury. 10-Not Attempted due to Environmental Limitations-(lack of equipment, weather restraints, etc.). 88-Not Attempted due to Medical Conditions or Safety Concerns. Weight Bearing Right Lower Extremity: Right Full Weight Bearing Left Lower Extremity: Left Weight Bearing/Tolerated Exercises Supine Ex: Ankle pumps, Quad Set, Glut sets, Heel Slides, Straight leg raise, Hip abd/add Supine Reps: 15 Seated Therapy Exercises: Ankle pumps, Long arc quads, Hip flexion Seated Reps: 10 Treatments Pt completes Supine & Seated Ex with AAROM on most L LE Ex. Pt is issued written HEP for Supine & Seated Ex to continue to work on strengthening. Pt is resting at end of tx. All needs met, call light in hand. Assessment Current Status: Fair Progress Pt is in visibly less pain but also drowsy at times. Redirection given as needed to complete tasks. AAROM on L LE due to weakness and discomfort. PT Mcfp Goals Supervisor [employer] Goals PT Supervisor [employer] Goals Time Frame: Aug 24, 2022 Roll Left & Right (QC): 4 Sit to Lying (QC): 4 Lying-Sitting on Side/Bed(QC): 4 Sit to Stand (QC): 4 Chair/Nwa-eq-Beopg Xfer(QC): 4 Toilet Transfer (QC): 4 Car Transfer (QC): 4 Does the Patient Walk: Yes Walk 10 feet (QC): 4 Walk 50ft with 2 Turns (QC): 4 Walk 150 ft (QC): 3 Walking 10ft on Uneven Surface: 4 1 Step (curb) (QC): 3 4 Steps (QC): 3 12 Steps (QC): 3 Picking up an Object (QC): 4 Does the Pt use WC or Scooter?: Yes Wheel 50 feet with 2 turns (QC: 6 Type: Manual Wheel 150 feet: 6 PT Plan Problem List Problem List: Activity Tolerance, Functional Strength Treatment/Plan Treatment Plan: Continue Plan of Care Treatment Plan: Bed Mobility, Education, Functional Activity Singh, Functional Strength, Group Therapy, Gait, Safety, Therapeutic Exercise, Transfers Treatment Duration: Sep 14, 2022 Frequency: At least 5 of 7 days/Wk (IRF) Estimated Hrs Per Day: 1.5 hours per day Patient and/or Family Agrees t: Yes Safety Risks/Education Patient Education: Issued Written HEP, Correct Positioning Teaching Recipient: Patient, Family Teaching Methods: Demonstration, Discussion Response to Teaching: Verbalize Understanding Time/GCodes Time In: 1115 Time Out: 1145 Total Billed Treatment Time: 30 Total Billed Treatment 1, EX x2 (30m) JHONNY VERNON PTA Aug 04, 2022 12:14
[2022-08-04 20:00] VITALS: BP 121/57
[2022-08-04] MEDS: DULoxetine 30 MG (CYMBALTA) CAP PO SCH (21:15)
[2022-08-04] MEDS: ROSUVASTATIN 20 MG (CRESTOR) TABLET PO SCH (21:16)
[2022-08-04] MEDS: ALPRAZolam 0.25 MG (XANAX) TAB PO PRN (21:17)
[2022-08-05] MEDS: HYDROXYCHLOROQUINE 200 MG (PLAQUENIL) TAB PO SCH (06:49)
[2022-08-05] MEDS: inSUlin ASPART (NovoLOG) 1 UNIT/0.01 ML (CHARGE PER UNIT) SQ SCH ×3 (06:49→17:05)
[2022-08-05] MEDS: MULTIVIT W/MINERALS TAB (THERAGRAN M) PO SCH (06:49)
[2022-08-05 07:30] VITALS: BP 115/66
--- NOTE | 2022-08-05 08:34 | PM&R Progress Note ---
Subjective HPI/CC On Admission Date Seen by Provider: Aug 05, 2022 Time Seen by Provider: 16:00 Subjective/Events-last exam 08/05/2022: Improved status Pain control No falls Family at bedside 08/04/2022: Improved status BM++ Pain actually improved O2 maintained 08/03/2022: Pain remains 10/10 Left hip was concerning therapy so obtained xray and no misalignment noted I told patient and that it will be unrealistic to attain pain control due to h/o chronic pain with nerve ablations and severe pain each and every day Respiratory drive diminished due to increased MSO4 so will decrease back to 15mg PO BID from 20mg No BM so increased laxatives and added SSE 08/02/2022: No major changes Pain is a limitation Increased pain meds Chronic pain requiring mcc pain management will preclude good pain control due to tolerance 08/01/2022: No major issues except chronic pain issues along with acute pain issues No falls Increasing mobility with wheelchair Catastrophic injury for person who struggles with chronic pain 07/31/2022: Patient doing fairly well Pain is an issue and I had started the long acting MSO4 which seems to have helped No falls Took shower No other issues Review of Systems General: Fatigue, Malaise Musculoskeletal: leg pain Objective Exam Vital Signs Vital Signs Date Time Temp Pulse Resp B/P (MAP) Pulse Ox O2 Delivery O2 Flow Rate FiO2 08/05/22 21:00 94 Nasal Cannula 2.00 08/05/22 20:00 36.6 81 20 113/58 (76) Capillary Refill : General Appearance: No Apparent Distress, WD/WN, Chronically ill HEENT: PERRL/EOMI, Normal ENT Inspection, Pharynx Normal Neck: Full Range of Motion, Normal Inspection, Non Tender, Supple, Carotid Bruit Respiratory: Chest Non Tender, Lungs Clear, Normal Breath Sounds, No Accessory Muscle Use, No Respiratory Distress Cardiovascular: Regular Rate, Rhythm, No Edema, No Gallop, No JVD, No Murmur, Normal Peripheral Pulses Gastrointestinal: Normal Bowel Sounds, No Organomegaly, No Pulsatile Mass, Non Tender, Soft Back: Normal Inspection, No CVA Tenderness, No Vertebral Tenderness Extremity: Normal Capillary Refill, Normal Inspection, Normal Range of Motion (except left leg), Non Tender, No Calf Tenderness, No Pedal Edema Neurologic/Psychiatric: Alert, Oriented x3, No Motor/Sensory Deficits, Normal M ood/Affect, Abnormal Gait, Motor Weakness (left leg) Skin: Normal Color, Warm/Dry Lymphatic: No Adenopathy Results/Procedures Lab Patient resulted labs reviewed. FIM Transfers Therapy Code Descriptions/Definitions Functional [place] Measure: 0=Not Assessed/NA 4=Minimal Assistance 1=Total Assistance 5=Supervision or Setup 2=Maximal Assistance 6=Modified [place] 3=Moderate Assistance 7=Complete IndependenceSCALE: Activities may be completed with or without assistive devices. 5-Imyaxtznyh-zdoyvfd completes the activity by him/herself with no assistance from a helper. 5-Set-up or Clean-up Assistance-helper sets up or cleans up; patient completes activity. [place] assists only prior to or following the activity. 4-Supervision or Touching Assistance-helper provides verbal cues and/or touching/steadying and/or contact guard assistance as patient completes activity. Assistance may be provided throughout the activity or intermittently. 3-Partial/Moderate Assistance-helper does LESS THAN HALF the effort. [place] lifts, holds or supports trunk or limbs, but provides less than half the effort. 2-Substantial/Maximal Assistance-helper does MORE THAN HALF the effort. [place] lifts or holds trunk or limbs and provides more than half the effort. 9-Rtleyhcno-hhsrgd does ALL the effort. Patient does none of the effort to complete the activity. Or, the assistance of 2 or more helpers is required for the patient to complete the activity. If activity was not attempted, code reason: 7-Patient Refused. 9-Not Applicable-not attempted and the patient did not perform the activity before the current illness, exacerbation or injury. 10-Not Attempted due to Environmental Limitations-(lack of equipment, weather restraints, etc.). 88-Not Attempted due to Medical Conditions or Safety Concerns. Roll Left to Right (QC): 2 Sit to Lying (QC): 1 Sit to Stand (QC): 2 Chair/Ypr-ip-Uhswz Xfer(QC): 3 Car Transfer (QC): 2 Gait Training Does the Patient Walk?: Yes Distance: 3' Walk 10 feet (QC): 88 Walk 50 ft with 2 Turns(QC): 88 Walk 150 ft (QC): 88 Walking 10ft/uneven surface-QC: 88 Gait Persons Needed: 2 Gait Assistive Device: Parallel Bars Wheelchair Training Does the Pt Use a Wheelchair?: Yes Distance: 50 Wheel 50 ft with 2 turns (QC): 5 Wheel 150 ft (QC): 5 Type of Wheelchair: Manual Stair Training #of Steps: 0 1 Step (curb) (QC): 88 4 Steps (QC): 88 12 Steps (QC): 88 Balance Picking up an Object (QC): 88 ADL-Treatment Eating (QC): 6 Oral Hygiene (QC): 6 Shower/Bathe Self (QC): 3 Upper Body Dressing (QC): 5 Lower Body Dressing (QC): 3 (Mod assist) On/Off Footwear (QC): 3 Toileting Hygiene (QC): 1 Toilet Transfer (QC): 1 Assessment/Plan Assessment and Plan Assess & Plan/Chief Complaint Assessment: s/p left hip fracture repair Acute on chronic severe pain managed as outpatient 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
[2022-08-05] MEDS: SUCRALFATE 1 GM (CARAFATE) TAB PO SCH ×2 (08:42→21:00)
[2022-08-05] MEDS: KCL 10 MEQ TAB (MICRO K) PO SCH ×3 (08:42→17:06)
[2022-08-05] MEDS: OMEGA 3 (FISH OIL) 1000 MG CAP PO SCH ×2 (08:42→20:58)
[2022-08-05] MEDS: LORATADINE (CLARITIN) 10 MG TAB PO SCH (08:42)
[2022-08-05] MEDS: PANTOPRAZOLE 40 MG (PROTONIX) TAB PO SCH ×2 (08:42→20:59)
[2022-08-05] MEDS: DOCUSATE SODIUM 100 MG (COLACE) CAP PO SCH ×2 (08:42→21:00)
[2022-08-05] MEDS: GABAPENTIN 100 MG (NEURONTIN) CAP PO SCH ×3 (08:42→20:59)
[2022-08-05] MEDS: VITAMIN D3 25 MCG (1,000 UNITS) TABLET PO SCH (08:42)
[2022-08-05] MEDS: SENNA W/DOCUSATE (SENOKOT S) TABLET PO SCH ×2 (08:42→21:00)
[2022-08-05] MEDS: BACLOFEN 10 MG (LIORESAL) TAB PO SCH ×3 (08:42→20:59)
[2022-08-05] MEDS: morphine ER 15 MG (MS CONTIN) TAB PO SCH ×2 (08:42→21:00)
[2022-08-05] MEDS: metFORMIN 500 MG (GLUCOPHAGE) TAB PO SCH ×2 (08:42→17:05)
[2022-08-05] MEDS: FOLIC ACID 1 MG TAB PO SCH (08:43)
[2022-08-05] MEDS: polyethylene glycoL POWDER 17 GM (MIRALAX) PACK PO SCH ×2 (11:11→21:00)
[2022-08-05 20:00] VITALS: BP 113/58
[2022-08-05] MEDS: ROSUVASTATIN 20 MG (CRESTOR) TABLET PO SCH (20:59)
[2022-08-05] MEDS: DULoxetine 30 MG (CYMBALTA) CAP PO SCH (20:59)
[2022-08-05] MEDS: MELATONIN 3 MG TABLET PO PRN (23:24)
[2022-08-06 05:57] LABS: BASOPHILS % (AUTO) 0 % (0-10); EOSINOPHILS # (AUTO) 0.1 10^3/uL (0.0-0.3); EOSINOPHILS % (AUTO) 2 % (0-10); HEMATOCRIT 28 % (35-52); HEMOGLOBIN 8.3 g/dL (11.5-16.0); LYMPHOCYTES # (AUTO) 0.8 10^3/uL (1.0-4.0); LYMPHOCYTES % (AUTO) 14 % (12-44); MEAN CORPUSCULAR HEMOGLOBIN 28 pg (25-34); MEAN CORPUSCULAR HGB CONC 30 g/dL (32-36); MEAN CORPUSCULAR VOLUME 93 fL (80-99); MEAN PLATELET VOLUME 10.5 fL (9.0-12.2); MONOCYTES # (AUTO) 0.5 10^3/uL (0.0-1.0); MONOCYTES % (AUTO) 8 % (0-12); NEUTROPHILS # (AUTO) 4.2 10^3/uL (1.8-7.8); NEUTROPHILS % (AUTO) 74 % (42-75); PLATELET COUNT 158 10^3/uL (130-400); WHITE BLOOD COUNT 5.6 10^3/uL (4.3-11.0)
[2022-08-06 06:17] LABS: ALBUMIN 2.8 GM/DL (3.2-4.5); BILIRUBIN,TOTAL 0.7 MG/DL (0.1-1.0); CALCIUM 8.7 MG/DL (8.5-10.1); CREATININE SERUM 0.88 MG/DL (0.60-1.30); POTASSIUM 3.7 MMOL/L (3.6-5.0); TOTAL PROTEIN 5.7 GM/DL (6.4-8.2)
[2022-08-06] MEDS: inSUlin ASPART (NovoLOG) 1 UNIT/0.01 ML (CHARGE PER UNIT) SQ SCH ×3 (06:24→17:56)
[2022-08-06] MEDS: HYDROXYCHLOROQUINE 200 MG (PLAQUENIL) TAB PO SCH (06:24)
[2022-08-06] MEDS: MULTIVIT W/MINERALS TAB (THERAGRAN M) PO SCH (06:24)
[2022-08-06 07:26] VITALS: BP 132/62
[2022-08-06] MEDS: OMEGA 3 (FISH OIL) 1000 MG CAP PO SCH ×2 (08:28→21:14)
[2022-08-06] MEDS: GABAPENTIN 100 MG (NEURONTIN) CAP PO SCH ×3 (08:28→21:16)
[2022-08-06] MEDS: metFORMIN 500 MG (GLUCOPHAGE) TAB PO SCH ×2 (08:28→17:05)
[2022-08-06] MEDS: KCL 10 MEQ TAB (MICRO K) PO SCH ×3 (08:28→17:05)
[2022-08-06] MEDS: VITAMIN D3 25 MCG (1,000 UNITS) TABLET PO SCH (08:28)
[2022-08-06] MEDS: FOLIC ACID 1 MG TAB PO SCH (08:28)
[2022-08-06] MEDS: LORATADINE (CLARITIN) 10 MG TAB PO SCH (08:28)
[2022-08-06] MEDS: PANTOPRAZOLE 40 MG (PROTONIX) TAB PO SCH ×2 (08:28→21:14)
[2022-08-06] MEDS: BACLOFEN 10 MG (LIORESAL) TAB PO SCH ×3 (08:28→21:16)
[2022-08-06] MEDS: SUCRALFATE 1 GM (CARAFATE) TAB PO SCH ×2 (08:28→21:16)
[2022-08-06] MEDS: morphine ER 15 MG (MS CONTIN) TAB PO SCH ×2 (08:28→21:15)
[2022-08-06] MEDS: polyethylene glycoL POWDER 17 GM (MIRALAX) PACK PO SCH ×2 (08:41→21:27)
[2022-08-06] MEDS: SENNA W/DOCUSATE (SENOKOT S) TABLET PO SCH ×2 (08:41→21:27)
[2022-08-06] MEDS: DOCUSATE SODIUM 100 MG (COLACE) CAP PO SCH ×2 (08:41→21:27)
--- NOTE | 2022-08-06 10:39 | Occupational Ther Daily Note ---
OT Current Status-Daily Note Subjective Pt was up in w/c upon arrival. Pt stated that she has already brushed her teeth, washed her face and applied deodorant and would like to get dressed now. Appearance Pt was left in w/c with present. All needs within reach. Mental Status/Objective Patient Orientation: Person, Confused Acute change in mental status: 1 Inattention: 2 Disorganized thinkin Altered level of consciousness: 0 ADL-Treatment Therapy Code Descriptions/Definitions Functional [place] Measure: 0=Not Assessed/NA 4=Minimal Assistance 1=Total Assistance 5=Supervision or Setup 2=Maximal Assistance 6=Modified [place] 3=Moderate Assistance 7=Complete IndependenceSCALE: Activities may be completed with or without assistive devices. 7-Lskhsvcrgd-kcorzqc completes the activity by him/herself with no assistance from a helper. 5-Set-up or Clean-up Assistance-helper sets up or cleans up; patient completes activity. [place] assists only prior to or following the activity. 4-Supervision or Touching Assistance-helper provides verbal cues and/or touching/steadying and/or contact guard assistance as patient completes activity. Assistance may be provided throughout the activity or intermittently. 3-Partial/Moderate Assistance-helper does LESS THAN HALF the effort. [place] lifts, holds or supports trunk or limbs, but provides less than half the effort. 2-Substantial/Maximal Assistance-helper does MORE THAN HALF the effort. [place] lifts or holds trunk or limbs and provides more than half the effort. 4-Hqoquzqwf-mafguf does ALL the effort. Patient does none of the effort to complete the activity. Or, the assistance of 2 or more helpers is required for the patient to complete the activity. If activity was not attempted, code reason: 7-Patient Refused. 9-Not Applicable-not attempted and the patient did not perform the activity befo re the current illness, exacerbation or injury. 10-Not Attempted due to Environmental Limitations-(lack of equipment, weather re straints, etc.). 88-Not Attempted due to Medical Conditions or Safety Concerns. Upper Body Dressing (QC): 5 Lower Body Dressing (QC): 3 On/Off Footwear: 4 Sit to stand transfers were mod assist x2 but moved to min assist x1 once standing and stable. She still needed increased cues for proper sitting technique to reduce the chance of falling/slipping out of chair. Pt appeared much more cognitively aware today and was able to remember how to use AE while dressing. She donned pants with min-mod assist but was able to use AE appropriately and thread bilateral legs through pants independently. Once standing she needs assist and cues for pulling pants up. For donning socks, she again was able to appropriately use sock aide with no cues or assist, which is a cognitive improvement since last session. Other Treatment Pt performed UE exercises with pvc bar and a 2 lb weight 1x15 in all planes to improve functional performance in ADLs, and improve her UE strength, and ROM. She tolerated all exercises well and did not need many rest breaks. She stated that "they felt good" and that she "needed that". She was able to hold bar at 90 degrees and at 160 degrees for 1 minute each without fatiguing. Pt performed w/c pushups x10 to improve strength with transfers and functional performance in ADLs, but was not able to clear bottom from w/c. She performed sit<>stand transfers x2 at parallel bars with mod assist x2, then stood for ~1-2 minutes, practicing weight shifting, and taking hands off of the parallel bars to improve balance for ADL tasks such as pulling up/down pants for dressing. Education OT Patient Education: Correct positioning, Energy conservation, Exercise program, Home exercise program, Modified ADL techniques, Progress toward Goal/Update tx plan, Purpose of tx/functional activities, Reviewed precautions, Rehab process, Safety issues, Transfer techniques, Use of adapted equipment, W/C management Teaching Recipient: Patient Teaching Methods: Demonstration, Discussion Response to Teaching: Verbalize Understanding, Reinforcement Needed OT Short Term Goals Short Term Goals Time Frame: Aug 13, 2022 Eatin Oral hygiene: 5 Toileting hygiene: 2 Shower/bathe self: 3 Upper body dressin Lower body dressin Putting on/taking off footwear: 2 OT Prison Goals Prison Goals Time Frame: Aug 24, 2022 Acute change in mental status: 1 Inattention: 2 Disorganized thinkin Altered level of consciousness: 0 Eating (QC): 6 Oral Hygiene (QC): 6 Toileting Hygiene (QC): 4 Shower/Bathe Self (QC): 5 Upper Body Dressing (QC): 5 Lower Body Dressing (QC): 4 On/Off Footwear (QC): 4 Additional Goals: 1-Demonstrate ADL Tasks, 2-Verbalize Understanding, 3- ImproveStrength/Singh 1=Demonstrate adherence to instructed precautions during ADL tasks. 2=Patient will verbalize/demonstrate understanding of assistive devices/modifications for ADL. 3=Patient will improve strength/tolerance for activity to enable patient to perform ADL's. OT Education/Plan Problem List/Assessment Assessment: Decreased Activ Tolerance, Decreased Safety Aware, Decreased UE Strength, Dependent Transfers, Edema, Impaired Bed Mobility, Impaired Cognition, Impaired Coordination, Impaired Funct Balance, Impaired I ADL's, Impaired Self- Care Skills, Restricted Funct UE ROM Discharge Recommendations Plan/Recommendations: Continue POC Treatment Plan/Plan of Care Treatment,Training & Education: Yes Patient would benefit from OT for education, treatment and training to promote independence in ADL's, mobility, safety and/or upper extremity function for ADL's. Plan of Care: ADL Retraining, Caregiver Training, Cognitive Retraining, Concurrent Therapy, Functional Mobility, Group Exercise/Act as Ind, UE Funct Exercise/Act, W/C Management Training Treatment Duration: Aug 24, 2022 Frequency: At least 5 of 7 days/Wk (IRF) Estimated Hrs Per Day: 1.5 hours per day (75-90 min/day) Agreement: Yes Rehab Potential: Guarded Time/GCodes Start Time: 09:15 Stop Time: 10:30 Total Time Billed (hr/min): 75 Billed Treatment Time 1 visit ADL (15 min) EX x3 (45 min) FA (15 min) Jennifer Hand OT Aug 06, 2022 10:39
--- NOTE | 2022-08-06 10:50 | Speech Therapy Daily Note ---
Speech Daily Progress Note Subjective Date Seen by Provider: Aug 06, 2022 Time Seen by Provider: 08:30 The patient was seated upright in her wheelchair, awake and alert upon entrance to her room by the clinician. The patient greeted the clinician appropriately and was agreeable to participation in the cognitive linguistic treatment session. Objective The patient appears with improved orientation on this date. The patient is seated at the bathroom counter top, independently washing her own face with a wash cloth, putting on deodorant and brushing her own teeth. The patient is independently oriented in month, day of the week, and year. The patient stated, "I have struggled with day of the week and have been a couple days off lately." The patient stated "I think they may have switched up my pain medication, I just feel a little better." The patient was unable to provide specification towards what "felt better" today versus the previous week. The patient does remain on topic on this date, asking the clinician appropriately questions and sharing information accurately. The patient was able to brainstorm specific situations that need to improve prior to discharge including, "I need to make sure I don't need two people to move, that's too many, I've got to do that by myself." The patient requested a commode upon discharge, however, the clinician encouraged the patient to continue attempts (with aid) to use the restroom. Assessment Assessment Current Status: Fair Progress Treatment Plan Continue Plan of Care Speech Short Term Goals Short Term Goals Short Term Goals 1. The patient will demonstrate 75% accuracy with memory exercises with mild clinician verbal prompting. Time Frame-STG: One Week. Speech Plug Machine Operator Goals Plug Machine Operator Goals The patient will demonstrate improved cognitive linguistic skills for safe discharge to the least restrictive environment. Time Frame: Ten Days. Speech-Plan Treatment Plan Speech Therapy Treatment Plan: Continue Plan of Care Treatment Duration: Jul 31, 2022 Frequency: Modified Program (IRF) Estimated Hrs Per Day: .5 hour per day Rehab Potential: Guarded Safety Risks/Education Teaching Recipient: Patient Teaching Methods: Discussion Response to Teaching: Reinforcement Needed Education Topics Provided: Barriers to Safe Discharge Time Speech Therapy Time In: 08:30 Speech Therapy Time Out: 09:00 Total Billed Time: 30 Billed Treatment Time 1, MIRIANKEITH YASSINE PARRA Aug 06, 2022 10:50
--- NOTE | 2022-08-06 11:03 | PM&R Progress Note ---
Subjective HPI/CC On Admission Date Seen by Provider: Aug 06, 2022 Time Seen by Provider: 09:00 Subjective/Events-last exam 08/06/2022: Pt is doing a lot better Loose stools noted She is very slow but doing a lot better Dr. Shankar wants a ferritin, which will be skewed due to the inflammatory component of the hip fracture but that is his ordinary labs 08/05/2022: Improved status Pain control No falls Family at bedside 08/04/2022: Improved status BM++ Pain actually improved O2 maintained 08/03/2022: Pain remains 08/27 Left hip was concerning therapy so obtained xray and no misalignment noted I told patient and that it will be unrealistic to attain pain control due to h/o chronic pain with nerve ablations and severe pain each and every day Respiratory drive diminished due to increased MSO4 so will decrease back to 15mg PO BID from 20mg No BM so increased laxatives and added SSE 08/02/2022: No major changes Pain is a limitation Increased pain meds Chronic pain requiring skilled nursing pain management will preclude good pain control due to tolerance 08/01/2022: No major issues except chronic pain issues along with acute pain issues No falls Increasing mobility with wheelchair Catastrophic injury for person who struggles with chronic pain 07/31/2022: Patient doing fairly well Pain is an issue and I had started the long acting MSO4 which seems to have helped No falls Took shower No other issues Review of Systems General: Fatigue, Malaise Musculoskeletal: leg pain Objective Exam Vital Signs Vital Signs Date Time Temp Pulse Resp B/P (MAP) Pulse Ox O2 Delivery O2 Flow Rate FiO2 08/06/22 20:10 36.5 84 24 114/72 (86) 93 Room Air 08/05/22 21:00 2.00 Capillary Refill : General Appearance: No Apparent Distress, WD/WN, Chronically ill HEENT: PERRL/EOMI, Normal ENT Inspection, Pharynx Normal Neck: Full Range of Motion, Normal Inspection, Non Tender, Supple, Carotid Bruit Respiratory: Chest Non Tender, Lungs Clear, Normal Breath Sounds, No Accessory Muscle Use, No Respiratory Distress Cardiovascular: Regular Rate, Rhythm, No Edema, No Gallop, No JVD, No Murmur, Normal Peripheral Pulses Gastrointestinal: Normal Bowel Sounds, No Organomegaly, No Pulsatile Mass, Non Tender, Soft Back: Normal Inspection, No CVA Tenderness, No Vertebral Tenderness Extremity: Normal Capillary Refill, Normal Inspection, Normal Range of Motion (except left leg), Non Tender, No Calf Tenderness, No Pedal Edema Neurologic/Psychiatric: Alert, Oriented x3, No Motor/Sensory Deficits, Normal Mood/Affect, Abnormal Gait, Motor Weakness (left leg) Skin: Normal Color, Warm/Dry Lymphatic: No Adenopathy Results/Procedures Lab Laboratory Tests 08/06/22 05:45 Patient resulted labs reviewed. FIM Transfers Therapy Code Descriptions/Definitions Functional [place] Measure: 0=Not Assessed/NA 4=Minimal Assistance 1=Total Assistance 5=Supervision or Setup 2=Maximal Assistance 6=Modified [place] 3=Moderate Assistance 7=Complete IndependenceSCALE: Activities may be completed with or without assistive devices. 1-Wncwaythlr-lcvwceh completes the activity by him/herself with no assistance from a helper. 5-Set-up or Clean-up Assistance-helper sets up or cleans up; patient completes activity. [place] assists only prior to or following the activity. 4-Supervision or Touching Assistance-helper provides verbal cues and/or touching/steadying and/or contact guard assistance as patient completes activity. Assistance may be provided throughout the activity or intermittently. 3-Partial/Moderate Assistance-helper does LESS THAN HALF the effort. [place] l ifts, holds or supports trunk or limbs, but provides less than half the effort. 2-Substantial/Maximal Assistance-helper does MORE THAN HALF the effort. [place] lifts or holds trunk or limbs and provides more than half the effort. 8-Hvfbioiol-aolgud does ALL the effort. Patient does none of the effort to complete the activity. Or, the assistance of 2 or more helpers is required for the patient to complete the activity. If activity was not attempted, code reason: 7-Patient Refused. 9-Not Applicable-not attempted and the patient did not perform the activity before the current illness, exacerbation or injury. 10-Not Attempted due to Environmental Limitations-(lack of equipment, weather restraints, etc.). 88-Not Attempted due to Medical Conditions or Safety Concerns. Roll Left to Right (QC): 2 Sit to Lying (QC): 1 Sit to Stand (QC): 2 Chair/Tdf-fl-Lzint Xfer(QC): 3 Car Transfer (QC): 2 Gait Training Does the Patient Walk?: Yes Distance: 3' Walk 10 feet (QC): 88 Walk 50 ft with 2 Turns(QC): 88 Walk 150 ft (QC): 88 Walking 10ft/uneven surface-QC: 88 Gait Persons Needed: 2 Gait Assistive Device: Parallel Bars Wheelchair Training Does the Pt Use a Wheelchair?: Yes Distance: 50 Wheel 50 ft with 2 turns (QC): 5 Wheel 150 ft (QC): 5 Type of Wheelchair: Manual Stair Training #of Steps: 0 1 Step (curb) (QC): 88 4 Steps (QC): 88 12 Steps (QC): 88 Balance Picking up an Object (QC): 88 ADL-Treatment Eating (QC): 6 Oral Hygiene (QC): 6 Shower/Bathe Self (QC): 3 Upper Body Dressing (QC): 5 Lower Body Dressing (QC): 3 On/Off Footwear (QC): 4 Toileting Hygiene (QC): 1 Toilet Transfer (QC): 1 Assessment/Plan Assessment and Plan Assess & Plan/Chief Complaint Assessment: s/p left hip fracture repair Acute on chronic severe pain 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
--- NOTE | 2022-08-06 12:07 | Physical Therapy Daily Note ---
PT Daily Note-Current Subjective Pt sitting in [facility] in room with Sp visiting upon arrival. Pt agrees to PT to focus on walking. Pain Numeric Pain Scale: 10-Worst Possible Pain Location: Incisional, Left Location Body Site: Hip Pain Description: Ache Comment: Pt reports 10/10 pain but visually doesn't demonstrate this, 6/10 at rest. Section J - Health Conditions 1. Rarely or not at all 2. Occasionally 3. Frequently 4. Almost constantly 8. Unable to answer Pain Effect on Sleep: 3 Pain Interference with Therapy: 4 Pain Interference w/Day-to-Day: 4 Mental Status Patient Orientation: Person, Place, Situation Transfers SCALE: Activities may be completed with or without assistive devices. 2-Xnvzpnywfa-onuzmds completes the activity by him/herself with no assistance from a helper. 5-Set-up or Clean-up Assistance-helper sets up or cleans up; patient completes activity. [place] assists only prior to or following the activity. 4-Supervision or Touching Assistance-helper provides verbal cues and/or touching/steadying and/or contact guard assistance as patient completes activity. Assistance may be provided throughout the activity or intermittently. 3-Partial/Moderate Assistance-helper does LESS THAN HALF the effort. [place] lifts, holds or supports trunk or limbs, but provides less than half the effort. 2-Substantial/Maximal Assistance-helper does MORE THAN HALF the effort. [place] lifts or holds trunk or limbs and provides more than half the effort. 0-Gqgyxmhpw-ijwszz does ALL the effort. Patient does none of the effort to complete the activity. Or, the assistance of 2 or more helpers is required for the patient to complete the activity. If activity was not attempted, code reason: 7-Patient Refused. 9-Not Applicable-not attempted and the patient did not perform the activity before the current illness, exacerbation or injury. 10-Not Attempted due to Environmental Limitations-(lack of equipment, weather restraints, etc.). 88-Not Attempted due to Medical Conditions or Safety Concerns. Sit to Stand (QC): 2 Weight Bearing Right Lower Extremity: Right Full Weight Bearing Left Lower Extremity: Left Weight Bearing/Tolerated Gait Training Does the Patient Walk?: Yes Distance: 8' x2 Walk 10 feet (QC): 3 Gait Persons Needed: 1 Gait Assistive Device: Parallel Bars Wheelchair Training Does the Pt Use a Wheelchair?: Yes Wheel 50 ft with 2 turns (QC): 4 Wheel 150 ft (QC): 4 Type of Wheelchair: Manual Treatments Pt declines need for BR. Pt propels [facility] in hallway as pt is not yet walking extended distances. Pt takes RB as UE is fatigued at end of [facility] mobility. Pt stands from [facility] w/o pulling on //bars (pushes from [facility] instead). Pt able to amb. //bars once before needing to sit and rest. Pt amb. //bars again and rests. Pt completes limited Seated Ex before propelling WC back to room. Pt again declines need for BR. Pt resting in [facility] where pt prefers to eat lunch. All needs met, call light next to Sp. Assessment Current Status: Good Progress Pt is walking farther, less assistance needed to stand today and decreased vocalized pain. PT Senior Care Goals Senior Care Goals PT [employer] Goals Time Frame: Aug 24, 2022 Roll Left & Right (QC): 4 Sit to Lying (QC): 4 Lying-Sitting on Side/Bed(QC): 4 Sit to Stand (QC): 4 Chair/Dta-hm-Polpk Xfer(QC): 4 Toilet Transfer (QC): 4 Car Transfer (QC): 4 Does the Patient Walk: Yes Walk 10 feet (QC): 4 Walk 50ft with 2 Turns (QC): 4 Walk 150 ft (QC): 3 Walking 10ft on Uneven Surface: 4 1 Step (curb) (QC): 3 4 Steps (QC): 3 12 Steps (QC): 3 Picking up an Object (QC): 4 Does the Pt use WC or Scooter?: Yes Wheel 50 feet with 2 turns (QC: 6 Type: Manual Wheel 150 feet: 6 PT Plan Problem List Problem List: Activity Tolerance, Functional Strength, Gait, Transfer Treatment/Plan Treatment Plan: Continue Plan of Care Treatment Plan: Bed Mobility, Education, Functional Activity Singh, Functional Strength, Group Therapy, Gait, Safety, Therapeutic Exercise, Transfers Treatment Duration: Sep 14, 2022 Frequency: At least 5 of 7 days/Wk (IRF) Estimated Hrs Per Day: 1.5 hours per day Patient and/or Family Agrees t: Yes Safety Risks/Education Patient Education: Gait Training, Transfer Techniques, Correct Positioning, Safety Issues Teaching Recipient: Patient Teaching Methods: Discussion Response to Teaching: Verbalize Understanding Time/GCodes Time In: 1100 Time Out: 1215 Total Billed Treatment Time: 75 Total Billed Treatment 1, WCH (20m), FA x2 (25m) & GT x2 (30m) JHONNY [employer]PERINTENDENT Aug 06, 2022 12:07
--- NOTE | 2022-08-06 12:33 | Progress Note ---
LIA JARAMILLO 08/06/22 1233: Progress Note CC: Debility following left hip fracture with slow recovery and severe acute on chronic pain HPI: This is a 71yoWF clinic patient of [facility] who has a h/o DM, CVA and chronic and debilitating pain managed by pain management specialty who presents from [facility] s/p left hip fracture repair. Pain continues to be an issue and realistic expectations were provided considering her chronic pain is managed by the pain entry level management and we do not have that specialty here at [facility]. Leg spasms seem to be the issue. When I visited today, is at bedside and patient is in wheelchair. Patient shares issue of left thigh and knee pain. Bowels and bladder are functioning well. Today will provide OMM to patient for assistance with recovery ROS: General: Fatigue, Malaise Musculoskeletal: leg pain Exam: General Appearance: No Apparent Distress, WD/WN, Chronically ill HEENT: PERRL/EOMI Respiratory: Chest Non Tender, Lungs Clear, Normal Breath Sounds, No Accessory Muscle Use, No Respiratory Distress Cardiovascular: RRR, No Edema, No Gallop, No JVD, No Murmur, Normal Peripheral Pulses Extremity: Normal Capillary Refill, Normal Inspection, Normal Range of Motion (except left leg), Non Tender, No Calf Tenderness, No Pedal Edema, hypertonicity of left rectus femoris muscle, taut left IT band Neurologic/Psychiatric: Alert, Oriented x3, No Motor/Sensory Deficits, Normal Mood/Affect, Motor Weakness (left leg) Skin: Normal Color, Warm/Dry Lymphatic: No Adenopathy Assessment: s/p left hip fracture repair Acute on chronic severe pain managed as outpatient by pain entry level management CVA hx RA DM HTN CAD previous CABG GIB hx Post op anemia s/p 3 units of blood Iron deficiency Acute hypokalemia somatic dysfunction due to left hip fracture s/p repair Hypertonic left rectus femoris muscle Taut left IT band Plan: Myofascial release and soft tissue technique of left IT band and rectus femoris muscle Lymphatic drainage of left thigh ADORE IVEY DO 08/07/22 0524: Supervisory-Addendum Brief Verification & Attestation Participated in pt care: history, MDM, physical Personally performed: exam, history, MDM, supervision of care Care discussed with: Medical Student Procedures: n/a Results interpretation: Verified all documentation Verification and Attestation of Medical Student E/M Service A medical student performed and documented this service in my presence. I reviewed and verified all information documented by the medical student and made modifications to such information, when appropriate. I personally performed the physical exam and medical decision making. Adore Ivey, Aug 07, 2022,05:24 LIA JARAMILLO Aug 06, 2022 12:33 ADORE IVEY DO Aug 07, 2022 05:24
[2022-08-06] MEDS ORDERED: INSU100I14 SQ (15:19)
[2022-08-06] MEDS ORDERED: INSU200I4 SQ (15:19)
[2022-08-06] MEDS ORDERED: VITA-259 PO (15:19)
[2022-08-06 20:10] VITALS: BP 114/72
[2022-08-06] MEDS: ROSUVASTATIN 20 MG (CRESTOR) TABLET PO SCH (21:15)
[2022-08-06] MEDS: DULoxetine 30 MG (CYMBALTA) CAP PO SCH (21:15)
[2022-08-06] MEDS: ALPRAZolam 0.25 MG (XANAX) TAB PO PRN (21:16)
--- NOTE | 2022-08-07 05:46 | PM&R Progress Note ---
Subjective HPI/CC On Admission Date Seen by Provider: Aug 07, 2022 Time Seen by Provider: 09:00 Subjective/Events-last exam 08/07/2022: Pt is doing a little better Loose stools after no BM, so will monitor closely Ferritin is normal at 97 Decreasing pain medication 08/06/2022: Pt is doing a lot better Loose stools noted She is very slow but doing a lot better Dr. Shankar wants a ferritin, which will be skewed due to the inflammatory component of the hip fracture but that is his ordinary labs 08/05/2022: Improved status Pain control No falls Family at bedside 08/04/2022: Improved status BM++ Pain actually improved O2 maintained 08/03/2022: Pain remains 08/27 Left hip was concerning therapy so obtained xray and no misalignment noted I told patient and that it will be unrealistic to attain pain control due to h/o chronic pain with nerve ablations and severe pain each and every day Respiratory drive diminished due to increased MSO4 so will decrease back to 15mg PO BID from 20mg No BM so increased laxatives and added SSE 08/02/2022: No major changes Pain is a limitation Increased pain meds 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 will preclude good pain control due to tolerance 08/01/2022: No major issues except chronic pain issues along with acute pain issues No falls Increasing mobility with wheelchair Catastrophic injury for person who struggles with chronic pain 07/31/2022: Patient doing fairly well Pain is an issue and I had started the long acting MSO4 which seems to have helped No falls Took shower No other issues Review of Systems General: Fatigue, Malaise Objective Exam Vital Signs Vital Signs Date Time Temp Pulse Resp B/P (MAP) Pulse Ox O2 Delivery O2 Flow Rate FiO2 08/07/22 21:00 92 Nasal Cannula 08/07/22 19:54 36.6 87 20 134/72 (92) 08/07/22 06:34 0.00 Capillary Refill : General Appearance: No Apparent Distress, WD/WN, Chronically ill HEENT: PERRL/EOMI, Normal ENT Inspection, Pharynx Normal Neck: Full Range of Motion, Normal Inspection, Non Tender, Supple, Carotid Bruit Respiratory: Chest Non Tender, Lungs Clear, Normal Breath Sounds, No Accessory Muscle Use, No Respiratory Distress Cardiovascular: Regular Rate, Rhythm, No Edema, No Gallop, No JVD, No Murmur, Normal Peripheral Pulses Gastrointestinal: Normal Bowel Sounds, No Organomegaly, No Pulsatile Mass, Non Tender, Soft Back: Normal Inspection, No CVA Tenderness, No Vertebral Tenderness Extremity: Normal Capillary Refill, Normal Inspection, Normal Range of Motion (except left leg), Non Tender, No Calf Tenderness, No Pedal Edema Neurologic/Psychiatric: Alert, Oriented x3, No Motor/Sensory Deficits, Normal Mood/Affect, Abnormal Gait, Motor Weakness (left leg) Skin: Normal Color, Warm/Dry Lymphatic: No Adenopathy Results/Procedures Lab Patient resulted labs reviewed. FIM Transfers Therapy Code Descriptions/Definitions Functional [place] Measure: 0=Not Assessed/NA 4=Minimal Assistance 1=Total Assistance 5=Supervision or Setup 2=Maximal Assistance 6=Modified [place] 3=Moderate Assistance 7=Complete IndependenceSCALE: Activities may be completed with or without assistive devices. 0-Lwaptbhosz-nrdgwxn completes the activity by him/herself with no assistance from a helper. 5-Set-up or Clean-up Assistance-helper sets up or cleans up; patient completes activity. [place] assists only prior to or following the activity. 4-Supervision or Touching Assistance-helper provides verbal cues and/or touching/steadying and/or contact guard assistance as patient completes activity. Assistance may be provided throughout the activity or intermittently. 3-Partial/Moderate Assistance-helper does LESS THAN HALF the effort. [place] lifts, holds or supports trunk or limbs, but provides less than half the effort. 2-Substantial/Maximal Assistance-helper does MORE THAN HALF the effort. [place] lifts or holds trunk or limbs and provides more than half the effort. 0-Xhuyhonsz-ghedmg does ALL the effort. Patient does none of the effort to complete the activity. Or, the assistance of 2 or more helpers is required for the patient to complete the activity. If activity was not attempted, code reason: 7-Patient Refused. 9-Not Applicable-not attempted and the patient did not perform the activity before the current illness, exacerbation or injury. 10-Not Attempted due to Environmental Limitations-(lack of equipment, weather restraints, etc.). 88-Not Attempted due to Medical Conditions or Safety Concerns. Roll Left to Right (QC): 2 Sit to Lying (QC): 1 Sit to Stand (QC): 2 Chair/Hwj-zb-Odajm Xfer(QC): 3 Car Transfer (QC): 2 Gait Training Does the Patient Walk?: Yes Distance: 8' x2 Walk 10 feet (QC): 3 Walk 50 ft with 2 Turns(QC): 88 Walk 150 ft (QC): 88 Walking 10ft/uneven surface-QC: 88 Gait Persons Needed: 1 Gait Assistive Device: Parallel Bars Wheelchair Training Does the Pt Use a Wheelchair?: Yes Distance: 50 Wheel 50 ft with 2 turns (QC): 4 Wheel 150 ft (QC): 4 Type of Wheelchair: Manual Stair Training #of Steps: 0 1 Step (curb) (QC): 88 4 Steps (QC): 88 12 Steps (QC): 88 Balance Picking up an Object (QC): 88 ADL-Treatment Eating (QC): 6 Oral Hygiene (QC): 6 Shower/Bathe Self (QC): 3 Upper Body Dressing (QC): 5 Lower Body Dressing (QC): 3 On/Off Footwear (QC): 4 Toileting Hygiene (QC): 1 Toilet Transfer (QC): 1 Assessment/Plan Assessment and Plan Assess & Plan/Chief Complaint Assessment: s/p left hip fracture repair Acute on chronic severe pain 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
[2022-08-07] MEDS: inSUlin ASPART (NovoLOG) 1 UNIT/0.01 ML (CHARGE PER UNIT) SQ SCH ×2 (06:47→12:33)
[2022-08-07] MEDS: HYDROXYCHLOROQUINE 200 MG (PLAQUENIL) TAB PO SCH (06:47)
[2022-08-07] MEDS: MULTIVIT W/MINERALS TAB (THERAGRAN M) PO SCH (06:47)
[2022-08-07 07:38] VITALS: BP 112/62
--- NOTE | 2022-08-07 08:54 | Occupational Ther Daily Note ---
OT Current Status-Daily Note Subjective Pt was in recliner upon arrival. She reported wanting to shower. Appearance Pt left in w/c with all needs within reach. Mental Status/Objective Patient Orientation: Person, Confused Acute change in mental status: 1 Inattention: 2 Disorganized thinkin Altered level of consciousness: 0 ADL-Treatment Therapy Code Descriptions/Definitions Functional Clinch Measure: 0=Not Assessed/NA 4=Minimal Assistance 1=Total Assistance 5=Supervision or Setup 2=Maximal Assistance 6=Modified Clinch 3=Moderate Assistance 7=Complete IndependenceSCALE: Activities may be completed with or without assistive devices. 3-Ynkabbpdgk-kubffvf completes the activity by him/herself with no assistance fr om a helper. 5-Set-up or Clean-up Assistance-helper sets up or cleans up; patient completes activity. [place] assists only prior to or following the activity. 4-Supervision or Touching Assistance-helper provides verbal cues and/or touching/steadying and/or contact guard assistance as patient completes activity. Assistance may be provided throughout the activity or intermittently. 3-Partial/Moderate Assistance-helper does LESS THAN HALF the effort. [place] lifts, holds or supports trunk or limbs, but provides less than half the effort. 2-Substantial/Maximal Assistance-helper does MORE THAN HALF the effort. [place] lifts or holds trunk or limbs and provides more than half the effort. 7-Eppadazcr-zydvvz does ALL the effort. Patient does none of the effort to complete the activity. Or, the assistance of 2 or more helpers is required for the patient to complete the activity. If activity was not attempted, code reason: 7-Patient Refused. 9-Not Applicable-not attempted and the patient did not perform the activity before the current illness, exacerbation or injury. 10-Not Attempted due to Environmental Limitations-(lack of equipment, weather restraints, etc.). 88-Not Attempted due to Medical Conditions or Safety Concerns. Oral Hygiene (QC): 6 Shower/Bathe Self (QC): 4 Upper Body Dressing (QC): 5 Lower Body Dressing (QC): 3 On/Off Footwear: 5 Sit <> stand transfers completed with mod assist x2. She repeatedly needs verbal cues to push with her legs, stand up straight and to not push back while trying to stand up. Her pain tolerance has gotten better, as she has not yelled in pain or thrown herself back in the chair. Pt showered 100% seated. Pt needs reminders to not stand up in the shower, even after reminding her at the beginning. She requires mod verbal cues for sequencing during shower. Initially pt used canine deputy and required cues for orientation of pants and threading legs, but then was able to thread bilateral legs with no AE or cues. She remains needing consistent min- mod assistance for pulling up pants while staying balanced. Pt needs no cues or assistance for donning socks with sock aide. Pt is still showing slight confusion and short term memory deficits. Education OT Patient Education: Correct positioning, Energy conservation, Modified ADL techniques, Progress toward Goal/Update tx plan, Purpose of tx/functional activities, Reviewed precautions, Rehab process, Safety issues, Transfer techniques, Use of adapted equipment, W/C management Teaching Recipient: Patient Teaching Methods: Demonstration, Discussion Response to Teaching: Verbalize Understanding, Reinforcement Needed OT Short Term Goals Short Term Goals Time Frame: Aug 13, 2022 Eatin Oral hygiene: 5 Toileting hygiene: 2 Shower/bathe self: 3 Upper body dressin Lower body dressin Putting on/taking off footwear: 2 OT [employer] Goals Longterm Goals Time Frame: Aug 24, 2022 Acute change in mental status: 1 Inattention: 2 Disorganized thinkin Altered level of consciousness: 0 Eating (QC): 6 Oral Hygiene (QC): 6 Toileting Hygiene (QC): 4 Shower/Bathe Self (QC): 5 Upper Body Dressing (QC): 5 Lower Body Dressing (QC): 4 On/Off Footwear (QC): 4 Additional Goals: 1-Demonstrate ADL Tasks, 2-Verbalize Understanding, 3- ImproveStrength/Singh 1=Demonstrate adherence to instructed precautions during ADL tasks. 2=Patient will verbalize/demonstrate understanding of assistive devices/modifications for ADL. 3=Patient will improve strength/tolerance for activity to enable patient to perform ADL's. OT Education/Plan Problem List/Assessment Assessment: Decreased Activ Tolerance, Decreased Safety Aware, Decreased UE Strength, Dependent Transfers, Edema, Impaired Bed Mobility, Impaired Cognition, Impaired Coordination, Impaired Funct Balance, Impaired I ADL's, Impaired Self- Care Skills, Restricted Funct UE ROM Discharge Recommendations Plan/Recommendations: Continue POC Treatment Plan/Plan of Care Treatment,Training & Education: Yes Patient would benefit from OT for education, treatment and training to promote independence in ADL's, mobility, safety and/or upper extremity function for ADL's. Plan of Care: ADL Retraining, Caregiver Training, Cognitive Retraining, Concurrent Therapy, Functional Mobility, Group Exercise/Act as Ind, UE Funct Exercise/Act, W/C Management Training Treatment Duration: Aug 24, 2022 Frequency: At least 5 of 7 days/Wk (IRF) Estimated Hrs Per Day: 1.5 hours per day (75-90 min/day) Agreement: Yes Rehab Potential: Guarded Time/GCodes Start Time: 07:45 Stop Time: 09:00 Total Time Billed (hr/min): 75 Billed Treatment Time 1 visit ADL x5 Jennifer Hand OT Aug 07, 2022 08:54
[2022-08-07] MEDS: SUCRALFATE 1 GM (CARAFATE) TAB PO SCH ×2 (09:03→21:04)
[2022-08-07] MEDS: morphine ER 15 MG (MS CONTIN) TAB PO SCH ×2 (09:04→21:05)
[2022-08-07] MEDS: KCL 10 MEQ TAB (MICRO K) PO SCH ×3 (09:04→17:10)
[2022-08-07] MEDS: FOLIC ACID 1 MG TAB PO SCH (09:04)
[2022-08-07] MEDS: SENNA W/DOCUSATE (SENOKOT S) TABLET PO SCH ×2 (09:04→21:05)
[2022-08-07] MEDS: DOCUSATE SODIUM 100 MG (COLACE) CAP PO SCH ×2 (09:04→21:04)
[2022-08-07] MEDS: PANTOPRAZOLE 40 MG (PROTONIX) TAB PO SCH ×2 (09:04→21:04)
[2022-08-07] MEDS: VITAMIN D3 25 MCG (1,000 UNITS) TABLET PO SCH (09:04)
[2022-08-07] MEDS: metFORMIN 500 MG (GLUCOPHAGE) TAB PO SCH (09:04)
[2022-08-07] MEDS: GABAPENTIN 100 MG (NEURONTIN) CAP PO SCH ×3 (09:04→21:04)
[2022-08-07] MEDS: LORATADINE (CLARITIN) 10 MG TAB PO SCH (09:05)
[2022-08-07] MEDS: OMEGA 3 (FISH OIL) 1000 MG CAP PO SCH ×2 (09:05→21:04)
[2022-08-07] MEDS: BACLOFEN 10 MG (LIORESAL) TAB PO SCH ×3 (09:05→21:04)
[2022-08-07] MEDS: polyethylene glycoL POWDER 17 GM (MIRALAX) PACK PO SCH ×2 (09:05→21:05)
[2022-08-07] MEDS ORDERED: [UNRECOGNIZED DRUG - REMARK] SC SCH ×2 (11:00→11:30)
--- NOTE | 2022-08-07 11:09 | Speech Therapy Daily Note ---
Speech Daily Progress Note Subjective Date Seen by Provider: Aug 07, 2022 Time Seen by Provider: 10:00 The patient was seated upright in bed, awake and alert upon entrance to her room by the clinician. The patient greeted the clinician appropriately and was agreeable to participation in the cognitive linguistic treatment session. Objective The patient completed the SLUMS on this date to assess for progression towards skilled therapy goals, as well as, return to baseline cognitive function. The patient displayed a result of +27/30 on the SLUMS which correlates to the patient's baseline cognitive function prior to the period of re-assessment. The patient displayed an error with a subtraction equation and recalled four of five single words following a five minute delay. The patient participates in spontaneous conversation appropriately and intermittently requires redirection to topic/task. Per patient's , the patient is displaying cognitive baseline function at this time. Assessment Assessment Current Status: Good Progress Treatment Plan Continue Plan of Care Speech Short Term Goals Short Term Goals Short Term Goals 1. The patient will demonstrate 75% accuracy with memory exercises with mild clinician verbal prompting. Time Frame-STG: One Week. Speech Dough Puncher Goals Dough Puncher Goals The patient will demonstrate improved cognitive linguistic skills for safe discharge to the least restrictive environment. Time Frame: Ten Days. Speech-Plan Treatment Plan Speech Therapy Treatment Plan: Continue Plan of Care Treatment Duration: Jul 31, 2022 Frequency: Modified Program (IRF) Estimated Hrs Per Day: .5 hour per day Rehab Potential: Guarded Safety Risks/Education Teaching Recipient: Patient, Significant Other Teaching Methods: Discussion Response to Teaching: Verbalize Understanding, Reinforcement Needed Education Topics Provided: Results, Recommendations Time Speech Therapy Time In: 10:00 Speech Therapy Time Out: 10:30 Total Billed Time: 30 Billed Treatment Time EDENILSON Spence [facility] Aug 07, 2022 11:09
--- NOTE | 2022-08-07 13:31 | Physical Therapy Daily Note ---
PT Daily Note-Current Subjective Pt sitting in recliner visiting with Sp upon arrival. Pt agrees to PT. Pain Location: Left Location Body Site: Hip Pain Description: Ache Section J - Health Conditions 1. Rarely or not at all 2. Occasionally 3. Frequently 4. Almost constantly 8. Unable to answer Pain Effect on Sleep: 3 Pain Interference with Therapy: 4 Pain Interference w/Day-to-Day: 4 Mental Status Patient Orientation: Person, Place, Situation Transfers SCALE: Activities may be completed with or without assistive devices. 6-Iitphxrbye-jpwsceu completes the activity by him/herself with no assistance from a helper. 5-Set-up or Clean-up Assistance-helper sets up or cleans up; patient completes activity. [place] assists only prior to or following the activity. 4-Supervision or Touching Assistance-helper provides verbal cues and/or touching/steadying and/or contact guard assistance as patient completes activity. Assistance may be provided throughout the activity or intermittently. 3-Partial/Moderate Assistance-helper does LESS THAN HALF the effort. [place] lifts, holds or supports trunk or limbs, but provides less than half the effort. 2-Substantial/Maximal Assistance-helper does MORE THAN HALF the effort. [place] lifts or holds trunk or limbs and provides more than half the effort. 3-Conxboxts-kpyiqu does ALL the effort. Patient does none of the effort to complete the activity. Or, the assistance of 2 or more helpers is required for the patient to complete the activity. If activity was not attempted, code reason: 7-Patient Refused. 9-Not Applicable-not attempted and the patient did not perform the activity before the current illness, exacerbation or injury. 10-Not Attempted due to Environmental Limitations-(lack of equipment, weather restraints, etc.). 88-Not Attempted due to Medical Conditions or Safety Concerns. Sit to Stand (QC): 3 Weight Bearing Right Lower Extremity: Right Full Weight Bearing Left Lower Extremity: Left Weight Bearing/Tolerated Gait Training Does the Patient Walk?: Yes Distance: 50' Walk 10 feet (QC): 4 Walk 50 ft with 2 Turns(QC): 4 Gait Persons Needed: 1 Gait Assistive Device: FWW Wheelchair Training Does the Pt Use a Wheelchair?: Yes Type of Wheelchair: Manual Treatments Pt focuses on sit to stands to improve independence with transfers as well as amb. in hallway to improve mobility. Assessment Current Status: Good Progress Pt has improved with mobility and independence of transfers. Pt is visibly less although pt doesn't rate. PT Correction Goals Correction Goals PT Taper Machine Goals Time Frame: Aug 24, 2022 Roll Left & Right (QC): 4 Sit to Lying (QC): 4 Lying-Sitting on Side/Bed(QC): 4 Sit to Stand (QC): 4 Chair/Zly-fx-Vkhkf Xfer(QC): 4 Toilet Transfer (QC): 4 Car Transfer (QC): 4 Does the Patient Walk: Yes Walk 10 feet (QC): 4 Walk 50ft with 2 Turns (QC): 4 Walk 150 ft (QC): 3 Walking 10ft on Uneven Surface: 4 1 Step (curb) (QC): 3 4 Steps (QC): 3 12 Steps (QC): 3 Picking up an Object (QC): 4 Does the Pt use WC or Scooter?: Yes Wheel 50 feet with 2 turns (QC: 6 Type: Manual Wheel 150 feet: 6 PT Plan Problem List Problem List: Activity Tolerance Treatment/Plan Treatment Plan: Continue Plan of Care Treatment Plan: Bed Mobility, Education, Functional Activity Singh, Functional Strength, Group Therapy, Gait, Safety, Therapeutic Exercise, Transfers Treatment Duration: Sep 14, 2022 Frequency: At least 5 of 7 days/Wk (IRF) Estimated Hrs Per Day: 1.5 hours per day Patient and/or Family Agrees t: Yes Safety Risks/Education Patient Education: Gait Training, Transfer Techniques, Correct Positioning, Safety Issues Teaching Recipient: Patient Teaching Methods: Discussion Response to Teaching: Verbalize Understanding Time/GCodes Time In: 1100 Time Out: 1215 Total Billed Treatment Time: 75 Total Billed Treatment 1, FA x2 (30m), GT x2 (30m) & EX (15m) JHONNY VERNON GRAPE CUTTER Aug 07, 2022 13:31
[2022-08-07 19:54] VITALS: BP 134/72
[2022-08-07] MEDS: ROSUVASTATIN 20 MG (CRESTOR) TABLET PO SCH (21:04)
[2022-08-07] MEDS: DULoxetine 30 MG (CYMBALTA) CAP PO SCH (21:05)
[2022-08-07] MEDS: inSUlin ASPART (NovoLOG) 1 UNIT/0.01 ML (CHARGE PER UNIT) SC SCH (21:34)
--- NOTE | 2022-08-08 05:58 | PM&R Progress Note ---
Subjective HPI/CC On Admission Date Seen by Provider: Aug 08, 2022 Time Seen by Provider: 08:30 Subjective/Events-last exam 08/08/2022: Pt is doing a lot better Pain is improved Wondering if she gets her pain medications Chronic pain issues and narcotic dependence is a risk 08/07/2022: Pt is doing a little better Loose stools after no BM, so will monitor closely Ferritin is normal at 97 Decreasing pain medication 08/06/2022: Pt is doing a lot better Loose stools noted She is very slow but doing a lot better Dr. Shankar wants a ferritin, which will be skewed due to the inflammatory component of the hip fracture but that is his ordinary labs 08/05/2022: Improved status Pain control No falls Family at bedside 08/04/2022: Improved status BM++ Pain actually improved O2 maintained 08/03/2022: Pain remains 08/27 Left hip was concerning therapy so obtained xray and no misalignment noted I told patient and that it will be unrealistic to attain pain control due to h/o chronic pain with nerve ablations and severe pain each and every day Respiratory drive diminished due to increased MSO4 so will decrease back to 15mg PO BID from 20mg No BM so increased laxatives and added SSE 08/02/2022: No major changes Pain is a limitation Increased pain meds 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 will preclude good pain control due to tolerance 08/01/2022: No major issues except chronic pain issues along with acute pain issues No falls Increasing mobility with wheelchair Catastrophic injury for person who struggles with chronic pain 07/31/2022: Patient doing fairly well Pain is an issue and I had started the long acting MSO4 which seems to have helped No falls Took shower No other issues Review of Systems General: Fatigue, Malaise Musculoskeletal: leg pain Objective Exam Vital Signs Vital Signs Date Time Temp Pulse Resp B/P (MAP) Pulse Ox O2 Delivery O2 Flow Rate FiO2 08/08/22 09:09 Room Air 08/08/22 07:25 36.4 82 18 121/55 (77) 91 08/07/22 06:34 0.00 Capillary Refill : General Appearance: No Apparent Distress, WD/WN, Chronically ill HEENT: PERRL/EOMI, Normal ENT Inspection, Pharynx Normal Neck: Full Range of Motion, Normal Inspection, Non Tender, Supple, Carotid Bruit Respiratory: Chest Non Tender, Lungs Clear, Normal Breath Sounds, No Accessory Muscle Use, No Respiratory Distress Cardiovascular: Regular Rate, Rhythm, No Edema, No Gallop, No JVD, No Murmur, Normal Peripheral Pulses Gastrointestinal: Normal Bowel Sounds, No Organomegaly, No Pulsatile Mass, Non Tender, Soft Back: Normal Inspection, No CVA Tenderness, No Vertebral Tenderness Extremity: Normal Capillary Refill, Normal Inspection, Normal Range of Motion (except left leg), Non Tender, No Calf Tenderness, No Pedal Edema Neurologic/Psychiatric: Alert, Oriented x3, No Motor/Sensory Deficits, Normal Mood/Affect, Abnormal Gait, Motor Weakness (left leg) Skin: Normal Color, Warm/Dry Lymphatic: No Adenopathy Results/Procedures Lab Patient resulted labs reviewed. FIM Transfers Therapy Code Descriptions/Definitions Functional [place] Measure: 0=Not Assessed/NA 4=Minimal Assistance 1=Total Assistance 5=Supervision or Setup 2=Maximal Assistance 6=Modified [place] 3=Moderate Assistance 7=Complete IndependenceSCALE: Activities may be completed with or without assistive devices. 2-Jlledobguy-aimupfy completes the activity by him/herself with no assistance from a helper. 5-Set-up or Clean-up Assistance-helper sets up or cleans up; patient completes activity. [place] assists only prior to or following the activity. 4-Supervision or Touching Assistance-helper provides verbal cues and/or touching/steadying and/or contact guard assistance as patient completes activity. Assistance may be provided throughout the activity or intermittently. 3-Partial/Moderate Assistance-helper does LESS THAN HALF the effort. [place] lifts, holds or supports trunk or limbs, but provides less than half the effort. 2-Substantial/Maximal Assistance-helper does MORE THAN HALF the effort. [place] lifts or holds trunk or limbs and provides more than half the effort. 6-Szppitkxy-niduqe does ALL the effort. Patient does none of the effort to complete the activity. Or, the assistance of 2 or more helpers is required for the patient to complete the activity. If activity was not attempted, code reason: 7-Patient Refused. 9-Not Applicable-not attempted and the patient did not perform the activity before the current illness, exacerbation or injury. 10-Not Attempted due to Environmental Limitations-(lack of equipment, weather restraints, etc.). 88-Not Attempted due to Medical Conditions or Safety Concerns. Roll Left to Right (QC): 2 Sit to Lying (QC): 1 Sit to Stand (QC): 3 Chair/Vot-bj-Duhmt Xfer(QC): 3 Car Transfer (QC): 2 Gait Training Does the Patient Walk?: Yes Distance: 50' Walk 10 feet (QC): 4 Walk 50 ft with 2 Turns(QC): 4 Walk 150 ft (QC): 88 Walking 10ft/uneven surface-QC: 88 Gait Persons Needed: 1 Gait Assistive Device: FWW Wheelchair Training Does the Pt Use a Wheelchair?: Yes Distance: 50 Wheel 50 ft with 2 turns (QC): 4 Wheel 150 ft (QC): 4 Type of Wheelchair: Manual Stair Training #of Steps: 0 1 Step (curb) (QC): 88 4 Steps (QC): 88 12 Steps (QC): 88 Balance Picking up an Object (QC): 88 ADL-Treatment Eating (QC): 6 Oral Hygiene (QC): 6 Shower/Bathe Self (QC): 4 Upper Body Dressing (QC): 5 Lower Body Dressing (QC): 3 On/Off Footwear (QC): 5 Toileting Hygiene (QC): 1 Toilet Transfer (QC): 1 Assessment/Plan Assessment and Plan Assess & Plan/Chief Complaint Assessment: s/p left hip fracture repair Acute on chronic severe pain 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 outpatient 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
[2022-08-08] MEDS: inSUlin ASPART (NovoLOG) 1 UNIT/0.01 ML (CHARGE PER UNIT) SC SCH ×4 (06:21→20:17)
[2022-08-08] MEDS: MULTIVIT W/MINERALS TAB (THERAGRAN M) PO SCH (06:27)
[2022-08-08] MEDS: HYDROXYCHLOROQUINE 200 MG (PLAQUENIL) TAB PO SCH (06:27)
[2022-08-08 07:25] VITALS: BP 121/55
--- NOTE | 2022-08-08 08:46 | Occupational Ther Daily Note ---
OT Current Status-Daily Note Subjective Pt continues to report 8/10 pain at start of session, however does not verbalize pain during functional activities. Appearance Pt left sitting in w/c, all needs within reach at OT departure. Mental Status/Objective Patient Orientation: Person, Place, Situation Attachments: IV (port) Acute change in mental status: 1 Inattention: 2 Disorganized thinkin Altered level of consciousness: 0 ADL-Treatment Therapy Code Descriptions/Definitions Functional [place] Measure: 0=Not Assessed/NA 4=Minimal Assistance 1=Total Assistance 5=Supervision or Setup 2=Maximal Assistance 6=Modified [place] 3=Moderate Assistance 7=Complete IndependenceSCALE: Activities may be completed with or without assistive devices. 0-Zhdgvmsrlh-ybgwpfg completes the activity by him/herself with no assistance from a helper. 5-Set-up or Clean-up Assistance-helper sets up or cleans up; patient completes activity. [place] assists only prior to or following the activity. 4-Supervision or Touching Assistance-helper provides verbal cues and/or touching/steadying and/or contact guard assistance as patient completes activity. Assistance may be provided throughout the activity or intermittently. 3-Partial/Moderate Assistance-helper does LESS THAN HALF the effort. [place] lifts, holds or supports trunk or limbs, but provides less than half the effort. 2-Substantial/Maximal Assistance-helper does MORE THAN HALF the effort. [place] lifts or holds trunk or limbs and provides more than half the effort. 5-Tarevsrfu-vaqmtn does ALL the effort. Patient does none of the effort to complete the activity. Or, the assistance of 2 or more helpers is required for the patient to complete the activity. If activity was not attempted, code reason: 7-Patient Refused. 9-Not Applicable-not attempted and the patient did not perform the activity before the current illness, exacerbation or injury. 10-Not Attempted due to Environmental Limitations-(lack of equipment, weather restraints, etc.). 88-Not Attempted due to Medical Conditions or Safety Concerns. Eating (QC): 6 Oral Hygiene (QC): 6 Upper Body Dressing (QC): 5 Lower Body Dressing (QC): 3 On/Off Footwear: 5 Toileting Hygiene (QC): 3 Toilet Transfer (QC): 3 Dressing tasks performed seated at EOB. Min cue to initiate use of pneumatic deicer inspector after several failed attempts to thread LLE. After cue, extra time only required. Pt did not require use of AE when threading RLE. Mod a x1 to stand from elevated bed. Pt able to manage clothing over hips with steadying assist, extra time and reminders to keep one hand on walker. Re-education on wearing looser fitting clothing to improve ease of clothing management. OT donned makeda hose. Pt able to don bilateral socks with use of sock aid and extra time. She ambulated to the bathroom with walker and min a. Min cues for safety and walker management. Grooming activities performed independently while seated at w/c level Other Treatment Pt participated in UE exercises with 2# dumbbell. Focus on improving strength and endurance needed for functional transfers and adls. Min cues for technique. Pt able to complete all joints through full range. 1x12 all planes. Short rest breaks needed, more after shoulder exercises. Education OT Patient Education: Correct positioning, Energy conservation, Exercise program, Modified ADL techniques, Progress toward Goal/Update tx plan, Purpose of tx/functional activities, Rehab process, Safety issues, Transfer techniques, Use of adapted equipment Teaching Recipient: Patient Teaching Methods: Demonstration, Discussion Response to Teaching: Verbalize Understanding, Return Demonstration, Reinforcement Needed OT Short Term Goals Short Term Goals Time Frame: Aug 13, 2022 Eatin Oral hygiene: 5 Toileting hygiene: 2 Shower/bathe self: 3 Upper body dressin Lower body dressin Putting on/taking off footwear: 2 OT Flour Blender Helper Goals Halfway Goals Time Frame: Aug 24, 2022 Acute change in mental status: 1 Inattention: 2 Disorganized thinkin Altered level of consciousness: 0 Eating (QC): 6 Oral Hygiene (QC): 6 Toileting Hygiene (QC): 4 Shower/Bathe Self (QC): 5 Upper Body Dressing (QC): 5 Lower Body Dressing (QC): 4 On/Off Footwear (QC): 4 Additional Goals: 1-Demonstrate ADL Tasks, 2-Verbalize Understanding, 3- ImproveStrength/Singh 1=Demonstrate adherence to instructed precautions during ADL tasks. 2=Patient will verbalize/demonstrate understanding of assistive devices/modifications for ADL. 3=Patient will improve strength/tolerance for activity to enable patient to perform ADL's. OT Education/Plan Problem List/Assessment Assessment: Decreased Activ Tolerance, Decreased Safety Aware, Decreased UE Strength, Edema, Impaired Cognition, Impaired Funct Balance, Impaired Self-Care Skills Discharge Recommendations Plan/Recommendations: Continue POC Therapy Discharge Recommendati: Post Acute OT Treatment Plan/Plan of Care Treatment,Training & Education: Yes Patient would benefit from OT for education, treatment and training to promote independence in ADL's, mobility, safety and/or upper extremity function for ADL's. Plan of Care: ADL Retraining, Caregiver Training, Cognitive Retraining, Concurrent Therapy, Functional Mobility, Group Exercise/Act as Ind, UE Funct Exercise/Act, W/C Management Training Treatment Duration: Aug 24, 2022 Frequency: At least 5 of 7 days/Wk (IRF) Estimated Hrs Per Day: 1.5 hours per day (75-90 min/day) Agreement: Yes Rehab Potential: Guarded Time/GCodes Start Time: 07:30 Stop Time: 08:45 Total Time Billed (hr/min): 75 Billed Treatment Time 1 visit ADL x4 (55 min) Ex (20 min) Jennifer Hand OT Aug 08, 2022 08:46
[2022-08-08] MEDS: VITAMIN D3 25 MCG (1,000 UNITS) TABLET PO SCH (08:54)
[2022-08-08] MEDS: DOCUSATE SODIUM 100 MG (COLACE) CAP PO SCH ×2 (08:54→20:16)
[2022-08-08] MEDS: GABAPENTIN 100 MG (NEURONTIN) CAP PO SCH ×3 (08:54→20:17)
[2022-08-08] MEDS: polyethylene glycoL POWDER 17 GM (MIRALAX) PACK PO SCH ×2 (08:55→20:17)
[2022-08-08] MEDS: FOLIC ACID 1 MG TAB PO SCH (08:55)
[2022-08-08] MEDS: SUCRALFATE 1 GM (CARAFATE) TAB PO SCH ×2 (08:55→20:16)
[2022-08-08] MEDS: PANTOPRAZOLE 40 MG (PROTONIX) TAB PO SCH ×2 (08:55→20:17)
[2022-08-08] MEDS: KCL 10 MEQ TAB (MICRO K) PO SCH ×3 (08:55→17:43)
[2022-08-08] MEDS: SENNA W/DOCUSATE (SENOKOT S) TABLET PO SCH ×2 (08:55→20:16)
[2022-08-08] MEDS: OMEGA 3 (FISH OIL) 1000 MG CAP PO SCH ×2 (08:55→20:17)
[2022-08-08] MEDS: BACLOFEN 10 MG (LIORESAL) TAB PO SCH ×3 (08:55→20:16)
[2022-08-08] MEDS: LORATADINE (CLARITIN) 10 MG TAB PO SCH (08:55)
[2022-08-08] MEDS: morphine ER 15 MG (MS CONTIN) TAB PO SCH ×2 (08:56→20:16)
--- NOTE | 2022-08-08 10:05 | Speech Therapy Daily Note ---
Speech Daily Progress Note Subjective Date Seen by Provider: Aug 08, 2022 Time Seen by Provider: 09:30 The patient was seated upright in her wheelchair, awake and alert upon entrance to her room by the clinician. The patient greeted the clinician appropriately and was agreeable to participation in the cognitive linguistic treatment session. The patient has two family members present at bedside. Objective The patient reports she is "feeling better, stronger" in comparison to prior treatment sessions. The patient was able to independently locate orientation information from the in room white board. The patient completed "Functional Daily Math" activities on this date which included due dates of specific bills, calculating monthly payments, subtracting double digits, and calculating percentages. The patient displayed 100% accuracy on the task, self-correcting on occurrence of an error. The patient and states the patient completes all monthly bill paying, etc. Per patient, the day before she was admitted, she made a $100 error in their joint account. Due to this report, the clinician and patient will work on checkbook balancing and financial equations throughout subsequent treatment sessions. Assessment Assessment Current Status: Fair Progress Treatment Plan Continue Plan of Care Speech Short Term Goals Short Term Goals Short Term Goals 1. The patient will demonstrate 75% accuracy with memory exercises with mild clinician verbal prompting. Time Frame-STG: One Week. Speech Integration Director Goals [facility] Goals The patient will demonstrate improved cognitive linguistic skills for safe discharge to the least restrictive environment. Time Frame: Ten Days. Speech-Plan Treatment Plan Speech Therapy Treatment Plan: Continue Plan of Care Treatment Duration: Jul 31, 2022 Frequency: Modified Program (IRF) Estimated Hrs Per Day: .5 hour per day Rehab Potential: Guarded Safety Risks/Education Teaching Recipient: Patient, Family, Significant Other Teaching Methods: Discussion Response to Teaching: Verbalize Understanding Education Topics Provided: Results, Plan of Care Time Speech Therapy Time In: 09:30 Speech Therapy Time Out: 10:00 Total Billed Time: 30 Billed Treatment Time 1EDENILSON ELIZABETH ST Aug 08, 2022 10:05
--- NOTE | 2022-08-08 13:07 | Physical Therapy Daily Note ---
PT Daily Note-Current Subjective Pt sitting in [facility] in room upon arrival. Pt agrees to PT. Pain Section J - Health Conditions 1. Rarely or not at all 2. Occasionally 3. Frequently 4. Almost constantly 8. Unable to answer Pain Effect on Sleep: 3 Pain Interference with Therapy: 4 Pain Interference w/Day-to-Day: 4 Mental Status Patient Orientation: Person, Place, Situation Transfers SCALE: Activities may be completed with or without assistive devices. 7-Qbslhptlpv-wcocnfs completes the activity by him/herself with no assistance from a helper. 5-Set-up or Clean-up Assistance-helper sets up or cleans up; patient completes activity. [place] assists only prior to or following the activity. 4-Supervision or Touching Assistance-helper provides verbal cues and/or touching/steadying and/or contact guard assistance as patient completes activity. Assistance may be provided throughout the activity or intermittently. 3-Partial/Moderate Assistance-helper does LESS THAN HALF the effort. [place] lifts, holds or supports trunk or limbs, but provides less than half the effort. 2-Substantial/Maximal Assistance-helper does MORE THAN HALF the effort. [place] lifts or holds trunk or limbs and provides more than half the effort. 8-Ukczmlcly-uxomtz does ALL the effort. Patient does none of the effort to complete the activity. Or, the assistance of 2 or more helpers is required for the patient to complete the activity. If activity was not attempted, code reason: 7-Patient Refused. 9-Not Applicable-not attempted and the patient did not perform the activity before the current illness, exacerbation or injury. 10-Not Attempted due to Environmental Limitations-(lack of equipment, weather restraints, etc.). 88-Not Attempted due to Medical Conditions or Safety Concerns. Sit to Stand (QC): 3 Weight Bearing Right Lower Extremity: Right Full Weight Bearing Left Lower Extremity: Left Weight Bearing/Tolerated Gait Training Does the Patient Walk?: Yes Distance: 60', 100', 125' Walk 10 feet (QC): 4 Walk 50 ft with 2 Turns(QC): 4 Gait Persons Needed: 1 Gait Assistive Device: FWW Wheelchair Training Does the Pt Use a Wheelchair?: Yes Type of Wheelchair: Manual Exercises Seated Therapy Exercises: Ankle pumps, Long arc quads, Hip flexion, Glut set Seated Reps: 10 Treatments Tf to standing and amb. in hallway x3, taking RB in [facility] after each walk. Pt focuses on sit to stands, walking & Seated EX. Pt returns to room to rest in recliner with all needs met, call light in hand. Assessment Current Status: Good Progress Pt has increased distance of walking and is more self motivated. Pt still reports pain with walking but demonstrated as more tolerable. PT [place]cher Goals [place] Goals PT [facility] Living Goals Time Frame: Aug 24, 2022 Roll Left & Right (QC): 4 Sit to Lying (QC): 4 Lying-Sitting on Side/Bed(QC): 4 Sit to Stand (QC): 4 Chair/Ndu-py-Sbyuf Xfer(QC): 4 Toilet Transfer (QC): 4 Car Transfer (QC): 4 Does the Patient Walk: Yes Walk 10 feet (QC): 4 Walk 50ft with 2 Turns (QC): 4 Walk 150 ft (QC): 3 Walking 10ft on Uneven Surface: 4 1 Step (curb) (QC): 3 4 Steps (QC): 3 12 Steps (QC): 3 Picking up an Object (QC): 4 Does the Pt use WC or Scooter?: Yes Wheel 50 feet with 2 turns (QC: 6 Type: Manual Wheel 150 feet: 6 PT Plan Problem List Problem List: Activity Tolerance, Functional Strength, Transfer Treatment/Plan Treatment Plan: Continue Plan of Care Treatment Plan: Bed Mobility, Education, Functional Activity Singh, Functional Strength, Group Therapy, Gait, Safety, Therapeutic Exercise, Transfers Treatment Duration: Sep 14, 2022 Frequency: At least 5 of 7 days/Wk (IRF) Estimated Hrs Per Day: 1.5 hours per day Patient and/or Family Agrees t: Yes Safety Risks/Education Patient Education: Gait Training, Transfer Techniques, Correct Positioning, Safety Issues Teaching Recipient: Patient, Significant Other Teaching Methods: Discussion Response to Teaching: Verbalize Understanding Time/GCodes Time In: 1100 Time Out: 1215 Total Billed Treatment Time: 75 Total Billed Treatment 1, GT x2 (30m), FA x2 (25m) & EX (20m) JHONNY VERNON HL7 DEVELOPER Aug 08, 2022 13:07
--- NOTE | 2022-08-08 16:26 | Progress Note ---
LIA JARAMILLO 08/08/22 1626: Progress Note CC: Debility following left hip fracture with slow recovery and severe acute on chronic pain HPI: This is a 71yoWF clinic patient of [facility] who has a h/o DM, CVA and chronic and debilitating pain managed by pain management specialty who presents from [facility] s/p left hip fracture repair. Pain continues to be an issue and realistic expectations were provided considering her chronic pain is managed by the pain manager project management and we do not have that specialty here at [facility]. Leg spasms seem to be the issue. Patient is lying in recliner when I visited today. Patient shares issue of left thigh and knee pain, though it is controlled. Continuing to make improvements Bowels and bladder are functioning well. Reports that previous OMM treatment provided some relief to her leg pain and discomfort. Today will provide OMM to patient for assistance with recovery. ROS: General: Fatigue, Malaise Musculoskeletal: leg pain Exam: General Appearance: No Apparent Distress, WD/WN, Chronically ill HEENT: PERRL/EOMI Respiratory: Chest Non Tender, Lungs Clear, Normal Breath Sounds, No Accessory Muscle Use, No Respiratory Distress Cardiovascular: RRR, No Edema, No Gallop, No JVD, No Murmur, Normal Peripheral Pulses Extremity: Normal Capillary Refill, Normal Inspection, Normal Range of Motion (except left leg), Non Tender, No Calf Tenderness, No Pedal Edema, hypertonicity of left rectus femoris muscle, taut left IT band Neurologic/Psychiatric: Alert, Oriented x3, No Motor/Sensory Deficits, Normal M ood/Affect, Motor Weakness (left leg) Skin: Normal Color, Warm/Dry Lymphatic: No Adenopathy Assessment: s/p left hip fracture repair Acute on chronic severe pain managed as outpatient by pain manager project management CVA hx RA DM HTN CAD previous CABG GIB hx Post op anemia s/p 3 units of blood Iron deficiency Acute hypokalemia somatic dysfunction due to left hip fracture s/p repair Hypertonic left rectus femoris muscle Taut left IT band Plan: Myofascial release and soft tissue technique of left IT band and rectus femoris muscle Lymphatic drainage of left thigh ADORE IVEY DO 08/08/222112: Supervisory-Addendum Brief Verification & Attestation Participated in pt care: history, MDM, physical Personally performed: exam, history, MDM, supervision of care Care discussed with: Medical Student Procedures: n/a Results interpretation: Verified all documentation Verification and Attestation of Medical Student E/M Service A medical student performed and documented this service in my presence. I reviewed and verified all information documented by the medical student and made modifications to such information, when appropriate. I personally performed the physical exam and medical decision making. Adore Ivey, Aug 08, 2022,21:13 LIA JARAMILLO Aug 08, 2022 16:26 ADORE IVEY DO Aug 08, 2022 21:13
[2022-08-08] MEDS: DULoxetine 30 MG (CYMBALTA) CAP PO SCH (20:15)
[2022-08-08] MEDS: ROSUVASTATIN 20 MG (CRESTOR) TABLET PO SCH (20:16)
[2022-08-08] MEDS: inSUlin ASPART (NovoLOG) 1 UNIT/0.01 ML (CHARGE PER UNIT) SQ SCH (20:22)
[2022-08-08 20:55] VITALS: BP 100/52
--- NOTE | 2022-08-09 05:44 | PM&R Progress Note ---
Subjective HPI/CC On Admission Date Seen by Provider: Aug 09, 2022 Time Seen by Provider: 12:30 Subjective/Events-last exam 08/09/2022: Patient doing a lot better Talking about going home rather than skilled facility Pain is pretty well controlled Bowels are moving 08/08/2022: Pt is doing a lot better Pain is improved Wondering if she gets her pain medications Chronic pain issues and narcotic dependence is a risk 08/07/2022: Pt is doing a little better Loose stools after no BM, so will monitor closely Ferritin is normal at 97 Decreasing pain medication 08/06/2022: Pt is doing a lot better Loose stools noted She is very slow but doing a lot better Dr. Shankar wants a ferritin, which will be skewed due to the inflammatory component of the hip fracture but that is his ordinary labs 08/05/2022: Improved status Pain control No falls Family at bedside 08/04/2022: Improved status BM++ Pain actually improved O2 maintained 08/03/2022: Pain remains 08/27 Left hip was concerning therapy so obtained xray and no misalignment noted I told patient and that it will be unrealistic to attain pain control due to h/o chronic pain with nerve ablations and severe pain each and every day Respiratory drive diminished due to increased MSO4 so will decrease back to 15mg PO BID from 20mg No BM so increased laxatives and added SSE 08/02/2022: No major changes Pain is a limitation Increased pain meds Chronic pain requiring intermediate project manager pain management will preclude good pain control due to tolerance 08/01/2022: No major issues except chronic pain issues along with acute pain issues No falls Increasing mobility with wheelchair Catastrophic injury for person who struggles with chronic pain 07/31/2022: Patient doing fairly well Pain is an issue and I had started the long acting MSO4 which seems to have helped No falls Took shower No other issues Review of Systems General: Fatigue, Malaise Objective Exam Vital Signs Vital Signs Date Time Temp Pulse Resp B/P (MAP) Pulse Ox O2 Delivery O2 Flow Rate FiO2 08/09/22 21:15 Room Air 08/09/22 20:30 36.8 89 20 101/53 (69) 92 2.00 Capillary Refill : General Appearance: No Apparent Distress, WD/WN, Chronically ill HEENT: PERRL/EOMI, Normal ENT Inspection, Pharynx Normal Neck: Full Range of Motion, Normal Inspection, Non Tender, Supple, Carotid Bruit Respiratory: Chest Non Tender, Lungs Clear, Normal Breath Sounds, No Accessory Muscle Use, No Respiratory Distress Cardiovascular: Regular Rate, Rhythm, No Edema, No Gallop, No JVD, No Murmur, Normal Peripheral Pulses Gastrointestinal: Normal Bowel Sounds, No Organomegaly, No Pulsatile Mass, Non Tender, Soft Back: Normal Inspection, No CVA Tenderness, No Vertebral Tenderness Extremity: Normal Capillary Refill, Normal Inspection, Normal Range of Motion (except left leg), Non Tender, No Calf Tenderness, No Pedal Edema Neurologic/Psychiatric: Alert, Oriented x3, No Motor/Sensory Deficits, Normal Mood/Affect, Abnormal Gait, Motor Weakness (left leg) Skin: Normal Color, Warm/Dry Lymphatic: No Adenopathy Results/Procedures Lab Patient resulted labs reviewed. FIM Transfers Therapy Code Descriptions/Definitions Functional [place] Measure: 0=Not Assessed/NA 4=Minimal Assistance 1=Total Assistance 5=Supervision or Setup 2=Maximal Assistance 6=Modified [place] 3=Moderate Assistance 7=Complete IndependenceSCALE: Activities may be completed with or without assistive devices. 3-Qyqpksegcd-auafynt completes the activity by him/herself with no assistance from a helper. 5-Set-up or Clean-up Assistance-helper sets up or cleans up; patient completes activity. [place] assists only prior to or following the activity. 4-Supervision or Touching Assistance-helper provides verbal cues and/or touching/steadying and/or contact guard assistance as patient completes activity. Assistance may be provided throughout the activity or intermittently. 3-Partial/Moderate Assistance-helper does LESS THAN HALF the effort. [place] lifts, holds or supports trunk or limbs, but provides less than half the effort. 2-Substantial/Maximal Assistance-helper does MORE THAN HALF the effort. [place] lifts or holds trunk or limbs and provides more than half the effort. 7-Rotzwxemd-mmswzo does ALL the effort. Patient does none of the effort to complete the activity. Or, the assistance of 2 or more helpers is required for the patient to complete the activity. If activity was not attempted, code reason: 7-Patient Refused. 9-Not Applicable-not attempted and the patient did not perform the activity before the current illness, exacerbation or injury. 10-Not Attempted due to Environmental Limitations-(lack of equipment, weather restraints, etc.). 88-Not Attempted due to Medical Conditions or Safety Concerns. Roll Left to Right (QC): 2 Sit to Lying (QC): 1 Sit to Stand (QC): 3 Chair/Xkh-ir-Elorn Xfer(QC): 3 Car Transfer (QC): 2 Gait Training Does the Patient Walk?: Yes Distance: 60', 100', 125' Walk 10 feet (QC): 4 Walk 50 ft with 2 Turns(QC): 4 Walk 150 ft (QC): 88 Walking 10ft/uneven surface-QC: 88 Gait Persons Needed: 1 Gait Assistive Device: FWW Wheelchair Training Does the Pt Use a Wheelchair?: Yes Distance: 50 Wheel 50 ft with 2 turns (QC): 4 Wheel 150 ft (QC): 4 Type of Wheelchair: Manual Stair Training #of Steps: 0 1 Step (curb) (QC): 88 4 Steps (QC): 88 12 Steps (QC): 88 Balance Picking up an Object (QC): 88 ADL-Treatment Eating (QC): 6 Oral Hygiene (QC): 6 Shower/Bathe Self (QC): 4 Upper Body Dressing (QC): 5 Lower Body Dressing (QC): 3 On/Off Footwear (QC): 5 Toileting Hygiene (QC): 3 Toilet Transfer (QC): 3 Assessment/Plan Assessment and Plan Assess & Plan/Chief Complaint Assessment: s/p left hip fracture repair Acute on chronic severe pain 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 CVA hx RA DM HTN CAD previous CABG GIB hx Post op anemia s/p 3 units of blood Iron deficiency Acute hypokalemia Plan: PT OT Pain control BM regimen Fall risk 07/31/2022: Replace potassium Supportive care 08/01/2022: Increase pain med doses 08/02/2022: Monitor pain 08/03/2022: Decrease MSO4 due to resp drive decrease SSE for narcotic bowel 08/04/2022: BM regimen successful 08/05/2022: Supportive care 08/06/2022: Monitor pain 08/07/2022: Monitor pain 08/08/2022: Monitor pain 08/09/2022: Bowel regimen Pain control (1) Intertrochanteric fracture of left hip Status: Acute (2) Iron deficiency anemia EDY IVEY DO Aug 09, 2022 05:44
[2022-08-09] MEDS: HYDROXYCHLOROQUINE 200 MG (PLAQUENIL) TAB PO SCH (05:46)
[2022-08-09] MEDS: inSUlin ASPART (NovoLOG) 1 UNIT/0.01 ML (CHARGE PER UNIT) SC SCH ×4 (05:46→21:07)
[2022-08-09] MEDS: MULTIVIT W/MINERALS TAB (THERAGRAN M) PO SCH (05:46)
[2022-08-09 08:00] VITALS: BP 99/62
[2022-08-09] MEDS: FOLIC ACID 1 MG TAB PO SCH (08:36)
[2022-08-09] MEDS: KCL 10 MEQ TAB (MICRO K) PO SCH ×3 (08:36→17:47)
[2022-08-09] MEDS: OMEGA 3 (FISH OIL) 1000 MG CAP PO SCH ×2 (08:36→21:06)
[2022-08-09] MEDS: GABAPENTIN 100 MG (NEURONTIN) CAP PO SCH ×3 (08:36→21:06)
[2022-08-09] MEDS: morphine ER 15 MG (MS CONTIN) TAB PO SCH ×2 (08:36→21:06)
[2022-08-09] MEDS: BACLOFEN 10 MG (LIORESAL) TAB PO SCH ×3 (08:36→21:06)
[2022-08-09] MEDS: PANTOPRAZOLE 40 MG (PROTONIX) TAB PO SCH ×2 (08:36→21:06)
[2022-08-09] MEDS: VITAMIN D3 25 MCG (1,000 UNITS) TABLET PO SCH (08:36)
[2022-08-09] MEDS: SENNA W/DOCUSATE (SENOKOT S) TABLET PO SCH ×2 (08:36→21:00)
[2022-08-09] MEDS: SUCRALFATE 1 GM (CARAFATE) TAB PO SCH ×2 (08:36→21:06)
[2022-08-09] MEDS: DOCUSATE SODIUM 100 MG (COLACE) CAP PO SCH ×2 (08:36→21:06)
[2022-08-09] MEDS: LORATADINE (CLARITIN) 10 MG TAB PO SCH (08:36)
[2022-08-09] MEDS: polyethylene glycoL POWDER 17 GM (MIRALAX) PACK PO SCH ×2 (08:38→21:05)
--- NOTE | 2022-08-09 09:01 | Occupational Ther Daily Note ---
OT Current Status-Daily Note Subjective Pt in recliner upon arrival. She requests to take a shower. Appearance Pt left in w/c with all needs within reach. Mental Status/Objective Patient Orientation: Person, Confused Acute change in mental status: 1 Inattention: 2 Disorganized thinkin Altered level of consciousness: 0 ADL-Treatment Therapy Code Descriptions/Definitions Functional [place] Measure: 0=Not Assessed/NA 4=Minimal Assistance 1=Total Assistance 5=Supervision or Setup 2=Maximal Assistance 6=Modified [place] 3=Moderate Assistance 7=Complete IndependenceSCALE: Activities may be completed with or without assistive devices. 8-Ugvddrhkkh-igkdrwc completes the activity by him/herself with no assistance from a helper. 5-Set-up or Clean-up Assistance-helper sets up or cleans up; patient completes activity. [place] assists only prior to or following the activity. 4-Supervision or Touching Assistance-helper provides verbal cues and/or touching/steadying and/or contact guard assistance as patient completes activity. Assistance may be provided throughout the activity or intermittently. 3-Partial/Moderate Assistance-helper does LESS THAN HALF the effort. [place] lifts, holds or supports trunk or limbs, but provides less than half the effort. 2-Substantial/Maximal Assistance-helper does MORE THAN HALF the effort. [place] lifts or holds trunk or limbs and provides more than half the effort. 5-[place]-wqblgp does ALL the effort. Patient does none of the effort to complete the activity. Or, the assistance of 2 or more helpers is required for the patient to complete the activity. If activity was not attempted, code reason: 7-Patient Refused. 9-Not Applicable-not attempted and the patient did not perform the activity before the current illness, exacerbation or injury. 10-Not Attempted due to Environmental Limitations-(lack of equipment, weather restraints, etc.). 88-Not Attempted due to Medical Conditions or Safety Concerns. Oral Hygiene (QC): 6 Shower/Bathe Self (QC): 4 Upper Body Dressing (QC): 5 Lower Body Dressing (QC): 4 On/Off Footwear: 5 Sit <> stand transfers completed with mod assist x1 today. Pt showered 100% seated. Pt needed 1 reminder to not stand up in the shower and required explanation as to why it would not be safe to stand. Pt used instrumentation and controls technician and required cues for threading bilateral legs. She needs daily reminders to don surgical leg first into LB clothing. Pt often disagrees with therapist, stating "that's not what I was told yesterday", "that's not what I have been doing". Therapist donned makeda hose to assist in swelling management in bilateral feet/legs. Pt needs no cues or assistance for donning socks with sock aide. Education OT Patient Education: Correct positioning, Disease process, Energy conservation, Modified ADL techniques, Progress toward Goal/Update tx plan, Purpose of tx/functional activities, Reviewed precautions, Rehab process, Safety issues, Transfer techniques, Use of adapted equipment, W/C management Teaching Recipient: Patient Teaching Methods: Demonstration, Discussion Response to Teaching: Verbalize Understanding, Unable to Return Demonstration, Reinforcement Needed OT Short Term Goals Short Term Goals Time Frame: Aug 13, 2022 Eatin Oral hygiene: 5 Toileting hygiene: 2 Shower/bathe self: 3 Upper body dressin Lower body dressin Putting on/taking off footwear: 2 OT Halfway Goals Halfway Goals Time Frame: Aug 24, 2022 Acute change in mental status: 1 Inattention: 2 Disorganized thinkin Altered level of consciousness: 0 Eating (QC): 6 Oral Hygiene (QC): 6 Toileting Hygiene (QC): 4 Shower/Bathe Self (QC): 5 Upper Body Dressing (QC): 5 Lower Body Dressing (QC): 4 On/Off Footwear (QC): 4 Additional Goals: 1-Demonstrate ADL Tasks, 2-Verbalize Understanding, 3- ImproveStrength/Singh 1=Demonstrate adherence to instructed precautions during ADL tasks. 2=Patient will verbalize/demonstrate understanding of assistive devices/modifications for ADL. 3=Patient will improve strength/tolerance for activity to enable patient to perform ADL's. OT Education/Plan Problem List/Assessment Assessment: Decreased Activ Tolerance, Decreased Safety Aware, Decreased UE St rength, Dependent Transfers, Edema, Impaired Bed Mobility, Impaired Cognition, Impaired Coordination, Impaired Funct Balance, Impaired I ADL's, Impaired Self- Care Skills, Restricted Funct UE ROM Discharge Recommendations Plan/Recommendations: Continue POC Treatment Plan/Plan of Care Treatment,Training & Education: Yes Patient would benefit from OT for education, treatment and training to promote independence in ADL's, mobility, safety and/or upper extremity function for ADL's. Plan of Care: ADL Retraining, Caregiver Training, Cognitive Retraining, Concurrent Therapy, Functional Mobility, Group Exercise/Act as Ind, UE Funct Exercise/Act, W/C Management Training Treatment Duration: Aug 24, 2022 Frequency: At least 5 of 7 days/Wk (IRF) Estimated Hrs Per Day: 1.5 hours per day (75-90 min/day) Agreement: Yes Rehab Potential: Guarded Time/GCodes Start Time: 07:45 Stop Time: 09:00 Total Time Billed (hr/min): 75 Billed Treatment Time 1 visit ADL x5 Jennifer Hand OT Aug 09, 2022 09:01
--- NOTE | 2022-08-09 10:45 | Speech Therapy Daily Note ---
Speech Daily Progress Note Subjective Date Seen by Provider: Aug 09, 2022 Time Seen by Provider: 09:15 The patient was seated upright in her wheelchair, awake and alert upon entrance to her room by the clinician. The patient greeted the clinician appropriately and was agreeable to participation in the cognitive linguistic treatment session. Objective Per patient (and ), the patient was able to accurately complete bills on the prior date, however, did require extended time and self-described "focus." The patient completed check writing and checkbook balancing exercises on this date. The patient was able to transcribe a check without difficulty. The patient displayed two errors with checkbook balancing, totaling close to $1.50. The patient received a verbal cue to re-assess her calculation and was able to identify her error. The patient was encouraged to use a calculator throughout her check writing and have her double check her math. Assessment Assessment Current Status: Fair Progress Treatment Plan Continue Plan of Care Speech Short Term Goals Short Term Goals Short Term Goals 1. The patient will demonstrate 75% accuracy with memory exercises with mild clinician verbal prompting. Time Frame-STG: One Week. Speech Club Room Attendant Goals Detention Goals The patient will demonstrate improved cognitive linguistic skills for safe discharge to the least restrictive environment. Time Frame: Ten Days. Speech-Plan Treatment Plan Speech Therapy Treatment Plan: Continue Plan of Care Treatment Duration: Jul 31, 2022 Frequency: Modified Program (IRF) Estimated Hrs Per Day: .5 hour per day Rehab Potential: Guarded Safety Risks/Education Teaching Recipient: Patient Teaching Methods: Discussion Response to Teaching: Verbalize Understanding Education Topics Provided: Results, Recommendations, Plan of Care Time Speech Therapy Time In: 09:15 Speech Therapy Time Out: 09:45 Total Billed Time: 30 Billed Treatment Time 1, YASSINE MATAMOROS Aug 09, 2022 10:45
--- NOTE | 2022-08-09 11:49 | Physical Therapy Daily Note ---
PT Daily Note-Current Subjective Patient in recliner pre tx, agrees to PT, has 10/10 pain in left hip with activity. Pain Section J - Health Conditions 1. Rarely or not at all 2. Occasionally 3. Frequently 4. Almost constantly 8. Unable to answer Pain Effect on Sleep: 3 Pain Interference with Therapy: 4 Pain Interference w/Day-to-Day: 4 Appearance Patient in recliner post tx with nurse call, phone, tray, all needs met. Mental Status Patient Orientation: Person, Place, Situation Transfers SCALE: Activities may be completed with or without assistive devices. 5-Ozncnwtcoq-droagfi completes the activity by him/herself with no assistance from a helper. 5-Set-up or Clean-up Assistance-helper sets up or cleans up; patient completes activity. [place] assists only prior to or following the activity. 4-Supervision or Touching Assistance-helper provides verbal cues and/or touching/steadying and/or contact guard assistance as patient completes activity. Assistance may be provided throughout the activity or intermittently. 3-Partial/Moderate Assistance-helper does LESS THAN HALF the effort. [place] lifts, holds or supports trunk or limbs, but provides less than half the effort. 2-Substantial/Maximal Assistance-helper does MORE THAN HALF the effort. [place] lifts or holds trunk or limbs and provides more than half the effort. 0-Vbqvhnlpz-ccamuk does ALL the effort. Patient does none of the effort to complete the activity. Or, the assistance of 2 or more helpers is required for the patient to complete the activity. If activity was not attempted, code reason: 7-Patient Refused. 9-Not Applicable-not attempted and the patient did not perform the activity before the current illness, exacerbation or injury. 10-Not Attempted due to Environmental Limitations-(lack of equipment, weather restraints, etc.). 88-Not Attempted due to Medical Conditions or Safety Concerns. Sit to Stand (QC): 3 Chair/Gto-oo-Kqujb Xfer(QC): 4 mod assist for sit to stand Weight Bearing Right Lower Extremity: Right Full Weight Bearing Left Lower Extremity: Left Weight Bearing/Tolerated Gait Training Distance: 150', 100' Walk 10 feet (QC): 4 Walk 50 ft with 2 Turns(QC): 4 Walk 150 ft (QC): 4 Gait Assistive Device: FWW WC follow, very slow ambulation, antalgic, better step through but still poor foot clearance, bears a lot of weight through arms and not much through her left leg Exercises NuStep Minutes: 15 NuStep Workload: 5 Treatments transfers, ambulation, LE ROM and strengthening Assessment Current Status: Fair Progress patient is making very slow progress in functional mobility PT Teacher Counselor Goals Intermediate Goals PT Intermediate Goals Time Frame: Aug 24, 2022 Roll Left & Right (QC): 4 Sit to Lying (QC): 4 Lying-Sitting on Side/Bed(QC): 4 Sit to Stand (QC): 4 Chair/Nwi-aa-Lptok Xfer(QC): 4 Toilet Transfer (QC): 4 Car Transfer (QC): 4 Does the Patient Walk: Yes Walk 10 feet (QC): 4 Walk 50ft with 2 Turns (QC): 4 Walk 150 ft (QC): 3 Walking 10ft on Uneven Surface: 4 1 Step (curb) (QC): 3 4 Steps (QC): 3 12 Steps (QC): 3 Picking up an Object (QC): 4 Does the Pt use WC or Scooter?: Yes Wheel 50 feet with 2 turns (QC: 6 Type: Manual Wheel 150 feet: 6 PT Plan Problem List Problem List: Activity Tolerance, Functional Strength, Safety, Balance, Gait, Transfer, Bed Mobility, ROM Treatment/Plan Treatment Plan: Continue Plan of Care Treatment Plan: Bed Mobility, Education, Functional Activity Singh, Functional Strength, Group Therapy, Gait, Safety, Therapeutic Exercise, Transfers Treatment Duration: Sep 14, 2022 Frequency: At least 5 of 7 days/Wk (IRF) Estimated Hrs Per Day: 1.5 hours per day Patient and/or Family Agrees t: Yes Safety Risks/Education Patient Education: Gait Training, Transfer Techniques, Correct Positioning, Safety Issues Teaching Recipient: Patient Teaching Methods: Demonstration, Discussion Response to Teaching: Reinforcement Needed Time/GCodes Time In: 1100 Time Out: 1200 Total Billed Treatment Time: 60 Total Billed Treatment 1 visit EX 15' FA 45' LAURA RAE PT Aug 09, 2022 11:49
[2022-08-09] MEDS: inSUlin ASPART (NovoLOG) 1 UNIT/0.01 ML (CHARGE PER UNIT) SQ SCH ×2 (12:22→17:47)
--- NOTE | 2022-08-09 14:03 | Physical Therapy Daily Note ---
PT Daily Note-Current Subjective Patient in the BR upon PT arrival. Agreeable to treatment however reports "I hurt all over." Pain Section J - Health Conditions 1. Rarely or not at all 2. Occasionally 3. Frequently 4. Almost constantly 8. Unable to answer Pain Effect on Sleep: 3 Pain Interference with Therapy: 4 Pain Interference w/Day-to-Day: 4 Transfers SCALE: Activities may be completed with or without assistive devices. 7-Xzakyvlbbb-ntjnvpt completes the activity by him/herself with no assistance from a helper. 5-Set-up or Clean-up Assistance-helper sets up or cleans up; patient completes activity. [place] assists only prior to or following the activity. 4-Supervision or Touching Assistance-helper provides verbal cues and/or touching/steadying and/or contact guard assistance as patient completes activity. Assistance may be provided throughout the activity or intermittently. 3-Partial/Moderate Assistance-helper does LESS THAN HALF the effort. [place] lifts, holds or supports trunk or limbs, but provides less than half the effort. 2-Substantial/Maximal Assistance-helper does MORE THAN HALF the effort. [place] lifts or holds trunk or limbs and provides more than half the effort. 2-Vwsdtfewx-gcwghs does ALL the effort. Patient does none of the effort to complete the activity. Or, the assistance of 2 or more helpers is required for the patient to complete the activity. If activity was not attempted, code reason: 7-Patient Refused. 9-Not Applicable-not attempted and the patient did not perform the activity before the current illness, exacerbation or injury. 10-Not Attempted due to Environmental Limitations-(lack of equipment, weather restraints, etc.). 88-Not Attempted due to Medical Conditions or Safety Concerns. Roll Left & Right (QC): 3 Sit to Lying (QC): 3 Lying to Sitting/Side of Bed(Q: 3 Sit to Stand (QC): 4 Chair/Zyf-vy-Worrf Xfer(QC): 4 Toilet Transfer (QC): 4 Weight Bearing Right Lower Extremity: Right Full Weight Bearing Left Lower Extremity: Left Weight Bearing/Tolerated Gait Training Does the Patient Walk?: Yes Distance: 15 feet Walk 10 feet (QC): 4 Gait Assistive Device: FWW Exercises Supine Ex: Ankle pumps, Quad Set, Glut sets, Heel Slides, Short Arc Quads, Straight leg raise, Hip abd/add Supine Reps: 20 Assessment Current Status: Poor Progress Patient did not tolerate treatment well. She reports she is very tired from PT, OT and speech this morning and has quite a bit more pain at this time. Performs LE therapeutic exercise as listed above. Patient in bed post treatment with all needs met, nursing notified, call light in reach. PT Fdc Goals Home Coordinator Goals PT Home Coordinator Goals Time Frame: Aug 24, 2022 Roll Left & Right (QC): 4 Sit to Lying (QC): 4 Lying-Sitting on Side/Bed(QC): 4 Sit to Stand (QC): 4 Chair/Kwd-vg-Ttofi Xfer(QC): 4 Toilet Transfer (QC): 4 Car Transfer (QC): 4 Does the Patient Walk: Yes Walk 10 feet (QC): 4 Walk 50ft with 2 Turns (QC): 4 Walk 150 ft (QC): 3 Walking 10ft on Uneven Surface: 4 1 Step (curb) (QC): 3 4 Steps (QC): 3 12 Steps (QC): 3 Picking up an Object (QC): 4 Does the Pt use WC or Scooter?: Yes Wheel 50 feet with 2 turns (QC: 6 Type: Manual Wheel 150 feet: 6 PT Plan Treatment/Plan Treatment Plan: Continue Plan of Care Treatment Plan: Bed Mobility, Education, Functional Activity Singh, Functional Strength, Group Therapy, Gait, Safety, Therapeutic Exercise, Transfers Treatment Duration: Sep 14, 2022 Frequency: At least 5 of 7 days/Wk (IRF) Estimated Hrs Per Day: 1.5 hours per day Patient and/or Family Agrees t: Yes Safety Risks/Education Patient Education: Gait Training, Transfer Techniques Teaching Recipient: Patient Teaching Methods: Demonstration, Discussion Response to Teaching: Verbalize Understanding, Return Demonstration Time/GCodes Time In: 1330 Time Out: 1345 Total Billed Treatment Time: 15 Total Billed Treatment Visit, Ther Ex. BRENDON RUBY PT Aug 09, 2022 14:03
--- NOTE | 2022-08-09 16:29 | Progress Note ---
LIA JARAMILLO 08/09/22 1629: Progress Note CC: Debility following left hip fracture with slow recovery and severe acute on chronic pain HPI: This is a 71yoWF clinic patient of [facility] who has a h/o DM, CVA and chronic and debilitating pain managed by pain management specialty who presents from [facility] s/p left hip fracture repair. Pain continues to be an issue and realistic expectations were provided considering her chronic pain is managed by the pain director talent management and we do not have that specialty here at [facility]. Leg spasms seem to be the issue. Patient is sitting comfortably in recliner when I visited today. Continuing to make improvements. Bowels and bladder are functioning well. Reports that OMM treatment is providing relief to her leg pain and discomfort. Today will provide OMM to patient for assistance with recovery. ROS: General: Fatigue, Malaise Musculoskeletal: leg pain Exam: General Appearance: No Apparent Distress, WD/WN, Chronically ill HEENT: PERRL/EOMI Respiratory: Chest Non Tender, Lungs Clear, Normal Breath Sounds, No Accessory Muscle Use, No Respiratory Distress Cardiovascular: RRR, No Edema, No Gallop, No JVD, No Murmur, Normal Peripheral Pulses Extremity: Normal Capillary Refill, Normal Inspection, Normal Range of Motion (except left leg), Non Tender, No Calf Tenderness, No Pedal Edema, hypertonicity of left rectus femoris muscle, taut left IT band Neurologic/Psychiatric: Alert, Oriented x3, No Motor/Sensory Deficits, Normal Mood/Affect, Motor Weakness (left leg) Skin: Normal Color, Warm/Dry Lymphatic: No Adenopathy Assessment: s/p left hip fracture repair Acute on chronic severe pain managed as outpatient by pain director talent management CVA hx RA DM HTN CAD previous CABG GIB hx Post op anemia s/p 3 units of blood Iron deficiency Acute hypokalemia somatic dysfunction due to left hip fracture s/p repair Hypertonic left rectus femoris muscle Taut left IT band Plan: Myofascial release and soft tissue technique of left IT band and rectus femoris muscle Lymphatic drainage of left thigh ADORE IVEY DO 08/10/22 0529: Supervisory-Addendum Brief Verification & Attestation Participated in pt care: history, MDM, physical Personally performed: exam, history, MDM, supervision of care Care discussed with: Medical Student Procedures: n/a Results interpretation: Verified all documentation Verification and Attestation of Medical Student E/M Service A medical student performed and documented this service in my presence. I reviewed and verified all information documented by the medical student and made modifications to such information, when appropriate. I personally performed the physical exam and medical decision making. Adore Ivey, Aug 10, 2022,05:29 LIA JARAMILLO Aug 09, 2022 16:29 ADORE IVEY DO Aug 10, 2022 05:29
[2022-08-09 20:30] VITALS: BP 101/53
[2022-08-09] MEDS: ROSUVASTATIN 20 MG (CRESTOR) TABLET PO SCH (21:06)
[2022-08-09] MEDS: DULoxetine 30 MG (CYMBALTA) CAP PO SCH (21:06)
--- NOTE | 2022-08-10 05:51 | PM&R Progress Note ---
Subjective HPI/CC On Admission Date Seen by Provider: Aug 10, 2022 Time Seen by Provider: 12:30 Subjective/Events-last exam 08/10/2022: Doing very well DC planned Saturday No falls 08/09/2022: Patient doing a lot better Talking about going home rather than skilled facility Pain is pretty well controlled Bowels are moving 08/08/2022: Pt is doing a lot better Pain is improved Wondering if she gets her pain medications Chronic pain issues and narcotic dependence is a risk 08/07/2022: Pt is doing a little better Loose stools after no BM, so will monitor closely Ferritin is normal at 97 Decreasing pain medication 08/06/2022: Pt is doing a lot better Loose stools noted She is very slow but doing a lot better Dr. Shankar wants a ferritin, which will be skewed due to the inflammatory component of the hip fracture but that is his ordinary labs 08/05/2022: Improved status Pain control No falls Family at bedside 08/04/2022: Improved status BM++ Pain actually improved O2 maintained 08/03/2022: Pain remains 08/27 Left hip was concerning therapy so obtained xray and no misalignment noted I told patient and that it will be unrealistic to attain pain control due to h/o chronic pain with nerve ablations and severe pain each and every day Respiratory drive diminished due to increased MSO4 so will decrease back to 15mg PO BID from 20mg No BM so increased laxatives and added SSE 08/02/2022: No major changes Pain is a limitation Increased pain meds Chronic pain requiring shelter pain management will preclude good pain control due to tolerance 08/01/2022: No major issues except chronic pain issues along with acute pain issues No falls Increasing mobility with wheelchair Catastrophic injury for person who struggles with chronic pain 07/31/2022: Patient doing fairly well Pain is an issue and I had started the long acting MSO4 which seems to have helped No falls Took shower No other issues Review of Systems Musculoskeletal: leg pain Objective Exam Vital Signs Vital Signs Date Time Temp Pulse Resp B/P (MAP) Pulse Ox O2 Delivery O2 Flow Rate FiO2 08/10/22 21:10 36.3 84 16 122/73 (89) 94 Room Air 08/09/22 20:30 2.00 Capillary Refill : General Appearance: No Apparent Distress, WD/WN, Chronically ill HEENT: PERRL/EOMI, Normal ENT Inspection, Pharynx Normal Neck: Full Range of Motion, Normal Inspection, Non Tender, Supple, Carotid Bruit Respiratory: Chest Non Tender, Lungs Clear, Normal Breath Sounds, No Accessory Muscle Use, No Respiratory Distress Cardiovascular: Regular Rate, Rhythm, No Edema, No Gallop, No JVD, No Murmur, Normal Peripheral Pulses Gastrointestinal: Normal Bowel Sounds, No Organomegaly, No Pulsatile Mass, Non Tender, Soft Back: Normal Inspection, No CVA Tenderness, No Vertebral Tenderness Extremity: Normal Capillary Refill, Normal Inspection, Normal Range of Motion (except left leg), Non Tender, No Calf Tenderness, No Pedal Edema Neurologic/Psychiatric: Alert, Oriented x3, No Motor/Sensory Deficits, Normal Mood/Affect, Abnormal Gait, Motor Weakness (left leg) Skin: Normal Color, Warm/Dry Lymphatic: No Adenopathy Results/Procedures Lab Patient resulted labs reviewed. FIM Transfers Therapy Code Descriptions/Definitions Functional [place] Measure: 0=Not Assessed/NA 4=Minimal Assistance 1=Total Assistance 5=Supervision or Setup 2=Maximal Assistance 6=Modified [place] 3=Moderate Assistance 7=Complete IndependenceSCALE: Activities may be completed with or without assistive devices. 5-Gwiojrxezz-mtfjaem completes the activity by him/herself with no assistance from a helper. 5-Set-up or Clean-up Assistance-helper sets up or cleans up; patient completes a ctivity. [place] assists only prior to or following the activity. 4-Supervision or Touching Assistance-helper provides verbal cues and/or touching/steadying and/or contact guard assistance as patient completes activity. Assistance may be provided throughout the activity or intermittently. 3-Partial/Moderate Assistance-helper does LESS THAN HALF the effort. [place] lifts, holds or supports trunk or limbs, but provides less than half the effort. 2-Substantial/Maximal Assistance-helper does MORE THAN HALF the effort. [place] lifts or holds trunk or limbs and provides more than half the effort. 1-Zvsvhmmrj-dttbxo does ALL the effort. Patient does none of the effort to complete the activity. Or, the assistance of 2 or more helpers is required for the patient to complete the activity. If activity was not attempted, code reason: 7-Patient Refused. 9-Not Applicable-not attempted and the patient did not perform the activity before the current illness, exacerbation or injury. 10-Not Attempted due to Environmental Limitations-(lack of equipment, weather restraints, etc.). 88-Not Attempted due to Medical Conditions or Safety Concerns. Roll Left to Right (QC): 3 Sit to Lying (QC): 3 Sit to Stand (QC): 4 Chair/Edc-xw-Onpob Xfer(QC): 4 Car Transfer (QC): 2 Gait Training Does the Patient Walk?: Yes Distance: 15 feet Walk 10 feet (QC): 4 Walk 50 ft with 2 Turns(QC): 4 Walk 150 ft (QC): 4 Walking 10ft/uneven surface-QC: 88 Gait Persons Needed: 1 Gait Assistive Device: FWW Wheelchair Training Does the Pt Use a Wheelchair?: Yes Distance: 50 Wheel 50 ft with 2 turns (QC): 4 Wheel 150 ft (QC): 4 Type of Wheelchair: Manual Stair Training #of Steps: 0 1 Step (curb) (QC): 88 4 Steps (QC): 88 12 Steps (QC): 88 Balance Picking up an Object (QC): 88 ADL-Treatment Eating (QC): 6 Oral Hygiene (QC): 6 Shower/Bathe Self (QC): 4 Upper Body Dressing (QC): 5 Lower Body Dressing (QC): 4 On/Off Footwear (QC): 5 Toileting Hygiene (QC): 3 Toilet Transfer (QC): 3 Assessment/Plan Assessment and Plan Assess & Plan/Chief Complaint Assessment: s/p left hip fracture repair Acute on chronic severe pain managed as outpatient by pain records management assistant CVA hx RA DM HTN CAD previous CABG GIB hx Post op anemia s/p 3 units of blood Iron deficiency Acute hypokalemia Plan: PT OT Pain control BM regimen Fall risk 07/31/2022: Replace potassium Supportive care 08/01/2022: Increase pain med doses 08/02/2022: Monitor pain 08/03/2022: Decrease MSO4 due to resp drive decrease SSE for narcotic bowel 08/04/2022: BM regimen successful 08/05/2022: Supportive care 08/06/2022: Monitor pain 08/07/2022: Monitor pain 08/08/2022: Monitor pain 08/09/2022: Bowel regimen Pain control 08/10/2022: Monitor closely (1) Intertrochanteric fracture of left hip Status: Acute (2) Iron deficiency anemia EDY IVEY DO Aug 10, 2022 05:51
[2022-08-10] MEDS: inSUlin ASPART (NovoLOG) 1 UNIT/0.01 ML (CHARGE PER UNIT) SQ SCH ×3 (06:53→17:12)
[2022-08-10] MEDS: KCL 10 MEQ TAB (MICRO K) PO SCH ×3 (06:53→17:11)
[2022-08-10] MEDS: inSUlin ASPART (NovoLOG) 1 UNIT/0.01 ML (CHARGE PER UNIT) SC SCH ×4 (06:53→22:34)
[2022-08-10] MEDS: HYDROXYCHLOROQUINE 200 MG (PLAQUENIL) TAB PO SCH (06:53)
[2022-08-10] MEDS: MULTIVIT W/MINERALS TAB (THERAGRAN M) PO SCH (06:53)
[2022-08-10 07:22] VITALS: BP 109/52
[2022-08-10] MEDS: PANTOPRAZOLE 40 MG (PROTONIX) TAB PO SCH ×2 (07:40→20:47)
[2022-08-10] MEDS: morphine ER 15 MG (MS CONTIN) TAB PO SCH ×2 (07:40→20:47)
[2022-08-10] MEDS: SUCRALFATE 1 GM (CARAFATE) TAB PO SCH ×2 (07:40→20:47)
[2022-08-10] MEDS: GABAPENTIN 100 MG (NEURONTIN) CAP PO SCH ×3 (07:41→20:47)
[2022-08-10] MEDS: FOLIC ACID 1 MG TAB PO SCH (07:41)
[2022-08-10] MEDS: VITAMIN D3 25 MCG (1,000 UNITS) TABLET PO SCH (07:41)
[2022-08-10] MEDS: LORATADINE (CLARITIN) 10 MG TAB PO SCH (07:41)
[2022-08-10] MEDS: SENNA W/DOCUSATE (SENOKOT S) TABLET PO SCH ×2 (07:41→20:47)
[2022-08-10] MEDS: DOCUSATE SODIUM 100 MG (COLACE) CAP PO SCH ×2 (07:41→20:47)
[2022-08-10] MEDS: OMEGA 3 (FISH OIL) 1000 MG CAP PO SCH ×2 (07:41→20:47)
[2022-08-10] MEDS: BACLOFEN 10 MG (LIORESAL) TAB PO SCH ×3 (07:42→20:48)
[2022-08-10] MEDS: polyethylene glycoL POWDER 17 GM (MIRALAX) PACK PO SCH ×2 (07:42→20:46)
--- NOTE | 2022-08-10 08:25 | Speech Therapy Daily Note ---
Speech Daily Progress Note Subjective Date Seen by Provider: Aug 10, 2022 Time Seen by Provider: 09:00 The patient was seated upright in her recliner, awake and alert upon entrance to her room by the clinician. The patient greeted the clinician appropriately and was agreeable to participation in the cognitive linguistic treatment session. The patient's remained present at bedside for the treatment session. Objective The patient participated in structured conversation with mild verbal redirection to topic, however, display appropriate conversational skills. Mild perseveration was present with the date her glenys would be removed. Once the answer was retrieved by the clinician, the perseveration was no longer present. The patient was oriented to self, location, month, day of the week and year independently. The patient (and ) report the patient has returned to baseline cognition, displaying reduced confusion in comparison to the prior week. The patient ordered her breakfast, lunch, and dinner with mild clinician verbal cueing which consisted of reminders of side items such as salsa, salt and pepper, etc. The patient appropriately participated and responded to the questions asked throughout ordering. Assessment Assessment Current Status: Good Progress Treatment Plan Discontinue ST Speech Short Term Goals Short Term Goals Short Term Goals 1. The patient will demonstrate 75% accuracy with memory exercises with mild clinician verbal prompting. Time Frame-STG: One Week. Speech Mcc Goals Mcc Goals The patient will demonstrate improved cognitive linguistic skills for safe discharge to the least restrictive environment. Time Frame: Ten Days. Speech-Plan Treatment Plan Speech Therapy Treatment Plan: Discontinue ST Treatment Duration: Jul 31, 2022 Frequency: Modified Program (IRF) Estimated Hrs Per Day: .5 hour per day Rehab Potential: Guarded Pt/Family Agrees to Plan: Yes Safety Risks/Education Teaching Recipient: Patient, Significant Other Response to Teaching: Verbalize Understanding Education Topics Provided: Recommendations, Plan of Care Time Speech Therapy Time In: 09:00 Speech Therapy Time Out: 09:30 Total Billed Time: 30 Billed Treatment Time 1EDENILSON [address]IZ[address] ST Aug 10, 2022 08:25
--- NOTE | 2022-08-10 08:57 | Occupational Ther Daily Note ---
OT Current Status-Daily Note Subjective Pt laying in bed with nursing present upon arrival. Appearance Pt left in recliner with all needs within reach. Mental Status/Objective Patient Orientation: Person Acute change in mental status: 1 Inattention: 2 Disorganized thinkin Altered level of consciousness: 0 ADL-Treatment Therapy Code Descriptions/Definitions Functional [place] Measure: 0=Not Assessed/NA 4=Minimal Assistance 1=Total Assistance 5=Supervision or Setup 2=Maximal Assistance 6=Modified [place] 3=Moderate Assistance 7=Complete IndependenceSCALE: Activities may be completed with or without assistive devices. 8-Xdimsyneih-lhbzwdm completes the activity by him/herself with no assistance from a helper. 5-Set-up or Clean-up Assistance-helper sets up or cleans up; patient completes activity. [place] assists only prior to or following the activity. 4-Supervision or Touching Assistance-helper provides verbal cues and/or touching/steadying and/or contact guard assistance as patient completes activity. Assistance may be provided throughout the activity or intermittently. 3-Partial/Moderate Assistance-helper does LESS THAN HALF the effort. [place] lifts, holds or supports trunk or limbs, but provides less than half the effort. 2-Substantial/Maximal Assistance-helper does MORE THAN HALF the effort. [place] lifts or holds trunk or limbs and provides more than half the effort. 1-Elwcsapzq-zrabyf does ALL the effort. Patient does none of the effort to complete the activity. Or, the assistance of 2 or more helpers is required for the patient to complete the activity. If activity was not attempted, code reason: 7-Patient Refused. 9-Not Applicable-not attempted and the patient did not perform the activity befo re the current illness, exacerbation or injury. 10-Not Attempted due to Environmental Limitations-(lack of equipment, weather re straints, etc.). 88-Not Attempted due to Medical Conditions or Safety Concerns. Eating (QC): 6 Oral Hygiene (QC): 6 Upper Body Dressing (QC): 6 Lower Body Dressing (QC): 4 On/Off Footwear: 5 Sit<>stand transfers: Mod assist x1. Pt requires daily cues for pushing up from w/c arms rather than pulling from walker. Pt performed grooming with independence 100% seated in w/c. Partial sponge bath (upper body only) completed seated at sink with set up assist. Pt able to thread bilateral legs through brief and pants with spiral machine operator; no cues or assist this date. Once standing, CGA for safety as she manages clothing up to waist. Other Treatment Pt ambulated ~250 ft with 1 seated rest break and then ambulated back to room after UE exercises. Pt completed 3x10 reps of w/c pushups to increase UE strength to improve transfers. Min cues to lift buttocks completely off seat cushion. UE exercises completed, 1x10 reps with 3 lb weights in all planes to improve strength, endurance, and functional performance with ADLs. Pt tolerates well with short rest breaks. She reports UE fatigue at end of treatment. Education OT Patient Education: Correct positioning, Energy conservation, Exercise program, Home exercise program, Modified ADL techniques, Progress toward Goal/Update tx plan, Purpose of tx/functional activities, Reviewed precautions, Rehab process, Safety issues, Transfer techniques, Use of adapted equipment, W/C management Teaching Recipient: Patient Teaching Methods: Demonstration, Discussion Response to Teaching: Verbalize Understanding, Return Demonstration, Reinforcement Needed OT Short Term Goals Short Term Goals Time Frame: Aug 13, 2022 Eatin Oral hygiene: 5 Toileting hygiene: 2 Shower/bathe self: 3 Upper body dressin Lower body dressin Putting on/taking off footwear: 2 OT Longterm Goals [employer] Dietary Service Manager Goals Time Frame: Aug 24, 2022 Acute change in mental status: 1 Inattention: 2 Disorganized thinkin Altered level of consciousness: 0 Eating (QC): 6 Oral Hygiene (QC): 6 Toileting Hygiene (QC): 4 Shower/Bathe Self (QC): 5 Upper Body Dressing (QC): 5 Lower Body Dressing (QC): 4 On/Off Footwear (QC): 4 Additional Goals: 1-Demonstrate ADL Tasks, 2-Verbalize Understanding, 3- ImproveStrength/Singh 1=Demonstrate adherence to instructed precautions during ADL tasks. 2=Patient will verbalize/demonstrate understanding of assistive devices/modifications for ADL. 3=Patient will improve strength/tolerance for activity to enable patient to perform ADL's. OT Education/Plan Problem List/Assessment Assessment: Decreased Activ Tolerance, Decreased Safety Aware, Decreased UE Strength, Dependent Transfers, Edema, Impaired Bed Mobility, Impaired Cognition, Impaired Coordination, Impaired Funct Balance, Impaired I ADL's, Impaired Self- Care Skills, Restricted Funct UE ROM Discharge Recommendations Plan/Recommendations: Continue POC Treatment Plan/Plan of Care Treatment,Training & Education: Yes Patient would benefit from OT for education, treatment and training to promote independence in ADL's, mobility, safety and/or upper extremity function for ADL's. Plan of Care: ADL Retraining, Caregiver Training, Cognitive Retraining, Concurrent Therapy, Functional Mobility, Group Exercise/Act as Ind, UE Funct Exercise/Act, W/C Management Training Treatment Duration: Aug 24, 2022 Frequency: At least 5 of 7 days/Wk (IRF) Estimated Hrs Per Day: 1.5 hours per day (75-90 min/day) Agreement: Yes Rehab Potential: Guarded Time/GCodes Start Time: 07:40 Stop Time: 08:55 Total Time Billed (hr/min): 75 Billed Treatment Time 1 visit ADL x2 (25 min) EX x3 (50 min) Jennifer Hand OT Aug 10, 2022 08:57
--- NOTE | 2022-08-10 11:03 | Physical Therapy Daily Note ---
PT Daily Note-Current Subjective Patient reports fatigue, however, agrees to PT. Pain Section J - Health Conditions 1. Rarely or not at all 2. Occasionally 3. Frequently 4. Almost constantly 8. Unable to answer Pain Effect on Sleep: 3 Pain Interference with Therapy: 4 Pain Interference w/Day-to-Day: 4 Mental Status Patient Orientation: Normal For Age Transfers SCALE: Activities may be completed with or without assistive devices. 3-Jujgqvvvgg-uemdkwk completes the activity by him/herself with no assistance from a helper. 5-Set-up or Clean-up Assistance-helper sets up or cleans up; patient completes activity. [place] assists only prior to or following the activity. 4-Supervision or Touching Assistance-helper provides verbal cues and/or touching/steadying and/or contact guard assistance as patient completes activity. Assistance may be provided throughout the activity or intermittently. 3-Partial/Moderate Assistance-helper does LESS THAN HALF the effort. [place] lifts, holds or supports trunk or limbs, but provides less than half the effort. 2-Substantial/Maximal Assistance-helper does MORE THAN HALF the effort. [place] lifts or holds trunk or limbs and provides more than half the effort. 2-Hptnznypr-mlntld does ALL the effort. Patient does none of the effort to complete the activity. Or, the assistance of 2 or more helpers is required for the patient to complete the activity. If activity was not attempted, code reason: 7-Patient Refused. 9-Not Applicable-not attempted and the patient did not perform the activity before the current illness, exacerbation or injury. 10-Not Attempted due to Environmental Limitations-(lack of equipment, weather restraints, etc.). 88-Not Attempted due to Medical Conditions or Safety Concerns. Sit to Stand (QC): 2 Chair/Irt-fg-Zqvax Xfer(QC): 3 Weight Bearing Right Lower Extremity: Right Full Weight Bearing Left Lower Extremity: Left Weight Bearing/Tolerated Gait Training Distance: 100' x 4 Walk 10 feet (QC): 4 Walk 50 ft with 2 Turns(QC): 4 Gait Assistive Device: FWW VC's for body placement in FWW/extended UE's with FWW use and shuffle gait sequence Exercises Seated Therapy Exercises: Sit to stand (5 sets max assist), Long arc quads Seated Reps: 15 NuStep Minutes: 20 NuStep Workload: 3 (to improve strength and functional mobility) Assessment Patient requires seated recovery periods due to fatigue. Patient progressing with treatment plan. Patient has noted left LE edema/tightness. Patient tolerated treatment well and returned to recliner with needs met. 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 Time Frame: Aug 24, 2022 Roll Left & Right (QC): 4 Sit to Lying (QC): 4 Lying-Sitting on Side/Bed(QC): 4 Sit to Stand (QC): 4 Chair/Eta-fe-Iuccy Xfer(QC): 4 Toilet Transfer (QC): 4 Car Transfer (QC): 4 Does the Patient Walk: Yes Walk 10 feet (QC): 4 Walk 50ft with 2 Turns (QC): 4 Walk 150 ft (QC): 3 Walking 10ft on Uneven Surface: 4 1 Step (curb) (QC): 3 4 Steps (QC): 3 12 Steps (QC): 3 Picking up an Object (QC): 4 Does the Pt use WC or Scooter?: Yes Wheel 50 feet with 2 turns (QC: 6 Type: Manual Wheel 150 feet: 6 PT Plan Treatment/Plan Treatment Plan: Continue Plan of Care Treatment Plan: Bed Mobility, Education, Functional Activity Singh, Functional Strength, Group Therapy, Gait, Safety, Therapeutic Exercise, Transfers Treatment Duration: Sep 14, 2022 Frequency: At least 5 of 7 days/Wk (IRF) Estimated Hrs Per Day: 1.5 hours per day Patient and/or Family Agrees t: Yes Time/GCodes Time In: 940 Time Out: 1040 Total Billed Treatment Time: 60 Total Billed Treatment 1 visit EX x 2 30 min GT x 2 30 min SERJIO FOX PT Aug 10, 2022 11:03
--- NOTE | 2022-08-10 13:14 | Physical Therapy Daily Note ---
PT Daily Note-Current Subjective Patient in recliner pre tx, agrees to PT, has per patient very little pain at rest. Pain Section J - Health Conditions 1. Rarely or not at all 2. Occasionally 3. Frequently 4. Almost constantly 8. Unable to answer Pain Effect on Sleep: 3 Pain Interference with Therapy: 4 Pain Interference w/Day-to-Day: 4 Appearance Patient in recliner post tx with nurse call, phone, tray, all needs met. Mental Status Patient Orientation: Person, Place, Situation Transfers SCALE: Activities may be completed with or without assistive devices. 7-Afroyzufxb-ofpsfay completes the activity by him/herself with no assistance from a helper. 5-Set-up or Clean-up Assistance-helper sets up or cleans up; patient completes activity. [place] assists only prior to or following the activity. 4-Supervision or Touching Assistance-helper provides verbal cues and/or touching/steadying and/or contact guard assistance as patient completes activity. Assistance may be provided throughout the activity or intermittently. 3-Partial/Moderate Assistance-helper does LESS THAN HALF the effort. [place] lifts, holds or supports trunk or limbs, but provides less than half the effort. 2-Substantial/Maximal Assistance-helper does MORE THAN HALF the effort. [place] lifts or holds trunk or limbs and provides more than half the effort. 1-Lzaozwlls-xiocwp does ALL the effort. Patient does none of the effort to complete the activity. Or, the assistance of 2 or more helpers is required for the patient to complete the activity. If activity was not attempted, code reason: 7-Patient Refused. 9-Not Applicable-not attempted and the patient did not perform the activity before the current illness, exacerbation or injury. 10-Not Attempted due to Environmental Limitations-(lack of equipment, weather restraints, etc.). 88-Not Attempted due to Medical Conditions or Safety Concerns. 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 Aluminum Molding Machine Operator Goals PT Long-Term Goals Time Frame: Aug 24, 2022 Roll Left & Right (QC): 4 Sit to Lying (QC): 4 Lying-Sitting on Side/Bed(QC): 4 Sit to Stand (QC): 4 Chair/Gkk-qr-Spcec Xfer(QC): 4 Toilet Transfer (QC): 4 Car Transfer (QC): 4 Does the Patient Walk: Yes Walk 10 feet (QC): 4 Walk 50ft with 2 Turns (QC): 4 Walk 150 ft (QC): 3 Walking 10ft on Uneven Surface: 4 1 Step (curb) (QC): 3 4 Steps (QC): 3 12 Steps (QC): 3 Picking up an Object (QC): 4 Does the Pt use WC or Scooter?: Yes Wheel 50 feet with 2 turns (QC: 6 Type: Manual Wheel 150 feet: 6 PT Plan Problem List Problem List: Activity Tolerance, Functional Strength, Safety, Balance, Gait, Transfer, Bed Mobility, ROM Treatment/Plan Treatment Plan: Continue Plan of Care Treatment Plan: Bed Mobility, Education, Functional Activity Singh, Functional Strength, Group Therapy, Gait, Safety, Therapeutic Exercise, Transfers Treatment Duration: Sep 14, 2022 Frequency: At least 5 of 7 days/Wk (IRF) Estimated Hrs Per Day: 1.5 hours per day Patient and/or Family Agrees t: Yes Safety Risks/Education Patient Education: Correct Positioning, Safety Issues Teaching Recipient: Patient Teaching Methods: Demonstration, Discussion Response to Teaching: Reinforcement Needed Time/GCodes Time In: 1300 Time Out: 1315 Total Billed Treatment Time: 15 Total Billed Treatment 1 visit EX LAURA MARROQUIN PT Aug 10, 2022 13:14
[2022-08-10] MEDS: ALPRAZolam 0.25 MG (XANAX) TAB PO PRN (20:47)
[2022-08-10] MEDS: ROSUVASTATIN 20 MG (CRESTOR) TABLET PO SCH (20:47)
[2022-08-10] MEDS: DULoxetine 30 MG (CYMBALTA) CAP PO SCH (20:47)
[2022-08-10 21:10] VITALS: BP 122/73
[2022-08-11] MEDS: inSUlin ASPART (NovoLOG) 1 UNIT/0.01 ML (CHARGE PER UNIT) SC SCH ×4 (06:36→22:25)
[2022-08-11] MEDS: MULTIVIT W/MINERALS TAB (THERAGRAN M) PO SCH (06:37)
[2022-08-11] MEDS: inSUlin ASPART (NovoLOG) 1 UNIT/0.01 ML (CHARGE PER UNIT) SQ SCH ×3 (06:37→17:14)
[2022-08-11] MEDS: HYDROXYCHLOROQUINE 200 MG (PLAQUENIL) TAB PO SCH (06:37)
--- NOTE | 2022-08-11 07:59 | PM&R Progress Note ---
Subjective HPI/CC On Admission Date Seen by Provider: Aug 11, 2022 Time Seen by Provider: 11:30 Subjective/Events-last exam 08/11/2022: Patient doing well Walking well Pain improved Discharge plan for Saturday08/10/2022: Doing very well DC planned Saturday No falls 08/09/2022: Patient doing a lot better Talking about going home rather than skilled facility Pain is pretty well controlled Bowels are moving 08/08/2022: Pt is doing a lot better Pain is improved Wondering if she gets her pain medications Chronic pain issues and narcotic dependence is a risk 08/07/2022: Pt is doing a little better Loose stools after no BM, so will monitor closely Ferritin is normal at 97 Decreasing pain medication 08/06/2022: Pt is doing a lot better Loose stools noted She is very slow but doing a lot better Dr. Shankar wants a ferritin, which will be skewed due to the inflammatory component of the hip fracture but that is his ordinary labs 08/05/2022: Improved status Pain control No falls Family at bedside 08/04/2022: Improved status BM++ Pain actually improved O2 maintained 08/03/2022: Pain remains 10/ Left hip was concerning therapy so obtained xray and no misalignment noted I told patient and that it will be unrealistic to attain pain control due to h/o chronic pain with nerve ablations and severe pain each and every day Respiratory drive diminished due to increased MSO4 so will decrease back to 15mg PO BID from 20mg No BM so increased laxatives and added SSE 08/02/2022: No major changes Pain is a limitation Increased pain meds Chronic pain requiring residential pain management will preclude good pain control due to tolerance 08/01/2022: No major issues except chronic pain issues along with acute pain issues No falls Increasing mobility with wheelchair Catastrophic injury for person who struggles with chronic pain 07/31/2022: Patient doing fairly well Pain is an issue and I had started the long acting MSO4 which seems to have helped No falls Took shower No other issues Review of Systems General: Fatigue, Malaise Objective Exam Vital Signs Vital Signs Date Time Temp Pulse Resp B/P (MAP) Pulse Ox O2 Delivery O2 Flow Rate FiO2 08/11/22 21:50 Room Air 08/11/22 21:01 36.1 86 20 110/55 (73) 94 9/22/22 20:30 2.00 Capillary Refill : General Appearance: No Apparent Distress, WD/WN, Chronically ill HEENT: PERRL/EOMI, Normal ENT Inspection, Pharynx Normal Neck: Full Range of Motion, Normal Inspection, Non Tender, Supple, Carotid Bruit Respiratory: Chest Non Tender, Lungs Clear, Normal Breath Sounds, No Accessory Muscle Use, No Respiratory Distress Cardiovascular: Regular Rate, Rhythm, No Edema, No Gallop, No JVD, No Murmur, Normal Peripheral Pulses Gastrointestinal: Normal Bowel Sounds, No Organomegaly, No Pulsatile Mass, Non Tender, Soft Back: Normal Inspection, No CVA Tenderness, No Vertebral Tenderness Extremity: Normal Capillary Refill, Normal Inspection, Normal Range of Motion (except left leg), Non Tender, No Calf Tenderness, No Pedal Edema Neurologic/Psychiatric: Alert, Oriented x3, No Motor/Sensory Deficits, Normal Mood/Affect, Abnormal Gait, Motor Weakness (left leg) Skin: Normal Color, Warm/Dry Lymphatic: No Adenopathy Results/Procedures Lab Patient resulted labs reviewed. [facility]IM Transfers Therapy Code Descriptions/Definitions Functional [place] Measure: 0=Not Assessed/NA 4=Minimal Assistance 1=Total Assistance 5=Supervision or Setup 2=Maximal Assistance 6=Modified [place] 3=Moderate Assistance 7=Complete IndependenceSCALE: Activities may be completed with or without assistive devices. 9-Anoxyvxzlk-wqbmxte completes the activity by him/herself with no assistance from a helper. 5-Set-up or Clean-up Assistance-helper sets up or cleans up; patient completes activity. [place] assists only prior to or following the activity. 4-Supervision or Touching Assistance-helper provides verbal cues and/or touc ledy/steadying and/or contact guard assistance as patient completes activity. Assistance may be provided throughout the activity or intermittently. 3-Partial/Moderate Assistance-helper does LESS THAN HALF the effort. [place] lifts, holds or supports trunk or limbs, but provides less than half the effort. 2-Substantial/Maximal Assistance-helper does MORE THAN HALF the effort. [place] lifts or holds trunk or limbs and provides more than half the effort. 5-Texoptfsl-nltomo does ALL the effort. Patient does none of the effort to complete the activity. Or, the assistance of 2 or more helpers is required for the patient to complete the activity. If activity was not attempted, code reason: 7-Patient Refused. 9-Not Applicable-not attempted and the patient did not perform the activity before the current illness, exacerbation or injury. 10-Not Attempted due to Environmental Limitations-(lack of equipment, weather restraints, etc.). 88-Not Attempted due to Medical Conditions or Safety Concerns. Roll Left to Right (QC): 3 Sit to Lying (QC): 3 Sit to Stand (QC): 2 Chair/Jql-kd-Yfqrt Xfer(QC): 3 Car Transfer (QC): 2 Gait Training Does the Patient Walk?: Yes Distance: 100' x 4 Walk 10 feet (QC): 4 Walk 50 ft with 2 Turns(QC): 4 Walk 150 ft (QC): 4 Walking 10ft/uneven surface-QC: 88 Gait Persons Needed: 1 Gait Assistive Device: FWW Wheelchair Training Does the Pt Use a Wheelchair?: Yes Distance: 50 Wheel 50 ft with 2 turns (QC): 4 Wheel 150 ft (QC): 4 Type of Wheelchair: Manual Stair Training #of Steps: 0 1 Step (curb) (QC): 88 4 Steps (QC): 88 12 Steps (QC): 88 Balance Picking up an Object (QC): 88 ADL-Treatment Eating (QC): 6 Oral Hygiene (QC): 6 Shower/Bathe Self (QC): 4 Upper Body Dressing (QC): 6 Lower Body Dressing (QC): 4 On/Off Footwear (QC): 5 Toileting Hygiene (QC): 3 Toilet Transfer (QC): 3 Assessment/Plan Assessment and Plan Assess & Plan/Chief Complaint Assessment: s/p left hip fracture repair Acute on chronic severe pain managed as outpatient by pain configuration management specialist CVA hx RA DM HTN CAD previous CABG GIB hx Post op anemia s/p 3 units of blood Iron deficiency Acute hypokalemia Plan: PT OT Pain control BM regimen Fall risk 07/31/2022: Replace potassium Supportive care 08/01/2022: Increase pain med doses 08/02/2022: Monitor pain 08/03/2022: Decrease MSO4 due to resp drive decrease SSE for narcotic bowel 08/04/2022: BM regimen successful 08/05/2022: Supportive care 08/06/2022: Monitor pain 08/07/2022: Monitor pain 08/08/2022: Monitor pain 08/09/2022: Bowel regimen Pain control 08/10/2022: Monitor closely 08/11/2022: Monitor closely Fall risk (1) Intertrochanteric fracture of left hip Status: Acute (2) Iron deficiency anemia EDY IVEY DO Aug 11, 2022 07:59
[2022-08-11 08:33] VITALS: BP 108/53
[2022-08-11] MEDS: morphine ER 15 MG (MS CONTIN) TAB PO SCH ×2 (08:33→22:25)
[2022-08-11] MEDS: OMEGA 3 (FISH OIL) 1000 MG CAP PO SCH ×2 (08:33→22:24)
[2022-08-11] MEDS: BACLOFEN 10 MG (LIORESAL) TAB PO SCH ×3 (08:34→22:24)
[2022-08-11] MEDS: SENNA W/DOCUSATE (SENOKOT S) TABLET PO SCH ×2 (08:34→21:00)
[2022-08-11] MEDS: PANTOPRAZOLE 40 MG (PROTONIX) TAB PO SCH ×2 (08:34→22:25)
[2022-08-11] MEDS: SUCRALFATE 1 GM (CARAFATE) TAB PO SCH ×2 (08:34→22:24)
[2022-08-11] MEDS: LORATADINE (CLARITIN) 10 MG TAB PO SCH (08:34)
[2022-08-11] MEDS: VITAMIN D3 25 MCG (1,000 UNITS) TABLET PO SCH (08:34)
[2022-08-11] MEDS: KCL 10 MEQ TAB (MICRO K) PO SCH ×3 (08:34→17:14)
[2022-08-11] MEDS: FOLIC ACID 1 MG TAB PO SCH (08:34)
[2022-08-11] MEDS: GABAPENTIN 100 MG (NEURONTIN) CAP PO SCH ×3 (08:35→22:25)
[2022-08-11] MEDS: DOCUSATE SODIUM 100 MG (COLACE) CAP PO SCH ×2 (08:35→22:24)
[2022-08-11] MEDS: polyethylene glycoL POWDER 17 GM (MIRALAX) PACK PO SCH ×2 (08:35→22:23)
--- NOTE | 2022-08-11 11:01 | Physical Therapy Daily Note ---
PT Daily Note-Current Subjective Patient agrees to PT. Pain Section J - Health Conditions 1. Rarely or not at all 2. Occasionally 3. Frequently 4. Almost constantly 8. Unable to answer Pain Effect on Sleep: 3 Pain Interference with Therapy: 4 Pain Interference w/Day-to-Day: 4 Mental Status Patient Orientation: Normal For Age Transfers SCALE: Activities may be completed with or without assistive devices. 8-Aeexjtkkmm-kqpklgl completes the activity by him/herself with no assistance from a helper. 5-Set-up or Clean-up Assistance-helper sets up or cleans up; patient completes activity. [place] assists only prior to or following the activity. 4-Supervision or Touching Assistance-helper provides verbal cues and/or touching/steadying and/or contact guard assistance as patient completes activity. Assistance may be provided throughout the activity or intermittently. 3-Partial/Moderate Assistance-helper does LESS THAN HALF the effort. [place] lifts, holds or supports trunk or limbs, but provides less than half the effort. 2-Substantial/Maximal Assistance-helper does MORE THAN HALF the effort. [place] lifts or holds trunk or limbs and provides more than half the effort. 8-Siqnjulsy-xqoygv does ALL the effort. Patient does none of the effort to complete the activity. Or, the assistance of 2 or more helpers is required for the patient to complete the activity. If activity was not attempted, code reason: 7-Patient Refused. 9-Not Applicable-not attempted and the patient did not perform the activity before the current illness, exacerbation or injury. 10-Not Attempted due to Environmental Limitations-(lack of equipment, weather restraints, etc.). 88-Not Attempted due to Medical Conditions or Safety Concerns. Roll Left & Right (QC): 3 Sit to Lying (QC): 3 Lying to Sitting/Side of Bed(Q: 3 Sit to Stand (QC): 3 Chair/Cvx-at-Etioz Xfer(QC): 4 Toilet Transfer (QC): 3 Car Transfer (QC): 3 Weight Bearing Right Lower Extremity: Right Full Weight Bearing Left Lower Extremity: Left Weight Bearing/Tolerated Gait Training Does the Patient Walk?: Yes Distance: 150' x 2 Walk 10 feet (QC): 4 Walk 50 ft with 2 Turns(QC): 4 Walk 150 ft (QC): 4 Walking 10ft/uneven surface-QC: 4 Gait Assistive Device: FWW slow, shuffle gait sequence with minimal foot clearance Wheelchair Training Does the Pt Use a Wheelchair?: No Wheel 50 ft with 2 turns (QC): 9 Wheel 150 ft (QC): 9 Stair Training Stair Training: Handrails/: 1 handrail, uses walker #of Steps: 12 1 Step (curb) (QC): 3 4 Steps (QC): 3 12 Steps (QC): 3 Stairs: Pattern: Step to Balance Picking up an Object (QC): 4 Assessment Patient motivated to return to home soon. Patient did require assistance to cleanse and change clothes after BM on this date. Patient up in recliner with needs met. PT Residential Goals Residential Goals PT Residential Goals Time Frame: Aug 24, 2022 Roll Left & Right (QC): 4 Sit to Lying (QC): 4 Lying-Sitting on Side/Bed(QC): 4 Sit to Stand (QC): 4 Chair/Pvw-yv-Oevcx Xfer(QC): 4 Toilet Transfer (QC): 4 Car Transfer (QC): 4 Does the Patient Walk: Yes Walk 10 feet (QC): 4 Walk 50ft with 2 Turns (QC): 4 Walk 150 ft (QC): 3 Walking 10ft on Uneven Surface: 4 1 Step (curb) (QC): 3 4 Steps (QC): 3 12 Steps (QC): 3 Picking up an Object (QC): 4 Does the Pt use WC or Scooter?: Yes Wheel 50 feet with 2 turns (QC: 6 Type: Manual Wheel 150 feet: 6 PT Plan Treatment/Plan Treatment Plan: Continue Plan of Care Treatment Plan: Bed Mobility, Education, Functional Activity Singh, Functional Strength, Group Therapy, Gait, Safety, Therapeutic Exercise, Transfers Treatment Duration: Sep 14, 2022 Frequency: At least 5 of 7 days/Wk (IRF) Estimated Hrs Per Day: 1.5 hours per day Patient and/or Family Agrees t: Yes Time/GCodes Time In: 1010 Time Out: 1050 Total Billed Treatment Time: 40 Total Billed Treatment 1 visit FA x 3 40 min SERJIO FOX PT Aug 11, 2022 11:01
[2022-08-11 21:01] VITALS: BP 110/55
[2022-08-11] MEDS: ROSUVASTATIN 20 MG (CRESTOR) TABLET PO SCH (22:24)
[2022-08-11] MEDS: ALPRAZolam 0.25 MG (XANAX) TAB PO PRN (22:25)
[2022-08-11] MEDS: DULoxetine 30 MG (CYMBALTA) CAP PO SCH (22:25)
[2022-08-12] MEDS: inSUlin ASPART (NovoLOG) 1 UNIT/0.01 ML (CHARGE PER UNIT) SC SCH ×4 (06:50→21:52)
[2022-08-12] MEDS: inSUlin ASPART (NovoLOG) 1 UNIT/0.01 ML (CHARGE PER UNIT) SQ SCH ×3 (06:50→17:14)
[2022-08-12] MEDS: HYDROXYCHLOROQUINE 200 MG (PLAQUENIL) TAB PO SCH (06:50)
[2022-08-12] MEDS: MULTIVIT W/MINERALS TAB (THERAGRAN M) PO SCH (06:50)
--- NOTE | 2022-08-12 07:03 | PM&R Progress Note ---
Subjective HPI/CC On Admission Date Seen by Provider: Aug 12, 2022 Time Seen by Provider: 12:00 Subjective/Events-last exam 08/12/2022: Pain improved DC tomorrow 08/11/2022: Patient doing well Walking well Pain improved Discharge plan for Saturday08/10/2022: Doing very well DC planned Saturday No falls 08/09/2022: Patient doing a lot better Talking about going home rather than skilled facility Pain is pretty well controlled Bowels are moving 08/08/2022: Pt is doing a lot better Pain is improved Wondering if she gets her pain medications Chronic pain issues and narcotic dependence is a risk 08/07/2022: Pt is doing a little better Loose stools after no BM, so will monitor closely Ferritin is normal at 97 Decreasing pain medication 08/06/2022: Pt is doing a lot better Loose stools noted She is very slow but doing a lot better Dr. Shankar wants a ferritin, which will be skewed due to the inflammatory c omponent of the hip fracture but that is his ordinary labs 08/05/2022: Improved status Pain control No falls Family at bedside 08/04/2022: Improved status BM++ Pain actually improved O2 maintained 08/03/2022: Pain remains 08/27 Left hip was concerning therapy so obtained xray and no misalignment noted I told patient and that it will be unrealistic to attain pain control due to h/o chronic pain with nerve ablations and severe pain each and every day Respiratory drive diminished due to increased MSO4 so will decrease back to 15mg PO BID from 20mg No BM so increased laxatives and added SSE 08/02/2022: No major changes Pain is a limitation Increased pain meds Chronic pain requiring lobsterman pain management will preclude good pain control due to tolerance 08/01/2022: No major issues except chronic pain issues along with acute pain issues No falls Increasing mobility with wheelchair Catastrophic injury for person who struggles with chronic pain 07/31/2022: Patient doing fairly well Pain is an issue and I had started the long acting MSO4 which seems to have helped No falls Took shower No other issues Review of Systems General: Fatigue, Malaise Objective Exam Vital Signs Vital Signs Date Time Temp Pulse Resp B/P (MAP) Pulse Ox O2 Delivery O2 Flow Rate FiO2 08/12/22 09:20 36.6 08/12/22 08:13 91 Room Air 2.00 08/12/22 07:30 82 18 104/54 (71) Capillary Refill : General Appearance: No Apparent Distress, WD/WN, Chronically ill HEENT: PERRL/EOMI, Normal ENT Inspection, Pharynx Normal Neck: Full Range of Motion, Normal Inspection, Non Tender, Supple, Carotid Bruit Respiratory: Chest Non Tender, Lungs Clear, Normal Breath Sounds, No Accessory Muscle Use, No Respiratory Distress Cardiovascular: Regular Rate, Rhythm, No Edema, No Gallop, No JVD, No Murmur, Normal Peripheral Pulses Gastrointestinal: Normal Bowel Sounds, No Organomegaly, No Pulsatile Mass, Non Tender, Soft Back: Normal Inspection, No CVA Tenderness, No Vertebral Tenderness Extremity: Normal Capillary Refill, Normal Inspection, Normal Range of Motion (except left leg), Non Tender, No Calf Tenderness, No Pedal Edema Neurologic/Psychiatric: Alert, Oriented x3, No Motor/Sensory Deficits, Normal Mood/Affect, Abnormal Gait, Motor Weakness (left leg) Skin: Normal Color, Warm/Dry Lymphatic: No Adenopathy Results/Procedures Lab Laboratory Tests 08/12/22 07:02 Patient resulted labs reviewed. FIM Transfers Therapy Code Descriptions/Definitions Functional [place] Measure: 0=Not Assessed/NA 4=Minimal Assistance 1=Total Assistance 5=Supervision or Setup 2=Maximal Assistance 6=Modified [place] 3=Moderate Assistance 7=Complete IndependenceSCALE: Activities may be completed with or without assistive devices. 6-Nzywgahbgg-rhxolah completes the activity by him/herself with no assistance from a helper. 5-Set-up or Clean-up Assistance-helper sets up or cleans up; patient completes activity. [place] assists only prior to or following the activity. 4-Supervision or Touching Assistance-helper provides verbal cues and/or touching/steadying and/or contact guard assistance as patient completes activity. Assistance may be provided throughout the activity or intermittently. 3-Partial/Moderate Assistance-helper does LESS THAN HALF the effort. [place] lifts, holds or supports trunk or limbs, but provides less than half the effort. 2-Substantial/Maximal Assistance-helper does MORE THAN HALF the effort. [place] lifts or holds trunk or limbs and provides more than half the effort. 3-Iczouqwqr-pfqpms does ALL the effort. Patient does none of the effort to co mplete the activity. Or, the assistance of 2 or more helpers is required for the patient to complete the activity. If activity was not attempted, code reason: 7-Patient Refused. 9-Not Applicable-not attempted and the patient did not perform the activity before the current illness, exacerbation or injury. 10-Not Attempted due to Environmental Limitations-(lack of equipment, weather restraints, etc.). 88-Not Attempted due to Medical Conditions or Safety Concerns. Roll Left to Right (QC): 3 Sit to Lying (QC): 3 Sit to Stand (QC): 3 Chair/Zge-po-Nuhhs Xfer(QC): 4 Car Transfer (QC): 3 Gait Training Does the Patient Walk?: Yes Distance: 150' x 2 Walk 10 feet (QC): 4 Walk 50 ft with 2 Turns(QC): 4 Walk 150 ft (QC): 4 Walking 10ft/uneven surface-QC: 4 Gait Persons Needed: 1 Gait Assistive Device: FWW Wheelchair Training Does the Pt Use a Wheelchair?: No Distance: 50 Wheel 50 ft with 2 turns (QC): 9 Wheel 150 ft (QC): 9 Type of Wheelchair: Manual Stair Training Stair Training: Handrails/: 1 handrail, uses walker #of Steps: 12 1 Step (curb) (QC): 3 4 Steps (QC): 3 12 Steps (QC): 3 Stairs: Pattern: Step to Balance Picking up an Object (QC): 4 ADL-Treatment Eating (QC): 6 Oral Hygiene (QC): 6 Shower/Bathe Self (QC): 4 Upper Body Dressing (QC): 6 Lower Body Dressing (QC): 4 On/Off Footwear (QC): 5 Toileting Hygiene (QC): 3 Toilet Transfer (QC): 3 Assessment/Plan Assessment and Plan Assess & Plan/Chief Complaint Assessment: s/p left hip fracture repair Acute on chronic severe pain managed as outpatient by pain management associate CVA hx RA DM HTN CAD previous CABG GIB hx Post op anemia s/p 3 units of blood Iron deficiency Acute hypokalemia Plan: PT OT Pain control BM regimen Fall risk 07/31/2022: Replace potassium Supportive care 08/01/2022: Increase pain med doses 08/02/2022: Monitor pain 08/03/2022: Decrease MSO4 due to resp drive decrease SSE for narcotic bowel 08/04/2022: BM regimen successful 08/05/2022: Supportive care 08/06/2022: Monitor pain 08/07/2022: Monitor pain 08/08/2022: Monitor pain 08/09/2022: Bowel regimen Pain control 08/10/2022: Monitor closely 08/11/2022: Monitor closely Fall risk 08/12/2022: Hgb 7.8 (1) Intertrochanteric fracture of left hip Status: Acute (2) Iron deficiency anemia EDY IVEY DO Aug 12, 2022 07:02
[2022-08-12 07:09] LABS: BASOPHILS % (AUTO) 0 % (0-10); EOSINOPHILS # (AUTO) 0.1 10^3/uL (0.0-0.3); EOSINOPHILS % (AUTO) 3 % (0-10); HEMATOCRIT 27 % (35-52); HEMOGLOBIN 7.8 g/dL (11.5-16.0); LYMPHOCYTES # (AUTO) 0.9 10^3/uL (1.0-4.0); LYMPHOCYTES % (AUTO) 19 % (12-44); MEAN CORPUSCULAR HEMOGLOBIN 27 pg (25-34); MEAN CORPUSCULAR HGB CONC 29 g/dL (32-36); MEAN CORPUSCULAR VOLUME 93 fL (80-99); MEAN PLATELET VOLUME 9.9 fL (9.0-12.2); MONOCYTES # (AUTO) 0.4 10^3/uL (0.0-1.0); MONOCYTES % (AUTO) 9 % (0-12); NEUTROPHILS # (AUTO) 3.4 10^3/uL (1.8-7.8); NEUTROPHILS % (AUTO) 69 % (42-75); PLATELET COUNT 172 10^3/uL (130-400); WHITE BLOOD COUNT 4.9 10^3/uL (4.3-11.0)
[2022-08-12 07:20] LABS: ALBUMIN 2.7 GM/DL (3.2-4.5); POTASSIUM 3.7 MMOL/L (3.6-5.0)
[2022-08-12 07:22] LABS: CALCIUM 7.8 MG/DL (8.5-10.1)
[2022-08-12 07:23] LABS: TOTAL PROTEIN 5.5 GM/DL (6.4-8.2)
[2022-08-12 07:24] LABS: BILIRUBIN,TOTAL 0.6 MG/DL (0.1-1.0)
[2022-08-12 07:26] LABS: CREATININE SERUM 0.67 MG/DL (0.60-1.30)
[2022-08-12 07:30] VITALS: BP 104/54
[2022-08-12] MEDS: polyethylene glycoL POWDER 17 GM (MIRALAX) PACK PO SCH ×2 (08:23→21:51)
[2022-08-12] MEDS: morphine ER 15 MG (MS CONTIN) TAB PO SCH ×2 (08:23→21:52)
[2022-08-12] MEDS: SENNA W/DOCUSATE (SENOKOT S) TABLET PO SCH ×2 (08:24→21:00)
[2022-08-12] MEDS: PANTOPRAZOLE 40 MG (PROTONIX) TAB PO SCH ×2 (08:24→21:53)
[2022-08-12] MEDS: VITAMIN D3 25 MCG (1,000 UNITS) TABLET PO SCH (08:24)
[2022-08-12] MEDS: DOCUSATE SODIUM 100 MG (COLACE) CAP PO SCH ×2 (08:24→21:52)
[2022-08-12] MEDS: FOLIC ACID 1 MG TAB PO SCH (08:24)
[2022-08-12] MEDS: BACLOFEN 10 MG (LIORESAL) TAB PO SCH ×3 (08:24→21:53)
[2022-08-12] MEDS: GABAPENTIN 100 MG (NEURONTIN) CAP PO SCH ×3 (08:24→21:52)
[2022-08-12] MEDS: OMEGA 3 (FISH OIL) 1000 MG CAP PO SCH ×2 (08:24→21:52)
[2022-08-12] MEDS: SUCRALFATE 1 GM (CARAFATE) TAB PO SCH ×2 (08:24→21:53)
[2022-08-12] MEDS: LORATADINE (CLARITIN) 10 MG TAB PO SCH (08:24)
[2022-08-12] MEDS: KCL 10 MEQ TAB (MICRO K) PO SCH ×3 (08:24→17:13)
[2022-08-12 20:00] VITALS: BP 126/59
[2022-08-12] MEDS: ROSUVASTATIN 20 MG (CRESTOR) TABLET PO SCH (21:52)
[2022-08-12] MEDS: ALPRAZolam 0.25 MG (XANAX) TAB PO PRN (21:53)
[2022-08-12] MEDS: DULoxetine 30 MG (CYMBALTA) CAP PO SCH (21:53)
[2022-08-13] MEDS ORDERED: LACT20SO2 PO (05:11)
[2022-08-13] MEDS ORDERED: BACL10TA PO (05:11)
[2022-08-13] MEDS ORDERED: SENN1TAB76 PO (05:11)
[2022-08-13] MEDS ORDERED: POTA-160 PO (05:11)
[2022-08-13] MEDS ORDERED: ACHYD1T PO (05:11)
[2022-08-13] MEDS ORDERED: MORP-68 PO (05:11)
[2022-08-13] MEDS ORDERED: GABA-486 PO (05:11)
[2022-08-13] MEDS ORDERED: ONDA4TAB11 PO (05:11)
--- NOTE | 2022-08-13 05:13 | D/C HH Face to Face Order ---
D/C Face to Face Orders Reconcile Patient Problems Problems Reviewed?: Yes Instructions for Patient Via [facility] Cube Route, Patient Instructions/FollowUp: PCP [address] Virgen as scheduled Physician to follow Patient: [facility] Discharge Diet for Home: No Restrictions Patient Problems: left hip fracture Patient Data-Allergies,Ht & Wt Patient Allergies: Coded Allergies: ciprofloxacin (Verified Allergy, Unknown, Rash, 07/30/22) latex (Verified Allergy, Unknown, HIVES, 07/30/22) niacin (Verified Allergy, Unknown, Rash, 07/30/22) nickel (Verified Allergy, Unknown, HIVES, 07/30/22) Height (Feet): 5 Height (Inches): 7.00 Weight (Pounds): 172 Weight (Ounces): 0.0 Home Health Need/Face to Face Date of Face to Face: Aug 13, 2022 Clinical Findings: Generalized weakness and fatigue, Immune-compromised, Instability, Muscle weakness, Pain with ambulation, Unsteady gait I have seen Pt [id number]: Yes Discharged To: Home Diagnosis/Conditions: hip fx Patient is Homebound due to: [place] fall risk due to instabilty, Muscle weakness, Pain w/ambulation Homebound Status Due to the above stated illness, injury or surgical procedure (medical condition or diagnosis) and associated clinical findings, the patient is homebound because of his/her inability to leave home except with aid of a supp ortive device and/or person AND leaving the home requires a considerable and taxing effort or is medically contraindicated. Pt req the following assistanc: Walker Home Health Nursing Orders Home Health Services Order: Nursing Services, Distribution Accounting Clerk-Evaluate & Treat, Physical Therapy-Evaluate & Treat Certify Stmt I certify that this patient is under my care and that I, a nurse practitioner or a physician; a post production assistant working with me, had a face to face encounter that - meets the physician face to face encounter requirements with this patient as dated. EDY IVEY DO Aug 13, 2022 05:13
--- NOTE | 2022-08-13 05:13 | Discharge Summary ---
Diagnosis/Chief Complaint Date of Admission Jul 30, 2022 at 13:35 Date of Discharge Discharge Date: Aug 13, 2022 Discharge Diagnosis Assessment: s/p left hip fracture repair Acute on chronic severe pain managed as outpatient by pain fitness management director CVA hx RA DM HTN CAD previous CABG GIB hx Post op anemia s/p 3 units of blood Iron deficiency Acute hypokalemia Plan: PT OT Pain control BM regimen Fall risk 07/31/2022: Replace potassium Supportive care 08/01/2022: Increase pain med doses 08/02/2022: Monitor pain 08/03/2022: Decrease MSO4 due to resp drive decrease SSE for narcotic bowel 08/04/2022: BM regimen successful 08/05/2022: Supportive care 08/06/2022: Monitor pain 08/07/2022: Monitor pain 08/08/2022: Monitor pain 08/09/2022: Bowel regimen Pain control 08/10/2022: Monitor closely 08/11/2022: Monitor closely Fall risk 08/12/2022: Hgb 7.8 (1) Intertrochanteric fracture of left hip Status: Acute (2) Iron deficiency anemia Discharge Summary Discharge Physical Examination Allergies: Coded Allergies: ciprofloxacin (Verified Allergy, Unknown, Rash, 07/30/22) latex (Verified Allergy, Unknown, HIVES, 07/30/22) niacin (Verified Allergy, Unknown, Rash, 07/30/22) nickel (Verified Allergy, Unknown, HIVES, 07/30/22) Vitals & I&Os Vital Signs Date Time Temp Pulse Resp B/P (MAP) Pulse Ox O2 Delivery O2 Flow Rate FiO2 08/13/22 09:30 Room Air 08/13/22 07:36 36.4 95 18 111/53 (72) 92 08/12/22 08:13 2.00 General Appearance: Alert, Oriented X3, Cooperative Respiratory: Clear to Auscultation Cardiovascular: Regular Rate Psych/Mental Status: Mental Status NL Hospital Course Was the Problem List Reviewed?: Yes Patient is a 71 year white female with past medical history of RA, IDDM, CAD, chronic anemia, and prior CVA presented to ER on 07-25-2022 for via EMS for complaints of left hip pain. She was in her house doing laundry when she fell on her left hip. She stated she felt immediate pain after the fall and was found by EMS laying on her right side, she denied losing conscious. She was taken to [facility], while en route she was given fentanyl for her pain. Once at the ER she was evaluated with imaging which showed concern for possible intertrochanteric fracture. The employment instructional associate orthopedics physician was contacted and stated he does not preform the operation necessary for this injury. Thus the ER physician decided to transfer her to [facility] in [place] where she sees cardiology, and could be more easily cleared for surgery. She was given 1 unit of blood before her surgery at [facility] and 2 units after her surgery due to her chronic anemia. Post surgery she was put on baclofen, gabapentin, and norco for pain. She then arrived at inpatient rehab on 07-30-2022 for S/P left hip fracture to begin physical and occupational therapy. She began therapy needing max assist to get up out of bed and sitting sounding device operator to take a shower. She also needed assistance with dressing the lower half of her body. With the help of PT and OT patient was able to sit and stand with minimal assistance and was able to dress her lower half with a oyster preparer by the end of her stay. Her hemoglobin remained above baseline throughout her stay. Her chronic pain and diabetes where managed appropriately throughout her stay. MICHAEL ALEXANDER Labs (last 24 hrs) Laboratory Tests 07/30/22 15:10: Glucometer 125H 07/30/22 20:31: Glucometer 119H 07/31/22 05:55: White Blood Count 5.7, Red Blood Count 3.19L, Hemoglobin 9.1L, Hematocrit 29L, Mean Corpuscular Volume 90, Mean Corpuscular Hemoglobin 29, Mean Corpuscular Hemoglobin Concent 32, Red Cell Distribution Width 19.1H, Platelet Count 119L, Mean Platelet Volume 10.1, Immature Granulocyte % (Auto) 1, Neutrophils (%) (Auto) 66, Lymphocytes (%) (Auto) 19, Monocytes (%) (Auto) 12, Eosinophils (%) (Auto) 3, Basophils (%) (Auto) 0, Neutrophils # (Auto) 3.7, Lymphocytes # (Auto) 1.1, Monocytes # (Auto) 0.7, Eosinophils # (Auto) 0.2, Basophils # (Auto) 0.0, Immature Granulocyte # (Auto) 0.0, Percent Immature Platelet Fraction 2.9, Sodium Level 141, Potassium Level 3.0L, Chloride Level 104, Carbon Dioxide Level 24, Anion Gap 13, Blood Urea Nitrogen 12, Creatinine 0.77, Estimat Glomerular Filtration Rate 82, BUN/Creatinine Ratio 16, Glucose Level 90, Calcium Level 8.6, Corrected Calcium 9.2, Total Bilirubin 1.1H, Aspartate Amino Transf (AST/SGOT) 37H, Alanine Aminotransferase (ALT/SGPT) 26, Alkaline Phosphatase 119, Total Protein 6.1L, Albumin 3.2 07/31/22 06:45: Iron Level 41, Vitamin B12 Level 357 07/31/22 11:02: Glucometer 110 07/31/22 15:23: Glucometer 88 07/31/22 20:51: Glucometer 127H 08/01/22 05:54: Glucometer 103 08/01/22 10:44: Glucometer 135H 08/01/22 15:37: Glucometer 133H 08/01/22 20:15: Glucometer 119H 08/02/22 05:40: Glucometer 136H 08/02/22 10:48: Glucometer 128H 08/02/22 16:00: Glucometer 105 08/02/22 20:57: Glucometer 152H 08/03/22 06:03: Glucometer 142H 08/03/22 11:09: Glucometer 125H 08/03/22 15:40: Glucometer 133H 08/03/22 20:17: Glucometer 156H 08/04/22 06:37: Glucometer 136H 08/04/22 11:02: Glucometer 123H 08/04/22 16:15: Glucometer 122H 08/04/22 20:10: Glucometer 160H 08/05/22 06:04: Glucometer 121H 08/05/22 11:13: Glucometer 189H 08/05/22 15:56: Glucometer 158H 08/05/22 21:02: Glucometer 128H 08/06/22 05:45: White Blood Count 5.6, Red Blood Count 3.01L, Hemoglobin 8.3L, Hematocrit 28L, Mean Corpuscular Volume 93, Mean Corpuscular Hemoglobin 28, Mean Corpuscular Hemoglobin Concent 30L, Red Cell Distribution Width 19.5H, Platelet Count 158, Mean Platelet Volume 10.5, Immature Granulocyte % (Auto) 1, Neutrophils (%) (Auto) 74, Lymphocytes (%) (Auto) 14, Monocytes (%) (Auto) 8, Eosinophils (%) (Auto) 2, Basophils (%) (Auto) 0, Neutrophils # (Auto) 4.2, Lymphocytes # (Auto) 0.8L, Monocytes # (Auto) 0.5, Eosinophils # (Auto) 0.1, Basophils # (Auto) 0.0, Immature Granulocyte # (Auto) 0.0, Sodium Level 140, Potassium Level 3.7, Chl oride Level 105, Carbon Dioxide Level 24, Anion Gap 11, Blood Urea Nitrogen 14, Creatinine 0.88, Estimat Glomerular Filtration Rate 70, BUN/Creatinine Ratio 16, Glucose Level 131H, Calcium Level 8.7, Corrected Calcium 9.7, Total Bilirubin 0.7, Aspartate Amino Transf (AST/SGOT) 29, Alanine Aminotransferase (ALT/SGPT) 22, Alkaline Phosphatase 148H, Total Protein 5.7L, Albumin 2.8L 08/06/22 11:01: Glucometer 140H 08/06/22 12:12: Ferritin 96.8 08/06/22 15:33: Glucometer 97 08/06/22 20:53: Glucometer 136H 08/07/22 06:22: Glucometer 122H 08/07/22 10:57: Glucometer 108 08/07/22 15:38: Glucometer 100 08/07/22 20:52: Glucometer 135H 08/08/22 05:50: Glucometer 135H 08/08/22 10:37: Glucometer 188H 08/08/22 15:08: Glucometer 138H 08/08/22 20:11: Glucometer 207H 08/09/22 05:28: Glucometer 153H 08/09/22 11:02: Glucometer 216H 08/09/22 15:09: Glucometer 125H 08/09/22 20:38: Glucometer 190H 08/10/22 05:08: Glucometer 172H 08/10/22 10:47: Glucometer 131H 08/10/22 15:33: Glucometer 203H 08/10/22 21:09: Glucometer 221H 08/11/22 05:33: Glucometer 176H 08/11/22 11:05: Glucometer 186H 08/11/22 15:21: Glucometer 157H 08/11/22 21:01: Glucometer 198H 08/12/22 05:45: Glucometer 169H 08/12/22 07:02: White Blood Count 4.9, Red Blood Count 2.93L, Hemoglobin 7.8L, Hematocrit 27L, Mean Corpuscular Volume 93, Mean Corpuscular Hemoglobin 27, Mean Corpuscular Hemoglobin Concent 29L, Red Cell Distribution Width 19.6H, Platelet Count 172, Mean Platelet Volume 9.9, Immature Granulocyte % (Auto) 0, Neutrophils (%) (Auto) 69, Lymphocytes (%) (Auto) 19, Monocytes (%) (Auto) 9, Eosinophils (%) (Auto) 3, Basophils (%) (Auto) 0, Neutrophils # (Auto) 3.4, Lymphocytes # (Auto) 0.9L, Monocytes # (Auto) 0.4, Eosinophils # (Auto) 0.1, Basophils # (Auto) 0.0, Immature Granulocyte # (Auto) 0.0, Sodium Level 142, Potassium Level 3.7, Chloride Level 108H, Carbon Dioxide Level 24, Anion Gap 10, Blood Urea Nitrogen 11, Creatinine 0.67, Estimat Glomerular Filtration Rate 93, BUN/Creatinine Ratio 16, Glucose Level 154H, Calcium Level 7.8L, Corrected Calcium 8.8, Total Bilirubin 0.6, Aspartate Amino Transf (AST/SGOT) 27, Alanine Aminotransferase (ALT/SGPT) 17, Alkaline Phosphatase 174H, Total Protein 5.5L, Albumin 2.7L 08/12/22 11:12: Glucometer 194H 08/12/22 16:01: Glucometer 179H 08/12/22 20:38: Glucometer 219H 08/13/22 05:12: Glucometer 147H Pending Labs Laboratory Tests 07/30/22 15:10: Glucometer 125 07/30/22 20:31: Glucometer 119 07/31/22 05:55: White Blood Count 5.7, Red Blood Count 3.19, Hemoglobin 9.1, Hematocrit 29, Mean Corpuscular Volume 90, Mean Corpuscular Hemoglobin 29, Mean Corpuscular Hemoglo bin Concent 32, Red Cell Distribution Width 19.1, Platelet Count 119, Mean Platelet Volume 10.1, Immature Granulocyte % (Auto) 1, Neutrophils (%) (Auto) 66, Lymphocytes (%) (Auto) 19, Monocytes (%) (Auto) 12, Eosinophils (%) (Auto) 3, Basophils (%) (Auto) 0, Neutrophils # (Auto) 3.7, Lymphocytes # (Auto) 1.1, Monocytes # (Auto) 0.7, Eosinophils # (Auto) 0.2, Basophils # (Auto) 0.0, Immature Granulocyte # (Auto) 0.0, Percent Immature Platelet Fraction 2.9, Sodium Level 141, Potassium Level 3.0, Chloride Level 104, Carbon Dioxide Level 24, Anion Gap 13, Blood Urea Nitrogen 12, Creatinine 0.77, Estimat Glomerular Filtration Rate 82, BUN/Creatinine Ratio 16, Glucose Level 90, Calcium Level 8.6, Corrected Calcium 9.2, Total Bilirubin 1.1, Aspartate Amino Transf ( AST/SGOT) 37, Alanine Aminotransferase (ALT/SGPT) 26, Alkaline Phosphatase 119, Total Protein 6.1, Albumin 3.2 07/31/22 06:45: Iron Level 41, Vitamin B12 Level 357 07/31/22 11:02: Glucometer 110 07/31/22 15:23: Glucometer 88 07/31/22 20:51: Glucometer 127 08/01/22 05:54: Glucometer 103 08/01/22 10:44: Glucometer 135 08/01/22 15:37: Glucometer 133 08/01/22 20:15: Glucometer 119 08/02/22 05:40: Glucometer 136 08/02/22 10:48: Glucometer 128 08/02/22 16:00: Glucometer 105 08/02/22 20:57: Glucometer 152 08/03/22 06:03: Glucometer 142 08/03/22 11:09: Glucometer 125 08/03/22 15:40: Glucometer 133 08/03/22 20:17: Glucometer 156 08/04/22 06:37: Glucometer 136 08/04/22 11:02: Glucometer 123 08/04/22 16:15: Glucometer 122 08/04/22 20:10: Glucometer 160 08/05/22 06:04: Glucometer 121 08/05/22 11:13: Glucometer 189 08/05/22 15:56: Glucometer 158 08/05/22 21:02: Glucometer 128 08/06/22 05:45: White Blood Count 5.6, Red Blood Count 3.01, Hemoglobin 8.3, Hematocrit 28, Mean Corpuscular Volume 93, Mean Corpuscular Hemoglobin 28, Mean Corpuscular Hemoglobin Concent 30, Red Cell Distribution Width 19.5, Platelet Count 158, Mean Platelet Volume 10.5, Immature Granulocyte % (Auto) 1, Neutrophils (%) (Auto) 74, Lymphocytes (%) (Auto) 14, Monocytes (%) (Auto) 8, Eosinophils (%) (Auto) 2, Basophils (%) (Auto) 0, Neutrophils # (Auto) 4.2, Lymphocytes # (Auto) 0.8, Monocytes # (Auto) 0.5, Eosinophils # (Auto) 0.1, Basophils # (Auto) 0.0, Immature Granulocyte # (Auto) 0.0, Sodium Level 140, Potassium Level 3.7, Chloride Level 105, Carbon Dioxide Level 24, Anion Gap 11, Blood Urea Nitrogen 14, Creatinine 0.88, Estimat Glomerular Filtration Rate 70, BUN/Creatinine Ratio 16, Glucose Level 131, Calcium Level 8.7, Corrected Calcium 9.7, Total Bilirubin 0.7, Aspartate Amino Transf (AST/SGOT) 29, Alanine Aminotransferase (ALT/SGPT) 22, Alkaline Phosphatase 148, Total Protein 5.7, Albumin 2.8 08/06/22 11:01: Glucometer 140 08/06/22 12:12: Ferritin 96.8 08/06/22 15:33: Glucometer 97 08/06/22 20:53: Glucometer 136 08/07/22 06:22: Glucometer 122 08/07/22 10:57: Glucometer 108 08/07/22 15:38: Glucometer 100 08/07/22 20:52: Glucometer 135 08/08/22 05:50: Glucometer 135 08/08/22 10:37: Glucometer 188 08/08/22 15:08: Glucometer 138 08/08/22 20:11: Glucometer 207 08/09/22 05:28: Glucometer 153 08/09/22 11:02: Glucometer 216 08/09/22 15:09: Glucometer 125 08/09/22 20:38: Glucometer 190 08/10/22 05:08: Glucometer 172 08/10/22 10:47: Glucometer 131 08/10/22 15:33: Glucometer 203 08/10/22 21:09: Glucometer 221 08/11/22 05:33: Glucometer 176 08/11/22 11:05: Glucometer 186 08/11/22 15:21: Glucometer 157 08/11/22 21:01: Glucometer 198 08/12/22 05:45: Glucometer 169 08/12/22 07:02: White Blood Count 4.9, Red Blood Count 2.93, Hemoglobin 7.8, Hematocrit 27, Mean Corpuscular Volume 93, Mean Corpuscular Hemoglobin 27, Mean Corpuscular Hemoglobin Concent 29, Red Cell Distribution Width 19.6, Platelet Count 172, Mean Platelet Volume 9.9, Immature Granulocyte % (Auto) 0, Neutrophils (%) (Auto) 69, Lymphocytes (%) (Auto) 19, Monocytes (%) (Auto) 9, Eosinophils (%) (Auto) 3, Basophils (%) (Auto) 0, Neutrophils # (Auto) 3.4, Lymphocytes # (Auto) 0.9, Monocytes # (Auto) 0.4, Eosinophils # (Auto) 0.1, Basophils # (Auto) 0.0, Immature Granulocyte # (Auto) 0.0, Sodium Level 142, Potassium Level 3.7, Chloride Level 108, Carbon Dioxide Level 24, Anion Gap 10, Blood Urea Nitrogen 11, Creatinine 0.67, Estimat Glomerular Filtration Rate 93, BUN/Creatinine Ratio 16, Glucose Level 154, Calcium Level 7.8, Corrected Calcium 8.8, Total Bilirubin 0.6, Aspartate Amino Transf (AST/SGOT) 27, Alanine Aminotransferase (ALT/SGPT) 17, Alkaline Phosphatase 174, Total Protein 5.5, Albumin 2.7 08/12/22 11:12: Glucometer 194 08/12/22 16:01: Glucometer 179 08/12/22 20:38: Glucometer 219 08/13/22 05:12: Glucometer 147 Discharge Home Medications: Active Scripts Active Ondansetron Odt (Ondansetron) 4 Mg Tab.rapdis 4 Mg PO Q6H PRN Stool Softener-Laxative Tablet (Sennosides/Docusate Sodium) 8.6 Mg-50 Mg Tablet 1 Ea PO BID Klor-Con 10 (Potassium Chloride) 10 Meq Tablet.er 10 Meq PO DAILY Lactulose 20 Gram/30 Ml Solution 10 Gm PO BID PRN Gabapentin 100 Mg Capsule 100 Mg PO TID Morphine Sulfate ER (Morphine Sulfate) 15 Mg Tablet.er 15 Mg PO Q12HR HYDROcodone/APAP 10/325 TABLET (Acetaminophen/Hydrocodone Bitart) 1 Ea Tab 1 Ea PO Q4HR PRN Baclofen 10 Mg Tablet 5 Mg PO TID Reported Vitamin E (Vitamin E (Dl,Tocopheryl Acet)) 180 Mg (400 Unit) Capsule 360 Mg PO BID TAKES 2 (180MG) CAP Novolog Flexpen (Insulin Aspart) 100 Unit/Ml (3 Ml) Solution 25 Units SQ BID FILLED 12-08-2021 #4 BOXES Tresiba Flextouch U-200 (Insulin Degludec) 200 Unit/Ml (3 Ml) Insuln.pen 44 Units SQ HS Fish Oil 1,200 mg Softgel (Organ-3/Dha/Epa/Fish Oil) 1,200 Mg (144 Mg-216 Mg) Capsule 1,200 Mg PO BID Duloxetine HCl 30 Mg Capsule.dr 30 Mg PO HS TAKES 60MG +30MG TOGETHER TO EQUAL 90MG One Daily Plus Minerals (Multivitamin with Minerals) 1 Each Tablet 1 Each PO DAILY Vitamin D3 (Cholecalciferol (Vitamin D3)) 25 Mcg (1000 Unit) Capsule 25 Mcg PO DAILY Hydroxychloroquine Sulfate 200 Mg Tablet 200 Mg PO DAILY Ozempic (Semaglutide) Unknown Strength Pen.injctr 0.5 Mg SQ MON Sucralfate 1 Gram Tablet 2 Gm PO BID TAKES 2 (1GM) TABS Folic Acid 1 Mg Tablet 1 Mg PO DAILY Pantoprazole Sodium 40 Mg Tablet.dr 40 Mg PO BID Metformin HCl 1,000 Mg Tablet 1,000 Mg PO BID Duloxetine HCl 60 Mg Capsule.dr 60 Mg PO HS TAKES 60MG +30MG TOGETHER TO EQUAL 90MG Rosuvastatin Calcium 40 Mg Tablet 40 Mg PO HS Instructions to patient/family Please see electronic discharge instructions given to patient. Diagnosis/Problems Diagnosis/Problems (1) Intertrochanteric fracture of left hip Status: Acute (2) Iron deficiency anemia Clinical Quality Measures DVT/VTE Risk/Contraindication: Contraindications-Pharm: Other *list below* Other: anemia and blood loss EDY IVEY DO Aug 13, 2022 05:13
[2022-08-13] MEDS: inSUlin ASPART (NovoLOG) 1 UNIT/0.01 ML (CHARGE PER UNIT) SC SCH (06:32)
[2022-08-13] MEDS: HYDROXYCHLOROQUINE 200 MG (PLAQUENIL) TAB PO SCH (06:41)
[2022-08-13] MEDS: MULTIVIT W/MINERALS TAB (THERAGRAN M) PO SCH (06:41)
[2022-08-13] MEDS: inSUlin ASPART (NovoLOG) 1 UNIT/0.01 ML (CHARGE PER UNIT) SQ SCH (06:42)
[2022-08-13 07:36] VITALS: BP 111/53
--- NOTE | 2022-08-13 08:50 | Occupational Ther Daily Note ---
OT Current Status-Daily Note Subjective Pt laying in bed upon arrival. She agrees to therapy. Appearance Pt left sitting in recliner with all needs within reach. Mental Status/Objective Patient Orientation: Person Attachments: IV Acute change in mental status: 1 Inattention: 2 Disorganized thinkin Altered level of consciousness: 0 ADL-Treatment Therapy Code Descriptions/Definitions Functional [place] Measure: 0=Not Assessed/NA 4=Minimal Assistance 1=Total Assistance 5=Supervision or Setup 2=Maximal Assistance 6=Modified [place] 3=Moderate Assistance 7=Complete IndependenceSCALE: Activities may be completed with or without assistive devices. 5-Blkkvhszta-tbdrpky completes the activity by him/herself with no assistance from a helper. 5-Set-up or Clean-up Assistance-helper sets up or cleans up; patient completes activity. [place] assists only prior to or following the activity. 4-Supervision or Touching Assistance-helper provides verbal cues and/or touching/steadying and/or contact guard assistance as patient completes activity. Assistance may be provided throughout the activity or intermittently. 3-Partial/Moderate Assistance-helper does LESS THAN HALF the effort. [place] lifts, holds or supports trunk or limbs, but provides less than half the effort. 2-Substantial/Maximal Assistance-helper does MORE THAN HALF the effort. [place] lifts or holds trunk or limbs and provides more than half the effort. 1-Npfoplubt-cwyypb does ALL the effort. Patient does none of the effort to complete the activity. Or, the assistance of 2 or more helpers is required for the patient to complete the activity. If activity was not attempted, code reason: 7-Patient Refused. 9-Not Applicable-not attempted and the patient did not perform the activity before the current illness, exacerbation or injury. 10-Not Attempted due to Environmental Limitations-(lack of equipment, weather restraints, etc.). 88-Not Attempted due to Medical Conditions or Safety Concerns. Eating (QC): 6 Oral Hygiene (QC): 6 Shower/Bathe Self (QC): 5 Upper Body Dressing (QC): 5 Lower Body Dressing (QC): 3 (Min a for balance) On/Off Footwear: 5 Toileting Hygiene (QC): 4 (Requires CGA-min a for balance during clothing management) Toilet Transfer (QC): 3 Bed mobility, supine<>sit was SBA with extra time to complete task. Sit <> stand transfers completed with mod assist x1 today. Cues for proper technique of sit <> stand is required every time. Pt showered 100% seated. Pt used social studies department chair and required cues for orientation and for threading bilateral legs. She needs daily reminders to don surgical leg first into LB clothing. Pt often disagrees with therapist, stating it's easier for me to do it opposite. Steadying assist required when standing to complete clothing management. Pt needs no cues or assistance for donning socks with sock aide. Pt performed grooming 100% in seated. Education OT Patient Education: Correct positioning, Disease process, Energy conservation, Modified ADL techniques, Progress toward Goal/Update tx plan, Purpose of tx/functional activities, Reviewed precautions, Rehab process, Safety issues, Transfer techniques, Use of adapted equipment Teaching Recipient: Patient Teaching Methods: Demonstration, Discussion Response to Teaching: Verbalize Understanding, Return Demonstration, Reinforcement Needed OT Short Term Goals Short Term Goals Time Frame: Aug 13, 2022 Eatin Oral hygiene: 5 Toileting hygiene: 2 Shower/bathe self: 3 Upper body dressin Lower body dressin Putting on/taking off footwear: 2 OT Licensed Occupational Therapist Goals Licensed Occupational Therapist Goals Time Frame: Aug 24, 2022 Acute change in mental status: 1 Inattention: 2 Disorganized thinkin Altered level of consciousness: 0 Eating (QC): 6 (met) Oral Hygiene (QC): 6 (met) Toileting Hygiene (QC): 4 (met) Shower/Bathe Self (QC): 5 (met) Upper Body Dressing (QC): 5 (met) Lower Body Dressing (QC): 4 (not met) On/Off Footwear (QC): 4 (met) Additional Goals: 1-Demonstrate ADL Tasks, 2-Verbalize Understanding, 3- ImproveStrength/Singh 1=Demonstrate adherence to instructed precautions during ADL tasks. 2=Patient will verbalize/demonstrate understanding of assistive devices/modifications for ADL. 3=Patient will improve strength/tolerance for activity to enable patient to perform ADL's. OT Education/Plan Problem List/Assessment Assessment: Decreased Activ Tolerance, Decreased Safety Aware, Decreased UE Strength, Dependent Transfers, Edema, Impaired Cognition, Impaired Coordination, Impaired Funct Balance, Impaired I ADL's, Impaired Self-Care Skills Discharge Recommendations Plan/Recommendations: Continue POC Therapy Discharge Recommendati: Scheduled Assistance, Bath Aide, Home & Family, Post Acute OT (Home health OT) Equpiment Recommendations-D/C: County Supervisor, Sock Aide Treatment Plan/Plan of Care Treatment,Training & Education: Yes Patient would benefit from OT for education, treatment and training to promote independence in ADL's, mobility, safety and/or upper extremity function for ADL's. Plan of Care: ADL Retraining, Caregiver Training, Cognitive Retraining, Concurrent Therapy, Functional Mobility, Group Exercise/Act as Ind, UE Funct Exercise/Act, W/C Management Training Treatment Duration: Aug 24, 2022 Frequency: At least 5 of 7 days/Wk (IRF) Estimated Hrs Per Day: 1.5 hours per day (75-90 min/day) Agreement: Yes Rehab Potential: Guarded Time/GCodes Start Time: 07:40 Stop Time: 08:45 Total Time Billed (hr/min): 65 Billed Treatment Time 1 visit ADL x4 Jennifer Hand OT Aug 13, 2022 08:50
[2022-08-13] MEDS: GABAPENTIN 100 MG (NEURONTIN) CAP PO SCH (08:59)
[2022-08-13] MEDS: BACLOFEN 10 MG (LIORESAL) TAB PO SCH (08:59)
[2022-08-13] MEDS: KCL 10 MEQ TAB (MICRO K) PO SCH (08:59)
[2022-08-13] MEDS: SUCRALFATE 1 GM (CARAFATE) TAB PO SCH (08:59)
[2022-08-13] MEDS: PANTOPRAZOLE 40 MG (PROTONIX) TAB PO SCH (09:00)
[2022-08-13] MEDS ORDERED: OZEMPIC SQ SCH (09:00)
[2022-08-13] MEDS: morphine ER 15 MG (MS CONTIN) TAB PO SCH (09:00)
[2022-08-13] MEDS: SENNA W/DOCUSATE (SENOKOT S) TABLET PO SCH (09:00)
[2022-08-13] MEDS: OMEGA 3 (FISH OIL) 1000 MG CAP PO SCH (09:00)
[2022-08-13] MEDS: polyethylene glycoL POWDER 17 GM (MIRALAX) PACK PO SCH (09:00)
[2022-08-13] MEDS: VITAMIN D3 25 MCG (1,000 UNITS) TABLET PO SCH (09:00)
[2022-08-13] MEDS: LORATADINE (CLARITIN) 10 MG TAB PO SCH (09:00)
[2022-08-13] MEDS: FOLIC ACID 1 MG TAB PO SCH (09:00)
[2022-08-13] MEDS: DOCUSATE SODIUM 100 MG (COLACE) CAP PO SCH (09:00)
--- NOTE | 2022-08-13 10:18 | Progress Note ---
MICHAEL ALEXANDER 08/13/22 1017: Progress Note Patient is a 71 year white female with past medical history of RA, IDDM, CAD, chronic anemia, and prior CVA presented to ER on 07-25-2022 for via EMS for complaints of left hip pain. She was in her house doing laundry when she fell on her left hip. She stated she felt immediate pain after the fall and was found by EMS laying on her right side, she denied losing conscious. She was taken to [facility], while en route she was given fentanyl for her pain. Once at the ER she was evaluated with imaging which showed concern for possible intertrochanteric fracture. The coordinator of online programs orthopedics physician was contacted and stated he does not preform the operation necessary for this injury. Thus the ER physician decided to transfer her to [facility] in [place] where she sees cardiology, and could be more easily cleared for surgery. She was given 1 unit of blood before her surgery at [facility] and 2 units after her surgery due to her chronic anemia. Post surgery she was put on baclofen, gabapentin, and norco for pain. She then arrived at inpatient rehab on 07-30-2022 for S/P left hip fracture to begin physical and occupational therapy. She began therapy needing max assist to get up out of bed and sitting methods time analyst to take a shower. She also needed assistance with dressing the lower half of her body. With the help of PT and OT patient was able to sit and stand with minimal assistance and was able to dress her lower half with a hay chopper by the end of her stay. Her hemoglobin remained above baseline throughout her stay. Her chronic pain and diabetes where managed appropriately throughout her stay. ADORE IVEY DO 08/14/22 0519: Supervisory-Addendum Brief Verification & Attestation Participated in pt care: history, MDM, physical Personally performed: exam, history, MDM, supervision of care Care discussed with: Medical Student Procedures: n/a Results interpretation: Verified all documentation Verification and Attestation of Medical Student E/M Service A medical student performed and documented this service in my presence. I reviewed and verified all information documented by the medical student and made modifications to such information, when appropriate. I personally performed the physical exam and medical decision making. Adore Ivey Aug 14, 2022,05:19 MICHAEL ALEXANDER Aug 13, 2022 10:17 ADORE IVEY DO Aug 14, 2022 05:19
--- NOTE | 2022-08-13 10:38 | Therapy Team Discharge Summary ---
Therapy Discharge Summary Discharge Recommendations Date of Discharge Physical Therapy Patient came to rehab following a left hip fx, IM nail. Upon evaluation patient performed rolling and supine <-> sit max assist, sit <-> stand and transfers max assist, car transfer max assist, ambulated 3' with a rolling walker, and propelled a manual WC 50' with min/mod assist. Patient has been performing bed mobility and transfer training, balance and endurance training,functional strengthening, gait training, and education. Patient has made some progress and has met senior care goals for transfers, ambulation, stairs, and picking up an object from the floor. Now, patient performs rolling and supine <-> sit with min/mod assist, sit <-> stand min/mod assist, transfers CGA/SBA, car transfer min/mod assist, ambulates 150' with a rolling walker with CGA/SBA (including 50' with at least 2 turns of 90 degrees and 10' over an uneven surface), can go up and down 12 steps using 1 handrail and a walker with min/mod assist, and can medicinal plant picker an object from the floor using a treatment technician with CGA/SBA. Patient is being discharged from this facility today and will be discharged from PT at this time. Roll Left to Right (QC): 3 Sit to Lying (QC): 3 Lying to Sitting/Side of Bed(Q: 3 Sit to Stand (QC): 3 Chair/Nkv-fl-Nnfip Xfer(QC): 4 Toilet Transfer (QC): 4 Car Transfer (QC): 3 Does the Patient Walk: Yes Mode of Locomotion: Both Anticipated Mode of Locomotion: Both Walk 10 feet (QC): 4 Walk 50 ft with 2 Turns(QC): 4 Walk 150 ft (QC): 4 Walking 10ft on uneven surface: 4 Distance: 3 feet Gait Assistive Device: FWW Does the Pt Use a Wheelchair: No Wheelchair Distance: 50 Wheel 50 ft with 2 turns (QC): 9 Wheel 150 ft (QC): 9 Type of Wheelchair: Manual #of Steps: 12 1 Step (curb) (QC): 3 4 Steps (QC): 3 12 Steps (QC): 3 Balance Sitting Static: Fair Balance Sitting Dynamic: Poor Balance-Standing Static: Poor Picking up an Object (QC): 4 Occupational Therapy Decreased Activ Tolerance, Decreased Safety Aware, Decreased UE Strength, Dependent Transfers, Edema, Impaired Cognition, Impaired Coordination, Impaired Funct Balance, Impaired I ADL's, Impaired Self-Care Skills Eating (QC): 6 Oral Hygiene (QC): 6 Shower/Bathe Self (QC): 5 Upper Body Dressing (QC): 5 Lower Body Dressing (QC): 3 (Min a for balance) On/Off Footwear (QC): 5 Toileting Hygiene (QC): 4 (Requires CGA-min a for balance during clothing management) PT Automatic Riveting Machine Operator Goals Fpc Goals PT Automatic Riveting Machine Operator Goals Time Frame: Aug 24, 2022 PT OT Pain Eval : Comment: Pt reports 10/10 pain but visually doesn't demonstrate this, 6/10 at rest. Scoring Section J - Health Conditions 1. Rarely or not at all 2. Occasionally 3. Frequently 4. Almost constantly 8. Unable to answer Roll Left to Right (QC): 4 Sit to Lying (QC): 4 Lying-Sitting on Side/Bed(QC): 4 Sit to Stand (QC): 4 Chair/Dar-xj-Dypas Xfer(QC): 4 Car Transfer (QC): 4 Does the Patient Walk: Yes Walk 10 feet (QC): 4 Walk 10ft-Uneven Surface(QC): 4 Walk 50ft with 2 Turns (QC): 4 Walk 150 ft (QC): 3 Does the Pt use WC or Scooter?: Yes Wheel 50 feet with 2 turns (QC: 6 1 Step (curb) (QC): 3 4 Steps (QC): 3 12 Steps (QC): 3 Picking up an Object (QC): 4 OT Fpc Goals Automatic Riveting Machine Operator Goals Time Frame: Aug 24, 2022 Acute change in mental status: 1 Inattention: 2 Disorganized thinkin Altered level of consciousness: 0 Eating (QC): 6 (met) Oral Hygiene (QC): 6 (met) Toileting Hygiene (QC): 4 (met) Shower/Bathe Self (QC): 5 (met) Upper Body Dressing (QC): 5 (met) Lower Body Dressing (QC): 4 (not met) On/Off Footwear (QC): 4 (met) Additional Goals: 1-Demonstrate ADL Tasks, 2-Verbalize Understanding, 3- ImproveStrength/Singh 1=Demonstrate adherence to instructed precautions during ADL tasks. 2=Patient will verbalize/demonstrate understanding of assistive devices/modifications for ADL. 3=Patient will improve strength/tolerance for activity to enable patient to perform ADL's. Speech Automatic Riveting Machine Operator Goals Automatic Riveting Machine Operator Goals The patient will demonstrate improved cognitive linguistic skills for safe discharge to the least restrictive environment. Time Frame: Ten Days. LAURA RAE PT Aug 13, 2022 10:38
--- NOTE | 2022-08-13 13:22 | Therapy Team Discharge Summary ---
Therapy Discharge Summary Discharge Recommendations Date of Discharge Therapy D/C Recommendations: Bath Aide, Home w/ Family Support, Occupational Therapy Home Care, Homemaker Support, Scheduled Assistance Physical Therapy Roll Left to Right (QC): 3 Sit to Lying (QC): 3 Lying to Sitting/Side of Bed(Q: 3 Sit to Stand (QC): 3 Chair/Vsl-xu-Aklpw Xfer(QC): 4 Toilet Transfer (QC): 4 Car Transfer (QC): 3 Does the Patient Walk: Yes Mode of Locomotion: Both Anticipated Mode of Locomotion: Both Walk 10 feet (QC): 4 Walk 50 ft with 2 Turns(QC): 4 Walk 150 ft (QC): 4 Walking 10ft on uneven surface: 4 Distance: 3 feet Gait Assistive Device: FWW Does the Pt Use a Wheelchair: No Wheelchair Distance: 50 Wheel 50 ft with 2 turns (QC): 9 Wheel 150 ft (QC): 9 Type of Wheelchair: Manual #of Steps: 12 1 Step (curb) (QC): 3 4 Steps (QC): 3 12 Steps (QC): 3 Balance Sitting Static: Fair Balance Sitting Dynamic: Poor Balance-Standing Static: Poor Picking up an Object (QC): 4 Occupational Therapy Pt was admitted to [facility] s/p Left Hip Repair. At time of evaluation she was dependent with lower body dressing, footwear, showering, and toilet hygiene, supervision for eating and oral hygiene and set up for upper body dressing. During her rehab stay, OT focused on UE strength, balance, coordination, endurance, pain management and safety in order to improve performance and independence in adls and functional transfers. Pt had fair progress and met all of her terminal worker goals except lower body dressing (pt needs steadying assist during clothing management). See below for current levels of assist. Pt will be discharging from this facility today and will be discharged from OT at this time. Decreased Activ Tolerance, Decreased Safety Aware, Decreased UE Strength, Dependent Transfers, Edema, Impaired Cognition, Impaired Coordination, Impaired Funct Balance, Impaired I ADL's, Impaired Self-Care Skills Eating (QC): 6 Oral Hygiene (QC): 6 Shower/Bathe Self (QC): 5 Upper Body Dressing (QC): 5 Lower Body Dressing (QC): 3 (Min a for balance) On/Off Footwear (QC): 5 Toileting Hygiene (QC): 4 (Requires CGA-min a for balance during clothing management) PT Residential Goals Residential Goals PT Residential Goals Time Frame: Aug 24, 2022 PT OT Pain Eval : Comment: Pt reports 10/10 pain but visually doesn't demonstrate this, 6/10 at rest. Scoring Section J - Health Conditions 1. Rarely or not at all 2. Occasionally 3. Frequently 4. Almost constantly 8. Unable to answer Roll Left to Right (QC): 4 Sit to Lying (QC): 4 Lying-Sitting on Side/Bed(QC): 4 Sit to Stand (QC): 4 Chair/Pmy-hc-Gunma Xfer(QC): 4 Car Transfer (QC): 4 Does the Patient Walk: Yes Walk 10 feet (QC): 4 Walk 10ft-Uneven Surface(QC): 4 Walk 50ft with 2 Turns (QC): 4 Walk 150 ft (QC): 3 Does the Pt use WC or Scooter?: Yes Wheel 50 feet with 2 turns (QC: 6 1 Step (curb) (QC): 3 4 Steps (QC): 3 12 Steps (QC): 3 Picking up an Object (QC): 4 OT Residential Goals Party Plan Sales Host/Hostess Goals Time Frame: Aug 24, 2022 Acute change in mental status: 1 Inattention: 2 Disorganized thinkin Altered level of consciousness: 0 Eating (QC): 6 (met) Oral Hygiene (QC): 6 (met) Toileting Hygiene (QC): 4 (met) Shower/Bathe Self (QC): 5 (met) Upper Body Dressing (QC): 5 (met) Lower Body Dressing (QC): 4 (not met) On/Off Footwear (QC): 4 (met) Additional Goals: 1-Demonstrate ADL Tasks, 2-Verbalize Understanding, 3- ImproveStrength/Singh 1=Demonstrate adherence to instructed precautions during ADL tasks. 2=Patient will verbalize/demonstrate understanding of assistive devices/modifications for ADL. 3=Patient will improve strength/tolerance for activity to enable patient to perform ADL's. Speech Residential Goals Party Plan Sales Host/Hostess Goals The patient will demonstrate improved cognitive linguistic skills for safe discharge to the least restrictive environment. Time Frame: Ten Days. Jennifer Hand OT Aug 13, 2022 13:22
== END 2022-08-13 10:15 | disposition home health service (06) | DRG 561 ==
PROVIDERS: ADMIT Internal Medicine; ATTEND Internal Medicine
DX: S72.142D Displaced intertrochanteric fracture of left femur, subsequent encounter for closed fracture with routine healing (principal); E11.9 Type 2 diabetes mellitus without complications; M06.9 Rheumatoid arthritis, unspecified; M19.91 Primary osteoarthritis, unspecified site; D50.9 Iron deficiency anemia, unspecified; I25.10 Atherosclerotic heart disease of native coronary artery without angina pectoris; E78.00 Pure hypercholesterolemia, unspecified; G62.9 Polyneuropathy, unspecified; I73.9 Peripheral vascular disease, unspecified; K21.9 Gastro-esophageal reflux disease without esophagitis; E87.6 Hypokalemia; K57.90 Diverticulosis of intestine, part unspecified, without perforation or abscess without bleeding; H54.3 Unqualified visual loss, both eyes; G89.29 Other chronic pain; Z87.891 Personal history of nicotine dependence; Z95.1 Presence of aortocoronary bypass graft; Z86.73 Personal history of transient ischemic attack (TIA), and cerebral infarction without residual deficits; Z79.84 Long term (current) use of oral hypoglycemic drugs; Z79.4 Long term (current) use of insulin; Z79.899 Other long term (current) drug therapy; Z88.1 Allergy status to other antibiotic agents; Z91.040 Latex allergy status; Z88.8 Allergy status to other drugs, medicaments and biological substances; Z91.048 Other nonmedicinal substance allergy status; W19.XXXD Unspecified fall, subsequent encounter; Y92.009 Unspecified place in unspecified non-institutional (private) residence as the place of occurrence of the external cause; Z85.828 Personal history of other malignant neoplasm of skin
CPT/HCPCS: 36415; 73502; 80053; 82607; 82728; 82947; 83540; 85025; 94664

== ENCOUNTER 2023-06-05 07:00 | Outpatient (CLI) | payer MEDICARE, OTHER ==
[~2023-06-05] VITALS: Ht 170.2 cm; Wt 86.4 kg
[~2023-06-05 07:00] MED LIST changes: +ACHYD1T PO; +BACL10TA PO; +BACL5TAB PO; +CETI10TA17 PO; +CHOL100048 PO; +DULO30CA49 PO; +GABA-486 PO; +HYDR-3820 PO; -HYDR200T46 PO; +HYDR200T71 PO; +INSU100I23 SQ; +INSU100V6 SQ; +INSU200I4 SQ; +LACT20SO2 PO; +MORP-68 PO; +MULT-422 PO; +OMEG12002 PO; +ONDA4TAB11 PO; +POTA-160 PO; +SENN-271 PO
[2023-06-05] MEDS ORDERED: FURO20TA4 PO (13:28)
[2023-06-05] MEDS ORDERED: CETI10CA PO (13:28)
[2023-06-05] MEDS ORDERED: GABA-486 PO (13:28)
[2023-06-05] MEDS ORDERED: LEVO25CA4 PO (13:28)
[2023-06-05] MEDS ORDERED: TIRZ5PEN SQ (13:28)
== END 2023-06-05 13:39 ==
LOC: PREOP 07:00
PROVIDERS: ATTEND Specialist
DX: Z01.818 Encounter for other preprocedural examination (principal)

== ENCOUNTER 2023-06-14 11:55 | Outpatient (CLI) | payer MEDICARE, OTHER ==
[~2023-06-14 11:55] MED LIST changes: +CETI10CA PO; +FURO20TA4 PO; +LEVO25CA4 PO; +TIRZ5PEN SQ
== END 2023-06-18 09:28 | disposition home or self-care (01) ==
LOC: PREOP 11:55
PROVIDERS: ATTEND Specialist
DX: Z01.818 Encounter for other preprocedural examination (principal)

== ENCOUNTER 2023-06-21 11:49 | Day surgery (SDC) | payer MEDICARE, OTHER ==
[~2023-06-21] VITALS: Ht 170 cm; Wt 86.4 kg
[2023-06-21] MEDS: TETRACAINE 0.5% OPHTH SOLN 4 ML BTL (SINGLE DOSE ONLY) OU PRN ×4 (12:13→12:38)
[2023-06-21] MEDS ORDERED: MOXIFLOXACIN OPHTH SOLN 5 MG/ML 0.3 ML SYRINGE OP ONE (12:15)
[2023-06-21] MEDS ORDERED: TIMOLOL 0.5% (CATARACTS) 0.3 ML BTL OU PRN (12:15)
[2023-06-21] MEDS ORDERED: POVIDONE (BETADINE) OPHTH SOLN 5% 30 ML OP ONE (12:15)
[2023-06-21] MEDS ORDERED: LIDOCAINE PF 1% 2 ML VIAL IR PRN (12:15)
[2023-06-21 12:17] VITALS: BP 131/69
[2023-06-21] MEDS: PHENYLEPHRINE 10% OPHTH (NEO-SYN) 5 ML BTL OU SCH ×3 (12:20→12:38)
[2023-06-21] MEDS: TROPICAMIDE 1% OPH SOLN (MYDRIACYL) 15 ML BTL OP SCH ×3 (12:20→12:38)
--- NOTE | 2023-06-21 12:57 | Ophthalmologist Pre-Op Note ---
Pre-Operative Progress Note H&P Reviewed The H&P was reviewed, patient examined and no changes noted. Date H&P Reviewed: Jun 21, 2023 Time H&P Reviewed: 12:57 Pre-Op Dx Cataract, Right Eye TAYLOR DARNELL MD Jun 21, 2023 12:57
--- NOTE | 2023-06-21 13:20 | Ophthalmology Operative Report ---
Cataract removal/placement IOL PREOPERATIVE DIAGNOSIS: Cataract Left Eye POSTOPERATIVE DIAGNOSIS: Cataract Left Eye PROCEDURE: Cataract removal and placement of posterior chamber implant, left eye SURGEON: Timothy Darnell ANESTHESIA: Topical with sedation COMPLICATIONS: None ESTIMATED BLOOD LOSS: Minimal DESCRIPTION OF PROCEDURE: After proper informed consent was obtained, the patient, a 72 female, was taken to the Operating Room and the left eye was anesthetized with tetracaine. The left eye was then prepped and draped in the usual manner. A wire lid speculum was placed. A paracentesis was made at the left hand position. Preservative free lidocaine was injected into the anterior chamber followed by viscoelastic. A clear corneal incision was made in the temporal position. A capsulorrhexis was preformed and the central nuclear and cortical material were removed. The posterior capsule was polished and an Antolin 23.5 AU00T0 was placed into the capsular bag. The residual viscoelastic was aspirated and balanced saline solution was injected into the anterior chamber. Moxifloxacin was injected into the anterior chamber. The wound was checked and found to be water tight. The patient tolerated the procedure well without complications. TIMOTHY DARNELL MD Jun 21, 2023 13:20
[2023-06-21 13:23] VITALS: BP 122/67
--- NOTE | 2023-06-21 14:04 | Anesthesia-General Post-Op ---
MAC Patient Condition Mental Status/LOC: Same as Preop Cardiovascular: Satisfactory Nausea/Vomiting: Absent Respiratory: Satisfactory Pain: Controlled Complications: Absent Post Op Complications Complications None Follow Up Care/Instructions Patient Instructions None needed. Anesthesiology Discharge Order Discharge Order Patient is doing well, no complaints, stable vital signs, no apparent adverse anesthesia problems. No complications reported per nursing. BAN HYMAN CRNA Jun 21, 2023 14:04
== END 2023-06-21 13:27 | disposition home or self-care (01) ==
LOC: SDC 11:49
PROVIDERS: ATTEND Specialist
DX: E11.36 Type 2 diabetes mellitus with diabetic cataract (principal); H25.9 Unspecified age-related cataract; J44.9 Chronic obstructive pulmonary disease, unspecified; E66.9 Obesity, unspecified; Z87.891 Personal history of nicotine dependence; Z79.4 Long term (current) use of insulin; Z79.84 Long term (current) use of oral hypoglycemic drugs; Z79.85 Long-term (current) use of injectable non-insulin antidiabetic drugs; Z95.1 Presence of aortocoronary bypass graft; Z68.29 Body mass index [BMI] 29.0-29.9, adult
CPT/HCPCS: 66984; 82947; V2632

== ENCOUNTER → 2023-07-11 | Outpatient (CLI) | payer MEDICARE, OTHER | LOC: WOUNDCARE 10:13 | PROVIDERS: ATTEND Family Medicine | DX: C44.719 Basal cell carcinoma of skin of left lower limb, including hip (principal); I89.0 Lymphedema, not elsewhere classified; E11.9 Type 2 diabetes mellitus without complications | CPT/HCPCS: 11105; G0463 ==

== ENCOUNTER → 2023-08-30 | Outpatient (CLI) | payer MEDICARE, OTHER | LOC: CARD 10:15 | PROVIDERS: ATTEND Internal Medicine Cardiovascular Disease | DX: I34.0 Nonrheumatic mitral (valve) insufficiency (principal); I25.10 Atherosclerotic heart disease of native coronary artery without angina pectoris; I11.9 Hypertensive heart disease without heart failure | CPT/HCPCS: 93306 ==

== ENCOUNTER → 2023-09-24 | Outpatient (CLI) | payer MEDICARE, OTHER ==
[~2023-09-24] MED LIST changes: +GADOTERATE 0.5 MMOL/ML (CLARISCAN) 20 ML VIAL IV ONE
--- NOTE | 2023-09-24 15:39 | Diagnostic Imaging Report ---
PROCEDURE: MRI lumbar spine with and without contrast. TECHNIQUE: Multiplanar, multisequence MRI of the lumbar spine was performed with and without contrast. INDICATION: Fall with low back pain. Correlated with CT abdomen and pelvis 03/04/2022. FINDINGS: An L1 superior endplate concavity is unchanged from prior and nonedematous. There is decreased fat signal intensity within the lumbar and visible sacral marrow favored to reflect a hypercellular state. Correlate for anemia or metabolic disease. No acute-appearing marrow signal pathology and no geographic marrow replacement. No suspicious enhancement following contrast there is some edema within the partially visualized lower sacrum eccentric to the left. This is below the field of view of the axial acquisitions. If there is low pelvic or sacral pain present, consider pelvic CT to see if there is insufficiency injury or other sacrococcygeal fracture pattern present. The lumbar spine itself appeared nonacute. The conus normal. There is no suspicious enhancement following contrast. No findings of lumbar involvement by infection or neoplasm. The T12-L1 levels and some endplate osteophytes and bulging disc material but no substantial canal or foraminal stenosis. At L2-L3 there is mild circumferential disc bulge and desiccation with mild narrowing of the left neural foramen. At L3-L4 the canal patent. There is facet arthrosis and thickening of the ligamenta flava and mild biforaminal narrowing. At L4-L5, there is buckle thickened ligamenta flava, hypertrophied facets, disc bulge and endplate osteophytes with a moderate to severe degree of canal stenosis with mild left and moderate right neural foraminal narrowing. 5-1 level showed no substantial stenosis. IMPRESSION: 1. No acute lumbar pathology. There is partially visualized marrow edema in the lower sacrum at the margin of the [id number] of this exam. If there tailbone pain consider pelvic CT as followup. 2. Likely hypercellular marrow state with no focal or discrete marrow lesion. No acute lumbar pathology with remote old stable nonedematous L1 superior endplate compression. 3. Degenerative changes without stenosis greatest at L4-L5. Dictated by: Dictated on workstation # [id number]
== END ==
LOC: RAD 13:43
PROVIDERS: ATTEND Pediatrics
DX: M47.816 Spondylosis without myelopathy or radiculopathy, lumbar region (principal)
CPT/HCPCS: 72158